=== PATIENT | male | born 1980 | race Caucasian/White ===

== ENCOUNTER 2023-06-24 17:40 | Emergency (ER) | payer OTHER, SELFPAY ==
[2023-06-24 18:14] VITALS: BP 102/70; PULSE 63; RESP 18; TEMP 36.4; O2SAT 99; BMI 21.7
--- NOTE | 2023-06-24 18:19 | ECG_ITS ---
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 Measurements Intervals [place] Rate: 62 P: 48 OH: 169 QRS: 92 QRSD: 86 T: -7 QT: 434 QTc: 442 Interpretive Statements SINUS RHYTHM BORDERLINE RIGHT AXIS DEVIATION [QRS AXIS > 90] ANTEROSEPTAL MYOCARDIAL INFARCTION , OF INDETERMINATE AGE [40+ ms Q WAVE IN V1-V4] No previous ECG available for comparison Electronically Signed On 06-24-2023 22:00:06 CDT by Julio Monaco M.D. https://[employer].[facility] Scienceshr[facility] [place].[employer]/store/NU/[id number] f
[2023-06-24 19:08] LABS: Basophils # 0.1 10^3/uL (0.0-0.1); Basophils % 0.8 %; Eosinophils # 0.4 10^3/uL (0.0-0.8); Eosinophils % 4.5 %; Hematocrit 33.1 % (37-53); Lymphocytes # 1.1 10^3/uL (0.8-4.8); Lymphocytes % 13.9 %; Mean Corpuscular HGB Conc 31.1 g/dL (30-55); Mean Corpuscular Hemoglobin 28.1 pg (27-33); Mean Corpuscular Volume 90.4 fl (82-101); Mean Platelet Volume 9.7 fL (7.4-10.4); Monocytes # 0.7 10^3/uL (0.2-0.9); Monocytes % 8.6 %; Neutrophils # 5.58 10^3/uL (1.8-7.7); Neutrophils % 72.1 %; Nucleated Red Blood Cells % 0 %; Platelet Count 239 10^3/cmm (157-399); Red Blood Count 3.66 10^6/uL (3.85-5.65); Red Cell Distribution Width 14.6 % (12.1-15.1); White Blood Count 7.75 10^3/uL (3.29-11.43)
[2023-06-24 19:29] LABS: Alanine Aminotransferase 6 U/L (0-41); Albumin Level 2.5 g/dL (3.5-5.2); Alkaline Phosphatase 55 U/L (40-130); Anion Gap 13.7 (5-19); Aspartate Amino Transferase 9 U/L (0-40); Blood Urea Nitrogen 37 mg/dL (6-20); Calcium 8.1 mg/dL (8.5-10.5); Carbon Dioxide 28 mmol/L (22-29); Chloride 101 mmol/L (98-107); Globulin 2.5 g/dL (1.3-4.6); Glomerular Filtration Rate 8.1 mL/min (90-130); Glucose 161 mg/dL (65-115); Magnesium 1.9 mg/dL (1.7-2.3); Osmolality Calculated 300 mOsm/kg (285-295); Potassium 3.7 mmol/L (3.5-5.1); Sodium 139 mmol/L (136-145); Total Bilirubin 0.2 mg/dL (0.15-1.2)
[2023-06-24 19:32] LABS: Creatinine Clr Calc Pharmacy 13.7617
--- NOTE | 2023-06-24 19:53 | ED_ITS ---
HPI - General Adult 2 General: Chief complaint: General Medical Stated complaint: abnormal Lab Time Seen by Provider: 06/24/23 18:25 History of Present Illness: 42-year-old male presents emergency depa rtment after having his labs drawn at his nephrology office. Patient states that they contacted him and told him his potassium was 8.1 to come to the emergency department immediately for evaluation. Patient does have a history of CVA and coronary artery bypass graft as well as coronary artery disease and is on peritoneal dialysis. Associated symptoms: Deny chest pain, dyspnea, malaise or palpitations Review of Systems 2 General: Reports: 10 or more systems reviewed and unremarkable except in HPI and below Const: Reports: fatigue; Denies: fever(s) or malaise Card: Denies: chest pain or palpitations Resp: Denies: dyspnea or productive cough Musc: Denies: back pain Physical Exam 2 Narrative: EXAM NARRATIVE: Constitutional: the patient appears well nourished and of normal development. Vital signs as documented. No acute distress at present. Alert and oriented-to person, place, time and situation. Head, eyes, ears, nose, mouth, throat: Normocephalic, atraumatic. Pupils-equal, round, reactive to light. No scleral icterus. Normal-appearing external ears. Normal appearing nasal turbinates, no drainage. No obvious oral lesions, posterior oropharynx without erythema or exudates. Neck: Supple, trachea is midline, no lymphadenopathy, no jugular venous distension, thyromegaly, or carotid bruits. Carotid upstrokes are brisk bilaterally. Lungs: clear to auscultation to all lung amado. Symmetrical rise and fall of chest, no obvious signs of increased work of breathing at present. Cardiac: Regular rate and rhythm, positive S1, S2. No murmurs, rubs or gallops that I can appreciate Abdomen: Soft, non-tender to palpation, normal active bowel sounds to all quadrants. No palpable masses, no organomegaly and abdominal bruits. Extremities: 2+ pulses in the upper extremities that are equal bilaterally, 2+ pulses in the lower extremities that are equal bilaterally. Non-edematous. Moves all extremities well, sensation to all extremities are noted. Skin: Warm, dry, intact. Course 2 Vital Signs: Vital signs: Vital Signs Temperature 97.5 F L 06/24/23 18:14 Pulse Rate 63 06/24/23 18:14 Respiratory Rate 18 06/24/23 18:14 Blood Pressure 102/70 06/24/23 18:14 Pulse Oximetry 99 06/24/23 18:14 Oxygen Delivery Me thod Room Air 06/24/23 18:14 MDM - General Adult Medical Decision Making I will repeat a CBC and CMP as well as magnesium level and obtain EKG. Reevaluation of the patient's potassium level demonstrated that it was 3.7 I suspect the false elevation of 8.1 was due to hemolysis of the blood draw. Differential Diagnosis Hemolysis of blood sample, electrolyte abnormality Medical Records I reviewed the patient's medical records. Lab Data I reviewed the patient's lab results. 06/24/23 19:02 06/24/23 19:02 Laboratory Results WBC 7.75 10^3/uL (3.29-11.43) 06/24/23 19: RBC 3.66 10^6/uL (3.85-5.65) L 06/24/23 19:02 Hgb 10.30 g/dL (11.27-16.99) L 06/24/23 19:02 Hct 33.1 % (37-53) L 06/24/23 19: MCV 90.4 fl (82-101) 06/24/23 19: MCH 28.1 pg (27-33) 06/24/23 19: MCHC 31.1 g/dL (30-55) 06/24/23 19:02 RDW 14.6 % (12.1-15.1) 06/24/23 19:02 Plt Count 239 10^3/cmm (157-399) 06/24/23 19:02 MPV 9.7 fL (7.4-10.4) 06/24/23 19:02 Neut % (Auto) 72.1 % 06/24/23 19: Lymph % (Auto) 13.9 % 06/24/23 19:02 Coffee % (Auto) 8.6 % 06/24/23 19:02 Eos % (Auto) 4.5 % 06/24/23 19:02 Baso % (Auto) 0.8 % 06/24/23 19: Neut # (Auto) 5.58 10^3/uL (1.8-7.7) 06/24/23 19:02 Lymph # (Auto) 1.1 10^3/uL (0.8-4.8) 06/24/23 19:02 Coffee # (Auto) 0.7 10^3/uL (0.2-0.9) 06/24/23 19:02 Eos # (Auto) 0.4 10^3/uL (0.0-0.8) 06/24/23 19:02 Baso # (Auto) 0.1 10^3/uL (0.0-0.1) 06/24/23 19:02 Nucleated RBC % (auto) 0 % 06/24/23 19:02 Nucleated RBCs # 0.0 /100WBC 06/24/23 19:02 Sodium 139 mmol/L (136-145) 06/24/23 19:02 Potassium 3.7 mmol/L (3.5-5.1) 06/24/23 19:02 Chloride 101 mmol/L (98-107) 06/24/23 19:02 Carbon Dioxide 28 mmol/L (22-29) 06/24/23 19:02 Anion Gap 13.7 (5-19) 06/24/23 19:02 BUN 37 mg/dL (6-20) H 06/24/23 19:02 Creatinine 7.4 mg/dL (0.7-1.2) H* 06/24/23 19:02 GFR Calculation 8.1 mL/min (90-130) L 06/24/23 19:02 Glucose 161 mg/dL (65-115) H 06/24/23 19:02 Calculated Osmolality 300 mOsm/kg (285-295) H 06/24/23 19:02 Calcium 8.1 mg/dL (8.5-10.5) L 06/24/23 19:02 Magnesium 1.9 mg/dL (1.7-2.3) 06/24/23 19:02 Total Bilirubin 0.2 mg/dL (0.15-1.2) 06/24/23 19:02 AST 9 U/L (0-40) 06/24/23 19:02 ALT 6 U/L (0-41) 06/24/23 19:02 Alkaline Phosphatase 55 U/L (40-130) 06/24/23 19:02 Total Protein 5.0 g/dL (6.6-8.7) L 06/24/23 19:02 Albumin 2.5 g/dL (3.5-5.2) L 06/24/23 19:02 Globulin 2.5 g/dL (1.3-4.6) 06/24/23 19:02 No radiology studies performed this visit EKG Data EKG 1: Interpretation: Twelve-lead EKG obtained at 1819 reviewed at 1820 demonstrates sinus rhythm ventricular rate 62 bpm, SD interval 169 QRS duration 86 QT 434 QTc [address] elevation or depression to demonstrate acute ischemia or infarction. Discharge Plan Discharge Patient Disposition: Home Clinical Impression: Abnormal laboratory test result Condition: Stable Discharge Orders: Discharge ED (Routine); Ordered 06/24/23 Ordered By: Hiram Abdul Discharge Diet: Usual diet Discharge Activity: Resume usual activity Patient Instructions: Opioid Safety, Pain Management Activity Restrictions/Additional Instructions: Activity Restrictions/Additional Instructions: Thank you for choosing [facility] for your healthcare needs today. Please realize that you were seen in the Emergency Department and that we are providing you with an emergency medical screening exam and this may not be a complete and all inclusive of all the testing and or medical work-up that you may need to determine your ailment or severity of your illness. It is very important that you follow-up as instructed with your Primary care provider or Specialist for additional evaluation and to discuss your medical treatment plan. You may return to the Emergency Department should you have concerns or if your condition changes or worsens in any way. Coding Level of Care Code ED Analytical Clerk for Monik Riley
[2023-06-24 20:14] VITALS: BP 134/88; PULSE 88; RESP 18; O2SAT 100
== END 2023-06-24 20:16 | disposition home or self-care (01) ==
PROVIDERS: Emergency Medicine; Emergency Provider Internal Medicine
DX: R79.9 Abnormal finding of blood chemistry, unspecified (principal)
CPT/HCPCS: 36415; 80053; 83735; 85025; 93005; 99284

== ENCOUNTER 2023-08-08 00:46 | Emergency (ER) | payer OTHER, SELFPAY ==
[2023-08-08 00:47] VITALS: BP 182/96; PULSE 86; RESP 18; TEMP 37.3; O2SAT 97; BMI 23.0
[2023-08-08 01:04] VITALS: BP 182/96; PULSE 89; RESP 16; O2SAT 92
--- NOTE | 2023-08-08 01:22 | W.ED.GENADLT ---
HPI - General Adult General: Chief complaint: General Medical Stated complaint: infection around dialysis port Time Seen by Provider: 08/08/23 00:57 History of Present Illness: 42-year-old peritoneal dialysis patient. He states that he had a lesion on his anterior abdominal wall for the past 2 to 3 days. No fever. It busted open this evening, and had some drainage. He was concerned that it may track into his perineum given his catheter site. He does not feel ill otherwise. He is not having significant abdominal tenderness. Associated symptoms: Reports rash; Deny chest pain, dyspnea or vomiting Review of Systems Const: Denies: fever(s) or chills Card: Denies: chest pain Resp: Denies: dyspnea GI: Denies: abdominal pain or vomiting Skin/Breast: Reports: rash Physical Exam Const: COMMON NORMALS: no acute distress GENERAL APPEARANCE: not ill appearing HENMT: COMMON NORMALS: normocephalic and atraumatic HEAD & SCALP: normocephalic and atraumatic Eye: COMMON NORMALS: Equal, round and reactive pupils present and EOMs intact bilaterally PUPIL: Yes Equal, round and reactive pupils present Neck/C-Spine: GENERAL: Yes trachea midline Chest: CHEST: Yes Symmetrical chest wall rise Resp: COMMON NORMALS: normal respiratory effort and No use of accessory muscles Cardio: COMMON NORMALS: regular rate and regular rhythm RATE: regular rate RHYTHM: regular rhythm GI: COMMON NORMALS: Soft to palpation PALPATION: Yes Soft to palpation, No Tenderness to palpation present (GI) and No Guarding due to palpation present (GI) OTHER: Peritoneal catheter site clean. No tenderness. Neuro: REGINA COMA SCALE: document GCS findings Regina coma scale eye opening: Spontaneous Regina coma scale verbal response: Orientated Burns coma scale motor response: Obey commands Burns coma scale total score: 15 Skin: NARRATIVE SKIN EXAM: Anterior abdominal wall small cellulitic region with erupted small abscess in the area. Course Vital Signs: Vital signs: Vital Signs Temperature 99.1 F 08/08/23 00:47 Pulse Rate 95 08/08/23 02:42 Respiratory Rate 16 08/08/23 02:42 Blood Pressure 168/92 08/08/23 02:42 Pulse Oximetry 98 08/08/23 02:42 Oxygen Delivery Me thod Room Air 08/08/23 00:47 [facility] - General Adult Medical Decision Making The patient has a completely benign belly exam in terms of peritoneal tenderness. He has minimal cellulitis to the anterior abdominal wall with some drainage from the small abscess site. His white blood cell count is 13.9. He is afebrile. His potassium is mildly high at 5.7. He was informed of this. Antibiotics for the treatment of the abdominal wall cellulitis. Return for any new or worsening symptoms. Lab Data 08/08/23 01:44 08/08/23 01:44 Laboratory Results WBC 13.91 10^3/uL (3.29-11.43) H 08/08/23 01:44 RBC 3.21 10^6/uL (3.85-5.65) L 08/08/23 01:44 Hgb 9.20 g/dL (11.27-16.99) L 08/08/23 01:44 Hct 29.5 % (37-53) L 08/08/23 01:44 MCV 91.9 fl (82-101) 08/08/23 01:44 MCH 28.7 pg (27-33) 08/08/23 01:44 MCHC 31.2 g/dL (30-55) 08/08/23 01:44 RDW 15.4 % (12.1-15.1) H 08/08/23 01:44 Plt Count 345 10^3/cmm (157-399) 08/08/23 01:44 MPV 10.0 fL (7.4-10.4) 08/08/23 01:44 Neut % (Auto) 83.0 % 08/08/23 01:44 Lymph % (Auto) 6.8 % 08/08/23 01:44 [place] % (Auto) 6.8 % 08/08/23 01:44 Eos % (Auto) 2.4 % 08/08/23 01:44 Baso % (Auto) 0.7 % 08/08/23 01:44 Neut # (Auto) 11.54 10^3/uL (1.8-7.7) H 08/08/23 01:44 Lymph # (Auto) 0.9 10^3/uL (0.8-4.8) 08/08/23 01:44 [place] # (Auto) 1.0 10^3/uL (0.2-0.9) H 08/08/23 01:44 Eos # (Auto) 0.3 10^3/uL (0.0-0.8) 08/08/23 01:44 Baso # (Auto) 0.1 10^3/uL (0.0-0.1) 08/08/23 01:44 Nucleated RBC % (auto) 0 % 08/08/23 01:44 Nucleated RBCs # 0.0 /100WBC 08/08/23 01:44 Sodium 132 mmol/L (136-145) L 08/08/23 01:44 Potassium 5.7 mmol/L (3.5-5.1) H 08/08/23 01:44 Chloride 91 mmol/L (98-107) L 08/08/23 01:44 Carbon Dioxide 25 mmol/L (22-29) 08/08/23 01:44 Anion Gap 21.7 (5-19) H 08/08/23 01:44 BUN 66 mg/dL (6-20) H 08/08/23 01:44 Creatinine 9.4 mg/dL (0.7-1.2) H* 08/08/23 01:44 GFR Calculation 6.1 mL/min (90-130) L 08/08/23 01:44 Glucose 158 mg/dL (65-115) H 08/08/23 01:44 Calculated Osmolality 296 mOsm/kg (285-295) H 08/08/23 01:44 Calcium 9.0 mg/dL (8.5-10.5) 08/08/23 01:44 C-Reactive Protein 99.5 mg/L (0.0-4.9) H 08/08/23 01:44 No radiology studies performed this visit Discharge Plan Discharge Patient Disposition: Home Clinical Impression: Cellulitis of abdominal wall, Acute hyperkalemia Condition: Stable Prescriptions: New doxycycline hyclate 100 mg tablet 100 mg PO BID 10 Days Qty: 20 0RF Discharge Orders: Discharge ED (Routine); Ordered 08/08/23 Ordered By: Gary Paulino Patient Instructions: Cellulitis (ED), Hyperkalemia (ED), Opioid Safety, Pain Management Activity Restrictions/Additional Instructions: Medication as directed. Monitor very closely for temperature, check at least twice daily for the next few days. Return for worsening abdominal pain, spreading redness despite 2-3 doses of antibiotics, fever greater than 100, vomiting, other concerning symptoms. Please ensure that you complete your peritoneal dialysis, as your potassium is mildly elevated. Coding Level of Care Code ED Supervisor [employer] for Monik Riley
[2023-08-08] MEDS: doxycycline 100 mg Tablet PO (01:31)
[2023-08-08 01:51] VITALS: BP 155/92; PULSE 93; RESP 20; O2SAT 97
[2023-08-08 01:51] LABS: Basophils # 0.1 10^3/uL (0.0-0.1); Basophils % 0.7 %; Eosinophils # 0.3 10^3/uL (0.0-0.8); Eosinophils % 2.4 %; Hematocrit 29.5 % (37-53); Lymphocytes # 0.9 10^3/uL (0.8-4.8); Lymphocytes % 6.8 %; Mean Corpuscular HGB Conc 31.2 g/dL (30-55); Mean Corpuscular Hemoglobin 28.7 pg (27-33); Mean Corpuscular Volume 91.9 fl (82-101); Monocytes % 6.8 %; Neutrophils # 11.54 10^3/uL (1.8-7.7); Nucleated Red Blood Cells % 0 %; Platelet Count 345 10^3/cmm (157-399); Red Blood Count 3.21 10^6/uL (3.85-5.65); Red Cell Distribution Width 15.4 % (12.1-15.1); White Blood Count 13.91 10^3/uL (3.29-11.43)
[2023-08-08 02:01] VITALS: BP 169/96; PULSE 99; RESP 16; O2SAT 95
[2023-08-08 02:03] LABS: Blood Urea Nitrogen 66 mg/dL (6-20); C Reactive Protein 99.5 mg/L (0.0-4.9); Carbon Dioxide 25 mmol/L (22-29); Chloride 91 mmol/L (98-107); Creatinine Clr Calc Pharmacy 11.0937; Glomerular Filtration Rate 6.1 mL/min (90-130); Glucose 158 mg/dL (65-115); Osmolality Calculated 296 mOsm/kg (285-295); Sodium 132 mmol/L (136-145)
[2023-08-08 02:04] LABS: Anion Gap 21.7 (5-19); Potassium 5.7 mmol/L (3.5-5.1)
[2023-08-08 02:42] VITALS: BP 168/92; PULSE 95; RESP 16; O2SAT 98
== END 2023-08-08 02:43 | disposition home or self-care (01) ==
PROVIDERS: Emergency Provider Emergency Medicine
DX: L03.311 Cellulitis of abdominal wall (principal); E87.5 Hyperkalemia
CPT/HCPCS: 36415; 80048; 85025; 86140; 99283

== ENCOUNTER 2023-09-14 16:25 | Emergency (ER) | payer MEDICARE, SELFPAY ==
[2023-09-14] VITALS (12 sets, daily range): BP systolic 147–182; BP diastolic 72–98; PULSE 67–74; RESP 16–18; TEMP 36.6–37; O2SAT 98–100; BMI 21.9
--- NOTE | 2023-09-14 16:53 | ED_ITS ---
Documented by User: Hugo Cruz DO 09/14/23 17:43 HPI - Recheck/Abnormal Lab/Rx 2 General: Chief Complaint: Recheck/Abnormal Lab/Rx Stated Complaint: Hemoglobin was 6.2, sent by dr Tatum Seen by Provider: 09/14/23 16:36 Source: patient and family Mode of arrival: ambulatory Limitations: no limitations History of Present Illness: This patient was referred by dialysis coordinator to the emergency department. Apparently on routine laboratories he was noted to have a hemoglobin of 6.2. Patient denies any knowledge of any blood loss. He denies any black tarry stools blood in his stools vomiting blood etc. He denies any fevers or chills chest pain shortness of breath. He states his appetites been diminished with no particular reason. He states he is also felt a little more fatigued than usual. He has end-stage renal disease and on nightly peritoneal dialysis. He has not had any fevers or chills and his dialysate has been clear which is confirmed by his spouse who is present. No prior history of gastrointestinal bleeding etc. He does have known coronary disease had coronary artery bypass several years ago and had a what was told to him by small heart attack in the within the last 2 years. Again he denies any ongoing constitutional symptoms other than described. He is an ex-smoker and does not consume alcohol. Context: called for abnormal lab result Review of Systems 2 Const: Reports: change in appetite and fatigue; Denies: fever(s) or chills Eyes: Denies: change in vision ENMT: Denies: throat pain, odynophagia, nasal discharge or nasal congestion Card: Denies: chest pain, palpitations, irregular heart rhythm, syncope or pre-syncope Resp: Denies: dyspnea, productive cough or non-productive cough GI: Denies: abdominal pain, nausea, vomiting, hematemesis, hematochezia or melena : Reports: oliguria; Denies: flank pain Musc: Denies: neck pain, back pain, extremity pain or extremity swelling Skin/Breast: Denies: rash Neuro: Denies: headache(s), numbness in extremities or weakness in extremities [place]/Lymph: Denies: easy bruising, easy bleeding or petechiae Physical Exam 2 Narrative: EXAM NARRATIVE: Pale appearing and thin gentleman but he is oriented and responsive and appears to be in no acute distress. Responds appropriately to examiner. Const: COMMON NORMALS: no acute distress, patient oriented x3 and alert G ENERAL APPEARANCE: cooperative, comfortable and well kempt NUTRITIONAL APPEARANCE: thin HENMT: COMMON NORMALS: Normal external nose present, Normal nasal mucous membranes and turbinates present, moist oral mucous membranes and oropharynx normal NOSE: Normal external nose present and Normal nasal mucous membranes and turbinates present TEETH & GINGIVA: Yes gingiva abnormal pallid Eye: COMMON NORMALS: Equal, round and reactive pupils present and EOMs intact bilaterally PUPIL: Yes Equal, round and reactive pupils present Neck/C-Spine: COMMON NORMALS: full ROM and no JVD Chest: COMMONS NORMALS: normal inspection of the chest and normal palpation of entire chest wall Resp: COMMON NORMALS: normal respiratory effort, No use of accessory muscles and clear to auscultation bilaterally AUSCULTATION: clear to auscultation bilaterally Cardio: COMMON NORMALS: no JVD, regular rate, No murmurs present (Cardio) and Peripheral pulses 2+ throughout JUGULAR VENOUS DISTENTION: no JVD RATE: r egular rate PERIPHERAL PULSES: Peripheral pulses 2+ throughout GI: COMMON NORMALS: Normal to inspection, nondistended, normoactive bowel sounds present, Soft to palpation and non-tender PALPATION: Yes Soft to palpation Back/Pelvis: COMMON NORMALS: no thoracic nor lumbar tenderness and thoraco- lumbar ROM normal Extremity: COMMON NORMALS: normal to inspection, full ROM, no calf tenderness and no pedal edema Neuro: COMMON NORMALS: patient oriented x3, moves all extremities, no focal motor deficits and no sensory deficits noted SENSORIUM/ORIENTATION: Yes alert Psych: COMMON NORMALS: mental status grossly normal APPEARANCE: Yes well kempt Skin: COMMON NORMALS: no rashes or lesions noted, turgor normal and no petechiae GENERAL SKIN EXAM: no rashes or lesions noted and turgor normal Course 2 Reevaluation(s): Reevaluation #1: I confirmed with the patient and spouse of his hemoglobin being less than 7 and given his coronary disease is prudent to go ahead and give him a unit of blood. Again he has no history to suggest acute blood loss so I strongly encouraged him to monitor his stools for tarry black tarry stools bright red blood etc. and that he should have a repeat blood count in approximately 7 to 10 days to ensure that he is not having any ongoing blood loss. We also given a single dose of oral potassium of 25meq. I encouraged potassium rich foods. Also encouraged a repeat potassium level in same time he gets a repeat blood count. Both patient and spouse voiced an understanding of the plan of care and the recommendations. Time: 17:40 Vital Signs: Vital signs: Vital Signs Temperature 98.1 F 09/14/23 20:49 Pulse Rate 73 09/14/23 20:49 Respiratory Rate 18 09/14/23 20:49 Blood Pressure 162/85 09/14/23 20:49 Pulse Oximetry 100 09/14/23 20:49 Oxygen Delivery Me thod Room Air 09/14/23 19:21 MDM - Recheck/Abnormal Lab/Rx Medical Decision Making Patient was referred to the emergency department by dialysis coordinator due to a low hemoglobin. No history to suggest acute blood loss. He specifically denied melanotic stools bright red blood per rectum or any other potential source of blood loss. Repeat hemoglobin here was 6.9 with hematocrit of 22.7 with platelet count of 381,000. He has known coronary disease had previous coronary bypass and is symptomatic with fatigue and decreased appetite. Plan will be to transfuse 1 unit of packed red cells and then plan for discharge with close follow-up. Medical Records I reviewed the patient's medical records. Prior CBC Lab Data I reviewed the patient's lab results. 09/14/23 16:46 09/14/23 16:46 Laboratory Results WBC 11.14 10^3/uL (3.29-11.43) 09/14/23 16:46 RBC 2.49 10^6/uL (3.85-5.65) L 09/14/23 16:46 Hgb 6.90 g/dL (11.27-16.99) L 09/14/23 16:46 Hct 22.7 % (37-53) L 09/14/23 16:46 MCV 91.2 fl (82-101) 09/14/23 16:46 MCH 27.7 pg (27-33) 09/14/23 16:46 MCHC 30.4 g/dL (30-55) 09/14/23 16:46 RDW 13.9 % (12.1-15.1) 09/14/23 16:46 Plt Count 381 10^3/cmm (157-399) 09/14/23 16:46 MPV 10.0 fL (7.4-10.4) 09/14/23 16:46 Neut % (Auto) 85.7 % 09/14/23 16:46 Lymph % (Auto) 7.7 % 09/14/23 16:46 [place] % (Auto) 4.8 % 09/14/23 16:46 Eos % (Auto) 0.9 % 09/14/23 16:46 Baso % (Auto) 0.4 % 09/14/23 16:46 Neut # (Auto) 9.53 10^3/uL (1.8-7.7) H 09/14/23 16:46 Lymph # (Auto) 0.9 10^3/uL (0.8-4.8) 09/14/23 16:46 [place] # (Auto) 0.5 10^3/uL (0.2-0.9) 09/14/23 16:46 Eos # (Auto) 0.1 10^3/uL (0.0-0.8) 09/14/23 16:46 Baso # (Auto) 0.1 10^3/uL (0.0-0.1) 09/14/23 16:46 Nucleated RBC % (auto) 0 % 09/14/23 16:46 Nucleated RBCs # 0.0 /100WBC 09/14/23 16:46 Sodium 132 mmol/L (136-145) L 09/14/23 16:46 Potassium 2.8 mmol/L (3.5-5.1) L* 09/14/23 16:46 Chloride 90 mmol/L (98-107) L 09/14/23 16:46 Carbon Dioxide 26 mmol/L (22-29) 09/14/23 16:46 Anion Gap 18.8 (5-19) 09/14/23 16:46 BUN 56 mg/dL (6-20) H 09/14/23 16:46 Creatinine 8.6 mg/dL (0.7-1.2) H* 09/14/23 16:46 GFR Calculation 6.8 mL/min (90-130) L 09/14/23 16:46 Glucose 227 mg/dL (65-115) H 09/14/23 16:46 Calculated Osmolality 297 mOsm/kg (285-295) H 09/14/23 16:46 Calcium 8.5 mg/dL (8.5-10.5) 09/14/23 16:46 Total Bilirubin 0.2 mg/dL (0.15-1.2) 09/14/23 16:46 AST 7 U/L (0-40) 09/14/23 16:46 ALT < 5 U/L (0-41) 09/14/23 16:46 Alkaline Phosphatase 63 U/L (40-130) 09/14/23 16:46 Total Protein 6.9 g/dL (6.6-8.7) 09/14/23 16:46 Albumin 2.5 g/dL (3.5-5.2) L 09/14/23 16:46 Globulin 4.4 g/dL (1.3-4.6) 09/14/23 16:46 Blood Type AB Positive 09/14/23 17:49 Rho(D) Type Rh positive 09/14/23 17:49 Antibody Screen Negative 09/14/23 17:49 Crossmatch See Detail 09/14/23 17:49 Discharge Plan Discharge Patient Disposition: Home Clinical Impression: Anemia Qualifiers: Anemia type: due to chronic kidney disease Chronic kidney disease Qualifiers: Chronic kidney disease stage: on chronic dialysis Qualified Code(s): N18.6 - End stage renal disease Condition: Stable Discharge Orders: Discharge ED (Routine); Ordered 09/14/23 Ordered By: Marixa Duran Discharge Diet: Usual diet Discharge Activity: Increase activity as tolerated Patient Instructions: Opioid Safety, Pain Management Activity Restrictions/Additional Instructions: As we discussed you had an anemia that we transfused you a unit of red blood cells because of your history of coronary artery disease. Did not have any history to suggest this ongoing blood loss however we strongly recommend that you monitor your stools for any blood or black tarry stools. We also recommend that you get a repeat blood count in 1 week to ensure that your blood count is remaining stable and increasing. We also recommend at that time you should have your potassium rechecked to make sure that it is back to the normal range as well. We encourage potassium rich foods such as citrus leafy green vegetables etc. If it anytime you discover that you have bright red blood in your stools black tarry stools become short of breath chest pain or any other concerning symptoms return to this or the nearest emergency department immediately. Coding Level of Care Code ED Ophthalmology Surgical Technician for Chg Fwd Documented by User: Marixa Duran MD 09/14/23 21:06 HPI - Recheck/Abnormal Lab/Rx 2 General: Chief Complaint: Recheck/Abnormal Lab/Rx Stated Complaint: Hemoglobin was 6.2, sent by Time Seen by Provider: 09/14/23 16:36 Course 2 Vital Signs: Vital signs: Vital Signs Temperature 98.1 F 09/14/23 20:49 Pulse Rate 73 09/14/23 20:49 Respiratory Rate 18 09/14/23 20:49 Blood Pressure 162/85 09/14/23 20:49 Pulse Oximetry 100 09/14/23 20:49 Oxygen Delivery Me thod Room Air 09/14/23 19:21 MDM - Recheck/Abnormal Lab/Rx Lab Data 09/14/23 16:46 09/14/23 16:46 Laboratory Results WBC 11.14 10^3/uL (3.29-11.43) 09/14/23 16:46 RBC 2.49 10^6/uL (3.85-5.65) L 09/14/23 16:46 Hgb 6.90 g/dL (11.27-16.99) L 09/14/23 16:46 Hct 22.7 % (37-53) L 09/14/23 16:46 MCV 91.2 fl (82-101) 09/14/23 16:46 MCH 27.7 pg (27-33) 09/14/23 16:46 MCHC 30.4 g/dL (30-55) 09/14/23 16:46 RDW 13.9 % (12.1-15.1) 09/14/23 16:46 Plt Count 381 10^3/cmm (157-399) 09/14/23 16:46 MPV 10.0 fL (7.4-10.4) 09/14/23 16:46 Neut % (Auto) 85.7 % 09/14/23 16:46 Lymph % (Auto) 7.7 % 09/14/23 16:46 [place] % (Auto) 4.8 % 09/14/23 16:46 Eos % (Auto) 0.9 % 09/14/23 16:46 Baso % (Auto) 0.4 % 09/14/23 16:46 Neut # (Auto) 9.53 10^3/uL (1.8-7.7) H 09/14/23 16:46 Lymph # (Auto) 0.9 10^3/uL (0.8-4.8) 09/14/23 16:46 [place] # (Auto) 0.5 10^3/uL (0.2-0.9) 09/14/23 16:46 Eos # (Auto) 0.1 10^3/uL (0.0-0.8) 09/14/23 16:46 Baso # (Auto) 0.1 10^3/uL (0.0-0.1) 09/14/23 16:46 Nucleated RBC % (auto) 0 % 09/14/23 16:46 Nucleated RBCs # 0.0 /100WBC 09/14/23 16:46 Sodium 132 mmol/L (136-145) L 09/14/23 16:46 Potassium 2.8 mmol/L (3.5-5.1) L* 09/14/23 16:46 Chloride 90 mmol/L (98-107) L 09/14/23 16:46 Carbon Dioxide 26 mmol/L (22-29) 09/14/23 16:46 Anion Gap 18.8 (5-19) 09/14/23 16:46 BUN 56 mg/dL (6-20) H 09/14/23 16:46 Creatinine 8.6 mg/dL (0.7-1.2) H* 09/14/23 16:46 GFR Calculation 6.8 mL/min (90-130) L 09/14/23 16:46 Glucose 227 mg/dL (65-115) H 09/14/23 16:46 Calculated Osmolality 297 mOsm/kg (285-295) H 09/14/23 16:46 Calcium 8.5 mg/dL (8.5-10.5) 09/14/23 16:46 Total Bilirubin 0.2 mg/dL (0.15-1.2) 09/14/23 16:46 AST 7 U/L (0-40) 09/14/23 16:46 ALT < 5 U/L (0-41) 09/14/23 16:46 Alkaline Phosphatase 63 U/L (40-130) 09/14/23 16:46 Total Protein 6.9 g/dL (6.6-8.7) 09/14/23 16:46 Albumin 2.5 g/dL (3.5-5.2) L 09/14/23 16:46 Globulin 4.4 g/dL (1.3-4.6) 09/14/23 16:46 Blood Type AB Positive 09/14/23 17:49 Rho(D) Type Rh positive 09/14/23 17:49 Antibody Screen Negative 09/14/23 17:49 Crossmatch See Detail 09/14/23 17:49 No radiology studies performed this visit Discharge Plan Discharge Patient Disposition: Home Clinical Impression: Anemia Qualifiers: Anemia type: due to chronic kidney disease Chronic kidney disease Qualifiers: Chronic kidney disease stage: on chronic dialysis Qualified Code(s): N18.6 - End stage renal disease Condition: Stable Discharge Orders: Discharge ED (Routine); Ordered 09/14/23 Ordered By: Marixa Duran Discharge Diet: Usual diet Discharge Activity: Increase activity as tolerated Patient Instructions: Opioid Safety, Pain Management Activity Restrictions/Additional Instructions: As we discussed you had an anemia that we transfused you a unit of red blood cells because of your history of coronary artery disease. Did not have any history to suggest this ongoing blood loss however we strongly recommend that you monitor your stools for any blood or black tarry stools. We also recommend that you get a repeat blood count in 1 week to ensure that your blood count is remaining stable and increasing. We also recommend at that time you should have your potassium rechecked to make sure that it is back to the normal range as well. We encourage potassium rich foods such as citrus leafy green vegetables etc. If it anytime you discover that you have bright red blood in your stools black tarry stools become short of breath chest pain or any other concerning symptoms return to this or the nearest emergency department immediately. Coding Level of Care Code ED Ophthalmology Surgical Technician for Monik Riley
[2023-09-14 16:55] LABS: Basophils # 0.1 10^3/uL (0.0-0.1); Basophils % 0.4 %; Eosinophils # 0.1 10^3/uL (0.0-0.8); Eosinophils % 0.9 %; Hematocrit 22.7 % (37-53); Lymphocytes # 0.9 10^3/uL (0.8-4.8); Lymphocytes % 7.7 %; Mean Corpuscular HGB Conc 30.4 g/dL (30-55); Mean Corpuscular Hemoglobin 27.7 pg (27-33); Mean Corpuscular Volume 91.2 fl (82-101); Monocytes # 0.5 10^3/uL (0.2-0.9); Monocytes % 4.8 %; Neutrophils # 9.53 10^3/uL (1.8-7.7); Neutrophils % 85.7 %; Nucleated Red Blood Cells % 0 %; Platelet Count 381 10^3/cmm (157-399); Red Blood Count 2.49 10^6/uL (3.85-5.65); Red Cell Distribution Width 13.9 % (12.1-15.1); White Blood Count 11.14 10^3/uL (3.29-11.43)
[2023-09-14 17:09] LABS: Alanine Aminotransferase < 5 U/L (0-41); Albumin Level 2.5 g/dL (3.5-5.2); Alkaline Phosphatase 63 U/L (40-130); Anion Gap 18.8 (5-19); Aspartate Amino Transferase 7 U/L (0-40); Blood Urea Nitrogen 56 mg/dL (6-20); Calcium 8.5 mg/dL (8.5-10.5); Carbon Dioxide 26 mmol/L (22-29); Chloride 90 mmol/L (98-107); Creatinine Clr Calc Pharmacy 11.8983; Globulin 4.4 g/dL (1.3-4.6); Glomerular Filtration Rate 6.8 mL/min (90-130); Glucose 227 mg/dL (65-115); Osmolality Calculated 297 mOsm/kg (285-295); Sodium 132 mmol/L (136-145); Total Bilirubin 0.2 mg/dL (0.15-1.2); Total Protein 6.9 g/dL (6.6-8.7)
[2023-09-14 17:19] LABS: Potassium 2.8 mmol/L (3.5-5.1)
[2023-09-14] MEDS: potassium bicarb 25 mEq Tablet PO (18:11)
--- NOTE | 2023-09-14 19:20 | PC.NURSE ---
Patient signed blood consent form, had no questions or concerns after education. Witnessed by charge nurse Irena NAIK.
--- NOTE | 2023-09-14 19:36 | PC.NURSE ---
Patient denies adverse effects from blood transfusion at this time; denies shortness of breath, chest pain, general illness.
[2023-09-14] MEDS: sodium chloride 0.9% 100 mL Bag 50 ML IV (19:51)
--- NOTE | 2023-09-14 21:24 | PC.NURSE ---
1 unit of blood finished transfusion, patient had no questions, concerns or complaints.
== END 2023-09-14 22:26 | disposition home or self-care (01) ==
PROVIDERS: Emergency Medicine; Emergency Provider Emergency Medicine
DX: N18.6 End stage renal disease (principal); D63.1 Anemia in chronic kidney disease; Z99.2 Dependence on renal dialysis; I25.10 Atherosclerotic heart disease of native coronary artery without angina pectoris; Z95.1 Presence of aortocoronary bypass graft; I25.2 Old myocardial infarction
CPT/HCPCS: 36415; 36430; 80053; 85025; 86850; 86900; 86920; 99284; P9016

== ENCOUNTER 2023-09-15 01:04 | Emergency (ER) | payer MEDICARE, SELFPAY ==
[2023-09-15 01:06] VITALS: BP 201/99; PULSE 78; RESP 16; TEMP 37.2; O2SAT 98; BMI 21.9
--- NOTE | 2023-09-15 01:13 | USR_ITS ---
PROCEDURE INFORMATION: Exam: US Duplex Left Lower Extremity Arteries Or Arterial Bypass Grafts Exam date and time: 09/15/2023 1:48 AM Age: 42 years old Clinical indication: Other: Marked swelling of the left lateral calf 4 hours after blood transfusion for anemia. Patient HX: Iddm x 10 years. ; Additional info: Swelling left caballero TECHNIQUE: Imaging protocol: Left Real-time duplex scan of the arteries or arterial bypass grafts of the left lower extremity with 2-D deal scale, color Doppler flow and spectral waveform analysis. Images documented and saved. COMPARISON: US CV venous duplex [facility] [id number] 09/15/2023 1:27 AM FINDINGS: Left common femoral artery: No occlusion or significant stenosis. Normal waveform. Left superficial femoral artery: No occlusion or significant stenosis. Normal waveform. Left popliteal artery: No occlusion or significant stenosis. Normal waveform. Left calf/foot arteries: No occlusion or significant stenosis in the visualized arteries. Normal waveforms. Dorsalis pedis artery is patent. Soft tissues: Scattered edema of the left calf. US/CV arterial duplex [facility] [id number] IMPRESSION: 1. No significant stenosis or occlusion. 2. Scattered edema of the left calf.
--- NOTE | 2023-09-15 01:13 | USR_ITS ---
PROCEDURE INFORMATION: Exam: US Duplex Left Lower Extremity Veins, Limited Exam date and time: 09/15/2023 1:27 AM Age: 42 years old Clinical indication: Other: Patient was seen this er at 9pm 09/14/23 found anemic and given a blood transfusion and discharged to home. Patient went home and within a few hours, a spontaneous swelling and burning sensation began to form on his lateral left calf. He returned to this er. ; Additional info: Swelling left caballero. TECHNIQUE: Imaging protocol: Real-time duplex ultrasound of the left extremity with 2-D deal scale, color Doppler flow and spectral waveform analysis including responses to compression and other maneuvers (when performed) with image documentation. Limited exam focused on the left lower extremity veins. COMPARISON: No relevant prior studies available. FINDINGS: Left deep veins: Unremarkable. The common femoral, femoral, proximal profunda femoral and popliteal veins are patent without thrombus. Normal Doppler waveforms. Normal compressibility and/or augmentation response. Superficial veins: Greater saphenous vein at the saphenofemoral junction is patent without thrombus. Soft tissues: Within the area of swelling of the lateral aspect of the left calf there is a heterogeneous collection suspicious for hematoma. Hematoma measures a proximally 8.5 x 2.5 x 5.4 cm. US/[place] [id number] IMPRESSION: 1. No DVT. 2. Left calf hematoma. Recommend clinical follow-up to ensure resolution.
--- NOTE | 2023-09-15 01:15 | W.ED.EXTPRO ---
HPI - Extremity Problem General: Chief complaint: Extremity Problem,Nontraumatic Stated complaint: LEG SWELLING Time Seen by Provider: 09/15/23 01:13 History of Present Illness: 42-year-old man with a history of end-stage renal disease on dialysis and anemia who had received transfusion just a couple hours ago here in the emergency room he says when he got home he developed a painful swelling on his left caballero. He says it has grown very rapidly and is very painful. It is a little bit warm but not erythematous. He does not remember any injuries. Review of Systems Narrative: Constitutional symptoms: Negative except as documented in HPI. Skin symptoms: Negative except as documented in HPI. Eye symptoms: Negative except as documented in HPI. ENMT symptoms: Negative except as documented in HPI. Respiratory symptoms: Negative except as documented in HPI. Cardiovascular symptoms: Negative except as documented in HPI. Gastrointestinal symptoms: Negative except as documented in HPI. Genitourinary symptoms: Negative except as documented in HPI. Musculoskeletal symptoms: Negative except as documented in HPI. Neurologic symptoms: Negative except as documented in HPI. Psychiatric symptoms: Negative except as documented in HPI. Endocrine symptoms: Negative except as documented in HPI. Physical Exam Narrative: EXAM NARRATIVE: General: Alert, no acute distress. Skin: Warm, dry. Head: Normocephalic, atraumatic. Neck: Supple, trachea midline. Eye: Extraocular movements are intact. Ears, nose, mouth and throat: mucosa moist. Cardiovascular: Regular, Normal peripheral perfusion. Respiratory: Lungs are clear to auscultation, respirations are non-labored, breath sounds are equal, Symmetrical chest wall expansion. Gastrointestinal: Soft, Nontender, Non distended, Normal bowel sounds. Musculoskeletal: Normal ROM, no deformity. There is a large swelling on the left lateral caballero. This is warm but not erythematous. Is tender to palpation. Neurological: Alert and oriented, No focal neurological deficit observed. Psychiatric: Cooperative, appropriate mood & affect. Course Vital Signs: Vital signs: Vital Signs Temperature 98.9 F 09/15/23 01:06 Pulse Rate 71 09/15/23 04:07 Respiratory Rate 16 09/15/23 01:06 Blood Pressure 164/89 09/15/23 04:07 Pulse Oximetry 98 09/15/23 04:07 Oxygen Delivery Me thod Room Air 09/15/23 02:20 MDM - Extremity (Nontraumatic) Medical Decision Making Ultrasound was ordered to evaluate for DVT or hematoma or to arterial bleed. Ultrasound shows a large hematoma. Some edema in the calf but no DVT. This was read by the radiologist. Assessment and plan: Leg hematoma - Discharged home - Discussed plan with patient. Answered any questions. - Evaluation and treatment of this problem were appropriate in the emergency setting. Lab Data Radiology Impressions Duplex Scan Lower Extremity Artery 09/15/23 01:13 IMPRESSION: 1. No significant stenosis or occlusion. 2. Scattered edema of the left calf. Venous Duplex 09/15/23 01:13 IMPRESSION: 1. No DVT. 2. Left calf hematoma. Recommend clinical follow-up to ensure resolution. All radiology interpretation(s) finalized by discharge Discharge Plan Discharge Patient Disposition: Home Clinical Impression: Hematoma of leg Qualifiers: Encounter type: initial encounter Laterality: left Qualified Code(s): S80.12XA - Contusion of left lower leg, initial encounter Condition: Stable Discharge Orders: Discharge ED (Routine); Ordered 09/15/23 Ordered By: Marixa Duran Discharge Diet: Usual diet Discharge Activity: Increase activity as tolerated Patient Instructions: P.R.I.C.E. Treatment (ED) Activity Restrictions/Additional Instructions: Thank you for choosing [facility] for your healthcare needs today. Please realize this is an emergency room and that we are providing you with a medical screening exam and this may not be complete and all inclusive of all the testing and or work up that you may need to determine your ailment or severity of your illness. You have been screened and evaluated and felt safe for discharge. Health conditions do change or evolve sometimes and as such it is important that you follow up with your Primary Doctor to be re checked, 3-5 days is a general good time frame for follow up. You are always welcome to return to the ED for re assessment if your symptoms are worsening or you have new concerns Coding Level of Care Code ED Endodontist for Monik Riley
[2023-09-15 02:20] VITALS: BP 177/94; PULSE 75; O2SAT 96
[2023-09-15] MEDS: HYDROcodone-acetaminophen 10-325 mg Tablet 1 TAB PO (03:12)
[2023-09-15 04:07] VITALS: BP 164/89; PULSE 71; O2SAT 98
[2023-09-15 04:41] VITALS: BP 164/90; PULSE 75; RESP 16; O2SAT 99
--- NOTE | 2023-09-15 05:00 | PC.NURSE ---
Patient requested nurse at bedside, stating that the mask to his BiPap was leaking. Nurse adjusted mask but not to patient's liking or comfort. Patient then asked for bipap to be removed, and nurse educated patient that if bipap were to be removed, his O2 would drop. Patient then yelled I would rather fucking than wear this mask.
== END 2023-09-15 06:24 | disposition home or self-care (01) ==
PROVIDERS: Emergency Provider Emergency Medicine
DX: S80.12XA Contusion of left lower leg, initial encounter (principal); N18.6 End stage renal disease; Z99.2 Dependence on renal dialysis; X58.XXXA Exposure to other specified factors, initial encounter
CPT/HCPCS: 93926; 93971; 99284

== ENCOUNTER 2023-10-14 10:17 | Observation (INO) | payer MEDICARE, SELFPAY ==
[2023-10-14] VITALS (11 sets, daily range): BP systolic 123–193; BP diastolic 96–120; PULSE 83–120; RESP 14–18; TEMP 36.6–37; O2SAT 91–99; BMI 19.6
--- NOTE | 2023-10-14 10:16 | ECG_ITS ---
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 Measurements Intervals [place] Rate: 116 P: 78 [place]: 144 QRS: 64 QRSD: 90 T: 41 QT: 352 QTc: 490 Interpretive Statements SINUS TACHYCARDIA ANTEROSEPTAL MYOCARDIAL INFARCTION , OF INDETERMINATE AGE [40+ ms Q WAVE IN V1-V4] Compared to ECG 06/24/2023 18:19:21 Sinus rhythm no longer present Myocardial infarct finding still present Electronically Signed On 10-14-2023 18:42:16 CDT by Julio Monaco M.D. [email or web address] TECHNOLOGIESgreene county hospitalRevlselect medical specialty hospital - [email or web address]/[id number] aviva
--- NOTE | 2023-10-14 10:27 | XR_ITS ---
WS: [id number] XR chest 1V portable [id number] REASON FOR EXAM: chest pain FINDINGS: No previous examination for comparison. Previous aorto coronary artery bypass surgery. Mild tortuosity of the thoracic aorta. Normal heart size. Minimal calcified granulomatous disease bilaterally. No acute pulmonary parenchymal or pleural disease. No lung nodule or lung mass. No mediastinal or hilar adenopathy. Old healed fracture of the surgical neck of the left humerus. Moderate degenerative spondylosis in the mid and lower thoracic spine. XR/XR chest 1V portable [id number] IMPRESSION: No acute chest abnormality.
[2023-10-14 10:45] LABS: Basophils # 0.1 10^3/uL (0.0-0.1); Basophils % 0.4 %; Eosinophils # 0.1 10^3/uL (0.0-0.8); Eosinophils % 0.4 %; Lymphocytes # 1.2 10^3/uL (0.8-4.8); Lymphocytes % 8.2 %; Mean Corpuscular HGB Conc 30.7 g/dL (30-55); Mean Corpuscular Hemoglobin 28.6 pg (27-33); Mean Corpuscular Volume 93.2 fl (82-101); Mean Platelet Volume 9.8 fL (7.4-10.4); Monocytes # 1.2 10^3/uL (0.2-0.9); Monocytes % 8.1 %; Neutrophils # 11.73 10^3/uL (1.8-7.7); Neutrophils % 82.5 %; Nucleated Red Blood Cells % 0 %; Platelet Count 346 10^3/cmm (157-399); Red Blood Count 3.22 10^6/uL (3.85-5.65); Red Cell Distribution Width 17.2 % (12.1-15.1); White Blood Count 14.21 10^3/uL (3.29-11.43)
[2023-10-14 11:11] LABS: Alanine Aminotransferase 13 U/L (0-41); Albumin Level 2.8 g/dL (3.5-5.2); Alkaline Phosphatase 62 U/L (40-130); Anion Gap 20.5 (5-19); Aspartate Amino Transferase 23 U/L (0-40); Blood Urea Nitrogen 75 mg/dL (6-20); Calcium 8.9 mg/dL (8.5-10.5); Carbon Dioxide 31 mmol/L (22-29); Chloride 90 mmol/L (98-107); Creatinine Clr Calc Pharmacy 12.9544; Globulin 3.8 g/dL (1.3-4.6); Glomerular Filtration Rate 7.9 mL/min (90-130); Glucose 119 mg/dL (65-115); Magnesium 1.9 mg/dL (1.7-2.3); Osmolality Calculated 309 mOsm/kg (285-295); Potassium 3.5 mmol/L (3.5-5.1); Sodium 138 mmol/L (136-145); Total Bilirubin 0.3 mg/dL (0.15-1.2); Total Protein 6.6 g/dL (6.6-8.7)
--- NOTE | 2023-10-14 11:17 | PC.PHAR ---
PT COULD NOT REMEMBER WHAT STRENGTH OF CLONIDINE OR LISINOPRIL. MARLENI HAS NO RECORD OF EITHER. SONDRA HAS THEM ON FILE AND HAS NEVER FILLED LISINOPRIL. PHARMACIST-EDSON- VERIFIED ENTIRE MED LIST WITH STRENGTH, DOSAGE AND DAYS SUPPLY.
[2023-10-14 11:28] LABS: Troponin(5th) Baseline 309 ng/L (0-15)
--- NOTE | 2023-10-14 11:39 | ED_ITS ---
HPI - Chest Pain 2 General: Chief Complaint: Chest Pain Stated Complaint: cp, n/v Time Seen by Provider: 10/14/23 10:21 History of Present Illness: This patient is a 43 year old presenting with chest pain that started at about 7 this morning. He reports that the pain went on until he was given nitro - and now it is almost gone. He describes a squeezing type of pain and also felt like his heart was pounding out of his chest. He has had a heart attack before and this felt similar but with no radiation - which he did have with the heart attack. He also has had some nausea. No abdominal pain. he does peritoneal dialysis but didn't do a dwell last night. He also hasn't taken any of his medications since yesterday afternoon. He denies fever, chills. He makes a small amount of urine and denies urinary symptoms. He denies skin sores. He does have a large swelling on his left lower leg which he has been told is a hematoma. It has been present for about a month and is improving. He was seen here in early September and got a blood transfusion. PFSH ED 2 PFSH: Medical History (Updated 10/14/23 @ 14:56 by Chris Arnold MD) Restless leg syndrome Peritonitis CAD (coronary artery disease) Depression End-stage renal disease on peritoneal dialysis Anemia Surgical History (Updated 10/14/23 @ 14:42 by Chris Arnold MD) Hx of CABG Social History (Updated 10/14/23 @ 14:43 by Chris Arnold MD) Alcohol intake: never Substance/Drug Use: current Other substance/drug use details: Medical marijuana Physical Exam 2 Const: COMMON NORMALS: no acute distress, patient oriented x3, no limitations and alert GENERAL APPEARANCE: cooperative and comfortable HENMT: HEAD & SCALP: normal to inspection FACE & SINUS: normal facial exam Eye: GENERAL EYE: appearance normal, both eyes and all related structures Neck/C-Spine: COMMON NORMALS: supple, no meningeal signs and no JVD Chest: COMMONS NORMALS: normal inspection of the chest Resp: COMMON NORMALS: normal respiratory effort and No use of accessory muscles AUSCULTATION: diminished lung sounds (bases) bilateral Cardio: COMMON NORMALS: no JVD, regular rate, regular rhythm and No murmurs present (Cardio) RATE: regular rate and tachycardic RHYTHM: regular rhythm GI: COMMON NORMALS: Normal to inspection, nondistended, normoactive bowel sounds present, Soft to palpation and non-tender INSPECTION: Yes normal to inspection AUSCULTATION: Yes normoactive bowel sounds PALPATION: Yes Soft to palpation OTHER: peritoneal dialysis catheter Back/Pelvis: COMMON NORMALS: thoracic and lumbar spine normal to inspection Extremity: COMMON NORMALS: normal to inspection LEFT LOWER EXTREMITY: Yes lower leg (hematoma, mild erythema) Neuro: COMMON NORMALS: patient oriented x3, moves all extremities, no focal motor deficits and no sensory deficits noted SENSORIUM/ORIENTATION: Yes alert MENINGEAL SIGNS: Yes no meningeal signs Psych: COMMON NORMALS: mental status grossly normal, cooperative and normal affect Skin: COMMON NORMALS: no rashes or lesions noted and turgor normal N ARRATIVE SKIN EXAM: pale GENERAL SKIN EXAM: no rashes or lesions noted and turgor normal Course 2 Vital Signs: Vital signs: Vital Signs Temperature 98.6 F 10/14/23 16:00 Pulse Rate 88 10/14/23 16:00 Respiratory Rate 16 10/14/23 16:00 Blood Pressure 184/96 10/14/23 16:00 Pulse Oximetry 95 10/14/23 16:00 Oxygen Delivery Me thod Room Air 10/14/23 16:00 MDM - Chest Pain Medical Decision Making Patient with history of difficult to control hypertension - on 4 medications for this as well as diuretics. Hasn't taken any in 18 hours or so. He also did not do his dialysis last night. He has severe chest pain today, and has a cardiac history. His pain improved with nitro. The actual clinical significance of his elevated troponin is unclear given his renal status. Repeat troponin is pending, and he will likely need to be admitted for cardiac work up. He has few prior records here. Home doses of carvedilol and clonidine given - other home meds held for now. BP improved but is still high. Still no chest pain. now at bedside, nothing to add to the history the patient had provided. Troponin decreased some, but was still high. Discussed with Dr. Arnold and he will admit - requested that I also consult cardiology and I am waiting to speak with them as they are in the director of laboratory operations. Lab Data 10/14/23 10:01 10/14/23 10:01 Radiology Impressions Chest X-Ray 10/14/23 10:27 IMPRESSION: No acute chest abnormality. Laboratory Results WBC 14.21 10^3/uL (3.29-11.43) H 10/14/23 10:01 RBC 3.22 10^6/uL (3.85-5.65) L 10/14/23 10:01 Hgb 9.20 g/dL (11.27-16.99) L 10/14/23 10:01 Hct 30.0 % (37-53) L 10/14/23 10:01 MCV 93.2 fl (82-101) 10/14/23 10:01 MCH 28.6 pg (27-33) 10/14/23 10:01 MCHC 30.7 g/dL (30-55) 10/14/23 10:01 RDW 17.2 % (12.1-15.1) H 10/14/23 10:01 Plt Count 346 10^3/cmm (157-399) 10/14/23 10:01 MPV 9.8 fL (7.4-10.4) 10/14/23 10:01 Neut % (Auto) 82.5 % 10/14/23 10:01 Lymph % (Auto) 8.2 % 10/14/23 10:01 [place] % (Auto) 8.1 % 10/14/23 10:01 Eos % (Auto) 0.4 % 10/14/23 10:01 Baso % (Auto) 0.4 % 10/14/23 10:01 Neut # (Auto) 11.73 10^3/uL (1.8-7.7) H 10/14/23 10:01 Lymph # (Auto) 1.2 10^3/uL (0.8-4.8) 10/14/23 10:01 [place] # (Auto) 1.2 10^3/uL (0.2-0.9) H 10/14/23 10:01 Eos # (Auto) 0.1 10^3/uL (0.0-0.8) 10/14/23 10:01 Baso # (Auto) 0.1 10^3/uL (0.0-0.1) 10/14/23 10:01 Nucleated RBC % (auto) 0 % 10/14/23 10:01 Nucleated RBCs # 0.0 /100WBC 10/14/23 10:01 Sodium 138 mmol/L (136-145) 10/14/23 10:01 Potassium 3.5 mmol/L (3.5-5.1) 10/14/23 10:01 Chloride 90 mmol/L (98-107) L 10/14/23 10:01 Carbon Dioxide 31 mmol/L (22-29) H 10/14/23 10:01 Anion Gap 20.5 (5-19) H 10/14/23 10:01 BUN 75 mg/dL (6-20) H 10/14/23 10:01 Creatinine 7.5 mg/dL (0.7-1.2) H* 10/14/23 10:01 GFR Calculation 7.9 mL/min (90-130) L 10/14/23 10:01 Glucose 119 mg/dL (65-115) H 10/14/23 10:01 Calculated Osmolality 309 mOsm/kg (285-295) H 10/14/23 10:01 Calcium 8.9 mg/dL (8.5-10.5) 10/14/23 10:01 Magnesium 1.9 mg/dL (1.7-2.3) 10/14/23 10:01 Total Bilirubin 0.3 mg/dL (0.15-1.2) 10/14/23 10:01 AST 23 U/L (0-40) 10/14/23 10:01 ALT 13 U/L (0-41) 10/14/23 10:01 Alkaline Phosphatase 62 U/L (40-130) 10/14/23 10:01 Troponin T Baseline 309 ng/L (0-15) H* 10/14/23 10:01 Troponin T 120 Minute 286.3 ng/L (0-15) H 10/14/23 11:59 Delta Troponin T -22.7 ABS# (0-10) L 10/14/23 11:59 Total Protein 6.6 g/dL (6.6-8.7) 10/14/23 10:01 Albumin 2.8 g/dL (3.5-5.2) L 10/14/23 10:01 Globulin 3.8 g/dL (1.3-4.6) 10/14/23 10:01 Blood Type AB Positive 10/14/23 10:51 Rho(D) Type Rh positive 10/14/23 10:51 Antibody Screen Negative 10/14/23 10:51 XR interpretation done by ED provider, pending radiology final review Discharge Plan Discharge Patient Disposition: Admitted As Inpatient Admit Provider: Chris Arnold Clinical Impression: Chest pain, End-stage renal disease on peritoneal dialysis, Hypertensive urgency, Chronic hypertension, Medical non-compliance, Elevated troponin level Condition: Stable Coding Level of Care Code ED Principal Embedded Software Engineer for Monik Riley
[2023-10-14] MEDS: cloNIDine 0.1 mg Tablet 0.3 MG PO ×2 (11:50→20:30)
[2023-10-14] MEDS: carvedilol 25 mg Tablet PO ×2 (11:50→17:11)
--- NOTE | 2023-10-14 12:28 | ECG_ITS ---
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 Measurements Intervals [place] Rate: 86 P: 50 NM: 150 QRS: 44 QRSD: 93 T: 45 QT: 380 QTc: 456 Interpretive Statements SINUS RHYTHM POSSIBLE LEFT ATRIAL ENLARGEMENT [-0.1mV P-WAVE IN V1/V2] ANTEROSEPTAL MYOCARDIAL INFARCTION , PROBABLY OLD [40+ ms Q WAVE IN V1-V4] Compared to ECG 10/14/2023 10:16:22 Sinus tachycardia no longer present Myocardial infarct finding still present Electronically Signed On 10-14-2023 18:49:17 CDT by Julio Monaco M.D. [id number]
[2023-10-14 12:37] LABS: Troponin 5 2HR 286.3 ng/L (0-15); Troponin 5 2HR Delta -22.7 ABS# (0-10)
--- NOTE | 2023-10-14 14:30 | P.HP_ITS ---
Providers/Chief Complaint 2 Admitting Physician: Chris Arnold Chief Complaint: cp, n/v History of Present Illness 43-year-old gentleman with history of ESRD on PD daily, was not feeling well yesterday, missed his dialysis, total night could not sleep, which side sometimes happens, and this morning was having several episodes of vomiting, as well as developed sharp left-sided chest pain while at rest, without exacerbating or alleviating factors, not related to breathing, not changed by exertion or rest. Hospitalist was called to the scene ER he was found to have elevated troponin to 309, down to 286 at 2 hours. He is otherwise noted afebrile, but does have leukocytosis 14.1. The pain has abated at the moment. He does not have additional vomiting. His family reports that he had had an episode of peritonitis in the past, previously had some issues with PD catheter but that this has been addressed and that he has not had any further issues. No erythema or drainage around the catheter. Night before last when he did. On the also did not have any cloudy fluid or any other concerns. He is generally nonambulatory with muscle atrophy, previously ambulatory by using a walker, propping himself up on his arms, but has lost that ability after fracture of the left shoulder. After recent blood transfusion he also spontaneously developed a hematoma of the anterior lateral left mid lower leg, without any changes, it was assessed by an ultrasound. It has not been bothering him. No history of to be obtained from the family, as he would engage only briefly, otherwise laying with his head down, frequently falling asleep. Stating that he had not slept at all overnight. Review of Systems 2 Const: Reports: daytime sleepiness; Denies: fever(s), chills, body aches or malaise ENMT: Denies: throat pain Card: Reports: chest pain; Denies: edema, pre-syncope or dyspnea on exertion Resp: Denies: dyspnea, productive cough, change in phlegm color or hemoptysis GI: Reports: vomiting; Denies: abdominal pain, diarrhea, constipation, hematochezia or melena : Denies: flank pain, difficulty urinating, urinary frequency or hematuria Musc: Denies: back pain, joint swelling or joint redness Skin/Breast: Denies: rash or new lesions Neuro: Denies: headache(s) or dizziness Endo: Denies: polyuria or polydipsia Medications/Allergies Home Medications Medication Instructions Recorded Confirmed Last Taken Type buspirone 5 mg tablet 5 mg PO TID 10/14/23 10/14/23 10/13/23 History calcitriol 0.25 mcg capsule 0.25 mcg PO DAILY 10/14/23 10/14/23 10/13/23 History carvedilol 25 mg tablet 25 mg PO BID 10/14/23 10/14/23 10/13/23 History clonidine HCl 0.3 mg tablet 0.3 mg PO TID 10/14/23 10/14/23 10/13/23 History doxycycline monohydrate 100 mg 100 mg PO BID 10/14/23 10/14/23 10/13/23 History capsule furosemide 80 mg tablet 80 mg PO BID 10/14/23 10/14/23 10/14/23 History gabapentin 100 mg capsule 100 mg PO TID 10/14/23 10/14/23 10/13/23 History hydralazine 100 mg tablet 100 mg PO TID 10/14/23 10/14/23 10/13/23 History insulin aspart U-100 100 unit/mL 15 unit SUBCUT TID 10/14/23 10/14/23 10/13/23 History (3 mL) subcutaneous pen (Novolog FlexPen U-100 Insulin aspart) insulin glargine 100 unit/mL (3 10 unit SUBCUT QPM 10/14/23 10/14/23 Unknown History mL) subcutaneous pen (Lantus Solostar U-100 Insulin) lisinopril 40 mg tablet 40 mg PO DAILY 10/14/23 10/14/23 Unknown History megestrol 40 mg tablet 40 mg PO BID 10/14/23 10/14/23 10/13/23 History mirtazapine 15 mg tablet (Remeron) 7.5 mg PO QPM 10/14/23 10/14/23 10/13/23 History nitroglycerin 0.4 mg sublingual 0.4 mg sublingual Q5M PRN Chest 10/14/23 10/14/23 Unknown History tablet (Nitrostat) Pain ondansetron HCl 4 mg tablet 4 mg PO Q6H PRN Nausea And Vomiting 10/14/23 10/14/23 Unknown History pantoprazole 40 mg tablet,delayed 40 mg PO DAILY 10/14/23 10/14/23 10/13/23 History release ropinirole 0.5 mg tablet 0.5 mg PO BEDTIME 10/14/23 10/14/23 10/13/23 History sevelamer carbonate 800 mg tablet See Rx Instructions .Route .COMPLEX 10/14/23 10/14/23 10/13/23 History sodium bicarbonate 325 mg tablet 325 mg PO DAILY 10/14/23 10/14/23 10/13/23 History venlafaxine 75 mg capsule,extended 150 mg PO TID 10/14/23 10/14/23 10/13/23 History release 24 hr vit B,C-folic ac 800 mcg-zinc 12.5 1 tab PO DAILY 10/14/23 10/14/23 10/13/23 History mg-selen-D3 2,000 unit-vit E tablet (RenaPlex-D) Allergies Allergy/AdvReac Type Severity Reaction Status Date / Time No Known Allergies Allergy Verified 09/15/23 01:10 PFSH Acute 2 PFSH: Medical History (Updated 10/14/23 @ 14:56 by Chris Arnold MD) Restless leg syndrome Peritonitis CAD (coronary artery disease) Depression End-stage renal disease on peritoneal dialysis Anemia Surgical History (Updated 10/14/23 @ 14:42 by Chris Arnold MD) Hx of CABG Social History (Updated 10/14/23 @ 14:43 by Chris Arnold MD) Alcohol intake: never Substance/Drug Use: current Other substance/drug use details: Medical marijuana Vitals/I&O/Wt Last Vital Signs Temp 97.9 F 10/14/23 10:20 Pulse 84 10/14/23 14:00 Resp 17 10/14/23 14:00 BP 157/106 10/14/23 14:00 Pulse Ox 99 10/14/23 14:00 O2 Del Method Room Air 10/14/23 14:00 Weight last 48 hrs Weight 65.771 kg Physical Exam 2 Narrative: Accompanied by family Const: COMMON NORMALS: patient oriented x3 GENERAL APPEARANCE: cooperative and frail appearing HENMT: COMMON NORMALS: oropharynx normal Neck/C-Spine: COMMON NORMALS: no JVD Resp: COMMON NORMALS: normal respiratory effort and clear to auscultation bilaterally AUSCULTATION: clear to auscultation bilaterally Cardio: COMMON NORMALS: no JVD, regular rhythm, S1 normal heart sound present, S2 normal heart sound present and No murmurs present (Cardio) RHYTHM: regular rhythm HEART SOUNDS: S1 normal heart sound present and S2 normal heart sound present GI: COMMON NORMALS: Normal to inspection, nondistended, normoactive bowel sounds present, Soft to palpation and non-tender PALPATION: Yes Soft to palpation Extremity: COMMON NORMALS: no joint enlargement and no pedal edema Neuro: COMMON NORMALS: patient oriented x3 and moves all extremities S ENSORIUM/ORIENTATION: Yes alert Skin: COMMON NORMALS: no rashes or lesions noted OTHER: Tattoos. Left anterior lateral mid lower leg elongated raised area of about a 4 x 10 cm of the prior hematoma, without erythema, without bruising. No open wound, no drainage. Data 10/14/23 10:01 10/14/23 10:01 A&P Assessment and plan (1) Chest pain: Left-sided atypical chest pain, not provoked by activity, unchanged by rest, deep breathing, movement. Does have troponin elevation up to 300, down to 286 at 2 hours. Significant risk factors of coronary disease. Mostly background information obtained from his family due to him being tired after not sleeping overnight. Had a CABG in 2018. Reportedly 2 years ago had a stress test with consideration for renal transplantation. Reviewed vitals, CBC, CMP, troponin series, EKG, ER note, discussed with ER provider. EKG on my interpretation Q waves in V1 and V2, some flattening of T waves in 3, pending official read. Obtaining TTE. Cardiology consultation is obtained as well. Monitor on telemetry with risk of arrhythmia. Complete troponin series. Will give him aspirin, monitor for risk of bleeding with left calf hematoma. Hold off anticoagulation for now pending cardiology assessment. Currently he is free of pain. Nitroglycerin as needed. Continue beta-courtney. No clear benefit of statin with ESRD on dialysis. Hold megestrol. Qualifiers: Chest pain type: unspecified Qualified Code(s): R07.9 - Chest pain, unspecified (2) Elevated troponin level: As above. Assess for possible NSTEMI. (3) Vomiting: Several episodes of vomiting this morning. Unclear if may be related to cardiac event as above, otherwise he does have history of peritonitis, although he did not do dialysis last night as he is not feeling well, did do it with diet before. He does not have abdominal pain. Dialysate was clear. He additionally does have leukocytosis 14.2. Hematoma of the leg. Will assess blood culture. (4) End-stage renal disease on peritoneal dialysis: He usually does 4 exchanges overnight. Missed his PD last night. Requesting nephrology consultation. (5) Chronic hypertension: Blood pressure elevated in ER with currently uncontrolled hypertension 157/106. Will resume his home medications including carvedilol, clonidine, hydralazine Hold megestrol. (6) Hematoma of leg: Hematoma of the left lower leg developed seemingly spontaneously after recent transfusion on anterolateral mid left lower leg, oblong, about 4 x 10 cm without erythema, bruising or drainage around it. Will reassess with ultrasound. Qualifiers: Encounter type: initial encounter Laterality: left Qualified Code(s): S80.12XA - Contusion of left lower leg, initial encounter (7) Depression: Family state it is imperative for him not to miss antidepressant doses due to easily decompensating depression. Continue venlafaxine, mirtazapine. Buspirone. Plan He has severe restless leg syndrome: Continue ropinirole Goals of care discussion: Full code in case of cardiopulmonary arrest Attestations 2 Medical Necessity Statement*: Placed in observation for additional assessment and management of chest pain, troponin elevation, assess for possible NSTEMI, and a gentleman with underlying CAD, history of CABG, as well as multiple episodes of vomiting in a gentleman with prior history of peritonitis on peritoneal dialysis with ESRD, with leukocytosis, malaise. Diagnoses Chest pain R07.9 Chest pain type: unspecified Elevated troponin level R79.89 Vomiting R11.10 End-stage renal disease on peritoneal dialysis N18.6; Z99.2 Chronic hypertension I10 Hematoma of leg S80.12XA Encounter type: initial encounter Laterality: left Depression F32.A
[2023-10-14] MEDS: gabapentin 100 mg Capsule PO ×2 (15:55→21:54)
[2023-10-14] MEDS: aspirin 325 mg Tablet PO (15:55)
[2023-10-14] MEDS: venlafaxine ER (24HR) 75 mg Capsule 150 MG PO ×2 (15:55→21:54)
[2023-10-14 16:26] LABS: Cyto Order Verification No Order
--- NOTE | 2023-10-14 16:28 | ECG_ITS ---
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 Measurements Intervals [place] Rate: 82 P: 54 WV: 154 QRS: 30 QRSD: 90 T: 46 QT: 382 QTc: 448 Interpretive Statements SINUS RHYTHM POSSIBLE LEFT ATRIAL ENLARGEMENT [-0.1mV P-WAVE IN V1/V2] ANTEROSEPTAL MYOCARDIAL INFARCTION , PROBABLY OLD [40+ ms Q WAVE IN V1-V4] Compared to ECG 10/14/2023 12:38:09 No significant changes Electronically Signed On 10-14-2023 18:47:34 CDT by Julio Monaco M.D. [id number]
--- NOTE | 2023-10-14 16:29 | PM.CONSULT ---
Providers/Reason For Consult Consulting Physician/Specialty*: Julio Monaco MD/ Cardiology Reason for Consult*: Chest pain/ troponin elevation Requesting Physician: Dr Arnold Attending Physician: Chris Arnold History of Present Illness History of Present Illness Jose Guadalupe Claudio is a 43 year old male with past medical history of coronary artery disease with CABG performed several years ago who presented to hospital after missing peritoneal dialysis session and having chest discomfort this morning. Patient had prior stroke and is not very mobile. Pain was left-sided and was nonexertional. Initial troponin was 309 that trended down subsequently. EKG shows prior anteroseptal infarct with no significant ST-T wave changes. Patient is chest pain-free now after receiving 2 nitros His WBC count is elevated. Review of Systems Const: Reports: daytime sleepiness; Denies: fever(s), chills, body aches or malaise ENMT: Denies: throat pain Card: Reports: chest pain; Denies: edema, pre-syncope or dyspnea on exertion Resp: Denies: dyspnea, productive cough, change in phlegm color or hemoptysis GI: Reports: vomiting; Denies: abdominal pain, diarrhea, constipation, hematochezia or melena : Denies: flank pain, difficulty urinating, urinary frequency or hematuria Musc: Denies: back pain, joint swelling or joint redness Skin/Breast: Denies: rash or new lesions Neuro: Denies: headache(s) or dizziness Endo: Denies: polyuria or polydipsia Medications/Allergies Home Medications Medication Instructions Recorded Confirmed Last Taken Type buspirone 5 mg tablet 5 mg PO TID 10/14/23 10/14/23 10/13/23 History calcitriol 0.25 mcg capsule 0.25 mcg PO DAILY 10/14/23 10/14/23 10/13/23 History carvedilol 25 mg tablet 25 mg PO BID 10/14/23 10/14/23 10/13/23 History clonidine HCl 0.3 mg tablet 0.3 mg PO TID 10/14/23 10/14/23 10/13/23 History doxycycline monohydrate 100 mg 100 mg PO BID 10/14/23 10/14/23 10/13/23 History capsule furosemide 80 mg tablet 80 mg PO BID 10/14/23 10/14/23 10/14/23 History gabapentin 100 mg capsule 100 mg PO TID 10/14/23 10/14/23 10/13/23 History hydralazine 100 mg tablet 100 mg PO TID 10/14/23 10/14/23 10/13/23 History insulin aspart U-100 100 unit/mL 15 unit SUBCUT TID 10/14/23 10/14/23 10/13/23 History (3 mL) subcutaneous pen (Novolog FlexPen U-100 Insulin aspart) insulin glargine 100 unit/mL (3 10 unit SUBCUT QPM 10/14/23 10/14/23 Unknown History mL) subcutaneous pen (Lantus Solostar U-100 Insulin) lisinopril 40 mg tablet 40 mg PO DAILY 10/14/23 10/14/23 Unknown History megestrol 40 mg tablet 40 mg PO BID 10/14/23 10/14/23 10/13/23 History mirtazapine 15 mg tablet (Remeron) 7.5 mg PO QPM 10/14/23 10/14/23 10/13/23 History nitroglycerin 0.4 mg sublingual 0.4 mg sublingual Q5M PRN Chest 10/14/23 10/14/23 Unknown History tablet (Nitrostat) Pain ondansetron HCl 4 mg tablet 4 mg PO Q6H PRN Nausea And Vomiting 10/14/23 10/14/23 Unknown History pantoprazole 40 mg tablet,delayed 40 mg PO DAILY 10/14/23 10/14/23 10/13/23 History release ropinirole 0.5 mg tablet 0.5 mg PO BEDTIME 10/14/23 10/14/23 10/13/23 History sevelamer carbonate 800 mg tablet See Rx Instructions .Route .COMPLEX 10/14/23 10/14/23 10/13/23 History sodium bicarbonate 325 mg tablet 325 mg PO DAILY 10/14/23 10/14/23 10/13/23 History venlafaxine 75 mg capsule,extended 150 mg PO TID 10/14/23 10/14/23 10/13/23 History release 24 hr vit B,C-folic ac 800 mcg-zinc 12.5 1 tab PO DAILY 10/14/23 10/14/23 10/13/23 History mg-selen-D3 2,000 unit-vit E tablet (RenaPlex-D) Allergies Allergy/AdvReac Type Severity Reaction Status Date / Time No Known Allergies Allergy Verified 09/15/23 01:10 Current Medications Generic Name Dose Route Start Last Admin Trade Name Ever PRN Reason Stop Dose Admin Aspirin 325 mg 10/14/23 15:08 10/14/23 15:55 Aspirin 325 Mg Tablet PO 325 mg DAILY JAQUELINE Administration Gabapentin 100 mg 10/14/23 15:08 10/14/23 15:55 Gabapentin 100 Mg Capsule PO 100 mg TID JAQUELINE Administration Venlafaxine HCl 150 mg 10/14/23 15:00 10/14/23 15:55 Venlafaxine Er (24hr) 75 Mg Capsule PO 150 mg TID JAQUELINE Administration PFSH Acute PFSH: Medical History Restless leg syndrome Peritonitis CAD (coronary artery disease) Depression End-stage renal disease on peritoneal dialysis Anemia Surgical History Hx of CABG Social History Alcohol intake: never Substance/Drug Use: current Other substance/drug use details: Medical marijuana Vitals/I&O/Wt Last Vital Signs Temp 97.9 F 10/14/23 14:54 Pulse 85 10/14/23 14:54 Resp 18 10/14/23 14:54 BP 175/113 10/14/23 14:54 Pulse Ox 94 10/14/23 14:54 O2 Del Method Room Air 10/14/23 15:09 10/14/23 10/14/23 10/14/23 06:59 14:59 22:59 Output Total 65 / 65 Balance -65 / -65 Weight last 48 hrs Weight 145 lb Weight 145 lb Physical Exam Narrative: GENERAL: Patient is alert, awake and oriented x3. [] NECK: No jugular vein distension. [] HEENT: No cyanosis. No icterus. No pallor. [] HEART: Regular S1 and S2. No murmur, rub or gallop. [] LUNGS: Clear to auscultate bilaterally. [] CENTRAL NERVOUS SYSTEM: Grossly nonfocal. [] EXTREMITIES: Left lower extremity has a hematoma. Data 10/15/23 05:44 10/15/23 05:44 Micro: Microbiology 10/14/23 14:28 Blood Culture - Preliminary Blood SPECIMEN COLLECTED 10/14/23 14:25 Blood Culture - Preliminary Blood SPECIMEN COLLECTED A&P Assessment and plan (1) Chest pain: Qualifiers: Chest pain type: unspecified Qualified Code(s): R07.9 - Chest pain, unspecified (2) Chronic hypertension: (3) Elevated troponin level: (4) End-stage renal disease on peritoneal dialysis: (5) Hematoma of leg: Qualifiers: Encounter type: initial encounter Laterality: left Qualified Code(s): S80.12XA - Contusion of left lower leg, initial encounter Plan Patient's chest pain symptoms have both typical and atypical features. Troponin were elevated however he has end-stage renal disease and troponins have not trended up. Pain was relieved with 2 sublingual nitros. Given his history of prior CAD and CABG, will recommend stress test. Patient wants to do at as outpatient. Observe overnight and if no chest pain and echo shows normal LV systolic function, can proceed with outpatient follow up and stress test Has left leg hematoma and anemia. Monitor H and H Thank you for involving us with care of this patient. We will continue to follow. Please call with questions. Consult Attestations Medical Necessity Statement: Care expected to cross 2 midnights. Coding Level of Care Code Acute Code for [facility] Fwd Diagnoses Chest pain R07.9 Chest pain type: unspecified Chronic hypertension I10 Elevated troponin level R79.89 End-stage renal disease on peritoneal dialysis N18.6; Z99.2 Hematoma of leg S80.12XA Encounter type: initial encounter Laterality: left
[2023-10-14 16:42] LABS: Mononuclear #, Pertinoneal Fl 0.097 10^3/uL; Polynuclear # Cells, Perit 0.005 10^3/uL; RBC Pertioneal Fluid 0 10^3/uL; WBC Peritoneal Fluid 102 /uL
[2023-10-14 16:42] LABS: Troponin 5 6HR 277.1 ng/L (0-15); Troponin 5 6HR Delta -31.9 ng/L (0-12)
[2023-10-14 16:55] LABS: Glucose Point of Care 150 mg/dL (70-110)
[2023-10-14 16:57] LABS: Appearance, Peritoneal Fluid Clear (Clear); Color, Peritoneal Fluid Colorless (Pale Yellow)
[2023-10-14] MEDS: sevelamer 800 mg Tablet 1600 MG PO (17:11)
[2023-10-14] MEDS: doxycycline 100 mg Tablet PO (17:11)
[2023-10-14] MEDS: mirtazapine 15 mg Tablet 7.5 MG PO (17:12)
[2023-10-14] MEDS: insulin glargine 100 units/1 mL 5 UNIT SUBCUT (17:12)
--- NOTE | 2023-10-14 19:49 | P.CONIM_ITS ---
Providers/Reason For Consult 2 Consulting Physician/Specialty*: [facility]/Nephrology Reason for Consult*: ESRD Attending Physician: Chris Arnold History of Present Illness History of Present Illness Jose Guadalupe Claudio is a 43 year old male 43-year-old male with past medical history of hypertension, diabetes, end-stage renal disease on peritoneal dialysis, coronary artery disease presented to the emergency department due to vomiting chest pain. Patient was also noted to have elevated troponin. Patient unable to provide much history to me at this time it is unclear what peritoneal prescription he has. Lab data significant for elevated WBC count, anemia with a hemoglobin of 9.2. Review of Systems 2 Narrative: other ROS Negative Medications/Allergies Home Medications Medication Instructions Recorded Confirmed Last Taken Type buspirone 5 mg tablet 5 mg PO TID 10/14/23 10/14/23 10/13/23 History calcitriol 0.25 mcg capsule 0.25 mcg PO DAILY 10/14/23 10/14/23 10/13/23 History carvedilol 25 mg tablet 25 mg PO BID 10/14/23 10/14/23 10/13/23 History clonidine HCl 0.3 mg tablet 0.3 mg PO TID 10/14/23 10/14/23 10/13/23 History doxycycline monohydrate 100 mg 100 mg PO BID 10/14/23 10/14/23 10/13/23 History capsule furosemide 80 mg tablet 80 mg PO BID 10/14/23 10/14/23 10/14/23 History gabapentin 100 mg capsule 100 mg PO TID 10/14/23 10/14/23 10/13/23 History hydralazine 100 mg tablet 100 mg PO TID 10/14/23 10/14/23 10/13/23 History insulin aspart U-100 100 unit/mL 15 unit SUBCUT TID 10/14/23 10/14/23 10/13/23 History (3 mL) subcutaneous pen (Novolog FlexPen U-100 Insulin aspart) insulin glargine 100 unit/mL (3 10 unit SUBCUT QPM 10/14/23 10/14/23 Unknown History mL) subcutaneous pen (Lantus Solostar U-100 Insulin) lisinopril 40 mg tablet 40 mg PO DAILY 10/14/23 10/14/23 Unknown History megestrol 40 mg tablet 40 mg PO BID 10/14/23 10/14/23 10/13/23 History mirtazapine 15 mg tablet (Remeron) 7.5 mg PO QPM 10/14/23 10/14/23 10/13/23 History nitroglycerin 0.4 mg sublingual 0.4 mg sublingual Q5M PRN Chest 10/14/23 10/14/23 Unknown History tablet (Nitrostat) Pain ondansetron HCl 4 mg tablet 4 mg PO Q6H PRN Nausea And Vomiting 10/14/23 10/14/23 Unknown History pantoprazole 40 mg tablet,delayed 40 mg PO DAILY 10/14/23 10/14/23 10/13/23 History release ropinirole 0.5 mg tablet 0.5 mg PO BEDTIME 10/14/23 10/14/23 10/13/23 History sevelamer carbonate 800 mg tablet See Rx Instructions .Route .COMPLEX 10/14/23 10/14/23 10/13/23 History sodium bicarbonate 325 mg tablet 325 mg PO DAILY 10/14/23 10/14/23 10/13/23 History venlafaxine 75 mg capsule,extended 150 mg PO TID 10/14/23 10/14/23 10/13/23 History release 24 hr vit B,C-folic ac 800 mcg-zinc 12.5 1 tab PO DAILY 10/14/23 10/14/23 10/13/23 History mg-selen-D3 2,000 unit-vit E tablet (RenaPlex-D) Allergies Allergy/AdvReac Type Severity Reaction Status Date / Time No Known Allergies Allergy Verified 09/15/23 01:10 Current Medications Generic Name Dose Route Start Last Admin Trade Name Ever PRN Reason Stop Dose Admin Aspirin 325 mg 10/14/23 15:08 10/14/23 15:55 Aspirin 325 Mg Tablet PO 325 mg DAILY JAQUELINE Administration Carvedilol 25 mg 10/14/23 18:00 10/14/23 17:11 Carvedilol 25 Mg Tablet PO 25 mg BID JAQUELINE Administration Doxycycline Monohydrate 100 mg 10/14/23 18:00 10/14/23 17:11 Doxycycline 100 Mg Tablet PO 100 mg BID JAQUELINE Administration Gabapentin 100 mg 10/14/23 15:08 10/14/23 15:55 Gabapentin 100 Mg Capsule PO 100 mg TID JAQUELINE Administration Insulin Glargine 5 unit 10/14/23 18:00 10/14/23 17:12 Insulin Glargine 100 Units/1 Ml SUBCUT 5 unit QPM JAQUELINE Administration Mirtazapine 7.5 mg 10/14/23 18:00 10/14/23 17:12 Mirtazapine 15 Mg Tablet PO 7.5 mg QPM JAQUELINE Administration Sevelamer Carbonate 1,600 mg 10/14/23 18:00 10/14/23 17:11 Sevelamer 800 Mg Tablet PO 1,600 mg BIDWM JAQUELINE Administration Venlafaxine HCl 150 mg 10/14/23 15:00 10/14/23 15:55 Venlafaxine Er (24hr) 75 Mg Capsule PO 150 mg TID JAQUELINE Administration PFSH Acute 2 PFSH: Medical History (Updated 10/14/23 @ 14:56 by Chris Arnold MD) Restless leg syndrome Peritonitis CAD (coronary artery disease) Depression End-stage renal disease on peritoneal dialysis Anemia Surgical History (Updated 10/14/23 @ 14:42 by Chris Arnold MD) Hx of CABG Social History (Updated 10/14/23 @ 14:43 by Chris Arnold MD) Alcohol intake: never Substance/Drug Use: current Other substance/drug use details: Medical marijuana Vitals/I&O/Wt Last Vital Signs Temp 98.6 F 10/14/23 16:00 Pulse 88 10/14/23 16:00 Resp 16 10/14/23 16:00 BP 184/96 10/14/23 16:00 Pulse Ox 95 10/14/23 16:00 O2 Del Method Room Air 10/14/23 16:00 10/14/23 10/14/23 10/14/23 06:59 14:59 22:59 Intake Total 240 / 240 Output Total 65 / 65 Balance 175 / 175 Weight last 48 hrs Weight 65.771 kg Weight 65.771 kg Physical Exam 2 Narrative: sleeping no distress S1S2 RRR per report Lungs clear per report no edema Data 10/14/23 10:01 10/14/23 10:01 Micro: Microbiology 10/14/23 14:28 Blood Culture - Preliminary Blood SPECIMEN COLLECTED 10/14/23 14:25 Blood Culture - Preliminary Blood SPECIMEN COLLECTED A&P Assessment and plan (1) End-stage renal disease on peritoneal dialysis: Plan 1. End-stage renal disease: On peritoneal dialysis, will will order 1 manual exchange today with 2.5% dextrose solution x 8 hours. 2. Chest pain, with elevated troponin, cardiology consulted 3. Hypertension: Blood pressure elevated, resume home meds 4. Anemia, hemoglobin 9.2, will order GIANCARLO 5. History of diabetes Patient evaluated using audiovisual cart. Time spent 40 minutes Consult Attestations 2 Medical Necessity Statement: per demetrio Coding Level of Care Code Acute Code for [facility] Fwd Diagnoses End-stage renal disease on peritoneal dialysis N18.6; Z99.2
[2023-10-14] MEDS: BuSPIRONE 10 mg Tablet 5 MG PO (20:29)
[2023-10-14] MEDS: hyDRALAzine 50 mg Tablet 100 MG PO (20:30)
[2023-10-14] MEDS: ropinirole 0.25 mg Tablet 0.5 MG PO (20:30)
[2023-10-14 21:05] LABS: Glucose Point of Care 138 mg/dL (70-110)
[2023-10-15] VITALS (7 sets, daily range): BP systolic 169–213; BP diastolic 91–98; PULSE 82–89; RESP 17–18; TEMP 36.8–37.2; O2SAT 91–97
[2023-10-15] MEDS: acetaminophen 325 mg Tablet 650 MG PO (04:23)
[2023-10-15 05:58] LABS: Basophils # 0.1 10^3/uL (0.0-0.1); Basophils % 0.9 %; Eosinophils # 0.2 10^3/uL (0.0-0.8); Eosinophils % 1.9 %; Hematocrit 24.8 % (37-53); Lymphocytes # 1.5 10^3/uL (0.8-4.8); Lymphocytes % 14.2 %; Mean Corpuscular HGB Conc 30.2 g/dL (30-55); Mean Corpuscular Hemoglobin 28.1 pg (27-33); Mean Corpuscular Volume 92.9 fl (82-101); Mean Platelet Volume 9.7 fL (7.4-10.4); Monocytes # 0.8 10^3/uL (0.2-0.9); Monocytes % 7.7 %; Neutrophils # 7.92 10^3/uL (1.8-7.7); Neutrophils % 74.9 %; Nucleated Red Blood Cells % 0 %; Platelet Count 264 10^3/cmm (157-399); Red Blood Count 2.67 10^6/uL (3.85-5.65); White Blood Count 10.56 10^3/uL (3.29-11.43)
--- NOTE | 2023-10-15 06:00 | USCV_ITS ---
Jose Guadalupe Claudio Age: 43 Gender: M : 1980 Exam Date: 10/15/2023 08:47 Ordering Phys: Chris Arnold MD Technologist: ELISABETH [place] [facility] [place] CP BP: 184 / 96 HR: 90 Rhythm: Sinus Technical Quality: Adequate MEASUREMENTS (Male / Female) Normal Values 2D ECHO LV Diastolic Diameter PLAX 4.9 cm 4.2 - 5.9 / 3.9 - 5.3 cm IVS Diastolic Thickness 1.1 cm 0.6 - 1.0 / 0.6 - 0.9 cm IVS Systolic Thickness 1.3 cm LVPW Diastolic Thickness 1.8 cm 0.6 - 1.0 / 0.6 - 0.9 cm LVPW Systolic Thickness 1.9 cm LVOT Diameter 2.0 cm LV Ejection Fraction 2D Teich 60.1 % LV Ejection Fraction MOD 2C 59.5 % LV Ejection Fraction 2C AL 58.4 % LA Diameter 4.3 cm RA Systolic Volume 4C AL 39.1 ml RA Systolic Volume 4C MOD 39.3 ml LA Sys Volume AL 74.3 cm cubed LA Sys Volume Index AL 40.9 cm cubed/m squared Aorta at Sinotubular Diameter 2.4 cm IVC Diameter 1.8 cm M-MODE LA Ao Ratio MM 1.4 AV Cusp Separation MM 1.8 cm DOPPLER AV Peak Velocity 160.0 cm/s LVOT Peak Velocity 118.0 cm/s AV Area Cont Eq vti 2.3 cm squared AV Area Cont Eq pk 2.3 cm squared MV Peak Velocity 159.0 cm/s MV Area PHT 6.8 cm squared Mitral E to A Ratio 1.1 TR Peak Velocity 398.0 cm/s TR Peak Gradient 63.4 mmHg TR Mean Velocity 353.0 cm/s TR Mean Gradient 50.6 mmHg TR Velocity Time Integral 96.4 cm PV Peak Velocity 117.3 cm/s RV Ejection Time 0.3 s FINDINGS Left Ventricle Left ventricle is normal size. LV systolic function is normal with EF 55 to 60%. No regional wall motion abnormalities are seen. Right Ventricle Normal in size and function Right Atrium Normal in size Left Atrium Dilated Mitral Valve Structurally normal mitral valve. Mild mitral regurgitation. Aortic Valve Aortic valve is thickened. No significant stenosis or regurgitation. Tricuspid Valve Insufficient TR jet to calculate RVSP Pulmonic Valve Moderate pulmonic regurgitation. Pericardium Normal Aorta Normal in size IVC Appears to be normal CONCLUSIONS LV systolic function is normal with EF of 55-60% Left atrial dilation Mild mitral regurgitation Moderate pulmonic regurgitation. No comparison studies are available. Julio Monaco MD (Electronically Signed) Final Date: 15 October 2023 11:15 S
[2023-10-15 06:24] LABS: Alanine Aminotransferase 9 U/L (0-41); Albumin Level 2.4 g/dL (3.5-5.2); Alkaline Phosphatase 50 U/L (40-130); Anion Gap 18.2 (5-19); Aspartate Amino Transferase 15 U/L (0-40); Calcium 8.3 mg/dL (8.5-10.5); Carbon Dioxide 30 mmol/L (22-29); Chloride 95 mmol/L (98-107); Creatinine Clr Calc Pharmacy 12.0108; Globulin 3.1 g/dL (1.3-4.6); Glomerular Filtration Rate 7.2 mL/min (90-130); Glucose 66 mg/dL (65-115); Osmolality Calculated 311 mOsm/kg (285-295); Potassium 4.2 mmol/L (3.5-5.1); Sodium 139 mmol/L (136-145); Total Bilirubin 0.2 mg/dL (0.15-1.2); Total Protein 5.5 g/dL (6.6-8.7)
[2023-10-15 06:32] LABS: Blood Urea Nitrogen 82 mg/dL (6-20)
[2023-10-15] MEDS: calcitriol 0.25 mcg Capsule PO (08:11)
[2023-10-15] MEDS: nystatin 100,000 unit/mL UDC 5 mL 200000 UNIT PO ×2 (08:11→14:19)
[2023-10-15] MEDS: pantoprazole DR 40 mg Tablet PO (08:12)
[2023-10-15] MEDS: sevelamer 800 mg Tablet 1600 MG PO (08:12)
[2023-10-15] MEDS: cloNIDine 0.1 mg Tablet 0.3 MG PO ×2 (08:12→14:15)
[2023-10-15] MEDS: hyDRALAzine 50 mg Tablet 100 MG PO ×2 (08:12→14:17)
[2023-10-15] MEDS: sodium bicarbonate 650 mg Tablet 325 MG PO (08:13)
[2023-10-15] MEDS: aspirin 325 mg Tablet PO (08:13)
[2023-10-15] MEDS: BuSPIRONE 10 mg Tablet 5 MG PO ×2 (08:13→14:17)
[2023-10-15] MEDS: venlafaxine ER (24HR) 75 mg Capsule 150 MG PO ×2 (08:13→14:18)
[2023-10-15] MEDS: doxycycline 100 mg Tablet PO (08:13)
[2023-10-15] MEDS: carvedilol 25 mg Tablet PO (08:13)
[2023-10-15] MEDS: gabapentin 100 mg Capsule PO ×2 (08:13→14:16)
--- NOTE | 2023-10-15 10:04 | P.PN_ITS ---
Subjective 2 Subjective: didnt get PD LAST NIGHT pd FLUID NOT AVAILABLE Medications: Reviewed: Yes Vitals/I&O/Wt Last Vital Signs Temp 98.4 F 10/15/23 07:53 Pulse 89 10/15/23 07:53 Resp 18 10/15/23 07:53 BP 213/98 10/15/23 08:12 Pulse Ox 92 10/15/23 07:53 O2 Del Method Room Air 10/15/23 07:53 10/14/23 10/15/23 10/15/23 22:59 06:59 14:59 Intake Total 240 / 240 Output Total 65 / 65 Balance 175 / 175 Weight last 48 hrs Weight 68.266 kg Weight 65.771 kg Weight 65.771 kg Physical Exam 2 Narrative: sleeping no distress S1S2 RRR per report Lungs clear per report no edema Data 10/15/23 05:44 10/15/23 05:44 Micro: Microbiology 10/14/23 14:28 Blood Culture - Preliminary Blood SPECIMEN COLLECTED 10/14/23 14:25 Blood Culture - Preliminary Blood SPECIMEN COLLECTED A&P Assessment and plan (1) End-stage renal disease on peritoneal dialysis: Plan 1. End-stage renal disease: On peritoneal dialysis, didnt get PD last night - as PD fluid not available place on 2.5 % soln - q 6 hour exchanges 2. Chest pain, with elevated troponin, cardiology consulted 3. Hypertension: Blood pressure elevated, resume home meds 4. Anemia, hemoglobin 7.5, will order GIANCARLO 5. History of diabetes Patient evaluated using audiovisual cart. Time spent 40 minutes Attestations 2 Medical Necessity Statement*: per demetrio Coding Level of Care Code Acute Code for Chg Fwd Diagnoses End-stage renal disease on peritoneal dialysis N18.6; Z99.2
--- NOTE | 2023-10-15 10:06 | P.PN_ITS ---
Subjective 2 Subjective: Patient is doing well. no chest pain Vitals/I&O/Wt Last Vital Signs Temp 98.4 F 10/15/23 07:53 Pulse 89 10/15/23 07:53 Resp 18 10/15/23 07:53 BP 213/98 10/15/23 08:12 Pulse Ox 92 10/15/23 07:53 O2 Del Method Room Air 10/15/23 07:53 10/14/23 10/15/23 10/15/23 22:59 06:59 14:59 Intake Total 240 / 240 Output Total 65 / 65 Balance 175 / 175 Weight last 48 hrs Weight 150 lb 8 oz Weight 145 lb Weight 145 lb Physical Exam 2 Narrative: GENERAL: Patient is alert, awake and oriented x3. [] NECK: No jugular vein distension. [] HEENT: No cyanosis. No icterus. No pallor. [] HEART: Regular S1 and S2. No murmur, rub or gallop. [] LUNGS: Clear to auscultate bilaterally. [] CENTRAL NERVOUS SYSTEM: Grossly nonfocal. [] EXTREMITIES: Left lower extremity has a hematoma. Data 10/15/23 05:44 10/15/23 05:44 Micro: Microbiology 10/14/23 14:28 Blood Culture - Preliminary Blood SPECIMEN COLLECTED 10/14/23 14:25 Blood Culture - Preliminary Blood SPECIMEN COLLECTED A&P Assessment and plan (1) Chest pain: Qualifiers: Chest pain type: unspecified Qualified Code(s): R07.9 - Chest pain, unspecified (2) Elevated troponin level: (3) Chronic hypertension: (4) End-stage renal disease on peritoneal dialysis: (5) Hematoma of leg: Qualifiers: Encounter type: initial encounter Laterality: left Qualified Code(s): S80.12XA - Contusion of left lower leg, initial encounter Plan Patient has stated chest pain-free. Echo shows normal LV systolic function. Can obtain outpatient stress test. Has left leg hematoma and anemia. Thank you for involving us with care of this patient. Please call with questions. Attestations 2 Medical Necessity Statement*: Care expected to cross 2 midnights. Coding Level of Care Code Acute Code for [facility] Fwd Diagnoses Chest pain R07.9 Chest pain type: unspecified Elevated troponin level R79.89 Chronic hypertension I10 End-stage renal disease on peritoneal dialysis N18.6; Z99.2 Hematoma of leg S80.12XA Encounter type: initial encounter Laterality: left
--- NOTE | 2023-10-15 10:19 | P.PN_ITS ---
Subjective 2 Subjective: didnt get PD last night Medications: Reviewed: Yes Vitals/I&O/Wt Last Vital Signs Temp 98.4 F 10/15/23 07:53 Pulse 89 10/15/23 07:53 Resp 18 10/15/23 07:53 BP 213/98 10/15/23 08:12 Pulse Ox 92 10/15/23 07:53 O2 Del Method Room Air 10/15/23 07:53 10/14/23 10/15/23 10/15/23 22:59 06:59 14:59 Intake Total 240 / 240 480 / 480 Output Total 65 / 65 Balance 175 / 175 479 / 479 Weight last 48 hrs Weight 68.266 kg Weight 65.771 kg Weight 65.771 kg Physical Exam 2 Narrative: sleeping no distress S1S2 RRR per report Lungs clear per report no edema Data 10/15/23 05:44 10/15/23 05:44 Micro: Microbiology 10/14/23 14:28 Blood Culture - Preliminary Blood SPECIMEN COLLECTED 10/14/23 14:25 Blood Culture - Preliminary Blood SPECIMEN COLLECTED A&P Assessment and plan (1) End-stage renal disease on peritoneal dialysis: Plan 1. End-stage renal disease: On peritoneal dialysis, didnt get PD last night - as PD fluid not available place on 2.5 % soln - q 6 hour exchanges 2. Chest pain, with elevated troponin, cardiology consulted 3. Hypertension: Blood pressure elevated, resume home meds 4. Anemia, hemoglobin 7.5, will order GIANCARLO 5. History of diabetes Patient evaluated using audiovisual cart. Time spent 40 minutes Attestations 2 Medical Necessity Statement*: per demetrio Coding Level of Care Code Acute Code for Chg Fwd Diagnoses End-stage renal disease on peritoneal dialysis N18.6; Z99.2
[2023-10-15] MEDS: Dianeal low Ca w/2.5% dex 2,000 mL Bag 2000 ML INTRAPERIT (10:40)
--- NOTE | 2023-10-15 11:55 | P.DS_ITS ---
Discharge Providers Date of Admission: 10/14/23 13:54 Date of Discharge: October 15, 2023 Attending Provider at Admission: Chris Arnold Attending Provider at Discharge: Chris Arnold Diagnoses at Discharge Discharge Diagnosis (1) End-stage renal disease on peritoneal dialysis: Status: Acute Reason for Visit Reason for Visit: cp, n/v Brief History: 43-year-old gentleman with history of ES RD on PD daily, was not feeling well yesterday, missed his dialysis, total night could not sleep, which side sometimes happens, and this morning was having several episodes of vomiting, as well as developed sharp left-sided chest pain while at rest, without exacerbating or alleviating factors, not related to breathing, not changed by exertion or rest. Hospitalist was called to the scene ER he was found to have elevated troponin to 309, down to 286 at 2 hours. He is otherwise noted afebrile, but does have leukocytosis 14.1. The pain has abated at the moment. He does not have additional vomiting. His family reports that he had had an episode of peritonitis in the past, previously had some issues with PD catheter but that this has been addressed and that he has not had any further issues. No erythema or drainage around the catheter. Night before last when he did. On the also did not have any cloudy fluid or any other concerns. He is generally nonambulatory with muscle atrophy, previously ambulatory by using a walker, propping himself up on his arms, but has lost that ability after fracture of the left shoulder. After recent blood transfusion he also spontaneously developed a hematoma of the anterior lateral left mid lower leg, without any changes, it was assessed by an ultrasound. It has not been bothering him. No history of to be obtained from the family, as he would engage only briefly, otherwise laying with his head down, frequently falling asleep. Stating that he had not slept at all overnight. Hospital Course Hospital Course Today he is feeling much better. No chest pain or pressure. No nausea or vo miting. He ate breakfast without any issues. She is currently undergoing peritoneal dialysis session. He was assessed by cardiology, echocardiogram was obtained which showed normal ejection fraction, left atrial dilation, mild MVR. Moderate PVR. On discussion with cardiology today decided based on his symptoms, findings, and that he may follow-up on Tuesday for stress test discharging home in the meantime. She is not currently on aspirin, he states that he may have ran out of it. Discussed with him regarding anemia, some risk of bleeding, but also need for aspirin with history of CAD, CABG, current findings. As per discussion decision is to cautiously restart 81 mg aspirin. He knows to seek medical attention in case of noting any bleeding. He has not had any hematemesis, hematochezia or melena, no hematuria or other bleeding. Current position his left lateral mid lower leg hematoma was assessed with ultrasound which shows it to be unchanged in size showing complex collection c ompatible with hematoma. By imaging infection could not be excluded, but he has not had any redness, warmth, any worsening swelling or pain/tenderness, without signs of infection. Yesterday with some leukocytosis today this is resolved, he is afebrile. He knows to seek medical attention immediately in case of any of the above changes or any other worsening or concerning symptoms. Please follow-up blood counts and hematoma at next visit. 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 He is going to resume peritoneal dialysis. Peritoneal dialysate sample was sent for analysis and culture, analysis not suggestive of peritonitis, he has not had abdominal pain like he did last time. Please follow-up culture. He is otherwise feeling much better and feels ready to return home after his peritoneal dialysis session. Physical Exam Narrative: Visited by his daughter. Sitting up in bed. Getting ready to have lunch. In good spirits. Const: COMMON NORMALS: patient oriented x3 and alert GENERAL APPEARANCE: cooperative ORIENTATION/CONSCIOUSNESS: Yes awake HENMT: COMMON NORMALS: oropharynx normal Neck/C-Spine: COMMON NORMALS: no JVD Resp: COMMON NORMALS: normal respiratory effort and clear to auscultation bilaterally AUSCULTATION: clear to auscultation bilaterally Cardio: COMMON NORMALS: no JVD, regular rhythm, S1 normal heart sound present, S2 normal heart sound present and No murmurs present (Cardio) RHYTHM: regular rhythm HEART SOUNDS: S1 normal heart sound present and S2 normal heart sound present GI: COMMON NORMALS: Normal to inspection, nondistended, normoactive bowel sounds present, Soft to palpation and non-tender PALPATION: Yes Soft to palpation Extremity: COMMON NORMALS: no joint enlargement and no pedal edema Neuro: COMMON NORMALS: patient oriented x3 and moves all extremities SENSORIUM/ORIENTATION: Yes alert Skin: COMMON NORMALS: no rashes or lesions noted GENERAL SKIN EXAM: no rashes or lesions noted OTHER: Tattoos. Left anterior lateral mid lower leg elongated raised area of about a 4 x 10 cm of the prior hematoma, without erythema, without bruising. No open wound, no drainage. Discharge Data Studies Completed and Pending Completed Studies During Hospitalization Category Date Time Status XR chest 1V portable [id number] Urgent Exams 10/14/23 10:27 Completed CV. echo complete* [id number] Routine Ultrasound 10/15/23 06:00 Completed US soft tissue/extremity [id number] Routine Ultrasound 10/15/23 14:48 Completed Pending at discharge Category Date Time Status Blood Culture Stat Lab 10/14/23 14:28 Results Body Fluid Culture & GS Routine Lab 10/14/23 16:10 Received Complete Blood Count w/Auto AM LABS Lab 10/16/23 04:00 Ordered Complete Blood Count w/Auto AM LABS Lab 10/17/23 04:00 Ordered Comprehensive Metabolic Panel AM LABS Lab 10/16/23 04:00 Ordered Comprehensive Metabolic Panel AM LABS Lab 10/17/23 04:00 Ordered Radiology Impressions Chest X-Ray 10/14/23 10:27 IMPRESSION: No acute chest abnormality. Soft Tissue Ultrasound 10/15/23 14:48 IMPRESSION: Grossly similar size of left calf complex collection compatible with hematoma. Abscess or superimposed infection cannot be excluded by imaging alone. Laboratory Results WBC 10.56 10^3/uL (3.29-11.43) 10/15/23 05:44 RBC 2.67 10^6/uL (3.85-5.65) L 10/15/23 05:44 Hgb 7.50 g/dL (11.27-16.99) L 10/15/23 05:44 Hct 24.8 % (37-53) L 10/15/23 05:44 MCV 92.9 fl (82-101) 10/15/23 05:44 MCH 28.1 pg (27-33) 10/15/23 05:44 MCHC 30.2 g/dL (30-55) 10/15/23 05:44 RDW 17.0 % (12.1-15.1) H 10/15/23 05:44 Plt Count 264 10^3/cmm (157-399) 10/15/23 05:44 MPV 9.7 fL (7.4-10.4) 10/15/23 05:44 Neut % (Auto) 74.9 % 10/15/23 05:44 Lymph % (Auto) 14.2 % 10/15/23 05:44 Cassia % (Auto) 7.7 % 10/15/23 05:44 Eos % (Auto) 1.9 % 10/15/23 05:44 Baso % (Auto) 0.9 % 10/15/23 05:44 Neut # (Auto) 7.92 10^3/uL (1.8-7.7) H 10/15/23 05:44 Lymph # (Auto) 1.5 10^3/uL (0.8-4.8) 10/15/23 05:44 Cassia # (Auto) 0.8 10^3/uL (0.2-0.9) 10/15/23 05:44 Eos # (Auto) 0.2 10^3/uL (0.0-0.8) 10/15/23 05:44 Baso # (Auto) 0.1 10^3/uL (0.0-0.1) 10/15/23 05:44 Nucleated RBC % (auto) 0 % 10/15/23 05:44 Nucleated RBCs # 0.0 /100WBC 10/15/23 05:44 Sodium 139 mmol/L (136-145) 10/15/23 05:44 Potassium 4.2 mmol/L (3.5-5.1) 10/15/23 05:44 Chloride 95 mmol/L (98-107) L 10/15/23 05:44 Carbon Dioxide 30 mmol/L (22-29) H 10/15/23 05:44 Anion Gap 18.2 (5-19) 10/15/23 05:44 BUN 82 mg/dL (6-20) H* 10/15/23 05:44 Creatinine 8.2 mg/dL (0.7-1.2) H* 10/15/23 05:44 GFR Calculation 7.2 mL/min (90-130) L 10/15/23 05:44 Glucose 66 mg/dL (65-115) 10/15/23 05:44 POC Glucose 138 mg/dL (70-110) H 10/14/23 21:02 Calculated Osmolality 311 mOsm/kg (285-295) H 10/15/23 05:44 Calcium 8.3 mg/dL (8.5-10.5) L 10/15/23 05:44 Magnesium 1.9 mg/dL (1.7-2.3) 10/14/23 10:01 Total Bilirubin 0.2 mg/dL (0.15-1.2) 10/15/23 05:44 AST 15 U/L (0-40) 10/15/23 05:44 ALT 9 U/L (0-41) 10/15/23 05:44 Alkaline Phosphatase 50 U/L (40-130) 10/15/23 05:44 Troponin T Baseline 309 ng/L (0-15) H* 10/14/23 10:01 Troponin T 120 Minute 286.3 ng/L (0-15) H 10/14/23 11:59 Delta Troponin T -22.7 ABS# (0-10) L 10/14/23 11:59 Troponin T Hi Sens 6Hr 277.1 ng/L (0-15) H 10/14/23 16:12 Troponin T Hi Sens 6Hr Delta -31.9 ng/L (0-12) L 10/14/23 16:12 Total Protein 5.5 g/dL (6.6-8.7) L 10/15/23 05:44 Albumin 2.4 g/dL (3.5-5.2) L 10/15/23 05:44 Globulin 3.1 g/dL (1.3-4.6) 10/15/23 05:44 Peritoneal Color Colorless (Pale Yellow) 10/14/23 16:10 Peritoneal Appearance Clear (Clear) 10/14/23 16:10 Peritoneal WBC 102 /uL 10/14/23 16:10 Peritoneal RBC 0 10^3/uL 10/14/23 16:10 Periton Mononu # Auto 0.097 10^3/uL 10/14/23 16:10 Mononuclear WBCs % 95.100 % 10/14/23 16:10 Polynuclear WBCs % 4.900 % 10/14/23 16:10 Perit Polynuc WBCs # 0.005 10^3/uL 10/14/23 16:10 Blood Type AB Positive 10/14/23 10:51 Rho(D) Type Rh positive 10/14/23 10:51 Antibody Screen Negative 10/14/23 10:51 Vitals Last Vital Signs Temp 98.3 F 10/15/23 11:34 Pulse 82 10/15/23 11:34 Resp 17 10/15/23 11:34 BP 195/91 10/15/23 11:34 Pulse Ox 91 10/15/23 11:34 O2 Del Method Room Air 10/15/23 11:34 Discharge Plan Discharge Patient Disposition: Home Condition: Stable Prescriptions: New aspirin 81 mg capsule 81 mg PO DAILY Qty: 90 0RF Continued buspirone 5 mg tablet 5 mg PO TID carvedilol 25 mg Tablet 25 mg PO BID Rx Instructions: must administer with a meal/food venlafaxine 75 mg capsule,extended release 24hr 150 mg PO TID ondansetron HCl 4 mg tablet 4 mg PO Q6H PRN (Reason: Nausea And Vomiting) clonidine HCl 0.3 mg Tablet 0.3 mg PO TID furosemide 80 mg Tablet 80 mg PO BID doxycycline monohydrate 100 mg capsule 100 mg PO BID hydralazine 100 mg tablet 100 mg PO TID pantoprazole 40 mg tablet,delayed release (DR/EC) 40 mg PO DAILY ropinirole 0.5 mg tablet 0.5 mg PO BEDTIME megestrol 40 mg Tablet 40 mg PO BID Nitrostat 0.4 mg Tablet, Sublingual 0.4 mg SUBLINGUAL Q5M PRN (Reason: Chest Pain) Rx Instructions: do not exceed 3 doses per episode Remeron 15 mg Tablet 7.5 mg PO QPM gabapentin 100 mg capsule 100 mg PO TID lisinopril 40 mg Tablet 40 mg PO DAILY calcitriol 0.25 mcg Capsule 0.25 mcg PO DAILY Novolog FlexPen U-100 Insulin 100 unit/mL (3 mL) Insulin Pen 15 unit SUBCUT TID Lantus Solostar U-100 Insulin 100 unit/mL (3 mL) Insulin Pen 10 unit SUBCUT QPM sevelamer carbonate 800 mg tablet See Rx Instructions .ROUTE .COMPLEX Rx Instructions: TAKE 2 TABLETS BY MOUTH TWICE DAILY WITH MEAL AND 1 TABLET TWICE DAILY WITH SNACKS FOR TOTAL OF 6 TABLETS DAILY. RenaPlex-D 800 mcg-12.5 mg -2,000 unit Tablet 1 tab PO DAILY sodium bicarbonate 325 mg Tablet 325 mg PO DAILY Discharge Orders: Discharge Order (Routine); Ordered 10/15/23 Ordered By: Chris Arnold Other Ambulatory Orders: Sestamibi Stress Test Request (Routine) Timeframe: 1 Day Facility: [facility] - Location: [facility] Laboratory Ordered By: Chris Arnold Referrals: Sudha Veloz FNP [Nurse Practitioner] - 1 week Agnes Alvarado MD [Referring] - 4-7 days Discharge Diet: As Directed Patient Instructions: Opioid Safety Activity Restrictions/Additional Instructions: Please follow-up with your primary doctor for reassessment after episode of chest pain with troponin elevation, stress testing, follow-up also with cardiology clinic. Resume aspirin at 81 mg. Please have your primary doctor follow-up your anemia. Continue iron supplementation. Follow-up with nephrology. Continue peritoneal dialysis. Please have your primary doctor follow-up blood cultures and peritoneal fluid cultures. Please also follow-up with your primary doctor regarding unchanged hematoma collection on the side of the left leg. As discussed please seek medical attention immediately in case of development of any redness, warmth, worsening swelling, tenderness/pain which may be signs of development of an abscess. Discharge Attestations Time Spent in Discharge Care*: greater than 30 min Quality Metrics Clinical Quality Measures [ No reported AMI, CVA or VTE this stay] Coding Level of Care Code 47932 Total time (in minutes) for Discharge: 50 Diagnoses End-stage renal disease on peritoneal dialysis N18.6; Z99.2
--- NOTE | 2023-10-15 14:48 | USR_ITS ---
PROCEDURE INFORMATION: Exam: US Left Limited Joint or Other Non-Vascular Extremity Structure Exam date and time: 10/15/2023 9:09 AM Age: 43 years old Clinical indication: Swelling; Lower leg; Left; Additional info: Lle hematoma, appears possibly unimproved, assess for any abscess or other TECHNIQUE: Imaging protocol: US left limited joint or other nonvascular extremity structure. Real-time ultrasound with image documentation. COMPARISON: [place] [id number] 09/15/2023 1:27 AM FINDINGS: Soft tissues: Redemonstrated large heterogeneous hypoechoic collection at the lateral left calf area of concern. Grossly similar size, measuring approximately 9 x 2.1 x 5 cm. Increased through transmission. No internal flow on color Doppler. Surrounding echogenic inflamed fat. US/US soft tissue/extremity [id number] IMPRESSION: Grossly similar size of left calf complex collection compatible with hematoma. Abscess or superimposed infection cannot be excluded by imaging alone.
== END 2023-10-15 14:54 | disposition home or self-care (01) ==
LOC: ER 13:52 → MEDSURG 13:59
PROVIDERS: Physician Assistant; Admitting Provider Internal Medicine; Emergency Provider Emergency Medicine; Visit Provider Internal Medicine
DX: E11.22 Type 2 diabetes mellitus with diabetic chronic kidney disease (principal); I12.9 Hypertensive chronic kidney disease with stage 1 through stage 4 chronic kidney disease, or unspecified chronic kidney disease; N18.6 End stage renal disease; Z99.2 Dependence on renal dialysis; D63.1 Anemia in chronic kidney disease; R11.10 Vomiting, unspecified; R07.9 Chest pain, unspecified; R79.89 Other specified abnormal findings of blood chemistry; S80.12XA Contusion of left lower leg, initial encounter; X58.XXXA Exposure to other specified factors, initial encounter; I25.10 Atherosclerotic heart disease of native coronary artery without angina pectoris; Z79.4 Long term (current) use of insulin; F32.A Depression, unspecified; Z95.1 Presence of aortocoronary bypass graft; M62.50 Muscle wasting and atrophy, not elsewhere classified, unspecified site
CPT/HCPCS: 36415; 36416; 71045; 76882; 80053; 80503; 82962; 83735; 84484; 85025; 86850; 86900; 87040; 87070; 87075; 87205; 89050; 93005; 93306; 96372; 99285; G0378; J1815

== ENCOUNTER 2023-10-24 07:28 | Outpatient (CLI) | payer MEDICARE, SELFPAY ==
--- NOTE | 2023-10-24 | ECG_ITS ---
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 Interpretive Statements NAME OF STUDY: LEXISCAN SESTAMIBI STRESS TEST INDICATION: CHEST PAIN; CAD; TROPONIN ELEVATION PROCEDURE: At the baseline, the EKG revealed normal sinus rhythm with a poor R wave progression. Features of old anteroseptal MT. Nonspecific T wave changes. Nonspecific IVCD. The baseline heart was 80 bpm with a blood pressue of 179/114 mm of Hg Lexiscan was infused over a period of 20 seconds. A total of 0.4 milligrams of Lexiscan was infused. The stress phase was continued for a total of 5 minutes. Heart rate at the end of the stress phase was 90 bpm with a blood pressure 138/89 mm of Hg. The EKG at the peak infusion revealed no significant changes. Sestamibi was injected 20 seconds after the Lexiscan infusion. Heart rate at the end of the recovery phase was 88 bpm with a blood pressure of 148/94 mm of Hg. CONCLUSION: 1. No significant EKG changes with the LexiScan infusion 2. No LexiScan induced chest pain or cardiac arrhythmia 3. Normal blood pressure and heart rate response 4. Sestamibi/sestamibi perfusion scan pending; see separate report. Electronically Signed On 10-27-2023 22:57:43 CDT by Ursula Lyn M.D. [email or web address]
--- NOTE | 2023-10-24 08:00 | NMCV_ITS ---
NM cynthia perf SPECT r/s* [id number] Jose Guadalupe Claudio Age: 43 Gender: M : 1980 Exam Date: 10/24/2023 08:00 Ordering Phys: Chris Arnold MD Technologist: CHARIS Mohr Exam Location: [facility] Indications: CP, elevated troponins STRESS TEST [facility] IMAGE PROTOCOL Rest/Stress 1 Lexiscan Day Radiopharmaceutical Dose (mCi) Administration Site Administered by Rest: Tc-99m 10.8 IV CHARIS Mohr Sestamibi Stress:Tc-99m 32.4 IV CHARIS Mohr Sestamibi Rest: 24-Oct-2023 60 Discovery 630 Stress: 24-Oct-2023 30 Discovery 630 0.4mg Lexiscan. Supine position only as patient was unable to lay prone. SPECT RESULTS Technical Quality: Good Raw Data Analysis: Normal Image Corrections: No attenuation or motion correction applied Summed Stress Score: 3 Summed Rest Score: 1 Summed Difference Score: 2 PERFUSION FINDINGS Small areas of slightly decreased tracer uptake were noted in the basal inferolateral, mid inferior and mid anteroseptal regions. Some reversibility was noted in the basal inferolateral and mid inferior regions. However with the prone imaging, no significant reversibility was noted. FUNCTIONAL RESULTS (calculated via Gated SPECT) Stress Image LV EF (%): 40 Stress EDV (mL):186 TID: 1.14 Stress ESV (mL):112 FUNCTIONAL FINDINGS: Segmental wall motion analysis reveals diffuse hypokinesia of the left ventricle IMPRESSIONS 1. Myocardial perfusion imaging revealing patchy areas of decreased tracer uptake in the anteroseptal, mid inferior and inferolateral regions with some ischemia in the mid inferior and inferobasal regions, with the supine imaging. This may suggest ischemia in the distribution of the right coronary artery . However because of the inconsistency, the positive predictive value is very limited 2. Diminished LV ejection fraction of 40%. 3. Similar segmental wall motion analysis revealing diffuse hypokinesia of the left ventricle 4. Moderately dilated LV cavity with an end-systolic volume of 112 mL No similar previous studies are available for comparison Dr Ursula Lyn MD [facility] (Electronically Signed) Final Date: 24 October 2023 12:15 S
[2023-10-24 08:09] VITALS: BMI 22.4
[2023-10-24] MEDS: regadenoson 0.4 Mg/5 ml Syringe IVP (09:41)
[2023-10-24 09:57] VITALS: BP 138/65; PULSE 82
== END 2023-10-24 07:29 | disposition home or self-care (01) ==
PROVIDERS: PCP Family Medicine; Visit Provider Internal Medicine
DX: R07.9 Chest pain, unspecified (principal); R79.89 Other specified abnormal findings of blood chemistry; R94.39 Abnormal result of other cardiovascular function study; I51.7 Cardiomegaly; I51.89 Other ill-defined heart diseases
CPT/HCPCS: 36415; 78452; 93017; 96374; A9500; J2785

== ENCOUNTER 2023-10-29 17:07 | Emergency (ER) | payer MEDICARE, SELFPAY ==
[2023-10-29 17:18] VITALS: BP 143/83; PULSE 96; RESP 17; TEMP 36.6; O2SAT 98; BMI 21.9
--- NOTE | 2023-10-29 17:24 | XRR_ITS ---
PROCEDURE INFORMATION: Exam: XR Right Ankle Exam date and time: 10/29/2023 5:34 PM Age: 43 years old Clinical indication: Injury or trauma; Patient HX: RT ankle pain post fall TECHNIQUE: Imaging protocol: Radiologic exam of the right ankle. Views: 3 or more views. COMPARISON: No relevant prior studies available. FINDINGS: Bones/joints: Moderate osseous demineralization. Fractures of the medial, lateral, and posterior malleoli . Soft tissues: Mild diffuse soft tissue swelling. Vasculature: Peripheral atherosclerotic calcifications are present. XR/XR ankle RT min 3V* [id number] IMPRESSION: Trimalleolar fracture.
--- NOTE | 2023-10-29 17:29 | ED_ITS ---
HPI - Extremity Problem General: Chief complaint: Extremity Injury, Lower Stated complaint: right ankle pain Time Seen by Provider: 10/29/23 17:08 History of Present Illness: 43-year-old male patient comes in with p ain and tenderness to the joint line of the right ankle. Patient reports twisted his ankle 2 nights ago when his spouse and him excellently fell to the floor during a transfer from wheelchair to toilet. Patient appears nontoxic. Minimal swelling is noted to the lower extremity. Pulses and cap refill are intact. Patient has a history of coronary artery disease, renal failure, CVA, and type 2 diabetes. Patient appears chronically ill. Patient appears in mild to moderate pain. Review of Systems General: Reports: 10 or more systems reviewed and unremarkable except in HPI a nd below Musc: Reports: joint pain and joint swelling [facility] ED PFSH: Medical History Restless leg syndrome Peritonitis CAD (coronary artery disease) Depression End-stage renal disease on peritoneal dialysis Anemia Surgical History Hx of CABG Social History Alcohol intake: never Substance/Drug Use: current Other substance/drug use details: Medical marijuana Physical Exam Const: COMMON NORMALS: alert HENMT: COMMON NORMALS: normocephalic HEAD & SCALP: normocephalic Neck/C-Spine: COMMON NORMALS: full ROM Chest: COMMONS NORMALS: normal inspection of the chest Resp: COMMON NORMALS: normal respiratory effort and clear to auscultation bilaterally AUSCULTATION: clear to auscultation bilaterally Cardio: COMMON NORMALS: regular rate RATE: regular rate GI: COMMON NORMALS: non-tender Back/Pelvis: COMMON NORMALS: thoracic and lumbar spine normal to inspection Extremity: RIGHT LOWER EXTREMITY: Yes foot & digits (Minimal swelling, joint line tenderness) Neuro: SENSORIUM/ORIENTATION: Yes alert Skin: COMMON NORMALS: turgor normal GENERAL SKIN EXAM: turgor normal Course Vital Signs: Vital signs: Vital Signs Temperature 97.9 F 10/29/23 17:18 Pulse Rate 96 10/29/23 17:18 Respiratory Rate 17 10/29/23 17:18 Blood Pressure 143/83 10/29/23 17:18 Pulse Oximetry 98 10/29/23 17:18 Oxygen Delivery Me thod Room Air 10/29/23 17:18 MDM - Extremity (Nontraumatic) Medical Decision Making 43-year-old male patient comes in today with joint line tenderness of the right ankle. On exam patient appears nontoxic. Patient appears no acute distress. Cap refill is intact. Differential diagnosis includes but not limited to fracture, sprain, dislocation, contusion. Wet read notices a fracture of the mallear tibia of the right lower extremity, and the distal fibula. Patient was paced in the ankle splint consisting of a posterior short leg and stirrup. Patient will be given medications for pain. Patient is nonambulatory. Recommended follow-up with entry specialist for consideration of further treatment. Patient and spouse reported understanding and agreed to plan. XR interpretation done by ED provider, pending radiology final review Discharge Plan Discharge Patient Disposition: Home Clinical Impression: Bimalleolar avulsion fracture of right ankle Condition: Stable Prescriptions: New hydrocodone-acetaminophen 5-325 mg tablet 1 tab PO Q6H PRN (Reason: pain) Qty: 14 0RF No Action buspirone 5 mg tablet 5 mg PO TID carvedilol 25 mg Tablet 25 mg PO BID Rx Instructions: must administer with a meal/food venlafaxine 75 mg capsule,extended release 24hr 150 mg PO TID ondansetron HCl 4 mg tablet 4 mg PO Q6H PRN (Reason: Nausea And Vomiting) clonidine HCl 0.3 mg Tablet 0.3 mg PO TID furosemide 80 mg Tablet 80 mg PO BID doxycycline monohydrate 100 mg capsule 100 mg PO BID hydralazine 100 mg tablet 100 mg PO TID pantoprazole 40 mg tablet,delayed release (DR/EC) 40 mg PO DAILY ropinirole 0.5 mg tablet 0.5 mg PO BEDTIME megestrol 40 mg Tablet 40 mg PO BID Nitrostat 0.4 mg Tablet, Sublingual 0.4 mg SUBLINGUAL Q5M PRN (Reason: Chest Pain) Rx Instructions: do not exceed 3 doses per episode Remeron 15 mg Tablet 7.5 mg PO QPM gabapentin 100 mg capsule 100 mg PO TID lisinopril 40 mg Tablet 40 mg PO DAILY calcitriol 0.25 mcg Capsule 0.25 mcg PO DAILY Novolog FlexPen U-100 Insulin 100 unit/mL (3 mL) Insulin Pen 15 unit SUBCUT TID Lantus Solostar U-100 Insulin 100 unit/mL (3 mL) Insulin Pen 10 unit SUBCUT QPM sevelamer carbonate 800 mg tablet See Rx Instructions .ROUTE .COMPLEX Rx Instructions: TAKE 2 TABLETS BY MOUTH TWICE DAILY WITH MEAL AND 1 TABLET TWICE DAILY WITH SNACKS FOR TOTAL OF 6 TABLETS DAILY. RenaPlex-D 800 mcg-12.5 mg -2,000 unit Tablet 1 tab PO DAILY sodium bicarbonate 325 mg Tablet 325 mg PO DAILY aspirin 81 mg capsule 81 mg PO DAILY Qty: 90 0RF Discharge Orders: Discharge ED (Routine); Ordered 10/29/23 Ordered By: Wilmer Brady Referrals: Yaniv Moe MD [Primary Care Provider] - Discharge Diet: Usual diet Discharge Activity: Limit activity as instructed Patient Instructions: Ankle Fracture (ED) Activity Restrictions/Additional Instructions: Home and rest. Avoid weightbearing as much as possible. Elevate extremity is much as possible. Use routine medication for pain as directed. Use hydrocodone for breakthrough pain. Follow-up with entry specialist for further evaluation and treatment. Keep splint clean and dry. Return to ER for new concerns. Thank you for choosing [facility] for your healthcare needs today. Please realize that you were seen in the emergency department and that we are providing you with an emergency medical screening exam and this may not be a complete and all exclusive of all testing and/or medical workup we may need to determine your element or severity of your illness. It is very important that you follow-up as instructed with your primary care provider or specialist for the additional evaluation and to discuss your medical treatment plan. You may return to the emergency department should you have concerns or if your condition changes or worsens in any way. Coding Level of Care Code ED Sock Knitter for Monik iRley
[2023-10-29] MEDS: HYDROcodone-acetaminophen 5-325 mg Tablet 1 TAB PO (18:29)
--- NOTE | 2023-11-02 07:48 | DCPLANNER ---
podiatry messaged for er f/u
== END 2023-10-29 18:36 | disposition home or self-care (01) ==
PROVIDERS: Emergency Provider Nurse Practitioner Family; PCP Family Medicine
DX: S82.841A Displaced bimalleolar fracture of right lower leg, initial encounter for closed fracture (principal); Z79.82 Long term (current) use of aspirin; Z79.4 Long term (current) use of insulin; I25.10 Atherosclerotic heart disease of native coronary artery without angina pectoris; N18.6 End stage renal disease; Z99.2 Dependence on renal dialysis; Z95.1 Presence of aortocoronary bypass graft; X50.1XXA Overexertion from prolonged static or awkward postures, initial encounter
CPT/HCPCS: 73610; 99283

== ENCOUNTER → 2023-11-03 12:53 | Outpatient (BNVA) | payer MEDICARE, SELFPAY | PROVIDERS: PCP Family Medicine; Visit Provider Podiatrist Foot & Ankle Surgery | DX: S82.851A Displaced trimalleolar fracture of right lower leg, initial encounter for closed fracture (principal); M21.41 Flat foot [pes planus] (acquired), right foot; M21.42 Flat foot [pes planus] (acquired), left foot; N18.6 End stage renal disease; Z99.2 Dependence on renal dialysis; E11.42 Type 2 diabetes mellitus with diabetic polyneuropathy; W05.0XXA Fall from non-moving wheelchair, initial encounter; E11.29 Type 2 diabetes mellitus with other diabetic kidney complication; Z79.4 Long term (current) use of insulin | CPT/HCPCS: 99204 ==

== ENCOUNTER 2023-11-11 05:49 | Day surgery (SDC) | payer MEDICARE, SELFPAY ==
[2023-11-11] VITALS (11 sets, daily range): BP systolic 160–198; BP diastolic 99–119; PULSE 79–86; RESP 16–18; TEMP 36.1–36.4; O2SAT 94–99; BMI 22.8
--- NOTE | 2023-11-11 | XR_ITS ---
WS: [id number] XR ankle RT min 3V* [id number] REASON FOR EXAM: ROHINI PICS FINDINGS: Intramedullary deandra arthrodesis of the tibiotalar and talocalcaneal joints with a long longitudinal tr anscalcaneal screws. Surgical appliances are intact and in proper position and alignment. Arthrodesis alignment is anatomic. XR/XR ankle RT min 3V* [id number] IMPRESSION: Right ankle arthrodesis as above.
[2023-11-11] MEDS: sodium chloride 0.9% 1,000 ML 30 ML IV (06:15)
[2023-11-11 06:25] LABS: Glucose Point of Care 90 mg/dL (70-110)
[2023-11-11 06:27] LABS: Basophils # 0.1 10^3/uL (0.0-0.1); Basophils % 0.8 %; Eosinophils # 0.1 10^3/uL (0.0-0.8); Eosinophils % 0.8 %; Hematocrit 30.8 % (37-53); Lymphocytes # 2.3 10^3/uL (0.8-4.8); Lymphocytes % 13.5 %; Mean Corpuscular HGB Conc 30.5 g/dL (30-55); Mean Corpuscular Hemoglobin 28.5 pg (27-33); Mean Corpuscular Volume 93.3 fl (82-101); Mean Platelet Volume 9.9 fL (7.4-10.4); Monocytes # 1.4 10^3/uL (0.2-0.9); Monocytes % 8.4 %; Neutrophils # 12.97 10^3/uL (1.8-7.7); Nucleated Red Blood Cells % 0.2 %; Platelet Count 511 10^3/cmm (157-399); Red Cell Distribution Width 17.5 % (12.1-15.1); White Blood Count 17.06 10^3/uL (3.29-11.43)
--- NOTE | 2023-11-11 06:33 | ANES.PREANE2 ---
Pre-Anesthetic Assessment Height/Weight: Height 1.83 m Weight 76.204 kg O2 Del Method Room Air 11/11/23 06:05 Preop Diagnosis: Left trimalleolar fracture, left pes planus. Operation Date: 11/11/23 07:00 Proposed Procedures p Subtalar Joint Fusion(Right) - Bunny Brantley DPM s Ankle Fusion(Right) - Bunny Brantley DPM Familial anesthetic complications: None Was Beta Ivette taken within 24 hours: N/A Was Clonidine taken within 24 hours: N/A Last intake: Intake Last Liquid Date 11/10/23 Last Liquid Time 22:00 Last Solid Date 11/10/23 Last Solid Time 22:00 Social No alcohol and No tobacco marijuana Exam alert, oriented x 3, clear to auscultation bilaterally and regular rate & rhythm Airway Mallampati: Class II Dentition: full CV/HEM Hypertension Myocardial Infusions IMPRESSIONS 1. Myocardial perfusion imaging revealing patchy areas of decreased tracer uptake in the anteroseptal, mid inferior and inferolateral regions with some ischemia in the mid inferior and inferobasal regions, with the supine imaging. This may suggest ischemia in the distribution of the right coronary artery . However because of the inconsistency, the positive predictive value is very limited 2. Diminished LV ejection fraction of 40%. 3. Similar segmental wall motion analysis revealing diffuse hypokinesia of the left ventricle 4. Moderately dilated LV cavity with an end-systolic volume of 112 mL No similar previous studies are available for comparison Exercise Stress test CONCLUSION: 1. No significant EKG changes with the LexiScan infusion 2. No LexiScan induced chest pain or cardiac arrhythmia 3. Normal blood pressure and heart rate response 4. Sestamibi/sestamibi perfusion scan pending; see separate report. Echo CONCLUSIONS LV systolic function is normal with EF of 55-60% Left atrial dilation Mild mitral regurgitation Moderate pulmonic regurgitation. No comparison studies are available. Chronic Renal Failure GI Gastroesophageal Reflux Disease active reflux - bicitra, pepcid, reglan Metabolic Diabetes Mellitus Anesthetic Plan ASA status: 4 Anesthesia: General and Regional (specify below) Risk of > 500 ml blood loss (7ml/kg in children): No Medications/Allergies Home Medications Medication Instructions Recorded Confirmed Last Taken Type buspirone 5 mg tablet 5 mg PO TID 10/14/23 11/10/23 11/10/23 History calcitriol 0.25 mcg capsule 0.25 mcg PO DAILY 10/14/23 11/10/23 11/10/23 History carvedilol 25 mg tablet 25 mg PO DAILY 10/14/23 11/10/23 11/10/23 History clonidine HCl 0.3 mg tablet 0.3 mg PO TID 10/14/23 11/10/23 11/11/23 History furosemide 80 mg tablet 80 mg PO BID 10/14/23 11/10/23 11/10/23 History gabapentin 100 mg capsule 100 mg PO TID 10/14/23 11/10/23 11/10/23 History hydralazine 100 mg tablet 100 mg PO TID 10/14/23 11/10/23 11/11/23 History insulin aspart U-100 100 unit/mL 15 unit SUBCUT TID 10/14/23 11/10/23 11/10/23 History (3 mL) subcutaneous pen (Novolog FlexPen U-100 Insulin aspart) insulin glargine 100 unit/mL (3 10 unit SUBCUT QPM 10/14/23 11/10/23 11/10/23 History mL) subcutaneous pen (Lantus Solostar U-100 Insulin) lisinopril 40 mg tablet 40 mg PO DAILY 10/14/23 11/10/23 11/10/23 History megestrol 40 mg tablet 40 mg PO BID 10/14/23 11/10/23 11/11/23 History mirtazapine 15 mg tablet (Remeron) 7.5 mg PO QPM 10/14/23 11/10/23 11/10/23 History nitroglycerin 0.4 mg sublingual 0.4 mg sublingual Q5M PRN Chest 10/14/23 11/10/23 10/14/23 History tablet (Nitrostat) Pain ondansetron HCl 4 mg tablet 4 mg PO Q6H PRN Nausea And Vomiting 10/14/23 11/11/23 Unknown History pantoprazole 40 mg tablet,delayed 40 mg PO DAILY 10/14/23 11/10/23 11/11/23 History release ropinirole 0.5 mg tablet 0.5 mg PO BEDTIME 10/14/23 11/10/23 11/10/23 History sevelamer carbonate 800 mg tablet See Rx Instructions .Route .COMPLEX 10/14/23 11/10/23 11/10/23 History sodium bicarbonate 325 mg tablet 325 mg PO DAILY 10/14/23 11/10/23 11/11/23 History venlafaxine 75 mg capsule,extended 150 mg PO TID 10/14/23 11/10/23 11/11/23 History release 24 hr vit B,C-folic ac 800 mcg-zinc 12.5 1 tab PO DAILY 10/14/23 11/10/23 11/10/23 History mg-selen-D3 2,000 unit-vit E tablet (RenaPlex-D) aspirin 81 mg capsule 81 mg PO DAILY #90 caps 10/15/23 11/10/23 11/10/23 Rx oxycodone-acetaminophen 10 mg-325 1 tab PO Q6H PRN pain 7 days #28 11/11/23 Unknown Rx mg tablet (Percocet) tabs Allergies Allergy/AdvReac Type Severity Reaction Status Date / Time No Known Allergies Allergy Verified 11/11/23 06:09 PFS Anesthesia Medical History Restless leg syndrome Peritonitis CAD (coronary artery disease) Depression End-stage renal disease on peritoneal dialysis Anemia Surgical History Hx of CABG Social History Smoking and tobacco/nicotine status: unknown if used tobacco/nicotine Alcohol intake: never Substance/Drug Use: current Other substance/drug use details: Medical marijuana Data Anesthesia 11/11/23 06:15 11/11/23 06:46 Short CBC 11/11/23 Range/Units 06:15 WBC 17.06 H (3.29-11.43) 10^3/uL Hgb 9.40 L (11.27-16.99) g/dL Hct 30.8 L (37-53) % MCV 93.3 (82-101) fl Plt Count 511 H (157-399) 10^3/cmm Neut % (Auto) 76.0 % Neut # (Auto) 12.97 H (1.8-7.7) 10^3/uL Cardiac Studies: Echocardiogram 10/15/23 Sestamibi Stress Test (Cardiology) 10/24/23
[2023-11-11] MEDS: famotidine 20 mg/2 mL INJ IVP (07:06)
[2023-11-11] MEDS: metoclopramide 5 mg/mL SDV 2 mL 10 MG IVP (07:06)
[2023-11-11] MEDS: citric acid-sodium citrate 30 mL UDC PO (07:06)
[2023-11-11 07:15] LABS: Anion Gap 22.5 (5-19); Blood Urea Nitrogen 60 mg/dL (6-20); Calcium 8.9 mg/dL (8.5-10.5); Carbon Dioxide 26 mmol/L (22-29); Chloride 89 mmol/L (98-107); Creatinine Clr Calc Pharmacy 11.1654; Glomerular Filtration Rate 6.3 mL/min (90-130); Glucose 97 mg/dL (65-115); Osmolality Calculated 295 mOsm/kg (285-295); Potassium 3.5 mmol/L (3.5-5.1); Sodium 134 mmol/L (136-145)
--- NOTE | 2023-11-11 07:21 | SUR.PREOP ---
critical lab called to Dr. Gómez creatinine 9.2 at 0718 11/11/23
--- NOTE | 2023-11-11 07:40 | ANES.PROC ---
Anesthesia Procedures Procedure/Date: 11/11/23 Nerve Block ^: Nerve Block 1: Main Anesthesia: general anesthesia Time Out Performed: Yes Consent: requested by attending/covering physician, from patient, from other, risks and benefits reviewed and patient agrees to proceed Nerve block location: popliteal (R) Anesthesia monitors applied: pulse oximetry, EKG, BP cuff and oxygen Nerve block position: supine Anesthetic Used: ropivicaine 0.5% (30 ml) and with decadron (4 mg) Ultrasound used to: recognize landmarks Nerve Stimulator Used?: No Interscalene/Femoral BLK: 4 stimuplex 21 g needle used for position and inplane approach, visualize local anesthetic spread and no vascular puncture identified Injection: neg aspiration of heme Patient Tolerated Procedure: well Complications: none
--- NOTE | 2023-11-11 08:06 | W.PM.OPSUD ---
Surgery/Procedure H&P Update DATE OF PROCEDURE: November 11, 2023 DATE H&P PERFORMED: 11/03/23 H&P UPDATE INFORMATION: I have reviewed H&P completed within last 30 days, I have examined patient prior to procedure, No changes to prior documentation and H&P is in [facility] EMR on date indicated CHANGES TO PREVIOUS DOCUMENTATION: None PREOP DIAGNOSIS: Left trimalleolar fracture, left pes planus. PLANNED PROCEDURE: Operation Date: 11/11/23 07:00 Proposed Procedures p Subtalar Joint Fusion(Right) - Bunny Brantley DPM s Ankle Fusion(Right) - Bunny Brantley DPM
[2023-11-11] MEDS: ceFAZolin 2,000 mg SDV 2000 MG IVP (08:12)
--- NOTE | 2023-11-11 10:02 | W.PM.BPON ---
Date of Procedure: 06/24/23 Surgeon: Bunny Brantley DPM Speech Language Pathologist Prn(s): Yunier Procedure(s) performed: Right tibial talocalcaneal arthrodesis Findings of the procedure(s): None Estimated blood loss: 100 mL Specimen(s) removed: None Post-operative diagnosis: Right trimalleolar fracture, right pes planus 76 minutes tourniquet time, General, popliteal block, supine
--- NOTE | 2023-11-11 10:03 | P.OP_ITS ---
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 CPT code 36314 2) right subtalar joint fusion. CPT code 02138 Implants: [place] phantom tibial talocalcaneal nail. 7.2 mm calcaneal screw x 2 5.0 mm tibial screw x 2 4?0 nylon. Specimens removed/disposition: No specimens Pathology: No pathology Surgeon: Bunny Brantley DPM Creel Cleaner: Raysa Stewart Estimated blood loss: 100 76 IV fluids: See intraoperative documentation Urine output: See intraoperative documentation Brief History: 43 year old male pateint establishing care for a right Trimalleolar Fracture. Patient fell while transferring from wheelchair to toilet. DOI: 10/27/23 Patient is wheelchair-bound, lives a sedentary life, he only stands for transfer given his high comorbidities with end-stage renal disease with peritoneal dialysis, diabetes and sedentary lifestyle recommending intramedullary nailing will be corrective of pes planus with subtalar joint fusion and tibiotalar joint fusion for treatment of trimalleolar fracture. I reviewed at length with the patient, the risks, potential complications, benefits, alternatives, expectations, and typical outcomes associated with the surgery. The risks and potential complications were explained in detail, including but not limited to infection, wound dehiscence or soft tissue complications, bleeding and hematoma, chronic edema, neuritis or nerve damage producing numbness or chronic pain, CRPS, failure to relieve pain or worsening pain, thick / painful / unsightly s car, limited motion / stiffness, malposition, delayed union, malunion, or nonunion, fracture, reaction to implants, anesthetic complications, venous thromboembolism, and deformity recurrence. I discussed the notion of no regrets with the patient as it pertains to complications and outcomes. The patient seemed to understand the nature of the proposed care and required convalescence. They asked appropriate questions, answered to their satisfaction. They are aware no guarantees can be made as to a satisfactory outcome and they understand there may be other possible unforeseen complications or outcomes not listed here that will be treated accordingly if they arise. There were no written or implied guarantees given to the patient. They gave informed consent to proceed. Preoperative risk assessment was performed by cardiology. Procedure: Under mild sedation patient was brought to the operating room and placed onto the operating table in supine position. A timeout was performed. Anesthesia was then administered by the anesthesia service. Local anesthesia injected by myself consisting of 30 cc of one-to-one mixture 1% lidocaine and 0.5 sent Marcaine plain in a right 5 point ankle block fashion. Well-padded pneumatic tourniquet applied to the right high calf. Right lower extremity was scrubbed, prepped and draped utilizing normal aseptic technique. Right foot was elevated and tourniquet inflated to 250 mmHg. Attention was directed to the right lower extremity where a trimalleolar fracture was appreciated as well as pes planus foot type. Utilizing C arm fluoroscopy in the AP, oblique and lateral views a guidewire was inserted from inferior to superior starting at the inferior anterior calcaneal body advancing through subtalar joint and tibiotalar joint with the ankle joint held in neutral position and subtalar joint held in slight valgus, second toe was lined up with the patella. After having placed the guidewire and incision was performed longitudinally at the right plantar foot. A entry reamer was then advanced through subtalar joint and tibiotalar joint followed by reaming utilizing standard technique and 5 mm increments sizing up a hindfoot nail. Hindfoot nail was placed and subtalar joint and tibiotalar joint were fused utilizing standard technique. Nail was fixated with 2 calcaneal screws from posterior to anterior not violating the calcaneocuboid joint and 2 tibial screws from medial to lateral with excellent bony apposition and compression. Excellent alignment of tibiotalar joint and subtalar joint for fusion was appreciated. Incisions were irrigated with saline solution and closed with 4-0 nylon. Final fluoroscopy was performed with AP, oblique and lateral views confirmed excellent alignment and placement of hardware. Incisions were dressed with Adaptic, sterile 4 x 4's, Kerlix followed by application of a well-padded short leg cast to the right lower extremity. Tourniquet was then deflated and a prompt hyperemic response is noted to the distal digits of the right foot. Patient tolerated the procedure and anesthesia well and was transferred to the PACU with vital signs stable and vascular status intact. Following a period of postoperative monitoring be discharged home. Is to begin taking an 81 mg aspirin once daily starting the morning after surgery to help potentially reduce the risks of deep vein thrombosis. He and his are both educated on signs of DVT consisting of but not limited to calf pain, swelling, redness and warmth within the calf, shortness of breath or chest pain should he experience these symptoms he is to present to the emergency department immediately. Patient was given at home care instructions and scheduled follow-up is to be nonweightbearing to the right lower extremity is complicating this with a wheelchair.
--- NOTE | 2023-11-11 12:00 | ANE.PACU2 ---
Inpatient post-anesthesia follow up: Airway intact: Yes Vital signs: Temperature 97.0 F Pulse Rate 85 Respiratory Rate 18 Blood Pressure 164/102 Pulse Oximetry 96 Oxygen Delivery Me thod Room Air Oxygen Flow Rate Fraction of Inspir ed Oxygen Hydration adequate: Yes Nausea and vomiting: No Pain level: 1 Mental status: Baseline
== END 2023-11-11 12:00 | disposition home or self-care (01) ==
PROVIDERS: Anesthesiology; PCP Family Medicine; Visit Provider Podiatrist Foot & Ankle Surgery
PROC: (CPT 28725; principal; 2023-11-11 07:00)
PROC: (CPT 27870; 2023-11-11 07:00)
DX: S82.821A Torus fracture of lower end of right fibula, initial encounter for closed fracture (principal); X58.XXXA Exposure to other specified factors, initial encounter; Q66.51 Congenital pes planus, right foot; K21.9 Gastro-esophageal reflux disease without esophagitis; Z79.4 Long term (current) use of insulin; Z79.82 Long term (current) use of aspirin; I25.10 Atherosclerotic heart disease of native coronary artery without angina pectoris; E11.22 Type 2 diabetes mellitus with diabetic chronic kidney disease; I12.9 Hypertensive chronic kidney disease with stage 1 through stage 4 chronic kidney disease, or unspecified chronic kidney disease; N18.6 End stage renal disease; Z99.2 Dependence on renal dialysis; Z95.1 Presence of aortocoronary bypass graft; E11.42 Type 2 diabetes mellitus with diabetic polyneuropathy
CPT/HCPCS: 27870; 28725; 36416; 73610; 76000; 80048; 82962; 85025; C1713; J0330; J0690; J1100; J2250; J2405; J2704; J2765; J2795; J3010; J3490; J7030

== ENCOUNTER → 2023-11-24 15:15 | Outpatient (BNVA) | payer MEDICARE, SELFPAY | PROVIDERS: PCP Family Medicine; Visit Provider Podiatrist Foot & Ankle Surgery | DX: Z98.890 Other specified postprocedural states (principal); E11.42 Type 2 diabetes mellitus with diabetic polyneuropathy; N18.6 End stage renal disease; Z99.2 Dependence on renal dialysis; Z79.4 Long term (current) use of insulin | CPT/HCPCS: 73630; 99024 ==

== ENCOUNTER → 2023-12-02 09:59 | Outpatient (BNVA) | payer MEDICARE, SELFPAY | PROVIDERS: PCP Family Medicine; Visit Provider Podiatrist Foot & Ankle Surgery | DX: Z98.890 Other specified postprocedural states (principal); Z47.89 Encounter for other orthopedic aftercare | CPT/HCPCS: 73610 ==

== ENCOUNTER 2023-12-02 10:45 | Outpatient (CLI) | payer MEDICARE, SELFPAY | END 2023-12-02 10:46 | disposition home or self-care (01) | LOC: SPT 10:46 | PROVIDERS: PCP Family Medicine; Visit Provider Podiatrist Foot & Ankle Surgery | DX: Z47.89 Encounter for other orthopedic aftercare (principal) | CPT/HCPCS: L4361 ==

== ENCOUNTER 2023-12-02 19:24 | Emergency (ER) | payer MEDICARE, SELFPAY ==
[2023-12-02 19:27] VITALS: BP 170/115; PULSE 84; RESP 17; TEMP 36.6; O2SAT 92; BMI 22.6
--- NOTE | 2023-12-02 19:36 | XRR_ITS ---
PROCEDURE INFORMATION: Exam: XR Chest Exam date and time: 12/02/2023 7:54 PM Age: 43 years old Clinical indication: Dyspnea and shortness of breath; Prior surgery; Surgery date: 6+ months; Surgery type: Cabg; Patient HX: C/O SOB and dyspnea. TECHNIQUE: Imaging protocol: Radiologic exam of the chest. Views: 1 view. COMPARISON: CR XR chest 1V portable [id number] 10/14/2023 10:35 AM FINDINGS: Lungs: Mild bibasilar atelectasis. No focal consolidations. Central vascular prominence. Pleural spaces: No pleural effusion. No pneumothorax. Heart/Mediastinum: No cardiomegaly. Bones/joints: Median sternotomy wires. XR/XR chest 1V portable [id number] IMPRESSION: Mild bibasilar atelectasis. No focal consolidations.
[2023-12-02 19:39] VITALS: BP 169/121; PULSE 86; RESP 21; O2SAT 93
[2023-12-02 19:51] LABS: Basophils # 0.1 10^3/uL (0.0-0.1); Basophils % 0.7 %; Eosinophils # 0.2 10^3/uL (0.0-0.8); Eosinophils % 1.3 %; Hematocrit 28.5 % (37-53); Lymphocytes # 1.1 10^3/uL (0.8-4.8); Mean Corpuscular HGB Conc 29.8 g/dL (30-55); Mean Corpuscular Hemoglobin 27.3 pg (27-33); Mean Corpuscular Volume 91.6 fl (82-101); Mean Platelet Volume 10.2 fL (7.4-10.4); Monocytes # 0.8 10^3/uL (0.2-0.9); Monocytes % 5.9 %; Neutrophils # 11.75 10^3/uL (1.8-7.7); Neutrophils % 83.5 %; Nucleated Red Blood Cells % 0 %; Platelet Count 456 10^3/cmm (157-399); Red Blood Count 3.11 10^6/uL (3.85-5.65); Red Cell Distribution Width 16.1 % (12.1-15.1); White Blood Count 14.07 10^3/uL (3.29-11.43)
[2023-12-02] MEDS: hyDRALAzine 20 mg/mL INJ 1 mL IVP (19:59)
[2023-12-02 20:14] LABS: Alanine Aminotransferase < 5 U/L (0-41); Albumin Level 2.7 g/dL (3.5-5.2); Alkaline Phosphatase 90 U/L (40-130); Anion Gap 22.6 (5-19); Aspartate Amino Transferase 10 U/L (0-40); Blood Urea Nitrogen 60 mg/dL (6-20); Calcium 8.9 mg/dL (8.5-10.5); Carbon Dioxide 25 mmol/L (22-29); Chloride 95 mmol/L (98-107); Creatinine Clr Calc Pharmacy 13.1385; Globulin 4.3 g/dL (1.3-4.6); Glomerular Filtration Rate 7.6 mL/min (90-130); Glucose 225 mg/dL (65-115); Magnesium 1.8 mg/dL (1.7-2.3); Osmolality Calculated 312 mOsm/kg (285-295); Phosphorus 6.3 mg/dL (2.5-4.5); Potassium 3.6 mmol/L (3.5-5.1); Sodium 139 mmol/L (136-145); Total Bilirubin 0.2 mg/dL (0.15-1.2)
--- NOTE | 2023-12-02 20:19 | ED_ITS ---
HPI - SOB/Dyspnea 2 General: Chief Complaint: Shortness of Breath/Dyspnea Stated Complaint: SOB Time Seen by Provider: 12/02/23 19:26 History of Present Illness: HPI Narrative: Patient presents to the ER with complaints of shortness of breath. He said it feels just hard to catch his breath. Patient does not use oxygen at home. Patient denies any cough cold fever chills overt sickness. Upon arrival patient was satting 92+ percent on room air. Patient is a dialysis patient with his home dialysis every night. Related Data Home Medications Medication Instructions Recorded Confirmed buspirone 5 mg tablet 5 mg PO TID 10/14/23 11/24/23 calcitriol 0.25 mcg capsule 0.25 mcg PO DAILY 10/14/23 11/24/23 carvedilol 25 mg tablet 25 mg PO DAILY 10/14/23 11/24/23 clonidine HCl 0.3 mg tablet 0.3 mg PO TID 10/14/23 11/24/23 furosemide 80 mg tablet 80 mg PO BID 10/14/23 11/24/23 gabapentin 100 mg capsule 100 mg PO TID 10/14/23 11/24/23 hydralazine 100 mg tablet 100 mg PO TID 10/14/23 11/24/23 insulin aspart U-100 100 unit/mL 15 unit SUBCUT TID 10/14/23 11/24/23 (3 mL) subcutaneous pen (Novolog FlexPen U-100 Insulin aspart) insulin glargine 100 unit/mL (3 10 unit SUBCUT QPM 10/14/23 11/24/23 mL) subcutaneous pen (Lantus Solostar U-100 Insulin) lisinopril 40 mg tablet 40 mg PO DAILY 10/14/23 11/24/23 megestrol 40 mg tablet 40 mg PO BID 10/14/23 11/24/23 mirtazapine 15 mg tablet (Remeron) 7.5 mg PO QPM 10/14/23 11/24/23 nitroglycerin 0.4 mg sublingual 0.4 mg sublingual Q5M PRN Chest 10/14/23 11/24/23 tablet (Nitrostat) Pain ondansetron HCl 4 mg tablet 4 mg PO Q6H PRN Nausea And Vomiting 10/14/23 11/24/23 pantoprazole 40 mg tablet,delayed 40 mg PO DAILY 10/14/23 11/24/23 release ropinirole 0.5 mg tablet 0.5 mg PO BEDTIME 10/14/23 11/24/23 sevelamer carbonate 800 mg tablet See Rx Instructions .Route .COMPLEX 10/14/23 11/24/23 sodium bicarbonate 325 mg tablet 325 mg PO DAILY 10/14/23 11/24/23 venlafaxine 75 mg capsule,extended 150 mg PO TID 10/14/23 11/24/23 release 24 hr vit B,C-folic ac 800 mcg-zinc 12.5 1 tab PO DAILY 10/14/23 11/24/23 mg-selen-D3 2,000 unit-vit E tablet (RenaPlex-D) Previous Rx's Medication Instructions Recorded aspirin 81 mg capsule 81 mg PO DAILY #90 caps 10/15/23 Cam boot to right #1 ea 12/02/23 Allergies Allergy/AdvReac Type Severity Reaction Status Date / Time No Known Allergies Allergy Verified 11/24/23 15:22 Review of Systems 2 General: Reports: 10 or more systems reviewed and unremarkable except in HPI and below PFSH ED 2 PFSH: Medical History Restless leg syndrome Peritonitis CAD (coronary artery disease) Depression End-stage renal disease on peritoneal dialysis Anemia Surgical History Hx of CABG Social History Smoking and tobacco/nicotine status: unknown if used tobacco/nicotine Alcohol intake: never Substance/Drug Use: current Other substance/drug use details: Medical marijuana Physical Exam 2 Const: COMMON NORMALS: no acute distress, average body habitus, patient oriented x3, no limitations, healthy appearing, alert and well nourished HENMT: COMMON NORMALS: normocephalic, atraumatic, hearing grossly normal bilaterally, external ears normal, Normal external nose present and moist oral mucous membranes HEAD & SCALP: normocephalic and atraumatic NOSE: Normal external nose present EXTERNAL EAR: Yes external ears normal Neck/C-Spine: COMMON NORMALS: no JVD Chest: COMMONS NORMALS: normal inspection of the chest and normal palpation of entire chest wall Resp: COMMON NORMALS: normal respiratory effort, No retractions, No use of accessory muscles and clear to auscultation bilaterally AUSCULTATION: clear to auscultation bilaterally Cardio: COMMON NORMALS: no JVD, regular rate, regular rhythm, S1 normal heart sound present, S2 normal heart sound present, No gallops present (Cardio), No clicks present (Cardio), No murmurs present (Cardio) and No rub (Cardio) R ATE: regular rate RHYTHM: regular rhythm HEART SOUNDS: S1 normal heart sound present and S2 normal heart sound present GI: COMMON NORMALS: Normal to inspection, nondistended, normoactive bowel sounds present, Soft to palpation, non-tender, No hepatosplenomegaly present and no masses PALPATION: Yes Soft to palpation and Yes No hepatosplenomegaly present Neuro: COMMON NORMALS: patient oriented x3 SENSORIUM/ORIENTATION: Yes alert Course 2 Vital Signs: Vital signs: Vital Signs Temperature 98 F 12/02/23 19:27 Pulse Rate 91 12/02/23 21:05 Respiratory Rate 21 H 12/02/23 21:05 Blood Pressure 162/136 12/02/23 21:05 Pulse Oximetry 96 12/02/23 21:05 MDM - SOB/Dyspnea Medical Decision Making Lab work and x-ray was obtained. These was discussed with the patient. They were stable for the patient. Patient did not require any oxygen during his stay here. Patient be discharged home. Medical Records I reviewed the patient's medical records. Lab Data I reviewed the patient's lab results. 12/02/23 19:30 12/02/23 19:30 Labs/Radiology: Radiology Impressions Chest X-Ray 12/02/23 19:36 IMPRESSION: Mild bibasilar atelectasis. No focal consolidations. Laboratory Results WBC 14.07 10^3/uL (3.29-11.43) H 12/02/23 19:30 RBC 3.11 10^6/uL (3.85-5.65) L 12/02/23 19:30 Hgb 8.50 g/dL (11.27-16.99) L 12/02/23 19:30 Hct 28.5 % (37-53) L 12/02/23 19:30 MCV 91.6 fl (82-101) 12/02/23 19:30 MCH 27.3 pg (27-33) 12/02/23 19:30 MCHC 29.8 g/dL (30-55) L 12/02/23 19:30 RDW 16.1 % (12.1-15.1) H 12/02/23 19:30 Plt Count 456 10^3/cmm (157-399) H 12/02/23 19:30 MPV 10.2 fL (7.4-10.4) 12/02/23 19:30 Neut % (Auto) 83.5 % 12/02/23 19:30 Lymph % (Auto) 8.0 % 12/02/23 19:30 [place] % (Auto) 5.9 % 12/02/23 19:30 Eos % (Auto) 1.3 % 12/02/23 19:30 Baso % (Auto) 0.7 % 12/02/23 19:30 Neut # (Auto) 11.75 10^3/uL (1.8-7.7) H 12/02/23 19:30 Lymph # (Auto) 1.1 10^3/uL (0.8-4.8) 12/02/23 19:30 [place] # (Auto) 0.8 10^3/uL (0.2-0.9) 12/02/23 19:30 Eos # (Auto) 0.2 10^3/uL (0.0-0.8) 12/02/23 19:30 Baso # (Auto) 0.1 10^3/uL (0.0-0.1) 12/02/23 19: Nucleated RBC % (auto) 0 % 12/02/23 19: Nucleated RBCs # 0.0 /100WBC 12/02/23 19:30 Sodium 139 mmol/L (136-145) 12/02/23 19:30 Potassium 3.6 mmol/L (3.5-5.1) 12/02/23 19:30 Chloride 95 mmol/L (98-107) L 12/02/23 19:30 Carbon Dioxide 25 mmol/L (22-29) 12/02/23 19:30 Anion Gap 22.6 (5-19) H 12/02/23 19:30 BUN 60 mg/dL (6-20) H 12/02/23 19:30 Creatinine 7.8 mg/dL (0.7-1.2) H* 12/02/23 19:30 GFR Calculation 7.6 mL/min (90-130) L 12/02/23 19:30 Glucose 225 mg/dL (65-115) H 12/02/23 19:30 Calculated Osmolality 312 mOsm/kg (285-295) H 12/02/23 19:30 Calcium 8.9 mg/dL (8.5-10.5) 12/02/23 19:30 Phosphorus 6.3 mg/dL (2.5-4.5) H 12/02/23 19:30 Magnesium 1.8 mg/dL (1.7-2.3) 12/02/23 19:30 Total Bilirubin 0.2 mg/dL (0.15-1.2) 12/02/23 19:30 AST 10 U/L (0-40) 12/02/23 19:30 ALT < 5 U/L (0-41) 12/02/23 19:30 Alkaline Phosphatase 90 U/L (40-130) 12/02/23 19:30 Total Protein 7.0 g/dL (6.6-8.7) 12/02/23 19:30 Albumin 2.7 g/dL (3.5-5.2) L 12/02/23 19:30 Globulin 4.3 g/dL (1.3-4.6) 12/02/23 19:30 All radiology interpretation(s) finalized by discharge Discharge Plan Discharge Patient Disposition: Home Clinical Impression: Breath shortness Condition: Stable Prescriptions: No Action (DME) Cam boot to right See Rx Instructions .Route .MEDSUPPLY Qty: 1 0RF Rx Instructions: As directed buspirone 5 mg tablet 5 mg PO TID carvedilol 25 mg Tablet 25 mg PO DAILY Rx Instructions: must administer with a meal/food venlafaxine 75 mg capsule,extended release 24hr 150 mg PO TID ondansetron HCl 4 mg tablet 4 mg PO Q6H PRN (Reason: Nausea And Vomiting) clonidine HCl 0.3 mg Tablet 0.3 mg PO TID furosemide 80 mg Tablet 80 mg PO BID hydralazine 100 mg tablet 100 mg PO TID pantoprazole 40 mg tablet,delayed release (DR/EC) 40 mg PO DAILY ropinirole 0.5 mg tablet 0.5 mg PO BEDTIME megestrol 40 mg Tablet 40 mg PO BID nitroglycerin [Nitrostat] 0.4 mg Tablet, Sublingual 0.4 mg SUBLINGUAL Q5M PRN (Reason: Chest Pain) Rx Instructions: do not exceed 3 doses per episode mirtazapine [Remeron] 15 mg Tablet 7.5 mg PO QPM gabapentin 100 mg capsule 100 mg PO TID lisinopril 40 mg Tablet 40 mg PO DAILY calcitriol 0.25 mcg Capsule 0.25 mcg PO DAILY insulin aspart U-100 [Novolog FlexPen U-100 Insulin] 100 unit/mL (3 mL) Insulin Pen 15 unit SUBCUT TID insulin glargine [Lantus Solostar U-100 Insulin] 100 unit/mL (3 mL) Insulin Pen 10 unit SUBCUT QPM sevelamer carbonate 800 mg tablet See Rx Instructions .ROUTE .COMPLEX Rx Instructions: TAKE 2 TABLETS BY MOUTH TWICE DAILY WITH MEAL AND 1 TABLET TWICE DAILY WITH SNACKS FOR TOTAL OF 6 TABLETS DAILY. RenaPlex-D 800 mcg-12.5 mg -2,000 unit Tablet 1 tab PO DAILY sodium bicarbonate 325 mg Tablet 325 mg PO DAILY aspirin 81 mg capsule 81 mg PO DAILY Qty: 90 0RF Discharge Orders: Discharge ED (Routine); Ordered 12/02/23 Ordered By: [place] Referrals: Yaniv Moe MD [Primary Care Provider] - 1 week Patient Instructions: Shortness of Breath (ED) Activity Restrictions/Additional Instructions: Thank you for choosing [facility] for your healthcare needs today. Please realize that you were seen in the emergency department and that we are providing you with an emergency medical screening exam and this may not be a complete and all exclusive of all testing and/or medical workup we may need to determine your element or severity of your illness. It is very important that you follow-up as instructed with your primary care provider or specialist for the additional evaluation and to discuss your medical treatment plan. You may return to the emergency department should you have concerns or if your condition changes or worsens in any way. Coding Level of Care Code ED Foot Orthopedist for Monik Riley
[2023-12-02 21:05] VITALS: BP 162/136; PULSE 91; RESP 21; O2SAT 96
[2023-12-02 21:51] VITALS: BP 181/126; PULSE 91; RESP 19; O2SAT 96
== END 2023-12-02 19:40 | disposition home or self-care (01) ==
PROVIDERS: Emergency Provider Emergency Medicine; PCP Family Medicine
DX: R06.02 Shortness of breath (principal); Z79.82 Long term (current) use of aspirin; Z79.4 Long term (current) use of insulin; I25.10 Atherosclerotic heart disease of native coronary artery without angina pectoris; N18.6 End stage renal disease; Z99.2 Dependence on renal dialysis; Z95.1 Presence of aortocoronary bypass graft
CPT/HCPCS: 71045; 80053; 83735; 84100; 85025; 96374; 99284; J0360

== ENCOUNTER → 2023-12-22 14:00 | Outpatient (BNVA) | payer MEDICARE, SELFPAY | PROVIDERS: PCP Family Medicine; Visit Provider Podiatrist Foot & Ankle Surgery | DX: Z98.890 Other specified postprocedural states (principal); E11.42 Type 2 diabetes mellitus with diabetic polyneuropathy; N18.6 End stage renal disease; Z99.2 Dependence on renal dialysis; Z79.4 Long term (current) use of insulin | CPT/HCPCS: 73610; 99024 ==

== ENCOUNTER 2024-01-16 15:56 | Emergency (ER) | payer MEDICARE, SELFPAY ==
[2024-01-16 16:25] VITALS: PULSE 105; RESP 18; TEMP 36.8; O2SAT 99; BMI 19.3
[2024-01-16 18:59] VITALS: BP 131/89; PULSE 90; RESP 16; O2SAT 97
[2024-01-16 19:23] LABS: Basophils % 0.3 %; Eosinophils % 0.2 %; Hematocrit 30.9 % (37-53); Lymphocytes # 0.5 10^3/uL (0.8-4.8); Lymphocytes % 3.6 %; Mean Corpuscular HGB Conc 30.4 g/dL (30-55); Mean Corpuscular Hemoglobin 26.6 pg (27-33); Mean Corpuscular Volume 87.5 fl (82-101); Mean Platelet Volume 9.9 fL (7.4-10.4); Monocytes # 0.7 10^3/uL (0.2-0.9); Monocytes % 4.9 %; Neutrophils # 12.77 10^3/uL (1.8-7.7); Neutrophils % 90.6 %; Nucleated Red Blood Cells % 0 %; Platelet Count 341 10^3/cmm (157-399); Red Blood Count 3.53 10^6/uL (3.85-5.65); Red Cell Distribution Width 15.2 % (12.1-15.1); White Blood Count 14.09 10^3/uL (3.29-11.43)
[2024-01-16 19:42] LABS: Alanine Aminotransferase < 5 U/L (0-41); Alkaline Phosphatase 73 U/L (40-130); Aspartate Amino Transferase 7 U/L (0-40); Lactic Sepsis W/Reflex 0.9 mmol/L (0.5-2.2)
--- NOTE | 2024-01-16 19:44 | CTR_ITS ---
PROCEDURE INFORMATION: Exam: CT Abdomen And Pelvis Without Contrast Exam date and time: 01/16/2024 7:53 PM Age: 43 years old Clinical indication: Abdominal pain TECHNIQUE: Imaging protocol: Computed tomography of the abdomen and pelvis without contrast. Radiation optimization: All CT scans at this facility use at least one of these dose optimization techniques: automated exposure control; mA and/or kV adjustment per patient size (includes targeted exams where dose is matched to clinical indication); or iterative reconstruction. COMPARISON: CR (CHEST, ) 12/02/2023 7:54 PM RADIATION DOSE METRICS: Total DLP (mGy-cm): 618 FINDINGS: Tubes, catheters and devices: There is a percutaneous peritoneal dialysis catheter coiled in the pelvis. Vkkwjevw-[id number] amount of free simple fluid in the abdomen and pelvis. Coronary arteries: Coronary arterial atherosclerotic calcifications are present. Liver: Cirrhotic liver. Gallbladder and biliary ducts: Normal. No calcified stones. No ductal dilation. Pancreas: Normal. No ductal dilation. Spleen: Normal. No splenomegaly. Adrenal glands: Normal. No mass. Kidneys and ureters: Normal. No hydronephrosis. Stomach and bowel: Unremarkable. No obstruction. No mucosal thickening. Appendix: No evidence of appendicitis. Intraperitoneal space: See Tubes, catheters and devices finding. 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 Severe atherosclerotic disease of the abdominal aorta and iliac arteries. Lymph nodes: Unremarkable. No enlarged lymph nodes. Urinary bladder: Unremarkable as visualized. Reproductive: Unremarkable as visualized. Bones/joints: Severe compression deformity of the left side of the L1 vertebral body, age indeterminate. Soft tissues: Unremarkable. CT/CT abdomen pelvis con [id number] IMPRESSION: 1. There is a percutaneous peritoneal dialysis catheter coiled in the pelvis. Uejcyzxo-vo-jcqxz amount of free simple fluid in the abdomen and pelvis. 2. No bowel obstruction. 3. The appendix images normally. 4. 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 Severe atherosclerotic disease of the abdominal aorta and iliac arteries.
--- NOTE | 2024-01-16 19:45 | ED_ITS ---
HPI - Abdominal Pain 2 General: Chief Complaint: Abdominal Pain Stated Complaint: abd pain Time Seen by Provider: 01/16/24 18:49 History of Present Illness: 43-year-old male with history of end-sta ge renal disease on peritoneal dialysis who presents the emergency room with right lower quadrant abdominal pain. He says he has been being treated for peritonitis with antibiotics. He says this is different that when he has peritonitis it usually hurts diffusely and today it is hurting just in his right lower quadrant. No nausea or vomiting. Normal bowel movements. No dysuria. No altered mental status. No fevers. Related Data Home Medications Medication Instructions Recorded Confirmed buspirone 5 mg tablet 5 mg PO TID 10/14/23 12/22/23 calcitriol 0.25 mcg capsule 0.25 mcg PO DAILY 10/14/23 12/22/23 carvedilol 25 mg tablet 25 mg PO DAILY 10/14/23 12/22/23 clonidine HCl 0.3 mg tablet 0.3 mg PO TID 10/14/23 12/22/23 furosemide 80 mg tablet 80 mg PO BID 10/14/23 12/22/23 gabapentin 100 mg capsule 100 mg PO TID 10/14/23 12/22/23 hydralazine 100 mg tablet 100 mg PO TID 10/14/23 12/22/23 insulin aspart U-100 100 unit/mL 15 unit SUBCUT TID 10/14/23 12/22/23 (3 mL) subcutaneous pen (Novolog FlexPen U-100 Insulin aspart) insulin glargine 100 unit/mL (3 10 unit SUBCUT QPM 10/14/23 12/22/23 mL) subcutaneous pen (Lantus Solostar U-100 Insulin) lisinopril 40 mg tablet 40 mg PO DAILY 10/14/23 12/22/23 megestrol 40 mg tablet 40 mg PO BID 10/14/23 12/22/23 mirtazapine 15 mg tablet (Remeron) 7.5 mg PO QPM 10/14/23 12/22/23 nitroglycerin 0.4 mg sublingual 0.4 mg sublingual Q5M PRN Chest 10/14/23 12/22/23 tablet (Nitrostat) Pain ondansetron HCl 4 mg tablet 4 mg PO Q6H PRN Nausea And Vomiting 10/14/23 12/22/23 pantoprazole 40 mg tablet,delayed 40 mg PO DAILY 10/14/23 12/22/23 release ropinirole 0.5 mg tablet 0.5 mg PO BEDTIME 10/14/23 12/22/23 sevelamer carbonate 800 mg tablet See Rx Instructions .Route .COMPLEX 10/14/23 12/22/23 sodium bicarbonate 325 mg tablet 325 mg PO DAILY 10/14/23 12/22/23 venlafaxine 75 mg capsule,extended 150 mg PO TID 10/14/23 12/22/23 release 24 hr vit B,C-folic ac 800 mcg-zinc 12.5 1 tab PO DAILY 10/14/23 12/22/23 mg-selen-D3 2,000 unit-vit E tablet (RenaPlex-D) Previous Rx's Medication Instructions Recorded aspirin 81 mg capsule 81 mg PO DAILY #90 caps 10/15/23 Cam boot to right #1 ea 12/02/23 Allergies Allergy/AdvReac Type Severity Reaction Status Date / Time No Known Allergies Allergy Verified 01/16/24 16:29 Review of Systems 2 Narrative: Constitutional symptoms: Negative except as documented in HPI. Skin symptoms: Negative except as documented in HPI. Eye symptoms: Negative except as documented in HPI. ENMT symptoms: Negative except as documented in HPI. Respiratory symptoms: Negative except as documented in HPI. Cardiovascular symptoms: Negative except as documented in HPI. Gastrointestinal symptoms: Negative except as documented in HPI. Genitourinary symptoms: Negative except as documented in HPI. Musculoskeletal symptoms: Negative except as documented in HPI. Neurologic symptoms: Negative except as documented in HPI. Psychiatric symptoms: Negative except as documented in HPI. Endocrine symptoms: Negative except as documented in HPI. PFSH ED 2 PFSH: Medical History Restless leg syndrome Peritonitis CAD (coronary artery disease) Depression End-stage renal disease on peritoneal dialysis Anemia Surgical History Hx of CABG Social History Smoking and tobacco/nicotine status: unknown if used tobacco/nicotine Alcohol intake: never Substance/Drug Use: current Other substance/drug use details: Medical marijuana Physical Exam 2 Narrative: EXAM NARRATIVE: General: Alert, no acute distress. Skin: Warm, dry. Head: Normocephalic, atraumatic. Neck: Supple, trachea midline. Eye: Extraocular movements are intact. Ears, nose, mouth and throat: mucosa moist. Cardiovascular: Regular, Normal peripheral perfusion. Respiratory: Lungs are clear to auscultation, respirations are non-labored, breath sounds are equal, Symmetrical chest wall expansion. Gastrointestinal: Soft, some tenderness in the right lower quadrant, Non distended Musculoskeletal: Normal ROM, no deformity. Neurological: Alert and oriented, No focal neurological deficit observed. Psychiatric: Cooperative, appropriate mood & affect. Course 2 Vital Signs: Vital signs: Vital Signs Temperature 98.3 F 01/16/24 16:25 Pulse Rate 73 01/16/24 21:11 Respiratory Rate 16 01/16/24 21:11 Blood Pressure 153/110 01/16/24 21:11 Pulse Oximetry 98 01/16/24 21:11 Oxygen Delivery Me thod Room Air 01/16/24 21:11 MDM - Abdominal Pain Medical Decision Making Medical decision making: Differential diagnosis for this patient with right lower quadrant abdominal pain including but not limited to and based on the above HPI, review of systems and physical exam: Ureterolithiasis. Urinary tract infection. Appendicitis. colitis. small bowel obstruction. Crohn's flare. Pancreatitis. Cholelithiasis or cholecystitis. Hepatitis. Diverticulitis. Constipation. ovarian cyst. ovarian torsion Workup: Orders were placed to evaluate differential diagnosis based on the above differential, HPI and exam: Lab Review: Laboratory results were reviewed and interpreted by myself the emergency room physician. Mild leukocytosis with a white count of 14. Stable hemoglobin at 9.4. BUN and creatinine are 43 and 6.4 which would be expected in this peritoneal dialysis patient. Sugar is a bit high at 247. Sodium little low at 129 which when corrected would be more at his baseline. Potassium is mildly low at 2.9. With him being a dialysis patient I am not going to replace the potassium at this time. CT of the abdomen pelvis: Peritoneal dialysis catheter is present. No bowel obstruction. Normal appendix. He does have some SMA atherosclerotic disease. Symptoms today are not consistent with bowel ischemia. This was reviewed and interpreted by myself the emergency room physician. I also reviewed the radiology report. I reviewed the patient's medical record Reexamination: Patient remained stable. No increased work of breathing. No altered mental status. No focal motor deficits. Assessment and plan: Abdominal pain End-stage renal disease on peritoneal dialysis Peritonitis ?Patient is being treated for peritonitis and seems to be improving as far as that standpoint goes. Unclear cause of his right lower quadrant pain. This is being treated with some morphine and Zofran here in the emergency room. - Discharged home - Discussed findings and plan with patient. Answered any questions. - All laboratory values were reviewed and interpreted personally by myself, the ER physician - All imaging was reviewed and interpreted personally by myself, the ER physician. - Evaluation and treatment of this problem were appropriate in the emergency setting Lab Data 01/16/24 19:15 01/16/24 19:15 Labs/Radiology: Radiology Impressions Abdomen/Pelvis CT 01/16/24 19:44 IMPRESSION: 1. There is a percutaneous peritoneal dialysis catheter coiled in the pelvis. [id number] amount of free simple fluid in the abdomen and pelvis. 2. No bowel obstruction. 3. The appendix images normally. 4. 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 Severe atherosclerotic disease of the abdominal aorta and iliac arteries. Laboratory Results WBC 14.09 10^3/uL (3.29-11.43) H 01/16/24 19:15 RBC 3.53 10^6/uL (3.85-5.65) L 01/16/24 19:15 Hgb 9.40 g/dL (11.27-16.99) L 01/16/24 19:15 Hct 30.9 % (37-53) L 01/16/24 19:15 MCV 87.5 fl (82-101) 01/16/24 19:15 MCH 26.6 pg (27-33) L 01/16/24 19:15 MCHC 30.4 g/dL (30-55) 01/16/24 19:15 RDW 15.2 % (12.1-15.1) H 01/16/24 19:15 Plt Count 341 10^3/cmm (157-399) 01/16/24 19:15 MPV 9.9 fL (7.4-10.4) 01/16/24 19:15 Neut % (Auto) 90.6 % 01/16/24 19:15 Lymph % (Auto) 3.6 % 01/16/24 19:15 [place] % (Auto) 4.9 % 01/16/24 19:15 Eos % (Auto) 0.2 % 01/16/24 19:15 Baso % (Auto) 0.3 % 01/16/24 19:15 Neut # (Auto) 12.77 10^3/uL (1.8-7.7) H 01/16/24 19:15 Lymph # (Auto) 0.5 10^3/uL (0.8-4.8) L 01/16/24 19:15 [place] # (Auto) 0.7 10^3/uL (0.2-0.9) 01/16/24 19:15 Eos # (Auto) 0.0 10^3/uL (0.0-0.8) 01/16/24 19:15 Baso # (Auto) 0.0 10^3/uL (0.0-0.1) 01/16/24 19:15 Nucleated RBC % (auto) 0 % 01/16/24 19:15 Nucleated RBCs # 0.0 /100WBC 01/16/24 19:15 Sodium 129 mmol/L (136-145) L 01/16/24 19:15 Potassium 2.9 mmol/L (3.5-5.1) L 01/16/24 19:15 Chloride 91 mmol/L (98-107) L 01/16/24 19:15 Carbon Dioxide 27 mmol/L (22-29) 01/16/24 19:15 Anion Gap 13.9 (5-19) 01/16/24 19:15 BUN 43 mg/dL (6-20) H 01/16/24 19:15 Creatinine 6.4 mg/dL (0.7-1.2) H* 01/16/24 19:15 GFR Calculation 9.5 mL/min (90-130) L 01/16/24 19:15 Glucose 247 mg/dL (65-115) H 01/16/24 19:15 Calculated Osmolality 287 mOsm/kg (285-295) 01/16/24 19:15 Lactic Acid 0.9 mmol/L (0.5-2.2) 01/16/24 19:15 Calcium 8.4 mg/dL (8.5-10.5) L 01/16/24 19:15 Total Bilirubin 0.2 mg/dL (0.15-1.2) 01/16/24 19:15 AST 7 U/L (0-40) 01/16/24 19:15 ALT < 5 U/L (0-41) 01/16/24 19:15 Alkaline Phosphatase 73 U/L (40-130) 01/16/24 19:15 C-Reactive Protein 203.4 mg/L (0.0-4.9) H 01/16/24 19:15 Total Protein 6.6 g/dL (6.6-8.7) 01/16/24 19:15 Albumin 2.2 g/dL (3.5-5.2) L 01/16/24 19:15 Globulin 4.4 g/dL (1.3-4.6) 01/16/24 19:15 All radiology interpretation(s) finalized by discharge Discharge Plan Discharge Patient Disposition: Home Clinical Impression: Abdominal pain, End-stage renal disease on peritoneal dialysis Condition: Stable Prescriptions: No Action (DME) Cam boot to right See Rx Instructions .Route .MEDSUPPLY Qty: 1 0RF Rx Instructions: As directed buspirone 5 mg tablet 5 mg PO TID carvedilol 25 mg Tablet 25 mg PO DAILY Rx Instructions: must administer with a meal/food venlafaxine 75 mg capsule,extended release 24hr 150 mg PO TID ondansetron HCl 4 mg tablet 4 mg PO Q6H PRN (Reason: Nausea And Vomiting) clonidine HCl 0.3 mg Tablet 0.3 mg PO TID furosemide 80 mg Tablet 80 mg PO BID hydralazine 100 mg tablet 100 mg PO TID pantoprazole 40 mg tablet,delayed release (DR/EC) 40 mg PO DAILY ropinirole 0.5 mg tablet 0.5 mg PO BEDTIME megestrol 40 mg Tablet 40 mg PO BID nitroglycerin [Nitrostat] 0.4 mg Tablet, Sublingual 0.4 mg SUBLINGUAL Q5M PRN (Reason: Chest Pain) Rx Instructions: do not exceed 3 doses per episode mirtazapine [Remeron] 15 mg Tablet 7.5 mg PO QPM gabapentin 100 mg capsule 100 mg PO TID lisinopril 40 mg Tablet 40 mg PO DAILY calcitriol 0.25 mcg Capsule 0.25 mcg PO DAILY insulin aspart U-100 [Novolog FlexPen U-100 Insulin] 100 unit/mL (3 mL) Insulin Pen 15 unit SUBCUT TID insulin glargine [Lantus Solostar U-100 Insulin] 100 unit/mL (3 mL) Insulin Pen 10 unit SUBCUT QPM sevelamer carbonate 800 mg tablet See Rx Instructions .ROUTE .COMPLEX Rx Instructions: TAKE 2 TABLETS BY MOUTH TWICE DAILY WITH MEAL AND 1 TABLET TWICE DAILY WITH SNACKS FOR TOTAL OF 6 TABLETS DAILY. RenaPlex-D 800 mcg-12.5 mg -2,000 unit Tablet 1 tab PO DAILY sodium bicarbonate 325 mg Tablet 325 mg PO DAILY aspirin 81 mg capsule 81 mg PO DAILY Qty: 90 0RF Discharge Orders: Discharge ED (Routine); Ordered 01/16/24 Ordered By: Marixa Duran Referrals: Yaniv Moe MD [Primary Care Provider] - Discharge Diet: Usual diet Discharge Activity: Increase activity as tolerated Patient Instructions: Abdominal Pain (ED) Activity Restrictions/Additional Instructions: Thank you for choosing [facility] for your healthcare needs today. Please realize this is an emergency room and that we are providing you with a medical screening exam and this may not be complete and all inclusive of all the testing and or work up that you may need to determine your ailment or severity of your illness. You have been screened and evaluated and felt safe for discharge. Health conditions do change or evolve sometimes and as such it is important that you follow up with your Primary Doctor to be re checked, 3-5 days is a general good time frame for follow up. You are always welcome to return to the ED for re assessment if your symptoms are worsening or you have new concerns Coding Level of Care Code ED Technology Officer for Monik Riley
[2024-01-16 19:55] LABS: Blood Urea Nitrogen 43 mg/dL (6-20); Calcium 8.4 mg/dL (8.5-10.5); Carbon Dioxide 27 mmol/L (22-29); Creatinine Clr Calc Pharmacy 15.1053; Glomerular Filtration Rate 9.5 mL/min (90-130); Total Bilirubin 0.2 mg/dL (0.15-1.2); Total Protein 6.6 g/dL (6.6-8.7)
[2024-01-16 19:57] LABS: Albumin Level 2.2 g/dL (3.5-5.2); Anion Gap 13.9 (5-19); C Reactive Protein 203.4 mg/L (0.0-4.9); Chloride 91 mmol/L (98-107); Globulin 4.4 g/dL (1.3-4.6); Glucose 247 mg/dL (65-115); Osmolality Calculated 287 mOsm/kg (285-295); Sodium 129 mmol/L (136-145)
[2024-01-16 19:58] LABS: Potassium 2.9 mmol/L (3.5-5.1)
[2024-01-16 21:11] VITALS: BP 153/110; PULSE 73; RESP 16; O2SAT 98
[2024-01-16 21:40] VITALS: BP 141/93; PULSE 72; RESP 16; O2SAT 98
[2024-01-16] MEDS: HYDROcodone-acetaminophen 5-325 mg Tablet 1 TAB PO (21:44)
[2024-01-16 22:06] VITALS: BP 147/102; PULSE 71; RESP 16; O2SAT 100
== END 2024-01-16 22:04 | disposition home or self-care (01) ==
PROVIDERS: Emergency Provider Emergency Medicine; PCP Family Medicine
DX: R10.31 Right lower quadrant pain (principal); N18.6 End stage renal disease; Z99.2 Dependence on renal dialysis; I25.10 Atherosclerotic heart disease of native coronary artery without angina pectoris; Z95.1 Presence of aortocoronary bypass graft; Z79.82 Long term (current) use of aspirin; Z79.4 Long term (current) use of insulin
CPT/HCPCS: 36415; 74176; 80053; 83605; 85025; 86140; 99284

== ENCOUNTER 2024-01-20 10:49 | Emergency (ER) | payer MEDICARE, SELFPAY ==
[2024-01-20 11:18] VITALS: BP 168/94; PULSE 84; RESP 20; TEMP 35.8; O2SAT 100; BMI 19.2
--- NOTE | 2024-01-20 11:58 | ED_ITS ---
HPI - General Adult 2 General: Chief complaint: General Medical Stated complaint: infection, hurting (Juan [facility] Time Seen by Provider: 01/20/24 11:55 History of Present Illness: This is a 43-year-old male in very poor state of health who presents by private vehicle with his . explains that they were called by the chief sustainability officer's nurse today and told that he has a fungal infection in his peritoneal dialysis catheter and needed to go straight to [place]. (Patient gets most of his care through [facility].) reports she brought him here and asked for us to call an ambulance right when they checked in. Unfortunately, I had to explain that we had to have a workup and diagnosis in order to secure transfer. Additionally, I explained that we need to determine what level of care he needs whether that be going straight to the emergency department or being admitted to the ICU, or somewhere in between. I also explained that [facility] may not have beds. Concerning his history of present illness. He has had abdominal pain for over a week. He was seen in the emergency department and was ultimately started on vancomycin and his PD fluid. His last PD dialysis was overnight on 01/17 going into 01/18. Patient has severe chronic atrophy and chronic illness with inability to walk. He also suffers from chronic anemia and appears extremely pale today. says he has been drinking but has not wanted to eat. He has barely left bed in the last 3 days. Patient and I discussed his CODE STATUS; he elects for full code. reports he has been on fluconazole orally over the last few days. However based on her understanding, this is not sufficient for his fungal infection. They recommended that he have his PD catheter removed and be treated for the fungal infection. This would require him to have a temporary hemodialysis catheter. He does not have a current hemodialysis catheter. Last urination was yesterday. Last bowel movement was 4 days ago. Associated symptoms: Deny chest pain, dyspnea, headache(s), nausea, rash or syncope Related Data Home Medications Medication Instructions Recorded Confirmed buspirone 5 mg tablet 5 mg PO TID 10/14/23 01/20/24 calcitriol 0.25 mcg capsule 0.25 mcg PO DAILY 10/14/23 01/20/24 carvedilol 25 mg tablet 25 mg PO DAILY 10/14/23 01/20/24 clonidine HCl 0.3 mg tablet 0.3 mg PO TID 10/14/23 01/20/24 furosemide 80 mg tablet 80 mg PO BID 10/14/23 01/20/24 gabapentin 100 mg capsule 100 mg PO TID 10/14/23 01/20/24 hydralazine 100 mg tablet 100 mg PO TID 10/14/23 01/20/24 lisinopril 40 mg tablet 40 mg PO DAILY 10/14/23 01/20/24 megestrol 40 mg tablet 40 mg PO BID 10/14/23 01/20/24 mirtazapine 15 mg tablet (Remeron) 7.5 mg PO QPM 10/14/23 01/20/24 nitroglycerin 0.4 mg sublingual 0.4 mg sublingual Q5M PRN Chest 10/14/23 01/20/24 tablet (Nitrostat) Pain ondansetron HCl 4 mg tablet 4 mg PO Q6H PRN Nausea And Vomiting 10/14/23 01/20/24 pantoprazole 40 mg tablet,delayed 40 mg PO DAILY 10/14/23 01/20/24 release ropinirole 0.5 mg tablet 0.5 mg PO BEDTIME 10/14/23 01/20/24 sevelamer carbonate 800 mg tablet See Rx Instructions .Route .COMPLEX 10/14/23 01/20/24 venlafaxine 75 mg capsule,extended 150 mg PO TID 10/14/23 01/20/24 release 24 hr vit B,C-folic ac 800 mcg-zinc 12.5 1 tab PO DAILY 10/14/23 01/20/24 mg-selen-D3 2,000 unit-vit E tablet (RenaPlex-D) Previous Rx's Medication Instructions Recorded aspirin 81 mg capsule 81 mg PO DAILY #90 caps 10/15/23 Cam boot to right #1 ea 12/02/23 Allergies Allergy/AdvReac Type Severity Reaction Status Date / Time No Known Allergies Allergy Verified 01/20/24 11:33 Review of Systems 2 General: Reports: 10 or more systems reviewed and unremarkable except in HPI and below Narrative: Decreased activity, abdominal pain, poor appetite, increase in chronic generalized weakness, intermittent trouble concentrating Const: Denies: fever(s) or chills Card: Denies: chest pain or syncope Resp: Denies: dyspnea, productive cough or non-productive cough GI: Denies: nausea or diarrhea : Denies: flank pain or dysuria Skin/Breast: Denies: rash Neuro: Denies: headache(s) PFSH ED 2 PFSH: Medical History Restless leg syndrome Peritonitis CAD (coronary artery disease) Depression End-stage renal disease on peritoneal dialysis Anemia Surgical History Hx of CABG Social History Smoking and tobacco/nicotine status: unknown if used tobacco/nicotine Alcohol intake: never Substance/Drug Use: current Other substance/drug use details: Medical marijuana Physical Exam 2 Narrative: EXAM NARRATIVE: Patient appears much older than stated age. He appears very malnourished. He has generalized significant atrophy. He is extremely pale. He has poor capillary refill. He has weak peripheral pulses. He has 3 healing wounds on his right lower extremity 1 near the ankle, heel, and foot. These do not appear infected. There is a scab on his left caballero that does not appear infected. He has a soft nondistended abdomen with a PD catheter in place. The external skin around the PD catheter appears normal. He has mild generalized abdominal tenderness without any overt peritonitis. His heart rate is normal. He has tacky mucous membranes. His sclera and conjunctiva are pale. He has diffuse severe muscle wasting Const: COMMON NORMALS: no limitations and alert EXAM LIMITATIONS: no altered mental status HENMT: COMMON NORMALS: normocephalic, atraumatic and external ears normal H EAD & SCALP: normocephalic and atraumatic EXTERNAL EAR: Yes external ears normal MOUTH: no muffled voice Eye: COMMON NORMALS: EOMs intact bilaterally, conjunctivae normal and no scleral icterus CONJUNCTIVA: Yes conjunctivae normal Neck/C-Spine: GENERAL: Yes normal visual inspection and Yes trachea midline Resp: COMMON NORMALS: normal respiratory effort, No use of accessory muscles and clear to auscultation bilaterally AUSCULTATION: clear to auscultation bilaterally GI: COMMON NORMALS: Soft to palpation PALPATION: Yes Soft to palpation and No Guarding due to palpation present (GI) Neuro: COMMON NORMALS: moves all extremities and no focal motor deficits S ENSORIUM/ORIENTATION: Yes alert SPEECH: speech normal Psych: COMMON NORMALS: mental status grossly normal, Normal thought process present, cooperative, normal affect and speech normal SPEECH: Yes normal speech THOUGHT PROCESS: Normal thought process present Skin: COMMON NORMALS: no jaundice Course 2 ED course: Discussed with Dr Rivera at 1228pm at [facility]. He has accepted the patient as long as he's stable for transport--I'm awaiting basic labs/EKG before I clear him for transport. 1251pm I have received a fax concerning the patient's microbiology. PD fluid that was collected on 10 resulted with rare white blood cells and no organisms on Gram stain. Gram stain from blood cultures obtained the same day shows yeast detected in the aerobic bottle only. This paperwork reports they have not yet received the yeast identification. Reevaluation(s): Reevaluation #1: I reviewed the patient's labs. He has uremia, hypoalbuminemia, increased anion gap metabolic acidosis with glucose less than 200, elevated white blood cell count, stable anemia, hypokalemia, hyponatremia, among other findings. We are going to give him a dose of micafungin 100 mg per ID recommendations. Patient can be transferred by ambulance to [facility]. Reevaluation #2: There were only 2 ALS trucks in the [facility]. We have 2 other patients being transferred from the emergency department ahead of this patient. It would likely be 8+ hours before patient could be transported. Patient does have [employer] insurance. I discussed with patient's and she is agreeable to air transport. Reevaluation #3: I've reviewed labs, ekg, vitals, and reassessed pt x3. Pt transferring to [facility] Consultations: Consultation #1: Quickly discussed this case via phone with Dr. Silva, infectious disease. She is recommended a single dose of micafungin at 100 mg IV. I appreciate the expertise and consultation. This has been ordered. No dose adjustment for dialysis on first dose at this time. Vital Signs: Vital signs: Vital Signs Temperature 96.5 F L 01/20/24 11:18 Pulse Rate 80 01/20/24 14:31 Respiratory Rate 20 H 01/20/24 11:18 Blood Pressure 133/93 01/20/24 14:31 Pulse Oximetry 99 10/11/24 14:31 Oxygen Delivery Me thod Room Air 01/20/24 11:18 MDM - General Adult Medical Decision Making This is a chronically ill 43-year-old male with reported fungal infection of his PD catheter and therefore probably also fungal peritonitis. Unfortunately, patient and had unreasonable expectations upon arrival of us calling an ambulance immediately. After explaining the process, they are willing for me to do a workup. They do want to go to [facility] assuming that they have beds available. I have begun a workup to look for significant acid-base disturbances, electrolyte abnormalities, dehydration. I will also obtain lactic acid and provide some initial IV fluids as the patient looks significantly dehydrated. He also looks extremely pale so I am going to add a type and screen. He reports he is not losing any blood but does not ever really recover from his anemia. The patient is full code. I have also requested information from the local nephrology center, [facility]. Since the patient has recently had PD fluid analysis earlier in the month and has reportedly had a culture that is already resulted, we will not repeat this at this time unless that information turns out to be inaccurate. Lab Data 01/20/24 12:24 01/20/24 12:24 Laboratory Results WBC 17.90 10^3/uL (3.29-11.43) H 01/20/24 12:24 RBC 3.91 10^6/uL (3.85-5.65) 01/20/24 12:24 Hgb 10.30 g/dL (11.27-16.99) L 01/20/24 12:24 Hct 35.8 % (37-53) L 01/20/24 12:24 MCV 91.6 fl (82-101) 01/20/24 12:24 MCH 26.3 pg (27-33) L 01/20/24 12:24 MCHC 28.8 g/dL (30-55) L 01/20/24 12:24 RDW 16.0 % (12.1-15.1) H 01/20/24 12:24 Plt Count 541 10^3/cmm (157-399) H 01/20/24 12:24 MPV 10.4 fL (7.4-10.4) 01/20/24 12:24 Neut % (Auto) 90.7 % 01/20/24 12:24 Lymph % (Auto) 4.1 % 01/20/24 12:24 [place] % (Auto) 3.5 % 01/20/24 12:24 Eos % (Auto) 0.8 % 01/20/24 12:24 Baso % (Auto) 0.2 % 01/20/24 12:24 Neut # (Auto) 16.23 10^3/uL (1.8-7.7) H 01/20/24 12:24 Lymph # (Auto) 0.7 10^3/uL (0.8-4.8) L 01/20/24 12:24 [place] # (Auto) 0.6 10^3/uL (0.2-0.9) 01/20/24 12:24 Eos # (Auto) 0.2 10^3/uL (0.0-0.8) 01/20/24 12:24 Baso # (Auto) 0.0 10^3/uL (0.0-0.1) 01/20/24 12:24 Nucleated RBC % (auto) 0.4 % 01/20/24 12:24 Nucleated RBCs # 0.1 /100WBC 01/20/24 12:24 PT 17.60 SECONDS (12.1-14.9) H 01/20/24 12:39 INR 1.40 (0.8-1.2) H 01/20/24 12:39 APTT 37.3 SECONDS (23.9-36.7) H 01/20/24 12:39 Sodium 131 mmol/L (136-145) L 01/20/24 12:24 Potassium 3.2 mmol/L (3.5-5.1) L 01/20/24 12:24 Chloride 89 mmol/L (98-107) L 01/20/24 12:24 Carbon Dioxide 25 mmol/L (22-29) 01/20/24 12:24 Anion Gap 20.2 (5-19) H 01/20/24 12:24 BUN 47 mg/dL (6-20) H 01/20/24 12:24 Creatinine 7.4 mg/dL (0.7-1.2) H* 01/20/24 12:24 GFR Calculation 8.1 mL/min (90-130) L 01/20/24 12:24 Glucose 197 mg/dL (65-115) H 01/20/24 12:24 Calculated Osmolality 290 mOsm/kg (285-295) 01/20/24 12:24 Lactic Acid 2.4 mmol/L (0.5-2.2) H 01/20/24 12:24 Calcium 8.5 mg/dL (8.5-10.5) 01/20/24 12:24 Phosphorus 5.8 mg/dL (2.5-4.5) H 01/20/24 12:24 Magnesium 1.8 mg/dL (1.7-2.3) 01/20/24 12:24 Total Bilirubin 0.3 mg/dL (0.15-1.2) 01/20/24 12:24 AST 5 U/L (0-40) 01/20/24 12:24 ALT < 5 U/L (0-41) 01/20/24 12:24 Alkaline Phosphatase 86 U/L (40-130) 01/20/24 12:24 C-Reactive Protein 337.1 mg/L (0.0-4.9) H 01/20/24 12:24 Total Protein 6.6 g/dL (6.6-8.7) 01/20/24 12:24 Albumin 1.9 g/dL (3.5-5.2) L 01/20/24 12:24 Globulin 4.7 g/dL (1.3-4.6) H 01/20/24 12:24 Blood Type AB Positive 01/20/24 12:31 Rho(D) Type Rh positive 01/20/24 12:31 Antibody Screen Negative 01/20/24 12:31 No radiology studies performed this visit EKG Data EKG 1: Interpretation: EP interpretation. EKG obtained at 1314. Sinus rhythm with sinus arrhythmia, atrial enlargement suggested, QRS 104 ms with incomplete left bundle branch block morphology, LVH pattern, abnormal T waves, no concerning ST segment elevation. Discharge Plan Discharge Patient Disposition: Xfer Short-Term Hosp Clinical Impression: Fungus infection in blood, Leukocytosis, Chronic uremia, ESRD (end stage renal disease) on dialysis, Hypokalemia, Hyperphosphatemia, Metabolic acidosis, increased anion gap Condition: Stable Referrals: Yaniv Moe MD [Primary Care Provider] - Coding Level of Care Code ED Secretary Office Clerk for Chg Fwd
[2024-01-20 12:32] VITALS: PULSE 78; O2SAT 96
[2024-01-20 12:32] LABS: Basophils % 0.2 %; Eosinophils # 0.2 10^3/uL (0.0-0.8); Eosinophils % 0.8 %; Hematocrit 35.8 % (37-53); Lymphocytes # 0.7 10^3/uL (0.8-4.8); Lymphocytes % 4.1 %; Mean Corpuscular HGB Conc 28.8 g/dL (30-55); Mean Corpuscular Hemoglobin 26.3 pg (27-33); Mean Corpuscular Volume 91.6 fl (82-101); Mean Platelet Volume 10.4 fL (7.4-10.4); Monocytes # 0.6 10^3/uL (0.2-0.9); Monocytes % 3.5 %; Neutrophils # 16.23 10^3/uL (1.8-7.7); Neutrophils % 90.7 %; Nucleated Red Blood Cells # 0.1 /100WBC; Nucleated Red Blood Cells % 0.4 %; Platelet Count 541 10^3/cmm (157-399); Red Blood Count 3.91 10^6/uL (3.85-5.65)
[2024-01-20] MEDS: lactated ringers 500 ML 999 ML IV (12:46)
[2024-01-20 12:52] LABS: Alanine Aminotransferase < 5 U/L (0-41); Albumin Level 1.9 g/dL (3.5-5.2); Alkaline Phosphatase 86 U/L (40-130); Anion Gap 20.2 (5-19); Aspartate Amino Transferase 5 U/L (0-40); Blood Urea Nitrogen 47 mg/dL (6-20); C Reactive Protein 337.1 mg/L (0.0-4.9); Calcium 8.5 mg/dL (8.5-10.5); Carbon Dioxide 25 mmol/L (22-29); Chloride 89 mmol/L (98-107); Creatinine Clr Calc Pharmacy 11.6054; Globulin 4.7 g/dL (1.3-4.6); Glomerular Filtration Rate 8.1 mL/min (90-130); Glucose 197 mg/dL (65-115); Magnesium 1.8 mg/dL (1.7-2.3); Osmolality Calculated 290 mOsm/kg (285-295); Phosphorus 5.8 mg/dL (2.5-4.5); Potassium 3.2 mmol/L (3.5-5.1); Sodium 131 mmol/L (136-145); Total Bilirubin 0.3 mg/dL (0.15-1.2); Total Protein 6.6 g/dL (6.6-8.7)
[2024-01-20 12:53] LABS: Lactic Sepsis W/Reflex 2.4 mmol/L (0.5-2.2)
[2024-01-20 13:00] VITALS: PULSE 76; O2SAT 99
[2024-01-20 13:09] LABS: Partial Thromboplastin Time 37.3 SECONDS (23.9-36.7)
--- NOTE | 2024-01-20 13:14 | ECG_ITS ---
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 Measurements Intervals Beals Rate: 77 P: 65 ND: 136 QRS: 60 QRSD: 104 T: 194 QT: 486 QTc: 552 Interpretive Statements SINUS RHYTHM WITH SINUS ARRHYTHMIA LEFT VENTRICULAR HYPERTROPHY AND ST-T CHANGE [VOLTAGE CRITERIA PLUS ST/T ABNORMALITY] POSSIBLE SEPTAL MYOCARDIAL INFARCTION , OF INDETERMINATE AGE [30 ms Q WAVE IN V1/V2] Compared to ECG 10/14/2023 16:48:43 Left ventricular hypertrophy now present ST (T wave) deviation now present Myocardial infarct finding still present Electronically Signed On 01-20-2024 22:30:43 CDT by Ursula Lyn M.D. [email or web address]
[2024-01-20] MEDS: micafungin 100 MG in sodium chloride 0.9% (plus) 100 ML IV (13:44)
[2024-01-20 14:16] LABS: Reflex Lactate Order REFLEX LACTIC ORDERD
[2024-01-20 14:31] VITALS: BP 133/93; PULSE 80; O2SAT 99
== END 2024-01-20 14:48 | disposition short-term general hospital (02) ==
PROVIDERS: Emergency Provider Emergency Medicine; PCP Family Medicine
DX: B48.8 Other specified mycoses (principal); D72.829 Elevated white blood cell count, unspecified; N18.6 End stage renal disease; Z99.2 Dependence on renal dialysis; E87.6 Hypokalemia; E83.39 Other disorders of phosphorus metabolism; E87.20 Acidosis, unspecified; I49.8 Other specified cardiac arrhythmias; I44.7 Left bundle-branch block, unspecified; I25.10 Atherosclerotic heart disease of native coronary artery without angina pectoris; Z95.1 Presence of aortocoronary bypass graft
CPT/HCPCS: 36415; 80053; 83605; 83735; 84100; 85025; 85610; 85730; 86140; 86850; 86900; 87040; 93005; 96374; 99285; J2248; J7120

== ENCOUNTER → 2024-02-06 14:45 | Outpatient (BNVA) | payer MEDICARE, SELFPAY | PROVIDERS: PCP Family Medicine; Visit Provider Podiatrist Foot & Ankle Surgery | DX: E11.42 Type 2 diabetes mellitus with diabetic polyneuropathy (principal); E11.22 Type 2 diabetes mellitus with diabetic chronic kidney disease; I12.0 Hypertensive chronic kidney disease with stage 5 chronic kidney disease or end stage renal disease; N18.6 End stage renal disease; Z99.2 Dependence on renal dialysis; E11.621 Type 2 diabetes mellitus with foot ulcer; L97.522 Non-pressure chronic ulcer of 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; Z98.890 Other specified postprocedural states | CPT/HCPCS: 99213 ==

== ENCOUNTER 2024-02-11 20:26 | Emergency (ER) | payer MEDICARE, SELFPAY ==
[2024-02-11 20:49] VITALS: BP 142/87; PULSE 73; RESP 16; TEMP 36.6; O2SAT 100; BMI 17.6
--- NOTE | 2024-02-11 21:04 | XRR_ITS ---
PROCEDURE INFORMATION: Exam: XR Chest Exam date and time: 02/11/2024 9:36 PM Age: 43 years old Clinical indication: Other: General weakness with anemia; Prior surgery; Surgery date: 6+ months; Surgery type: Cabg. Dialysis cath; Additional info: Weakness, recent hosp TECHNIQUE: Imaging protocol: Radiologic exam of the chest. Views: 1 view. COMPARISON: CR (CHEST, ) 12/02/2023 7:54 PM FINDINGS: Tubes, catheters and devices: Interval placement of large caliber double lumen right central line with tip over the proximal right atrium. Lungs: Unremarkable. No consolidation. Pleural spaces: Unremarkable. No pleural effusion. No pneumothorax. Heart/Mediastinum: Stable CABG procedure. Bones/joints: Unremarkable. XR/XR chest 1V [id number] IMPRESSION: 1. Stable CABG procedure. 2. Interval placement of large caliber double lumen right central line with tip over the proximal right atrium.
--- NOTE | 2024-02-11 21:05 | W.ED.RECABL ---
Documented by User: PHYLLIS Buckley 02/12/24 00:32 HPI - Recheck/Abnormal Lab/Rx General: Chief Complaint: Recheck/Abnormal Lab/Rx Stated Complaint: hemoglobin 6.6 dialysis sent Time Seen by Provider: 02/11/24 20:54 History of Present Illness: Jose Guadalupe Tello is a 43-year-old male that presents to the emergency department with weakness and reported low hemoglobin. Patient is a hemodialysis patient and undergoes treatment Tuesday and Tuesday. Today his hemoglobin returned at 6.6. Patient is chronically ill-appearing. He is very pale, jaundiced almost Related Data Home Medications Medication Instructions Recorded Confirmed buspirone 5 mg tablet 5 mg PO TID 10/14/23 02/06/24 calcitriol 0.25 mcg capsule 0.25 mcg PO DAILY 10/14/23 02/06/24 carvedilol 25 mg tablet 25 mg PO DAILY 10/14/23 02/06/24 clonidine HCl 0.3 mg tablet 0.3 mg PO TID 10/14/23 02/06/24 furosemide 80 mg tablet 80 mg PO BID 10/14/23 02/06/24 gabapentin 100 mg capsule 100 mg PO TID 10/14/23 02/06/24 hydralazine 100 mg tablet 100 mg PO TID 10/14/23 02/06/24 lisinopril 40 mg tablet 40 mg PO DAILY 10/14/23 02/06/24 megestrol 40 mg tablet 40 mg PO BID 10/14/23 02/06/24 mirtazapine 15 mg tablet (Remeron) 7.5 mg PO QPM 10/14/23 02/06/24 nitroglycerin 0.4 mg sublingual 0.4 mg sublingual Q5M PRN Chest 10/14/23 02/06/24 tablet (Nitrostat) Pain ondansetron HCl 4 mg tablet 4 mg PO Q6H PRN Nausea And Vomiting 10/14/23 02/06/24 pantoprazole 40 mg tablet,delayed 40 mg PO DAILY 10/14/23 02/06/24 release ropinirole 0.5 mg tablet 0.5 mg PO BEDTIME 10/14/23 02/06/24 sevelamer carbonate 800 mg tablet See Rx Instructions .Route .COMPLEX 10/14/23 02/06/24 venlafaxine 75 mg capsule,extended 150 mg PO TID 10/14/23 02/06/24 release 24 hr vit B,C-folic ac 800 mcg-zinc 12.5 1 tab PO DAILY 10/14/23 02/06/24 mg-selen-D3 2,000 unit-vit E tablet (RenaPlex-D) Previous Rx's Medication Instructions Recorded aspirin 81 mg capsule 81 mg PO DAILY #90 caps 10/15/23 Cam boot to right #1 ea 12/02/23 Allergies Allergy/AdvReac Type Severity Reaction Status Date / Time No Known Allergies Allergy Verified 02/06/24 15:04 Review of Systems General: Reports: 10 or more systems reviewed and unremarkable except in HPI and below Narrative: Decreased activity, abdominal pain, poor appetite, increase in chronic generalized weakness, intermittent trouble concentrating Const: Denies: fever(s) or chills Card: Denies: chest pain or syncope Resp: Denies: dyspnea, productive cough or non-productive cough GI: Denies: nausea or diarrhea : Denies: flank pain or dysuria Skin/Breast: Denies: rash Neuro: Denies: headache(s) PFSH ED PFSH: Medical History Restless leg syndrome Peritonitis CAD (coronary artery disease) Depression End-stage renal disease on peritoneal dialysis Anemia Surgical History Hx of CABG Social History Smoking and tobacco/nicotine status: former use of tobacco/nicotine Alcohol intake: never Substance/Drug Use: current Other substance/drug use details: Medical marijuana Physical Exam Narrative: EXAM NARRATIVE: Patient is a chronically ill appearing male but does not appear to be of stated age. He is malnourished and has atrophy to all muscle groups. Pale, less jaundiced. He has numerous wounds in several stages of healing. He reports he had a hospitalization for a peritoneal fungal infection. Port noted to right subclavian area Const: COMMON NORMALS: no limitations and alert EXAM LIMITATIONS: no altered mental status HENMT: COMMON NORMALS: normocephalic, atraumatic and external ears normal HEAD & SCALP: normocephalic and atraumatic EXTERNAL EAR: Yes external ears normal MOUTH: no muffled voice Eye: COMMON NORMALS: EOMs intact bilaterally, conjunctivae normal and no scleral icterus CONJUNCTIVA: Yes conjunctivae normal Neck/C-Spine: GENERAL: Yes normal visual inspection and Yes trachea midline Resp: COMMON NORMALS: normal respiratory effort, No use of accessory muscles and clear to auscultation bilaterally AUSCULTATION: clear to auscultation bilaterally GI: COMMON NORMALS: Soft to palpation PALPATION: Yes Soft to palpation and No Guarding due to palpation present (GI) Neuro: COMMON NORMALS: moves all extremities and no focal motor deficits SENSORIUM/ORIENTATION: Yes alert SPEECH: speech normal Psych: COMMON NORMALS: mental status grossly normal, Normal thought process present, cooperative, normal affect and speech normal SPEECH: Yes normal speech THOUGHT PROCESS: Normal thought process present Skin: COMMON NORMALS: no jaundice Course Vital Signs: Vital signs: Vital Signs Temperature 98.4 F 02/12/24 01:16 CD T Pulse Rate 64 02/12/24 01:01 CS T Respiratory Rate 16 02/12/24 01:16 CD T Blood Pressure 157/104 02/12/24 01:01 CS T Pulse Oximetry 97 02/12/24 01:01 CS T Oxygen Delivery Me thod Room Air 02/11/24 20:49 MDM - Recheck/Abnormal Lab/Rx Medical Decision Making Patient is a 43-year-old chronically ill male that presents to the emergency department for the low hemoglobin. Patient states that he is a hemodialysis patient underwent dialysis today. During his visit there a recheck of the hemoglobin showed hemoglobin of 6.5. Patient was referred to the emergency department for transfusion. Patient denies any complaints other than just generalized fatigue, malaise, weakness. He is very pale. This is a chronic issue to some degree. His medical history goes back to 2019 when he was in had COVID, COVID-pneumonia, and a MRSA infection. He developed renal failure at that time. Patient's history goes back further due to uncontrolled diabetes and hypertension. In 2018 he had his first acute DE in which she underwent a quadruple bypass. Patient has a very complex medical history. He denies rectal bleeding, bleeding of any source. He denies abdominal pain. He has had a recent admission. He was discharged 2 weeks ago. He was admitted at that time for a fungal infection and peritonitis. Prior to that he was receiving peritoneal dialysis. That port was removed and now he has a central line port. His hemoglobin here in the emergency department is 7.5. I transfused 1 packed red blood cell. Is creatinine is improved over his baseline. Currently 1.5. This is likely due to his dialysis completed today. He does have elevated liver enzymes which is new. He needs to follow-up with his primary care doctor for further evaluation. Chest x-ray reveals no acute cardiopulmonary abnormalities. While here he was noted to be hypertensive but patient denies taking any of his nighttime blood pressure meds. Home doses of hydralazine and clonidine given. Hydralazine 100 mg p.o., clonidine 0.3 mg p.o. Reviewed the case with Dr. Paulino and discussed further with patient. After he was transfused he would like to discharge home. We do not see a reason why he cannot do this. Transition of care to Dr. Paulino at 12:45 AM. Anticipate discharge once transfusion is complete Lab Data 02/11/24 21:02/11/24 21: Radiology Impressions Chest X-Ray 02/11/24 21: IMPRESSION: 1. Stable CABG procedure. 2. Interval placement of large caliber double lumen right central line with tip over the proximal right atrium. Laboratory Results WBC 5.51 10^3/uL (3.29-11.43) 02/11/24 21: RBC 2.75 10^6/uL (3.85-5.65) L 02/11/24 21: Hgb 7.50 g/dL (11.27-16.99) L 02/11/24 21: Hct 26.4 % (37-53) L 02/11/24 21: MCV 96.0 fl (82-101) 02/11/24 21: MCH 27.3 pg (27-33) 02/11/24 21: MCHC 28.4 g/dL (30-55) L 02/11/24 21: RDW 19.0 % (12.1-15.1) H 02/11/24 21:04 Plt Count 236 10^3/cmm (157-399) 02/11/24 21: MPV 11.2 fL (7.4-10.4) H 02/11/24 21: Neut % (Auto) 71.0 % 02/11/24 21:04 Lymph % (Auto) 16.7 % 02/11/24 21:04 [place] % (Auto) 7.8 % 02/11/24 21:04 Eos % (Auto) 3.6 % 02/11/24 21:04 Baso % (Auto) 0.5 % 02/11/24 21:04 Neut # (Auto) 3.91 10^3/uL (1.8-7.7) 02/11/24 21:04 Lymph # (Auto) 0.9 10^3/uL (0.8-4.8) 02/11/24 21:04 [place] # (Auto) 0.4 10^3/uL (0.2-0.9) 02/11/24 21:04 Eos # (Auto) 0.2 10^3/uL (0.0-0.8) 02/11/24 21:04 Baso # (Auto) 0.0 10^3/uL (0.0-0.1) 02/11/24 21:04 Nucleated RBC % (auto) 1.5 % 02/11/24 21:04 Nucleated RBCs # 0.1 /100WBC 02/11/24 21:04 Sodium 138 mmol/L (136-145) 02/11/24 21:04 Potassium 4.0 mmol/L (3.5-5.1) 02/11/24 21:04 Chloride 99 mmol/L (98-107) 02/11/24 21:04 Carbon Dioxide 28 mmol/L (22-29) 02/11/24 21:04 Anion Gap 15.0 (5-19) 02/11/24 21:04 BUN 6 mg/dL (6-20) 02/11/24 21:04 Creatinine 1.5 mg/dL (0.7-1.2) H 02/11/24 21:04 GFR Calculation 50.8 mL/min (90-130) L 02/11/24 21:04 Glucose 294 mg/dL (65-115) H 02/11/24 21:04 Calculated Osmolality 294 mOsm/kg (285-295) 02/11/24 21:04 Calcium 8.3 mg/dL (8.5-10.5) L 02/11/24 21:04 Total Bilirubin 0.5 mg/dL (0.15-1.2) 02/11/24 21:04 AST 41 U/L (0-40) H 02/11/24 21:04 ALT 180 U/L (0-41) H 02/11/24 21:04 Alkaline Phosphatase 105 U/L (40-130) 02/11/24 21:04 Total Protein 6.9 g/dL (6.6-8.7) 02/11/24 21:04 Albumin 2.8 g/dL (3.5-5.2) L 02/11/24 21:04 Globulin 4.1 g/dL (1.3-4.6) 02/11/24 21:04 Blood Type AB Positive 02/11/24 21:07 Rho(D) Type Rh positive 02/11/24 21:07 Antibody Screen Negative 02/11/24 21:07 Crossmatch See Detail 02/11/24 21:07 All radiology interpretation(s) finalized by discharge Discharge Plan Discharge Patient Disposition: Home Clinical Impression: Chronic hypertension, Hemoglobin low, Anemia in chronic illness, Chronic kidney disease, Dialysis complication, Transaminitis Condition: Stable Prescriptions: No Action (DME) Cam boot to right See Rx Instructions .Route .MEDSUPPLY Qty: 1 0RF Rx Instructions: As directed buspirone 5 mg tablet 5 mg PO TID carvedilol 25 mg Tablet 25 mg PO DAILY Rx Instructions: must administer with a meal/food venlafaxine 75 mg capsule,extended release 24hr 150 mg PO TID ondansetron HCl 4 mg tablet 4 mg PO Q6H PRN (Reason: Nausea And Vomiting) clonidine HCl 0.3 mg Tablet 0.3 mg PO TID furosemide 80 mg Tablet 80 mg PO BID hydralazine 100 mg tablet 100 mg PO TID pantoprazole 40 mg tablet,delayed release (DR/EC) 40 mg PO DAILY ropinirole 0.5 mg tablet 0.5 mg PO BEDTIME megestrol 40 mg Tablet 40 mg PO BID nitroglycerin [Nitrostat] 0.4 mg Tablet, Sublingual 0.4 mg SUBLINGUAL Q5M PRN (Reason: Chest Pain) Rx Instructions: do not exceed 3 doses per episode mirtazapine [Remeron] 15 mg Tablet 7.5 mg PO QPM gabapentin 100 mg capsule 100 mg PO TID lisinopril 40 mg Tablet 40 mg PO DAILY calcitriol 0.25 mcg Capsule 0.25 mcg PO DAILY sevelamer carbonate 800 mg tablet See Rx Instructions .ROUTE .COMPLEX Rx Instructions: TAKE 2 TABLETS BY MOUTH TWICE DAILY WITH MEAL AND 1 TABLET TWICE DAILY WITH SNACKS FOR TOTAL OF 6 TABLETS DAILY. RenaPlex-D 800 mcg-12.5 mg -2,000 unit Tablet 1 tab PO DAILY aspirin 81 mg capsule 81 mg PO DAILY Qty: 90 0RF Discharge Orders: Discharge ED (Routine); Ordered 02/12/24 Ordered By: Gary Paulino Referrals: Yaniv Moe MD [Primary Care Provider] - Discharge Diet: Advance as tolerated Discharge Activity: Resume usual activity Patient Instructions: Anemia, Opioid Safety, Pain Management Activity Restrictions/Additional Instructions: Please follow-up with the dialysis clinic and primary care as planned. Keep all your doctors appointments. He will likely need a recheck of your liver enzymes. You do not typically have elevated liver enzymes. Please return to the emergency department for new, concerning, worsening symptoms Get emergency medical help right away if you have: sudden, severe abdominal pain bloody bowel movements or black, tarry stools vomiting with blood or coffee-ground material breathing problems chest, neck, jaw, or arm pain Coding Level of Care Code ED Hotel Or Motel Room Service Supervisor for Chg Fwd Documented by User: Gary Paulino DO 02/12/24 03:09 HPI - Recheck/Abnormal Lab/Rx General: Chief Complaint: Recheck/Abnormal Lab/Rx Stated Complaint: hemoglobin 6.6 dialysis sent Time Seen by Provider: 02/11/24 20:54 Related Data Home Medications Medication Instructions Recorded Confirmed buspirone 5 mg tablet 5 mg PO TID 10/14/23 02/06/24 calcitriol 0.25 mcg capsule 0.25 mcg PO DAILY 10/14/23 02/06/24 carvedilol 25 mg tablet 25 mg PO DAILY 10/14/23 02/06/24 clonidine HCl 0.3 mg tablet 0.3 mg PO TID 10/14/23 02/06/24 furosemide 80 mg tablet 80 mg PO BID 10/14/23 02/06/24 gabapentin 100 mg capsule 100 mg PO TID 10/14/23 02/06/24 hydralazine 100 mg tablet 100 mg PO TID 10/14/23 02/06/24 lisinopril 40 mg tablet 40 mg PO DAILY 10/14/23 02/06/24 megestrol 40 mg tablet 40 mg PO BID 10/14/23 02/06/24 mirtazapine 15 mg tablet (Remeron) 7.5 mg PO QPM 10/14/23 02/06/24 nitroglycerin 0.4 mg sublingual 0.4 mg sublingual Q5M PRN Chest 10/14/23 02/06/24 tablet (Nitrostat) Pain ondansetron HCl 4 mg tablet 4 mg PO Q6H PRN Nausea And Vomiting 10/14/23 02/06/24 pantoprazole 40 mg tablet,delayed 40 mg PO DAILY 10/14/23 02/06/24 release ropinirole 0.5 mg tablet 0.5 mg PO BEDTIME 10/14/23 02/06/24 sevelamer carbonate 800 mg tablet See Rx Instructions .Route .COMPLEX 10/14/23 02/06/24 venlafaxine 75 mg capsule,extended 150 mg PO TID 10/14/23 02/06/24 release 24 hr vit B,C-folic ac 800 mcg-zinc 12.5 1 tab PO DAILY 10/14/23 02/06/24 mg-selen-D3 2,000 unit-vit E tablet (RenaPlex-D) Previous Rx's Medication Instructions Recorded aspirin 81 mg capsule 81 mg PO DAILY #90 caps 10/15/23 Cam boot to right #1 ea 12/02/23 Allergies Allergy/AdvReac Type Severity Reaction Status Date / Time No Known Allergies Allergy Verified 02/06/24 15:04 PFSH ED PFSH: Medical History Restless leg syndrome Peritonitis CAD (coronary artery disease) Depression End-stage renal disease on peritoneal dialysis Anemia Surgical History Hx of CABG Social History Smoking and tobacco/nicotine status: former use of tobacco/nicotine Alcohol intake: never Substance/Drug Use: current Other substance/drug use details: Medical marijuana Course Vital Signs: Vital signs: Vital Signs Temperature 98.4 F 02/12/24 01:16 CD T Pulse Rate 64 02/12/24 01:01 CS T Respiratory Rate 16 02/12/24 01:16 CD T Blood Pressure 157/104 02/12/24 01:01 CS T Pulse Oximetry 97 02/12/24 01:01 CS T Oxygen Delivery Me thod Room Air 02/11/24 20:49 MDM - Recheck/Abnormal Lab/Rx Medical Decision Making Patient is a 43-year-old chronically ill male that presents to the emergency department for the low hemoglobin. Patient states that he is a hemodialysis patient underwent dialysis today. During his visit there a recheck of the hemoglobin showed hemoglobin of 6.5. Patient was referred to the emergency department for transfusion. Patient denies any complaints other than just generalized fatigue, malaise, weakness. He is very pale. This is a chronic issue to some degree. His medical history goes back to 2019 when he was in had COVID, COVID-pneumonia, and a MRSA infection. He developed renal failure at that time. Patient's history goes back further due to uncontrolled diabetes and hypertension. In 2018 he had his first acute DE in which she underwent a quadruple bypass. Patient has a very complex medical history. He denies rectal bleeding, bleeding of any source. He denies abdominal pain. He has had a recent admission. He was discharged 2 weeks ago. He was admitted at that time for a fungal infection and peritonitis. Prior to that he was receiving peritoneal dialysis. That port was removed and now he has a central line port. His hemoglobin here in the emergency department is 7.5. I transfused 1 packed red blood cell. Is creatinine is improved over his baseline. Currently 1.5. This is likely due to his dialysis completed today. He does have elevated liver enzymes which is new. He needs to follow-up with his primary care doctor for further evaluation. Chest x-ray reveals no acute cardiopulmonary abnormalities. While here he was noted to be hypertensive but patient denies taking any of his nighttime blood pressure meds. Home doses of hydralazine and clonidine given. Hydralazine 100 mg p.o., clonidine 0.3 mg p.o. Reviewed the case with Dr. Paulino and discussed further with patient. After he was transfused he would like to discharge home. We do not see a reason why he cannot do this. Transition of care to Dr. Paulino at 12:45 AM. Anticipate discharge once transfusion is complete This patient was originally seen by Mrs. RamosJIMENEZ lizama.? I agree with her history, evaluation, and treatment. Lab Data 02/11/24 21:04 02/11/24 21: Radiology Impressions Chest X-Ray 02/11/24: IMPRESSION: 1. Stable CABG procedure. 2. Interval placement of large caliber double lumen right central line with tip over the proximal right atrium. Laboratory Results WBC 5.51 10^3/uL (3.29-11.43) 02/11/24 21: RBC 2.75 10^6/uL (3.85-5.65) L 02/11/24 21: Hgb 7.50 g/dL (11.27-16.99) L 02/11/24 21: Hct 26.4 % (37-53) L 02/11/24 21: MCV 96.0 fl (82-101) 02/11/24 21: MCH 27.3 pg (27-33) 02/11/24 21: MCHC 28.4 g/dL (30-55) L 02/11/24 21: RDW 19.0 % (12.1-15.1) H 02/11/24 21: Plt Count 236 10^3/cmm (157-399) 02/11/24 21: MPV 11.2 fL (7.4-10.4) H 02/11/24 21: Neut % (Auto) 71.0 % 02/11/24 21: Lymph % (Auto) 16.7 % 02/11/24 21: [place] % (Auto) 7.8 % 02/11/24 21: Eos % (Auto) 3.6 % 02/11/24 21: Baso % (Auto) 0.5 % 02/11/24 21: Neut # (Auto) 3.91 10^3/uL (1.8-7.7) 02/11/24 21:04 Lymph # (Auto) 0.9 10^3/uL (0.8-4.8) 02/11/24 21:04 [place] # (Auto) 0.4 10^3/uL (0.2-0.9) 02/11/24 21:04 Eos # (Auto) 0.2 10^3/uL (0.0-0.8) 02/11/24 21:04 Baso # (Auto) 0.0 10^3/uL (0.0-0.1) 02/11/24 21:04 Nucleated RBC % (auto) 1.5 % 02/11/24 21:04 Nucleated RBCs # 0.1 /100WBC 02/11/24 21:04 Sodium 138 mmol/L (136-145) 02/11/24 21:04 Potassium 4.0 mmol/L (3.5-5.1) 02/11/24 21:04 Chloride 99 mmol/L (98-107) 02/11/24 21:04 Carbon Dioxide 28 mmol/L (22-29) 02/11/24 21:04 Anion Gap 15.0 (5-19) 02/11/24 21:04 BUN 6 mg/dL (6-20) 02/11/24 21:04 Creatinine 1.5 mg/dL (0.7-1.2) H 02/11/24 21:04 GFR Calculation 50.8 mL/min (90-130) L 02/11/24 21:04 Glucose 294 mg/dL (65-115) H 02/11/24 21:04 Calculated Osmolality 294 mOsm/kg (285-295) 02/11/24 21:04 Calcium 8.3 mg/dL (8.5-10.5) L 02/11/24 21:04 Total Bilirubin 0.5 mg/dL (0.15-1.2) 02/11/24 21:04 AST 41 U/L (0-40) H 02/11/24 21:04 ALT 180 U/L (0-41) H 02/11/24 21:04 Alkaline Phosphatase 105 U/L (40-130) 02/11/24 21:04 Total Protein 6.9 g/dL (6.6-8.7) 02/11/24 21:04 Albumin 2.8 g/dL (3.5-5.2) L 02/11/24 21:04 Globulin 4.1 g/dL (1.3-4.6) 02/11/24 21:04 Blood Type AB Positive 02/11/24 21:07 Rho(D) Type Rh positive 02/11/24 21:07 Antibody Screen Negative 02/11/24 21:07 Crossmatch See Detail 02/11/24 21:07 Discharge Plan Discharge Patient Disposition: Home Clinical Impression: Chronic hypertension, Hemoglobin low, Anemia in chronic illness, Chronic kidney disease, Dialysis complication, Transaminitis Condition: Stable Prescriptions: No Action (DME) Cam boot to right See Rx Instructions .Route .MEDSUPPLY Qty: 1 0RF Rx Instructions: As directed buspirone 5 mg tablet 5 mg PO TID carvedilol 25 mg Tablet 25 mg PO DAILY Rx Instructions: must administer with a meal/food venlafaxine 75 mg capsule,extended release 24hr 150 mg PO TID ondansetron HCl 4 mg tablet 4 mg PO Q6H PRN (Reason: Nausea And Vomiting) clonidine HCl 0.3 mg Tablet 0.3 mg PO TID furosemide 80 mg Tablet 80 mg PO BID hydralazine 100 mg tablet 100 mg PO TID pantoprazole 40 mg tablet,delayed release (DR/EC) 40 mg PO DAILY ropinirole 0.5 mg tablet 0.5 mg PO BEDTIME megestrol 40 mg Tablet 40 mg PO BID nitroglycerin [Nitrostat] 0.4 mg Tablet, Sublingual 0.4 mg SUBLINGUAL Q5M PRN (Reason: Chest Pain) Rx Instructions: do not exceed 3 doses per episode mirtazapine [Remeron] 15 mg Tablet 7.5 mg PO QPM gabapentin 100 mg capsule 100 mg PO TID lisinopril 40 mg Tablet 40 mg PO DAILY calcitriol 0.25 mcg Capsule 0.25 mcg PO DAILY sevelamer carbonate 800 mg tablet See Rx Instructions .ROUTE .COMPLEX Rx Instructions: TAKE 2 TABLETS BY MOUTH TWICE DAILY WITH MEAL AND 1 TABLET TWICE DAILY WITH SNACKS FOR TOTAL OF 6 TABLETS DAILY. RenaPlex-D 800 mcg-12.5 mg -2,000 unit Tablet 1 tab PO DAILY aspirin 81 mg capsule 81 mg PO DAILY Qty: 90 0RF Discharge Orders: Discharge ED (Routine); Ordered 02/12/24 Ordered By: Gary Paulino Referrals: Yaniv Moe MD [Primary Care Provider] - Discharge Diet: Advance as tolerated Discharge Activity: Resume usual activity Patient Instructions: Anemia, Opioid Safety, Pain Management Activity Restrictions/Additional Instructions: Please follow-up with the dialysis clinic and primary care as planned. Keep all your doctors appointments. He will likely need a recheck of your liver enzymes. You do not typically have elevated liver enzymes. Please return to the emergency department for new, concerning, worsening symptoms Get emergency medical help right away if you have: sudden, severe abdominal pain bloody bowel movements or black, tarry stools vomiting with blood or coffee-ground material breathing problems chest, neck, jaw, or arm pain Coding Level of Care Code ED Hotel Or Motel Room Service Supervisor for Monik Riley
[2024-02-11 21:25] LABS: Basophils % 0.5 %; Eosinophils # 0.2 10^3/uL (0.0-0.8); Eosinophils % 3.6 %; Hematocrit 26.4 % (37-53); Lymphocytes # 0.9 10^3/uL (0.8-4.8); Lymphocytes % 16.7 %; Mean Corpuscular HGB Conc 28.4 g/dL (30-55); Mean Corpuscular Hemoglobin 27.3 pg (27-33); Mean Platelet Volume 11.2 fL (7.4-10.4); Monocytes # 0.4 10^3/uL (0.2-0.9); Monocytes % 7.8 %; Neutrophils # 3.91 10^3/uL (1.8-7.7); Nucleated Red Blood Cells # 0.1 /100WBC; Nucleated Red Blood Cells % 1.5 %; Platelet Count 236 10^3/cmm (157-399); Red Blood Count 2.75 10^6/uL (3.85-5.65); White Blood Count 5.51 10^3/uL (3.29-11.43)
[2024-02-11 21:28] VITALS: BP 161/102; PULSE 70; O2SAT 97
[2024-02-11 21:43] LABS: Alanine Aminotransferase 180 U/L (0-41); Albumin Level 2.8 g/dL (3.5-5.2); Alkaline Phosphatase 105 U/L (40-130); Aspartate Amino Transferase 41 U/L (0-40); Blood Urea Nitrogen 6 mg/dL (6-20); Calcium 8.3 mg/dL (8.5-10.5); Carbon Dioxide 28 mmol/L (22-29); Chloride 99 mmol/L (98-107); Creatinine Clr Calc Pharmacy 52.4151; Globulin 4.1 g/dL (1.3-4.6); Glomerular Filtration Rate 50.8 mL/min (90-130); Glucose 294 mg/dL (65-115); Osmolality Calculated 294 mOsm/kg (285-295); Sodium 138 mmol/L (136-145); Total Bilirubin 0.5 mg/dL (0.15-1.2); Total Protein 6.9 g/dL (6.6-8.7)
[2024-02-11 22:45] VITALS: BP 181/106; PULSE 71; RESP 16; TEMP 36.7; O2SAT 97
[2024-02-11 23:01] VITALS: BP 178/111; PULSE 72; RESP 18; TEMP 36.8; O2SAT 99
[2024-02-11 23:16] VITALS: BP 178/112; PULSE 72; RESP 16; TEMP 36.8; O2SAT 100
[2024-02-11] MEDS: hyDRALAzine 25 mg Tablet 100 MG PO (23:27)
[2024-02-12] VITALS (7 sets, daily range): BP systolic 157–192; BP diastolic 104–122; PULSE 64–77; RESP 16; TEMP 36.8–36.9; O2SAT 97–100
[2024-02-12] MEDS: cloNIDine 0.1 mg Tablet 0.3 MG PO (00:02)
[2024-02-12] MEDS: labetalol 5 mg/mL SDV 20mL 20 MG IVP (01:40)
[2024-02-12] MEDS: sodium chloride 0.9% 100 mL Bag 50 ML IV (01:40)
== END 2024-02-12 01:02 | disposition home or self-care (01) ==
PROVIDERS: Emergency Provider Nurse Practitioner; PCP Family Medicine
DX: I12.0 Hypertensive chronic kidney disease with stage 5 chronic kidney disease or end stage renal disease (principal); N18.6 End stage renal disease; Z99.2 Dependence on renal dialysis; R74.01 Elevation of levels of liver transaminase levels; D64.9 Anemia, unspecified; T80.90XA Unspecified complication following infusion and therapeutic injection, initial encounter; X58.XXXA Exposure to other specified factors, initial encounter; Z79.82 Long term (current) use of aspirin; Z87.891 Personal history of nicotine dependence; I25.10 Atherosclerotic heart disease of native coronary artery without angina pectoris
CPT/HCPCS: 36415; 36430; 71045; 80053; 85025; 86850; 86900; 86920; 96374; 99284; J3490; P9016

== ENCOUNTER → 2024-02-29 16:05 | Outpatient (BNVA) | payer MEDICARE, SELFPAY | PROVIDERS: PCP Family Medicine; Visit Provider Podiatrist Foot & Ankle Surgery | DX: L97.522 Non-pressure chronic ulcer of 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 (principal) | CPT/HCPCS: 87070; 87075; 87205 ==

== ENCOUNTER → 2024-03-19 15:15 | Outpatient (BNVA) | payer MEDICARE, SELFPAY | PROVIDERS: PCP Family Medicine; Visit Provider Podiatrist Foot & Ankle Surgery | DX: L97.522 Non-pressure chronic ulcer of 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 (principal) | CPT/HCPCS: 87070; 87075; 87205 ==

== ENCOUNTER → 2024-03-23 08:20 | Outpatient (BNVA) | payer MEDICARE, SELFPAY | PROVIDERS: PCP Family Medicine; Visit Provider Thoracic Surgery (Cardiothoracic Vascular Surgery) | DX: E11.52 Type 2 diabetes mellitus with diabetic peripheral angiopathy with gangrene (principal); E11.621 Type 2 diabetes mellitus with foot ulcer; L97.521 Non-pressure chronic ulcer of other part of left foot limited to breakdown of skin | CPT/HCPCS: 97597; 99213; A6219; A6248 ==

== ENCOUNTER 2024-06-09 12:47 | Observation (INO) | payer MEDICARE, SELFPAY ==
[2024-06-09] VITALS (40 sets, daily range): BP systolic 126–205; BP diastolic 84–123; PULSE 75–92; RESP 0–30; TEMP 36.2–37.3; O2SAT 82–100; BMI 20.7
--- NOTE | 2024-06-09 12:51 | ECG_ITS ---
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 Measurements Intervals [place] Rate: 91 P: 63 DE: 195 QRS: 55 QRSD: 109 T: -34 QT: 403 QTc: 497 Interpretive Statements SINUS RHYTHM POSSIBLE LEFT ATRIAL ENLARGEMENT SEPTAL MYOCARDIAL INFARCTION , OF INDETERMINATE AGE Compared to ECG 01/20/2024 13:14:38 Sinus arrhythmia no longer present Left ventricular hypertrophy no longer present ST (T wave) deviation no longer present Myocardial infarct finding still present Electronically Signed On 06-10-2024 12:36:26 TOE LASTER by Magda Woodard M.D. [email or web address] [id number]
--- NOTE | 2024-06-09 12:54 | XRR_ITS ---
PROCEDURE INFORMATION: Exam: XR Chest Exam date and time: 06/09/2024 1:14 PM Age: 43 years old Clinical indication: Cough and dyspnea; Prior surgery; Surgery date: 6+ months; Surgery type: Cabg, dialysis cath; Respiratory distress; SOB; Hypoxia TECHNIQUE: Imaging protocol: Radiologic exam of the chest. Views: 1 view. COMPARISON: CR XR chest 1V [id number] 02/11/2024 9:36 PM FINDINGS: Tubes, catheters and devices: Right-sided dialysis catheter tip at the level of distal SVC, unchanged. Lungs: Focal dense infiltrate in the left lower lobe. Mild pulmonary edema/congestion. Pleural spaces: No pleural effusion. No pneumothorax. Heart/Mediastinum: Cardiomegaly. Bones/joints: Median sternotomy. XR/XR chest 1V portable [id number] IMPRESSION: 1. Focal dense infiltrates in left lower lobe suspicious for acute pneumonia. Recommend short-term follow-up. 2. Cardiomegaly with minimal pulmonary edema.
[2024-06-09 12:56] LABS: ABG PCO2 34.8 mmHg (35-45); ABG PH Result 7.46 (7.35-7.45); Alveolar-Arterial Oxygen Gradi 6.4 mmHg (5-10); Arterial Blood Gas Hematocrit 34.1 % (42-52); Base Excess ABG 0.8 mmol/L (-2.0-2.0); Blood Gas Allen Test Pos; Blood Gas Operator Identificat WALCI; Blood Gas Sample Site Radial, left; Blood Gas Sample Type Arterial; Carboxyhemoglobin 1.6 %THgb (0.4-20.1); HCO3 ABG 24.5 mmol/L (22-26); HGB O2 Sat 87.5 % (95-100); Ionized Calcium Level - ABG 1.3 mmol/L (1.1-1.4); Methemoglobin 1.1 % (0.4-1.5); Oxygen Device BIPAP; PO2 ABG 57.3 mmHg (80.0-100.0); Potassium Level - ABG 5.2 mmol/L (3.5-5.0); Total Hemoglobin 11.1 g/dL (14-18)
[2024-06-09 13:01] LABS: Basophils # 0.1 10^3/uL (0.0-0.1); Basophils % 0.7 %; Eosinophils # 0.2 10^3/uL (0.0-0.8); Eosinophils % 1.3 %; Hematocrit 34.5 % (37-53); Lymphocytes # 0.8 10^3/uL (0.8-4.8); Lymphocytes % 5.9 %; Mean Corpuscular HGB Conc 30.4 g/dL (30-55); Mean Corpuscular Hemoglobin 28.9 pg (27-33); Monocytes # 0.9 10^3/uL (0.2-0.9); Monocytes % 7.1 %; Neutrophils # 11.03 10^3/uL (1.8-7.7); Neutrophils % 84.6 %; Nucleated Red Blood Cells % 0 %; Platelet Count 289 10^3/cmm (157-399); Red Blood Count 3.63 10^6/uL (3.85-5.65); Red Cell Distribution Width 17.9 % (12.1-15.1); White Blood Count 13.04 10^3/uL (3.29-11.43)
--- NOTE | 2024-06-09 13:06 | W.ED.SOB ---
HPI - SOB/Dyspnea General: Chief Complaint: Shortness of Breath/Dyspnea Stated Complaint: resp distress Time Seen by Provider: 06/09/24 12:53 History of Present Illness: HPI Narrative: 43-year-old male presents emergency room via EMS he is on EMS CPAP on arrival still satting only around 80%. Patient has end-stage renal disease he receives dialysis on Tuesday and of this week at discharge dialysis today became very short of breath was noted to be hypoxic and EMS was called. He said a little bit of a productive cough as well. He is given 40 mg Lasix and 1/2 inch of Nitropaste right yeah and route patient does state he does make small amounts of urine. He is not having any chest or abdominal pain at this time Associated symptoms: Reports chest congestion; Deny abdominal pain, chest pain or fever(s) Related Data Home Medications ?Medication ?Instructions ?Recorded ?Confirmed amlodipine 5 mg tablet 5 mg PO QPM 06/09/24 06/09/24 bumetanide 2 mg tablet See Rx Instructions .Route .COMPLEX 06/09/24 06/09/24 buspirone 5 mg tablet 5 mg PO TID 06/09/24 06/09/24 calcitriol 0.25 mcg capsule 0.75 mcg PO DAILY 06/09/24 06/09/24 carvedilol 25 mg tablet 50 mg PO TID 06/09/24 06/09/24 clonidine HCl 0.3 mg tablet 0.3 mg PO TID 06/09/24 06/09/24 furosemide 80 mg tablet 80 mg PO BID 06/09/24 06/09/24 gabapentin 100 mg capsule See Rx Instructions .Route .COMPLEX 06/09/24 06/09/24 hydralazine 100 mg tablet 100 mg PO TID 06/09/24 06/09/24 insulin lispro 100 unit/mL See Rx Instructions .Route .COMPLEX 06/09/24 06/09/24 subcutaneous pen lisinopril 20 mg tablet 20 mg PO DAILY 06/09/24 06/09/24 loperamide 2 mg capsule See Rx Instructions .Route .COMPLEX 06/09/24 06/09/24 megestrol 40 mg tablet 40 mg PO BID 06/09/24 06/09/24 mirtazapine 15 mg tablet 7.5 mg PO DAILY 06/09/24 06/09/24 nifedipine 30 mg tablet,extended 30 mg PO DAILY 06/09/24 06/09/24 release pantoprazole 40 mg tablet,delayed 40 mg PO DAILY 06/09/24 06/09/24 release ropinirole 0.5 mg tablet 0.5 mg PO QPM 06/09/24 06/09/24 sevelamer carbonate 800 mg tablet See Rx Instructions .Route .COMPLEX 06/09/24 06/09/24 sodium bicarbonate 325 mg tablet 325 mg PO DAILY 06/09/24 06/09/24 venlafaxine 150 mg 150 mg PO DAILY 06/09/24 06/09/24 capsule,extended release 24 hr vit B,C-folic ac 800 mcg-zinc 12.5 See Rx Instructions .Route .COMPLEX 06/09/24 06/09/24 mg-selen-D3 2,000 unit-vit E tablet (RenaPlex-D) Allergies Allergy/AdvReac Type Severity Reaction Status Date / Time No Known Allergies Allergy Verified 03/19/24 15:01 Review of Systems Const: Denies: fever(s) or chills Card: Denies: chest pain Resp: Reports: dyspnea, wheezing and chest congestion GI: Denies: abdominal pain : Denies: dysuria, urinary frequency or urinary urgency Musc: Denies: neck pain or back pain Skin/Breast: Denies: rash PFSH ED PFSH: Medical History Ingrowing toenail of left foot Hematoma of leg Non-pressure chronic ulcer of 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 Bilateral pes planus Medical non-compliance Hypertensive urgency Closed right trimalleolar fracture Restless leg syndrome Peritonitis CAD (coronary artery disease) Depression End-stage renal disease on peritoneal dialysis Anemia Surgical History Hx of CABG Social History Smoking and tobacco/nicotine status: former use of tobacco/nicotine Alcohol intake: never Substance/Drug Use: current Other substance/drug use details: Medical marijuana Physical Exam Const: COMMON NORMALS: no acute distress GENERAL APPEARANCE: cooperative and comfortable ORIENTATION/CONSCIOUSNESS: Yes awake, Yes oriented to person, Yes oriented to place and Yes oriented to time HENMT: COMMON NORMALS: normocephalic, atraumatic and hearing grossly normal bilaterally HEAD & SCALP: normocephalic and atraumatic Resp: EFFORT & INSPECTION: Yes tachypneic AUSCULTATION: crackles and wheezes Cardio: COMMON NORMALS: regular rate, regular rhythm and No murmurs present (Cardio) RATE: regular rate RHYTHM: regular rhythm GI: COMMON NORMALS: Soft to palpation and No hepatosplenomegaly present AUSCULTATION: Yes normoactive bowel sounds PALPATION: Yes Soft to palpation, No Tenderness to palpation present (GI), No Guarding due to palpation present (GI) and Yes No hepatosplenomegaly present Extremity: COMMON NORMALS: normal to inspection, capillary refill normal, no clubbing, cyanosis or edema, no calf tenderness and no pedal edema Neuro: SENSORIUM/ORIENTATION: Yes oriented to person, Yes oriented to place and Yes oriented to time Skin: COMMON NORMALS: no rashes or lesions noted GENERAL SKIN EXAM: no rashes or lesions noted Course Vital Signs: Vital signs: Vital Signs Temperature 97.2 F L 06/09/24 12:53 Pulse Rate 81 06/09/24 13:57 Respiratory Rate 27 H 06/09/24 13:55 Blood Pressure 205/123 06/09/24 12:48 Pulse Oximetry 97 06/09/24 13:57 Oxygen Delivery Me thod BiPAP 06/09/24 13:55 Fraction of Inspir ed Oxygen 60 06/09/24 13:57 MDM - SOB/Dyspnea Medical Decision Making End-stage renal disease with congestive heart failure and left lower lobe pneumonia cultures done started on Zosyn. Hyperkalemia treated in the emergency room consult nephrology admit to ICU for the hospitalist. Lab Data 06/09/24 12:54 06/09/24 12:54 Labs/Radiology: Radiology Impressions Chest X-Ray 06/09/24 12:54 IMPRESSION: 1. Focal dense infiltrates in left lower lobe suspicious for acute pneumonia. Recommend short-term follow-up. 2. Cardiomegaly with minimal pulmonary edema. Laboratory Results WBC 13.04 10^3/uL (3.29-11.43) H 06/09/24 12:54 RBC 3.63 10^6/uL (3.85-5.65) L 06/09/24 12:54 Hgb 10.50 g/dL (11.27-16.99) L 06/09/24 12:54 Hct 34.5 % (37-53) L 06/09/24 12:54 MCV 95.0 fl (82-101) 06/09/24 12:54 MCH 28.9 pg (27-33) 06/09/24 12:54 MCHC 30.4 g/dL (30-55) 06/09/24 12:54 RDW 17.9 % (12.1-15.1) H 06/09/24 12:54 Plt Count 289 10^3/cmm (157-399) 06/09/24 12:54 MPV 10.0 fL (7.4-10.4) 06/09/24 12:54 Neut % (Auto) 84.6 % 06/09/24 12:54 Lymph % (Auto) 5.9 % 06/09/24 12:54 Foard % (Auto) 7.1 % 06/09/24 12:54 Eos % (Auto) 1.3 % 06/09/24 12:54 Baso % (Auto) 0.7 % 06/09/24 12:54 Neut # (Auto) 11.03 10^3/uL (1.8-7.7) H 06/09/24 12:54 Lymph # (Auto) 0.8 10^3/uL (0.8-4.8) 06/09/24 12:54 Foard # (Auto) 0.9 10^3/uL (0.2-0.9) 06/09/24 12:54 Eos # (Auto) 0.2 10^3/uL (0.0-0.8) 06/09/24 12:54 Baso # (Auto) 0.1 10^3/uL (0.0-0.1) 06/09/24 12:54 Nucleated RBC % (auto) 0 % 06/09/24 12:54 Nucleated RBCs # 0.0 /100WBC 06/09/24 12:54 D-Dimer 1.34 ug/mLFEU (0-0.59) H 06/09/24 12:54 Specimen Type Arterial 06/09/24 12:46 Sample Site Radial, left 06/09/24 12:46 ABG pH 7.46 (7.35-7.45) H 06/09/24 12:46 ABG pCO2 34.8 mmHg (35-45) L 06/09/24 12:46 ABG pO2 57.3 mmHg (80.0-100.0) L 06/09/24 12:46 ABG HCO3 24.5 mmol/L (22-26) 06/09/24 12:46 ABG O2 Saturation 90.0 06/09/24 12:46 ABG Base Excess 0.8 mmol/L (-2.0-2.0) 06/09/24 12:46 Otoniel Test Pos 06/09/24 12:46 A-a O2 Gradient 6.4 mmHg (5-10) 06/09/24 12:46 Hematocrit 34.1 % (42-52) L 06/09/24 12:46 Hgb O2 Saturation 87.5 % (95-100) L 06/09/24 12:46 Carboxyhemoglobin 1.6 %THgb (0.4-20.1) 06/09/24 12:46 Methemoglobin 1.1 % (0.4-1.5) 06/09/24 12:46 Total Hemoglobin 11.1 g/dL (14-18) L 06/09/24 12:46 Sodium 138.0 mmol/L (131-143) 06/09/24 12:46 Potassium 5.2 mmol/L (3.5-5.0) H 06/09/24 12:46 Glucose 213.0 mg/dL (70-115) H 06/09/24 12:46 Ionized Calcium 1.3 mmol/L (1.1-1.4) 06/09/24 12:46 O2 Delivery Device Bipap 06/09/24 12:46 O2 Liters/Min 15.0 % 06/09/24 12:46 PEEP 10.0 cmH20 06/09/24 12:46 Battalion Chief ID [place] 06/09/24 12:46 Sodium 133 mmol/L (136-145) L 06/09/24 12:54 Potassium 5.5 mmol/L (3.5-5.1) H 06/09/24 12:54 Chloride 94 mmol/L (98-107) L 06/09/24 12:54 Carbon Dioxide 23 mmol/L (22-29) 06/09/24 12:54 Anion Gap 21.5 (5-19) H 06/09/24 12:54 BUN 31 mg/dL (6-20) H 06/09/24 12:54 Creatinine 4.8 mg/dL (0.7-1.2) H 06/09/24 12:54 GFR Calculation 13.3 mL/min (90-130) L 06/09/24 12:54 Glucose 205 mg/dL (65-115) H 06/09/24 12:54 Calculated Osmolality 288 mOsm/kg (285-295) 06/09/24 12:54 Lactic Acid 1.5 mmol/L (0.5-2.2) 06/09/24 12:54 Calcium 11.1 mg/dL (8.5-10.5) H 06/09/24 12:54 Magnesium 2.8 mg/dL (1.7-2.3) H 06/09/24 12:54 Total Bilirubin 0.8 mg/dL (0.15-1.2) 06/09/24 12:54 AST 15 U/L (0-40) 06/09/24 12:54 ALT 9 U/L (0-41) 06/09/24 12:54 Alkaline Phosphatase 77 U/L (40-130) 06/09/24 12:54 Troponin T Baseline 308 ng/L (0-15) H* 06/09/24 12:54 Total Protein 8.2 g/dL (6.6-8.7) 06/09/24 12:54 Albumin 4.4 g/dL (3.5-5.2) 06/09/24 12:54 Globulin 3.8 g/dL (1.3-4.6) 06/09/24 12:54 Influenza A (PCR) Negative (Negative) 06/09/24 13:09 Influenza Type B (PCR) Negative (Negative) 06/09/24 13:09 RSV (PCR) Negative (Negative) 06/09/24 13:09 SARS-CoV-2 (PCR) Negative (Negative) 06/09/24 13:09 All radiology interpretation(s) finalized by discharge Discharge Plan Discharge Patient Disposition: Admitted As Inpatient Admit Provider: René Xiao Clinical Impression: Community acquired pneumonia, ESRD (end stage renal disease), Sepsis, Elevated troponin level, Diabetic peripheral neuropathy associated with type 2 diabetes mellitus Condition: Stable Coding Level of Care Code ED [employer] Specialist for Monik Riley
[2024-06-09] MEDS: ipratropium-albuterol 3 mL Neb INHALATION (13:07)
[2024-06-09] MEDS: dexamethasone 10 mg/mL INJ IM (13:09)
[2024-06-09 13:20] LABS: Lactic Sepsis W/Reflex 1.5 mmol/L (0.5-2.2)
[2024-06-09 13:23] LABS: Alanine Aminotransferase 9 U/L (0-41); Albumin Level 4.4 g/dL (3.5-5.2); Alkaline Phosphatase 77 U/L (40-130); Anion Gap 21.5 (5-19); Aspartate Amino Transferase 15 U/L (0-40); Blood Urea Nitrogen 31 mg/dL (6-20); Calcium 11.1 mg/dL (8.5-10.5); Carbon Dioxide 23 mmol/L (22-29); Chloride 94 mmol/L (98-107); Globulin 3.8 g/dL (1.3-4.6); Glomerular Filtration Rate 13.3 mL/min (90-130); Glucose 205 mg/dL (65-115); Magnesium 2.8 mg/dL (1.7-2.3); Osmolality Calculated 288 mOsm/kg (285-295); Potassium 5.5 mmol/L (3.5-5.1); Sodium 133 mmol/L (136-145); Total Bilirubin 0.8 mg/dL (0.15-1.2); Total Protein 8.2 g/dL (6.6-8.7)
[2024-06-09 13:24] LABS: Creatinine Clr Calc Pharmacy 20.2412; Troponin(5th) Baseline 308 ng/L (0-15)
[2024-06-09 13:49] LABS: Influenza A NEGATIVE (Negative); Influenza B NEGATIVE (Negative); Respiratory Syncytial Virus Ce NEGATIVE (Negative); SARS-CoV-2 PCR NEGATIVE (Negative)
[2024-06-09] MEDS: albuterol 2.5 mg/3 mL Neb 10 MG INHALATION (13:58)
[2024-06-09] MEDS: calcium chloride 10% Syr 10 mL 1 GM IVP (14:11)
[2024-06-09] MEDS: insulin regular-human 100 units/1 mL 10 UNIT IVP (14:22)
--- NOTE | 2024-06-09 14:24 | PM.HP ---
Providers/Chief Complaint Primary Care Provider: Yaniv Moe MD Chief Complaint: resp distress History of Present Illness Jose Guadalupe Claudio is a 43 year old male with a past medical history significant for end-stage renal disease on hemodialysis, hypertension, coronary artery disease status post CABG, restless leg syndrome, and multiple other comorbidities who presents from dialysis center with respiratory distress. Patient reports he was in his usual state of health until awakening this morning. When he woke up, he felt more short of breath than normal. Endorses associated generalized malaise and fatigue. Exertion worsens symptoms. Rest improves. They initially attributed the symptoms to likely fluid overload was hoping dialysis today would resolve the symptoms. Per collateral information from ED provider, patient went to dialysis did not tolerate session well due to increased work of breathing and respiratory distress. EMS was called and patient was placed on BiPAP and route. In the emergency department, he was found to have leukocytosis to 13.04. Blood gas consistent with hypoxia with pO2 of 57.3 mmHg while on BiPAP. Further labs revealed hyponatremia, hyperkalemia, hypercalcemia, and elevated baseline troponin of 308 ng/L. Rapid influenza, RSV and COVID were negative. Chest x-ray obtained with radiology read pending. Personal review shows a left lower lobe consolidation consistent with pneumonia. Spouse is bedside very supportive. She aids in providing collateral information. Follows with Dr. Alvarado for nephrology. His access is via right HD line. He was previously on PD which was stopped following peritonitis. She does note that he has worsening right lower extremity edema as compared to the left. Patient denies significant pain in this leg. He does have a history of prior blood clots. He also has a history of surgery to this leg as well. Discussed obtaining D-dimer to help risk stratify for VTE. Review of Systems Narrative: A complete review of systems was obtained and is negative except as stated in HPI. Medications/Allergies Home Medications ?Medication ?Instructions ?Recorded ?Confirmed ?Last Taken ?Type amlodipine 5 mg tablet 5 mg PO QPM 06/09/24 06/09/24 Unknown History bumetanide 2 mg tablet See Rx Instructions .Route .COMPLEX 06/09/24 06/09/24 Unknown History buspirone 5 mg tablet 5 mg PO TID 06/09/24 06/09/24 Unknown History calcitriol 0.25 mcg capsule 0.75 mcg PO DAILY 06/09/24 06/09/24 Unknown History carvedilol 25 mg tablet 50 mg PO TID 06/09/24 06/09/24 Unknown History clonidine HCl 0.3 mg tablet 0.3 mg PO TID 06/09/24 06/09/24 Unknown History furosemide 80 mg tablet 80 mg PO BID 06/09/24 06/09/24 Unknown History gabapentin 100 mg capsule See Rx Instructions .Route .COMPLEX 06/09/24 06/09/24 Unknown History hydralazine 100 mg tablet 100 mg PO TID 06/09/24 06/09/24 Unknown History insulin lispro 100 unit/mL See Rx Instructions .Route .COMPLEX 06/09/24 06/09/24 Unknown History subcutaneous pen lisinopril 20 mg tablet 20 mg PO DAILY 06/09/24 06/09/24 Unknown History loperamide 2 mg capsule See Rx Instructions .Route .COMPLEX 06/09/24 06/09/24 Unknown History megestrol 40 mg tablet 40 mg PO BID 06/09/24 06/09/24 Unknown History mirtazapine 15 mg tablet 7.5 mg PO DAILY 06/09/24 06/09/24 Unknown History nifedipine 30 mg tablet,extended 30 mg PO DAILY 06/09/24 06/09/24 Unknown History release pantoprazole 40 mg tablet,delayed 40 mg PO DAILY 06/09/24 06/09/24 Unknown History release ropinirole 0.5 mg tablet 0.5 mg PO QPM 06/09/24 06/09/24 Unknown History sevelamer carbonate 800 mg tablet See Rx Instructions .Route .COMPLEX 06/09/24 06/09/24 Unknown History sodium bicarbonate 325 mg tablet 325 mg PO DAILY 06/09/24 06/09/24 Unknown History venlafaxine 150 mg 150 mg PO DAILY 06/09/24 06/09/24 Unknown History capsule,extended release 24 hr vit B,C-folic ac 800 mcg-zinc 12.5 See Rx Instructions .Route .COMPLEX 06/09/24 06/09/24 Unknown History mg-selen-D3 2,000 unit-vit E tablet (RenaPlex-D) Allergies Allergy/AdvReac Type Severity Reaction Status Date / Time No Known Allergies Allergy Verified 03/19/24 15:01 PFSH Acute PFSH: Medical History Ingrowing toenail of left foot Hematoma of leg Non-pressure chronic ulcer of 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 Bilateral pes planus Medical non-compliance Hypertensive urgency Closed right trimalleolar fracture Restless leg syndrome Peritonitis CAD (coronary artery disease) Depression End-stage renal disease on peritoneal dialysis Anemia Surgical History Hx of CABG Social History Smoking and tobacco/nicotine status: former use of tobacco/nicotine Alcohol intake: never Substance/Drug Use: current Other substance/drug use details: Medical marijuana Vitals/I&O/Wt Last Vital Signs Temp 97.2 F L 06/09/24 12:53 Pulse 81 06/09/24 13:57 Resp 27 H 06/09/24 13:55 BP 205/123 06/09/24 12:48 Pulse Ox 97 06/09/24 13:57 O2 Del Method BiPAP 06/09/24 13:55 FiO2 60 06/09/24 13:57 Weight last 48 hrs Weight 65.771 kg Physical Exam Narrative: General: Patient is awake. On BiPAP. Head: Normocephalic. Atraumatic. EOM intact. Neck: No JVD. Cardiovascular: RRR. No gallops. No murmurs. Hypertensive. Lungs: Tachypnea. Conversational dyspnea on BiPAP. Faint left basilar rhonchi. No wheezing. Skin: No jaundice. No rashes. Abdomen: Normal bowel sounds, abdomen soft and nontender. Extremities: No cyanosis or clubbing. Musculoskeletal: No erythematous joints. Right lower extremity edema present. Neurological: Moves all 4 extremities. No myoclonus. Data 06/09/24 12:54 06/09/24 12:54 Micro: Microbiology 06/09/24 13:12 Blood Culture - Preliminary Blood SPECIMEN COLLECTED 06/09/24 13:10 Blood Culture - Preliminary Blood SPECIMEN COLLECTED A&P Assessment and plan (1) Sepsis: Severe sepsis with acute hypoxic respiratory failure requiring BiPAP Infection source: Left basilar community-acquired pneumonia SIRS: Tachypnea, leukocytosis Endorgan damage: Respiratory failure requiring BiPAP Status post Zosyn in the emergency department No IV fluid bolus/resuscitation due to end-stage renal disease Panculture Start ceftriaxone and azithromycin Procalcitonin Plan for sputum culture if cough becomes productive Supportive care (2) Community acquired pneumonia: Left basilar commune acquired pneumonia Check procalcitonin Antibiotics as above (3) ESRD (end stage renal disease): Did not finish session today, now on HD due to history of peritonitis Nephrology consult for dialysis management (4) Elevated troponin level: Baseline troponin elevated but similar to prior baseline Trend out troponin levels Telemetry monitoring (5) Hyperkalemia: Mild hyperkalemia likely secondary to ESRD Being treated medically by ED provider Monitored with telemetry Nephrology consult for dialysis Will repeat labs in a.m. (6) Chronic hypertension: Plan to continue home regiment after list is updated IV hydralazine as needed (7) Leg swelling: Asymmetric leg swelling with right worse than left May be sequela from vein damage from surgery Start with D-dimer which has a moderate to high chance of being elevated given acute illness If D-dimer is elevated will check for blood clot w/ venous Doppler ultrasound Plan DVT prophylaxis: Heparin PDMP PDMP Reviewed: Not Reviewed Attestations Medical Necessity Statement*: Patient presents with shortness of breath from dialysis center, found to have left basilar community acquired pneumonia with sepsis with acute hypoxic respiratory failure requiring BiPAP with expected hospitalization not to cross 2 midnights for IV antibiotics pneumonia, dialysis for electrolyte/volume control and supportive care. Coding Level of Care Code Acute Code for [facility] Diagnoses Sepsis A41.9 Community acquired pneumonia J18.9 ESRD (end stage renal disease) N18.6 Elevated troponin level R79.89 Hyperkalemia E87.5 Chronic hypertension I10 Leg swelling M79.89
--- NOTE | 2024-06-09 14:55 | ECG_ITS ---
[facility] Date: 2024-06-09 Pat Name: Jose Guadalupe Claudio Department: Room: [facility] Gender: Male Dra[employer] Castings: : 1980 Requested By: Abhinav Lentz Order Number: [id number] Cristobal MD: Magda Woodard M.D. Measurements Intervals Bath Rate: 81 P: 62 KS: 170 QRS: 36 QRSD: 98 T: 172 QT: 406 QTc: 471 Interpretive Statements SINUS RHYTHM SEPTAL MYOCARDIAL INFARCTION , PROBABLY OLD MODERATE T-WAVE ABNORMALITY, CONSIDER LATERAL ISCHEMIA Compared to ECG 06/09/2024 12:51:40 T-wave abnormality now present Possible ischemia now present Myocardial infarct finding still present Electronically Signed On 06-10-2024 12:45:29 [employer]AFF [employer]ESTER by Magda Woodard M.D. [email or web address]
[2024-06-09 14:56] LABS: D Dimer 1.34 ug/mLFEU (0-0.59)
[2024-06-09 14:57] LABS: Glucose Point of Care 138 mg/dL (70-110)
[2024-06-09 15:08] LABS: Procalcitonin 0.55 ng/mL (0-0.5)
[2024-06-09 15:16] LABS: Troponin 5 2HR 290.7 ng/L (0-15); Troponin 5 2HR Delta -17.3 ABS# (0-10)
[2024-06-09] MEDS: piperacillin-tazobactam 3.375 GM in sodium chloride 0.9% (plus) 50 ML IV (15:26)
--- NOTE | 2024-06-09 15:32 | PM.CONSULT ---
Providers/Reason For Consult Consulting Physician/Specialty*: Nephrology Reason for Consult*: esrd Requesting Physician: DR Xiao Attending Physician: René Xiao MD Primary Care Provider: Yaniv Moe MD History of Present Illness History of Present Illness Jos eGuadalupe Claudio is a 43 year old male with a history of esrd, htn, dm2, who presented to the er on 06/09/2024 complaining of a 2-3 history of malaise. He notes that he awoke today and felt acutely short of breath. He went for his outpatient hd treatment today, but he developed worsening shortness of breath after approximately 30 minutes and he was referred to the er for further work-up. On presentation, his cxr revealed pulmonary edema and pneumonia. he was found to have respiratory distress and was placed on bipap. Further work-up revealed a SBP > 200. Nephrology was consulted for further management of his esrd Review of Systems General: Reports: 10 or more systems reviewed and unremarkable except in HPI and below Const: Reports: malaise Medications/Allergies Home Medications ?Medication ?Instructions ?Recorded ?Confirmed ?Last Taken ?Type amlodipine 5 mg tablet 5 mg PO QPM 06/09/24 06/09/24 Unknown History bumetanide 2 mg tablet See Rx Instructions .Route .COMPLEX 06/09/24 06/09/24 Unknown History buspirone 5 mg tablet 5 mg PO TID 06/09/24 06/09/24 Unknown History calcitriol 0.25 mcg capsule 0.75 mcg PO DAILY 06/09/24 06/09/24 Unknown History carvedilol 25 mg tablet 50 mg PO TID 06/09/24 06/09/24 Unknown History clonidine HCl 0.3 mg tablet 0.3 mg PO TID 06/09/24 06/09/24 Unknown History furosemide 80 mg tablet 80 mg PO BID 06/09/24 06/09/24 Unknown History gabapentin 100 mg capsule See Rx Instructions .Route .COMPLEX 06/09/24 06/09/24 Unknown History hydralazine 100 mg tablet 100 mg PO TID 06/09/24 06/09/24 Unknown History insulin lispro 100 unit/mL See Rx Instructions .Route .COMPLEX 06/09/24 06/09/24 Unknown History subcutaneous pen lisinopril 20 mg tablet 20 mg PO DAILY 06/09/24 06/09/24 Unknown History loperamide 2 mg capsule See Rx Instructions .Route .COMPLEX 06/09/24 06/09/24 Unknown History megestrol 40 mg tablet 40 mg PO BID 06/09/24 06/09/24 Unknown History mirtazapine 15 mg tablet 7.5 mg PO DAILY 06/09/24 06/09/24 Unknown History nifedipine 30 mg tablet,extended 30 mg PO DAILY 06/09/24 06/09/24 Unknown History release pantoprazole 40 mg tablet,delayed 40 mg PO DAILY 06/09/24 06/09/24 Unknown History release ropinirole 0.5 mg tablet 0.5 mg PO QPM 06/09/24 06/09/24 Unknown History sevelamer carbonate 800 mg tablet See Rx Instructions .Route .COMPLEX 06/09/24 06/09/24 Unknown History sodium bicarbonate 325 mg tablet 325 mg PO DAILY 06/09/24 06/09/24 Unknown History venlafaxine 150 mg 150 mg PO DAILY 06/09/24 06/09/24 Unknown History capsule,extended release 24 hr vit B,C-folic ac 800 mcg-zinc 12.5 See Rx Instructions .Route .COMPLEX 06/09/24 06/09/24 Unknown History mg-selen-D3 2,000 unit-vit E tablet (RenaPlex-D) Allergies Allergy/AdvReac Type Severity Reaction Status Date / Time No Known Allergies Allergy Verified 03/19/24 15:01 PFSH Acute PFSH: Medical History Ingrowing toenail of left foot Hematoma of leg Non-pressure chronic ulcer of 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 Bilateral pes planus Medical non-compliance Hypertensive urgency Closed right trimalleolar fracture Restless leg syndrome Peritonitis CAD (coronary artery disease) Depression End-stage renal disease on peritoneal dialysis Anemia Surgical History Hx of CABG Social History Smoking and tobacco/nicotine status: former use of tobacco/nicotine Alcohol intake: never Substance/Drug Use: current Other substance/drug use details: Medical marijuana Vitals/I&O/Wt Last Vital Signs Temp 97.2 F L 06/09/24 12:53 Pulse 81 06/09/24 14:59 Resp 27 H 06/09/24 13:55 BP 170/101 06/09/24 14:59 Pulse Ox 99 06/09/24 14:59 O2 Del Method Room Air 06/09/24 14:59 FiO2 60 06/09/24 13:57 Weight last 48 hrs Weight 65.771 kg Physical Exam Const: COMMON NORMALS: average body habitus GENERAL APPEARANCE: in distress ORIENTATION/CONSCIOUSNESS: Yes awake, Yes oriented to person and Yes oriented to place HENMT: COMMON NORMALS: normocephalic HEAD & SCALP: normocephalic Eye: COMMON NORMALS: EOMs intact bilaterally and no scleral icterus Neck/C-Spine: COMMON NORMALS: no JVD Resp: EFFORT & INSPECTION: Yes decreased respiratory effort AUSCULTATION: diminished lung sounds Cardio: COMMON NORMALS: no JVD, regular rate, regular rhythm, S1 normal heart sound present, S2 normal heart sound present and No gallops present (Cardio) JUGULAR VENOUS DISTENTION: no JVD RATE: regular rate RHYTHM: regular rhythm HEART SOUNDS: S1 normal heart sound present and S2 normal heart sound present GI: COMMON NORMALS: Soft to palpation and non-tender PALPATION: Yes Soft to palpation Extremity: NARRATIVE EXTREMITY EXAM: trace RLE edema Neuro: SENSORIUM/ORIENTATION: Yes oriented to person and Yes oriented to place Skin: COMMON NORMALS: no rashes or lesions noted GENERAL SKIN EXAM: no rashes or lesions noted Data 06/09/24 12:54 06/09/24 12:54 Micro: Microbiology 06/09/24 13:12 Blood Culture - Preliminary Blood SPECIMEN COLLECTED 06/09/24 13:10 Blood Culture - Preliminary Blood SPECIMEN COLLECTED A&P Assessment and plan (1) ESRD (end stage renal disease): ESRD- HE is on hd on tts schedule and has evidence of pulmonary edema. I will plan on hd today with uf as tolerated. acute hypoxic respiratory failure- due to pneumonia and pulmonary edema. On abx. I will plan on hd today with uf as tolerated. hypertensive urgency- i expect his bp contol to improve with uf with hd. resume anti-hypertensive medications hyperkalemia- i will use a low k dialysate pneumonia- on abx per the primary service hypercalcemia- i will cont to monitor. secondary hyperparathyroidism of renal origin - resume sevelamer with meals PDMP PDMP Reviewed: Not Reviewed Consult Attestations Time Spent in Patient Care: 50 minutes Coding Level of Care Code Acute Code for [facility] Diagnoses ESRD (end stage renal disease) N18.6
[2024-06-09 15:33] LABS: Hepatitis B Surface AB 156.7 (11.5-1000); Hepatitis B Surface Antigen Non-Reactive (Nonreactive)
[2024-06-09] MEDS: heparin, porcine 1,000 unit/mL INJ 10 mL 1000 UNIT IV (16:03)
[2024-06-09] MEDS: heparin 5,000 unit/mL INJ 1 mL 5000 UNIT SUBCUT (16:06)
[2024-06-09] MEDS: cefTRIAXone 1,000 mg SDV 1000 MG IVP (16:07)
[2024-06-09 17:54] LABS: Hepatitis C Virus Antibody Non-Reactive (Nonreactive)
[2024-06-09 18:10] LABS: Glucose Point of Care 102 mg/dL (70-110)
--- NOTE | 2024-06-09 18:55 | ECG_ITS ---
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 Measurements Intervals Effie Rate: 80 P: 76 ME: 169 QRS: 54 QRSD: 95 T: 146 QT: 438 QTc: 506 Interpretive Statements SINUS RHYTHM POSSIBLE LEFT ATRIAL ENLARGEMENT [-0.1mV P-WAVE IN V1/V2] ST DEVIATION AND MODERATE T-WAVE ABNORMALITY, CONSIDER LATERAL ISCHEMIA [-0.1+ mV T-WAVE IN I/aVL/V5/V6] Compared to ECG 06/09/2024 14:51:06 Myocardial infarct finding no longer present T-wave abnormality still present Possible ischemia still present Electronically Signed On 06-10-2024 12:45:06 SHERIFFS OFFICER by Magda Woodard M.D. [email or web address]
[2024-06-09] MEDS: ropinirole 0.25 mg Tablet 0.5 MG PO (19:08)
[2024-06-09] MEDS: gabapentin 100 mg Capsule 200 MG PO (19:09)
[2024-06-09] MEDS: FUROsemide 40 mg Tablet 80 MG PO (19:09)
[2024-06-09 19:13] LABS: Troponin 5 6HR 330.7 ng/L (0-15)
[2024-06-09 19:14] LABS: Troponin 5 6HR Delta 22.7 ng/L (0-12)
[2024-06-09 19:49] LABS: Glucose Point of Care 126 mg/dL (70-110)
[2024-06-09] MEDS: albuterol 2.5 mg/3 mL Neb INHALATION (20:22)
[2024-06-09] MEDS: cloNIDine 0.1 mg Tablet 0.3 MG PO (20:44)
[2024-06-09] MEDS: BuSPIRONE 10 mg Tablet 5 MG PO (20:45)
[2024-06-09] MEDS: loperamide 2 mg Capsule PO (20:45)
[2024-06-09] MEDS: sevelamer 800 mg Tablet PO (20:45)
[2024-06-09] MEDS: hyDRALAzine 50 mg Tablet 100 MG PO (20:45)
[2024-06-09] MEDS: carvedilol 25 mg Tablet 50 MG PO (20:45)
[2024-06-10] VITALS (60 sets, daily range): BP systolic 153–179; BP diastolic 85–101; PULSE 67–77; RESP 0–28; TEMP 36.7; O2SAT 85–100
[2024-06-10] MEDS: albuterol 2.5 mg/3 mL Neb INHALATION (02:20)
[2024-06-10] MEDS: heparin 5,000 unit/mL INJ 1 mL 5000 UNIT SUBCUT (03:19)
[2024-06-10 04:45] LABS: Basophils % 0.2 %; Eosinophils % 0.5 %; Hematocrit 28.6 % (37-53); Lymphocytes # 0.6 10^3/uL (0.8-4.8); Lymphocytes % 6.8 %; Mean Corpuscular HGB Conc 31.1 g/dL (30-55); Mean Corpuscular Hemoglobin 29.9 pg (27-33); Mean Platelet Volume 10.9 fL (7.4-10.4); Monocytes # 0.5 10^3/uL (0.2-0.9); Monocytes % 6.3 %; Neutrophils # 7.01 10^3/uL (1.8-7.7); Neutrophils % 85.7 %; Nucleated Red Blood Cells % 0 %; Platelet Count 182 10^3/cmm (157-399); Red Blood Count 2.98 10^6/uL (3.85-5.65); White Blood Count 8.19 10^3/uL (3.29-11.43)
[2024-06-10 05:01] LABS: Anion Gap 22.3 (5-19); Blood Urea Nitrogen 18 mg/dL (6-20); Calcium 9.7 mg/dL (8.5-10.5); Carbon Dioxide 22 mmol/L (22-29); Chloride 98 mmol/L (98-107); Creatinine Clr Calc Pharmacy 34.5524; Glomerular Filtration Rate 24.7 mL/min (90-130); Glucose 213 mg/dL (65-115); Magnesium 2.3 mg/dL (1.7-2.3); Osmolality Calculated 294 mOsm/kg (285-295); Phosphorus 3.5 mg/dL (2.5-4.5); Potassium 4.3 mmol/L (3.5-5.1); Sodium 138 mmol/L (136-145)
[2024-06-10] MEDS: cloNIDine 0.1 mg Tablet 0.3 MG PO (06:29)
[2024-06-10] MEDS: hyDRALAzine 50 mg Tablet 100 MG PO (06:29)
[2024-06-10] MEDS: lisinopril 20 mg Tablet PO (06:30)
[2024-06-10] MEDS: carvedilol 25 mg Tablet 50 MG PO (06:30)
[2024-06-10] MEDS: NIFEdipine ER (24 hr) 30 mg Tablet PO (06:30)
[2024-06-10 07:38] LABS: Glucose Point of Care 196 mg/dL (70-110)
--- NOTE | 2024-06-10 07:58 | P.DS_ITS ---
Discharge Providers Date of Admission: 06/09/24 14:21 Date of Discharge: June 10, 2024 Attending Provider at Admission: René Xiao MD Attending Provider at Discharge: René Xiao MD Consults: Nephrology Primary Care Provider: Yaniv Moe MD Diagnoses at Discharge Discharge Diagnosis (1) ESRD (end stage renal disease): Status: Acute Reason for Visit Reason for Visit: resp distress Hospital Course Hospital Course Jose Guadalupe Claudio is a 43 year old male with a past medical history significant for end-stage renal disease on hemodialysis, hypertension, coronary artery disease status post CABG, restless leg syndrome, and multiple other comorbidities who presents from dialysis center with respiratory distress, found to have left basilar community-acquired pneumonia resulting in severe sepsis producing acute hypoxic respiratory failure requiring BiPAP with superimposed acute pulmonary edema secondary to fluid overload from end-stage renal disease. He was treated with ceftriaxone and azithromycin for pneumonia. He was found to have hyperkalemia secondary to ESRD. He underwent dialysis. His recovery is quicker than expected. Hypoxia resolved. He was transition to cefdinir and azithromycin at discharge. Patient was found to have elevated troponin with flat curve. There was concern for possible VTE for which ultrasound right lower extremity was negative for deep vein thrombosis. Patient discharged home in stable condition. He will follow-up with his primary provider within 1 week. He is to return to his normally scheduled dialysis ses sions. Physical Exam Narrative: General: Patient is awake. Alert. Very pleasant. Conversational. Head: Normocephalic. Atraumatic. EOM intact. Neck: No JVD. Cardiovascular: RRR. No gallops. No murmurs. Hypertensive. Lungs: Markedly improved air movement. No crackles. Very faint left basilar rhonchi. No wheezing. Skin: No jaundice. No rashes. Abdomen: Normal bowel sounds, abdomen soft and nontender. Extremities: No cyanosis or clubbing. Musculoskeletal: No erythematous joints. Neurological: Moves all 4 extremities. No myoclonus. Discharge Data Studies Completed and Pending Completed Studies During Hospitalization Category Date Time Status XR chest 1V portable [id number] Stat Exams 06/09/24 12:54 Completed Pending at discharge Category Date Time Status Blood Culture Stat Lab 06/09/24 13:12 Results Sputum Culture and Gram Stain Stat Lab 06/09/24 13:48 Uncollected Urinalysis Stat Lab 06/09/24 12:55 [place] [id number] Routine Ultrasound 06/10/24 15:30 Ordered Radiology Impressions Chest X-Ray 06/09/24 12:54 IMPRESSION: 1. Focal dense infiltrates in left lower lobe suspicious for acute pneumonia. Recommend short-term follow-up. 2. Cardiomegaly with minimal pulmonary edema. Laboratory Results WBC 8.19 10^3/uL (3.29-11.43) 06/10/24 04:19 RBC 2.98 10^6/uL (3.85-5.65) L 06/10/24 04:19 Hgb 8.90 g/dL (11.27-16.99) L 06/10/24 04:19 Hct 28.6 % (37-53) L 06/10/24 04:19 MCV 96.0 fl (82-101) 06/10/24 04:19 MCH 29.9 pg (27-33) 06/10/24 04:19 MCHC 31.1 g/dL (30-55) 06/10/24 04:19 RDW 18.0 % (12.1-15.1) H 06/10/24 04:19 Plt Count 182 10^3/cmm (157-399) D 06/10/24 04:19 MPV 10.9 fL (7.4-10.4) H 06/10/24 04:19 Neut % (Auto) 85.7 % 06/10/24 04:19 Lymph % (Auto) 6.8 % 06/10/24 04:19 Crenshaw % (Auto) 6.3 % 06/10/24 04:19 Eos % (Auto) 0.5 % 06/10/24 04:19 Baso % (Auto) 0.2 % 06/10/24 04:19 Neut # (Auto) 7.01 10^3/uL (1.8-7.7) 06/10/24 04:19 Lymph # (Auto) 0.6 10^3/uL (0.8-4.8) L 06/10/24 04:19 Crenshaw # (Auto) 0.5 10^3/uL (0.2-0.9) 06/10/24 04:19 Eos # (Auto) 0.0 10^3/uL (0.0-0.8) 06/10/24 04:19 Baso # (Auto) 0.0 10^3/uL (0.0-0.1) 06/10/24 04:19 Nucleated RBC % (auto) 0 % 06/10/24 04:19 Nucleated RBCs # 0.0 /100WBC 06/10/24 04:19 D-Dimer 1.34 ug/mLFEU (0-0.59) H 06/09/24 12:54 Specimen Type Arterial 06/09/24 12:46 Sample Site Radial, left 06/09/24 12:46 ABG pH 7.46 (7.35-7.45) H 06/09/24 12:46 ABG pCO2 34.8 mmHg (35-45) L 06/09/24 12:46 ABG pO2 57.3 mmHg (80.0-100.0) L 06/09/24 12:46 ABG HCO3 24.5 mmol/L (22-26) 06/09/24 12:46 ABG O2 Saturation 90.0 06/09/24 12:46 ABG Base Excess 0.8 mmol/L (-2.0-2.0) 06/09/24 12:46 Otoniel Test Pos 06/09/24 12:46 A-a O2 Gradient 6.4 mmHg (5-10) 06/09/24 12:46 Hematocrit 34.1 % (42-52) L 06/09/24 12:46 Hgb O2 Saturation 87.5 % (95-100) L 06/09/24 12:46 Carboxyhemoglobin 1.6 %THgb (0.4-20.1) 06/09/24 12:46 Methemoglobin 1.1 % (0.4-1.5) 06/09/24 12:46 Total Hemoglobin 11.1 g/dL (14-18) L 06/09/24 12:46 Sodium 138.0 mmol/L (131-143) 06/09/24 12:46 Potassium 5.2 mmol/L (3.5-5.0) H 06/09/24 12:46 Glucose 213.0 mg/dL (70-115) H 06/09/24 12:46 Ionized Calcium 1.3 mmol/L (1.1-1.4) 06/09/24 12:46 O2 Delivery Device Bipap 06/09/24 12:46 O2 Liters/Min 15.0 % 06/09/24 12:46 PEEP 10.0 cmH20 06/09/24 12:46 Unarmed Security Officer ID Stan 06/09/24 12:46 Sodium 138 mmol/L (136-145) 06/10/24 04:19 Potassium 4.3 mmol/L (3.5-5.1) 06/10/24 04:19 Chloride 98 mmol/L (98-107) 06/10/24 04:19 Carbon Dioxide 22 mmol/L (22-29) 06/10/24 04:19 Anion Gap 22.3 (5-19) H 06/10/24 04:19 BUN 18 mg/dL (6-20) 06/10/24 04:19 Creatinine 2.8 mg/dL (0.7-1.2) H 06/10/24 04:19 GFR Calculation 24.7 mL/min (90-130) L 06/10/24 04:19 Glucose 213 mg/dL (65-115) H 06/10/24 04:19 POC Glucose 196 mg/dL (70-110) H 06/10/24 07:20 Calculated Osmolality 294 mOsm/kg (285-295) 06/10/24 04:19 Lactic Acid 1.5 mmol/L (0.5-2.2) 06/09/24 12:54 Calcium 9.7 mg/dL (8.5-10.5) 06/10/24 04:19 Phosphorus 3.5 mg/dL (2.5-4.5) 06/10/24 04:19 Magnesium 2.3 mg/dL (1.7-2.3) 06/10/24 04:19 Total Bilirubin 0.8 mg/dL (0.15-1.2) 06/09/24 12:54 AST 15 U/L (0-40) 06/09/24 12:54 ALT 9 U/L (0-41) 06/09/24 12:54 Alkaline Phosphatase 77 U/L (40-130) 06/09/24 12:54 Troponin T Baseline 308 ng/L (0-15) H* 06/09/24 12:54 Troponin T 120 Minute 290.7 ng/L (0-15) H 06/09/24 14:47 Delta Troponin T -17.3 ABS# (0-10) L 06/09/24 14:47 Troponin T Hi Sens 6Hr 330.7 ng/L (0-15) H 06/09/24 18:43 Troponin T Hi Sens 6Hr Delta 22.7 ng/L (0-12) H* 06/09/24 18:43 Total Protein 8.2 g/dL (6.6-8.7) 06/09/24 12:54 Albumin 4.4 g/dL (3.5-5.2) 06/09/24 12:54 Globulin 3.8 g/dL (1.3-4.6) 06/09/24 12:54 Procalcitonin 0.55 ng/mL (0-0.5) H 06/09/24 12:54 Hep Bs Antigen Non-reactive (Nonreactive) 06/09/24 12:54 Hep Bs Antibody 156.7 (11.5-1000) 06/09/24 12:54 Hepatitis C Antibody Non-reactive (Nonreactive) 06/09/24 12:54 Influenza A (PCR) Negative (Negative) 06/09/24 13:09 Influenza Type B (PCR) Negative (Negative) 06/09/24 13:09 RSV (PCR) Negative (Negative) 06/09/24 13:09 SARS-CoV-2 (PCR) Negative (Negative) 06/09/24 13:09 Vitals Last Vital Signs Temp 98.1 F 06/10/24 07:45 Pulse 68 06/10/24 07:45 Resp 24 H 06/10/24 07:45 BP 174/98 06/10/24 07:45 Pulse Ox 95 06/10/24 07:45 O2 Del Method Room Air 06/10/24 07:45 O2 Flow Rate 5 06/10/24 02:10 FiO2 40 06/09/24 20:25 Discharge Plan Discharge Patient Disposition: Home Condition: Stable Prescriptions: New cefdinir 300 mg capsule 300 mg PO .Three times weekly 9 Days Qty: 3 0RF Rx Instructions: Take after dialysis azithromycin 250 mg tablet 250 mg PO DAILY 5 Days Qty: 5 0RF Continued buspirone 5 mg tablet 5 mg PO TID carvedilol 25 mg tablet 50 mg PO TID bumetanide 2 mg tablet See Rx Instructions .ROUTE .COMPLEX Rx Instructions: TAKE 1 TABLET BY MOUTH ONCE DAILY ON NON-DIALYSIS DAY loperamide 2 mg capsule See Rx Instructions .ROUTE .COMPLEX Rx Instructions: TAKE 1 CAPSULE BY MOUTH IN THE MORNING AND 3 IN THE EVENING sodium bicarbonate 325 mg tablet 325 mg PO DAILY lisinopril 20 mg tablet 20 mg PO DAILY clonidine HCl 0.3 mg tablet 0.3 mg PO TID venlafaxine 150 mg capsule,extended release 24hr 150 mg PO DAILY nifedipine 30 mg tablet extended release 30 mg PO DAILY amlodipine 5 mg tablet 5 mg PO QPM furosemide 80 mg tablet 80 mg PO BID hydralazine 100 mg tablet 100 mg PO TID pantoprazole 40 mg tablet,delayed release (DR/EC) 40 mg PO DAILY ropinirole 0.5 mg tablet 0.5 mg PO QPM megestrol 40 mg tablet 40 mg PO BID mirtazapine 15 mg tablet 7.5 mg PO DAILY gabapentin 100 mg capsule See Rx Instructions .ROUTE .COMPLEX Rx Instructions: TAKE 2 CAPSULES BY MOUTH IN THE EVENING AND 1 AT BEDTIME calcitriol 0.25 mcg capsule 0.75 mcg PO DAILY insulin lispro 100 unit/mL insulin pen See Rx Instructions .ROUTE .COMPLEX Rx Instructions: subcutaneously sevelamer carbonate 800 mg tablet See Rx Instructions .ROUTE .COMPLEX Rx Instructions: TAKE 2 TABLETS BY MOUTH WITH THE LARGEST MEAL OF THE DAY AND 1 TABLET WITH OTHER MEALS (4 TABLETS TOTAL PER DAY) RenaPlex-D 800 mcg-12.5 mg -2,000 unit tablet See Rx Instructions .ROUTE .COMPLEX Rx Instructions: TAKE 1 TABLET BY MOUTH EVERY DAY (ON DIALYSIS DAYS, TAKE AFTER DIALYSIS T REATMENT) Discharge Orders: Discharge Order (Routine); Ordered 06/10/24 Ordered By: René Xiao Referrals: Yaniv Moe MD [Primary Care Provider] - Discharge Diet: Advance as tolerated and Usual diet Discharge Activity: Resume usual activity and Increase activity as tolerated Patient Instructions: Azithromycin (By mouth), Cefdinir (By mouth), Viral Pneumonia (DC), Hyperkalemia (DC), End Stage Kidney Disease (DC), Opioid Safety Plan of Treatment: 1. Take medications as prescribed. 2. Follow-up with primary provider within 1 week. Discharge Attestations Time Spent in Discharge Care*: greater than 30 min Quality Metrics Clinical Quality Measures [ No reported AMI, CVA or VTE this stay] Coding Level of Care Code Acute Code for Chg Fwd Diagnoses ESRD (end stage renal disease) N18.6
[2024-06-10] MEDS: FUROsemide 40 mg Tablet 80 MG PO (08:26)
[2024-06-10] MEDS: mirtazapine 15 mg Tablet 7.5 MG PO (08:26)
[2024-06-10] MEDS: loperamide 2 mg Capsule PO (08:26)
[2024-06-10] MEDS: sevelamer 800 mg Tablet PO (08:27)
[2024-06-10] MEDS: pantoprazole DR 40 mg Tablet PO (08:27)
[2024-06-10] MEDS: venlafaxine ER (24HR) 150 mg Capsule PO (08:27)
[2024-06-10] MEDS: sodium bicarbonate 650 mg Tablet 325 MG PO (08:27)
[2024-06-10] MEDS: BuSPIRONE 10 mg Tablet 5 MG PO (08:27)
[2024-06-10] MEDS: gabapentin 100 mg Capsule PO (08:27)
[2024-06-10] MEDS: calcitriol 0.25 mcg Capsule 0.75 MCG PO (08:27)
[2024-06-10] MEDS: insulin lispro 100 unit/1 mL SUBCUT (08:28)
--- NOTE | 2024-06-10 10:28 | PC.NURSE ---
Patient discharged. Bilateral IVs removed. New appointment and new medication education provided. Medications sent to [facility] pharmacy. Discharged with spouse. Patient signature form signed.
--- NOTE | 2024-06-10 15:30 | USR_ITS ---
PROCEDURE INFORMATION: Exam: US Duplex Right Lower Extremity Veins, Limited Exam date and time: 06/10/2024 8:35 AM Age: 43 years old Clinical indication: Screening exam; Eval for dvt; Additional info: Eval for dvt, in dialysis TECHNIQUE: Imaging protocol: Real-time duplex ultrasound of the right extremity with 2-D deal scale, color Doppler flow and spectral waveform analysis including responses to compression and other maneuvers (when performed) with image documentation. Limited exam was focused on the right lower extremity veins. COMPARISON: CT abdomen pelvis wo con [id number] 01/16/2024 7:53 PM FINDINGS: Right deep veins: Unremarkable. The common femoral, femoral, proximal profunda femoral and popliteal veins are patent without thrombus. The peroneal vein and posterior tibial vein are patent. Normal Doppler waveforms. Normal compressibility and/or augmentation response. Superficial veins: Greater saphenous vein at the saphenofemoral junction is patent without thrombus. Soft tissues: There is a popliteal fossa King's cyst measuring 2.2 x 0.8 x 4.4 cm. US/[place] [id number] IMPRESSION: 1. No evidence of deep vein thrombosis. 2. Popliteal fossa King's cyst
== END 2024-06-10 10:29 | disposition home or self-care (01) ==
LOC: ER 13:32 → ICU 14:48
PROVIDERS: Internal Medicine Nephrology; Admitting Provider Internal Medicine; Emergency Provider Family Medicine; PCP Family Medicine; Visit Provider Internal Medicine
DX: A41.9 Sepsis, unspecified organism (principal); R65.20 Severe sepsis without septic shock; J18.9 Pneumonia, unspecified organism; E11.22 Type 2 diabetes mellitus with diabetic chronic kidney disease; I16.0 Hypertensive urgency; N25.81 Secondary hyperparathyroidism of renal origin; J96.01 Acute respiratory failure with hypoxia; E87.5 Hyperkalemia; N18.6 End stage renal disease; Z99.2 Dependence on renal dialysis; I12.0 Hypertensive chronic kidney disease with stage 5 chronic kidney disease or end stage renal disease; I25.10 Atherosclerotic heart disease of native coronary artery without angina pectoris; Z95.1 Presence of aortocoronary bypass graft; G25.81 Restless legs syndrome; E87.1 Hypo-osmolality and hyponatremia; E83.52 Hypercalcemia; Z11.52 Encounter for screening for COVID-19; Z79.899 Other long term (current) drug therapy; Z87.891 Personal history of nicotine dependence; M79.89 Other specified soft tissue disorders; Z79.4 Long term (current) use of insulin
CPT/HCPCS: 36415; 36416; 36600; 71045; 80048; 80051; 80053; 82330; 82805; 82962; 83605; 83735; 84100; 84145; 84484; 85025; 85378; 86706; 86803; 87040; 87340; 87637; 90935; 93005; 93971; 94640; 94660; 94664; 96365; 96372; 96374; 96375; 96376; 99291; G0378; J0696; J1100; J1644; J1815; J2543; J3490; J7613; Q3014

== ENCOUNTER 2024-08-16 12:42 | Inpatient (IN) | payer MEDICARE, SELFPAY ==
[2024-08-16] VITALS (60 sets, daily range): BP systolic 169–215; BP diastolic 99–130; PULSE 61–82; RESP 10–33; TEMP 36.7–37; O2SAT 77–100; BMI 20.3; BMI 20.9
--- NOTE | 2024-08-16 12:46 | ECG_ITS ---
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 Measurements Intervals Clancy Rate: 78 P: 68 IA: 172 QRS: 33 QRSD: 104 T: 26 QT: 465 QTc: 532 Interpretive Statements SINUS RHYTHM POSSIBLE LEFT ATRIAL ENLARGEMENT [-0.1mV P-WAVE IN V1/V2] SEPTAL MYOCARDIAL INFARCTION , OF INDETERMINATE AGE [40+ ms Q WAVE IN V1/V2] Compared to ECG 06/09/2024 17:42:16 Myocardial infarct finding now present T-wave abnormality no longer present Possible ischemia no longer present Electronically Signed On 08-17-2024 13:41:56 CDT by Julio Monaco M.D. [email or web address]
--- NOTE | 2024-08-16 13:01 | XR_ITS ---
WS: [id number] XR chest 1V portable [id number] REASON FOR EXAM: weakness, sob FINDINGS: Right IJ dialysis catheter in proper position. Sternal sutures/previous coronary artery bypass surgery. Moderate tortuosity of the thoracic aorta. Cardiomegaly. Central pulmonary venous congestion. Compared to the previous examination of 06/09/2024. There has been significant resolution of the performed airspace consolidation in the left lower lung. There is an increased to the reticular interstitial lung opacities in the lower lungs with peribronchial cuffing. No significant bony thorax abnormality. XR/XR chest 1V portable [id number] IMPRESSION: Resolving airspace consolidation in the left lung with minimal residual. Findings indicative of early pulmonary edema either secondary to congestive hea rt failure or fluid and balance due to the renal failure.
[2024-08-16 13:11] LABS: Basophils # 0.1 10^3/uL (0.0-0.1); Basophils % 0.6 %; Eosinophils % 0.1 %; Hematocrit 32.9 % (37-53); Lymphocytes # 0.8 10^3/uL (0.8-4.8); Lymphocytes % 6.1 %; Mean Corpuscular HGB Conc 31.3 g/dL (30-55); Mean Corpuscular Volume 92.7 fl (82-101); Mean Platelet Volume 11.6 fL (7.4-10.4); Monocytes # 0.8 10^3/uL (0.2-0.9); Monocytes % 5.8 %; Neutrophils # 11.87 10^3/uL (1.8-7.7); Neutrophils % 86.7 %; Nucleated Red Blood Cells % 0.1 %; Platelet Count 218 10^3/cmm (157-399); Red Blood Count 3.55 10^6/uL (3.85-5.65); Red Cell Distribution Width 15.5 % (12.1-15.1); White Blood Count 13.69 10^3/uL (3.29-11.43)
[2024-08-16 13:15] LABS: ABG PCO2 31.3 mmHg (35-45); ABG PH Result 7.49 (7.35-7.45); Arterial Blood Gas Hematocrit 30.3 % (42-52); Base Excess ABG 0.8 mmol/L (-2.0-2.0); Blood Gas Allen Test Pos; Blood Gas Operator Identificat WALCI; Blood Gas Sample Site Radial, left; Blood Gas Sample Type Arterial; HCO3 ABG 23.7 mmol/L (22-26); Oxygen Device NC; PO2 ABG 41.4 mmHg (80.0-100.0)
[2024-08-16 13:21] LABS: Lactic Sepsis W/Reflex 2.6 mmol/L (0.5-2.2)
--- NOTE | 2024-08-16 13:24 | W.ED.WEAKNES ---
HPI - Weakness General: Chief complaint: Weakness Stated complaint: hpyertension - weakness Time Seen by Provider: 08/16/24 12:45 History of Present Illness: 43-year-old male with history of end-stage renal disease on hemodialysis (TTS schedule) presents with several days of weakness, shortness of breath, and poor appetite. Patient reports symptoms began a few days ago. He denies fever, significant cough, though notes occasional productive cough with minimal phlegm. Patient had his last dialysis session on Tuesday and reports completing the full course, though was experiencing some weakness at that time. He maintains minimal urine output (couple times daily). Of note, patient was recently diagnosed with coronavirus approximately 2 weeks ago (June 21, 2024) and was treated for pneumonia with antibiotics (specific antibiotic unclear). Patient has significant past medical history including COVID-19 in 2019 complicated by cardiac arrest, coma, stroke, and need for tracheostomy. During that hospitalization, he developed MRSA infections which, along with subsequent treatments, contributed to his kidney failure. [facility] ED PFSH: Medical History Ingrowing toenail of left foot Hematoma of leg Non-pressure chronic ulcer of 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 Bilateral pes planus Medical non-compliance Hypertensive urgency Closed right trimalleolar fracture Restless leg syndrome Peritonitis CAD (coronary artery disease) Depression End-stage renal disease on peritoneal dialysis Anemia Surgical History Hx of CABG Social History Smoking and tobacco/nicotine status: former use of tobacco/nicotine Alcohol intake: never Substance/Drug Use: current Other substance/drug use details: Medical marijuana Physical Exam Const: COMMON NORMALS: no acute distress OTHER: Chronically ill-appearing 43-year-old male in no acute distress HENMT: COMMON NORMALS: normocephalic, atraumatic and hearing grossly normal bilaterally HEAD & SCALP: normocephalic and atraumatic Eye: COMMON NORMALS: Equal, round and reactive pupils present and EOMs intact bilaterally PUPIL: Yes Equal, round and reactive pupils present Resp: OTHER: Mild increased work of breathing with tachypnea noted Cardio: COMMON NORMALS: regular rate and Peripheral pulses 2+ throughout RATE: regular rate PERIPHERAL PULSES: Peripheral pulses 2+ throughout GI: COMMON NORMALS: Normal to inspection, nondistended, normoactive bowel sounds present Extremity: COMMON NORMALS: normal to inspection Course Vital Signs: Vital signs: Vital Signs Temperature 98.0 F 08/16/24 12:43 Pulse Rate 69 08/16/24 15:00 Respiratory Rate 16 08/16/24 12:43 Blood Pressure 173/130 08/16/24 15:00 Pulse Oximetry 100 08/16/24 15:00 Oxygen Delivery Me thod BiPAP 08/16/24 15:00 Fraction of Inspir ed Oxygen 65 08/16/24 13:26 MDM - Weakness Medical Decision Making Review of Systems: Constitutional: Positive for weakness, fatigue, poor appetite Respiratory: Positive for shortness of breath, minimal productive cough Cardiovascular: Reports elevated blood pressure today Gastrointestinal: Denies nausea/vomiting, normal bowel movements Genitourinary: Minimal urine output (couple times daily) Neurological: Baseline right-sided weakness from previous stroke All other systems negative or not reviewed Medications: Recent antibiotic therapy for pneumonia Past Medical History: End-stage renal disease on hemodialysis since 2019 COVID-19 in 2019 with complications including: - Cardiac arrest - Coma - Stroke with right-sided weakness - Required tracheostomy History of MRSA infections Recent coronavirus/pneumonia (June 2024) Hypertension Past Surgical History: Tracheostomy (2019, now removed) Dialysis access placement Social History: Medical cannabis user (reports abstaining for past week due to current symptoms) Dialysis schedule: Tuesday//Tuesday Vital Signs: Patient noted to be on 4L oxygen via nasal cannula Physical Exam: General: Chronically ill appearing gentleman in no acute distress HEENT: Noted previous tracheostomy site Respiratory: Clear breath sounds bilaterally with mild tachypnea Extremities: Right-sided weakness noted (baseline) Neuro: Right leg weakness and right pinky weakness (baseline) Lab Results: Pending Imaging and Other Relevant Results: Chest X-ray ordered Medical Decision Making: Summary Statement: 43-year-old male with ESRD on hemodialysis presents with weakness, shortness of breath, and poor appetite, recently treated for coronavirus/pneumonia, now requiring oxygen supplementation. Problem List: 1. Acute hypoxia 2. Weakness 3. Poor appetite 4. ESRD on hemodialysis 5. Recent pneumonia Differential Diagnosis: Volume overload, pneumonia (new vs. residual), uremia, medication side effects, cardiac etiology, post-viral syndrome ED Course: Patient placed on oxygen supplementation. Labs and chest X-ray ordered to evaluate current condition. Will assess volume status and need for urgent dialysis. Assessment and Plan: 1. Acute hypoxia and weakness: - Obtain chest X-ray to evaluate for pulmonary edema vs. residual pneumonia - Check basic labs including CBC, CMP, troponin - Continue oxygen supplementation and monitor oxygen requirements 2. ESRD: - Review most recent dialysis adequacy - Assess volume status and need for urgent dialysis - Check electrolytes and renal function 3. Recent pneumonia/coronavirus: - Review recent treatment course and antibiotic completion - Assess for post-infectious complications Patient is a chronically ill 43-year-old male with end-stage renal disease who had only received about 10 minutes of dialysis today before being sent to the ER for hypoxia and weakness. He was satting 77% on 4 L of nasal cannula here. EKG was sinus rhythm without ischemic ST elevation or depressions. Patient was placed on BiPAP due to concern for possible fluid overload although he did not sound overtly congested on exam. Chest x-ray shows left lower lobe infiltrate that appears improved compared to previous. Troponin is 300. CTA of the chest was performed which shows small right upper lobe PE without any evidence of heart strain. He does have bilateral lower lobe infiltrates noted on CT chest as well as some pulmonary congestion. Patient was only given 250 mL of normal saline due to him having end-stage renal disease and on hemodialysis and appearing fluid overloaded. He was started on broad-spectrum antibiotics with vancomycin and cefepime. I did speak with nephrology who stated that he would be able to receive dialysis either later today or first thing tomorrow and they would consult and see him this afternoon. Patient has been accepted for admission to the ICU by the hospitalist Dr. Singh. Patient will be started on a heparin drip. Lab Data I reviewed the patient's lab results. 08/16/24 12:25 08/16/24 12:25 Radiology Impressions Chest X-Ray 08/16/24 13:01 IMPRESSION: Resolving airspace consolidation in the left lung with minimal residual. Findings indicative of early pulmonary edema either secondary to congestive heart failure or fluid and balance due to the renal failure. Laboratory Results WBC 13.69 10^3/uL (3.29-11.43) H 08/16/24 12:25 RBC 3.55 10^6/uL (3.85-5.65) L 08/16/24 12:25 Hgb 10.30 g/dL (11.27-16.99) L 08/16/24 12:25 Hct 32.9 % (37-53) L 08/16/24 12:25 MCV 92.7 fl (82-101) 08/16/24 12:25 MCH 29.0 pg (27-33) 08/16/24 12:25 MCHC 31.3 g/dL (30-55) 08/16/24 12:25 RDW 15.5 % (12.1-15.1) H 08/16/24 12:25 Plt Count 218 10^3/cmm (157-399) 08/16/24 12:25 MPV 11.6 fL (7.4-10.4) H 08/16/24 12:25 Neut % (Auto) 86.7 % 08/16/24 12:25 Lymph % (Auto) 6.1 % 08/16/24 12:25 [place] % (Auto) 5.8 % 08/16/24 12:25 Eos % (Auto) 0.1 % 08/16/24 12:25 Baso % (Auto) 0.6 % 08/16/24 12:25 Neut # (Auto) 11.87 10^3/uL (1.8-7.7) H 08/16/24 12:25 Lymph # (Auto) 0.8 10^3/uL (0.8-4.8) 08/16/24 12:25 [place] # (Auto) 0.8 10^3/uL (0.2-0.9) 08/16/24 12:25 Eos # (Auto) 0.0 10^3/uL (0.0-0.8) 08/16/24 12:25 Baso # (Auto) 0.1 10^3/uL (0.0-0.1) 08/16/24 12:25 Nucleated RBC % (auto) 0.1 % 08/16/24 12:25 Nucleated RBCs # 0.0 /100WBC 08/16/24 12:25 Specimen Type Arterial 08/16/24 13:03 Sample Site Radial, left 08/16/24 13:03 ABG pH 7.49 (7.35-7.45) H 08/16/24 13:03 ABG pCO2 31.3 mmHg (35-45) L 08/16/24 13:03 ABG pO2 41.4 mmHg (80.0-100.0) L 08/16/24 13:03 ABG HCO3 23.7 mmol/L (22-26) 08/16/24 13:03 ABG Base Excess 0.8 mmol/L (-2.0-2.0) 08/16/24 13:03 Otoniel Test Pos 08/16/24 13:03 Hematocrit 30.3 % (42-52) L 08/16/24 13:03 O2 Delivery Device Nc 08/16/24 13:03 O2 Liters/Min 4.0 % 08/16/24 13:03 Test Desk Operator ID Walci 08/16/24 13:03 Sodium 139 mmol/L (136-145) 08/16/24 12:25 Potassium 3.9 mmol/L (3.5-5.1) 08/16/24 12:25 Chloride 91 mmol/L (98-107) L 08/16/24 12:25 Carbon Dioxide 22 mmol/L (22-29) 08/16/24 12:25 Anion Gap 29.9 (5-19) H 08/16/24 12:25 BUN 17 mg/dL (6-20) 08/16/24 12:25 Creatinine 3.8 mg/dL (0.7-1.2) H 08/16/24 12:25 GFR Calculation 17.4 mL/min (90-130) L 08/16/24 12:25 Glucose 192 mg/dL (65-115) H 08/16/24 12:25 Calculated Osmolality 295 mOsm/kg (285-295) 08/16/24 12:25 Lactic Acid 2.6 mmol/L (0.5-2.2) H 08/16/24 12:25 Calcium 9.9 mg/dL (8.5-10.5) 08/16/24 12:25 Magnesium 2.2 mg/dL (1.7-2.3) 08/16/24 12:25 Total Bilirubin 1.2 mg/dL (0.15-1.2) 08/16/24 12:25 AST 19 U/L (0-40) 08/16/24 12:25 ALT 9 U/L (0-41) 08/16/24 12:25 Alkaline Phosphatase 72 U/L (40-130) 08/16/24 12:25 Troponin T Baseline 385 ng/L (0-15) H* 08/16/24 12:25 Troponin T 120 Minute 379.0 ng/L (0-15) H 08/16/24 14:21 Delta Troponin T -6.0 ABS# (0-10) L 08/16/24 14:21 NT-Pro-B Natriuret Pep > 20356 pg/mL (0-125) H 08/16/24 12:25 Total Protein 8.2 g/dL (6.6-8.7) 08/16/24 12:25 Albumin 4.3 g/dL (3.5-5.2) 08/16/24 12: Globulin 3.9 g/dL (1.3-4.6) 08/16/24 12:25 All radiology interpretation(s) finalized by discharge Discharge Plan Discharge Patient Disposition: Admitted As Inpatient Clinical Impression: Pneumonia, Pulmonary embolism, Pulmonary edema, End stage kidney disease, Elevated troponin, Acute hypoxemic respiratory failure Condition: Fair Coding Level of Care Code ED Senior Office Support Assistant Sosa for Chg Fwd Related Data Home Medications ?Medication ?Instructions ?Recorded ?Confirmed amlodipine 5 mg tablet 5 mg PO QPM 06/09/24 08/16/24 bumetanide 2 mg tablet 2 mg PO DAILY PRN dialysis days 06/09/24 08/16/24 only buspirone 5 mg tablet 5 mg PO TID 06/09/24 08/16/24 calcitriol 0.25 mcg capsule 0.75 mcg PO DAILY 06/09/24 08/16/24 carvedilol 25 mg tablet 50 mg PO TID 06/09/24 08/16/24 clonidine HCl 0.3 mg tablet 0.3 mg PO TID 06/09/24 08/16/24 furosemide 80 mg tablet 80 mg PO BID 06/09/24 08/16/24 gabapentin 100 mg capsule See Rx Instructions .Route .COMPLEX 06/09/24 08/16/24 hydralazine 100 mg tablet 100 mg PO TID 06/09/24 08/16/24 insulin lispro 100 unit/mL 15 unit SUBCUT TID 06/09/24 08/16/24 subcutaneous pen lisinopril 20 mg tablet 20 mg PO DAILY 06/09/24 08/16/24 loperamide 2 mg capsule See Rx Instructions .Route .COMPLEX 06/09/24 08/16/24 megestrol 40 mg tablet 40 mg PO BID 06/09/24 08/16/24 mirtazapine 15 mg tablet 7.5 mg PO DAILY 06/09/24 08/16/24 nifedipine 30 mg tablet,extended 30 mg PO DAILY 06/09/24 08/16/24 release pantoprazole 40 mg tablet,delayed 40 mg PO DAILY 06/09/24 08/16/24 release ropinirole 0.5 mg tablet 0.5 mg PO QPM 06/09/24 08/16/24 sevelamer carbonate 800 mg tablet See Rx Instructions .Route .COMPLEX 06/09/24 08/16/24 sodium bicarbonate 325 mg tablet 325 mg PO DAILY 06/09/24 08/16/24 venlafaxine 150 mg 150 mg PO DAILY 06/09/24 08/16/24 capsule,extended release 24 hr vit B,C-folic ac 800 mcg-zinc 12.5 See Rx Instructions .Route .COMPLEX 06/09/24 08/16/24 mg-selen-D3 2,000 unit-vit E tablet (RenaPlex-D) Allergies Allergy/AdvReac Type Severity Reaction Status Date / Time No Known Allergies Allergy Verified 03/19/24 15:01
[2024-08-16] MEDS: hyDRALAzine 20 mg/mL INJ 1 mL 10 MG IVP (13:30)
[2024-08-16 13:33] LABS: Alanine Aminotransferase 9 U/L (0-41); Albumin Level 4.3 g/dL (3.5-5.2); Alkaline Phosphatase 72 U/L (40-130); Aspartate Amino Transferase 19 U/L (0-40); Blood Urea Nitrogen 17 mg/dL (6-20); Calcium 9.9 mg/dL (8.5-10.5); Carbon Dioxide 22 mmol/L (22-29); Chloride 91 mmol/L (98-107); Creatinine Clr Calc Pharmacy 25.8862; Globulin 3.9 g/dL (1.3-4.6); Glomerular Filtration Rate 17.4 mL/min (90-130); Glucose 192 mg/dL (65-115); Magnesium 2.2 mg/dL (1.7-2.3); Osmolality Calculated 295 mOsm/kg (285-295); Sodium 139 mmol/L (136-145); Total Bilirubin 1.2 mg/dL (0.15-1.2); Total Protein 8.2 g/dL (6.6-8.7)
[2024-08-16 13:36] LABS: Troponin(5th) Baseline 385 ng/L (0-15)
[2024-08-16 13:38] LABS: Anion Gap 29.9 (5-19); Potassium 3.9 mmol/L (3.5-5.1)
[2024-08-16 13:39] LABS: NT Pro B Type Natriuretic Pept > 35000 pg/mL (0-125)
--- NOTE | 2024-08-16 13:44 | CT_ITS ---
WS: [id number] CTA OF THE CHEST WITH PULMONARY EMBOLISM PROTOCOL TECHNIQUE: High-resolution contrast enhanced CTA of the chest with coronal and sagittal reformatted images with pulmonary embolism protocol. MIP images are also reviewed. CLINICAL INFORMATION: sob, weakness COMPARISON: None. DLP: 345.[address] scans at [facility] use at least one of these dose optimization techniques: automated exposure control; mA and/or kV adjustment per patient size (includes targeted exams where dose is matched to clinical indication); or iterative reconstruction. FINDINGS: Proximal main pulmonary arteries are normal. Filling defects in the RIGHT upper lobe segmental and subsegmental pulmonary arteries compatible with pulmonary embolus. Additional filling defects in the LEFT upper lobe. Filling defects in the lingula. No evidence of RIGHT heart strain. Aortic calcification. CABG. Coronary calcification. Prominent anterior mediastinal and peribronchial lymph nodes likely reactive. No axillary lymphadenopathy. A few patchy opacities in the RIGHT upper lobe. Small RIGHT and tiny LEFT pleural effusions with bibasilar at electasis. Compressive atelectasis in the lung bases. Reflux into the hepatic veins compatible with RIGHT heart strain. Adrenal glands are normal. Splenic artery calcification. Small esophageal hiatal hernia. Chronic compression of the L1 vertebral body. CT/CT angio chest PE protcl [id number] IMPRESSION: 1. Acute segmental and subsegmental pulmonary emboli described above worse in the RIGHT upper lobe. 2. No evidence of RIGHT heart strain. 3. Small RIGHT and tiny LEFT pleural effusions with subsegmental atelectasis a nd a few patchy opacities in the lung bases likely infectious or inflammatory. 4. Additional infectious or inflammatory patchy opacities in the RIGHT upper l obe. Some of these could represent developing pulmonary infarcts. Notified Jairo Lakhani MD at 08/16/2024 3:21 PM.
--- NOTE | 2024-08-16 13:51 | PC.NURSE ---
no cardiac leads available, charge nurse Briana notified, had called house sup.
--- NOTE | 2024-08-16 14:13 | PHA.VACGOAL ---
Vancomycin Goal - Goal Vancomycin Goal:: 15-20 mg/L Vancomycin Indication:: Other - Therapy Current therapy:: Other Antibiotic (CEFEPIME) Day of therpy:: Day []of [] . Actual body weight (kg): 150 lb - Data Labs: WBC 13.69 10^3/uL (3.29-11.43) H 08/16/24 12:25 RBC 3.55 10^6/uL (3.85-5.65) L 08/16/24 12:25 Hgb 10.30 g/dL (11.27-16.99) L 08/16/24 12:25 Hct 32.9 % (37-53) L 08/16/24 12:25 MCV 92.7 fl (82-101) 08/16/24 12: MCH 29.0 pg (27-33) 08/16/24 12: MCHC 31.3 g/dL (30-55) 08/16/24 12:25 RDW 15.5 % (12.1-15.1) H 08/16/24 12:25 Sodium 139 mmol/L (136-145) 08/16/24 12:25 Potassium 3.9 mmol/L (3.5-5.1) 08/16/24 12:25 Chloride 91 mmol/L (98-107) L 08/16/24 12:25 Carbon Dioxide 22 mmol/L (22-29) 08/16/24 12:25 Anion Gap 29.9 (5-19) H 08/16/24 12:25 BUN 17 mg/dL (6-20) 08/16/24 12:25 Creatinine 3.8 mg/dL (0.7-1.2) H 08/16/24 12:25 GFR Calculation 17.4 mL/min (90-130) L 08/16/24 12:25 Last dialysis session:: N/A Treatment plan:: new consult Regimen:: INITIAL LOADING DOSE OF 2000 MG PER DOSING PROTOCOL. DUE TO RENAL FUNCTION, PLAN TO PULSE DOSE INTERMITTENTLY BASED ON VANC LEVELS. LEVEL PLANNED FOR 24 HOURS POST LOADING DOSE. Follow up:: TROUGH 08/17 @1430
[2024-08-16] MEDS: iohexol 350 mg/mL 500 mL Btl (per mL) IV (14:14)
[2024-08-16] MEDS: cefepime 1,000 mg SDV 1000 MG IVP (14:27)
[2024-08-16] MEDS: vancomycin 2,000 MG/400 ML PIGGYBACK 200 MG IV (14:28)
[2024-08-16] MEDS: sodium chloride 0.9% 250 ML IV (14:36)
--- NOTE | 2024-08-16 14:37 | PM.CONSULT ---
Providers/Reason For Consult Consulting Physician/Specialty*: kommana/Nephrology Reason for Consult*: ESRD Primary Care Provider: Yaniv Moe MD History of Present Illness History of Present Illness Jose Guadalupe Claudio is a 43 year old male Patient is a 43-year-old male with past medical history of end-stage renal disease on TTS schedule, history of COVID-pneumonia, history of CVA and hypertension, presented to the emergency department for shortness of breath. Patient was at a dialysis center and he was sent due to progressive shortness of breath. Lab data reviewed. CT angiogram was consistent with PE as well as pneumonia. Patient currently receiving IV heparin drip as well as IV antibiotics and is admitted for further management. Lab data reviewed. Medications/Allergies Home Medications ?Medication ?Instructions ?Recorded ?Confirmed ?Last Taken ?Type amlodipine 5 mg tablet 5 mg PO QPM 06/09/24 08/16/24 08/16/24 History bumetanide 2 mg tablet 2 mg PO DAILY PRN dialysis days 06/09/24 08/16/24 08/16/24 History only buspirone 5 mg tablet 5 mg PO TID 06/09/24 08/16/24 08/16/24 History calcitriol 0.25 mcg capsule 0.75 mcg PO DAILY 06/09/24 08/16/24 08/16/24 History carvedilol 25 mg tablet 50 mg PO TID 06/09/24 08/16/24 08/16/24 History clonidine HCl 0.3 mg tablet 0.3 mg PO TID 06/09/24 08/16/24 08/16/24 History furosemide 80 mg tablet 80 mg PO BID 06/09/24 08/16/24 08/16/24 History gabapentin 100 mg capsule See Rx Instructions .Route .COMPLEX 06/09/24 08/16/24 08/16/24 History hydralazine 100 mg tablet 100 mg PO TID 06/09/24 08/16/24 08/16/24 History insulin lispro 100 unit/mL 15 unit SUBCUT TID 06/09/24 08/16/24 Unknown History subcutaneous pen lisinopril 20 mg tablet 20 mg PO DAILY 06/09/24 08/16/24 08/16/24 History loperamide 2 mg capsule See Rx Instructions .Route .COMPLEX 06/09/24 08/16/24 Unknown History megestrol 40 mg tablet 40 mg PO BID 06/09/24 08/16/24 08/16/24 History mirtazapine 15 mg tablet 7.5 mg PO DAILY 06/09/24 08/16/24 08/15/24 History nifedipine 30 mg tablet,extended 30 mg PO DAILY 06/09/24 08/16/24 08/16/24 History release pantoprazole 40 mg tablet,delayed 40 mg PO DAILY 06/09/24 08/16/24 08/16/24 History release ropinirole 0.5 mg tablet 0.5 mg PO QPM 06/09/24 08/16/24 08/15/24 History sevelamer carbonate 800 mg tablet See Rx Instructions .Route .COMPLEX 06/09/24 08/16/24 08/16/24 History sodium bicarbonate 325 mg tablet 325 mg PO DAILY 06/09/24 08/16/24 08/16/24 History venlafaxine 150 mg 150 mg PO DAILY 06/09/24 08/16/24 08/16/24 History capsule,extended release 24 hr vit B,C-folic ac 800 mcg-zinc 12.5 See Rx Instructions .Route .COMPLEX 06/09/24 08/16/24 Unknown History mg-selen-D3 2,000 unit-vit E tablet (RenaPlex-D) Allergies Allergy/AdvReac Type Severity Reaction Status Date / Time No Known Allergies Allergy Verified 03/19/24 15:01 Current Medications Generic Name Dose Route Start Last Admin Trade Name Freq PRN Reason Stop Dose Admin Sodium Chloride 250 mls @ 250 mls/hr 08/16/24 13:45 08/16/24 14:36 Sodium Chloride 0.9% IV 08/16/24 14:44 250 mls/hr ONCE ONE Administration Vancomycin HCl 2,000 mg in 400 mls @ 200 mls/hr 08/16/24 14:30 08/16/24 14:28 Vancocin IV 08/16/24 16:29 200 mls/hr ONCE ONE Administration PFSH Acute PFSH: Medical History Ingrowing toenail of left foot Hematoma of leg Non-pressure chronic ulcer of 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 Bilateral pes planus Medical non-compliance Hypertensive urgency Closed right trimalleolar fracture Restless leg syndrome Peritonitis CAD (coronary artery disease) Depression End-stage renal disease on peritoneal dialysis Anemia Surgical History Hx of CABG Social History Smoking and tobacco/nicotine status: former use of tobacco/nicotine Alcohol intake: never Substance/Drug Use: current Other substance/drug use details: Medical marijuana Vitals/I&O/Wt Last Vital Signs Temp 98.0 F 08/16/24 12:43 Pulse 70 08/16/24 14:00 Resp 16 08/16/24 12:43 BP 194/102 08/16/24 13:58 Pulse Ox 100 08/16/24 14:00 O2 Del Method BiPAP 08/16/24 14:00 FiO2 65 08/16/24 13:26 Weight last 48 hrs Weight 68.039 kg Data 08/17/24 05:28 08/17/24 05:28 Micro: Microbiology 08/16/24 13:32 Blood Culture - Preliminary Blood SPECIMEN COLLECTED 08/16/24 13:30 Blood Culture - Preliminary Blood SPECIMEN COLLECTED A&P Assessment and plan (1) End stage kidney disease: Plan 1. End-stage renal disease: On TTS schedule, patient presented with hypoxia, ultrafiltration as tolerated 2. Hypertension: Blood pressure elevated, resume home meds and reevaluate after HD 3. Acute on chronic respiratory failure: Multifactorial in the setting of pneumonia and pulmonary embolism as well as pulmonary edema 4. Anemia: Hemoglobin 8.2, GIANCARLO with HD Patient evaluated using audiovisual cart. Time spent 40 minutes PDMP PDMP Reviewed: Not Reviewed Consult Attestations Medical Necessity Statement: per medicine Coding Level of Care Code Acute Code for Chg Fwd Diagnoses End stage kidney disease N18.6
[2024-08-16 14:55] LABS: Reflex Lactate Order REFLEX LACTIC ORDERD
--- NOTE | 2024-08-16 15:02 | ECG_ITS ---
[facility] ScreenTag Test Date: 2024-08-16 Pat Name: Jose Guadalupe Claudio Department: Room: Gender: Male Maxillofacial Surgeon: : 1980 Requested By: Jairo Lakhani Order Number: [id number] Reading MD: GEOVANNA RUIZ Measurements Intervals [place] Rate: 63 P: 77 KS: 158 QRS: 38 QRSD: 103 T: 31 QT: 427 QTc: 439 Interpretive Statements SINUS RHYTHM SEPTAL MYOCARDIAL INFARCTION , OF INDETERMINATE AGE [40+ ms Q WAVE IN V1/V2] Compared to ECG 08/16/2024 12:46:39 No significant changes Electronically Signed On 08-18-2024 16:29:22 CDT by GEOVANNA RUIZ [email or web address]
--- NOTE | 2024-08-16 15:37 | PM.HP ---
Providers/Chief Complaint Primary Care Provider: Yaniv Moe MD Chief Complaint: hpyertension - weakness History of Present Illness Jose Guadalupe Claudio is a 43 year old male ear-old male with history of end-stage renal disease on hemodialysis (TTS schedule) presents with several days of weakness, shortness of breath, and poor appetite. Patient reports symptoms began a few days ago. He denies fever, significant cough, though notes occasional productive cough with minimal phlegm. Patient had his last dialysis session on Tuesday and reports completing the full course, though was experiencing some weakness at that time. He maintains minimal urine output (couple times daily). Of note, patient was recently diagnosed with coronavirus approximately 2 weeks ago (June 21, 2024) and was treated for pneumonia with antibiotics (specific antibiotic unclear). Patient has significant past medical history including COVID-19 in 2019 complicated by cardiac arrest, coma, stroke, and need for tracheostomy. During that hospitalization, he developed MRSA infections which, along with subsequent treatments, contributed to his kidney failure. Medications/Allergies Home Medications ?Medication ?Instructions ?Recorded ?Confirmed ?Last Taken ?Type amlodipine 5 mg tablet 5 mg PO QPM 06/09/24 08/16/24 08/16/24 History bumetanide 2 mg tablet 2 mg PO DAILY PRN dialysis days 06/09/24 08/16/24 08/16/24 History only buspirone 5 mg tablet 5 mg PO TID 06/09/24 08/16/24 08/16/24 History calcitriol 0.25 mcg capsule 0.75 mcg PO DAILY 06/09/24 08/16/24 08/16/24 History carvedilol 25 mg tablet 50 mg PO TID 06/09/24 08/16/24 08/16/24 History clonidine HCl 0.3 mg tablet 0.3 mg PO TID 06/09/24 08/16/24 08/16/24 History furosemide 80 mg tablet 80 mg PO BID 06/09/24 08/16/24 08/16/24 History gabapentin 100 mg capsule See Rx Instructions .Route .COMPLEX 06/09/24 08/16/24 08/16/24 History hydralazine 100 mg tablet 100 mg PO TID 06/09/24 08/16/24 08/16/24 History insulin lispro 100 unit/mL 15 unit SUBCUT TID 06/09/24 08/16/24 Unknown History subcutaneous pen lisinopril 20 mg tablet 20 mg PO DAILY 06/09/24 08/16/24 08/16/24 History loperamide 2 mg capsule See Rx Instructions .Route .COMPLEX 06/09/24 08/16/24 Unknown History megestrol 40 mg tablet 40 mg PO BID 06/09/24 08/16/24 08/16/24 History mirtazapine 15 mg tablet 7.5 mg PO DAILY 06/09/24 08/16/24 08/15/24 History nifedipine 30 mg tablet,extended 30 mg PO DAILY 06/09/24 08/16/24 08/16/24 History release pantoprazole 40 mg tablet,delayed 40 mg PO DAILY 06/09/24 08/16/24 08/16/24 History release ropinirole 0.5 mg tablet 0.5 mg PO QPM 06/09/24 08/16/24 08/15/24 History sevelamer carbonate 800 mg tablet See Rx Instructions .Route .COMPLEX 06/09/24 08/16/24 08/16/24 History sodium bicarbonate 325 mg tablet 325 mg PO DAILY 06/09/24 08/16/24 08/16/24 History venlafaxine 150 mg 150 mg PO DAILY 06/09/24 08/16/24 08/16/24 History capsule,extended release 24 hr vit B,C-folic ac 800 mcg-zinc 12.5 See Rx Instructions .Route .COMPLEX 06/09/24 08/16/24 Unknown History mg-selen-D3 2,000 unit-vit E tablet (RenaPlex-D) Allergies Allergy/AdvReac Type Severity Reaction Status Date / Time No Known Allergies Allergy Verified 03/19/24 15:01 PFSH Acute PFSH: Medical History Ingrowing toenail of left foot Hematoma of leg Non-pressure chronic ulcer of 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 Bilateral pes planus Medical non-compliance Hypertensive urgency Closed right trimalleolar fracture Restless leg syndrome Peritonitis CAD (coronary artery disease) Depression End-stage renal disease on peritoneal dialysis Anemia Surgical History Hx of CABG Social History Smoking and tobacco/nicotine status: former use of tobacco/nicotine Alcohol intake: never Substance/Drug Use: current Other substance/drug use details: Medical marijuana Vitals/I&O/Wt Last Vital Signs Temp 98.0 F 08/16/24 12:43 Pulse 63 08/16/24 15:30 Resp 19 H 08/16/24 15:30 BP 169/106 08/16/24 15:30 Pulse Ox 100 08/16/24 15:30 O2 Del Method BiPAP 08/16/24 15:30 FiO2 65 08/16/24 13:26 Weight last 48 hrs Weight 68.039 kg Data 08/16/24 12:25 08/16/24 12:25 Micro: Microbiology 08/16/24 13:32 Blood Culture - Preliminary Blood SPECIMEN COLLECTED 08/16/24 13:30 Blood Culture - Preliminary Blood SPECIMEN COLLECTED A&P PDMP PDMP Reviewed: Not Reviewed Coding Level of Care Code Acute Code for Monik Riley
[2024-08-16 16:12] LABS: Influenza A NEGATIVE (Negative); Influenza B NEGATIVE (Negative); Respiratory Syncytial Virus Ce NEGATIVE (Negative); SARS-CoV-2 PCR NEGATIVE (Negative)
[2024-08-16 16:15] LABS: Lactic Acid level (Lactate) 1.5 mmol/L (0.5-2.2)
[2024-08-16 16:22] LABS: Hepatitis B Surface AB 141.2 (11.5-1000); Hepatitis B Surface Antigen Non-Reactive (Nonreactive)
--- NOTE | 2024-08-16 16:34 | PC.NURSE ---
pt report called to [facility] in ICU, states Beth will come get pt and take them to ICU.
--- NOTE | 2024-08-16 16:39 | PM.HP ---
Providers/Chief Complaint Primary Care Provider: Yaniv Moe MD Chief Complaint: hpyertension - weakness History of Present Illness Jose Guadalupe Claudio is a 43 year old male with history of end-stage renal disease on hemodialysis (TTS schedule), COVID-19 in 2019 complicated by cardiac arrest, coma, stroke, and need for tracheostomy who presents from his dialysis center for further evaluation of worsening shortness of breath, generalized weakness, reduced appetite and generally feeling unwell. He was having his dialysis today when he had worsening shortness of breath and was transferred to the emergency room. He did not complete his session of dialysis . Of note, patient was recently diagnosed with coronavirus approximately 2 weeks ago (June 21, 2024) and was treated for pneumonia with antibiotics . He denies fever, chills, syncopal cough, abdominal pain, nausea, vomiting, worsening lower extremity edema or any other symptoms. In the ER, CT of the chest was significant for acute segmental and subsegmental pulmonary emboli was in the right upper lobe, patchy opacities in the right upper lobe and some opacities in the lung bases. He was started on heparin infusion and also received antibiotics. He was also noted to be hypoxic and was started on BiPAP. Review of Systems Card: Reports: swelling of feet/ankles; Denies: chest pain or palpitations Resp: Reports: dyspnea; Denies: productive cough GI: Denies: abdominal pain, nausea or vomiting Musc: Reports: extremity swelling Medications/Allergies Home Medications ?Medication ?Instructions ?Recorded ?Confirmed ?Last Taken ?Type amlodipine 5 mg tablet 5 mg PO QPM 06/09/24 08/16/24 08/16/24 History bumetanide 2 mg tablet 2 mg PO DAILY PRN dialysis days 06/09/24 08/16/24 08/16/24 History only buspirone 5 mg tablet 5 mg PO TID 06/09/24 08/16/24 08/16/24 History calcitriol 0.25 mcg capsule 0.75 mcg PO DAILY 06/09/24 08/16/24 08/16/24 History carvedilol 25 mg tablet 50 mg PO TID 06/09/24 08/16/24 08/16/24 History clonidine HCl 0.3 mg tablet 0.3 mg PO TID 06/09/24 08/16/24 08/16/24 History furosemide 80 mg tablet 80 mg PO BID 06/09/24 08/16/24 08/16/24 History gabapentin 100 mg capsule See Rx Instructions .Route .COMPLEX 06/09/24 08/16/24 08/16/24 History hydralazine 100 mg tablet 100 mg PO TID 06/09/24 08/16/24 08/16/24 History insulin lispro 100 unit/mL 15 unit SUBCUT TID 06/09/24 08/16/24 Unknown History subcutaneous pen lisinopril 20 mg tablet 20 mg PO DAILY 06/09/24 08/16/24 08/16/24 History loperamide 2 mg capsule See Rx Instructions .Route .COMPLEX 06/09/24 08/16/24 Unknown History megestrol 40 mg tablet 40 mg PO BID 06/09/24 08/16/24 08/16/24 History mirtazapine 15 mg tablet 7.5 mg PO DAILY 06/09/24 08/16/24 08/15/24 History nifedipine 30 mg tablet,extended 30 mg PO DAILY 06/09/24 08/16/24 08/16/24 History release pantoprazole 40 mg tablet,delayed 40 mg PO DAILY 06/09/24 08/16/24 08/16/24 History release ropinirole 0.5 mg tablet 0.5 mg PO QPM 06/09/24 08/16/24 08/15/24 History sevelamer carbonate 800 mg tablet See Rx Instructions .Route .COMPLEX 06/09/24 08/16/24 08/16/24 History sodium bicarbonate 325 mg tablet 325 mg PO DAILY 06/09/24 08/16/24 08/16/24 History venlafaxine 150 mg 150 mg PO DAILY 06/09/24 08/16/24 08/16/24 History capsule,extended release 24 hr vit B,C-folic ac 800 mcg-zinc 12.5 See Rx Instructions .Route .COMPLEX 06/09/24 08/16/24 Unknown History mg-selen-D3 2,000 unit-vit E tablet (RenaPlex-D) Allergies Allergy/AdvReac Type Severity Reaction Status Date / Time No Known Allergies Allergy Verified 03/19/24 15:01 PFSH Acute PFSH: Medical History Ingrowing toenail of left foot Hematoma of leg Non-pressure chronic ulcer of 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 Bilateral pes planus Medical non-compliance Hypertensive urgency Closed right trimalleolar fracture Restless leg syndrome Peritonitis CAD (coronary artery disease) Depression End-stage renal disease on peritoneal dialysis Anemia Surgical History Hx of CABG Social History Smoking and tobacco/nicotine status: former use of tobacco/nicotine Alcohol intake: never Substance/Drug Use: current Other substance/drug use details: Medical marijuana Vitals/I&O/Wt Last Vital Signs Temp 98.0 F 08/16/24 12:43 Pulse 63 08/16/24 15:43 Resp 19 H 08/16/24 15:30 BP 169/106 08/16/24 15:30 Pulse Ox 100 08/16/24 15:43 O2 Del Method BiPAP 08/16/24 15:30 FiO2 65 08/16/24 15:43 08/16/24 08/16/24 08/16/24 06:59 14:59 22:59 Intake Total 250 / 250 Balance 250 / 250 Weight last 48 hrs Weight 68.039 kg Physical Exam Narrative: General - Awake, lethargy, wearing BiPAP, acutely ill-appearing HEENT-normocephalic, atraumatic, PERRL Lungs-diminished breath sounds bilaterally, mild bibasilar crackles, no wheezes Cardiovascular-S1, S2, regular rate and rhythm Abdomen-soft, nontender, normal bowel sounds Extremities-no pedal edema Neuro-no gross focal deficits Data 08/16/24 12:25 08/16/24 12:25 Micro: Microbiology 08/16/24 13:32 Blood Culture - Preliminary Blood SPECIMEN COLLECTED 08/16/24 13:30 Blood Culture - Preliminary Blood SPECIMEN COLLECTED A&P Assessment and plan (1) Acute hypoxemic respiratory failure: (2) Elevated troponin: (3) End stage kidney disease: (4) Pulmonary edema: (5) Pulmonary embolism: (6) Community acquired pneumonia: (7) Depression: Plan # Acute hypoxic respiratory failure - In the setting of pneumonia pulmonary edema, PE - Patient requiring BiPAP, 50% FiO2 - Wean oxygen as tolerated # Community-acquired pneumonia - Continue vancomycin and cefepime started in the ER - Check MRSA screen , de-escalate antibiotics as appropriate - Check urine Legionella antigen # Acute pulmonary embolism - CT scan showed Acute segmental and subsegmental pulmonary emboli described above worse in the RIGHT upper lobe. - No evidence of right heart strain, patient does have elevated troponin - Heparin infusion started - Will check TTE # Elevated troponin - Thought to be due to type II demand ischemia - Check serial troponin - TTE ordered - Consult cardiology as appropriate # Pulmonary edema - Continue Lasix - Dialysis for volume management # ESRD - Nephrology consulted for dialysis needs # Type 2 diabetes - Glucose checks, sliding scale insulin # History of hypertension - Resume antihypertensives # History of depression - Resume antidepressants PDMP PDMP Reviewed: Not Reviewed Attestations Medical Necessity Statement*: Patient admitted inpatient status with respiratory failure, pneumonia. His care will cross greater than 2 midnights. Coding Level of Care Code Acute Code for [facility] Diagnoses Acute hypoxemic respiratory failure J96.01 Elevated troponin R79.89 End stage kidney disease N18.6 Pulmonary edema J81.1 Pulmonary embolism I26.99 Community acquired pneumonia J18.9 Depression F32.A
--- NOTE | 2024-08-16 17:00 | USCV_ITS ---
Jose Guadalupe Claudio Age: 43 Gender: M : 1980 Exam Date: 08/16/2024 19:14 Ordering Phys: Sepideh Magaña MD Technologist: JALEESA Exam Location: [facility] [place] Indication: end-stage renal disease on dialysis, pulmonary emboli, patient on BIPAP in ICU-10 BP: 187 / 125 HR: 61 Rhythm: Sinus Technical Quality: Adequate MEASUREMENTS (Male / Female) Normal Values 2D ECHO LV Diastolic Diameter PLAX 4.3 cm 4.2 - 5.9 / 3.9 - 5.3 cm IVS Diastolic Thickness 1.4 cm 0.6 - 1.0 / 0.6 - 0.9 cm IVS Systolic Thickness 1.2 cm LVPW Diastolic Thickness 1.1 cm 0.6 - 1.0 / 0.6 - 0.9 cm LVPW Systolic Thickness 1.1 cm LVOT Diameter 1.9 cm LV Ejection Fraction 2D Teich 31.8 % LV Ejection Fraction MOD 4C 30.4 % LV Ejection Fraction MOD 2C 40.5 % LV Ejection Fraction 2C AL 38.2 % LA Diameter 4.1 cm Aorta at Sinotubular Diameter 2.8 cm IVC Diameter 2.0 cm M-MODE LA Ao Ratio MM 1.2 AV Cusp Separation MM 1.3 cm DOPPLER AV Peak Velocity 159.0 cm/s LVOT Peak Velocity 98.0 cm/s AV Area Cont Eq vti 1.9 cm squared AV Area Cont Eq pk 1.8 cm squared MV Peak Velocity 124.0 cm/s MV Area PHT 4.5 cm squared Mitral E to A Ratio 2.3 TV Peak Velocity 305.0 cm/s TR Peak Velocity 310.0 cm/s TR Peak Gradient 38.4 mmHg TV Peak E Velocity 35.0 cm/s PV Peak Velocity 113.0 cm/s FINDINGS Left Ventricle Normal left ventricular cavity size. Severely decreased left ventricular systolic function. Left ventricular ejection fraction is estimated at 31 %. Global left ventricular hypokinesis. Grade I/IV diastolic dysfunction (abnormal relaxation filling pattern), normal to mildly elevated filling pressures. Right Ventricle The right ventricle is normal in size and function. Right Atrium The right atrium is normal in size. Left Atrium Mildly increased left atrial size. Mitral Valve Thickened mitral valve. No mitral valve stenosis. Moderate mitral valve regurgitation. Aortic Valve Structurally normal aortic valve without significant sclerosis or stenosis. There is no aortic regurgitation. Tricuspid Valve Moderate tricuspid valve regurgitation. Pulmonic Valve Mild pulmonary valve regurgitation. Pericardium Normal pericardium without effusion. Aorta Normal ascending aorta dimension. IVC The inferior vena cava appears normal. CONCLUSIONS Normal left ventricular cavity size. Severely decreased left ventricular systolic function. Left ventricular ejection fraction is estimated at 31 %. Global left ventricular hypokinesis. Grade I/IV diastolic dysfunction (abnormal relaxation filling pattern), normal to mildly elevated filling pressures. Mildly increased left atrial size. Thickened mitral valve. No mitral valve stenosis. Moderate mitral valve regurgitation. Moderate tricuspid valve regurgitation. Mild pulmonary valve regurgitation. There is no pericardial effusion. Right atrial pressure is around 15-20 mm of mercury. Tia Green MD (Electronically Signed) Final Date: 17 Aug 2024 13:24 S
[2024-08-16] MEDS: heparin, porcine 1,000 unit/mL INJ 10 mL 10000 UNIT HE (17:15)
[2024-08-16] MEDS: heparin drip 25,000 UNIT/500 ML PREMIX 19.05 UNIT IV (17:21)
[2024-08-16] MEDS: heparin 5,000 unit/mL INJ 1 mL IVP (17:24)
[2024-08-16] MEDS: loperamide 2 mg Capsule 6 MG PO (17:34)
[2024-08-16] MEDS: ropinirole 0.25 mg Tablet 0.5 MG PO (17:35)
[2024-08-16] MEDS: amlodipine 5 mg Tablet PO (18:50)
--- NOTE | 2024-08-16 19:00 | PC.NURSE ---
SHift SUmmary: Uneventful shift .Received in ICU near end of shift. Started on heparin drip and dialysis shortly after arrival.
--- NOTE | 2024-08-16 19:02 | ECG_ITS ---
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[employer]: : 1980 Requested By: Jairo Lakhani Order Number: [id number] Cristobal MD: GEOVANNA RUIZ Measurements Intervals [place] Rate: 71 P: 66 NE: 151 QRS: 31 QRSD: 106 T: 29 QT: 453 QTc: 493 Interpretive Statements SINUS RHYTHM WITH SINUS ARRHYTHMIA POSSIBLE LEFT ATRIAL ENLARGEMENT [-0.1mV P-WAVE IN V1/V2] LEFT VENTRICULAR HYPERTROPHY AND ST-T CHANGE [VOLTAGE CRITERIA PLUS ST/T ABNORMALITY] POSSIBLE SEPTAL MYOCARDIAL INFARCTION , OF INDETERMINATE AGE [30 ms Q WAVE IN V1/V2] Compared to ECG 08/16/2024 15:21:16 Left ventricular hypertrophy now present ST (T wave) deviation now present Myocardial infarct finding still present Electronically Signed On 08-18-2024 16:22:42 CDT by GEOVANNA RUIZ [email or web address]
[2024-08-16 19:04] LABS: Troponin 5 6HR Delta -24.9 ng/L (0-12)
[2024-08-16 19:07] LABS: Troponin 5 6HR 360.1 ng/L (0-15)
[2024-08-16] MEDS: BuSPIRONE 10 mg Tablet 5 MG PO (20:28)
[2024-08-16] MEDS: FUROsemide 40 mg Tablet 80 MG PO (20:28)
[2024-08-16] MEDS: cloNIDine 0.1 mg Tablet 0.3 MG PO (20:28)
[2024-08-16] MEDS: carvedilol 25 mg Tablet 50 MG PO (20:29)
[2024-08-16] MEDS: hyDRALAzine 50 mg Tablet 100 MG PO (20:29)
[2024-08-16] MEDS: gabapentin 100 mg Capsule 200 MG PO (20:29)
[2024-08-16] MEDS: heparin, porcine 1,000 unit/mL INJ 10 mL 10000 UNIT INTRACATH (20:41)
[2024-08-16 23:21] LABS: Partial Thromboplastin Time 121.4 SECONDS (23.9-36.7)
[2024-08-17] VITALS (82 sets, daily range): BP systolic 116–198; BP diastolic 70–121; PULSE 59–71; RESP 10–27; TEMP 36.4–37.1; O2SAT 92–100
[2024-08-17 00:02] LABS: MRSA PCR OZH (swab) MRSA Detected (Negative)
[2024-08-17] MEDS: cefepime 1,000 mg SDV 1000 MG IVP ×2 (02:00→14:54)
[2024-08-17] MEDS: hyDRALAzine 20 mg/mL INJ 1 mL 10 MG IVP ×2 (02:50→11:37)
[2024-08-17] MEDS: gabapentin 100 mg Capsule PO (05:23)
[2024-08-17] MEDS: loperamide 2 mg Capsule PO (05:23)
[2024-08-17 05:41] LABS: Basophils # 0.1 10^3/uL (0.0-0.1); Basophils % 1.1 %; Eosinophils # 0.2 10^3/uL (0.0-0.8); Eosinophils % 2.5 %; Hematocrit 27.1 % (37-53); Lymphocytes # 1.3 10^3/uL (0.8-4.8); Lymphocytes % 16.7 %; Mean Corpuscular HGB Conc 30.3 g/dL (30-55); Mean Corpuscular Hemoglobin 28.8 pg (27-33); Mean Corpuscular Volume 95.1 fl (82-101); Mean Platelet Volume 10.9 fL (7.4-10.4); Monocytes # 0.8 10^3/uL (0.2-0.9); Monocytes % 9.6 %; Neutrophils # 5.49 10^3/uL (1.8-7.7); Neutrophils % 69.7 %; Nucleated Red Blood Cells % 0.3 %; Platelet Count 159 10^3/cmm (157-399); Red Blood Count 2.85 10^6/uL (3.85-5.65); Red Cell Distribution Width 15.3 % (12.1-15.1); White Blood Count 7.89 10^3/uL (3.29-11.43)
[2024-08-17 05:47] LABS: Partial Thromboplastin Time 46.4 SECONDS (23.9-36.7)
[2024-08-17 05:50] LABS: Albumin Level 3.3 g/dL (3.5-5.2); Anion Gap 15.8 (5-19); Blood Urea Nitrogen 11 mg/dL (6-20); Carbon Dioxide 26 mmol/L (22-29); Chloride 101 mmol/L (98-107); Creatinine Clr Calc Pharmacy 31.5286; Glucose 116 mg/dL (65-115); Phosphorus 2.4 mg/dL (2.5-4.5); Potassium 3.8 mmol/L (3.5-5.1); Sodium 139 mmol/L (136-145)
[2024-08-17] MEDS: heparin 5,000 unit/mL INJ 1 mL IVP ×2 (06:16→13:23)
--- NOTE | 2024-08-17 07:13 | PM.PN ---
Subjective Subjective: no nw c/o Medications: Reviewed: Yes Vitals/I&O/Wt Last Vital Signs Temp 98.3 F 08/18/24 05:18 Pulse 56 L 08/18/24 06:00 Resp 10 L 08/18/24 06:00 BP 125/68 08/18/24 06:00 Pulse Ox 95 08/18/24 06:00 O2 Del Method Nasal Cannula 08/17/24 17:00 O2 Flow Rate 2 08/17/24 17:00 FiO2 2 08/17/24 08:30 08/17/24 08/18/24 08/18/24 22:59 06:59 14:59 Intake Total 142.816 / 555.349 538.25 / 1093.599 Balance 142.816 / 555.349 538.25 / 1093.599 Weight last 48 hrs Weight 67.857 kg Weight 66.86 kg Weight 66.86 kg Weight 66.5 kg Weight 69.853 kg Weight 68.039 kg Physical Exam Const: COMMON NORMALS: average body habitus GENERAL APPEARANCE: in distress ORIENTATION/CONSCIOUSNESS: Yes awake, Yes oriented to person and Yes oriented to place HENMT: COMMON NORMALS: normocephalic HEAD & SCALP: normocephalic Eye: COMMON NORMALS: EOMs intact bilaterally and no scleral icterus Neck/C-Spine: COMMON NORMALS: no JVD Resp: EFFORT & INSPECTION: Yes decreased respiratory effort AUSCULTATION: diminished lung sounds Cardio: COMMON NORMALS: no JVD, regular rate, regular rhythm, S1 normal heart sound present, S2 normal heart sound present and No gallops present (Cardio) JUGULAR VENOUS DISTENTION: no JVD RATE: regular rate RHYTHM: regular rhythm HEART SOUNDS: S1 normal heart sound present and S2 normal heart sound present GI: COMMON NORMALS: Soft to palpation and non-tender PALPATION: Yes Soft to palpation Extremity: NARRATIVE EXTREMITY EXAM: trace RLE edema Neuro: SENSORIUM/ORIENTATION: Yes oriented to person and Yes oriented to place Skin: COMMON NORMALS: no rashes or lesions noted GENERAL SKIN EXAM: no rashes or lesions noted Data 08/18/24 05:31 08/18/24 05:31 Micro: Microbiology 08/16/24 13:30 Blood Culture - Preliminary Blood NEGATIVE TO DATE 08/16/24 13:32 Blood Culture - Preliminary Blood Staphylococcus epidermidis A&P Assessment and plan (1) End stage kidney disease: Plan 1. End-stage renal disease: On TTS schedule, patient presented with hypoxia,HD today , ultrafiltration as tolerated 2. Hypertension: Blood pressure elevated, resume home meds and reevaluate after HD 3. Acute on chronic respiratory failure: Multifactorial in the setting of pneumonia and pulmonary embolism as well as pulmonary edema 4. Anemia: Hemoglobin 7.9 , GIANCARLO with HD Patient evaluated using audiovisual cart. Time spent 40 minutes PDMP PDMP Reviewed: Not Reviewed Attestations Medical Necessity Statement*: per medicine Coding Level of Care Code Acute Code for [facility] Diagnoses End stage kidney disease N18.6
[2024-08-17] MEDS: cloNIDine 0.1 mg Tablet 0.3 MG PO ×3 (07:16→20:18)
[2024-08-17] MEDS: lisinopril 20 mg Tablet PO (07:16)
[2024-08-17 07:17] LABS: Glucose Point of Care 107 mg/dL (70-110)
[2024-08-17 07:32] LABS: Glucose Point of Care 108 mg/dL (70-110)
[2024-08-17] MEDS: sodium bicarbonate 650 mg Tablet 325 MG PO (08:14)
[2024-08-17] MEDS: NIFEdipine ER (24 hr) 30 mg Tablet PO (08:15)
[2024-08-17] MEDS: BuSPIRONE 10 mg Tablet 5 MG PO ×3 (08:15→20:18)
[2024-08-17] MEDS: sevelamer 800 mg Tablet PO ×3 (08:15→17:42)
[2024-08-17] MEDS: venlafaxine ER (24HR) 150 mg Capsule PO (08:15)
[2024-08-17] MEDS: pantoprazole DR 40 mg Tablet PO (08:15)
[2024-08-17] MEDS: mirtazapine 15 mg Tablet 7.5 MG PO (08:16)
[2024-08-17] MEDS: carvedilol 25 mg Tablet 50 MG PO ×3 (08:16→20:19)
[2024-08-17] MEDS: hyDRALAzine 50 mg Tablet 100 MG PO ×3 (08:16→20:18)
[2024-08-17] MEDS: calcitriol 0.25 mcg Capsule 0.75 MCG PO (08:17)
[2024-08-17] MEDS: FUROsemide 40 mg Tablet 80 MG PO ×2 (09:50→17:41)
--- NOTE | 2024-08-17 09:53 | PC.SOCIAL ---
IMM Updated Updated pt on IMM. No questions voiced. Provided pt a copy. Initialed, dated, & timed a copy & placed in chart.
[2024-08-17] MEDS: insulin lispro 100 unit/1 mL SUBCUT ×3 (12:26→20:18)
[2024-08-17 12:27] LABS: Glucose Point of Care 166 mg/dL (70-110)
--- NOTE | 2024-08-17 12:38 | P.PN_ITS ---
Subjective 2 Subjective: No acute events overnight. Patient seen at his bedside and feels better today. Shortness of breath is improved. He has no new complaints. He denies chest pain. Vitals/I&O/Wt Last Vital Signs Temp 97.7 F 08/17/24 08:30 Pulse 63 08/17/24 12:00 Resp 22 H 08/17/24 12:00 BP 188/100 08/17/24 12:00 Pulse Ox 97 08/17/24 12:00 O2 Del Method Nasal Cannula 08/17/24 08:30 FiO2 2 08/17/24 08:30 08/16/24 08/17/24 08/17/24 22:59 06:59 14:59 Intake Total 1150 / 1150 617.753 / 1767.753 Output Total 3500 / 3500 0 / 3500 Balance -2350 / -2350 617.753 / -1732.247 Weight last 48 hrs Weight 66.86 kg Weight 66.86 kg Weight 66.5 kg Weight 69.853 kg Weight 68.039 kg Physical Exam 2 Narrative: General - Awake, alert, acutely ill-appearing, wearing nasal canula HEENT-normocephalic, atraumatic, PERRL Lungs-diminished breath sounds bilaterally, no crackles, no wheezes Cardiovascular-S1, S2, regular rate and rhythm Abdomen-soft, nontender, normal bowel sounds Extremities-no pedal edema Neuro-no gross focal deficits Data 08/17/24 05:28 08/17/24 05:28 Micro: Microbiology 08/16/24 13:32 Blood Culture - Preliminary Blood Staphylococcus epidermidis 08/16/24 13:30 Blood Culture - Preliminary Blood SPECIMEN COLLECTED A&P Assessment and plan (1) Acute hypoxemic respiratory failure: (2) Elevated troponin: (3) End stage kidney disease: (4) Pulmonary edema: (5) Pulmonary embolism: (6) Community acquired pneumonia: (7) Depression: Plan # Acute hypoxic respiratory failure -In the setting of pneumonia, pulmonary edema, PE -Patient currently off Bipap -He is now on 2L supplemental oxygen - Wean oxygen as tolerated #Community-acquired pneumonia - Continue vancomycin and cefepime -MRSA is positive -Urine Legionella antigen- pending #Acute pulmonary embolism - CT scan showed acute segmental and subsegmental pulmonary emboli described above worse in the right upper lobe. - No evidence of right heart strain, patient does have elevated troponin - Heparin infusion started - TTE pending # Elevated troponin - Thought to be due to type II demand ischemia - Check serial troponin - TTE ordered - Consult cardiology # Pulmonary edema - Continue Lasix - Dialysis for volume management # ESRD - Nephrology consulted for dialysis needs # Type 2 diabetes - Glucose checks, sliding scale insulin # History of hypertension -Patient's BP elevated - Continue antihypertensives # History of depression - Continue antidepressants PDMP PDMP Reviewed: Not Reviewed Attestations 2 Medical Necessity Statement*: Patient requires inpatient care for pneumonia, PE, ESRD. Coding Level of Care Code Acute Code for [facility]wd Diagnoses Acute hypoxemic respiratory failure J96.01 Elevated troponin R79.89 End stage kidney disease N18.6 Pulmonary edema J81.1 Pulmonary embolism I26.99 Community acquired pneumonia J18.9 Depression F32.A
[2024-08-17 13:07] LABS: Partial Thromboplastin Time 37.6 SECONDS (23.9-36.7)
[2024-08-17] MEDS: labetalol 5 mg/mL SDV 20mL 10 MG IVP (13:08)
--- NOTE | 2024-08-17 13:28 | PM.CONSULT ---
Providers/Reason For Consult Consulting Physician/Specialty*: Gino Lyn MD/cardiology Reason for Consult*: Patient with elevated troponin T, respiratory failure/ pneumonia/pulmonary embolism Requesting Physician: Dr. Magaña Attending Physician: Sepideh Magaña MD Primary Care Provider: Yaniv Moe MD History of Present Illness History of Present Illness Jose Guadalupe Claudio is a 43 year old male, he is admitted to the hospital with complaints of progressive shortness of breath. He was found to have pneumonia, pulmonary embolism and elevated troponin T. Cardiology consult is requested for further cardiac evaluation and recommendations. This patient has a very complicated history. He had four-vessel bypass surgery in 2018 at the [facility] in [place]. He presented with a heart attack at that time. In 2019, he was admitted to [facility] in the with respiratory distress and altered mental status. He was diagnosed with COVID-19 pneumonia? At that time. He was intubated for a long time. He underwent tracheostomy during that hospital stay. He also developed stroke during the hospital stay. Patient attributes this to withholding his blood pressure medication during the hospital admission?. He almost recovered completely from this with some very of the residual right upper extremity weakness. He also developed kidney failure during that hospital admission. He was initially on peritoneal dialysis and currently on hemodialysis through a subclavian catheter on the right side. He had MRSA infection also during the hospital stay. Apparently the patient remarkably improved since then. He has been doing okay with no significant issues. He is being followed up by a master automotive glass technician in [place] for his cardiac condition-Dr. Nash?. He had a Myocardial perfusion imaging couple of years ago and was told to be okay. He has a history of multiple episodes of pneumonia. Has a history of hypertension, dyslipidemia, type 2 diabetes and reactive airway disease. No history for liver disease or bleeding disorders. He used to smoke heavily and has cut back since 2019. He smokes marijuana and is a licensed marijuana user. He has a strong family history of premature atherosclerotic heart disease. His father had myocardial infarction at age of 41 and of the same. Mother had myocardial infarction at the age of 49 and had a coronary artery bypass surgery. No other relevant family history. He is and has 4 children. He has 3 siblings and apparently have no major medical problems . Currently has no chest pain or chest tightness. He was found to have both segmental and subsegmental pulmonary emboli. Some features of pulmonary infarct in the right upper lobe. Patchy densities in the lower lobe area, suggestive of inflammatory process. No evidence of any right ventricular strain Review of Systems Narrative: CONSTITUTIONAL: No fever or chills. EYES: No blurring of vision or other visual disturbances lately. ENT: No hoarseness of voice, auditory disturbances or sore throat. CARDIOVASCULAR: As mentioned above. RESPIRATORY: As mentioned above GASTROINTESTINAL: No hematemesis or melena. GENITOURINARY: Chronic kidney disease, on hemodialysis INTEGUMENTARY: No skin rashes or history of skin cancer. NEURO: History of CVA with residual right upper extremity weakness PSYCHIATRIC: No history of psychosis or major depression. HEMATOLOGIC: No bleeding disorders or significant anemia. ENDOCRINE: Type 2 diabetes MUSCULOSKELETAL: No recent joint pain or swelling. ALLERGY/IMMUNOLOGY: As mentioned above. Medications/Allergies Home Medications ?Medication ?Instructions ?Recorded ?Confirmed ?Last Taken ?Type amlodipine 5 mg tablet 5 mg PO QPM 06/09/24 08/16/24 08/16/24 History bumetanide 2 mg tablet 2 mg PO DAILY PRN dialysis days 06/09/24 08/16/24 08/16/24 History only buspirone 5 mg tablet 5 mg PO TID 06/09/24 08/16/24 08/16/24 History calcitriol 0.25 mcg capsule 0.75 mcg PO DAILY 06/09/24 08/16/24 08/16/24 History carvedilol 25 mg tablet 50 mg PO TID 06/09/24 08/16/24 08/16/24 History clonidine HCl 0.3 mg tablet 0.3 mg PO TID 06/09/24 08/16/24 08/16/24 History furosemide 80 mg tablet 80 mg PO BID 06/09/24 08/16/24 08/16/24 History gabapentin 100 mg capsule See Rx Instructions .Route .COMPLEX 06/09/24 08/16/24 08/16/24 History hydralazine 100 mg tablet 100 mg PO TID 06/09/24 08/16/24 08/16/24 History insulin lispro 100 unit/mL 15 unit SUBCUT TID 06/09/24 08/16/24 Unknown History subcutaneous pen lisinopril 20 mg tablet 20 mg PO DAILY 06/09/24 08/16/24 08/16/24 History loperamide 2 mg capsule See Rx Instructions .Route .COMPLEX 06/09/24 08/16/24 Unknown History megestrol 40 mg tablet 40 mg PO BID 06/09/24 08/16/24 08/16/24 History mirtazapine 15 mg tablet 7.5 mg PO DAILY 06/09/24 08/16/24 08/15/24 History nifedipine 30 mg tablet,extended 30 mg PO DAILY 06/09/24 08/16/24 08/16/24 History release pantoprazole 40 mg tablet,delayed 40 mg PO DAILY 06/09/24 08/16/24 08/16/24 History release ropinirole 0.5 mg tablet 0.5 mg PO QPM 06/09/24 08/16/24 08/15/24 History sevelamer carbonate 800 mg tablet See Rx Instructions .Route .COMPLEX 06/09/24 08/16/24 08/16/24 History sodium bicarbonate 325 mg tablet 325 mg PO DAILY 06/09/24 08/16/24 08/16/24 History venlafaxine 150 mg 150 mg PO DAILY 06/09/24 08/16/24 08/16/24 History capsule,extended release 24 hr vit B,C-folic ac 800 mcg-zinc 12.5 See Rx Instructions .Route .COMPLEX 06/09/24 08/16/24 Unknown History mg-selen-D3 2,000 unit-vit E tablet (RenaPlex-D) Allergies Allergy/AdvReac Type Severity Reaction Status Date / Time No Known Allergies Allergy Verified 03/19/24 15:01 Current Medications Generic Name Dose Route Start Last Admin Trade Name Ever PRN Reason Stop Dose Admin Amlodipine Besylate 5 mg 08/16/24 18:00 08/16/24 18:50 Amlodipine 5 Mg Tablet PO 5 mg QPM JAQUELINE Administration Buspirone HCl 5 mg 08/16/24 21:00 08/17/24 08:15 Buspirone 10 Mg Tablet PO 5 mg TID JAQUELINE Administration Calcitriol 0.75 mcg 08/17/24 09:00 08/17/24 08:17 Calcitriol 0.25 Mcg Capsule PO 0.75 mcg DAILY JAQUELINE Administration Carvedilol 50 mg 08/16/24 21:00 08/17/24 08:16 Carvedilol 25 Mg Tablet PO 50 mg TID JAQUELINE Administration Cefepime HCl 1,000 mg 08/16/24 02:30 08/17/24 02:00 Cefepime 1,000 Mg Sdv IVP 1,000 mg Q12H JAQUELINE Administration Protocol Clonidine HCl 0.3 mg 08/16/24 21:00 08/17/24 07:16 Clonidine 0.1 Mg Tablet PO 0.3 mg TID JAQUELINE Administration Furosemide 80 mg 08/16/24 18:00 08/17/24 09:50 Furosemide 40 Mg Tablet PO 80 mg BID JAQUELINE Administration Gabapentin 100 mg 08/17/24 06:00 08/17/24 05:23 Gabapentin 100 Mg Capsule PO 100 mg QAM JAQUELINE Administration Gabapentin 200 mg 08/16/24 21:00 08/16/24 20:29 Gabapentin 100 Mg Capsule PO 200 mg BEDTIME JAQUELINE Administration Heparin Sodium (Porcine) 0 unit 08/16/24 15:37 08/17/24 06:16 Heparin 5,000 Unit/Ml Inj 1 Ml IVP 1,400 unit PRN PRN Administration Heparin Weight Based Protocol -Subsequent Bolus Protocol Hydralazine HCl 100 mg 08/16/24 21:00 08/17/24 08:16 Hydralazine 50 Mg Tablet PO 100 mg TID JAQUELINE Administration Heparin Sodium/Sodium Chloride 25,000 unit in 500 mls @ 0 mls/hr 08/16/24 15:45 08/17/24 06:14 Heparin Drip IV 11.76 unit/kg/hr CONT JAQUELINE 16 mls/hr Protocol Titration Per Protocol Insulin Human Lispro 0 unit 08/16/24 21:00 08/17/24 12:26 Insulin Lispro 100 Unit/1 Ml SUBCUT 4 unit WM&BEDTIME JAQUELINE Administration Protocol Lisinopril 20 mg 08/17/24 09:00 08/17/24 07:16 Lisinopril 20 Mg Tablet PO 20 mg DAILY JAQUELINE Administration Loperamide HCl 2 mg 08/17/24 06:00 08/17/24 05:23 Loperamide 2 Mg Capsule PO 2 mg QAM JAQUELINE Administration Loperamide HCl 6 mg 08/16/24 18:00 08/16/24 17:34 Loperamide 2 Mg Capsule PO 6 mg QPM JAQUELINE Administration Mirtazapine 7.5 mg 08/17/24 09:00 08/17/24 08:16 Mirtazapine 15 Mg Tablet PO 7.5 mg DAILY JAQUELINE Administration Nifedipine 30 mg 08/17/24 09:00 08/17/24 08:15 Nifedipine Er (24 Hr) 30 Mg Tablet PO 30 mg DAILY JAQUELINE Administration Pantoprazole Sodium 40 mg 08/17/24 09:00 08/17/24 08:[address] 40 Mg Tablet PO 40 mg DAILY JAQUELINE Administration Ropinirole HCl 0.5 mg 08/16/24 18:00 08/16/24 17:35 Ropinirole 0.25 Mg Tablet PO 0.5 mg QPM JAQUELINE Administration Sevelamer Carbonate 800 - 1,600 mg 08/16/24 18:00 08/17/24 12:23 Sevelamer 800 Mg Tablet PO 800 mg TIDWM JAQUELINE Administration Sodium Bicarbonate 325 mg 08/17/24 09:00 08/17/24 08:14 Sodium Bicarbonate 650 Mg Tablet PO 325 mg DAILY JAQUELINE Administration Venlafaxine HCl 150 mg 08/17/24 09:00 08/17/24 08:15 Venlafaxine Er (24hr) 150 Mg Capsule PO 150 mg DAILY JAQUELINE Administration PFSH Acute PFSH: Medical History (Updated 08/17/24 @ 19:29 by Ursula Lyn MD) Chronic hypertension ESRD (end stage renal disease) Diabetic peripheral neuropathy associated with type 2 diabetes mellitus Ingrowing toenail of left foot Hematoma of leg Non-pressure chronic ulcer of 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 Bilateral pes planus Medical non-compliance Hypertensive urgency Closed right trimalleolar fracture Restless leg syndrome Peritonitis CAD (coronary artery disease) Depression End-stage renal disease on peritoneal dialysis Anemia Surgical History Hx of CABG Social History Smoking and tobacco/nicotine status: former use of tobacco/nicotine Alcohol intake: never Substance/Drug Use: current Other substance/drug use details: Medical marijuana Vitals/I&O/Wt Last Vital Signs Temp 97.7 F 08/17/24 08:30 Pulse 63 08/17/24 12:00 Resp 22 H 08/17/24 12:00 BP 188/100 08/17/24 12:00 Pulse Ox 97 08/17/24 12:00 O2 Del Method Nasal Cannula 08/17/24 08:30 FiO2 2 08/17/24 08:30 08/16/24 08/17/24 08/17/24 22:59 06:59 14:59 Intake Total 1150 / 1150 617.753 / 1767.753 Output Total 3500 / 3500 0 / 3500 Balance -2350 / -2350 617.753 / -1732.247 Weight last 48 hrs Weight 147 lb 6.4 oz Weight 147 lb 6.4 oz Weight 146 lb 9.718 oz Weight 154 lb Weight 150 lb Physical Exam Narrative: GENERAL: The patient is alert and oriented times three. Not in any acute distress. HEENT: No significant pallor, icterus or lymphadenopathy.Oral cavity: There are no mucous membrane lesions. NECK: Trachea appears to be central. No masses noted. No JVD or thyromegaly appreciated. Tracheostomy scar appears to be well-healed RESPIRATORY: Chest is symmetrical. No intercostals muscle retraction or any accessory muscle activation. There is no chest wall tenderness. Breath sounds are heard bilaterally. Few scattered coarse crackles in the lung bases BREASTS: Deferred. HEART: The heart sounds are normal. No S3 or S4. Short systolic murmur in the lower sternal border. No diastolic murmurs. No pericardial rub ABDOMEN: No vessel pulsations or distention. No tenderness. No organomegaly appreciated. Bowel sounds are normally heard. : Deferred. RECTAL: Deferred. LYMPHATIC: No lymphadenopathy noted in the neck. EXTREMITIES: Trace edema with no cyanosis no clubbing. MUSCULOSKELETAL: No acute joint deformities or swelling SKIN: There are no significant rashes or ecchymosis NEUROPSYCHIATRIC: The patient is alert and oriented x3. Appears to be in a good mood. No tremors or rigidity noted. Minimal right upper extremity weakness Data 08/18/24 05:31 08/18/24 05:31 Other Labs: Laboratory Last Values WBC 7.89 10^3/uL (3.29-11.43) 08/17/24 05:28 RBC 2.85 10^6/uL (3.85-5.65) L 08/17/24 05:28 Hgb 8.20 g/dL (11.27-16.99) L 08/17/24 05:28 Hct 27.1 % (37-53) L 05/09/25 05:28 MCV 95.1 fl (82-101) 08/17/24 05:28 MCH 28.8 pg (27-33) 08/17/24 05: MCHC 30.3 g/dL (30-55) 08/17/24 05:28 RDW 15.3 % (12.1-15.1) H 08/17/24 05:28 Plt Count 159 10^3/cmm (157-399) 08/17/24 05:28 MPV 10.9 fL (7.4-10.4) H 08/17/24 05:28 Neut % (Auto) 69.7 % 08/17/24 05:28 Lymph % (Auto) 16.7 % 08/17/24 05:28 [place] % (Auto) 9.6 % 08/17/24 05:28 Eos % (Auto) 2.5 % 08/17/24 05:28 Baso % (Auto) 1.1 % 08/17/24 05:28 Neut # (Auto) 5.49 10^3/uL (1.8-7.7) 08/17/24 05:28 Lymph # (Auto) 1.3 10^3/uL (0.8-4.8) 08/17/24 05:28 [place] # (Auto) 0.8 10^3/uL (0.2-0.9) 08/17/24 05:28 Eos # (Auto) 0.2 10^3/uL (0.0-0.8) 08/17/24 05:28 Baso # (Auto) 0.1 10^3/uL (0.0-0.1) 08/17/24 05:28 Nucleated RBC % (auto) 0.3 % 08/17/24 05:28 Nucleated RBCs # 0.0 /100WBC 08/17/24 05: APTT 37.6 SECONDS (23.9-36.7) H 08/17/24 12:40 Specimen Type Arterial 08/16/24 13:03 Sample Site Radial, left 08/16/24 13:03 ABG pH 7.49 (7.35-7.45) H 08/16/24 13:03 ABG pCO2 31.3 mmHg (35-45) L 08/16/24 13:03 ABG pO2 41.4 mmHg (80.0-100.0) L 08/16/24 13:03 ABG HCO3 23.7 mmol/L (22-26) 08/16/24 13:03 ABG Base Excess 0.8 mmol/L (-2.0-2.0) 08/16/24 13:03 Otoniel Test Pos 08/16/24 13:03 Hematocrit 30.3 % (42-52) L 08/16/24 13:03 O2 Delivery Device Nc 08/16/24 13:03 O2 Liters/Min 4.0 % 08/16/24 13:03 Senior Coldfusion Developer ID Walci 08/16/24 13:03 Sodium 139 mmol/L (136-145) 08/17/24 05:28 Potassium 3.8 mmol/L (3.5-5.1) 08/17/24 05:28 Chloride 101 mmol/L (98-107) 08/17/24 05:28 Carbon Dioxide 26 mmol/L (22-29) 08/17/24 05:28 Anion Gap 15.8 (5-19) 08/17/24 05:28 BUN 11 mg/dL (6-20) 08/17/24 05:28 Creatinine 3.1 mg/dL (0.7-1.2) H 08/17/24 05:28 GFR Calculation 22.0 mL/min (90-130) L 08/17/24 05:28 Glucose 116 mg/dL (65-115) H 08/17/24 05:28 POC Glucose 166 mg/dL (70-110) H 08/17/24 12:23 Calculated Osmolality 295 mOsm/kg (285-295) 08/16/24 12:25 Lactic Acid 2.6 mmol/L (0.5-2.2) H 08/16/24 12:25 Lactic Acid (Sepsis) 1.5 mmol/L (0.5-2.2) 08/16/24 15:43 Calcium 9.0 mg/dL (8.5-10.5) 08/17/24 05:28 Phosphorus 2.4 mg/dL (2.5-4.5) L 08/17/24 05:28 Magnesium 2.2 mg/dL (1.7-2.3) 08/16/24 12:25 Total Bilirubin 1.2 mg/dL (0.15-1.2) 08/16/24 12:25 AST 19 U/L (0-40) 08/16/24 12:25 ALT 9 U/L (0-41) 08/16/24 12:25 Alkaline Phosphatase 72 U/L (40-130) 08/16/24 12:25 Troponin T Baseline 385 ng/L (0-15) H* 08/16/24 12:25 Troponin T 120 Minute 379.0 ng/L (0-15) H 08/16/24 14:21 Delta Troponin T -6.0 ABS# (0-10) L 08/16/24 14:21 Troponin T Hi Sens 6Hr 360.1 ng/L (0-15) H 08/16/24 18:26 Troponin T Hi Sens 6Hr Delta -24.9 ng/L (0-12) L 08/16/24 18:26 NT-Pro-B Natriuret Pep > 99209 pg/mL (0-125) H 08/16/24 12:25 Total Protein 8.2 g/dL (6.6-8.7) 08/16/24 12:25 Albumin 3.3 g/dL (3.5-5.2) L 08/17/24 05:28 Globulin 3.9 g/dL (1.3-4.6) 08/16/24 12:25 Nasal MRSA (PCR) Mrsa detected (Negative) A 08/16/24 22:53 Hep Bs Antigen Non-reactive (Nonreactive) 08/16/24 12:25 Hep Bs Antibody 141.2 (11.5-1000) 08/16/24 12:25 Influenza A (PCR) Negative (Negative) 08/16/24 15:08 Influenza Type B (PCR) Negative (Negative) 08/16/24 15:08 RSV (PCR) Negative (Negative) 08/16/24 15:08 SARS-CoV-2 (PCR) Negative (Negative) 08/16/24 15:08 Micro: Microbiology 08/16/24 13:32 Blood Culture - Preliminary Blood Staphylococcus epidermidis 08/16/24 13:30 Blood Culture - Preliminary Blood SPECIMEN COLLECTED EKG 1: My Interpretation: Patient with a normal sinus rhythm, possible left atrial enlargement, poor R wave progression, diffuse nonspecific T wave changes and some features of LVH Other data: Echocardiogram from 08/16/2024 Normal left ventricular cavity size. Severely decreased left ventricular systolic function. Left ventricular ejection fraction is estimated at 31 %. Global left ventricular hypokinesis. Grade I/IV diastolic dysfunction (abnormal relaxation filling pattern), normal to mildly elevated filling pressures. Mildly increased left atrial size. Thickened mitral valve. No mitral valve stenosis. Moderate mitral valve regurgitation. Moderate tricuspid valve regurgitation. Mild pulmonary valve regurgitation. There is no pericardial effusion. Right atrial pressure is around 15-20 mm of mercury. A&P Assessment and plan (1) Elevated troponin: Patient seems to have elevated troponin T without any significant delta. This could be multifactorial. The end-stage renal disease, pulmonary emboli, congestive heart failure, etc. are contributing factors (2) Atherosclerosis of coronary artery of [place] heart without angina pectoris: This patient apparently had a four-vessel coronary bypass surgery in 2018. Possibility of progression of disease in the [place] vessels/grafts are considerations. This may need to be further evaluated. (3) Ischemic congestive cardiomyopathy: Patient was found to have LV ejection fraction of 31% based on the current echocardiogram. The previous LV ejection fraction is not available. Need to get the medical records from [facility]. (4) Pulmonary embolism: Patient has no previous history for pulmonary embolism. Source of embolization is not known at this point. (5) End stage kidney disease: Patient is on hemodialysis. This may be continued (6) Chronic hypertension: The blood pressure has been fluctuating. Currently the blood pressure is in the normal range Plan Other problems are History of CVA Type 2 diabetes Dyslipidemia Smoking abuse Possible pneumonia I will try to get the medical records from the [facility]. Patient may be carefully treated with IV diuretics/ dialysis. The patient may be started on GDMT Myocardial perfusion imaging to evaluate for any underlying coronary ischemia causing LV systolic dysfunction Also need to consider external defibrillator Based on the clinical progress and the results of the above, further recommendations will be made. Thank you for the opportunity to evaluate this patient and make these recommendations PDMP PDMP Reviewed: Not Reviewed Coding Level of Care Code 54340 Diagnoses Elevated troponin R79.89 Atherosclerosis of [place] coronary artery of [place] heart without angina pectoris I25.10 Coronary Disease-Associated Artery/Lesion type: [place] artery Ischemic congestive cardiomyopathy I25.5; I42.0 Multiple subsegmental pulmonary emboli without acute cor pulmonale I26.94 Pulmonary embolism type: multiple subsegmental (without acute cor pulmonale) End stage kidney disease N18.6 Chronic hypertension I10
[2024-08-17 15:22] LABS: Vancomycin Trough 22.1 ug/mL (10-15)
[2024-08-17] MEDS: ropinirole 0.25 mg Tablet 0.5 MG PO (17:40)
[2024-08-17] MEDS: amlodipine 5 mg Tablet PO (17:41)
[2024-08-17] MEDS: loperamide 2 mg Capsule 6 MG PO (17:41)
[2024-08-17 17:49] LABS: Glucose Point of Care 273 mg/dL (70-110)
--- NOTE | 2024-08-17 18:02 | PC.NURSE ---
SHift SUmmary: Uneventful shift. Up to a chair for most of the day. Blood pressures have been high, but by end of shift under control. Home dialysis schedule: Tuesday, , tuesday.
[2024-08-17] MEDS: heparin drip 25,000 UNIT/500 ML PREMIX 19 UNIT IV (18:33)
--- NOTE | 2024-08-17 19:19 | PC.NURSE ---
Record request sent to [facility] for last echocardiogram, stress test, and cabg form 2018.
[2024-08-17 19:52] LABS: Glucose Point of Care 252 mg/dL (70-110)
[2024-08-17 20:01] LABS: Partial Thromboplastin Time > 250.0 SECONDS (23.9-36.7)
[2024-08-17] MEDS: gabapentin 100 mg Capsule 200 MG PO (20:19)
[2024-08-18] VITALS (30 sets, daily range): BP systolic 110–166; BP diastolic 57–92; PULSE 55–69; RESP 9–32; TEMP 36.6–37.1; O2SAT 94–100
[2024-08-18] MEDS: cefepime 1,000 mg SDV 1000 MG IVP ×2 (01:58→14:54)
[2024-08-18] MEDS: gabapentin 100 mg Capsule PO (05:16)
[2024-08-18] MEDS: loperamide 2 mg Capsule PO (05:17)
[2024-08-18 05:41] LABS: Basophils # 0.1 10^3/uL (0.0-0.1); Basophils % 1.2 %; Eosinophils # 0.2 10^3/uL (0.0-0.8); Eosinophils % 3.6 %; Hematocrit 26.2 % (37-53); Lymphocytes % 15.7 %; Mean Corpuscular HGB Conc 30.2 g/dL (30-55); Mean Corpuscular Hemoglobin 29.4 pg (27-33); Mean Corpuscular Volume 97.4 fl (82-101); Mean Platelet Volume 11.1 fL (7.4-10.4); Monocytes # 0.7 10^3/uL (0.2-0.9); Monocytes % 10.3 %; Neutrophils # 4.41 10^3/uL (1.8-7.7); Neutrophils % 68.7 %; Nucleated Red Blood Cells # 0.1 /100WBC; Nucleated Red Blood Cells % 0.8 %; Platelet Count 155 10^3/cmm (157-399); Red Blood Count 2.69 10^6/uL (3.85-5.65); Red Cell Distribution Width 15.2 % (12.1-15.1); White Blood Count 6.42 10^3/uL (3.29-11.43)
[2024-08-18 05:52] LABS: Partial Thromboplastin Time 45.1 SECONDS (23.9-36.7)
[2024-08-18 06:00] LABS: Blood Urea Nitrogen 27 mg/dL (6-20); Calcium 9.2 mg/dL (8.5-10.5); Carbon Dioxide 24 mmol/L (22-29); Chloride 99 mmol/L (98-107); Creatinine Clr Calc Pharmacy 22.8536; Glomerular Filtration Rate 15.1 mL/min (90-130); Glucose 164 mg/dL (65-115); Phosphorus 2.5 mg/dL (2.5-4.5); Sodium 137 mmol/L (136-145)
[2024-08-18] MEDS: heparin 5,000 unit/mL INJ 1 mL IVP ×2 (06:04→19:19)
--- NOTE | 2024-08-18 07:16 | P.PN_ITS ---
Subjective 2 Subjective: no new c/o Medications: Reviewed: Yes Vitals/I&O/Wt Last Vital Signs Temp 98.3 F 08/18/24 05:18 Pulse 56 L 08/18/24 06:00 Resp 10 L 08/18/24 06:00 BP 125/68 08/18/24 06:00 Pulse Ox 95 08/18/24 06:00 O2 Del Method Nasal Cannula 08/17/24 17:00 O2 Flow Rate 2 08/17/24 17:00 FiO2 2 08/17/24 08:30 08/17/24 08/18/24 08/18/24 22:59 06:59 14:59 Intake Total 142.816 / 555.349 538.25 / 1093.599 Balance 142.816 / 555.349 538.25 / 1093.599 Weight last 48 hrs Weight 67.857 kg Weight 66.86 kg Weight 66.86 kg Weight 66.5 kg Weight 69.853 kg Weight 68.039 kg Physical Exam 2 Const: COMMON NORMALS: average body habitus GENERAL APPEARANCE: in distress ORIENTATION/CONSCIOUSNESS: Yes awake, Yes oriented to person and Yes oriented to place HENMT: COMMON NORMALS: normocephalic HEAD & SCALP: normocephalic Eye: COMMON NORMALS: EOMs intact bilaterally and no scleral icterus Neck/C-Spine: COMMON NORMALS: no JVD Resp: EFFORT & INSPECTION: Yes decreased respiratory effort AUSCULTATION: d iminished lung sounds Cardio: COMMON NORMALS: no JVD, regular rate, regular rhythm, S1 normal heart sound present, S2 normal heart sound present and No gallops present (Cardio) JUGULAR VENOUS DISTENTION: no JVD RATE: regular rate RHYTHM: regular rhythm HEART SOUNDS: S1 normal heart sound present and S2 normal heart sound present GI: COMMON NORMALS: Soft to palpation and non-tender PALPATION: Yes Soft to palpation Extremity: NARRATIVE EXTREMITY EXAM: trace RLE edema Neuro: SENSORIUM/ORIENTATION: Yes oriented to person and Yes oriented to place Skin: COMMON NORMALS: no rashes or lesions noted GENERAL SKIN EXAM: no rashes or lesions noted Data 08/18/24 05:31 08/18/24 05:31 Micro: Microbiology 08/16/24 13:30 Blood Culture - Preliminary Blood NEGATIVE TO DATE 08/16/24 13:32 Blood Culture - Preliminary Blood Staphylococcus epidermidis A&P Assessment and plan (1) End stage kidney disease: Plan 1. End-stage renal disease: On TTS schedule, patient presented with hypoxia,HD today , ultrafiltration as tolerated 2. Hypertension: Blood pressure elevated, resume home meds and reevaluate after HD 3. Acute on chronic respiratory failure: Multifactorial in the setting of pneumonia and pulmonary embolism as well as pulmonary edema 4. Anemia: Hemoglobin 7.9 , GIANCARLO with HD Patient evaluated using audiovisual cart. Time spent 40 minutes PDMP PDMP Reviewed: Not Reviewed Attestations 2 Medical Necessity Statement*: per demetrio Coding Level of Care Code Acute Code for Chg Fwd Diagnoses End stage kidney disease N18.6
[2024-08-18] MEDS: hyDRALAzine 50 mg Tablet 100 MG PO ×3 (08:27→21:10)
[2024-08-18] MEDS: venlafaxine ER (24HR) 150 mg Capsule PO (08:27)
[2024-08-18] MEDS: FUROsemide 40 mg Tablet 80 MG PO ×2 (08:27→18:00)
[2024-08-18] MEDS: lisinopril 20 mg Tablet PO (08:28)
[2024-08-18] MEDS: calcitriol 0.25 mcg Capsule 0.75 MCG PO (08:28)
[2024-08-18] MEDS: pantoprazole DR 40 mg Tablet PO (08:28)
[2024-08-18] MEDS: cloNIDine 0.1 mg Tablet 0.3 MG PO ×3 (08:28→21:10)
[2024-08-18] MEDS: NIFEdipine ER (24 hr) 30 mg Tablet PO (08:28)
[2024-08-18] MEDS: sodium bicarbonate 650 mg Tablet 325 MG PO (08:29)
[2024-08-18] MEDS: BuSPIRONE 10 mg Tablet 5 MG PO ×3 (08:29→21:10)
[2024-08-18] MEDS: mirtazapine 15 mg Tablet 7.5 MG PO (08:29)
[2024-08-18] MEDS: carvedilol 25 mg Tablet 50 MG PO ×3 (08:29→21:10)
[2024-08-18] MEDS: insulin lispro 100 unit/1 mL SUBCUT ×2 (08:30→18:02)
[2024-08-18] MEDS: epoetin alfa-epbx 10,000 unit/ml SDV (ESRD) 10000 UNIT SUBCUT (08:30)
[2024-08-18] MEDS: sevelamer 800 mg Tablet PO ×3 (09:49→18:01)
[2024-08-18 11:30] LABS: Glucose Point of Care 186 mg/dL (70-110)
[2024-08-18 11:30] LABS: Glucose Point of Care 79 mg/dL (70-110)
[2024-08-18] MEDS: heparin, porcine 1,000 unit/mL INJ 10 mL 1000 UNIT IV (11:35)
--- NOTE | 2024-08-18 12:21 | P.PN_ITS ---
Subjective 2 Subjective: No acute events overnight. Patient seen at his bedside and feels better today. Shortness of breath is improved. He has no new complaints. He denies chest pain. Medications: Reviewed: Yes Vitals/I&O/Wt Last Vital Signs Temp 98.3 F 08/18/24 05:18 Pulse 64 08/18/24 12:00 Resp 18 08/18/24 12:00 BP 145/86 08/18/24 12:00 Pulse Ox 99 08/18/24 12:00 O2 Del Method Nasal Cannula 08/17/24 17:00 O2 Flow Rate 2 08/17/24 17:00 FiO2 2 08/17/24 08:30 08/17/24 08/18/24 08/18/24 22:59 06:59 14:59 Intake Total 142.816 / 555.349 538.25 / 1093.599 472 / 472 Output Total 0 / 0 Balance 142.816 / 555.349 538.25 / 1093.599 472 / 472 Weight last 48 hrs Weight 67.857 kg Weight 66.86 kg Weight 66.86 kg Weight 66.5 kg Weight 69.853 kg Weight 68.039 kg Physical Exam 2 Narrative: General - Awake, alert, acutely ill-appearing, wearing nasal canula HEENT-normocephalic, atraumatic, PERRL Lungs-diminished breath sounds bilaterally, no crackles, no wheezes Cardiovascular-S1, S2, regular rate and rhythm Abdomen-soft, nontender, normal bowel sounds Extremities-no pedal edema Neuro-no gross focal deficits Data 08/18/24 05:31 08/18/24 05:31 Micro: Microbiology 08/16/24 13:30 Blood Culture - Preliminary Blood NEGATIVE TO DATE 08/16/24 13:32 Blood Culture - Preliminary Blood Staphylococcus epidermidis A&P Assessment and plan (1) Acute hypoxemic respiratory failure: (2) Elevated troponin: (3) End stage kidney disease: (4) Pulmonary edema: (5) Pulmonary embolism: (6) Community acquired pneumonia: (7) Depression: Plan # Acute hypoxic respiratory failure -In the setting of pneumonia, pulmonary edema, PE -Patient currently off Bipap -He is now on 2L supplemental oxygen - Wean oxygen as tolerated #Community-acquired pneumonia - Continue vancomycin and cefepime -MRSA is positive -Urine Legionella antigen- pending #Acute pulmonary embolism - CT scan showed acute segmental and subsegmental pulmonary emboli described above worse in the right upper lobe. - No evidence of right heart strain, patient does have elevated troponin - Heparin infusion started, can switch to Eliquis if no cardiac intervention planned # Elevated troponin - Thought to be due to type II demand ischemia -TTE showed a reduced EF- 31%, unclear if this is new -Cardiology following, follow recommendations # Pulmonary edema # Heart failure with reduced EF # Ischemic cardiomyopathy-patient is status post CABG - Continue Lasix - Dialysis for volume management # ESRD - Nephrology consulted for dialysis needs # Type 2 diabetes - Glucose checks, sliding scale insulin # History of hypertension -Patient's BP elevated - Continue antihypertensives # History of depression - Continue antidepressants PDMP PDMP Reviewed: Not Reviewed Attestations 2 Medical Necessity Statement*: Patient requires inpatient care for pneumonia, PE, HF, ESRD. Coding Level of Care Code Acute Code for [facility] Diagnoses Acute hypoxemic respiratory failure J96.01 Elevated troponin R79.89 End stage kidney disease N18.6 Pulmonary edema J81.1 Multiple subsegmental pulmonary emboli without acute cor pulmonale I26.94 Pulmonary embolism type: multiple subsegmental (without acute cor pulmonale) Community acquired pneumonia J18.9 Depression F32.A
[2024-08-18 12:42] LABS: Partial Thromboplastin Time 124.8 SECONDS (23.9-36.7)
[2024-08-18] MEDS: heparin, porcine 1,000 unit/mL INJ 10 mL 10000 UNIT INTRACATH (14:13)
[2024-08-18] MEDS: water for injection-sterile 20 ML 1000 ML (15:41)
[2024-08-18 17:20] LABS: Glucose Point of Care 275 mg/dL (70-110)
[2024-08-18 17:53] LABS: Partial Thromboplastin Time 41.3 SECONDS (23.9-36.7)
[2024-08-18] MEDS: ropinirole 0.25 mg Tablet 0.5 MG PO (18:00)
[2024-08-18] MEDS: loperamide 2 mg Capsule 6 MG PO (18:01)
[2024-08-18] MEDS: amlodipine 5 mg Tablet PO (18:01)
--- NOTE | 2024-08-18 19:41 | P.PN_ITS ---
Subjective 2 Subjective: Patient is getting hemodialysis today. There is any chest pain or shortness of breath. Vitals seems to be stable. He is afebrile. He is on oral anticoagulation. Medications: Medication Review Details: Current Medications Amlodipine Besylate (Amlodipine 5 Mg Tablet) 5 mg PO QPM [facility] Last Admin: 08/18/24 18:01 Dose: 5 mg Buspirone HCl (Buspirone 10 Mg Tablet) 5 mg PO TID [facility] Last Admin: 08/18/24 14:54 Dose: 5 mg Calcitriol (Calcitriol 0.25 Mcg Capsule) 0.75 mcg PO DAILY [facility] Last Admin: 08/18/24 08:28 Dose: 0.75 mcg Carvedilol (Carvedilol 25 Mg Tablet) 50 mg PO TID [facility] Last Admin: 08/18/24 14:55 Dose: 50 mg Cefepime HCl (Cefepime 1,000 Mg Sdv) 1,000 mg IVP Q12H [facility]; Protocol Last Admin: 08/18/24 14:54 Dose: 1,000 mg Clonidine HCl (Clonidine 0.1 Mg Tablet) 0.3 mg PO TID [facility] Last Admin: 08/18/24 14:55 Dose: 0.3 mg Furosemide (Furosemide 40 Mg Tablet) 80 mg PO BID [facility] Last Admin: 08/18/24 18:00 Dose: 80 mg Gabapentin (Gabapentin 100 Mg Capsule) 100 mg PO QAM [facility] Last Admin: 08/18/24 05:16 Dose: 100 mg Gabapentin (Gabapentin 100 Mg Capsule) 200 mg PO BEDTIME [facility] Last Admin: 08/17/24 20:19 Dose: 200 mg Glucagon (Glucagon 1 Mg/Ml Kit 1 Ml) 1 mg IM ONCE PRN; Protocol PRN Reason: Adult Acute Hypoglycemia Nursing Prot. Heparin Sodium (Porcine) (Heparin 5,000 Unit/Ml Inj 1 Ml) 0 unit IVP PRN PRN; Protocol PRN Reason: Heparin Weight Based Protocol -Subsequent Bolus Last Admin: 08/18/24 19:19 Dose: 2,700 unit Hydralazine HCl (Hydralazine 50 Mg Tablet) 100 mg PO TID [facility] Last Admin: 08/18/24 14:54 Dose: 100 mg Sodium Chloride (Sodium Chloride 0.9%) 1,000 mls @ 0 mls/hr IV .Q0M PRN PRN Reason: hypotension or symptomatic Heparin Sodium/Sodium Chloride (Heparin Drip) 25,000 unit in 500 mls @ 0 mls/hr IV CONT [facility]; Protocol Last Titration: 08/18/24 19:18 Dose: 11.02 unit/kg/hr, 15 mls/hr Dextrose (D5w) 500 mls @ 0 mls/hr IV ONCE PRN; Protocol PRN Reason: Adult Acute Hypoglycemia Prot Dextrose (D10w) 125 mls @ 750 mls/hr IV PRN PRN; Protocol PRN Reason: Adult Acute Hypoglycemia Nursing Protocol Dextrose (D10w) 250 mls @ 1,000 mls/hr IV PRN PRN; Protocol PRN Reason: Adult Acute Hypoglycemia Nursing Protocol Sodium Chloride (Sodium Chloride 0.9%) 1,000 mls @ 0 mls/hr IV .Q0M PRN PRN Reason: hypotension or symptomatic Albumin Human (Albumin) 12.5 gm in 50 mls @ 60 mls/hr IV PRN PRN PRN Reason: Hypotension and/or symptomatic Vancomycin HCl 500 mg/ Sodium (Chloride) 100 mls @ 200 mls/hr IV ONCE ONE Stop: 08/18/24 21:29 Insulin Human Lispro (Insulin Lispro 100 Unit/1 Ml) 0 unit SUBCUT WM&BEDTIME [facility]; Protocol Last Admin: 08/18/24 18:02 Dose: 10 unit Loperamide HCl (Loperamide 2 Mg Capsule) 2 mg PO QAM [facility] Last Admin: 08/18/24 05:17 Dose: 2 mg Loperamide HCl (Loperamide 2 Mg Capsule) 6 mg PO QPM [facility] Last Admin: 08/18/24 18:01 Dose: 6 mg Losartan Potassium (Losartan 50 Mg Tablet) 50 mg PO DAILY [facility] Stop: 08/21/24 23:59 Mirtazapine (Mirtazapine 15 Mg Tablet) 7.5 mg PO DAILY [facility] Last Admin: 08/18/24 08:29 Dose: 7.5 mg Nifedipine (Nifedipine Er (24 Hr) 30 Mg Tablet) 30 mg PO DAILY [facility] Last Admin: 08/18/24 08:28 Dose: 30 mg Non-Formulary Medication (Megestrol) 40 mg PO BID [facility] Pantoprazole Sodium (Pantoprazole Dr 40 Mg Tablet) 40 mg PO DAILY [facility] Last Admin: 08/18/24 08:28 Dose: 40 mg Ropinirole HCl (Ropinirole 0.25 Mg Tablet) 0.5 mg PO QPM [facility] Last Admin: 08/18/24 18:00 Dose: 0.5 mg Sevelamer Carbonate (Sevelamer 800 Mg Tablet) 800 - 1,600 mg PO TIDWM [facility] Last Admin: 08/18/24 18:01 Dose: 800 mg Sodium Bicarbonate (Sodium Bicarbonate 650 Mg Tablet) 325 mg PO DAILY [facility] Last Admin: 08/18/24 08:29 Dose: 325 mg Vancomycin HCl (Vancomycin 1,000 Mg Sdv (Pharmacy Mix)) 0 mg XX PRN PRN PRN Reason: Pharmacy to Dose Venlafaxine HCl (Venlafaxine Er (24hr) 150 Mg Capsule) 150 mg PO DAILY [facility] Last Admin: 08/18/24 08:27 Dose: 150 mg Vitals/I&O/Wt Last Vital Signs Temp 98.8 F 08/18/24 19:31 Pulse 63 08/18/24 19:00 Resp 23 H 08/18/24 19:00 BP 110/79 08/18/24 19:00 Pulse Ox 99 08/18/24 19:00 O2 Del Method Nasal Cannula 08/17/24 17:00 O2 Flow Rate 2 08/17/24 17:00 FiO2 2 08/17/24 08:30 08/18/24 08/18/24 08/18/24 06:59 14:59 22:59 Intake Total 538.25 / 1093.599 587.467 / 017.942 7253.4 / 1651.867 Output Total 0 / 0 3500 / 3500 Balance 538.25 / 1093.599 587.467 / 587.467 -2435.6 / -1848.133 Weight last 48 hrs Weight 147 lb 11.355 oz Weight 149 lb 9.6 oz Weight 147 lb 6.4 oz Weight 147 lb 6.4 oz Weight 146 lb 9.718 oz Physical Exam 2 Narrative: GENERAL: The patient is alert and oriented times three. Not in any acute distress. HEENT: No significant pallor, icterus or lymphadenopathy.Oral cavity: There are no mucous membrane lesions. NECK: Trachea appears to be central. No masses noted. No JVD or thyromegaly appreciated. Tracheostomy scar appears to be well-healed RESPIRATORY: Chest is symmetrical. No intercostals muscle retraction or any accessory muscle activation. There is no chest wall tenderness. Breath sounds are heard bilaterally. Few scattered coarse crackles in the lung bases BREASTS: Deferred. HEART: The heart sounds are normal. No S3 or S4. Short systolic murmur in the lower sternal border. No diastolic murmurs. No pericardial rub ABDOMEN: No vessel pulsations or distention. No tenderness. No organomegaly appreciated. Bowel sounds are normally heard. : Deferred. RECTAL: Deferred. LYMPHATIC: No lymphadenopathy noted in the neck. EXTREMITIES: Trace edema with no cyanosis no clubbing. MUSCULOSKELETAL: No acute joint deformities or swelling SKIN: There are no significant rashes or ecchymosis NEUROPSYCHIATRIC: The patient is alert and oriented x3. Appears to be in a good mood. No tremors or rigidity noted. Minimal right upper extremity weakness Data 08/18/24 05:31 08/18/24 05:31 Other Labs: Laboratory Last Values WBC 6.42 10^3/uL (3.29-11.43) 08/18/24 05: RBC 2.69 10^6/uL (3.85-5.65) L 08/18/24 05:31 Hgb 7.90 g/dL (11.27-16.99) L 08/18/24 05:31 Hct 26.2 % (37-53) L 08/18/24 05:31 MCV 97.4 fl (82-101) 08/18/24 05:31 MCH 29.4 pg (27-33) 08/18/24 05:31 MCHC 30.2 g/dL (30-55) 08/18/24 05:31 RDW 15.2 % (12.1-15.1) H 08/18/24 05:31 Plt Count 155 10^3/cmm (157-399) L 08/18/24 05:31 MPV 11.1 fL (7.4-10.4) H 08/18/24 05:31 Neut % (Auto) 68.7 % 08/18/24 05:31 Lymph % (Auto) 15.7 % 08/18/24 05:31 Bradford % (Auto) 10.3 % 08/18/24 05:31 Eos % (Auto) 3.6 % 08/18/24 05:31 Baso % (Auto) 1.2 % 08/18/24 05:31 Neut # (Auto) 4.41 10^3/uL (1.8-7.7) 08/18/24 05:31 Lymph # (Auto) 1.0 10^3/uL (0.8-4.8) 08/18/24 05:31 Bradford # (Auto) 0.7 10^3/uL (0.2-0.9) 08/18/24 05:31 Eos # (Auto) 0.2 10^3/uL (0.0-0.8) 08/18/24 05:31 Baso # (Auto) 0.1 10^3/uL (0.0-0.1) 08/18/24 05:31 Nucleated RBC % (auto) 0.8 % 08/18/24 05: Nucleated RBCs # 0.1 /100WBC 08/18/24 05:31 APTT 41.3 SECONDS (23.9-36.7) H D 08/18/24 17:27 Specimen Type Arterial 08/16/24 13:03 Sample Site Radial, left 08/16/24 13:03 ABG pH 7.49 (7.35-7.45) H 08/16/24 13:03 ABG pCO2 31.3 mmHg (35-45) L 08/16/24 13:03 ABG pO2 41.4 mmHg (80.0-100.0) L 08/16/24 13:03 ABG HCO3 23.7 mmol/L (22-26) 08/16/24 13:03 ABG Base Excess 0.8 mmol/L (-2.0-2.0) 08/16/24 13:03 Otoniel Test Pos 08/16/24 13:03 Hematocrit 30.3 % (42-52) L 08/16/24 13:03 O2 Delivery Device Nc 08/16/24 13:03 O2 Liters/Min 4.0 % 08/16/24 13:03 Technology Lab Teacher ID [employer] 08/16/24 13:03 Sodium 137 mmol/L (136-145) 08/18/24 05:31 Potassium 4.0 mmol/L (3.5-5.1) 08/18/24 05:31 Chloride 99 mmol/L (98-107) 08/18/24 05:31 Carbon Dioxide 24 mmol/L (22-29) 08/18/24 05:31 Anion Gap 18.0 (5-19) 08/18/24 05:31 BUN 27 mg/dL (6-20) H 08/18/24 05:31 Creatinine 4.3 mg/dL (0.7-1.2) H 08/18/24 05:31 GFR Calculation 15.1 mL/min (90-130) L 08/18/24 05:31 Glucose 164 mg/dL (65-115) H 08/18/24 05:31 POC Glucose 275 mg/dL (70-110) H 08/18/24 16:22 Calculated Osmolality 295 mOsm/kg (285-295) 08/16/24 12:25 Lactic Acid 2.6 mmol/L (0.5-2.2) H 08/16/24 12:25 Lactic Acid (Sepsis) 1.5 mmol/L (0.5-2.2) 08/16/24 15:43 Calcium 9.2 mg/dL (8.5-10.5) 08/18/24 05:31 Phosphorus 2.5 mg/dL (2.5-4.5) 08/18/24 05:31 Magnesium 2.2 mg/dL (1.7-2.3) 08/16/24 12:25 Total Bilirubin 1.2 mg/dL (0.15-1.2) 08/16/24 12:25 AST 19 U/L (0-40) 08/16/24 12:25 ALT 9 U/L (0-41) 08/16/24 12:25 Alkaline Phosphatase 72 U/L (40-130) 08/16/24 12:25 Troponin T Baseline 385 ng/L (0-15) H* 08/16/24 12:25 Troponin T 120 Minute 379.0 ng/L (0-15) H 08/16/24 14:21 Delta Troponin T -6.0 ABS# (0-10) L 08/16/24 14:21 Troponin T Hi Sens 6Hr 360.1 ng/L (0-15) H 08/16/24 18:26 Troponin T Hi Sens 6Hr Delta -24.9 ng/L (0-12) L 08/16/24 18:26 NT-Pro-B Natriuret Pep > 68524 pg/mL (0-125) H 08/16/24 12:25 Total Protein 8.2 g/dL (6.6-8.7) 08/16/24 12:25 Albumin 3.0 g/dL (3.5-5.2) L 08/18/24 05:31 Globulin 3.9 g/dL (1.3-4.6) 08/16/24 12:25 Nasal MRSA (PCR) Mrsa detected (Negative) A 08/16/24 22:53 Vancomycin Trough 22.1 ug/mL (10-15) H 08/17/24 14:41 Random Vancomycin 19.0 ug/mL (20.0-40.0) L 08/18/24 05:31 Hep Bs Antigen Non-reactive (Nonreactive) 08/16/24 12: Hep Bs Antibody 141.2 (11.5-1000) 08/16/24 12:25 Influenza A (PCR) Negative (Negative) 08/16/24 15:08 Influenza Type B (PCR) Negative (Negative) 08/16/24 15:08 RSV (PCR) Negative (Negative) 08/16/24 15:08 SARS-CoV-2 (PCR) Negative (Negative) 08/16/24 15:08 A&P Assessment and plan (1) Elevated troponin: Patient seems to have elevated troponin T without any significant delta. This could be multifactorial. The end-stage renal disease, pulmonary emboli, congestive heart failure, etc. are contributing factors In view of the severe LV systolic dysfunction, possibility of underlying coronary ischemia causing this cannot be excluded. May consider doing a Myocardial perfusion imaging to better evaluate the coronary status. (2) Atherosclerosis of coronary artery of [place] heart without angina pectoris: This patient apparently had a four-vessel coronary bypass surgery in 2018. Possibility of progression of disease in the [place] vessels/grafts are considerations. This may need to be further evaluated. Will go ahead and schedule for a Lexiscan/sestamibi/sestamibi stress test on Tuesday (3) Ischemic congestive cardiomyopathy: Patient was found to have LV ejection fraction of 31% based on the current echocardiogram. The previous LV ejection fraction is not available. Need to get the medical records from [facility]. Still waiting for the records. Patient may be treated carefully treated with diuretics for the decompensated heart failure (4) Pulmonary embolism: Patient has no previous history for pulmonary embolism. Source of embolization is not known at this point. (5) End stage kidney disease: Patient is on hemodialysis. This may be continued (6) Chronic hypertension: The blood pressure has been fluctuating. Currently the blood pressure is in the normal range Plan Other problems are History of CVA Type 2 diabetes Dyslipidemia Smoking abuse Possible pneumonia I will try to get the medical records from the [facility]. Patient may be carefully treated with IV diuretics/ dialysis. The patient may be started on GDMT. Will discontinue the lisinopril. Start him on losartan 50 mg p.o. daily. May start on Entresto 3 days from now. Myocardial perfusion imaging to evaluate for any underlying coronary ischemia causing LV systolic dysfunction Also need to consider external defibrillator We may go ahead and schedule this on Tuesday. PDMP PDMP Reviewed: Not Reviewed Attestations 2 Medical Necessity Statement*: Patient requires continued hospital stay for close monitoring and further management Coding Level of Care Code 24805 Diagnoses Elevated troponin R79.89 Atherosclerosis of [place] coronary artery of [place] heart without angina pectoris I25.10 Coronary Disease-Associated Artery/Lesion type: [place] artery Ischemic congestive cardiomyopathy I25.5; I42.0 Multiple subsegmental pulmonary emboli without acute cor pulmonale I26.94 Pulmonary embolism type: multiple subsegmental (without acute cor pulmonale) End stage kidney disease N18.6 Chronic hypertension I10
[2024-08-18 20:00] LABS: Glucose Point of Care 108 mg/dL (70-110)
[2024-08-18] MEDS: gabapentin 100 mg Capsule 200 MG PO (21:10)
[2024-08-18] MEDS: vancomycin 500 MG in sodium chloride 0.9% (plus) 100 ML 200 MG IV (21:11)
[2024-08-19] VITALS (34 sets, daily range): BP systolic 111–163; BP diastolic 54–92; PULSE 58–72; RESP 7–29; TEMP 36.6–36.8; O2SAT 92–100
[2024-08-19 01:24] LABS: Partial Thromboplastin Time 44.3 SECONDS (23.9-36.7)
[2024-08-19] MEDS: heparin 5,000 unit/mL INJ 1 mL IVP (01:33)
[2024-08-19] MEDS: cefepime 1,000 mg SDV 1000 MG IVP ×2 (01:35→15:42)
[2024-08-19] MEDS: gabapentin 100 mg Capsule PO (05:15)
[2024-08-19] MEDS: loperamide 2 mg Capsule PO (05:15)
[2024-08-19 05:17] LABS: Basophils # 0.1 10^3/uL (0.0-0.1); Eosinophils # 0.3 10^3/uL (0.0-0.8); Eosinophils % 3.6 %; Lymphocytes # 1.2 10^3/uL (0.8-4.8); Lymphocytes % 14.3 %; Mean Corpuscular HGB Conc 30.4 g/dL (30-55); Mean Corpuscular Hemoglobin 29.4 pg (27-33); Mean Corpuscular Volume 96.8 fl (82-101); Mean Platelet Volume 10.8 fL (7.4-10.4); Monocytes # 0.7 10^3/uL (0.2-0.9); Neutrophils % 71.4 %; Nucleated Red Blood Cells # 0.1 /100WBC; Nucleated Red Blood Cells % 0.7 %; Platelet Count 172 10^3/cmm (157-399); Red Blood Count 2.79 10^6/uL (3.85-5.65); Red Cell Distribution Width 15.3 % (12.1-15.1); White Blood Count 8.26 10^3/uL (3.29-11.43)
[2024-08-19 05:40] LABS: Albumin Level 3.4 g/dL (3.5-5.2); Anion Gap 14.8 (5-19); Blood Urea Nitrogen 22 mg/dL (6-20); Calcium 9.5 mg/dL (8.5-10.5); Carbon Dioxide 27 mmol/L (22-29); Chloride 99 mmol/L (98-107); Glomerular Filtration Rate 17.4 mL/min (90-130); Glucose 126 mg/dL (65-115); Phosphorus 2.2 mg/dL (2.5-4.5); Potassium 4.8 mmol/L (3.5-5.1); Sodium 136 mmol/L (136-145); Vancomycin Random 20.8 ug/mL (20.0-40.0)
[2024-08-19] MEDS: heparin drip 25,000 UNIT/500 ML PREMIX 18 UNIT IV (07:02)
[2024-08-19 07:21] LABS: Glucose Point of Care 132 mg/dL (70-110)
[2024-08-19 07:50] LABS: Partial Thromboplastin Time 44.9 SECONDS (23.9-36.7)
--- NOTE | 2024-08-19 08:11 | PM.PN ---
Subjective Subjective: The patient was seen and examined. The patient is still weak in bed possible commands. Using nasal cannula oxygen. States he is feeling better with dialysis. Has no nausea or vomiting or diarrhea. Rest review of systems is unchanged. Medications: Reviewed: Yes Medication Review Details: Current Medications Amlodipine Besylate (Amlodipine 5 Mg Tablet) 5 mg PO QPM [facility] Last Admin: 08/18/24 18:01 Dose: 5 mg Buspirone HCl (Buspirone 10 Mg Tablet) 5 mg PO TID [facility] Last Admin: 08/18/24 21:10 Dose: 5 mg Calcitriol (Calcitriol 0.25 Mcg Capsule) 0.75 mcg PO DAILY [facility] Last Admin: 08/18/24 08:28 Dose: 0.75 mcg Carvedilol (Carvedilol 25 Mg Tablet) 50 mg PO TID [facility] Last Admin: 08/18/24 21:10 Dose: 50 mg Cefepime HCl (Cefepime 1,000 Mg Sdv) 1,000 mg IVP Q12H [facility]; Protocol Last Admin: 08/19/24 01:35 Dose: 1,000 mg Clonidine HCl (Clonidine 0.1 Mg Tablet) 0.3 mg PO TID [facility] Last Admin: 08/18/24 21:10 Dose: 0.3 mg Furosemide (Furosemide 40 Mg Tablet) 80 mg PO BID [facility] Last Admin: 08/18/24 18:00 Dose: 80 mg Gabapentin (Gabapentin 100 Mg Capsule) 100 mg PO QAM [facility] Last Admin: 08/19/24 05:15 Dose: 100 mg Gabapentin (Gabapentin 100 Mg Capsule) 200 mg PO BEDTIME [facility] Last Admin: 08/18/24 21:10 Dose: 200 mg Glucagon (Glucagon 1 Mg/Ml Kit 1 Ml) 1 mg IM ONCE PRN; Protocol PRN Reason: Adult Acute Hypoglycemia Nursing Prot. Heparin Sodium (Porcine) (Heparin 5,000 Unit/Ml Inj 1 Ml) 0 unit IVP PRN PRN; Protocol PRN Reason: Heparin Weight Based Protocol -Subsequent Bolus Last Admin: 08/19/24 01:33 Dose: 2,700 unit Hydralazine HCl (Hydralazine 50 Mg Tablet) 100 mg PO TID [facility] Last Admin: 08/18/24 21:10 Dose: 100 mg Sodium Chloride (Sodium Chloride 0.9%) 1,000 mls @ 0 mls/hr IV .Q0M PRN PRN Reason: hypotension or symptomatic Heparin Sodium/Sodium Chloride (Heparin Drip) 25,000 unit in 500 mls @ 0 mls/hr IV CONT [facility]; Protocol Last Admin: 08/19/24 07:02 Dose: 13.23 unit/kg/hr, 18 mls/hr Dextrose (D5w) 500 mls @ 0 mls/hr IV ONCE PRN; Protocol PRN Reason: Adult Acute Hypoglycemia Prot Dextrose (D10w) 125 mls @ 750 mls/hr IV PRN PRN; Protocol PRN Reason: Adult Acute Hypoglycemia Nursing Protocol Dextrose (D10w) 250 mls @ 1,000 mls/hr IV PRN PRN; Protocol PRN Reason: Adult Acute Hypoglycemia Nursing Protocol Sodium Chloride (Sodium Chloride 0.9%) 1,000 mls @ 0 mls/hr IV .Q0M PRN PRN Reason: hypotension or symptomatic Albumin Human (Albumin) 12.5 gm in 50 mls @ 60 mls/hr IV PRN PRN PRN Reason: Hypotension and/or symptomatic Insulin Human Lispro (Insulin Lispro 100 Unit/1 Ml) 0 unit SUBCUT WM&BEDTIME [facility]; Protocol Last Admin: 08/19/24 07:21 Dose: Not Given Loperamide HCl (Loperamide 2 Mg Capsule) 2 mg PO QAM [facility] Last Admin: 08/19/24 05:15 Dose: 2 mg Loperamide HCl (Loperamide 2 Mg Capsule) 6 mg PO QPM [facility] Last Admin: 08/18/24 18:01 Dose: 6 mg Losartan Potassium (Losartan 50 Mg Tablet) 50 mg PO DAILY [facility] Stop: 08/21/24 23:59 Mirtazapine (Mirtazapine 15 Mg Tablet) 7.5 mg PO DAILY [facility] Last Admin: 08/18/24 08:29 Dose: 7.5 mg Nifedipine (Nifedipine Er (24 Hr) 30 Mg Tablet) 30 mg PO DAILY [facility] Last Admin: 08/18/24 08:28 Dose: 30 mg Non-Formulary Medication (Megestrol) 40 mg PO BID [facility] Pantoprazole Sodium (Pantoprazole Dr 40 Mg Tablet) 40 mg PO DAILY [facility] Last Admin: 08/18/24 08:28 Dose: 40 mg Ropinirole HCl (Ropinirole 0.25 Mg Tablet) 0.5 mg PO QPM [facility] Last Admin: 08/18/24 18:00 Dose: 0.5 mg Sevelamer Carbonate (Sevelamer 800 Mg Tablet) 800 - 1,600 mg PO TIDWM [facility] Last Admin: 08/18/24 18:01 Dose: 800 mg Sodium Bicarbonate (Sodium Bicarbonate 650 Mg Tablet) 325 mg PO DAILY [facility] Last Admin: 08/18/24 08:29 Dose: 325 mg Vancomycin HCl (Vancomycin 1,000 Mg Sdv (Pharmacy Mix)) 0 mg XX PRN PRN PRN Reason: Pharmacy to Dose Venlafaxine HCl (Venlafaxine Er (24hr) 150 Mg Capsule) 150 mg PO DAILY [facility] Last Admin: 08/18/24 08:27 Dose: 150 mg Vitals/I&O/Wt Last Vital Signs Temp 98.3 F 08/19/24 04:00 Pulse 64 08/19/24 06:00 Resp 14 08/19/24 06:00 BP 145/88 08/19/24 06:00 Pulse Ox 95 08/19/24 00:00 O2 Del Method Nasal Cannula 08/17/24 17:00 O2 Flow Rate 2 08/17/24 17:00 FiO2 2 08/17/24 08:30 08/18/24 08/19/24 08/19/24 22:59 06:59 14:59 Intake Total 1164.4 / 1751.867 493.75 / 2245.617 77.7 / 77.7 Output Total 3500 / 3500 Balance -2335.6 / -1748.133 493.75 / -1254.383 77.7 / 77.7 Weight last 48 hrs Weight 66 kg Weight 67 kg Weight 67.857 kg Physical Exam Narrative: vital signs noted General - Awake, alert, acutely ill-appearing, wearing nasal canula HEENT-normocephalic, atraumatic, PERRL Lungs-diminished breath sounds bilaterally, no crackles, no wheezes Cardiovascular-S1, S2, regular rate and rhythm Abdomen-soft, nontender, normal bowel sounds Extremities-no pedal edema Neuro-appears weak and lethargic in bed. Awake alert oriented x 2. Dialysis access right IJ permacath. Data 08/19/24 04:57 08/19/24 04:57 A&P Assessment and plan (1) End stage kidney disease: Plan 1. End-stage renal disease: On TTS schedule, patient is status post hemodialysis access today. Can assess the need for extra ultrafiltration 2. Hypertension: Blood pressure is well-controlled. 3. Acute on chronic respiratory failure: Multifactorial in the setting of pneumonia and pulmonary embolism as well as pulmonary edema 4. Anemia: Hemoglobin 8.2 , GIANCARLO with HD. However will limit the dose of Epogen given pulmonary embolism and hypercoagulable risk with erythropoietin stimulating agents. Patient evaluated using audiovisual cart. PDMP PDMP Reviewed: Not Reviewed Attestations Medical Necessity Statement*: ESRD volume overload, pneumonia, pulmonary embolism, short of breath. Time Spent in Patient Care: 16 - 35 minutes (>than 50% of time spent in counselling and/or direct pt care on unit). Coding Level of Care Code Acute Code for Chg Fwd Diagnoses End stage kidney disease N18.6
[2024-08-19] MEDS: venlafaxine ER (24HR) 150 mg Capsule PO (08:37)
[2024-08-19] MEDS: cloNIDine 0.1 mg Tablet 0.3 MG PO ×2 (08:37→15:41)
[2024-08-19] MEDS: pantoprazole DR 40 mg Tablet PO (08:38)
[2024-08-19] MEDS: carvedilol 25 mg Tablet 50 MG PO ×3 (08:38→20:10)
[2024-08-19] MEDS: FUROsemide 40 mg Tablet 80 MG PO ×2 (08:38→17:39)
[2024-08-19] MEDS: NIFEdipine ER (24 hr) 30 mg Tablet PO (08:38)
[2024-08-19] MEDS: calcitriol 0.25 mcg Capsule 0.75 MCG PO (08:38)
[2024-08-19] MEDS: losartan 50 mg Tablet PO (08:38)
[2024-08-19] MEDS: hyDRALAzine 50 mg Tablet 100 MG PO ×2 (08:38→15:37)
[2024-08-19] MEDS: mirtazapine 15 mg Tablet 7.5 MG PO (08:38)
[2024-08-19] MEDS: BuSPIRONE 10 mg Tablet 5 MG PO ×3 (08:39→20:10)
[2024-08-19 08:52] LABS: Calcium 9.2 mg/dL (8.5-10.5)
[2024-08-19 09:00] LABS: Parathyroid Hormone 65.4 pg/mL (15-65)
--- NOTE | 2024-08-19 11:09 | P.PN_ITS ---
Subjective 2 Subjective: Chart reviewed. Patient is a 43-year-old male with a history of end-stage renal disease on hemodialysis Tuesday who presented initially for outpatient dialysis where he reported feeling short of breath and overall unwell. While he was undergoing dialysis his shortness of breath worsened and he was transferred to the emergency room on 08/16. He underwent CTA of the chest which showed Acute segmental and subsegmental pulmonary emboli described above worse in the RIGHT upper lobe. Additionally had evidence of elevated troponins thought to be type II IA and pulmonary edema for which he has subsequently received dialysis and IV Lasix. Echocardiogram showed severely decreased LVEF of 31% with global left ventricular hypokinesia, grade 1 diastolic dysfunction. Mild pulmonary valve regurgitation. Last coronary angiogram in 2018 per patient. Medications: Reviewed: Yes Medication Review Details: Current Medications Amlodipine Besylate (Amlodipine 5 Mg Tablet) 5 mg PO QPM [facility] Last Admin: 08/18/24 18:01 Dose: 5 mg Buspirone HCl (Buspirone 10 Mg Tablet) 5 mg PO TID [facility] Last Admin: 08/18/24 21:10 Dose: 5 mg Calcitriol (Calcitriol 0.25 Mcg Capsule) 0.75 mcg PO DAILY [facility] Last Admin: 08/18/24 08:28 Dose: 0.75 mcg Carvedilol (Carvedilol 25 Mg Tablet) 50 mg PO TID [facility] Last Admin: 08/18/24 21:10 Dose: 50 mg Cefepime HCl (Cefepime 1,000 Mg Sdv) 1,000 mg IVP Q12H [facility]; Protocol Last Admin: 08/19/24 01:35 Dose: 1,000 mg Clonidine HCl (Clonidine 0.1 Mg Tablet) 0.3 mg PO TID [facility] Last Admin: 08/18/24 21:10 Dose: 0.3 mg Furosemide (Furosemide 40 Mg Tablet) 80 mg PO BID [facility] Last Admin: 08/18/24 18:00 Dose: 80 mg Gabapentin (Gabapentin 100 Mg Capsule) 100 mg PO QAM [facility] Last Admin: 08/19/24 05:15 Dose: 100 mg Gabapentin (Gabapentin 100 Mg Capsule) 200 mg PO BEDTIME [facility] Last Admin: 08/18/24 21:10 Dose: 200 mg Glucagon (Glucagon 1 Mg/Ml Kit 1 Ml) 1 mg IM ONCE PRN; Protocol PRN Reason: Adult Acute Hypoglycemia Nursing Prot. Heparin Sodium (Porcine) (Heparin 5,000 Unit/Ml Inj 1 Ml) 0 unit IVP PRN PRN; Protocol PRN Reason: Heparin Weight Based Protocol -Subsequent Bolus Last Admin: 08/19/24 01:33 Dose: 2,700 unit Hydralazine HCl (Hydralazine 50 Mg Tablet) 100 mg PO TID [facility] Last Admin: 08/18/24 21:10 Dose: 100 mg Sodium Chloride (Sodium Chloride 0.9%) 1,000 mls @ 0 mls/hr IV .Q0M PRN PRN Reason: hypotension or symptomatic Heparin Sodium/Sodium Chloride (Heparin Drip) 25,000 unit in 500 mls @ 0 mls/hr IV CONT [facility]; Protocol Last Admin: 08/19/24 07:02 Dose: 13.23 unit/kg/hr, 18 mls/hr Dextrose (D5w) 500 mls @ 0 mls/hr IV ONCE PRN; Protocol PRN Reason: Adult Acute Hypoglycemia Prot Dextrose (D10w) 125 mls @ 750 mls/hr IV PRN PRN; Protocol PRN Reason: Adult Acute Hypoglycemia Nursing Protocol Dextrose (D10w) 250 mls @ 1,000 mls/hr IV PRN PRN; Protocol PRN Reason: Adult Acute Hypoglycemia Nursing Protocol Sodium Chloride (Sodium Chloride 0.9%) 1,000 mls @ 0 mls/hr IV .Q0M PRN PRN Reason: hypotension or symptomatic Albumin Human (Albumin) 12.5 gm in 50 mls @ 60 mls/hr IV PRN PRN PRN Reason: Hypotension and/or symptomatic Insulin Human Lispro (Insulin Lispro 100 Unit/1 Ml) 0 unit SUBCUT WM&BEDTIME [facility]; Protocol Last Admin: 08/19/24 07:21 Dose: Not Given Loperamide HCl (Loperamide 2 Mg Capsule) 2 mg PO QAM [facility] Last Admin: 08/19/24 05:15 Dose: 2 mg Loperamide HCl (Loperamide 2 Mg Capsule) 6 mg PO QPM [facility] Last Admin: 08/18/24 18:01 Dose: 6 mg Losartan Potassium (Losartan 50 Mg Tablet) 50 mg PO DAILY [facility] Stop: 08/21/24 23:59 Mirtazapine (Mirtazapine 15 Mg Tablet) 7.5 mg PO DAILY [facility] Last Admin: 08/18/24 08:29 Dose: 7.5 mg Nifedipine (Nifedipine Er (24 Hr) 30 Mg Tablet) 30 mg PO DAILY [facility] Last Admin: 08/18/24 08:28 Dose: 30 mg Non-Formulary Medication (Megestrol) 40 mg PO BID [facility] Pantoprazole Sodium (Pantoprazole Dr 40 Mg Tablet) 40 mg PO DAILY [facility] Last Admin: 08/18/24 08:28 Dose: 40 mg Ropinirole HCl (Ropinirole 0.25 Mg Tablet) 0.5 mg PO QPM [facility] Last Admin: 08/18/24 18:00 Dose: 0.5 mg Sevelamer Carbonate (Sevelamer 800 Mg Tablet) 800 - 1,600 mg PO TIDWM [facility] Last Admin: 08/18/24 18:01 Dose: 800 mg Sodium Bicarbonate (Sodium Bicarbonate 650 Mg Tablet) 325 mg PO DAILY [facility] Last Admin: 08/18/24 08:29 Dose: 325 mg Vancomycin HCl (Vancomycin 1,000 Mg Sdv (Pharmacy Mix)) 0 mg XX PRN PRN PRN Reason: Pharmacy to Dose Venlafaxine HCl (Venlafaxine Er (24hr) 150 Mg Capsule) 150 mg PO DAILY [facility] Last Admin: 08/18/24 08:27 Dose: 150 mg Vitals/I&O/Wt Last Vital Signs Temp 98.3 F 08/19/24 04:00 Pulse 61 08/19/24 10:00 Resp 14 08/19/24 10:00 BP 140/88 08/19/24 10:00 Pulse Ox 100 08/19/24 10:00 O2 Del Method Nasal Cannula 08/19/24 09:34 O2 Flow Rate 3 08/19/24 09:34 FiO2 2 08/17/24 08:30 08/18/24 08/19/24 08/19/24 22:59 06:59 14:59 Intake Total 1164.4 / 1751.867 493.75 / 2245.617 426.3 / 426.3 Output Total 3500 / 3500 Balance -2335.6 / -1748.133 493.75 / -1254.383 426.3 / 426.3 Weight last 48 hrs Weight 66 kg Weight 67 kg Weight 67.857 kg Physical Exam 2 Narrative: General: No acute distress, AO x3 HEENT: PERRLA, pupils bilaterally equal and reactive, pallors not present Chest: Normal vesicular breath sounds, no added sounds, equal good air entry bilaterally CVS: S1-S2 regular, no murmurs, no tachycardia, no gallops, no rubs Abdomen: Soft, nontender, no organomegaly, bowel sounds present Neuro: No focal deficits, no facial deformity, AO x3, power 5/5 in all limbs Data 08/19/24 04:57 08/19/24 04:57 A&P Assessment and plan (1) Acute hypoxemic respiratory failure: (2) Elevated troponin: (3) End stage kidney disease: (4) Pulmonary edema: (5) Pulmonary embolism: (6) Community acquired pneumonia: (7) Depression: Plan # Acute hypoxic respiratory failure -In the setting of pneumonia, pulmonary edema, PE -Patient currently off Bipap -He is now on 2L supplemental oxygen - Wean oxygen as tolerated #Community-acquired pneumonia - Continue vancomycin and cefepime -MRSA is positive -Urine Legionella antigen- pending #Acute pulmonary embolism - CT scan showed acute segmental and subsegmental pulmonary emboli described above worse in the right upper lobe. - No evidence of right heart strain, patient does have elevated troponin - Heparin infusion started, can switch to Eliquis if no cardiac intervention planned # Elevated troponin - Thought to be due to type II demand ischemia -TTE showed a reduced EF- 31%, unclear if this is new -Cardiology following, follow recommendations # Pulmonary edema # Heart failure with reduced EF # Ischemic cardiomyopathy-patient is status post CABG - Continue Lasix - Dialysis for volume management # ESRD - Nephrology consulted for dialysis needs # Type 2 diabetes - Glucose checks, sliding scale insulin # History of hypertension -Patient's BP elevated - Continue antihypertensives # History of depression - Continue antidepressants August 19, 2024 Chart reviewed. Continue heparin drip for pulmonary embolism. Aim to transition to Eliquis over the next 24 to 48 hours once angiogram has been completed. With new noted drop in EF, planned ischemic evaluation with corornary angiogram tomorrow. Medical management optimized by cardiology. Review of prior stress test from October 2023 had revealed patchy areas of decreased tracer uptake in the anteroseptal mild inferior and inferolateral regions with some ischemia in the mid inferior and inferior basal regions. Perhaps suggestive of ischemia in the distribution of the RCA. LVEF at that time was 40% estimated on the stress test. Echocardiogram at that time estimated on her 2D echo was at 55 to 60%. Additionally obtain fecal occult blood testing prior to placing patient on Eliquis given chronic anemia. Currently hemoglobin is at 8.2, per review of previous numbers this has been as low as 6.9 previously. Suspect this is related to CKD however GI bleeding would need to be excluded prior to transitioning to Eliquis. Is currently afebrile, hemodynamically stable. Blood pressure is well- maintained. Appreciate nephrology recommendations for dialysis. Transfer to [facility] PDMP PDMP Reviewed: Not Reviewed Attestations 2 Medical Necessity Statement*: planned angiogram today for ischemic evlauation for drop in EF, RWMA, planned transition to DOAC, FOBT, dialysis Coding Level of Care Code Acute Code for [facility] Fwd Diagnoses Acute hypoxemic respiratory failure J96.01 Elevated troponin R79.89 End stage kidney disease N18.6 Pulmonary edema J81.1 Multiple subsegmental pulmonary emboli without acute cor pulmonale I26.94 Pulmonary embolism type: multiple subsegmental (without acute cor pulmonale) Community acquired pneumonia J18.9 Depression F32.A
[2024-08-19 11:48] LABS: Glucose Point of Care 257 mg/dL (70-110)
[2024-08-19] MEDS: insulin lispro 100 unit/1 mL SUBCUT ×2 (12:09→17:41)
[2024-08-19] MEDS: sevelamer 800 mg Tablet PO ×2 (12:09→17:41)
[2024-08-19 16:01] LABS: Partial Thromboplastin Time 53.5 SECONDS (23.9-36.7)
[2024-08-19] MEDS: water for injection-sterile 10 ML 1000 ML (16:04)
[2024-08-19 17:26] LABS: Glucose Point of Care 238 mg/dL (70-110)
[2024-08-19] MEDS: ropinirole 0.25 mg Tablet 0.5 MG PO (17:39)
[2024-08-19] MEDS: amlodipine 5 mg Tablet PO (17:39)
--- NOTE | 2024-08-19 18:07 | P.PN_ITS ---
Subjective 2 Subjective: Patient is feeling okay with no chest pain or chest tightness. No severe shortness of breath. Had the hemodialysis yesterday and seems to be doing okay. Vitals are remaining stable. Tolerating the losartan so far well Medications: Medication Review Details: Current Medications Amlodipine Besylate (Amlodipine 5 Mg Tablet) 5 mg PO QPM [facility] Last Admin: 08/19/24 17:39 Dose: 5 mg Buspirone HCl (Buspirone 10 Mg Tablet) 5 mg PO TID [facility] Last Admin: 08/19/24 15:41 Dose: 5 mg Calcitriol (Calcitriol 0.25 Mcg Capsule) 0.75 mcg PO DAILY [facility] Last Admin: 08/19/24 08:38 Dose: 0.75 mcg Carvedilol (Carvedilol 25 Mg Tablet) 50 mg PO TID [facility] Last Admin: 08/19/24 15:41 Dose: 50 mg Cefepime HCl (Cefepime 1,000 Mg Sdv) 1,000 mg IVP Q12H [facility]; Protocol Last Admin: 08/19/24 15:42 Dose: 1,000 mg Clonidine HCl (Clonidine 0.1 Mg Tablet) 0.3 mg PO TID [facility] Last Admin: 08/19/24 15:41 Dose: 0.3 mg Furosemide (Furosemide 40 Mg Tablet) 80 mg PO BID [facility] Last Admin: 08/19/24 17:39 Dose: 80 mg Gabapentin (Gabapentin 100 Mg Capsule) 100 mg PO QAM [facility] Last Admin: 08/19/24 05:15 Dose: 100 mg Gabapentin (Gabapentin 100 Mg Capsule) 200 mg PO BEDTIME [facility] Last Admin: 08/18/24 21:10 Dose: 200 mg Glucagon (Glucagon 1 Mg/Ml Kit 1 Ml) 1 mg IM ONCE PRN; Protocol PRN Reason: Adult Acute Hypoglycemia Nursing Prot. Heparin Sodium (Porcine) (Heparin 5,000 Unit/Ml Inj 1 Ml) 0 unit IVP PRN PRN; Protocol PRN Reason: Heparin Weight Based Protocol -Subsequent Bolus Last Admin: 08/19/24 01:33 Dose: 2,700 unit Hydralazine HCl (Hydralazine 50 Mg Tablet) 100 mg PO TID [facility] Last Admin: 08/19/24 15:37 Dose: 100 mg Sodium Chloride (Sodium Chloride 0.9%) 1,000 mls @ 0 mls/hr IV .Q0M PRN PRN Reason: hypotension or symptomatic Heparin Sodium/Sodium Chloride (Heparin Drip) 25,000 unit in 500 mls @ 0 mls/hr IV CONT [facility]; Protocol Last Titration: 08/19/24 16:03 Dose: 16.17 unit/kg/hr, 22 mls/hr Dextrose (D5w) 500 mls @ 0 mls/hr IV ONCE PRN; Protocol PRN Reason: Adult Acute Hypoglycemia Prot Dextrose (D10w) 125 mls @ 750 mls/hr IV PRN PRN; Protocol PRN Reason: Adult Acute Hypoglycemia Nursing Protocol Dextrose (D10w) 250 mls @ 1,000 mls/hr IV PRN PRN; Protocol PRN Reason: Adult Acute Hypoglycemia Nursing Protocol Sodium Chloride (Sodium Chloride 0.9%) 1,000 mls @ 0 mls/hr IV .Q0M PRN PRN Reason: hypotension or symptomatic Albumin Human (Albumin) 12.5 gm in 50 mls @ 60 mls/hr IV PRN PRN PRN Reason: Hypotension and/or symptomatic Insulin Human Lispro (Insulin Lispro 100 Unit/1 Ml) 0 unit SUBCUT WM&BEDTIME [facility]; Protocol Last Admin: 08/19/24 17:41 Dose: 8 unit Loperamide HCl (Loperamide 2 Mg Capsule) 2 mg PO QAM [facility] Last Admin: 08/19/24 05:15 Dose: 2 mg Loperamide HCl (Loperamide 2 Mg Capsule) 6 mg PO QPM [facility] Last Admin: 08/18/24 18:01 Dose: 6 mg Losartan Potassium (Losartan 50 Mg Tablet) 50 mg PO DAILY [facility] Stop: 08/21/24 23:59 Last Admin: 08/19/24 08:38 Dose: 50 mg Mirtazapine (Mirtazapine 15 Mg Tablet) 7.5 mg PO DAILY [facility] Last Admin: 08/19/24 08:38 Dose: 7.5 mg Nifedipine (Nifedipine Er (24 Hr) 30 Mg Tablet) 30 mg PO DAILY [facility] Last Admin: 08/19/24 08:38 Dose: 30 mg Non-Formulary Medication (Megestrol) 40 mg PO BID [facility] Pantoprazole Sodium (Pantoprazole Dr 40 Mg Tablet) 40 mg PO DAILY [facility] Last Admin: 08/19/24 08:38 Dose: 40 mg Ropinirole HCl (Ropinirole 0.25 Mg Tablet) 0.5 mg PO QPM [facility] Last Admin: 08/19/24 17:39 Dose: 0.5 mg Sevelamer Carbonate (Sevelamer 800 Mg Tablet) 800 mg PO TIDWM [facility] Last Admin: 08/19/24 17:41 Dose: 800 mg Vancomycin HCl (Vancomycin 1,000 Mg Sdv (Pharmacy Mix)) 0 mg XX PRN PRN PRN Reason: Pharmacy to Dose Venlafaxine HCl (Venlafaxine Er (24hr) 150 Mg Capsule) 150 mg PO DAILY [facility] Last Admin: 08/19/24 08:37 Dose: 150 mg Vitals/I&O/Wt Last Vital Signs Temp 98.3 F 08/19/24 04:00 Pulse 64 08/19/24 16:00 Resp 12 08/19/24 16:00 BP 137/83 08/19/24 16:00 Pulse Ox 98 08/19/24 16:00 O2 Del Method Nasal Cannula 08/19/24 09:34 O2 Flow Rate 3 08/19/24 09:34 FiO2 2 08/17/24 08:30 08/19/24 08/19/24 08/19/24 06:59 14:59 22:59 Intake Total 493.75 / 2245.617 676.3 / 676.3 142.65 / 818.95 Balance 493.75 / -1254.383 676.3 / 676.3 142.65 / 818.95 Weight last 48 hrs Weight 145 lb 8.081 oz Weight 147 lb 11.355 oz Weight 149 lb 9.6 oz Physical Exam 2 Narrative: GENERAL: The patient is alert and oriented times three. Not in any acute distress. HEENT: No significant pallor, icterus or lymphadenopathy.Oral cavity: There are no mucous membrane lesions. NECK: Trachea appears to be central. No masses noted. No JVD or thyromegaly appreciated. Tracheostomy scar appears to be well-healed RESPIRATORY: Chest is symmetrical. No intercostals muscle retraction or any accessory muscle activation. There is no chest wall tenderness. Breath sounds are heard bilaterally. Few scattered coarse crackles in the lung bases BREASTS: Deferred. HEART: The heart sounds are normal. No S3 or S4. Short systolic murmur in the lower sternal border. No diastolic murmurs. No pericardial rub ABDOMEN: No vessel pulsations or distention. No tenderness. No organomegaly appreciated. Bowel sounds are normally heard. : Deferred. RECTAL: Deferred. LYMPHATIC: No lymphadenopathy noted in the neck. EXTREMITIES: Trace edema with no cyanosis no clubbing. MUSCULOSKELETAL: No acute joint deformities or swelling SKIN: There are no significant rashes or ecchymosis NEUROPSYCHIATRIC: The patient is alert and oriented x3. Appears to be in a good mood. No tremors or rigidity noted. Minimal right upper extremity weakness Data 08/19/24 04:57 08/19/24 04:57 Other Labs: Laboratory Last Values WBC 8.26 10^3/uL (3.29-11.43) 08/19/24 04:57 RBC 2.79 10^6/uL (3.85-5.65) L 08/19/24 04:57 Hgb 8.20 g/dL (11.27-16.99) L 08/19/24 04:57 Hct 27.0 % (37-53) L 08/19/24 04:57 MCV 96.8 fl (82-101) 08/19/24 04:57 MCH 29.4 pg (27-33) 08/19/24 04:57 MCHC 30.4 g/dL (30-55) 08/19/24 04:57 RDW 15.3 % (12.1-15.1) H 08/19/24 04:57 Plt Count 172 10^3/cmm (157-399) 08/19/24 04:57 MPV 10.8 fL (7.4-10.4) H 08/19/24 04:57 Neut % (Auto) 71.4 % 08/19/24 04:57 Lymph % (Auto) 14.3 % 08/19/24 04:57 Porter % (Auto) 9.0 % 08/19/24 04:57 Eos % (Auto) 3.6 % 08/19/24 04:57 Baso % (Auto) 1.0 % 08/19/24 04:57 Neut # (Auto) 5.90 10^3/uL (1.8-7.7) 08/19/24 04:57 Lymph # (Auto) 1.2 10^3/uL (0.8-4.8) 08/19/24 04:57 Porter # (Auto) 0.7 10^3/uL (0.2-0.9) 08/19/24 04:57 Eos # (Auto) 0.3 10^3/uL (0.0-0.8) 08/19/24 04:57 Baso # (Auto) 0.1 10^3/uL (0.0-0.1) 08/19/24 04:57 Nucleated RBC % (auto) 0.7 % 08/19/24 04:57 Nucleated RBCs # 0.1 /100WBC 08/19/24 04:57 APTT 53.5 SECONDS (23.9-36.7) H 08/19/24 15:41 Specimen Type Arterial 08/16/24 13:03 Sample Site Radial, left 08/16/24 13:03 ABG pH 7.49 (7.35-7.45) H 08/16/24 13:03 ABG pCO2 31.3 mmHg (35-45) L 08/16/24 13:03 ABG pO2 41.4 mmHg (80.0-100.0) L 08/16/24 13:03 ABG HCO3 23.7 mmol/L (22-26) 08/16/24 13:03 ABG Base Excess 0.8 mmol/L (-2.0-2.0) 08/16/24 13:03 Otoniel Test Pos 08/16/24 13:03 Hematocrit 30.3 % (42-52) L 08/16/24 13:03 O2 Delivery Device Nc 08/16/24 13:03 O2 Liters/Min 4.0 % 08/16/24 13:03 Household Personal Assistant ID Stan 08/16/24 13:03 Sodium 136 mmol/L (136-145) 08/19/24 04:57 Potassium 4.8 mmol/L (3.5-5.1) 08/19/24 04:57 Chloride 99 mmol/L (98-107) 08/19/24 04:57 Carbon Dioxide 27 mmol/L (22-29) 08/19/24 04:57 Anion Gap 14.8 (5-19) 08/19/24 04:57 BUN 22 mg/dL (6-20) H 08/19/24 04:57 Creatinine 3.8 mg/dL (0.7-1.2) H 08/19/24 04:57 GFR Calculation 17.4 mL/min (90-130) L 08/19/24 04:57 Glucose 126 mg/dL (65-115) H 08/19/24 04:57 POC Glucose 238 mg/dL (70-110) H 08/19/24 17:21 Calculated Osmolality 295 mOsm/kg (285-295) 08/16/24 12:25 Lactic Acid 2.6 mmol/L (0.5-2.2) H 08/16/24 12:25 Lactic Acid (Sepsis) 1.5 mmol/L (0.5-2.2) 08/16/24 15:43 Calcium 9.5 mg/dL (8.5-10.5) 08/19/24 04:57 Phosphorus 2.2 mg/dL (2.5-4.5) L 08/19/24 04:57 Magnesium 2.2 mg/dL (1.7-2.3) 08/16/24 12:25 Total Bilirubin 1.2 mg/dL (0.15-1.2) 08/16/24 12:25 AST 19 U/L (0-40) 08/16/24 12:25 ALT 9 U/L (0-41) 08/16/24 12:25 Alkaline Phosphatase 72 U/L (40-130) 08/16/24 12:25 Troponin T Baseline 385 ng/L (0-15) H* 08/16/24 12:25 Troponin T 120 Minute 379.0 ng/L (0-15) H 08/16/24 14:21 Delta Troponin T -6.0 ABS# (0-10) L 08/16/24 14:21 Troponin T Hi Sens 6Hr 360.1 ng/L (0-15) H 08/16/24 18:26 Troponin T Hi Sens 6Hr Delta -24.9 ng/L (0-12) L 08/16/24 18:26 NT-Pro-B Natriuret Pep > 83872 pg/mL (0-125) H 08/16/24 12:25 Total Protein 8.2 g/dL (6.6-8.7) 08/16/24 12:25 Albumin 3.4 g/dL (3.5-5.2) L 08/19/24 04:57 Globulin 3.9 g/dL (1.3-4.6) 08/16/24 12:25 PTH Intact 65.4 pg/mL (15-65) H 08/19/24 04:57 Calcium (PTH Intact) 9.2 mg/dL (8.5-10.5) 08/19/24 04:57 Nasal MRSA (PCR) Mrsa detected (Negative) A 08/16/24 22:53 Vancomycin Trough 22.1 ug/mL (10-15) H 08/17/24 14:41 Random Vancomycin 20.8 ug/mL (20.0-40.0) 08/19/24 04:57 Hep Bs Antigen Non-reactive (Nonreactive) 08/16/24 12:25 Hep Bs Antibody 141.2 (11.5-1000) 08/16/24 12:25 Influenza A (PCR) Negative (Negative) 08/16/24 15:08 Influenza Type B (PCR) Negative (Negative) 08/16/24 15:08 RSV (PCR) Negative (Negative) 08/16/24 15:08 SARS-CoV-2 (PCR) Negative (Negative) 08/16/24 15:08 Micro: Microbiology 08/16/24 13:32 Blood Culture - Preliminary Blood Staphylococcus epidermidis Staphylococcus hominis A&P Assessment and plan (1) Elevated troponin: Patient seems to have elevated troponin T without any significant delta. This could be multifactorial. The end-stage renal disease, pulmonary emboli, congestive heart failure, etc. are contributing factors In view of the severe LV systolic dysfunction, possibility of underlying coronary ischemia causing this cannot be excluded. Patient apparently had a Myocardial perfusion imaging in November of last year. He was found to have areas of fixed defect to the small areas of reversible defect, suggesting myocardial scarring with possible preinfarction ischemia (2) Atherosclerosis of coronary artery of [place] heart without angina pectoris: This patient apparently had a four-vessel coronary bypass surgery in 2018. Possibility of progression of disease in the [place] vessels/grafts are considerations. This may need to be further evaluated. In view of the significant drop in the LV ejection fraction compared to a year ago, it may be appropriate to do a cardiac catheterization to evaluate the coronary status as well as the graft status and then decide on further management. (3) Ischemic congestive cardiomyopathy: Patient was found to have LV ejection fraction of 31% based on the current echocardiogram. The previous LV ejection fraction was 55 to 60% a year ago. (4) Pulmonary embolism: Patient has no previous history for pulmonary embolism. Source of embolization is not known at this point. (5) End stage kidney disease: Patient is on hemodialysis. This may be continued (6) Chronic hypertension: The blood pressure has been fluctuating. Currently the blood pressure is in the normal range Plan Other problems are History of CVA Type 2 diabetes Dyslipidemia Smoking abuse Possible pneumonia Still awaiting the medical records from [place] We may go ahead and do scheduled for a cardiac evaluation tomorrow to further evaluate the coronary status as well as the graft status. Based on the angiogram findings, further recommendations will be made May continue on the current medications for the time being. PDMP PDMP Reviewed: Not Reviewed Attestations 2 Medical Necessity Statement*: Patient requires continued hospital stay for close monitoring and further management Coding Level of Care Code 93632 Diagnoses Elevated troponin R79.89 Atherosclerosis of [place] coronary artery of [place] heart without angina pectoris I25.10 Coronary Disease-Associated Artery/Lesion type: [place] artery Ischemic congestive cardiomyopathy I25.5; I42.0 Multiple subsegmental pulmonary emboli without acute cor pulmonale I26.94 Pulmonary embolism type: multiple subsegmental (without acute cor pulmonale) End stage kidney disease N18.6 Chronic hypertension I10
[2024-08-19] MEDS: gabapentin 100 mg Capsule 200 MG PO (20:10)
[2024-08-19] MEDS: loperamide 2 mg Capsule 6 MG PO (20:10)
--- NOTE | 2024-08-19 20:21 | PC.NURSE ---
Starr Received order from Dr Xiao to hold patient's evening dose of 0.3 mg of clonidine and 100 mg of hydralazine due to patient's blood pressure of 119/82.
[2024-08-19 20:40] LABS: Glucose Point of Care 107 mg/dL (70-110)
[2024-08-19 22:43] LABS: Partial Thromboplastin Time 57.6 SECONDS (23.9-36.7)
[2024-08-20] VITALS (36 sets, daily range): BP systolic 116–163; BP diastolic 74–94; PULSE 59–88; RESP 9–28; TEMP 36.4–37.1; O2SAT 91–100
[2024-08-20] MEDS: cefepime 1,000 mg SDV 1000 MG IVP ×2 (03:09→14:13)
[2024-08-20] MEDS: gabapentin 100 mg Capsule PO (05:32)
[2024-08-20] MEDS: loperamide 2 mg Capsule PO (05:32)
[2024-08-20] MEDS: heparin drip 25,000 UNIT/500 ML PREMIX 22 UNIT IV (05:35)
[2024-08-20 06:02] LABS: Platelet Count 166 10^3/cmm (157-399)
[2024-08-20 06:17] LABS: Partial Thromboplastin Time 53.4 SECONDS (23.9-36.7)
[2024-08-20 06:23] LABS: Alanine Aminotransferase < 5 U/L (0-41); Albumin Level 3.1 g/dL (3.5-5.2); Alkaline Phosphatase 51 U/L (40-130); Anion Gap 18.7 (5-19); Aspartate Amino Transferase 12 U/L (0-40); Blood Urea Nitrogen 38 mg/dL (6-20); Calcium 10.2 mg/dL (8.5-10.5); Carbon Dioxide 22 mmol/L (22-29); Chloride 99 mmol/L (98-107); Creatinine Clr Calc Pharmacy 19.0667; Globulin 3.3 g/dL (1.3-4.6); Glomerular Filtration Rate 12.1 mL/min (90-130); Glucose 156 mg/dL (65-115); Magnesium 2.2 mg/dL (1.7-2.3); Osmolality Calculated 290 mOsm/kg (285-295); Phosphorus 2.6 mg/dL (2.5-4.5); Potassium 5.7 mmol/L (3.5-5.1); Sodium 134 mmol/L (136-145); Total Bilirubin 0.4 mg/dL (0.15-1.2); Total Protein 6.4 g/dL (6.6-8.7)
--- NOTE | 2024-08-20 07:35 | P.PN_ITS ---
Subjective 2 Subjective: The patient is using nasal cannula oxygen but states he is not short breath no nausea vomiting fevers chills itching cramps or diarrhea. Medications: Reviewed: Yes Medication Review Details: Current Medications Amlodipine Besylate (Amlodipine 5 Mg Tablet) 5 mg PO QPM [facility] Last Admin: 08/19/24 17:39 Dose: 5 mg Buspirone HCl (Buspirone 10 Mg Tablet) 5 mg PO TID [facility] Last Admin: 08/19/24 20:10 Dose: 5 mg Calcitriol (Calcitriol 0.25 Mcg Capsule) 0.75 mcg PO DAILY [facility] Last Admin: 08/19/24 08:38 Dose: 0.75 mcg Carvedilol (Carvedilol 25 Mg Tablet) 50 mg PO TID [facility] Last Admin: 08/19/24 20:10 Dose: 50 mg Cefepime HCl (Cefepime 1,000 Mg Sdv) 1,000 mg IVP Q12H [facility]; Protocol Last Admin: 08/20/24 03:09 Dose: 1,000 mg Clonidine HCl (Clonidine 0.1 Mg Tablet) 0.3 mg PO TID [facility] Last Admin: 08/20/24 00:06 Dose: Not Given Furosemide (Furosemide 40 Mg Tablet) 80 mg PO BID [facility] Last Admin: 08/19/24 17:39 Dose: 80 mg Gabapentin (Gabapentin 100 Mg Capsule) 100 mg PO QAM [facility] Last Admin: 08/20/24 05:32 Dose: 100 mg Gabapentin (Gabapentin 100 Mg Capsule) 200 mg PO BEDTIME [facility] Last Admin: 08/19/24 20:10 Dose: 200 mg Glucagon (Glucagon 1 Mg/Ml Kit 1 Ml) 1 mg IM ONCE PRN; Protocol PRN Reason: Adult Acute Hypoglycemia Nursing Prot. Heparin Sodium (Porcine) (Heparin 5,000 Unit/Ml Inj 1 Ml) 0 unit IVP PRN PRN; Protocol PRN Reason: Heparin Weight Based Protocol -Subsequent Bolus Last Admin: 08/19/24 01:33 Dose: 2,700 unit Hydralazine HCl (Hydralazine 50 Mg Tablet) 100 mg PO TID [facility] Last Admin: 08/20/24 00:06 Dose: Not Given Sodium Chloride (Sodium Chloride 0.9%) 1,000 mls @ 0 mls/hr IV .Q0M PRN PRN Reason: hypotension or symptomatic Heparin Sodium/Sodium Chloride (Heparin Drip) 25,000 unit in 500 mls @ 0 mls/hr IV CONT [facility]; Protocol Last Titration: 08/20/24 06:17 Dose: 16.9 unit/kg/hr, 23 mls/hr Dextrose (D5w) 500 mls @ 0 mls/hr IV ONCE PRN; Protocol PRN Reason: Adult Acute Hypoglycemia Prot Dextrose (D10w) 125 mls @ 750 mls/hr IV PRN PRN; Protocol PRN Reason: Adult Acute Hypoglycemia Nursing Protocol Dextrose (D10w) 250 mls @ 1,000 mls/hr IV PRN PRN; Protocol PRN Reason: Adult Acute Hypoglycemia Nursing Protocol Sodium Chloride (Sodium Chloride 0.9%) 1,000 mls @ 0 mls/hr IV .Q0M PRN PRN Reason: hypotension or symptomatic Albumin Human (Albumin) 12.5 gm in 50 mls @ 60 mls/hr IV PRN PRN PRN Reason: Hypotension and/or symptomatic Insulin Human Lispro (Insulin Lispro 100 Unit/1 Ml) 0 unit SUBCUT WM&BEDTIME [facility]; Protocol Last Admin: 08/19/24 20:24 Dose: Not Given Loperamide HCl (Loperamide 2 Mg Capsule) 2 mg PO QAM [facility] Last Admin: 08/20/24 05:32 Dose: 2 mg Loperamide HCl (Loperamide 2 Mg Capsule) 6 mg PO QPM [facility] Last Admin: 08/19/24 20:10 Dose: 6 mg Losartan Potassium (Losartan 50 Mg Tablet) 50 mg PO DAILY [facility] Stop: 08/21/24 23:59 Last Admin: 08/19/24 08:38 Dose: 50 mg Mirtazapine (Mirtazapine 15 Mg Tablet) 7.5 mg PO DAILY [facility] Last Admin: 08/19/24 08:38 Dose: 7.5 mg Nifedipine (Nifedipine Er (24 Hr) 30 Mg Tablet) 30 mg PO DAILY [facility] Last Admin: 08/19/24 08:38 Dose: 30 mg Non-Formulary Medication (Megestrol) 40 mg PO BID [facility] Pantoprazole Sodium (Pantoprazole Dr 40 Mg Tablet) 40 mg PO DAILY [facility] Last Admin: 08/19/24 08:38 Dose: 40 mg Ropinirole HCl (Ropinirole 0.25 Mg Tablet) 0.5 mg PO QPM [facility] Last Admin: 08/19/24 17:39 Dose: 0.5 mg Sevelamer Carbonate (Sevelamer 800 Mg Tablet) 800 mg PO TIDWM [facility] Last Admin: 08/19/24 17:41 Dose: 800 mg Vancomycin HCl (Vancomycin 1,000 Mg Sdv (Pharmacy Mix)) 0 mg XX PRN PRN PRN Reason: Pharmacy to Dose Venlafaxine HCl (Venlafaxine Er (24hr) 150 Mg Capsule) 150 mg PO DAILY [facility] Last Admin: 08/19/24 08:37 Dose: 150 mg Vitals/I&O/Wt Last Vital Signs Temp 97.7 F 08/20/24 05:39 Pulse 61 08/20/24 05:21 Resp 21 H 08/20/24 05:00 BP 134/79 08/20/24 05:00 Pulse Ox 92 08/20/24 05:00 O2 Del Method Nasal Cannula 08/19/24 09:34 O2 Flow Rate 3 08/19/24 09:34 FiO2 2 08/17/24 08:30 08/19/24 08/20/24 08/20/24 22:59 06:59 14:59 Intake Total 1070.05 / 1746.35 165.733 / 1912.083 Balance 1070.05 / 1746.35 165.733 / 1912.083 Weight last 48 hrs Weight 69.5 kg Weight 66 kg Weight 67 kg Physical Exam 2 Narrative: vital signs noted General - Awake, alert, acutely ill-appearing, wearing nasal canula HEENT-normocephalic, atraumatic, PERRL Lungs-diminished breath sounds bilaterally, no crackles, no wheezes Cardiovascular-S1, S2, regular rate and rhythm Abdomen-soft, nontender, normal bowel sounds Extremities-no pedal edema Neuro-awake alert oriented x 3 moving all extremities following commands. Dialysis access right IJ permacath. Data 08/20/24 05:40 08/20/24 05:40 Micro: Microbiology 08/16/24 13:32 Blood Culture - Preliminary Blood Staphylococcus epidermidis Staphylococcus hominis A&P Assessment and plan (1) End stage kidney disease: Plan 1. End-stage renal disease: On TTS schedule, patient is status post hemodialysis August 18. Due to his low EF hyperkalemia and shortness of breath we will plan for extra dialysis today and monitor. 2. Hypertension: Blood pressure is well-controlled. 3. Acute on chronic respiratory failure: Multifactorial in the setting of pneumonia and pulmonary embolism as well as pulmonary edema 4. Anemia: Hemoglobin 8.2 , GIANCARLO with HD. However will limit the dose of Epogen given pulmonary embolism and hypercoagulable risk with erythropoietin stimulating agents. 5. Appreciate cardiology as EF is decreased consideration of cardiac catheterization. Patient evaluated using audiovisual cart. The patient consents to dialysis. PDMP PDMP Reviewed: Not Reviewed Attestations 2 Medical Necessity Statement*: ESRD question of known coronary artery disease, heart failure reduced EF, hyperkalemia, shortness of breath Time Spent in Patient Care: Greater than 35 minutes (>than 50% of time spent in counselling and/or direct pt care on unit) . Coding Level of Care Code Acute Code for Chg Fwd Diagnoses End stage kidney disease N18.6
[2024-08-20 08:04] LABS: Glucose Point of Care 120 mg/dL (70-110)
--- NOTE | 2024-08-20 08:13 | PM.PN ---
Subjective Subjective: The patient is feeling okay with no chest pain or shortness of breath. Vitals are stable. No arrhythmias on the monitor. We have not yet received the medical records from [facility]. Medications: Medication Review Details: Current Medications Amlodipine Besylate (Amlodipine 5 Mg Tablet) 5 mg PO QPM [facility] Last Admin: 08/19/24 17:39 Dose: 5 mg Buspirone HCl (Buspirone 10 Mg Tablet) 5 mg PO TID [facility] Last Admin: 08/19/24 20:10 Dose: 5 mg Calcitriol (Calcitriol 0.25 Mcg Capsule) 0.75 mcg PO DAILY [facility] Last Admin: 08/19/24 08:38 Dose: 0.75 mcg Carvedilol (Carvedilol 25 Mg Tablet) 50 mg PO TID [facility] Last Admin: 08/19/24 20:10 Dose: 50 mg Cefepime HCl (Cefepime 1,000 Mg Sdv) 1,000 mg IVP Q12H [facility]; Protocol Last Admin: 08/20/24 03:09 Dose: 1,000 mg Clonidine HCl (Clonidine 0.1 Mg Tablet) 0.2 mg PO TID [facility] Furosemide (Furosemide 40 Mg Tablet) 80 mg PO BID [facility] Last Admin: 08/19/24 17:39 Dose: 80 mg Gabapentin (Gabapentin 100 Mg Capsule) 100 mg PO QAM [facility] Last Admin: 08/20/24 05:32 Dose: 100 mg Gabapentin (Gabapentin 100 Mg Capsule) 200 mg PO BEDTIME [facility] Last Admin: 08/19/24 20:10 Dose: 200 mg Glucagon (Glucagon 1 Mg/Ml Kit 1 Ml) 1 mg IM ONCE PRN; Protocol PRN Reason: Adult Acute Hypoglycemia Nursing Prot. Heparin Sodium (Porcine) (Heparin 5,000 Unit/Ml Inj 1 Ml) 0 unit IVP PRN PRN; Protocol PRN Reason: Heparin Weight Based Protocol -Subsequent Bolus Last Admin: 08/19/24 01:33 Dose: 2,700 unit Hydralazine HCl (Hydralazine 50 Mg Tablet) 100 mg PO TID [facility] Last Admin: 08/20/24 00:06 Dose: Not Given Sodium Chloride (Sodium Chloride 0.9%) 1,000 mls @ 0 mls/hr IV .Q0M PRN PRN Reason: hypotension or symptomatic Heparin Sodium/Sodium Chloride (Heparin Drip) 25,000 unit in 500 mls @ 0 mls/hr IV CONT [facility]; Protocol Last Titration: 08/20/24 06:17 Dose: 16.9 unit/kg/hr, 23 mls/hr Dextrose (D5w) 500 mls @ 0 mls/hr IV ONCE PRN; Protocol PRN Reason: Adult Acute Hypoglycemia Prot Dextrose (D10w) 125 mls @ 750 mls/hr IV PRN PRN; Protocol PRN Reason: Adult Acute Hypoglycemia Nursing Protocol Dextrose (D10w) 250 mls @ 1,000 mls/hr IV PRN PRN; Protocol PRN Reason: Adult Acute Hypoglycemia Nursing Protocol Sodium Chloride (Sodium Chloride 0.9%) 1,000 mls @ 0 mls/hr IV .Q0M PRN PRN Reason: hypotension or symptomatic Albumin Human (Albumin) 12.5 gm in 50 mls @ 60 mls/hr IV PRN PRN PRN Reason: Hypotension and/or symptomatic Insulin Human Lispro (Insulin Lispro 100 Unit/1 Ml) 0 unit SUBCUT WM&BEDTIME [facility]; Protocol Last Admin: 08/20/24 08:08 Dose: Not Given Loperamide HCl (Loperamide 2 Mg Capsule) 2 mg PO QAM [facility] Last Admin: 08/20/24 05:32 Dose: 2 mg Loperamide HCl (Loperamide 2 Mg Capsule) 6 mg PO QPM [facility] Last Admin: 08/19/24 20:10 Dose: 6 mg Losartan Potassium (Losartan 50 Mg Tablet) 50 mg PO DAILY [facility] Stop: 08/21/24 23:59 Last Admin: 08/19/24 08:38 Dose: 50 mg Mirtazapine (Mirtazapine 15 Mg Tablet) 7.5 mg PO DAILY [facility] Last Admin: 08/19/24 08:38 Dose: 7.5 mg Nifedipine (Nifedipine Er (24 Hr) 30 Mg Tablet) 30 mg PO DAILY [facility] Last Admin: 08/19/24 08:38 Dose: 30 mg Non-Formulary Medication (Megestrol) 40 mg PO BID [facility] Pantoprazole Sodium (Pantoprazole Dr 40 Mg Tablet) 40 mg PO DAILY [facility] Last Admin: 08/19/24 08:38 Dose: 40 mg Ropinirole HCl (Ropinirole 0.25 Mg Tablet) 0.5 mg PO QPM [facility] Last Admin: 08/19/24 17:39 Dose: 0.5 mg Sevelamer Carbonate (Sevelamer 800 Mg Tablet) 800 mg PO TIDWM [facility] Last Admin: 08/19/24 17:41 Dose: 800 mg Vancomycin HCl (Vancomycin 1,000 Mg Sdv (Pharmacy Mix)) 0 mg XX PRN PRN PRN Reason: Pharmacy to Dose Venlafaxine HCl (Venlafaxine Er (24hr) 150 Mg Capsule) 150 mg PO DAILY [facility] Last Admin: 08/19/24 08:37 Dose: 150 mg Vitals/I&O/Wt Last Vital Signs Temp 97.7 F 08/20/24 05:39 Pulse 61 08/20/24 05:21 Resp 21 H 08/20/24 05:00 BP 134/79 08/20/24 05:00 Pulse Ox 92 08/20/24 05:00 O2 Del Method Nasal Cannula 08/19/24 09:34 O2 Flow Rate 3 08/19/24 09:34 FiO2 2 08/17/24 08:30 08/19/24 08/20/24 08/20/24 22:59 06:59 14:59 Intake Total 1070.05 / 1746.35 165.733 / 1912.083 Balance 1070.05 / 1746.35 165.733 / 1912.083 Weight last 48 hrs Weight 153 lb 3.54 oz Weight 145 lb 8.081 oz Weight 147 lb 11.355 oz Physical Exam Narrative: GENERAL: The patient is alert and oriented times three. Not in any acute distress. HEENT: No significant pallor, icterus or lymphadenopathy.Oral cavity: There are no mucous membrane lesions. NECK: Trachea appears to be central. No masses noted. No JVD or thyromegaly appreciated. Tracheostomy scar appears to be well-healed RESPIRATORY: Chest is symmetrical. No intercostals muscle retraction or any accessory muscle activation. There is no chest wall tenderness. Breath sounds are heard bilaterally. Few scattered coarse crackles in the lung bases BREASTS: Deferred. HEART: The heart sounds are normal. No S3 or S4. Short systolic murmur in the lower sternal border. No diastolic murmurs. No pericardial rub ABDOMEN: No vessel pulsations or distention. No tenderness. No organomegaly appreciated. Bowel sounds are normally heard. : Deferred. RECTAL: Deferred. LYMPHATIC: No lymphadenopathy noted in the neck. EXTREMITIES: Trace edema with no cyanosis no clubbing. MUSCULOSKELETAL: No acute joint deformities or swelling SKIN: There are no significant rashes or ecchymosis NEUROPSYCHIATRIC: The patient is alert and oriented x3. Appears to be in a good mood. No tremors or rigidity noted. Minimal right upper extremity weakness Data 08/20/24 05:40 08/20/24 05:40 Other Labs: Laboratory Last Values WBC 8.26 10^3/uL (3.29-11.43) 08/19/24 04:57 RBC 2.79 10^6/uL (3.85-5.65) L 08/19/24 04:57 Hgb 8.20 g/dL (11.27-16.99) L 08/19/24 04:57 Hct 27.0 % (37-53) L 08/19/24 04:57 MCV 96.8 fl (82-101) 08/19/24 04:57 MCH 29.4 pg (27-33) 08/19/24 04:57 MCHC 30.4 g/dL (30-55) 08/19/24 04:57 RDW 15.3 % (12.1-15.1) H 08/19/24 04:57 Plt Count 166 10^3/cmm (157-399) 08/20/24 05:40 MPV 10.8 fL (7.4-10.4) H 08/19/24 04:57 Neut % (Auto) 71.4 % 08/19/24 04:57 Lymph % (Auto) 14.3 % 08/19/24 04:57 [place] % (Auto) 9.0 % 08/19/24 04:57 Eos % (Auto) 3.6 % 08/19/24 04:57 Baso % (Auto) 1.0 % 08/19/24 04:57 Neut # (Auto) 5.90 10^3/uL (1.8-7.7) 08/19/24 04:57 Lymph # (Auto) 1.2 10^3/uL (0.8-4.8) 08/19/24 04:57 [place] # (Auto) 0.7 10^3/uL (0.2-0.9) 08/19/24 04:57 Eos # (Auto) 0.3 10^3/uL (0.0-0.8) 08/19/24 04:57 Baso # (Auto) 0.1 10^3/uL (0.0-0.1) 08/19/24 04:57 Nucleated RBC % (auto) 0.7 % 08/19/24 04:57 Nucleated RBCs # 0.1 /100WBC 08/19/24 04:57 APTT 53.4 SECONDS (23.9-36.7) H 08/20/24 05:40 Specimen Type Arterial 08/16/24 13:03 Sample Site Radial, left 08/16/24 13:03 ABG pH 7.49 (7.35-7.45) H 08/16/24 13:03 ABG pCO2 31.3 mmHg (35-45) L 08/16/24 13:03 ABG pO2 41.4 mmHg (80.0-100.0) L 08/16/24 13:03 ABG HCO3 23.7 mmol/L (22-26) 08/16/24 13:03 ABG Base Excess 0.8 mmol/L (-2.0-2.0) 08/16/24 13:03 Otoniel Test Pos 08/16/24 13:03 Hematocrit 30.3 % (42-52) L 08/16/24 13:03 O2 Delivery Device Nc 08/16/24 13:03 O2 Liters/Min 4.0 % 08/16/24 13:03 [employer] Practitioner ID [place] 08/16/24 13:03 Sodium 134 mmol/L (136-145) L 08/20/24 05:40 Potassium 5.7 mmol/L (3.5-5.1) H 08/20/24 05:40 Chloride 99 mmol/L (98-107) 08/20/24 05:40 Carbon Dioxide 22 mmol/L (22-29) 08/20/24 05:40 Anion Gap 18.7 (5-19) 08/20/24 05:40 BUN 38 mg/dL (6-20) H 08/20/24 05:40 Creatinine 5.2 mg/dL (0.7-1.2) H 08/20/24 05:40 GFR Calculation 12.1 mL/min (90-130) L 08/20/24 05:40 Glucose 156 mg/dL (65-115) H 08/20/24 05:40 POC Glucose 120 mg/dL (70-110) H 08/20/24 08:01 Calculated Osmolality 290 mOsm/kg (285-295) 08/20/24 05:40 Lactic Acid 2.6 mmol/L (0.5-2.2) H 08/16/24 12:25 Lactic Acid (Sepsis) 1.5 mmol/L (0.5-2.2) 08/16/24 15:43 Calcium 10.2 mg/dL (8.5-10.5) 08/20/24 05:40 Phosphorus 2.6 mg/dL (2.5-4.5) 08/20/24 05:40 Magnesium 2.2 mg/dL (1.7-2.3) 08/20/24 05:40 Total Bilirubin 0.4 mg/dL (0.15-1.2) 08/20/24 05:40 AST 12 U/L (0-40) 08/20/24 05:40 ALT < 5 U/L (0-41) 08/20/24 05:40 Alkaline Phosphatase 51 U/L (40-130) 08/20/24 05:40 Troponin T Baseline 385 ng/L (0-15) H* 08/16/24 12:25 Troponin T 120 Minute 379.0 ng/L (0-15) H 08/16/24 14:21 Delta Troponin T -6.0 ABS# (0-10) L 08/16/24 14:21 Troponin T Hi Sens 6Hr 360.1 ng/L (0-15) H 08/16/24 18:26 Troponin T Hi Sens 6Hr Delta -24.9 ng/L (0-12) L 08/16/24 18:26 NT-Pro-B Natriuret Pep > 94885 pg/mL (0-125) H 08/16/24 12:25 Total Protein 6.4 g/dL (6.6-8.7) L 08/20/24 05:40 Albumin 3.1 g/dL (3.5-5.2) L 08/20/24 05:40 Globulin 3.3 g/dL (1.3-4.6) 08/20/24 05:40 PTH Intact 65.4 pg/mL (15-65) H 08/19/24 04:57 Calcium (PTH Intact) 9.2 mg/dL (8.5-10.5) 08/19/24 04:57 Nasal MRSA (PCR) Mrsa detected (Negative) A 08/16/24 22:53 Vancomycin Trough 22.1 ug/mL (10-15) H 08/17/24 14:41 Random Vancomycin 20.8 ug/mL (20.0-40.0) 08/19/24 04:57 Hep Bs Antigen Non-reactive (Nonreactive) 08/16/24 12:25 Hep Bs Antibody 141.2 (11.5-1000) 08/16/24 12:25 Influenza A (PCR) Negative (Negative) 08/16/24 15:08 Influenza Type B (PCR) Negative (Negative) 08/16/24 15:08 RSV (PCR) Negative (Negative) 08/16/24 15:08 SARS-CoV-2 (PCR) Negative (Negative) 08/16/24 15:08 Micro: Microbiology 08/16/24 13:32 Blood Culture - Preliminary Blood Staphylococcus epidermidis Staphylococcus hominis A&P Assessment and plan (1) Elevated troponin: Patient seems to have elevated troponin T without any significant delta. This could be multifactorial. The end-stage renal disease, pulmonary emboli, congestive heart failure, etc. are contributing factors In view of the severe LV systolic dysfunction, possibility of underlying coronary ischemia causing this cannot be excluded. Patient apparently had a Myocardial perfusion imaging in November of last year. He was found to have areas of fixed defect with small areas of reversible defect, suggesting myocardial scarring with possible preinfarction ischemia (2) Atherosclerosis of coronary artery of kaibab heart without angina pectoris: This patient apparently had a four-vessel coronary bypass surgery in 2018. Possibility of progression of disease in the kaibab vessels/grafts are considerations. This may need to be further evaluated. In view of the significant drop in the LV ejection fraction compared to a year ago, it may be appropriate to do a cardiac catheterization to evaluate the coronary status as well as the graft status and then decide on further management. (3) Ischemic congestive cardiomyopathy: Patient was found to have LV ejection fraction of 31% based on the current echocardiogram. The previous LV ejection fraction was 55 to 60% a year ago. He is tolerating the losartan well. May be started on Entresto tomorrow Also discussed the patient about prophylactic external defibrillator-patient is agreeable The LifeVest is ordered (4) Pulmonary embolism: Patient has no previous history for pulmonary embolism. Source of embolization is not known at this point. (5) End stage kidney disease: Patient is on hemodialysis. This may be continued (6) Chronic hypertension: The blood pressure has been fluctuating. Currently the blood pressure is in the normal range Plan Other problems are History of CVA, no residual defects Type 2 diabetes, fairly under control Dyslipidemia Smoking abuse Possible pneumonia, clinically improving, afebrile Still awaiting the medical records from [facility], will try it again today. Based on the angiogram findings, further management decisions will be made. May continue on the current medications for the time being. Since I am not going to be here for the rest of the week, one of my colleagues will be performing the procedure. This was discussed with the patient which she understood well. PDMP PDMP Reviewed: Not Reviewed Attestations Medical Necessity Statement*: Patient requires continued hospital stay for close monitoring and further management Coding Level of Care Code 33435 Diagnoses Elevated troponin R79.89 Atherosclerosis of kaibab coronary artery of kaibab heart without angina pectoris I25.10 Coronary Disease-Associated Artery/Lesion type: kaibab artery Ischemic congestive cardiomyopathy I25.5; I42.0 Multiple subsegmental pulmonary emboli without acute cor pulmonale I26.94 Pulmonary embolism type: multiple subsegmental (without acute cor pulmonale) End stage kidney disease N18.6 Chronic hypertension I10
[2024-08-20] MEDS: cloNIDine 0.1 mg Tablet 0.2 MG PO ×3 (08:52→20:33)
[2024-08-20] MEDS: NIFEdipine ER (24 hr) 30 mg Tablet PO (08:53)
[2024-08-20] MEDS: BuSPIRONE 10 mg Tablet 5 MG PO ×3 (08:53→20:32)
[2024-08-20] MEDS: pantoprazole DR 40 mg Tablet PO (08:53)
[2024-08-20] MEDS: carvedilol 25 mg Tablet 50 MG PO ×2 (08:53→20:33)
[2024-08-20] MEDS: mirtazapine 15 mg Tablet 7.5 MG PO (08:54)
[2024-08-20] MEDS: sevelamer 800 mg Tablet PO ×2 (08:54→19:15)
[2024-08-20] MEDS: FUROsemide 40 mg Tablet 80 MG PO ×2 (08:54→19:15)
[2024-08-20] MEDS: venlafaxine ER (24HR) 150 mg Capsule PO (08:55)
[2024-08-20] MEDS: calcitriol 0.25 mcg Capsule 0.75 MCG PO (08:55)
[2024-08-20] MEDS: losartan 50 mg Tablet PO (09:47)
[2024-08-20] MEDS: hyDRALAzine 50 mg Tablet 100 MG PO ×3 (09:47→20:32)
[2024-08-20] MEDS: aspirin 325 mg Tablet PO (12:37)
[2024-08-20] MEDS: sodium chloride 0.9% 1,000 ML 30 ML IV (12:46)
[2024-08-20 12:50] LABS: Glucose Point of Care 185 mg/dL (70-110)
[2024-08-20] MEDS: insulin lispro 100 unit/1 mL SUBCUT ×2 (13:10→20:53)
--- NOTE | 2024-08-20 13:19 | USR_ITS ---
PROCEDURE INFORMATION: Exam: US Duplex Lower Extremity Veins, Bilateral Exam date and time: 08/20/2024 5:14 PM Age: 43 years old Clinical indication: Condition or disease; Other: Pe-r/o dvt; Additional info: Admitted for pe. Dvt rule out. TECHNIQUE: Imaging protocol: Real-time duplex ultrasound of the bilateral extremities with 2-D deal scale, color Doppler flow and spectral waveform analysis including responses to compression and other maneuvers (when performed) with image documentation. Complete exam focused on the lower extremity veins. COMPARISON: US CV venous duplex [facility] [id number] 09/15/2023 1:27 AM FINDINGS: Right deep veins: Unremarkable. The common femoral, femoral, proximal profunda femoral and popliteal veins are patent without thrombus. Normal Doppler waveforms. Normal compressibility and/or augmentation response. Left deep veins: Unremarkable. The common femoral, femoral, proximal profunda femoral and popliteal veins are patent without thrombus. Normal Doppler waveforms. Normal compressibility and/or augmentation response. Superficial veins: Greater saphenous veins at the saphenofemoral junctions are patent bilaterally without thrombus. Soft tissues: Unremarkable. US/CV venous duplex [facility] [id number] IMPRESSION: No evidence of deep vein thrombosis.
[2024-08-20] MEDS: lactulose oral liq 20 gm/30 mL UDC 10 GM PO (14:10)
--- NOTE | 2024-08-20 14:55 | PC.SOCIAL ---
IMM Updated Updated pt on IMM. No questions voiced. Provided pt a copy. Initialed, dated, & timed copy in chart.
[2024-08-20 16:52] LABS: Glucose Point of Care 118 mg/dL (70-110)
--- NOTE | 2024-08-20 18:27 | PM.PN ---
Subjective Subjective: No new complaints today. Continues to be on a heparin drip. Medications: Reviewed: Yes Medication Review Details: Current Medications Amlodipine Besylate (Amlodipine 5 Mg Tablet) 5 mg PO QPM [facility] Last Admin: 08/19/24 17:39 Dose: 5 mg Buspirone HCl (Buspirone 10 Mg Tablet) 5 mg PO TID [facility] Last Admin: 08/19/24 20:10 Dose: 5 mg Calcitriol (Calcitriol 0.25 Mcg Capsule) 0.75 mcg PO DAILY [facility] Last Admin: 08/19/24 08:38 Dose: 0.75 mcg Carvedilol (Carvedilol 25 Mg Tablet) 50 mg PO TID [facility] Last Admin: 08/19/24 20:10 Dose: 50 mg Cefepime HCl (Cefepime 1,000 Mg Sdv) 1,000 mg IVP Q12H [facility]; Protocol Last Admin: 08/20/24 03:09 Dose: 1,000 mg Clonidine HCl (Clonidine 0.1 Mg Tablet) 0.2 mg PO TID [facility] Furosemide (Furosemide 40 Mg Tablet) 80 mg PO BID [facility] Last Admin: 08/19/24 17:39 Dose: 80 mg Gabapentin (Gabapentin 100 Mg Capsule) 100 mg PO QAM [facility] Last Admin: 08/20/24 05:32 Dose: 100 mg Gabapentin (Gabapentin 100 Mg Capsule) 200 mg PO BEDTIME [facility] Last Admin: 08/19/24 20:10 Dose: 200 mg Glucagon (Glucagon 1 Mg/Ml Kit 1 Ml) 1 mg IM ONCE PRN; Protocol PRN Reason: Adult Acute Hypoglycemia Nursing Prot. Heparin Sodium (Porcine) (Heparin 5,000 Unit/Ml Inj 1 Ml) 0 unit IVP PRN PRN; Protocol PRN Reason: Heparin Weight Based Protocol -Subsequent Bolus Last Admin: 08/19/24 01:33 Dose: 2,700 unit Hydralazine HCl (Hydralazine 50 Mg Tablet) 100 mg PO TID [facility] Last Admin: 08/20/24 00:06 Dose: Not Given Sodium Chloride (Sodium Chloride 0.9%) 1,000 mls @ 0 mls/hr IV .Q0M PRN PRN Reason: hypotension or symptomatic Heparin Sodium/Sodium Chloride (Heparin Drip) 25,000 unit in 500 mls @ 0 mls/hr IV CONT [facility]; Protocol Last Titration: 08/20/24 06:17 Dose: 16.9 unit/kg/hr, 23 mls/hr Dextrose (D5w) 500 mls @ 0 mls/hr IV ONCE PRN; Protocol PRN Reason: Adult Acute Hypoglycemia Prot Dextrose (D10w) 125 mls @ 750 mls/hr IV PRN PRN; Protocol PRN Reason: Adult Acute Hypoglycemia Nursing Protocol Dextrose (D10w) 250 mls @ 1,000 mls/hr IV PRN PRN; Protocol PRN Reason: Adult Acute Hypoglycemia Nursing Protocol Sodium Chloride (Sodium Chloride 0.9%) 1,000 mls @ 0 mls/hr IV .Q0M PRN PRN Reason: hypotension or symptomatic Albumin Human (Albumin) 12.5 gm in 50 mls @ 60 mls/hr IV PRN PRN PRN Reason: Hypotension and/or symptomatic Insulin Human Lispro (Insulin Lispro 100 Unit/1 Ml) 0 unit SUBCUT WM&BEDTIME [facility]; Protocol Last Admin: 08/20/24 08:08 Dose: Not Given Loperamide HCl (Loperamide 2 Mg Capsule) 2 mg PO QAM [facility] Last Admin: 08/20/24 05:32 Dose: 2 mg Loperamide HCl (Loperamide 2 Mg Capsule) 6 mg PO QPM [facility] Last Admin: 08/19/24 20:10 Dose: 6 mg Losartan Potassium (Losartan 50 Mg Tablet) 50 mg PO DAILY [facility] Stop: 08/21/24 23:59 Last Admin: 08/19/24 08:38 Dose: 50 mg Mirtazapine (Mirtazapine 15 Mg Tablet) 7.5 mg PO DAILY [facility] Last Admin: 08/19/24 08:38 Dose: 7.5 mg Nifedipine (Nifedipine Er (24 Hr) 30 Mg Tablet) 30 mg PO DAILY [facility] Last Admin: 08/19/24 08:38 Dose: 30 mg Non-Formulary Medication (Megestrol) 40 mg PO BID [facility] Pantoprazole Sodium (Pantoprazole Dr 40 Mg Tablet) 40 mg PO DAILY [facility] Last Admin: 08/19/24 08:38 Dose: 40 mg Ropinirole HCl (Ropinirole 0.25 Mg Tablet) 0.5 mg PO QPM [facility] Last Admin: 08/19/24 17:39 Dose: 0.5 mg Sevelamer Carbonate (Sevelamer 800 Mg Tablet) 800 mg PO TIDWM [facility] Last Admin: 08/19/24 17:41 Dose: 800 mg Vancomycin HCl (Vancomycin 1,000 Mg Sdv (Pharmacy Mix)) 0 mg XX PRN PRN PRN Reason: Pharmacy to Dose Venlafaxine HCl (Venlafaxine Er (24hr) 150 Mg Capsule) 150 mg PO DAILY [facility] Last Admin: 08/19/24 08:37 Dose: 150 mg Vitals/I&O/Wt Last Vital Signs Temp 97.5 F L 08/20/24 13:00 Pulse 68 08/20/24 17:00 Resp 22 H 08/20/24 17:00 BP 134/82 08/20/24 17:00 Pulse Ox 96 08/20/24 17:00 O2 Del Method Room Air 08/20/24 17:00 O2 Flow Rate 1 08/20/24 10:00 FiO2 2 08/17/24 08:30 08/20/24 08/20/24 08/20/24 06:59 14:59 22:59 Intake Total 165.733 / 1912.083 656.4 / 656.4 Output Total 275 / 275 Balance 165.733 / 1912.083 381.4 / 381.4 Weight last 48 hrs Weight 69.5 kg Weight 66 kg Physical Exam Narrative: General: No acute distress, AO x3 HEENT: PERRLA, pupils bilaterally equal and reactive, pallors not present Chest: Normal vesicular breath sounds, no added sounds, equal good air entry bilaterally CVS: S1-S2 regular, no murmurs, no tachycardia, no gallops, no rubs Abdomen: Soft, nontender, no organomegaly, bowel sounds present Neuro: No focal deficits, overall deconditioned , h/o prior strole affecting right side of hi sbody. Data 08/20/24 05:40 08/20/24 05:40 Micro: Microbiology 08/16/24 13:32 Blood Culture - Preliminary Blood Staphylococcus epidermidis Staphylococcus hominis A&P Assessment and plan (1) Acute hypoxemic respiratory failure: (2) Elevated troponin: (3) End stage kidney disease: (4) Pulmonary edema: (5) Pulmonary embolism: (6) Community acquired pneumonia: (7) Depression: Plan # Acute hypoxic respiratory failure -In the setting of pneumonia, pulmonary edema, PE -Patient currently off Bipap -He is now on 2L supplemental oxygen - Wean oxygen as tolerated #Community-acquired pneumonia - Continue vancomycin and cefepime -MRSA is positive -Urine Legionella antigen- pending #Acute pulmonary embolism - CT scan showed acute segmental and subsegmental pulmonary emboli described above worse in the right upper lobe. - No evidence of right heart strain, patient does have elevated troponin - Heparin infusion started, can switch to Eliquis if no cardiac intervention planned # Elevated troponin - Thought to be due to type II demand ischemia -TTE showed a reduced EF- 31%, unclear if this is new -Cardiology following, follow recommendations # Pulmonary edema # Heart failure with reduced EF # Ischemic cardiomyopathy-patient is status post CABG - Continue Lasix - Dialysis for volume management # ESRD - Nephrology consulted for dialysis needs # Type 2 diabetes - Glucose checks, sliding scale insulin # History of hypertension -Patient's BP elevated - Continue antihypertensives # History of depression - Continue antidepressants August 19, 2024 Chart reviewed. Continue heparin drip for pulmonary embolism. Aim to transition to Eliquis over the next 24 to 48 hours once angiogram has been completed. With new noted drop in EF, planned ischemic evaluation with corornary angiogram tomorrow. Medical management optimized by cardiology. Review of prior stress test from October 2023 had revealed patchy areas of decreased tracer uptake in the anteroseptal mild inferior and inferolateral regions with some ischemia in the mid inferior and inferior basal regions. Perhaps suggestive of ischemia in the distribution of the RCA. LVEF at that time was 40% estimated on the stress test. Echocardiogram at that time estimated on her 2D echo was at 55 to 60%. Additionally obtain fecal occult blood testing prior to placing patient on Eliquis given chronic anemia. Currently hemoglobin is at 8.2, per review of previous numbers this has been as low as 6.9 previously. Suspect this is related to CKD however GI bleeding would need to be excluded prior to transitioning to Eliquis. Is currently afebrile, hemodynamically stable. Blood pressure is well-maintained. Appreciate nephrology recommendations for dialysis. Transfer to [facility] 08/20/2024 Continue heparin anticoagulation for pulmonary embolism. Obtain lower extremity duplex. 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 Also states that at baseline he is not very mobile. He has been deconditioned as a result of shoulder fractures in the past. Currently he utilizes a wheelchair to get short distances within the home. May potentially have a DVT leading to the PE. May have underlying hypercoagulable state given history of CABG at a young age, and now also with a PE. Will refer to hematology as outpatient. Patient is planned for left heart cath in a.m per cardiology. N.p.o. postmidnight for the same. Aim to transition to [facility] after the left heart cath and results of FOBT. Additionally results of his endoscopic evaluation from [facility] has been requested. Patient has been receiving loperamide since admission which we will discontinue. Will start lactulose. States that his last bowel movement was on (today is Tuesday). Hyperkalemia noted today, completing dialysis today. Discontinue cefepime as he has completed a 5-day course for pneumonia. Discontinue vancomycin after a 7-day course (day 5 today). favor Blood cx + for staph epi and staph hominis to be contaminants from 08/16 (one of 4 bottles) PDMP PDMP Reviewed: Not Reviewed Attestations Medical Necessity Statement*: LHC, assessment for GI bleed, transition a/c to [facility] Coding Level of Care Code Acute Code for Chg Fwd Diagnoses Acute hypoxemic respiratory failure J96.01 Elevated troponin R79.89 End stage kidney disease N18.6 Pulmonary edema J81.1 Multiple subsegmental pulmonary emboli without acute cor pulmonale I26.94 Pulmonary embolism type: multiple subsegmental (without acute cor pulmonale) Community acquired pneumonia J18.9 Depression F32.A
[2024-08-20 18:38] LABS: Partial Thromboplastin Time 57.1 SECONDS (23.9-36.7)
--- NOTE | 2024-08-20 18:42 | PC.NURSE ---
Shift SUmmary: Uneventful shift. Received dialysis today, 2L removed. NPO at midnight, Angiogram at 6am.
[2024-08-20] MEDS: ropinirole 0.25 mg Tablet 0.5 MG PO (19:15)
[2024-08-20] MEDS: amlodipine 5 mg Tablet PO (19:15)
[2024-08-20] MEDS: gabapentin 100 mg Capsule 200 MG PO (20:34)
[2024-08-20] MEDS: vancomycin 500 MG in sodium chloride 0.9% (plus) 100 ML 200 MG IV (20:35)
[2024-08-20 20:52] LABS: Glucose Point of Care 242 mg/dL (70-110)
[2024-08-21] VITALS (50 sets, daily range): BP systolic 132–187; BP diastolic 75–106; PULSE 68–83; RESP 10–29; TEMP 36.6–37.3; O2SAT 90–100
[2024-08-21 04:39] LABS: Basophils # 0.1 10^3/uL (0.0-0.1); Basophils % 0.8 %; Eosinophils # 0.3 10^3/uL (0.0-0.8); Eosinophils % 2.4 %; Hematocrit 31.5 % (37-53); Lymphocytes # 0.9 10^3/uL (0.8-4.8); Lymphocytes % 6.1 %; Mean Corpuscular HGB Conc 30.8 g/dL (30-55); Mean Corpuscular Hemoglobin 29.8 pg (27-33); Mean Corpuscular Volume 96.6 fl (82-101); Mean Platelet Volume 10.5 fL (7.4-10.4); Monocytes # 0.8 10^3/uL (0.2-0.9); Monocytes % 5.8 %; Neutrophils # 11.67 10^3/uL (1.8-7.7); Neutrophils % 83.7 %; Nucleated Red Blood Cells # 0.1 /100WBC; Nucleated Red Blood Cells % 0.4 %; Platelet Count 207 10^3/cmm (157-399); Red Blood Count 3.26 10^6/uL (3.85-5.65); Red Cell Distribution Width 17.6 % (12.1-15.1); White Blood Count 13.95 10^3/uL (3.29-11.43)
[2024-08-21 04:47] LABS: Partial Thromboplastin Time 56.1 SECONDS (23.9-36.7)
[2024-08-21 04:57] LABS: Alanine Aminotransferase < 5 U/L (0-41); Albumin Level 3.5 g/dL (3.5-5.2); Alkaline Phosphatase 50 U/L (40-130); Anion Gap 19.2 (5-19); Aspartate Amino Transferase 13 U/L (0-40); Blood Urea Nitrogen 25 mg/dL (6-20); Calcium 10.1 mg/dL (8.5-10.5); Carbon Dioxide 24 mmol/L (22-29); Chloride 99 mmol/L (98-107); Globulin 3.5 g/dL (1.3-4.6); Glomerular Filtration Rate 16.9 mL/min (90-130); Glucose 121 mg/dL (65-115); Osmolality Calculated 290 mOsm/kg (285-295); Phosphorus 2.3 mg/dL (2.5-4.5); Potassium 5.2 mmol/L (3.5-5.1); Sodium 137 mmol/L (136-145); Total Bilirubin 0.5 mg/dL (0.15-1.2)
--- NOTE | 2024-08-21 05:03 | PC.NURSE ---
Dr. Green requested heparin drip to be turned off at 5 am.
[2024-08-21] MEDS: diphenhydrAMINE 50 mg Capsule PO (05:05)
--- NOTE | 2024-08-21 06:14 | W.PM.OPSUD ---
Surgery/Procedure H&P Update DATE OF PROCEDURE: August 21, 2024 DATE H&P PERFORMED: 08/16/24 H&P UPDATE INFORMATION: I have reviewed H&P completed within last 30 days, I have examined patient prior to procedure and No changes to prior documentation PREOP DIAGNOSIS: Worsening of heart failure, LV dysfunction PRIMARY INDICATION FOR PROCEDURE: History of coronary artery bypass Drop in ejection fraction severely depressed 30% which is new Elevated cardiac markers PLANNED PROCEDURE: Operation Date: 08/21/24 06:00 Proposed Procedures p Cardiac Catheterization(Left) - Tia Green MD PATIENT REASSESSED PRIOR TO SEDATION, WITH NO CHANGE NOTED: Yes PHYSICAL EXAM: alert, oriented x 3, clear to auscultation bilaterally, regular rate & rhythm and operative site marked AIRWAY EVAL/ANESTHESIA PLAN: ASA II, Risks, benefits & alternatives of sedation and/or procedure discussed and Patient agrees to continue as planned ADDITIONAL INFORMATION: All risk-benefit and alternative for the procedure has been explained, patient understand 2% risk of stroke major bleed. Patient understand 5 to 6% risk of minor bleeding oozing infection hematoma contrast induced nephropathy urgent emergent vascular and bypass surgery. Patient receptive at and would like to proceed with that.
[2024-08-21 07:23] LABS: Glucose Point of Care 135 mg/dL (70-110)
--- NOTE | 2024-08-21 08:00 | P.PCN_ITS ---
Procedure Note: Date of procedure: 08/21/24 Pre-procedure diagnosis: chf, LV dysfunction new onset Post-procedure diagnosis: same Procedure: Left heart catheterization was performed. Patient was noted to have normal left main LAD is chronically occluded in the midsegment Diagonal branch is moderate size and caliber long vessel it has high-grade proximal 90% calcified stenosis. Venous graft to obtuse marginal which is a skip graft to diagonal proximal limb is occluded, it would be the culprit vessel given the nature of LV dysfunction RCA has luminal irregularity with mild to moderate mid RCA lesion 50% distal RCA subtotally occluded small caliber distal vessel not amenable to stenting it was not culprit vessel. SVG to obtuse marginal 1 is chronically occluded SVG to diagonal and skip to obtuse marginal proximal limb is chronically occluded the limb in between diagonal and obtuse marginal is patent Recommendation: PCI to the proximal diagonal branch: Balloon angioplasty using noncompliant Kelley score was used to predilate the lesion. Lesion was then treated with [place] 3.0 x 15 mm drug-eluting stent postdilated with a three 5 x 8 noncompliant balloon. Good angiographic result with JAZMYNE-3 flow was noted at the end the case without any complication. Plan: Right common femoral was sealed with Angio-Seal Bedrest for 4 hours Dual antiplatelet therapy aspirin 81 mg and Plavix 75 mg from tomorrow today patient is loaded with 600 mg of Plavix and 325 mg of aspirin Continue rest of medications. Patient has dialysis today he can proceed with dialysis around noon. Coding Level of Care Code Acute Code for Edouardg Fwd
[2024-08-21] MEDS: mirtazapine 15 mg Tablet 7.5 MG PO (08:51)
[2024-08-21] MEDS: cloNIDine 0.1 mg Tablet 0.2 MG PO ×3 (08:52→20:36)
[2024-08-21] MEDS: NIFEdipine ER (24 hr) 30 mg Tablet PO (08:52)
[2024-08-21] MEDS: calcitriol 0.25 mcg Capsule 0.75 MCG PO (08:53)
[2024-08-21] MEDS: clopidogrel 75 mg Tablet PO (08:53)
[2024-08-21] MEDS: sevelamer 800 mg Tablet PO ×3 (08:53→17:58)
[2024-08-21] MEDS: pantoprazole DR 40 mg Tablet PO (08:54)
[2024-08-21] MEDS: FUROsemide 40 mg Tablet 80 MG PO ×2 (08:54→17:58)
[2024-08-21] MEDS: venlafaxine ER (24HR) 150 mg Capsule PO (08:54)
[2024-08-21] MEDS: carvedilol 25 mg Tablet 50 MG PO ×3 (08:54→20:35)
[2024-08-21] MEDS: BuSPIRONE 10 mg Tablet 5 MG PO ×3 (08:54→20:35)
[2024-08-21 09:07] LABS: Glucose Point of Care 121 mg/dL (70-110)
--- NOTE | 2024-08-21 09:59 | P.PN_ITS ---
Subjective 2 Subjective: lethargic s/p cardiac cath and stent this morning Medications: Reviewed: Yes Medication Review Details: Current Medications Acetaminophen (Acetaminophen 325 Mg Tablet) 650 mg PO Q6H PRN PRN Reason: MILD PAIN Hydrocodone Bitart/Acetaminophen (Hydrocodone-Acetaminophen 5-325 Mg Tablet) 1 tab PO Q4H PRN PRN Reason: PAIN Al Hydrox/Mg Hydrox/Simethicone (Mpfi-Vhy-Kvguqmwft-Alexander 30 Ml Udc) 30 ml PO Q15M PRN PRN Reason: INDIGESTION Alprazolam (Alprazolam 0.5 Mg Tablet) 0.25 mg PO TID PRN PRN Reason: ANXIETY Amlodipine Besylate (Amlodipine 5 Mg Tablet) 5 mg PO QPM [facility] Last Admin: 08/20/24 19:15 Dose: 5 mg Atropine Sulfate (Atropine 1 Mg/Ml Sdv 1 Ml) 0.5 mg IVP PRN PRN PRN Reason: Symptomatic bradycardia Buspirone HCl (Buspirone 10 Mg Tablet) 5 mg PO TID [facility] Last Admin: 08/21/24 08:54 Dose: 5 mg Calcitriol (Calcitriol 0.25 Mcg Capsule) 0.75 mcg PO DAILY [facility] Last Admin: 08/21/24 08:53 Dose: 0.75 mcg Carvedilol (Carvedilol 25 Mg Tablet) 50 mg PO TID [facility] Last Admin: 08/21/24 08:54 Dose: 50 mg Clonidine HCl (Clonidine 0.1 Mg Tablet) 0.2 mg PO TID [facility] Last Admin: 08/21/24 08:52 Dose: 0.2 mg Clopidogrel Bisulfate (Clopidogrel 75 Mg Tablet) 75 mg PO DAILY [facility] Last Admin: 08/21/24 08:53 Dose: 75 mg Fentanyl (Fentanyl 50 Mcg/Ml Inj 2ml) 50 mcg IVP PRN PRN PRN Reason: PAIN Furosemide (Furosemide 40 Mg Tablet) 80 mg PO BID [facility] Last Admin: 08/21/24 08:54 Dose: 80 mg Gabapentin (Gabapentin 100 Mg Capsule) 100 mg PO QAM [facility] Last Admin: 08/21/24 05:04 Dose: Not Given Gabapentin (Gabapentin 100 Mg Capsule) 200 mg PO BEDTIME [facility] Last Admin: 08/20/24 20:34 Dose: 200 mg Glucagon (Glucagon 1 Mg/Ml Kit 1 Ml) 1 mg IM ONCE PRN; Protocol PRN Reason: Adult Acute Hypoglycemia Nursing Prot. Heparin Sodium (Porcine) (Heparin 5,000 Unit/Ml Inj 1 Ml) 0 unit IVP PRN PRN; Protocol PRN Reason: Heparin Weight Based Protocol -Subsequent Bolus Last Admin: 08/19/24 01:33 Dose: 2,700 unit Hydralazine HCl (Hydralazine 50 Mg Tablet) 100 mg PO TID [facility] Last Admin: 08/20/24 20:32 Dose: 100 mg Sodium Chloride (Sodium Chloride 0.9%) 1,000 mls @ 0 mls/hr IV .Q0M PRN PRN Reason: hypotension or symptomatic Heparin Sodium/Sodium Chloride (Heparin Drip) 25,000 unit in 500 mls @ 0 mls/hr IV CONT [facility]; Protocol Last Titration: 08/21/24 05:02 Dose: Infused Dextrose (D5w) 500 mls @ 0 mls/hr IV ONCE PRN; Protocol PRN Reason: Adult Acute Hypoglycemia Prot Dextrose (D10w) 125 mls @ 750 mls/hr IV PRN PRN; Protocol PRN Reason: Adult Acute Hypoglycemia Nursing Protocol Dextrose (D10w) 250 mls @ 1,000 mls/hr IV PRN PRN; Protocol PRN Reason: Adult Acute Hypoglycemia Nursing Protocol Sodium Chloride (Sodium Chloride 0.9%) 1,000 mls @ 0 mls/hr IV .Q0M PRN PRN Reason: hypotension or symptomatic Albumin Human (Albumin) 12.5 gm in 50 mls @ 60 mls/hr IV PRN PRN PRN Reason: Hypotension and/or symptomatic Insulin Human Lispro (Insulin Lispro 100 Unit/1 Ml) 0 unit SUBCUT WM&BEDTIME [facility]; Protocol Last Admin: 08/21/24 09:46 Dose: Not Given Losartan Potassium (Losartan 50 Mg Tablet) 50 mg PO DAILY [facility] Stop: 08/21/24 23:59 Last Admin: 08/20/24 09:47 Dose: 50 mg Magnesium Hydroxide (Magnesium Hydroxide 30 Ml Udc) 30 ml PO DAILY PRN PRN Reason: CONSTIPATION Mirtazapine (Mirtazapine 15 Mg Tablet) 7.5 mg PO DAILY [facility] Last Admin: 08/21/24 08:51 Dose: 7.5 mg Naloxone HCl (Naloxone 0.4 Mg/Ml Sdv) 0.1 mg IVP Q2M PRN PRN Reason: RESPIRATORY RATE < 8/MIN Nifedipine (Nifedipine Er (24 Hr) 30 Mg Tablet) 30 mg PO DAILY [facility] Last Admin: 08/21/24 08:52 Dose: 30 mg Nitroglycerin (Nitroglycerin 0.4 Mg Sublingual Tablet) 0.4 mg SUBLINGUAL Q5M PRN PRN Reason: CHEST PAIN Non-Formulary Medication (Megestrol) 40 mg PO BID [facility] Pantoprazole Sodium (Pantoprazole Dr 40 Mg Tablet) 40 mg PO DAILY [facility] Last Admin: 08/21/24 08:54 Dose: 40 mg Ropinirole HCl (Ropinirole 0.25 Mg Tablet) 0.5 mg PO QPM [facility] Last Admin: 08/20/24 19:15 Dose: 0.5 mg Sevelamer Carbonate (Sevelamer 800 Mg Tablet) 800 mg PO TIDWM [facility] Last Admin: 08/21/24 08:53 Dose: 800 mg Temazepam (Temazepam 15 Mg Capsule) 15 mg PO BEDTIME PRN PRN Reason: INSOMNIA Vancomycin HCl (Vancomycin 1,000 Mg Sdv (Pharmacy Mix)) 0 mg XX PRN PRN PRN Reason: Pharmacy to Dose Venlafaxine HCl (Venlafaxine Er (24hr) 150 Mg Capsule) 150 mg PO DAILY [facility] Last Admin: 08/21/24 08:54 Dose: 150 mg Vitals/I&O/Wt Last Vital Signs Temp 98.3 F 08/21/24 03:16 Pulse 70 08/21/24 09:23 Resp 15 08/21/24 05:00 BP 163/94 08/21/24 08:52 Pulse Ox 97 08/21/24 09:23 O2 Del Method Nasal Cannula 08/21/24 09:23 O2 Flow Rate 1 08/21/24 09:23 FiO2 2 08/17/24 08:30 08/20/24 08/21/24 08/21/24 22:59 06:59 14:59 Intake Total 843.367 / 1499.767 184.833 / 1684.600 Output Total 2500 / 2775 Balance -1656.633 / -1275.233 184.833 / -1090.400 Weight last 48 hrs Weight 66.361 kg Weight 69.5 kg Weight 69.5 kg Physical Exam 2 Narrative: vital signs noted General - lethargic in bed, + nc02 HEENT-normocephalic, atraumatic, PERRL Lungs-dull bases bilaterally, no crackles, no wheezes Cardiovascular-S1, S2, regular rate and rhythm Abdomen-soft, nontender, normal bowel sounds Extremities-no pedal edema Neuro-lethargic but moving Dialysis access right IJ permacath. Data 08/21/24 04:18 08/21/24 04:18 Micro: Microbiology 08/21/24 04:15 Occult Blood (FIT) - Final Stool Routine Collection A&P Assessment and plan (1) End stage kidney disease: Plan 1. End-stage renal disease: On TTS schedule, He is off schedule here. as lethargic now. and s/p cardiac cath and stent this morning. we will wait for dialysis till tomorrow 2. Hypertension: lower EDW as tolerated on HDBlood pressure is well-controlled. 3. Acute on chronic respiratory failure: Multifactorial in the setting of pneumonia and pulmonary embolism as well as pulmonary edema 4. Anemia: Hemoglobin antwan from 8.2 to 9.7 , GIANCARLO with HD. However will limit the dose of Epogen given pulmonary embolism and hypercoagulable risk with erythropoietin stimulating agents. 5. Appreciate cardiology as EF is decreased -s/p PCI to the proximal diagonal branch: Balloon angioplasty using noncompliant Kelley score was used to predilate the lesion. Lesion was then treated with [place] 3.0 x 15 mm drug-eluting stent postdilated with a three 5 x 8 noncompliant balloon. Good angiographic result with JAZMYNE-3 flow was noted at the end the case without any complication. use DAPT 6. stop aluminum based meds w/ ESRD- can cause adynamic bone disease Patient evaluated using audiovisual cart. The patient consents to dialysis. PDMP PDMP Reviewed: Not Reviewed Attestations 2 Medical Necessity Statement*: s/p cardiac stent, ESRD, HFrEF, HTN Time Spent in Patient Care: 16 - 35 minutes (>than 50% of time sp ent in counselling and/or direct pt care on unit) . Coding Level of Care Code Acute Code for Chg Fwd Diagnoses End stage kidney disease N18.6
[2024-08-21] MEDS: hyDRALAzine 50 mg Tablet 100 MG PO ×3 (10:06→20:37)
[2024-08-21] MEDS: losartan 50 mg Tablet PO (10:06)
--- NOTE | 2024-08-21 11:39 | PC.NURSE ---
REceived patient from laboratory specialist staff at 0809. Patient is lethargic, but rousable and can have a conversation. HR: 81, BP: 198/102, SPO2: 93% on 2L NC, Temp:98.5. RR: 20. Sheath site is unremarkable. Dressing in place, CLean and dry. Angioseal placed in drop crew laborer.
[2024-08-21 12:38] LABS: Glucose Point of Care 212 mg/dL (70-110)
[2024-08-21] MEDS: insulin lispro 100 unit/1 mL SUBCUT ×2 (13:10→17:59)
--- NOTE | 2024-08-21 15:01 | PM.PN ---
Subjective Subjective: Patient is status post PCI this morning. Tolerated the procedure well. Medications: Reviewed: Yes Medication Review Details: Current Medications Acetaminophen (Acetaminophen 325 Mg Tablet) 650 mg PO Q6H PRN PRN Reason: MILD PAIN Hydrocodone Bitart/Acetaminophen (Hydrocodone-Acetaminophen 5-325 Mg Tablet) 1 tab PO Q4H PRN PRN Reason: PAIN Al Hydrox/Mg Hydrox/Simethicone (Ejex-Qxj-Xtuabtqxr-Alexander 30 Ml Udc) 30 ml PO Q15M PRN PRN Reason: INDIGESTION Alprazolam (Alprazolam 0.5 Mg Tablet) 0.25 mg PO TID PRN PRN Reason: ANXIETY Amlodipine Besylate (Amlodipine 5 Mg Tablet) 5 mg PO QPM [facility] Last Admin: 08/20/24 19:15 Dose: 5 mg Atropine Sulfate (Atropine 1 Mg/Ml Sdv 1 Ml) 0.5 mg IVP PRN PRN PRN Reason: Symptomatic bradycardia Buspirone HCl (Buspirone 10 Mg Tablet) 5 mg PO TID [facility] Last Admin: 08/21/24 08:54 Dose: 5 mg Calcitriol (Calcitriol 0.25 Mcg Capsule) 0.75 mcg PO DAILY [facility] Last Admin: 08/21/24 08:53 Dose: 0.75 mcg Carvedilol (Carvedilol 25 Mg Tablet) 50 mg PO TID [facility] Last Admin: 08/21/24 08:54 Dose: 50 mg Clonidine HCl (Clonidine 0.1 Mg Tablet) 0.2 mg PO TID [facility] Last Admin: 08/21/24 08:52 Dose: 0.2 mg Clopidogrel Bisulfate (Clopidogrel 75 Mg Tablet) 75 mg PO DAILY [facility] Last Admin: 08/21/24 08:53 Dose: 75 mg Fentanyl (Fentanyl 50 Mcg/Ml Inj 2ml) 50 mcg IVP PRN PRN PRN Reason: PAIN Furosemide (Furosemide 40 Mg Tablet) 80 mg PO BID [facility] Last Admin: 08/21/24 08:54 Dose: 80 mg Gabapentin (Gabapentin 100 Mg Capsule) 100 mg PO QAM [facility] Last Admin: 08/21/24 05:04 Dose: Not Given Gabapentin (Gabapentin 100 Mg Capsule) 200 mg PO BEDTIME [facility] Last Admin: 08/20/24 20:34 Dose: 200 mg Glucagon (Glucagon 1 Mg/Ml Kit 1 Ml) 1 mg IM ONCE PRN; Protocol PRN Reason: Adult Acute Hypoglycemia Nursing Prot. Heparin Sodium (Porcine) (Heparin 5,000 Unit/Ml Inj 1 Ml) 0 unit IVP PRN PRN; Protocol PRN Reason: Heparin Weight Based Protocol -Subsequent Bolus Last Admin: 08/19/24 01:33 Dose: 2,700 unit Hydralazine HCl (Hydralazine 50 Mg Tablet) 100 mg PO TID [facility] Last Admin: 08/20/24 20:32 Dose: 100 mg Sodium Chloride (Sodium Chloride 0.9%) 1,000 mls @ 0 mls/hr IV .Q0M PRN PRN Reason: hypotension or symptomatic Heparin Sodium/Sodium Chloride (Heparin Drip) 25,000 unit in 500 mls @ 0 mls/hr IV CONT [facility]; Protocol Last Titration: 08/21/24 05:02 Dose: Infused Dextrose (D5w) 500 mls @ 0 mls/hr IV ONCE PRN; Protocol PRN Reason: Adult Acute Hypoglycemia Prot Dextrose (D10w) 125 mls @ 750 mls/hr IV PRN PRN; Protocol PRN Reason: Adult Acute Hypoglycemia Nursing Protocol Dextrose (D10w) 250 mls @ 1,000 mls/hr IV PRN PRN; Protocol PRN Reason: Adult Acute Hypoglycemia Nursing Protocol Sodium Chloride (Sodium Chloride 0.9%) 1,000 mls @ 0 mls/hr IV .Q0M PRN PRN Reason: hypotension or symptomatic Albumin Human (Albumin) 12.5 gm in 50 mls @ 60 mls/hr IV PRN PRN PRN Reason: Hypotension and/or symptomatic Insulin Human Lispro (Insulin Lispro 100 Unit/1 Ml) 0 unit SUBCUT WM&BEDTIME [facility]; Protocol Last Admin: 08/21/24 09:46 Dose: Not Given Losartan Potassium (Losartan 50 Mg Tablet) 50 mg PO DAILY [facility] Stop: 08/21/24 23:59 Last Admin: 08/20/24 09:47 Dose: 50 mg Magnesium Hydroxide (Magnesium Hydroxide 30 Ml Udc) 30 ml PO DAILY PRN PRN Reason: CONSTIPATION Mirtazapine (Mirtazapine 15 Mg Tablet) 7.5 mg PO DAILY [facility] Last Admin: 08/21/24 08:51 Dose: 7.5 mg Naloxone HCl (Naloxone 0.4 Mg/Ml Sdv) 0.1 mg IVP Q2M PRN PRN Reason: RESPIRATORY RATE < 8/MIN Nifedipine (Nifedipine Er (24 Hr) 30 Mg Tablet) 30 mg PO DAILY [facility] Last Admin: 08/21/24 08:52 Dose: 30 mg Nitroglycerin (Nitroglycerin 0.4 Mg Sublingual Tablet) 0.4 mg SUBLINGUAL Q5M PRN PRN Reason: CHEST PAIN Non-Formulary Medication (Megestrol) 40 mg PO BID [facility] Pantoprazole Sodium (Pantoprazole Dr 40 Mg Tablet) 40 mg PO DAILY [facility] Last Admin: 08/21/24 08:54 Dose: 40 mg Ropinirole HCl (Ropinirole 0.25 Mg Tablet) 0.5 mg PO QPM [facility] Last Admin: 08/20/24 19:15 Dose: 0.5 mg Sevelamer Carbonate (Sevelamer 800 Mg Tablet) 800 mg PO TIDWM [facility] Last Admin: 08/21/24 08:53 Dose: 800 mg Temazepam (Temazepam 15 Mg Capsule) 15 mg PO BEDTIME PRN PRN Reason: INSOMNIA Vancomycin HCl (Vancomycin 1,000 Mg Sdv (Pharmacy Mix)) 0 mg XX PRN PRN PRN Reason: Pharmacy to Dose Venlafaxine HCl (Venlafaxine Er (24hr) 150 Mg Capsule) 150 mg PO DAILY [facility] Last Admin: 08/21/24 08:54 Dose: 150 mg Vitals/I&O/Wt Last Vital Signs Temp 98.5 F 08/21/24 11:00 Pulse 70 08/21/24 11:15 Resp 13 08/21/24 11:15 BP 144/89 08/21/24 11:15 Pulse Ox 99 08/21/24 11:15 O2 Del Method Room Air 08/21/24 11:15 O2 Flow Rate 2 08/21/24 11:00 FiO2 2 08/17/24 08:30 08/21/24 08/21/24 08/21/24 06:59 14:59 22:59 Intake Total 184.833 / 1684.600 Balance 184.833 / -1090.400 Weight last 48 hrs Weight 66.361 kg Weight 69.5 kg Weight 69.5 kg Physical Exam Narrative: General: No acute distress, AO x3 HEENT: PERRLA, pupils bilaterally equal and reactive, pallors not present Chest: Normal vesicular breath sounds, no added sounds, equal good air entry bilaterally CVS: S1-S2 regular, no murmurs, no tachycardia, no gallops, no rubs Abdomen: Soft, nontender, no organomegaly, bowel sounds present Neuro: No focal deficits, overall deconditioned , h/o prior strole affecting right side of hi sbody. Data 08/21/24 04:18 08/21/24 04:18 Micro: Microbiology 08/16/24 13:30 Blood Culture - Final Blood NO GROWTH AFTER 5 DAYS 08/16/24 13:32 Blood Culture - Final Blood Staphylococcus epidermidis Staphylococcus hominis 08/21/24 04:15 Occult Blood (FIT) - Final Stool Routine Collection A&P Assessment and plan (1) Acute hypoxemic respiratory failure: (2) Elevated troponin: (3) End stage kidney disease: (4) Pulmonary edema: (5) Pulmonary embolism: (6) Community acquired pneumonia: (7) Depression: Plan # Acute hypoxic respiratory failure -In the setting of pneumonia, pulmonary edema, PE -Patient currently off Bipap -He is now on 2L supplemental oxygen - Wean oxygen as tolerated #Community-acquired pneumonia - Continue vancomycin and cefepime -MRSA is positive -Urine Legionella antigen- pending #Acute pulmonary embolism - CT scan showed acute segmental and subsegmental pulmonary emboli described above worse in the right upper lobe. - No evidence of right heart strain, patient does have elevated troponin - Heparin infusion started, can switch to Eliquis if no cardiac intervention planned # Elevated troponin - Thought to be due to type II demand ischemia -TTE showed a reduced EF- 31%, unclear if this is new -Cardiology following, follow recommendations # Pulmonary edema # Heart failure with reduced EF # Ischemic cardiomyopathy-patient is status post CABG - Continue Lasix - Dialysis for volume management # ESRD - Nephrology consulted for dialysis needs # Type 2 diabetes - Glucose checks, sliding scale insulin # History of hypertension -Patient's BP elevated - Continue antihypertensives # History of depression - Continue antidepressants August 19, 2024 Chart reviewed. Continue heparin drip for pulmonary embolism. Aim to transition to Eliquis over the next 24 to 48 hours once angiogram has been completed. With new noted drop in EF, planned ischemic evaluation with corornary angiogram tomorrow. Medical management optimized by cardiology. Review of prior stress test from October 2023 had revealed patchy areas of decreased tracer uptake in the anteroseptal mild inferior and inferolateral regions with some ischemia in the mid inferior and inferior basal regions. Perhaps suggestive of ischemia in the distribution of the RCA. LVEF at that time was 40% estimated on the stress test. Echocardiogram at that time estimated on her 2D echo was at 55 to 60%. Additionally obtain fecal occult blood testing prior to placing patient on Eliquis given chronic anemia. Currently hemoglobin is at 8.2, per review of previous numbers this has been as low as 6.9 previously. Suspect this is related to CKD however GI bleeding would need to be excluded prior to transitioning to Eliquis. Is currently afebrile, hemodynamically stable. Blood pressure is well-maintained. Appreciate nephrology recommendations for dialysis. Transfer to [facility] 08/20/2024 Continue heparin anticoagulation for pulmonary embolism. Obtain lower extremity duplex. 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 Also states that at baseline he is not very mobile. He has been deconditioned as a result of shoulder fractures in the past. Currently he utilizes a wheelchair to get short distances within the home. May potentially have a DVT leading to the PE. May have underlying hypercoagulable state given history of CABG at a young age, and now also with a PE. Will refer to hematology as outpatient. Patient is planned for left heart cath in a.m per cardiology. N.p.o. postmidnight for the same. Aim to transition to Eliquis after the left heart cath and results of FOBT. Additionally results of his endoscopic evaluation from [facility] has been requested. Patient has been receiving loperamide since admission which we will discontinue. Will start lactulose. States that his last bowel movement was on (today is Tuesday). Hyperkalemia noted today, completing dialysis today. Discontinue cefepime as he has completed a 5-day course for pneumonia. Discontinue vancomycin after a 7-day course (day 5 today). favor Blood cx + for staph epi and staph hominis to be contaminants from 08/16 (one of 4 bottles) 08/21/2024 Patient is status post coronary angiogram and received a stent into the LCx this morning. He started on aspirin and Plavix dual antiplatelet therapy postprocedure. Additionally will discontinue heparin GTT today and transition to Eliquis 10 mg p.o. twice daily for 7 days, thereafter to be changed to 5 mg p.o. twice daily for pulmonary embolism. Patient had a bowel movement last night and tested negative on fecal occult blood testing. Endoscopy results from the last year remain pending. Discussed with cardiology that for 1 week we will continue DAPT plus Eliquis. After 1 week we will change treatment to Plavix and Eliquis for the long-term. Will refer to hematology as outpatient to assess for any underlying hypercoagulable state. Continue vancomycin day 6 today. Discontinue tomorrow after last dose. Ordered for LifeVest discharge. PDMP PDMP Reviewed: Not Reviewed Attestations Medical Necessity Statement*: Status post PCI today. Transition heparin to oral anticoagulation today. Occult blood testing negative. Anticipate discharge in the upcoming 24 hours if continues to do well. Coding Level of Care Code Acute Code for [facility] Diagnoses Acute hypoxemic respiratory failure J96.01 Elevated troponin R79.89 End stage kidney disease N18.6 Pulmonary edema J81.1 Multiple subsegmental pulmonary emboli without acute cor pulmonale I26.94 Pulmonary embolism type: multiple subsegmental (without acute cor pulmonale) Community acquired pneumonia J18.9 Depression F32.A
[2024-08-21 17:18] LABS: Glucose Point of Care 423 mg/dL (70-110)
[2024-08-21] MEDS: ropinirole 0.25 mg Tablet 0.5 MG PO (17:58)
[2024-08-21] MEDS: amlodipine 10 mg Tablet PO (17:58)
--- NOTE | 2024-08-21 18:26 | PC.NURSE ---
SHift SUmmary: Uneventful shift. No complications from morning PCI. 1 stent placed. Dialysis tommorow.
[2024-08-21] MEDS: apixaban 5 mg Tablet 10 MG PO (20:35)
[2024-08-21] MEDS: gabapentin 100 mg Capsule 200 MG PO (20:36)
[2024-08-21 20:44] LABS: Glucose Point of Care 104 mg/dL (70-110)
[2024-08-22] VITALS (17 sets, daily range): BP systolic 136–167; BP diastolic 71–96; PULSE 67–79; RESP 13–30; TEMP 36.6–36.8; O2SAT 90–100
[2024-08-22 03:33] LABS: Basophils # 0.1 10^3/uL (0.0-0.1); Basophils % 1.1 %; Eosinophils # 0.3 10^3/uL (0.0-0.8); Hematocrit 26.7 % (37-53); Lymphocytes # 0.9 10^3/uL (0.8-4.8); Lymphocytes % 10.9 %; Mean Corpuscular HGB Conc 31.1 g/dL (30-55); Mean Corpuscular Hemoglobin 30.4 pg (27-33); Mean Corpuscular Volume 97.8 fl (82-101); Mean Platelet Volume 9.8 fL (7.4-10.4); Monocytes # 0.7 10^3/uL (0.2-0.9); Monocytes % 8.3 %; Neutrophils # 6.48 10^3/uL (1.8-7.7); Neutrophils % 75.9 %; Nucleated Red Blood Cells # 0.1 /100WBC; Nucleated Red Blood Cells % 0.6 %; Platelet Count 164 10^3/cmm (157-399); Red Blood Count 2.73 10^6/uL (3.85-5.65); Red Cell Distribution Width 18.7 % (12.1-15.1); White Blood Count 8.54 10^3/uL (3.29-11.43)
[2024-08-22 04:03] LABS: Parathyroid Hormone 53.8 pg/mL (15-65)
[2024-08-22 04:05] LABS: Alanine Aminotransferase 6 U/L (0-41); Albumin Level 3.3 g/dL (3.5-5.2); Alkaline Phosphatase 52 U/L (40-130); Anion Gap 20.6 (5-19); Aspartate Amino Transferase 10 U/L (0-40); Blood Urea Nitrogen 35 mg/dL (6-20); Calcium 10.2 mg/dL (8.5-10.5); Carbon Dioxide 22 mmol/L (22-29); Chloride 97 mmol/L (98-107); Creatinine Clr Calc Pharmacy 19.8924; Globulin 2.8 g/dL (1.3-4.6); Glucose 137 mg/dL (65-115); Magnesium 2.2 mg/dL (1.7-2.3); Osmolality Calculated 288 mOsm/kg (285-295); Phosphorus 3.2 mg/dL (2.5-4.5); Potassium 5.6 mmol/L (3.5-5.1); Sodium 134 mmol/L (136-145); Total Bilirubin 0.3 mg/dL (0.15-1.2); Total Protein 6.1 g/dL (6.6-8.7); Uric Acid 4.9 mg/dL (3.4-7.0)
[2024-08-22] MEDS: gabapentin 100 mg Capsule PO (05:10)
[2024-08-22 07:16] LABS: Glucose Point of Care 275 mg/dL (70-110)
[2024-08-22] MEDS: BuSPIRONE 10 mg Tablet 5 MG PO (08:18)
[2024-08-22] MEDS: cloNIDine 0.1 mg Tablet 0.2 MG PO (08:18)
[2024-08-22] MEDS: carvedilol 25 mg Tablet 50 MG PO (08:18)
[2024-08-22] MEDS: FUROsemide 40 mg Tablet 80 MG PO (08:18)
[2024-08-22] MEDS: apixaban 5 mg Tablet 10 MG PO (08:18)
[2024-08-22] MEDS: pantoprazole DR 40 mg Tablet PO (08:19)
[2024-08-22] MEDS: hyDRALAzine 50 mg Tablet 100 MG PO (08:19)
[2024-08-22] MEDS: venlafaxine ER (24HR) 150 mg Capsule PO (08:19)
[2024-08-22] MEDS: NIFEdipine ER (24 hr) 30 mg Tablet PO (08:19)
[2024-08-22] MEDS: clopidogrel 75 mg Tablet PO (08:19)
[2024-08-22] MEDS: aspirin 81 mg EC Tablet PO (08:19)
[2024-08-22] MEDS: mirtazapine 15 mg Tablet 7.5 MG PO (08:19)
[2024-08-22] MEDS: calcitriol 0.25 mcg Capsule 0.75 MCG PO (08:19)
[2024-08-22] MEDS: sevelamer 800 mg Tablet PO (08:19)
[2024-08-22] MEDS: insulin regular-human 100 units/1 mL 10 UNIT IVP (08:43)
[2024-08-22] MEDS: albuterol 2.5 mg/3 mL Neb INHALATION (09:00)
--- NOTE | 2024-08-22 09:34 | PM.PN ---
Subjective Subjective: seen and examined. feels well. no n/v/f/cp/c/tanner/d Medications: Reviewed: Yes Medication Review Details: Current Medications Acetaminophen (Acetaminophen 325 Mg Tablet) 650 mg PO Q6H PRN PRN Reason: MILD PAIN Hydrocodone Bitart/Acetaminophen (Hydrocodone-Acetaminophen 5-325 Mg Tablet) 1 tab PO Q4H PRN PRN Reason: PAIN Alprazolam (Alprazolam 0.5 Mg Tablet) 0.25 mg PO TID PRN PRN Reason: ANXIETY Amlodipine Besylate (Amlodipine 10 Mg Tablet) 10 mg PO QPM [facility] Last Admin: 08/21/24 17:58 Dose: 10 mg Apixaban (Apixaban 5 Mg Tablet) 10 mg PO BID@0900,2100 [facility] Stop: 08/28/24 09:01 Last Admin: 08/22/24 08:18 Dose: 10 mg Aspirin (Aspirin 81 Mg Ec Tablet) 81 mg PO DAILY [facility] Last Admin: 08/22/24 08:19 Dose: 81 mg Atropine Sulfate (Atropine 1 Mg/Ml Sdv 1 Ml) 0.5 mg IVP PRN PRN PRN Reason: Symptomatic bradycardia Buspirone HCl (Buspirone 10 Mg Tablet) 5 mg PO TID [facility] Last Admin: 08/22/24 08:18 Dose: 5 mg Calcitriol (Calcitriol 0.25 Mcg Capsule) 0.75 mcg PO DAILY [facility] Last Admin: 08/22/24 08:19 Dose: 0.75 mcg Carvedilol (Carvedilol 25 Mg Tablet) 50 mg PO TID [facility] Last Admin: 08/22/24 08:18 Dose: 50 mg Clonidine HCl (Clonidine 0.1 Mg Tablet) 0.2 mg PO TID [facility] Last Admin: 08/22/24 08:18 Dose: 0.2 mg Clopidogrel Bisulfate (Clopidogrel 75 Mg Tablet) 75 mg PO DAILY [facility] Last Admin: 08/22/24 08:19 Dose: 75 mg Fentanyl (Fentanyl 50 Mcg/Ml Inj 2ml) 50 mcg IVP PRN PRN PRN Reason: PAIN Furosemide (Furosemide 40 Mg Tablet) 80 mg PO BID [facility] Last Admin: 08/22/24 08:18 Dose: 80 mg Gabapentin (Gabapentin 100 Mg Capsule) 100 mg PO QAM [facility] Last Admin: 08/22/24 05:10 Dose: 100 mg Gabapentin (Gabapentin 100 Mg Capsule) 200 mg PO BEDTIME [facility] Last Admin: 08/21/24 20:36 Dose: 200 mg Glucagon (Glucagon 1 Mg/Ml Kit 1 Ml) 1 mg IM ONCE PRN; Protocol PRN Reason: Adult Acute Hypoglycemia Nursing Prot. Hydralazine HCl (Hydralazine 50 Mg Tablet) 100 mg PO TID [facility] Last Admin: 08/22/24 08:19 Dose: 100 mg Sodium Chloride (Sodium Chloride 0.9%) 1,000 mls @ 0 mls/hr IV .Q0M PRN PRN Reason: hypotension or symptomatic Dextrose (D5w) 500 mls @ 0 mls/hr IV ONCE PRN; Protocol PRN Reason: Adult Acute Hypoglycemia Prot Dextrose (D10w) 125 mls @ 750 mls/hr IV PRN PRN; Protocol PRN Reason: Adult Acute Hypoglycemia Nursing Protocol Dextrose (D10w) 250 mls @ 1,000 mls/hr IV PRN PRN; Protocol PRN Reason: Adult Acute Hypoglycemia Nursing Protocol Sodium Chloride (Sodium Chloride 0.9%) 1,000 mls @ 0 mls/hr IV .Q0M PRN PRN Reason: hypotension or symptomatic Albumin Human (Albumin) 12.5 gm in 50 mls @ 60 mls/hr IV PRN PRN PRN Reason: Hypotension and/or symptomatic Insulin Human Lispro (Insulin Lispro 100 Unit/1 Ml) 0 unit SUBCUT WM&BEDTIME [facility]; Protocol Last Admin: 08/22/24 08:26 Dose: Not Given Magnesium Hydroxide (Magnesium Hydroxide 30 Ml Udc) 30 ml PO DAILY PRN PRN Reason: CONSTIPATION Mirtazapine (Mirtazapine 15 Mg Tablet) 7.5 mg PO DAILY [facility] Last Admin: 08/22/24 08:19 Dose: 7.5 mg Naloxone HCl (Naloxone 0.4 Mg/Ml Sdv) 0.1 mg IVP Q2M PRN PRN Reason: RESPIRATORY RATE < 8/MIN Nifedipine (Nifedipine Er (24 Hr) 30 Mg Tablet) 30 mg PO DAILY [facility] Last Admin: 08/22/24 08:19 Dose: 30 mg Nitroglycerin (Nitroglycerin 0.4 Mg Sublingual Tablet) 0.4 mg SUBLINGUAL Q5M PRN PRN Reason: CHEST PAIN Non-Formulary Medication (Megestrol) 40 mg PO BID [facility] Pantoprazole Sodium (Pantoprazole Dr 40 Mg Tablet) 40 mg PO DAILY [facility] Last Admin: 08/22/24 08:19 Dose: 40 mg Ropinirole HCl (Ropinirole 0.25 Mg Tablet) 0.5 mg PO QPM [facility] Last Admin: 08/21/24 17:58 Dose: 0.5 mg Sevelamer Carbonate (Sevelamer 800 Mg Tablet) 800 mg PO TIDWM [facility] Last Admin: 08/22/24 08:19 Dose: 800 mg Temazepam (Temazepam 15 Mg Capsule) 15 mg PO BEDTIME PRN PRN Reason: INSOMNIA Vancomycin HCl (Vancomycin 1,000 Mg Sdv (Pharmacy Mix)) 0 mg XX PRN PRN PRN Reason: Pharmacy to Dose Stop: 08/23/24 14:14 Venlafaxine HCl (Venlafaxine Er (24hr) 150 Mg Capsule) 150 mg PO DAILY [facility] Last Admin: 08/22/24 08:19 Dose: 150 mg Vitals/I&O/Wt Last Vital Signs Temp 97.9 F 08/22/24 02:00 Pulse 76 08/22/24 09:06 Resp 14 08/22/24 09:06 BP 164/92 08/22/24 09:06 Pulse Ox 100 08/22/24 09:06 O2 Del Method Room Air 08/22/24 09:00 O2 Flow Rate 2 08/22/24 06:00 FiO2 2 08/17/24 08:30 08/21/24 08/22/24 08/22/24 22:59 06:59 14:59 Intake Total 120 / 120 100 / 220 Output Total 125 / 125 Balance -5 / -5 100 / 95 Weight last 48 hrs Weight 66.769 kg Weight 66.361 kg Weight 69.5 kg Physical Exam Narrative: vital signs noted General - lethargic in bed, + nc02 HEENT-normocephalic, atraumatic, PERRL Lungs-dull bases bilaterally, no crackles, no wheezes Cardiovascular-S1, S2, regular rate and rhythm Abdomen-soft, nontender, normal bowel sounds Extremities-no pedal edema Neuro-A,A,O X 3 Dialysis access right IJ permacath. Data 08/22/24 03:19 08/22/24 03:19 Micro: Microbiology 08/16/24 13:30 Blood Culture - Final Blood NO GROWTH AFTER 5 DAYS 08/16/24 13:32 Blood Culture - Final Blood Staphylococcus epidermidis Staphylococcus hominis 08/21/24 04:15 Occult Blood (FIT) - Final Stool Routine Collection A&P Assessment and plan (1) End stage kidney disease: Plan 1. End-stage renal disease: On TTS schedule, He is off schedule here. will dialyze today -3.5 hrs 2k bath, remove fluid as tolerated 2. POD #1 s/p cardiac cath and stent 3. Hypertension: lower EDW as tolerated on HDBlood pressure is well-controlled. 4. Acute on chronic respiratory failure: Multifactorial in the setting of pneumonia and pulmonary embolism as well as pulmonary edema 5. Anemia: Hemoglobin 8.3 , GIANCARLO with HD. However will limit the dose of Epogen given pulmonary embolism and hypercoagulable risk with erythropoietin stimulating agents. 6. Appreciate cardiology as EF is decreased -s/p PCI to the proximal diagonal branch: Balloon angioplasty using noncompliant Kelley score was used to predilate the lesion. Lesion was then treated with Tommie 3.0 x 15 mm drug-eluting stent postdilated with a three 5 x 8 noncompliant balloon. Good angiographic result with JAZMYNE-3 flow was noted at the end the case without any complication. use DAPT 7. pth 53 and calcium of 10- stop calcitriol- mthey will monitor pth at outpt HD center and can give him hecterol or calcitriol when needed. for ESRD we wnat pth > 200 Patient evaluated using audiovisual cart. The patient consents to dialysis. PDMP PDMP Reviewed: Not Reviewed Attestations Medical Necessity Statement*: per cardiology Time Spent in Patient Care: Greater than 35 minutes (>than 50% of time spent in counselling and/or direct pt care on unit). Coding Level of Care Code Acute Code for [facility] Diagnoses End stage kidney disease N18.6
[2024-08-22 11:15] LABS: Glucose Point of Care 108 mg/dL (70-110)
--- NOTE | 2024-08-22 11:27 | P.PN_ITS ---
<Statement entered by Julio Monaco M.D - 08/24/24 09:19> Patient was cared for in conjunction with an advanced practice practitioner.? I reviewed the chart and all pertinent data including imaging, telemetry, and laboratory results.? I discussed the patient in detail with the advanced practice practitioner.? Please see? their note for complete progress note, testing results and agreed upon plan of care for the patient. Subjective 2 Subjective: He has done well overnight. Underwent stent of the SVG to diagonal yesterday. LifeVest ordered, can possibly be placed today. Vitals/I&O/Wt Last Vital Signs Temp 97.9 F 08/22/24 02:00 Pulse 73 08/22/24 10:49 Resp 19 H 08/22/24 10:49 BP 162/85 08/22/24 10:49 Pulse Ox 96 08/22/24 10:49 O2 Del Method Room Air 08/22/24 09:00 O2 Flow Rate 2 08/22/24 06:00 FiO2 2 08/17/24 08:30 08/21/24 08/22/24 08/22/24 22:59 06:59 14:59 Intake Total 120 / 220 100 / 220 Output Total 125 / 125 Balance -5 / 95 100 / 95 Weight last 48 hrs Weight 147 lb 3.2 oz Weight 146 lb 4.8 oz Weight 153 lb 3.54 oz Physical Exam 2 Const: COMMON NORMALS: no acute distress and patient oriented x3 GENERAL APPEARANCE: cooperative ORIENTATION/CONSCIOUSNESS: Yes awake, Yes oriented to person, Yes oriented to place and Yes oriented to time Chest: COMMONS NORMALS: normal inspection of the chest and normal palpation of entire chest wall CHEST: Yes Symmetrical chest wall rise Resp: COMMON NORMALS: normal respiratory effort, No retractions, No use of accessory muscles and clear to auscultation bilaterally AUSCULTATION: clear to auscultation bilaterally Cardio: COMMON NORMALS: regular rate, regular rhythm, S1 normal heart sound present, S2 normal heart sound present, No gallops present (Cardio), No clicks present (Cardio), No murmurs present (Cardio) and No rub (Cardio) RATE: r egular rate RHYTHM: regular rhythm HEART SOUNDS: S1 normal heart sound present and S2 normal heart sound present PERIPHERAL PULSES: radial pulses present positive right 2+ and femoral pulses present positive right 2+ Neuro: COMMON NORMALS: patient oriented x3 and moves all extremities S ENSORIUM/ORIENTATION: Yes oriented to person, Yes oriented to place and Yes oriented to time Skin: WOUNDS: Yes surgical site (no hematoma palpable) Details: no odor Data 08/22/24 03:19 08/22/24 03:19 Micro: Microbiology 08/16/24 13:30 Blood Culture - Final Blood NO GROWTH AFTER 5 DAYS 08/16/24 13:32 Blood Culture - Final Blood Staphylococcus epidermidis Staphylococcus hominis A&P Assessment and plan (1) Ischemic congestive cardiomyopathy: (2) Atherosclerosis of coronary artery of [place] heart without angina pectoris: (3) Pulmonary embolism: (4) Chronic hypertension: (5) End stage kidney disease: Plan Hemoglobin 8.3 today, patient has ESRD on dialysis. Addressed by the hospitalist today, FOBT negative. He appears euvolemic. Continue Eliquis, Plavix, aspirin x 1 week then reduce to Eliquis and Plavix only. Discharge is planned soon. Follow-up in the cardiology clinic in 2 weeks. PDMP PDMP Reviewed: Not Reviewed Attestations 2 Medical Necessity Statement*: Possible discharge Coding Level of Care Code Acute Code for [facility] Fwd Diagnoses Ischemic congestive cardiomyopathy I25.5; I42.0 Atherosclerosis of [place] coronary artery of [place] heart without angina pectoris I25.10 Coronary Disease-Associated Artery/Lesion type: [place] artery Multiple subsegmental pulmonary emboli without acute cor pulmonale I26.94 Pulmonary embolism type: multiple subsegmental (without acute cor pulmonale) Chronic hypertension I10 End stage kidney disease N18.6
--- NOTE | 2024-08-22 11:52 | PC.SOCIAL ---
IMM Updated Updated pt on IMM. No questions voiced. Provided pt a copy. Initialed, dated, & timed copy in chart.
--- NOTE | 2024-08-22 12:01 | PM.DCS ---
Discharge Providers Date of Admission: 08/16/24 16:31 Date of Discharge: August 22, 2024 Attending Provider at Admission: Sepideh Magaña MD Attending Provider at Discharge: Loreta Silva MD Primary Care Provider: Yaniv Moe MD Diagnoses at Discharge Discharge Diagnosis (1) Ischemic congestive cardiomyopathy: Status: Acute (2) Atherosclerosis of coronary artery of [place] heart without angina pectoris: Status: Acute Qualifiers: Coronary Disease-Associated Artery/Lesion type: [place] artery Qualified Code(s): I25.10 - Atherosclerotic heart disease of [place] coronary artery without angina pectoris (3) Pulmonary embolism: Status: Acute Qualifiers: Pulmonary embolism type: multiple subsegmental (without acute cor pulmonale) Qualified Code(s): I26.94 - Multiple subsegmental thrombotic pulmonary emboli without acute cor pulmonale (4) Chronic hypertension: Status: Acute (5) End stage kidney disease: Status: Acute Reason for Visit Reason for Visit: hpyertension - weakness Hospital Course Hospital Course Jose Guadalupe Claudio is a 43 year old male with history of end-stage renal disease on hemodialysis (TTS schedule), COVID-19 in 2020 complicated by cardiac arrest, coma, stroke, and need for tracheostomy who presented from his dialysis center on 08/16/24 for further evaluation of worsening shortness of breath, generalized weakness. In the ER, CT of the chest was significant for acute segmental and subsegmental pulmonary emboli was in the right upper lobe, patchy opacities in the right upper lobe and some opacities in the lung bases. He was started on heparin infusion and also received antibiotics. He was also noted to be hypoxic and was started on BiPAP on admission. He received anticoagulation with heparin drip which has been transitioned to Eliquis at the time of discharge. He has completed 2 days of loading dose Eliquis here in the hospital, transition to completing 5 days of Eliquis at 10 mg twice daily and then reduce the dose to 5 mg twice daily. Cardiology service was consulted due to elevated troponins and a drop in ejection fraction to 31% along with global left ventricular hypokinesia. He underwent coronary angiogram on August 21, 2024 and received a stent into the LCx. No complications, he tolerated the procedure well. Patient has a known history of premature coronary artery disease and had a CABG several years ago previously. For his CAD, now with stents he was started on dual antiplatelet therapy with aspirin and Plavix. Current plan per cardiology is to continue aspirin, Plavix and Eliquis for total 1 week, thereafter discontinue the aspirin and continue only Plavix and Eliquis combination going forward. Patient was noted to have chronic anemia in the setting of chronic kidney disease. Fecal occult blood testing on this current admission was negative. Patient states he has previously had endoscopic evaluation at [facility], results have been requested though not yet received however patient states this was normal to the best of his knowledge. Patient's respiratory status has gradually improved during the course of this admission. He is on room air today. At a baseline he uses a wheelchair, is only able to assist with transfers from bed to chair. He is being discharged today in an improved condition. LifeVest is being arranged by cardiology at discharge. He will receive a session of hemodialysis prior to discharge today given hyperkalemia and PCI yesterday. He will resume his outpatient dialysis on schedule Tuesday. Patient has been referred to see hematology additionally as an outpatient. Concerned that with premature CAD and now with a PE, he may have underlying hypercoagulable state as potentially contributing which may warrant use of Eliquis retirement. Lower extremity Doppler was negative for DVT. Calcitriol was stopped per renal recommendation as patient's PTH was 53 while recommended goal for ESRD patients's PTH greater than 200. Physical Exam Narrative: General: No acute distress, AO x3 HEENT: PERRLA, pupils bilaterally equal and reactive, pallors not present Chest: Normal vesicular breath sounds, no added sounds, equal good air entry bilaterally CVS: S1-S2 regular, no murmurs, no tachycardia, no gallops, no rubs Abdomen: Soft, nontender, no organomegaly, bowel sounds present Neuro: global deconditioning at baseline. Discharge Data Studies Completed and Pending Completed Studies During Hospitalization Category Date Time Status CT angio chest PE protcl [id number] Stat Cat Scan 08/16/24 13:44 Completed XR chest 1V portable [id number] Stat Exams 08/16/24 13:01 [place] [id number] Routine Ultrasound 08/20/24 13:19 Completed CV. echo complete* [id number] Routine Ultrasound 08/16/24 17:00 Completed Pending at discharge Category Date Time Status TECHNICAL ENGINEER request for service Routine Exams 08/21/24 06:00 Taken Cardiac Stress Test MIBI [Sestamibi Stress Test Request Exams 08/19/24 11:18 Stop Req ] Routine Complete Blood Count w/Auto AM LABS Lab 08/23/24 04:00 Ordered Comprehensive Metabolic Panel AM LABS Lab 08/23/24 04:00 Ordered Legionella Antigen STAT Routine Lab 08/16/24 18:06 Uncollected Magnesium AM LABS Lab 08/23/24 04:00 Ordered Phosphorus AM LABS Lab 08/23/24 04:00 Ordered Urinalysis Stat Lab 08/16/24 13:01 Uncollected Radiology Impressions Chest X-Ray 08/16/24 13:01 IMPRESSION: Resolving airspace consolidation in the left lung with minimal residual. Findings indicative of early pulmonary edema either secondary to congestive heart failure or fluid and balance due to the renal failure. Chest CTA 08/16/24 13:44 IMPRESSION: 1. Acute segmental and subsegmental pulmonary emboli described above worse in the RIGHT upper lobe. 2. No evidence of RIGHT heart strain. 3. Small RIGHT and tiny LEFT pleural effusions with subsegmental atelectasis and a few patchy opacities in the lung bases likely infectious or inflammatory. 4. Additional infectious or inflammatory patchy opacities in the RIGHT upper lobe. Some of these could represent developing pulmonary infarcts. Notified Jairo Lakhani MD at 08/16/2024 3:21 PM. Venous Duplex 08/20/24 13:19 IMPRESSION: No evidence of deep vein thrombosis. Laboratory Results WBC 8.54 10^3/uL (3.29-11.43) 08/22/24 03:19 RBC 2.73 10^6/uL (3.85-5.65) L 08/22/24 03:19 Hgb 8.30 g/dL (11.27-16.99) L 08/22/24 03:19 Hct 26.7 % (37-53) L 08/22/24 03:19 MCV 97.8 fl (82-101) 08/22/24 03:19 MCH 30.4 pg (27-33) 08/22/24 03:19 MCHC 31.1 g/dL (30-55) 08/22/24 03:19 RDW 18.7 % (12.1-15.1) H 08/22/24 03:19 Plt Count 164 10^3/cmm (157-399) 08/22/24 03:19 MPV 9.8 fL (7.4-10.4) 08/22/24 03:19 Neut % (Auto) 75.9 % 08/22/24 03:19 Lymph % (Auto) 10.9 % 08/22/24 03:19 [place] % (Auto) 8.3 % 08/22/24 03:19 Eos % (Auto) 3.0 % 08/22/24 03:19 Baso % (Auto) 1.1 % 08/22/24 03:19 Neut # (Auto) 6.48 10^3/uL (1.8-7.7) 08/22/24 03:19 Lymph # (Auto) 0.9 10^3/uL (0.8-4.8) 08/22/24 03:19 [place] # (Auto) 0.7 10^3/uL (0.2-0.9) 08/22/24 03:19 Eos # (Auto) 0.3 10^3/uL (0.0-0.8) 08/22/24 03:19 Baso # (Auto) 0.1 10^3/uL (0.0-0.1) 08/22/24 03:19 Nucleated RBC % (auto) 0.6 % 08/22/24 03:19 Nucleated RBCs # 0.1 /100WBC 08/22/24 03:19 APTT 56.1 SECONDS (23.9-36.7) H 08/21/24 04:18 Specimen Type Arterial 08/16/24 13:03 Sample Site Radial, left 08/16/24 13:03 ABG pH 7.49 (7.35-7.45) H 08/16/24 13:03 ABG pCO2 31.3 mmHg (35-45) L 08/16/24 13:03 ABG pO2 41.4 mmHg (80.0-100.0) L 08/16/24 13:03 ABG HCO3 23.7 mmol/L (22-26) 08/16/24 13:03 ABG Base Excess 0.8 mmol/L (-2.0-2.0) 08/16/24 13:03 [place] Test Pos 08/16/24 13:03 Hematocrit 30.3 % (42-52) L 08/16/24 13:03 O2 Delivery Device Nc 08/16/24 13:03 O2 Liters/Min 4.0 % 08/16/24 13:03 Automated Cutting Machine Operator ID Stan 08/16/24 13:03 Sodium 134 mmol/L (136-145) L 08/22/24 03:19 Potassium 5.6 mmol/L (3.5-5.1) H 08/22/24 03:19 Chloride 97 mmol/L (98-107) L 08/22/24 03:19 Carbon Dioxide 22 mmol/L (22-29) 08/22/24 03:19 Anion Gap 20.6 (5-19) H 08/22/24 03:19 BUN 35 mg/dL (6-20) H 08/22/24 03:19 Creatinine 4.9 mg/dL (0.7-1.2) H 08/22/24 03:19 GFR Calculation 13.0 mL/min (90-130) L 08/22/24 03:19 Glucose 137 mg/dL (65-115) H 08/22/24 03:19 POC Glucose 108 mg/dL (70-110) 08/22/24 11:12 Calculated Osmolality 288 mOsm/kg (285-295) 08/22/24 03:19 Lactic Acid 2.6 mmol/L (0.5-2.2) H 08/16/24 12:25 Lactic Acid (Sepsis) 1.5 mmol/L (0.5-2.2) 08/16/24 15:43 Uric Acid 4.9 mg/dL (3.4-7.0) 08/22/24 03:19 Calcium 10.2 mg/dL (8.5-10.5) 08/22/24 03:19 Phosphorus 3.2 mg/dL (2.5-4.5) 08/22/24 03:19 Magnesium 2.2 mg/dL (1.7-2.3) 08/22/24 03:19 Total Bilirubin 0.3 mg/dL (0.15-1.2) 08/22/24 03:19 AST 10 U/L (0-40) 08/22/24 03:19 ALT 6 U/L (0-41) 08/22/24 03:19 Alkaline Phosphatase 52 U/L (40-130) 08/22/24 03:19 Troponin T Baseline 385 ng/L (0-15) H* 08/16/24 12:25 Troponin T 120 Minute 379.0 ng/L (0-15) H 08/16/24 14:21 Delta Troponin T -6.0 ABS# (0-10) L 08/16/24 14:21 Troponin T Hi Sens 6Hr 360.1 ng/L (0-15) H 08/16/24 18:26 Troponin T Hi Sens 6Hr Delta -24.9 ng/L (0-12) L 08/16/24 18:26 NT-Pro-B Natriuret Pep > 38889 pg/mL (0-125) H 08/16/24 12:25 Total Protein 6.1 g/dL (6.6-8.7) L 08/22/24 03:19 Albumin 3.3 g/dL (3.5-5.2) L 08/22/24 03:19 Globulin 2.8 g/dL (1.3-4.6) 08/22/24 03:19 PTH Intact 53.8 pg/mL (15-65) 08/22/24 03:19 Calcium (PTH Intact) 10.0 mg/dL (8.5-10.5) 08/22/24 03:19 Nasal MRSA (PCR) Mrsa detected (Negative) A 08/16/24 22:53 Vancomycin Trough 22.1 ug/mL (10-15) H 08/17/24 14:41 Random Vancomycin 20.8 ug/mL (20.0-40.0) 08/19/24 04:57 Hep Bs Antigen Non-reactive (Nonreactive) 08/16/24 12:25 Hep Bs Antibody 141.2 (11.5-1000) 08/16/24 12:25 Influenza A (PCR) Negative (Negative) 08/16/24 15:08 Influenza Type B (PCR) Negative (Negative) 08/16/24 15:08 RSV (PCR) Negative (Negative) 08/16/24 15:08 SARS-CoV-2 (PCR) Negative (Negative) 08/16/24 15:08 Vitals Last Vital Signs Temp 97.9 F 08/22/24 02:00 Pulse 73 08/22/24 11:49 Resp 20 H 08/22/24 11:49 BP 149/89 08/22/24 11:49 Pulse Ox 91 08/22/24 11:49 O2 Del Method Room Air 08/22/24 09:00 O2 Flow Rate 2 08/22/24 06:00 FiO2 2 08/17/24 08:30 Discharge Plan Discharge Patient Disposition: Home Condition: Stable Prescriptions: New Eliquis 5 mg Tablet See Rx Instructions .ROUTE .COMPLEX Qty: 90 0RF Rx Instructions: take 10mg BID for 5 days, then reduce leigh to 5mg twice a day clopidogrel 75 mg Tablet 75 mg PO DAILY 30 Days Qty: 30 2RF aspirin 81 mg Tablet,Delayed Release (Dr/Ec) 81 mg PO DAILY 5 Days Qty: 5 0RF Continued buspirone 5 mg tablet 5 mg PO TID carvedilol 25 mg tablet 50 mg PO TID bumetanide 2 mg tablet 2 mg PO DAILY PRN (Reason: dialysis days only) Rx Instructions: TAKE 1 TABLET BY MOUTH ONCE DAILY ON NON-DIALYSIS DAY loperamide 2 mg capsule See Rx Instructions .ROUTE .COMPLEX Rx Instructions: TAKE 1 CAPSULE BY MOUTH IN THE MORNING AND 3 IN THE EVENING sodium bicarbonate 325 mg tablet 325 mg PO DAILY lisinopril 20 mg tablet 20 mg PO DAILY clonidine HCl 0.3 mg tablet 0.3 mg PO TID venlafaxine 150 mg capsule,extended release 24hr 150 mg PO DAILY nifedipine 30 mg tablet extended release 30 mg PO DAILY amlodipine 5 mg tablet 5 mg PO QPM furosemide 80 mg tablet 80 mg PO BID hydralazine 100 mg tablet 100 mg PO TID pantoprazole 40 mg tablet,delayed release (DR/EC) 40 mg PO DAILY ropinirole 0.5 mg tablet 0.5 mg PO QPM megestrol 40 mg tablet 40 mg PO BID mirtazapine 15 mg tablet 7.5 mg PO DAILY gabapentin 100 mg capsule See Rx Instructions .ROUTE .COMPLEX Rx Instructions: TAKE 2 CAPSULES BY MOUTH IN THE EVENING AND 1 AT BEDTIME insulin lispro 100 unit/mL insulin pen 15 unit SUBCUT TID Rx Instructions: subcutaneously sevelamer carbonate 800 mg tablet See Rx Instructions .ROUTE .COMPLEX Rx Instructions: TAKE 2 TABLETS BY MOUTH WITH THE LARGEST MEAL OF THE DAY AND 1 TABLET WITH OTHER MEALS (4 TABLETS TOTAL PER DAY) RenaPlex-D 800 mcg-12.5 mg -2,000 unit tablet See Rx Instructions .ROUTE .COMPLEX Rx Instructions: TAKE 1 TABLET BY MOUTH EVERY DAY (ON DIALYSIS DAYS, TAKE AFTER DIALYSIS TREATMENT) Held calcitriol 0.25 mcg capsule 0.75 mcg PO DAILY Hold Instructions: Resume on 09/05/24. hold until follow up with nephrology Discharge Orders: Discharge Order (Routine); Ordered 08/22/24 Ordered By: Loreta Silva Other Ambulatory Orders: Physical Therapy Eval and Treat Outpatient (Order) Timeframe: 3 Days Facility: [facility] - Location: Physical Therapy Ordered By: Loreta Silva Referrals: Yvonne Naranjo NP [Nurse Practitioner, Cardiology] - 08/28/24 8:30 am Yaniv Moe MD [Primary Care Provider, Family Practice] - 08/27/24 10:00 am Referral Note: hospital discharge follow up, patient had cath with stent to LCx and has PE Orquidea Rodriguez MD [Hospitalist, Oncology] - 09/18/24 11:30 am Referral Note: PE and premature CAD ? hypercoagulable state lab draw at 11:30 ,appointment at 12:30 Ursula Lyn MD [Physician, Cardiology] - 1 month Referral Note: after visit with cardiology nurse ,wilman Almeida schedule follow up with Agnes Holguin MD [Referring] - 2 weeks Referral Note: PTH 53, stopped calcitriol, please follow outpatient Discharge Diet: As Directed Discharge Activity: Resume usual activity Patient Instructions: Aspirin (By mouth) ([place] Extra Strength, [place] Aspirin [facility],..., Clopidogrel (By mouth) (Plavix), Apixaban (By mouth) (Eliquis), Heart Failure (DC), Coronary Angioplasty (DC), Pulmonary Embolism (DC), Sepsis (DC), End Stage Kidney Disease (DC), Chronic Respiratory Failure (DC), Coronary Intravascular Stent Placement (DC), CHF Stoplight, Chest Pain Stoplight, Opioid Safety, Post Angiogram Home Care Instructions Activity Restrictions/Additional Instructions: Please take Eliquis 10 mg (2 tablets) twice daily for 5 days, thereafter reduce the dose to 5 mg (1 tablet) twice daily going forward. Please take aspirin 81 mg daily for the next 5 days and then discontinue. Please take Plavix 75 mg p.o. daily every day, this medication is not to be discontinued. After 5 days, you will remain on a combination of Eliquis and Plavix for your heart and lung blood clot. Discharge Attestations Time Spent in Discharge Care*: greater than 30 min Quality Metrics Clinical Quality Measures [ No reported AMI, CVA or VTE this stay] Coding Level of Care Code Acute Code for Chg Fwd Diagnoses Ischemic congestive cardiomyopathy I25.5; I42.0 Atherosclerosis of [place] coronary artery of [place] heart without angina pectoris I25.10 Coronary Disease-Associated Artery/Lesion type: [place] artery Multiple subsegmental pulmonary emboli without acute cor pulmonale I26.94 Pulmonary embolism type: multiple subsegmental (without acute cor pulmonale) Chronic hypertension I10 End stage kidney disease N18.6
== END 2024-08-22 14:30 | disposition home or self-care (01) | DRG 321 ==
LOC: ER 15:27 → ICU 16:32
PROVIDERS: Hospitalist; Internal Medicine; Internal Medicine Cardiovascular Disease; Internal Medicine Nephrology; Admitting Provider Student in an Organized Health Care Education/Training Program; Emergency Provider Student in an Organized Health Care Education/Training Program; PCP Family Medicine; Visit Provider Student in an Organized Health Care Education/Training Program
PROC: 027034Z Dilation of Coronary Artery, One Artery with Drug-eluting Intraluminal Device, Percutaneous Approach (ICD-10-PCS; principal; 2024-08-21 06:00)
PROC: 027034Z Dilation of Coronary Artery, One Artery with Drug-eluting Intraluminal Device, Percutaneous Approach (ICD-10-PCS; 2024-08-21 06:00)
DX: I25.10 Atherosclerotic heart disease of native coronary artery without angina pectoris (principal); I26.94 Multiple subsegmental thrombotic pulmonary emboli without acute cor pulmonale; J96.21 Acute and chronic respiratory failure with hypoxia; J18.9 Pneumonia, unspecified organism; N18.6 End stage renal disease; I50.32 Chronic diastolic (congestive) heart failure; I13.0 Hypertensive heart and chronic kidney disease with heart failure and stage 1 through stage 4 chronic kidney disease, or unspecified chronic kidney disease; Z99.2 Dependence on renal dialysis; D63.1 Anemia in chronic kidney disease; Z79.899 Other long term (current) drug therapy; Z79.4 Long term (current) use of insulin; Z87.891 Personal history of nicotine dependence; E11.22 Type 2 diabetes mellitus with diabetic chronic kidney disease; I25.5 Ischemic cardiomyopathy; Z95.1 Presence of aortocoronary bypass graft; F32.A Depression, unspecified; Z86.73 Personal history of transient ischemic attack (TIA), and cerebral infarction without residual deficits
CPT/HCPCS: 36415; 36416; 36600; 71045; 71275; 80053; 80069; 80202; 82274; 82310; 82803; 82962; 83605; 83735; 83880; 83970; 84100; 84484; 84550; 85025; 85049; 85347; 85730; 86706; 87040; 87077; 87150; 87186; 87205; 87340; 87637; 90935; 93005; 93306; 93455; 93458; 93970; 94640; 94660; 94760; 96365; 96366; 96367; 96372; 96374; 96375; 96376; 99152; 99153; 99291; C1725; C1760; C1769; C1874; C1887; C1894; C9600; G0269; J0360; J0692; J1644; J1815; J2250; J3010; J3370; J3372; J3490; J7030; J7050; J7613; J9999; Q0163; Q3014; Q5105; Q9967

== ENCOUNTER 2024-09-19 14:13 | Oncology outpatient (recurring) (ONCR) | payer MEDICARE, SELFPAY ==
[2024-09-19 15:27] LABS: Basophils # 0.1 10^3/uL (0.0-0.1); Basophils % 1.2 %; Eosinophils # 0.3 10^3/uL (0.0-0.8); Eosinophils % 4.5 %; Hematocrit 41.1 % (37-53); Lymphocytes % 15.2 %; Mean Corpuscular HGB Conc 31.1 g/dL (30-55); Mean Corpuscular Hemoglobin 29.2 pg (27-33); Mean Corpuscular Volume 93.6 fl (82-101); Mean Platelet Volume 9.6 fL (7.4-10.4); Monocytes # 0.6 10^3/uL (0.2-0.9); Monocytes % 8.3 %; Neutrophils # 4.69 10^3/uL (1.8-7.7); Neutrophils % 70.5 %; Nucleated Red Blood Cells % 0 %; Platelet Count 160 10^3/cmm (157-399); Red Blood Count 4.39 10^6/uL (3.85-5.65); White Blood Count 6.65 10^3/uL (3.29-11.43)
[2024-09-19 15:29] LABS: Reticulocyte % 3.4 % (0.5-2.0)
[2024-09-19 15:48] LABS: Alanine Aminotransferase 7 U/L (0-41); Alkaline Phosphatase 62 U/L (40-130); Anion Gap 19.2 (5-19); Aspartate Amino Transferase 13 U/L (0-40); Blood Urea Nitrogen 25 mg/dL (6-20); Calcium 9.8 mg/dL (8.5-10.5); Carbon Dioxide 26 mmol/L (22-29); Chloride 98 mmol/L (98-107); Globulin 3.7 g/dL (1.3-4.6); Glomerular Filtration Rate 16.4 mL/min (90-130); Glucose 138 mg/dL (65-115); Iron 42 ug/dL (59-158); Lactate Dehydrogenase 177 U/L (135-225); Osmolality Calculated 295 mOsm/kg (285-295); Percent Saturation 28.1 % (20-50); Potassium 4.2 mmol/L (3.5-5.1); Sodium 139 mmol/L (136-145); Total Bilirubin 0.8 mg/dL (0.15-1.2); Total Iron Binding Capacity 149 mcg/dl; Total Protein 7.7 g/dL (6.6-8.7); Unsaturated Iron Binding 107 ug/dL (112-347)
[2024-09-19 16:03] LABS: Ferritin 1274 ng/mL (30-400); Vitamin B12 534 pg/mL (232-1245)
[2024-09-19 16:35] LABS: Folate Level 18.9 ng/mL (4.5-32.2)
[2024-09-20 16:49] LABS: Anti-Nuclear Antibody Screen NEGATIVE (NEGATIVE)
[2024-09-21 02:20] LABS: CARDIOLIPIN AB (IGA) 3.3 APL-U/mL; CARDIOLIPIN AB (IGG) <2.0 GPL-U/mL; CARDIOLIPIN AB (IGM) <2.0 MPL-U/mL
[2024-09-21 16:35] LABS: Erythropoietin 98.7 mIU/mL (2.6-18.5)
[2024-09-21 17:16] LABS: Lupus DRVVT Confirm NEGATIVE (NEGATIVE); Lupus Hexagonal Phas Confirm WEAKLY POSITIVE (NEGATIVE); Lupus Thrombin Clotting Time 19 sec (13-19)
[2024-09-21 17:30] LABS: PTT-LA-Screen 59 sec (< OR = 40)
[2024-09-22 21:04] LABS: Antithrombin III Activity 89 % normal (80-135)
[2024-09-22 23:14] LABS: PROTEIN C, ACTIVITY 136 % normal (70-180)
[2024-09-23 06:39] LABS: Beta 2 Glycoprotein IGA <2.0 U/mL (<20.0); Beta 2 Glycoprotein IGG <2.0 U/mL (<20.0); Beta 2 Glycoprotein IGM <2.0 U/mL (<20.0)
[2024-09-26 20:10] LABS: PROTHROMBIN (FACTOR II) 20210G NEGATIVE
== END 2024-10-08 23:59 | disposition home or self-care (01) ==
LOC: ONCMED 14:14
PROVIDERS: PCP Family Medicine; Visit Provider Internal Medicine
DX: I26.94 Multiple subsegmental thrombotic pulmonary emboli without acute cor pulmonale (principal); N18.6 End stage renal disease; D64.9 Anemia, unspecified; E11.9 Type 2 diabetes mellitus without complications; I25.10 Atherosclerotic heart disease of native coronary artery without angina pectoris; Z79.899 Other long term (current) drug therapy; Z99.2 Dependence on renal dialysis; Z79.01 Long term (current) use of anticoagulants
CPT/HCPCS: 36415; 80053; 82607; 82668; 82728; 82746; 83010; 83540; 83550; 83615; 85025; 85045; 85210; 85300; 85303; 85378; 85613; 85730; 86038; 86146; 86147; 99204

== ENCOUNTER 2024-10-09 05:00 | Outpatient (RCR) | payer MEDICARE, SELFPAY | END 2024-11-08 23:59 | disposition home or self-care (01) | LOC: SPT 05:00 | PROVIDERS: PCP Family Medicine; Visit Provider Student in an Organized Health Care Education/Training Program | DX: I24.1 Dressler's syndrome (principal); I48.20 Chronic atrial fibrillation, unspecified; Z79.01 Long term (current) use of anticoagulants; I12.0 Hypertensive chronic kidney disease with stage 5 chronic kidney disease or end stage renal disease; N18.6 End stage renal disease; Z99.2 Dependence on renal dialysis; Z09 Encounter for follow-up examination after completed treatment for conditions other than malignant neoplasm; F12.90 Cannabis use, unspecified, uncomplicated; Z95.1 Presence of aortocoronary bypass graft; Z86.718 Personal history of other venous thrombosis and embolism | CPT/HCPCS: 99214 ==

== ENCOUNTER 2024-10-13 12:03 | Inpatient (IN) | payer MEDICARE, SELFPAY ==
--- OUTSIDE RECORDS SUMMARY | 2022-06-22 04:00 | XMS_ITS | Continuity of Care Document ---
Author Organization [facility] Address [address] [id number] [address] Phone Care Team Providers Care Software Applications Designer Name Role Phone Ne Burton Unavailable Unavaila [...] Workaround OFFICE/OUTPATIENT VISIT EST DIS SITE TELE [facility] Resin-Based Composite Two Surfaces, Anterior Resin-Based Composite [...] Diagnoses Date Provider Providers Copied on Encounter [facility], [id number]- [facility], [place], [place], [address], [place] tel:[phone] [facility] No Information 3 Aniceto Olivia. [address], [place], [address], [place]. tel:[phone] [facility], [id number] 5687[place], [address], [place] tel:[phone] Family Medicine F1 No Information 2 Aniceto Olivia. [address], [place], [address], [place]. tel:[phone] [facility], [address]xbk[address] 8278386VUCle[place], [address], [place] tel:[phone] [facility] No Information 2 Holtmtrinidader Ne. [address], [place], [address], [place]. tel:[phone] Referring Provider: Ne Moreland, [address] [place], [address]. tel:[phone] [facility], [id number] 6872540NO- [place], [address], [place] tel:[phone] [facility] No Information 2 Aniceto Hiie. [address], [place], [address], [place]. tel:[phone] [facility], [id number] 0461907TS- [place], [address], [place] tel:[phone] [facility] Other specified counseling 2 Roger Dominguez. [address], [place], [address], [place]. tel:[phone] Referring Provider: Angelica Adamsonney, [address] [place], [address]. tel:[phone] [facility], [address]om[address] 8724935[place], [address], [place] tel:[phone] [facility] No Information 2 Elton Wellington. [address] [place], [address], [place]. tel:[phone] Referring Provider: Eliz Lentz, [address] [place], [address]. tel:[phone] [facility], [id number] 9258940ZHClear [place], [address], [place] tel:[phone] [facility] No Information 2 Aniceto Olivia. [address], [place], [address], [place]. tel:[phone] Referring Provider: Ne Moreland, [address] [place], [address]. tel:[phone] [facility], [address] 7934758EGClear [place], [address], [place] tel:[phone] [facility] No Information 2 Aniceto Olivia. [address], [place], [address], [place]. tel:[phone] Referring Provider: Ne Moreland, [address] [place], [address]. tel:[phone] [facility], [id number] 3298485SN- [place], [place], [address], [place] tel:[phone] [facility] No Information 2 Robert Raman. [address] [place], [address], [place]. tel:[phone] Referring Provider: Danisha Lentz, [address] [place], [address]. tel:[phone] [facility], [address] Offpr[address]U5 8321494NR- [place], [address], [place] tel:[phone] [facility] No Information 2 Moralesnnenstie kenny Raman. [address] [place], [address], [place]. tel:[phone] Referring Provider: Danisha Lentz, [address] [place], [address]. 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 [address] [place], [place], [address], [place]. tel:[phone] Referring Provider: Ne Moreland, [address] [place], [address]. tel:[phone] [facility], [id number] [facility], [place], [place], [address], [place] tel:[phone] [facility] No Information 1 Robert Raman. [address] [place], [address], [place]. tel:[phone] Referring Provider: Danisha Lentz, [address] [place], [address]. tel:[phone] OFFICE/OUTPA TIENT VISIT [facility], [id number] 6638656EMClear [place], [address], [place] tel:[phone] [facility] Follow Up of HTN (chief complaint)hy pertension (chief complaint) Essential (primary) hypertension Hyperlipidem iaType 2 diabetes mellitus with diabetic neuropathy, unsp 1 Aniceto Olivia. [address] [place], [place], [address], [place]. tel:[phone] Referring Provider: Ne Moreland, [address] [place], [address]. tel:[phone] [facility], [address] Biwvr[address]1 3315757TADun[place], [place], [address], [place] tel:[phone] [facility] Encounter for dental exam and cleaning w/o abnormal findings 1 Robert Raman. [address] [place], [address], [place]. tel:[phone] Referring Provider: Danisha Lentz, [address] [place], [address]. tel:[phone] OFFICE/OUTPA TIENT VISIT, [facility], [address] [id number] 6855327CIClear [place], [address], [place] tel:[phone] [facility] hypertension (chief complaint)tr acheotomy (chief complaint) History of tracheostomy Essential (primary) hypertension Decreased stamina 1 Aniceto Olivia. [address], [place], [address], [place]. tel:[phone] Referring Provider: Ne Moreland, [address] [place] [address], [address]. tel:[phone] [facility], [address] Pofwr[address]P0 7641288GZDuncan, [place], [address], [place] tel:[phone] [facility] No Information 1 Aniceto Olivia. [address] [place] [address], [id number], [place]. tel:[phone] OFFICE/OUTPA TIENT VISIT, [facility], [address] Kuxbr178H1 5108398BMClear [place], [place], [address], [place] tel:[phone] [facility] Establish care (chief complaint) Type 2 diabetes mellitus with diabetic neuropathy, unspEssentia l (primary) hypertension Hyperlipidem iaCKD (chronic kidney disease) requiring chronic dialysisDepe ndence on renal dialysisEnco unter to establish careAnxiety disorder, unspecifiedH istory of non-ST elevation myocardial infarction (NSTEMI)H/O coronary artery bypass surgeryBilat eral lower extremity edemaAtheros clerosis of match-e-be-nash-she-wish band coronary artery of match-e-be-nash-she-wish band heart with unstable angina pectorisChro nayan combined systolic (congestive) and diastolic (congestive) heart failureCereb rovascular accident (CVA) of basal gangliaChron ic kidney disease, stage 5, kidney failure 1 Aniceto Olivia. [address] [place] [address], [id number], [place]. tel:[phone] Referring Provider: Ne Moreland, [address] [place] [address], [address]. tel:[phone] [facility], [address]pouu[address]T2 1887499KC- [place], [place], [address], [place] tel:[phone] [facility] Encounter for dental exam and cleaning w/o abnormal findings 0 Facundo Luna. [address] [place], [address], [place]. tel:[phone] Referring Provider: Cheryl Loredo, [address] [place], [address]. tel:[phone] [facility], [address] [id number] 7515871SY- [place], [place], [address], [place] tel:[phone] [facility] Encounter for dental exam and cleaning w/o abnormal findings 0 Robert Raman. [address] [place], [address], [place]. tel:[phone] Referring Provider: Danisha Lentz, [address] [place], [address]. tel:[phone] OFFICE/OUTPA TIENT VISIT EST [facility], [address] [id number] [id number]- [place], [place], [address], [place] tel:[phone] Family Medicine F1 Follow Up of diabetes (chief complaint)Fo llow Up of hypertension (chief complaint) Type 2 diabetes with hyperglycemi aHypertensiv e urgencyAnxie ty disorder, unspecifiedH yperlipidemi aType 2 diabetes mellitus with diabetic neuropathy, unsp 8 No Information [facility], [address] [id number] 9604928TR- [place], [place], [address], [place] tel:[phone] Family Medicine F1 Type 2 diabetes mellitus with diabetic neuropathy, unsp 8 No Information [facility], [address] [id number]- [place], [place], [address], [place] tel:[phone] Family Medicine F1 Type 2 diabetes mellitus with diabetic neuropathy, unsp No Information OFFICE/OUTPA TIENT VISIT, [facility], [address] [id number]- [facility], [place], [place], [address], [place] tel:[phone] Family Medicine F1 Est Pt (chief complaint)di abetes (chief complaint)hy pertension (chief complaint) Type 2 diabetes mellitus with diabetic neuropathy, unspEssentia l (primary) hypertension Anxiety disorder, unspecified No Information [facility], [address] [id number] 7446558LC- [place], [place], [address], tel:[phone] Family Medicine F1 No Information René Davis. [address], [place], [address], [place]. tel:[phone] Referring Provider: Ryan Merritt, [address] [place], [address]. tel:[phone] Family History Family Member Type Diagnosis Age [...] Provider Payers Payer name Insurance type Covered constitution party ID Nolberto augustine(s) Liane Medicare PPS MB [id number] M [place] Medicaid [id number] Social History Type Description Quantity Date Captured Comments Sex Male Smoking Status No Information Sexual Orientation Heterosexual Gender Identity Male Chief Complaint And Reason For Visit No Information Reason For Referral Reason For Referral No Information Plan Of Treatment Date Type Action Status Goal Tobacco cessation counseling completed Referral Ordered: Referrals: Outpatient OT for driving assessment. Location: [facility] Evaluate and treat. Diagnostic testing ordered Referral Ordered: Referrals: Otolaryngology. Location: [place]. Evaluate and treat ordered History Of Present [...] intubation needed for a few weeks at [facility] due to pneumonia. This was removed while at [facility] in [place]. 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 Pt see cardiology at [facility] at [place].Pt seeing Dr. Rojas at [facility] and has dialysis at home with equipment and testing at [facility]. Pt is on the transplant list at [facility] in .Pt has been recommended to see [...] heart failure See #2 above. Related to Chron ic kidney disease, stage 5, kidney failure Pt would like referr al for driving evaluation sent to [place]. Pt will be notified of results. POC will be discussed further at that time.Referral for neurology will be sent to [place] for F/U of stroke.Call sooner with questions or concerns. Related to Cerebrovascular accident (CVA) of basal ganglia See #2 above. Related to Histo ry of non-ST elevation myocardial infarction (NSTEMI) TELEHEALTH This visi t was conducted with the use of interactive audio and video telecommunications system which permits real-time, two -way communication between the patient and the provider. The patient has given consent for this visit. Patient is located at- home Provider is located at [facility]10 minutesPt to start buspirone 5mg BID.Continue other [...] diabetes mellitus with diabetic neuropathy, unsp See #1 above. Related to Hyper lipidemia HTN well controlled on current medications. Continue [...] or concerns. Related to Essential (primary) hypertension Hypertension education Related t o Essential (primary) hypertension Weight control education Related to Essential (primary) hypertension See #2 above. 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 Related to History of tracheostomy Pt had F/U with card iology last [...] or concerns. Related to Essential (primary) hypertension Hypertension education Related t o Essential (primary) hypertension Weight control education Related to Essential (primary) hypertension Continue atorvastati n as prescribed.DEBORAH signed for previous PCP. Will review labs.. F/U in 6 months.Call sooner with questions or concerns. Related to Hyperlipidemia DEBORAH signed for previ ous providers and [...] 07/2019 Related to Encounter to establish care HTN well controlled on current medications. Continue as prescribed.Pt to continue F/U with cardiology at [place].. Lifestyle modification education completed: encouraged to decrease [...] to continue F/U w kemal Rojas at [facility].Call sooner with questions or concerns. Related [...]
[2024-10-13] VITALS (49 sets, daily range): BP systolic 116–184; BP diastolic 78–119; PULSE 64–83; RESP 12–37; TEMP 36.4–37; O2SAT 86–100; BMI 22.4
--- NOTE | 2024-10-13 12:09 | CTR_ITS ---
PROCEDURE INFORMATION: Exam: CTA Chest With Contrast Exam date and time: 10/13/2024 12:31 PM Age: 44 years old Clinical indication: Dyspnea and shortness of breath; Prior surgery; Surgery date: 6+ months; Surgery type: Cabg, dialysis cath; Additional info: Dyspnea, esrd no need to wait for renal function TECHNIQUE: Imaging protocol: Computed tomographic angiography of the chest with contrast. Exam focused on the arteries. 3D rendering (Not supervised by radiologist): MIP and/or 3D reconstructed images were created by the technologist. Radiation optimization: All CT scans at this facility use at least one of these dose optimization techniques: automated exposure control; mA and/or kV adjustment per patient size (includes targeted exams where dose is matched to clinical indication); or iterative reconstruction. Contrast material: OMNIPAQUE 350; Contrast volume: 60 ml; Contrast route: INTRAVENOUS (IV); COMPARISON: CT angio chest PE protcl [id number] 08/16/2024 2:06 PM RADIATION DOSE METRICS: Total DLP (mGy-cm): 483.04 FINDINGS: Tubes, catheters and devices: Multiple cutaneous devices, causing artifact at the lung bases. There are sternal wires consistent with previous sternotomy incision. Pulmonary arteries: No pulmonary emboli in the major pulmonary arteries. Aorta: Mild atheromatous disease. No aortic aneurysm. No aortic dissection. Lungs: Multifocal patchy consolidations in both lungs, more pronounced on the right side. Pleural spaces: Bilateral small pleural effusions. Heart: Unremarkable. No cardiomegaly. No pericardial effusion. Coronary arteries: There is severe atherosclerotic calcification of the coronary arteries. Lymph nodes: Reactive mediastinal lymph nodes measuring up to 1.4 x 3.1 cm in the subcarinal space. Bones/joints: The thoracic spine demonstrates mild degenerative changes at multiple levels. Severe compression deformity of the L1 vertebral body. Soft tissues: There is nonspecific gynecomastia. CT/CT angio chest PE protcl [id number] IMPRESSION: 1. No pulmonary embolism. 2. Multifocal consolidation, suggestive of pneumonia.
--- NOTE | 2024-10-13 12:09 | XRR_ITS ---
PROCEDURE INFORMATION: Exam: XR Chest Exam date and time: 10/13/2024 12:36 PM Age: 44 years old Clinical indication: Dyspnea TECHNIQUE: Imaging protocol: Radiologic exam of the chest. Views: 1 view. COMPARISON: CT angio chest PE protcl [id number] 10/13/2024 12:31 PM FINDINGS: Tubes, catheters and devices: There are sternal wires consistent with previous sternotomy incision. Multiple devices are seen overlying the chest. Lungs: Multifocal patchy consolidations, more pronounced on the right side. Pleural spaces: No pleural effusion. No pneumothorax. Heart/Mediastinum: Unremarkable. No cardiomegaly. Bones/joints: Mild degenerative disease of bilateral acromioclavicular joints. There are mild degenerative changes of the glenohumeral joint. Deformity of the left proximal humerus. XR/XR chest 1V [id number] IMPRESSION: Multifocal patchy consolidations, suggestive of pneumonia.
--- OUTSIDE RECORDS SUMMARY | 2024-10-13 12:09 | XMS_ITS | Data Portability ---
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 Plan of Treatment Reminders Order Date Submit Date Provider Last Modified By Organization Details Last Modified Time Details Appointments OFFICE VISIT 15 2024 01:45P M Alex Moe MD Not available Not available Not available OFFICE VISIT 15 2024 02:30P M Alex Moe MD Not available Not available Not available Lab None recorded. Referral occupatio nal therapist referral [address] [facility], [address] [facility], [place], [address], 10/20/2023 11:50:13 physical therapist referral [address] [facility], [address] [facility], [place], [address], 10/20/2023 11:50:13 Procedures None recorded. Surgeries None recorded. Imaging None recorded. Medication Orders loperamid e 2 mg tablet 2023 024 [facility], [address], [place], [address], 02/01/2024 08:41:54 hydrocodo ne 5 mg-acetam inophen 325 mg tablet 2023 ESDARS [facility], [address], [place], [address], 02/01/2024 10:08:57 venlafaxi ne ER 150 mg capsule,e xtended release 24 hr 2023 024 dcrase [facility], [address], [place], [address], 09/12/2023 16:08:44 Patient TargetsNo targets recorded. Patient InstructionsNo instructions recorded. Reason for Referral Physical Therapist Referral for Impaired mobility Referring Physician: Alex Moe [facility] Medicine, Encounter Date: 09/12/2023 Occupational Therapist Refer ral for History of cerebrovascular accident Referring Physician: Alex Moe [facility], Encounter Date: 09/12/2023 Problems Name Problem SNOMED Code Status Onset Date Resolution Date Notes Provider Name and Address Organization Details Recorded Time Essential hypertensio n 73509638 Active 2023 ANGELITO webster [facility] 14:59:35 Heart disease 79740094 Active 2023 ANGELITO webster [facility] 14:59:48 Myocardial infarction 00629536 Active 2023 ANGELITO webster [facility] 4 15:00:05 Cerebrovasc ular accident 993827960 Active 2023 ANGELITO webster [facility] 15:00:20 Chronic kidney disease 429654390 Active 2023 ANGELITO webster [facility] 4 15:00:41 Depressive disorder 35432111 Active 2023 ANGELITO webster [facility] 4 17:11:56 Hematoma of lower leg 458905673 Active 2023 Alex Moe MD [address] [place] [address], [phone], [facility] 4 14:37:43 Chronic diarrhea 928177702 Active 2023 ANGELITO webster [facility] 4 17:11:52 Hypertensiv e heart and renal disease with (congestive ) heart failure 503727988 Active 2023 ANGELITO webster [facility] 4 17:12:02 Coronary atheroscler osis 379106677 Active 2023 Alex Moe MD [address] [place] [address], [phone], [facility] 5 09:34:12 Type 1 diabetes mellitus 08265142 Active 2023 ANGELITO webster [facility] 4 17:12:34 Sepsis 29751407 Active 2023 Alex Moe MD [address] [place] [address], [phone], [facility] 4 17:33:45 Physical decondition ing 4354937443410 2 Active 2023 Alex Moe MD [address] [place] [address], [phone], [facility] 4 11:08:36 Open wound of foot 138623310 Active 2023 Alex Moe MD [address] [place] [address], [phone], [facility] 4 11:09:09 Pneumonia 739272346 Active 2024 Alex Moe MD [address] [place], [phone], [facility], Carmen 5 09:33:25 Pulmonary thromboembo lism 532415517 Active 2024 Alex Moe MD [address] [place], [phone], [facility], LCarla 5 09:33:34 Problem Notes None recorded. Procedures Surgical History Date Name Laterality Status Provider Name and Address Organization Details Recorded Time 5 Stent completed [facility], Carmen 08/27/2024 11:25:03 [facility] 15:54:03 coronary artery bypass grafts x 4 completed [facility] 09/12/2023 15:54:55 Imaging Results None recorded. Procedure Notes None recorded. Medical Equipment None Reported. Allergies No known drug allergies Medications Name Sig Start Date Stop Date Status Note LastModified by Organization Details LastModified Time fluconazole 100 mg tablet TAKE 1 TABLET BY MOUTH ONCE DAILY active Not Available Not Available No t Available buspirone 5 mg tablet TAKE 1 TABLET BY MOUTH THREE TIMES DAILY active Not Available Not Available No t Available megestrol 400 mg/10 mL (40 mg/mL) oral suspension TAKE 1ML BY MOUTH TWICE A DAY 08/27 completed Not Available Not Available Not Available carvedilol 25 mg tablet TAKE 2 TABLETS BY MOUTH THREE TIMES DAILY active Not Available Not Available No t Available clonidine HCl 0.1 mg tablet Take 1 tablet twice a day by oral route as directed. 01/31 completed take 0.5mg BID and 1mg at night . Not Available Not Available Not Available venlafaxine ER 75 mg capsule,ext ended release 24 hr TAKE 1 CAPSULE BY MOUTH THREE TIMES DAILY 01/31 completed Not Available Not Available Not Available doxycycline hyclate 100 mg capsule TAKE 1 CAPSULE BY MOUTH TWICE DAILY FOR 7 DAYS 08/27 completed Not Available Not Available Not Available venlafaxine 75 mg tablet TAKE 1 TABLET BY MOUTH THREE TIMES DAILY 08/27 completed Not Available Not Available Not Available bumetanide 2 mg tablet TAKE 1 TABLET BY MOUTH ONCE DAILY ON NON-DIAL active Not Available Not Available No t Available loperamide 2 mg capsule TAKE 1 CAPSULE BY MOUTH IN THE MORNING AND 3 IN THE EVENING active Not Available Not Available No t Available azithromyci n 250 mg tablet TAKE 1 TABLET BY MOUTH ONCE DAILY FOR 5 DAYS 08/27 completed Not Available Not Available Not Available hydrocodone 5 mg-acetamin ophen 325 mg tablet TAKE 1 TABLET BY MOUTH EVERY 8 HOURS NEEDED FOR PAIN FOR 7 DAYS 01/31 completed Not Available Not Available Not Available sodium bicarbonate 325 mg tablet TAKE 1 TABLET BY MOUTH EVERY DAY active Not Available Not Available No t Available lisinopril 20 mg tablet TAKE 1 TABLET BY MOUTH ONCE DAILY active Not Available Not Available No t Available ondansetron HCl 4 mg tablet 08/27 completed Not Available Not Available Not Available clonidine HCl 0.3 mg tablet TAKE ONE TABLET BY MOUTH THREE TIMES A DAY active Not Available Not Available No t Available loperamide 2 mg tablet Take 2 tablets at the onset of diarrhea, may repeat with loose stools. No more than 8 pills in a day. 01/31 completed Not Available Not Available Not Available venlafaxine ER 150 mg capsule,ext ended release 24 hr TAKE 1 CAPSULE BY MOUTH ONCE DAILY active Not Available Not Available No t Available nifedipine ER 30 mg tablet,exte nded release TAKE 1 TABLET BY MOUTH ONCE DAILY active Not Available Not Available No t Available clopidogrel 75 mg tablet TAKE 1 TABLET BY MOUTH ONCE DAILY FOR 30 DAYS active Not Available Not Available No t Available amlodipine 5 mg tablet TAKE 1 TABLET BY MOUTH ONCE DAILY IN THE EVENING active Not Available Not Available No t Available minoxidil 2.5 mg tablet Take 1 tablet twice a day by oral route. active Not Available Not Available No t Available aspirin 81 mg tablet,laura yed release Take 1 tablet every day by oral route. active Not Available Not Available No t Available oxycodone-a cetaminophe n 10 mg-325 mg tablet TAKE ONE TABLET BY MOUTH EVERY 6 HOURS NEEDED FOR PAIN for SEVEN DAYS 08/27 completed Not Available Not Available Not Available furosemide 80 mg tablet TAKE 1 TABLET BY MOUTH TWICE A DAY active Not Available Not Available No t Available doxycycline monohydrate 100 mg capsule 01/31 completed Not Available Not Available Not Available cephalexin 500 mg capsule TAKE 1 CAPSULE BY MOUTH TWICE DAILY FOR 5 DAYS 01/31 completed Not Available Not Available Not Available hydralazine 100 mg tablet TAKE 1 TABLET BY MOUTH THREE TIMES DAILY active Not Available Not Available No t Available pantoprazol e 40 mg tablet,laura yed release TAKE 1 TABLET BY MOUTH EVERY DAY active Not Available Not Available No t Available ropinirole 0.5 mg tablet TAKE 1 TABLET BY MOUTH EVERY NIGHT active Not Available Not Available No t Available warfarin 5 mg tablet Take 1 tablet every day by oral route. 2024 active Not Available Not Available Not Avai lable megestrol 40 mg tablet TAKE ONE TABLET BY MOUTH TWICE A DAY active Not Available Not Available No t Available gentamicin 0.1 % topical cream APPLY DAILY AFTER CLEANING SITE 01/31 completed Not Available Not Available Not Available mirtazapine 15 mg tablet TAKE 1/2 TABLET BY MOUTH ONCE A DAY IN THE EVENING active Not Available Not Available No t Available gabapentin 100 mg capsule TAKE 2 CAPSULES BY MOUTH IN THE EVENING AND 1 AT BEDTIME active Not Available Not Available No t Available Requip 0.25 mg tablet Take 1 tablet every day by oral route. active Not Available Not Available No t Available cefdinir 300 mg capsule TAKE 1 CAPSULE BY MOUTH THREE TIMES WEEKLY, TAKE AFTER DIALYSIS 08/27 completed Not Available Not Available Not Available doxycycline hyclate 100 mg tablet TAKE 1 TABLET BY MOUTH TWICE DAILY FOR 10 DAYS 09/11 completed Not Available Not Available Not Available calcitriol 0.25 mcg capsule TAKE 3 CAPSULES BY MOUTH ONCE A DAY active Not Available Not Available No t Available Novolog FlexPen U-100 Insulin aspart 100 unit/mL (3 mL) subcutaneou s INJECT 15 UNITS SUBCUTANE OUSLY (UNDER THE SKIN) THREE TIMES DAILY WITH MEALS 01/31 completed Not Available Not Available Not Available sevelamer carbonate 800 mg tablet TAKE 2 TABLETS BY MOUTH WITH THE LARGEST MEAL OF THE DAY AND 1 TABLET WITH OTHER MEALS (4 TABLETS TOTAL PER DAY) active Not Available Not Available No t Available Humalog KwikPen (U-100) Insulin 100 unit/mL subcutaneou s INJECT 15 UNITS SUBCUTANE OUSLY (UNDER THE SKIN) THREE TIMES DAILY WITH MEALS active Not Available Not Available No t Available sevelamer carbonate take with meals 01/31 completed Not Available Not Available Not Available Xarelto 15 mg tablet Take 1 tablet every day by oral route. 2024 active Not Available Not Available Not Avai labmaria fernanda Eliqujennifer DVT-PE Treatment 30-Day Starter 5 mg (74 tablets) in dose pack TAKE DIRECTED 10/04 completed Not Available Not Available Not Available RenaPlex-D 800 mcg-12.5 mg-2,000 unit tablet TAKE 1 TABLET BY MOUTH EVERY DAY (ON DIALYSIS DAYS, TAKE AFTER DIALYSIS TREATMENT ) active Not Available Not Available No t Available insulin glargine (U-100) 100 unit/mL (3 mL) subcutaneou s pen, sensor Inject 10 units every day by subcutane ous route at bedtime. active Not Available Not Available No t Available Vitals Date Recorded Body height Provider Name an d Address Organization Details Last Updated DateTime 08/27/2024 182.88 cm [facility] 08/27/2024 11:18:05 Date Recorded Oxygen saturation Oxygen saturation in Arterial blood by Pulse oximetry Heart rate Body temperature Systolic And Diastolic Provider Name and Address Organization Details Last Updated DateTime 5 94 % 94 % 71 /min 97.6 [degF] 174/100 mm[Hg] [facility] 5 11:29:12 Date Recorded Body weight Body temperature Oxygen saturation Oxygen saturation in Arterial blood by Pulse oximetry Heart rate Systolic And Diastolic Provider Name and Address Organization Details Last Updated DateTime 4 76118.3 7 g 97.3 [degF] 98 % 98 % 71 /min 134/82 mm[Hg] [facility] 4 15:47:32 Date Recorded Body temperature Body weight Body mass index (BMI) Body height Oxygen saturation Oxygen saturation in Arterial blood by Pulse oximetry Heart rate Systolic And Diastolic Provider Name and Address Organization Details Last Updated DateTime 4 97.4 [degF] 37832.1 5 g 22.2 kg/m2 182.88 cm 97 % 97 % 71 /min 144/82 mm[Hg] SUKHDEV DENSON [facility] 4 14:10:55 Date Recorded Body height Body temperature Oxygen saturation Oxygen saturation in Arterial blood by Pulse oximetry Heart rate Systolic And Diastolic Provider Name and Address Organization Details Last Updated DateTime 4 182.88 cm 97.8 [degF] 98 % 98 % 76 /min 148/84 mm[Hg] SUKHDEV DENSON [facility] 4 14:27:10 Date Recorded Body height Respiratory rate Body mass index (BMI) Body weight Body temperature Oxygen saturation Oxygen saturation in Arterial blood by Pulse oximetry Heart rate Systolic And Diastolic Provider Name and Address Organization Details Last Updated DateTime 4 182.88 cm 20 /min 17.4 kg/m2 10715.8 2 g 97.4 [degF] 99 % 99 % 74 /min 140/80 mm[Hg] ANGELITO MARKS [facility] 4 13:01:26 Social History Question Answer Notes LastModified by [employer] Details LastModified Time Tobacco Smoking Status Former [facility] 09/12/2023 15:52:47 What Is Your Relationship Status? Information not available 09/12/2023 Sex: Unknown Functional Status Question Answer Note LastModified by [employer] Details LastModified Time Do you use any illicit or recreational drugs? Yes medical marijuana Information not available 09/12/2023 What is your level of alcohol consumption? Occasional Information not available 09/12/2023 Are you able to care for yourself? Yes Information not available 09/12/2023 Mental Status None recorded. Family History Relationship Description Onset Age of this Age Resolved Age Notes LastModified by Organization Details LastModified Time Mother Diabetes mellitus am[place]ale Not available 2024 11:24:10 Mother Heart disease [place] Not available 2024 11:24:22 Mother Essential hypertension [place] Not available 11:24:37 Father Heart disease [place] Not available 2024 11:24:22 Father Essential hypertension [place] Not available 11:24:37 Medical History No medical history recorded. Immunizations Vaccine Type Date Status Note Provider Nam e and Address Organization Details Recorded Time Td (adult), 2 Lf tetanus toxoid, preservative free, adsorbed 6 completed [facility] Available [facility] 08[facility]24 11:14:46 pneumococcal polysaccharide PPV23 6 completed Not Available [facility] 08/27/2024 11:14:46 COVID-19, mRNA, LNP-S, PF, 100 mcg/0.5mL dose or 50 mcg/0.25mL dose 1 completed Not Available [facility] 08/27/2024 11:14:46 COVID-19, mRNA, LNP-S, PF, 100 mcg/0.5mL dose or 50 mcg/0.25mL dose 1 completed Not Available [facility] 08/27/2024 11:14:46 Past Encounters Encounter ID Performer Location Encounter Start Date Encounter Closed Date Diagnosis/Indication Diagnosis SNOMED-CT Code Diagnosis ICD10 Code Diagnosis Note [id number] Alex Moe MD [facility] ([facility]) [address] [place] [phone] 09/12/2023 15:35:17 09/12/2023 16:20:57 Depressive disorder 23467802 F32.A Will increase his venlafaxin e to 250 mg and see if this improves his mood further. Impaired mobility 375591 05 Z74.09 The patient would benefit from physical therapy and giving his underlying residual neurologic al deficits, he would also benefit from occupation al therapy. History of cerebrovascular accident 415972942 Z86.73 End stage renal failure on dialysis 457946649 Z99.2 The patient is having significan t weakness and sees his nephrologi st tomorrow. Recommend lab work, but however he will get that tomorrow through his nephrologi st [id number] Alex Moe MD [facility] ([facility]) [address] [place] [phone] 09/26/2023 13:58:05 09/26/2023 14:41:51 Hematoma of lower leg 809119868 S80.12XD Patient was reassured. Based on informatio n obtained, likely hematoma. Discussed interventi ons including warm compresses and will provide some pain medication to help with pain management . Discussed possible aspiration if needed. [id number] Alex Moe MD [facility] ([facility]) [address] [place] [phone] 12/07/2023 14:19:24 12/07/2023 15:09:18 Chronic diarrhea 536979048 K52.9 The patient does have chronic diarrhea and this is likely related to medication s. Discussed treatment for chronic diarrhea and recommend increasing fiber as he is doing a lot of protein and protein shakes. Discussed loperamide and its use and encouraged patient to use it every day if needed. Provide a prescripti on to help with cost. Continue with dialysis and other care with nephrology . Chronic ki dney disease 221352186 N18.9 Essential hypertension 74416931 I10 Depressive disorder 3548 9007 F32.A Will increase his venlafaxin e to 250 mg and see if this improves his mood further. Hypertensi ve heart and renal disease with (congestive) heart failure 059277347 I13.2 Coronary atherosclerosis 072207579 I25.119 Type 1 jackelyn betes mellitus 84037418 E10.22 [id number] Alex Moe MD [facility] ([facility]) [address] [place] [phone] 02/01/2024 12:53:48 02/01/2024 13:23:34 Sepsis 78355493 A41.9 Patient appears to have recovered from his severe infection. No further concerns at today's visit. Chronic ki dney disease 125201805 N18.5 Continue with hemodialys is. Physical deconditioning 4028456378 9102 R68.89 The patient would benefit from physical therapy for strengthen ing. Open wound of foot 77306 3008 S91.302A Patient has a wound developing on his foot and home health would be beneficial for wound care. [id number] Alex Moe MD [facility] ([facility]) [address] [place] [address], [place] [address] 08/27/2024 11:09:41 08/27/2024 11:48:06 Pneumonia 152931453 J18.9 Patient is recovering from pneumonia and has done well with antibiotic s. Pulmonary thromboembolism 192762678 I26.99 Patient is tolerating Eliquis well. Maintain follow-up with specialist . Coronary atherosclerosis 860539335 I25.10 Not currently having any chest pain after stent placement. Chronic ki dney disease 730691719 N18.5 Continue with hemodialys is. Health Concerns Section Related Observation LastModified by Organization Detai ls LastModified Time None Recorded Concern Status LastModified by Organization Details LastModified Time None Recorded Advance Directives Directive None Recorded Payers Insurance Date Sequence Insurance Name Policy Number Policy Hidalgo Covered Member ID Hidalgo Member ID Guarantor Name 08/27/2024 1 [place]/A DVANTAGE - PPO) [id number] Jose Guadalupe Claudio [id number] Jose Guadalupe Claudio Notes Date Note Type Note Provider Name and Address Organization Details Recorded Time 09/12/2023 text/html This is a 42-yea r-old gentleman that comes in today to establish care. Patient has history of end-stage renal disease and has been getting dialysis for the last 3 and half years. Patient also has had MIs and CVAs in the past. The patient has been having increasing weakness and is currently needing assistance with mobilization and is currently in a wheelchair. The patient would like to work with physical therapy. The patient also has some residual left-sided weakness and has difficulty with ADLs. Patient also has been struggling with his depression and it does not feel the venlafaxine is effective as he would like to be. Patient states he has noticed some improvement with medication but feels that it could be improved further. Alex Moe MD [address] [place], [phone], [facility], [facility] 09/13/2023 10:41:28 09/26/2023 text/html Is a 42-year-old gentleman that comes in today for ER follow-up. The patient had a spontaneously show up on his left lower leg after getting a blood transfusion. Patient was seen in the emergency room and was told it was a bruise . Patient had an ultrasound performed in the ER. She states that it is very painful but has not been getting bigger. Alex Moe MD [address] [place] [address], [phone], [facility] 09/27/2023 16:00:04 12/07/2023 text/html DiarrheaReported bypatient.Quality:soft ;loose Severity:moderate Duration:chronic (>1 month) Onset/Timing:frequent; worse in the morning; 0-6 times per day Associated Symptoms:no abdominal pain; no nausea; no vomiting; no heartburn; no blood in stool; no black or tarry stools; no dark yellow urine This is a 43-year-old gentleman seen today to discuss chronic issues with diarrhea. Patient states that he has diarrhea every day up to 6 times daily. Patient states sometimes he has trouble making it to the bathroom. The patient states that he takes loperamide and it does help but he is concerned about taking it every day. Denies any specific aggravating factors. Patient continues to do well with dialysis. Patient has injured his ankle and has difficulty with mobility but his has been very helpful for him. Alex Moe MD [address] [place] [address], [phone], [facility] 12/08/2023 13:09:42 02/01/2024 text/html This is a 43-yea r-old gentleman that comes in today for hospital follow-up. The patient had woken up with altered mental status and hallucinations. Patient was evaluated in the ER and was found to have an infection around his peritoneal dialysis catheter. Patient had his dialysis catheter removed and was treated for infection and is now doing significantly better. She has not had any further issues. States they took out the peritoneal catheter they placed a Patton catheter and he is currently getting hemodialysis. Patient denies any acute needs today. Alex Moe MD [address] [place] [address], [phone], [facility] 02/20/2024 11:09:35 08/27/2024 text/html Pt is here for I CU f/u. Pt was in for pneumonia and found a blood clot in his lung. Pt also had a stent placed on 08-21-24. Pt states that he isn't having as much labored breathing and he continues to improve. He goes in for dialysis tomorrow. No acute needs today. Patient is tolerating Eliquis without difficulties. Patient has follow-up with specialist scheduled. Alex Moe MD [address] [place] [address], [phone], [facility], Carmen 08/30/2024 09:35:23
--- OUTSIDE RECORDS SUMMARY | 2024-10-13 12:09 | XMS_ITS | Clinical Summary ---
Author Organization [facility] Address [address] [place] [address] Phone Care Team Providers Care Drain Tiler Name Role Phone Yaniv Moe MD Primary Care Provider [phone] Allergies No known active allergies Medications insulin glargine (LANTUS) 100 unit/mL injection Inject 10 Units by subcutaneous injection daily at bedtime. 15 mL 11 11/16/19 20 Active hydrALAZINE (APRESOLINE) 100 mg Tablet tablet Take 1 Tablet (100 mg) by mouth every 8 hours. 90 Tablet 0 01/14/20 20 Active cloNIDine HCL (CATAPRES) 0.3 mg tablet Take 1 Tablet (0.3 mg) by mouth every 8 hours. 90 Tablet 0 01/16/20 20 Active ergocalciferol (Vitamin D2) 50,000 unit capsule TAKE 1 CAPSULE BY MOUTH ONCE A WEEK 01/24/20 20 Active nitroglycerin (NITROSTAT) 0.4 mg Tablet, Sublingual Place 1 Tablet (0.4 mg) under tongue every 5 minutes as needed for Chest Pain. 25 Tablet 0 08/16/19 20 Active alcohol Pads, Medicated Use to clean area before injection twice a day 7 days a week 200 Each 3 08/16/19 20 Active Insulin Syringe-Needle U-100 1 mL 31 gauge x 5/16 Syringe Use to inject insulin twice a day 7 days a week. 200 Each 1 08/16/19 20 Active pantoprazole (Protonix) 40 mg Tablet, Delayed Release (E.C.) Take 1 Tablet (40 mg) by mouth daily. 30 Tablet 10/09/19 23 Active carvediloL (COREG) 25 mg tablet Take 25 mg by mouth daily. Active megestroL (MEGACE) 40 mg tablet Take 40 mg by mouth daily. Active minoxidiL (LONITEN) 2.5 mg tablet Take 2.5 mg by mouth 2 times daily. Active ondansetron (ZOFRAN) 4 mg Tablet Take 4 mg by mouth every 6 hours as needed for Nausea/Emesis. Active sevelamer carbonate (RENVELA) 800 mg Tablet Take 800 mg by mouth 3 times daily with meals. 2 tabs with high phosphorous meals Active HumaLOG KwikPen Insulin 100 unit/mL pen syringe Inject 15 Units by subcutaneous injection 3 times daily with meals. 11/24/19 24 Active gabapentin (NEURONTIN) 100 mg capsule Take 100 mg by mouth see administration instructions. 1 capsule in the AM. 3 capsules at bedtime. Active venlafaxine (EFFEXOR XR) 150 mg Extended Release 24 hour capsule Take 1 Capsule (150 mg) by mouth daily with breakfast. 30 Capsule 1 01/29/20 24 Active acetaminophen (TYLENOL) 500 mg Capsule Take by mouth. 02/23/20 24 Active bumetanide (BUMEX) 2 mg tablet Take 2 mg by mouth 2 times daily. Non dialysis days 04/24/19 25 Active busPIRone (BUSPAR) 5 mg tablet Take 1 Tablet by mouth 3 times daily. 02/04/20 24 Active lisinopriL (PRINIVIL) 20 mg tablet Take 1 Tablet by mouth daily. 02/29/20 24 Active loperamide (IMODIUM) 2 mg capsule 1 tablet in the am and 3 tablets in the PM Active methoxy peg-epoetin beta (MIRCERA INJECTION) 100 mcg. 05/08/19 25 026 Active mirtazapine (REMERON) 15 mg tablet Take 7.5 mg by mouth daily at bedtime. 07/11/19 24 Active NIFEdipine (ADALAT CC) 30 mg Extended Release tablet Take 30 mg by mouth daily. 02/23/20 24 Active rOPINIRole (REQUIP) 0.5 mg tablet Take 1 Tablet by mouth daily at bedtime. 02/04/20 24 Active calcitRIOL (ROCALTROL) 0.25 mcg capsule Take 3 Capsules by mouth daily. 04/24/19 25 Active RenaPlex-D 800 mcg-12.5 mg -2,000 unit Tablet Take 1 Tablet by mouth daily. ON DIALYSIS DAYS, TAKE AFTER DIALYSIS TREATMENT 04/17/19 Active sodium bicarbonate 325 mg tablet Take 325 mg by mouth daily. Active amLODIPine (NORVASC) 5 mg tablet Take 1 Tablet (5 mg) by mouth daily at bedtime. 30 Tablet 1 07/11/19 25 Active Active Problems Problem Noted Date Diagnosed Date ESRD on hemodialysis 07/09/2024 Pneumonia due to human coronavirus 07/09/2024 Nonadherence to medical treatment 07/09/2024 Coronavirus infection 07/09/2024 Delirium due to another medical condition 2023 Bacterial infection associat ed with peritoneal dialysis catheter 01/25/2024 Peritonitis due to fungus 01/25/2024 Delirium due to medical cond ition with behavioral disturbance 01/25/2024 Spontaneous bacterial peritonitis 01/24/2024 Moderate protein malnutrition 01/21/2024 Peritonitis 01/20/2024 ESRD on peritoneal dialysis 05/10/2022 History of stroke without residual deficits 08/09 Type 2 diabetes mellitus wit h hyperglycemia, without long-term current use of insulin 08/22/2019 Bilateral Basal Ganglia Stroke 08/02/2019 Acute bronchitis due to other specified organism s 02/20/2019 Old MS (myocardial infarction) 07/21/2018 Chronic combined systolic and diastolic heart fa ilure 04/26/2018 Bilateral leg edema 01/16/2018 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 01/03/2018 Status post coronary artery bypass grafting 12/11 Hypertensive emergency 12/26/2017 Pure hypercholesterolemia 12/26/2017 NSTEMI (non-ST elevated myocardial infarction) 0 12/26/2017 Hypertension 12/05/2014 Anxiety and depression 12/05/2014 Resolved Problems Problem Noted Date Diagnosed Date Resolved Date Acute hypoxic respiratory failure 07/09/2024 07/10/2024 Flash pulmonary edema 07/09/20242024 Acute respiratory failure with hypoxia 07/09/2024 07/10/2024 Hyperkalemia 10/27/2022 10/28/2022 Hyperphosphatemia 10/27/2022 10/28/2022 Pneumonia of right middle lo be due to infectious organism 10/25/2022 10/28/2022 Symptomatic anemia 10/08/2022 FTT (failure to thrive) in adult 09/21/2022 10/25/2022 Hypokalemia 09/21/2022 10/25/2022 Upper GI bleed 05/10/2022 10/25/2022 Cellulitis of right lower extremity 05/10/2022 10/25/2022 Nausea and vomiting 05/10/2022 10/26/19 Hematochezia 05/10/2022 10/25/2022 Acute blood loss anemia 05/10/202210/09 Leukocytosis (leucocytosis) 06/20/2020 10/25/2022 Elevated troponin 01/09/2020 10/25/2022 MERY (acute kidney injury) 01/02/2020 Anasarca 12/31/2019 10/25/2022 CKD (chronic kidney disease) stage 5, GFR less than 15 ml/min 12/19/2019 10/25/2022 Hypoalbuminemia 11/20/2019 10/25/2022 Borderline abnormal TFTs 09/19/2019 Hospital discharge follow-up 08/22/2019 10/25/2022 Sepsis due to methicillin re sistant Staphylococcus aureus (MRSA) 08/02/2019 10/25/2022 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 02/06/2018 10/25/2022 DM (diabetes mellitus) 12/26/201708/21 Tobacco abuse 03/26/2016 01/18/2018 Secondary hypertension 03/26/201610/25 Diabetes 12/05/2014 07/14/2016 Smoker 12/05/2014 12/02/2015 Diabetes mellitus type 2, un controlled, without complications 12/05/2014 01/05/2019 Acute on chronic respiratory failure with hypoxia and hypercapnia 06/22/2020 Hypervolemia 10/25/2022 Encounters Date Type Department Care Team Description 10/02/2024 External Device Data [facility] ABSTRACTION Provider, Abstract 09/11/2024 External Device Data [facility] Provider, Abstract 08/21/2024 Telephone [facility] [address] [place] [address] Provider, Abstract Needing General Surgery 08/16/2024 Telephone [facility] [place] [address] [place] [address] Esteban Bucio Appointment Notification 08/15/2024 Telephone [facility] [place] [address] [place] [address] Odette Batista MD Appointment Notification 08/14/2024 External Device Data [facility]STRACTION Provider, Abstract 08/13/2024 Telephone [facility] [place] [address] [place] [address] Odette Batista MD Surgery Talk from Last 3 Months Immunizations Immunization Administration Dates Next Due (ADACEL/BOOSTRIX)(10 YR UP) TDAP VACCINE, 0.5ML, IM 12/01/2021 (PNEUMOVAX 23)(50 YRS UP) PN EUMOCOCCAL POLYSACCHARIDE (PPV23) 0.5 ML, IM 07/12/2023 (PREVNAR 13)(6 WKS UP) PNEUM OCOCCAL CONJUGATE (PCV13) 0.5 ML, IM 02/01/2020 (SPIKEVAX) (12 YRS UP PRIMAR Y SERIES) COVID-19 VACCINE - MRNA-1273(PF) 100 MCG/0.5 ML IM SUSP 07/30/2020,06/30/2020 (TDVAX)(7 YRS UP) TETANUS AN D DIPHTHERIA TOXOIDS, ADSORBED (2 LF OF TETANUS TOXOID AND 2 LF OF DIPHTHERIA TOXOID), 0.5ML (PF), IM 05/12/2015 Hepatitis B Vaccine 06/05/2020,02/25/2020,2019 INFLUENZA VACCINE QUADRIVALE NT 6 MOS UP PF IM 12/31/2021,01/16/2021 INFLUENZA VACCINE QUADRIVALE NT RECOMB 18 YR UP PF IM 01/21/2023 Influenza Seasonal Unspecifi ed Formulation IM 08/10/2019 Influenza Vaccine Split 3+ Yrs PF IM 01/18/2020 Influenza Vaccine Tri Rcmb 18+ PF IM 02/04/2024 Pneumococcal Polysaccharide Vacc 23-taylor IM SCHIP 11/10/2015 Family History Medical History Relation Name Comments Healthy Brother 1 Other Brother 2 kidney disease Healthy Brother 3 Heart Disease Father Diabetes Mother Heart Disease Mother Hypertension Mother Stroke Mother Healthy Sister Relation Name Status Comments Brother 1 Alive Brother 2 Alive Brother 3 Alive Father Mother Sister Alive Social History Tobacco Use Types Packs/Day Years Used Date Smoking Tobacco: Former Cigarettes Q uit: 12/19/2017 Smokeless Tobacco: Never Tobacco Cessation:Counseling Given: Not Answered Alcohol Use Standard Drinks/Week Comments Yes 6 (1 standard drink = 0.6 oz pur e alcohol) Feeling Safe Answer Date Recorded Are you in a relationship wi th someone who hurts you emotionally and/or physically? No 07/09/2024 Food Insecurity Answer Date Recorded Patient needs follow up regardin 08/01/2024 Transportation Needs Answer Date Record ed Patient needs follow up regardin 08/01/2024 Housing Stability Answer Date Recorded Social/Environmental Concerns No concerns Utility Needs Answer Date Recorded Patient needs follow up regardin 08/01/2024 Sex and Gender Information Value Date Recorded Sex Assigned at Not on file Legal Sex Male 3:36 AM CITY CONTROLLER Gender Identity Not on file Sexual Orientation Not on file Last Filed Vital Signs Vital Sign Reading Time Taken Comments Blood Pressure 145/91 07/10/2024 11:10 AM CDT Pulse 75 07/10/2024 11:10 AM CDT Temperature 36.5 C (97.7 F) 07/10/2024 11:10 AM CDT Respiratory Rate 17 07/10/2024 11:10 AM CDT Oxygen Saturation 100% 07/10/2024 11:10 AM CDT Inhaled Oxygen Concentration - - Weight 70 kg (154 lb 5.2 oz) 07/10/2024 3:06 AM CDT Height 182.9 cm (6') 07/09/2024 9:30 AM CDT Body Mass Index 20.93 07/09/2024 9:30 AM CDT Plan of Treatment Scheduled Procedures Name Priority Associated Diagnoses Date/Ti me ARTERIOVENOUS FISTULA CREATION End stage renal disease (CMS/HCC) 08/27/2024 12:51 PM CDT ARTERIOVENOUS GRAFT INSERTION End stage renal disease ([facility]/HCC) 08/27/2024 12:51 PM CDT Health Maintenance Due Date Last Done Comments DIABETES ANNUAL RETINAL EXAM 10/13/1997 HEPATITIS B VACCINES (1 of 3 - Risk Dialysis 4-dose series) 1999 06/05/2020, 02/25/2020, 01/21/2020 DIABETES ANNUAL FOOT EXAM 12/01/2016 12/02/2015 DIABETES MICROALBUMIN ANNUAL SCREEN 10/22/2020 10/23/2019, 07/01/2018, 04/08/2016, Additional history exists LDL CHOLESTEROL ANNUAL 10/22/2020 0, 07/01/2018, 12/27/2017, Additional history exists COVID-19 Vaccine () 12/11/2023 07/30/2020, 06/30/2020 FIT-DNA Q 3 years 10/13/2024 FIT/FOBT Q 1 year 10/13/2024 Flex Sig/CT Colonography Q 5 years 10/13/2024 INFLUENZA VACCINE (#1) 2024 4, 01/21/2023, 12/31/2021, Additional history exists DIABETES HBA1C Q 6 MONTHS 12/15/20242024, 06/20/2020, 06/20/2020, Additional history exists DTAP/TDAP/TD VACCINES (2 - Td or Tdap) 12/02/2031 12/01/2021, 05/12/2015 COLORECTAL SCREENING 05/11/2032 05/11/2022, 05/11/19 Colorectal Cancer Screening 05/11/2032 HPV VACCINES Aged Out No longer eligi ble based on patient's age to complete this topic Medical Devices Implanted Type Area Delinquency Counselor Device Identifier Shelf Expiration Date Model / Serial / Lot Cath Dialysis Glidepath 14.5fr 23cm Std [id number]/22/[id number] 0 Implanted:Qty: 1 on 01/01/2020 by Sudha Montes MD Catheter Right: Chest CR [employer]ARD[employer] [id number] 04/10/2021 [id number] / / [id number] Cath Pd Jez Brush 2cuff [id number] - [id number] Implanted:Qty: 1 on 01/10/2020 by Adryan Witt DO Catheter N/A: Abdomen [employer] - COVIDIEN [id number] 07/08/2024 [id number] / / [id number] Cath Dialysis Glidepath 14.5fr 24cm Std [id number] - [id number] Implanted:Qty: 1 on 01/23/2024 by Willie Umaña MD at [facility] Catheter Right: Chest BARD DAGMAR VASC [id number] 07/09/2025 [id number] / / [id number] Hemostatic Surgifoam Sz100 1973 - [id number] Implanted:Qty: 1 on 12/29/2017 by Martinez Rodrigues MD Hemostatic N/A: Chest J[employer] 09/19/20211973 / / [id number] Ring Vein Marking 10mm [id number] - [id number] Implanted:Qty: 2 on 12/29/2017 by Martinez Rodrigues MD Other N/A: Chest TELEFLEX- PILL WECK LILY L P 35-1542 / / Description:scan # [id number] Sealant Fibrin Evicel 5ml 390 - [id number] Implanted:Qty: 1 on 12/29/2017 by Martinez Rodrigues MD Other N/A: Heart J[employer]J- [employer] 08/08/2020 [id number] / / [id number] [place] Ptfe Thck 1.6mmx2.5x10.2cm [id number] - [id number] Implanted:Qty: 1 on 12/29/2017 by Martinez Rodrigues MD Tissue N/A: Heart CR [employer]ARD[employer] 10/06/2022 [id number] / / [id number] Procedures Procedure Name Priority Date/Time Associated Diagnosis Comments COLONOSCOPY REPORT 05/11/2022 9: 02 AM CITY CONTROLLER HEMOGLOBIN A1C Routine 06/20/2020 9:34 AM CITY CONTROLLER MICROALBUMIN/CREATIN INE RATIO, RANDOM UR Routine 10/23/2019 12:52 PM CDT LIPID PANEL Routine 10/23/2019 12:49 PM CDT from Last 3 Months or Most Recently Relevant to Health Maintenance Results * COLONOSCOPY REPORT (05/11/2022 9:02 AM CITY CONTROLLER) Narrative Procedure Note Gwendolyn Marks MD (John) - 05/11/2022 9:01 AM CST [facility] [place] [facility] Patient Name: Jose Guadalupe Claudio Procedure Date: 05/11/2022 Date of : 1980 Admit Type: Inpatient Age: 41 Attending MD: Gwendolyn Marks MD, Procedure: Colonoscopy Indications: Melena, Rectal bleeding, Iron deficiency anemia secondary to chronic blood loss, Iron deficiency anemia Providers: Gwendolyn Marks MD Referring MD: Medicines: See the Anesthesia note for documentation of the administered medications Complications: No immediate complications. Estimated blood loss: None. Procedure: After I obtained informed consent, the scope was passed under direct vision. Throughout the procedure, the patient's blood pressure, pulse, and oxygen saturations were monitored continuously. The Colonoscope was introduced through the anus and advanced to the cecum, identified by appendiceal orifice and ileocecal valve. The colonoscopy was performed without difficulty. The patient tolerated the procedure well. The quality of the bowel preparation was good. Scope withdrawal time was 7 minutes. Findings: Internal hemorrhoids were found during retroflexion. The hemorrhoids were Grade I (internal hemorrhoids that do not prolapse). The colon (entire examined portion) was moderately tortuous. The exam was otherwise normal throughout the examined colon. Impression: - Internal hemorrhoids. - Tortuous colon. - No specimens collected. Recommendation: - consider outpatient small bowel capsule endoscopy Gwendolyn Marks MD 05/11/2022 9:00:51 AM This report has been signed electronically. Number of Addenda: 0 Note Initiated On: 05/11/2022 8:24 AM Scope Withdrawal Time Scope In: Scope Out: 100 [facility] HUSAM Mohamud us Gwendolyn Marks MD (John) GI PROCEDURE ORDERABLES Final Result * (ABNORMAL) HEMOGLOBIN A1C (06/20/2020 9:34 AM CITY CONTROLLER) HEMOGLOBIN A1C 6.1(H) <=5.6 % 06/20/2020 10:34 AM CITY CONTROLLER [facility] - [place] EST. AVG GLUCOSE, A1C 128 mg/dL 06/20/2020 10:34 AM [facility] Blood Collection / Unknown 06/20/2020 9:34 AM CITY CONTROLLER 06/20/2020 9:37 AM [facility] [place] [facility] [place] - 06/20/2020 10:34 AM CITY CONTROLLER HGB A1C INTERPRETATION NORMAL: <5.7% PRE-DIABETES: 5.7 - 6.4% DIABETES: 6.5% OR GREATER Falsely low A1C measurements can occur when: 1. Anemia and/or hemolytic anemia is present. 2. Hemoglobin variants present. 3. Renal failure. 4. Transfusion of blood product in the last 120 days. We recommend ordering a fructosamine test([id number]) to more accurately assess glycemic status if any of the above conditions are present. Savanah Garibay MD CHEMISTRY ORDERABL ES Final Result [facility] CLIA# [id number] [address] [facility] [place] [id number] [place] [address] [facility] CLIA# [id number] [address] [place] [address] * MICROALBUMIN/CREATININE RATIO, RANDOM UR (10/23/2019 12:52 PM CDT) MICROALBUMIN, URINE >440.0 No Reference Range mg/dL 10/23/2019 6:47 PM CDT [facility] CREATININE, URINE 76.4 40.0 - 278.0 mg/dL 10/23/2019 6:47 PM CDT [facility] Comment:Reference Range vari es with fluid intake and diet. Urine URINE SPECIMEN OBTAINED BY CLEAN CATCH PROCEDURE / Unknown Collection / Unknown 10/23/2019 12:52 PM CDT 10/23/2019 3:00 PM CDT [place] [facility] - 10/23/2019 6:47 PM CDT Condition Microalbumin/Creat ratio Normal Males <17 Normal Females <25 Microalbuminuria Males 17-299 Microalbuminuria Females 25-299 Overt proteinuria >=300 Savanah Garibay MD URINE ORDERABLES F inal Result [facility] CLIA# [id number] [address] [place] [address] * (ABNORMAL) LIPID PANEL (10/23/2019 12:49 PM CDT) CHOLESTEROL 137 <200 mg/dL 10/23/2019 4:25 PM CDT [facility] TRIGLYCERIDE 35 <150 mg/dL 10/23/2019 4:25 PM CDT [facility] HDL 62(H) 40 - 59 mg/dL 10/23/2019 4:25 PM CDT [facility] LDL CALCULATED 68 <100 mg/dL 10/23/2019 4:25 PM CDT [facility] NON-HDL CHOLESTEROL 75 <130 mg/dL 10/23/2019 4:25 PM CDT [facility] Blood Venipuncture / Unknown 10/23/2019 12:49 PM CDT 10/23/2019 3:00 PM CDT Narrative [facility] - 10/23/2019 4:25 PM CDT TOTAL CHOLESTEROL mg/dL Desirable <200 Borderline high 200-239 High >=240 TRIGLYCERIDES mg/dL Normal <150 Borderline high 150-199 High 200-499 Very high >=500 HDL CHOLESTEROL mg/dL Low <40 Normal 40-59 Desirable >=60 NON HDL CHOLESTEROL mg/dL Optimal <130 Near Optimal 130-159 Borderline High 160-189 Very High >=190 CALCULATED LDL mg/dL LDL <70, OPTIMAL if have Atherosclerotic cardiovascular disease (ASCVD) or intermediate or higher (>7.5%) 10 year risk of ASCVD including most adults with diabetes. LDL <100, Optimal in adult patients with low (<7.5%) 10 year ASCVD risk LDL 100-160, Suboptimal LDL >160, High LDL >190, Very high ATPIII Guidelines Reference Ranges for Lipid Panels (NCEP/AMA) . us Savanah Garibay MD CHEMISTRY ORDERABL ES Final Result [facility]# [id number] [address] [place] [address] from Last 3 Months or Most Recently Relevant to Health Maintenance Insurance RX [facility] Medicare Part D [address] [place] [id number] [facility] MEDICARE HMO [address] [place] [id number] Advance Directives For more information, please contact: [phone] * Full Code (Latest Code Status on File) Date Activated Date Inactivated Comments 07/09/2024 1:09 AM 07/10/2024 4:29 PM * Full Code Date Activated Date Inactivated Comments 01/20/2024 8:47 PM 01/28/2024 7:55 PM * Full Code Date Activated Date Inactivated Comments 10/25/2022 9:19 PM 10/28/2022 3:12 PM * Full Code Date Activated Date Inactivated Comments 10/25/2022 8:48 PM 10/25/2022 9:16 PM * Full Code Date Activated Date Inactivated Comments 10/08/2022 12:59 AM 10/08/2022 8:54 PM Care Teams Drain Tiler Relationship Specialty Start Date End Date Yaniv Moe MD [address] [place] [phone] PCP - General Family Practice 10/27/23
--- OUTSIDE RECORDS SUMMARY | 2024-10-13 12:09 | XMS_ITS ---
Author Organization Unknown Vital Signs BpStanding BpSitting BpSupine Date Temperature HeartRate Weight Hei ght Spo2 Respiration Bmi HeadCircumference FieldCount TimeRecorded NeckCircumferen ce WaistCircumference Pulse 140/80 01/31 00:00 :00 97.4 127,16. 00 6,0 99 20 17.4 00:00 74 148/84 12/06 00:00 :00 97.8 6,0 98 00:00 76 174/100 08/27 00:00 :00 97.6 6,0 94 00:00 71
--- NOTE | 2024-10-13 12:11 | ECG_ITS ---
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: : 1980 Requested By: Nikhil Mcdaniels Order Number: [id number] Reading MD: Measurements Intervals [place]ing Rate: 80 P: 56 ID: [id number] QRS: 66 QRSD: 119 T: -16 QT: 453 QTc: 525 Interpretive Statements SINUS RHYTHM POSSIBLE LEFT ATRIAL ENLARGEMENT [-0.1mV P-WAVE IN V1/V2] SEPTAL MYOCARDIAL INFARCTION , PROBABLY RECENT [40+ ms Q WAVE IN V1/V2] ACUTE AR Compared to ECG 08/16/2024 21:39:13 Sinus arrhythmia no longer present Left ventricular hypertrophy no longer present ST (T wave) deviation no longer present Myocardial infarct finding still present [id number]
--- NOTE | 2024-10-13 12:11 | W.ED.CHESTPA ---
HPI - Chest Pain General: Chief Complaint: Shortness of Breath/Dyspnea Stated Complaint: sob Time Seen by Provider: 10/13/24 12:04 History of Present Illness: Chief complaint shortness of breath. History is obtained from the patient and from EMS. Patient states he felt fine last night. He woke up about 5:00 this morning feeling like he could not breathe. No chest pain or chest discomfort. No leg pain or swelling. No black or bloody stools. No fever or cough. No hemoptysis. No headache. No abdominal pain vomiting or diarrhea. Patient states his last dialysis was on . EMS states that his pulse ox was in the 70s when they arrived and he is not on home oxygen. He had a PE about a month ago he states and he was on a blood thinner and they just switched him to warfarin and he states he did not have any shots. He states that he also had a stent placed about a week and a half ago. He states no groin pain or swelling. No chest discomfort. Related Data Home Medications ?Medication ?Instructions ?Recorded ?Confirmed amlodipine 5 mg tablet 5 mg PO QPM 06/09/24 09/19/24 bumetanide 2 mg tablet 2 mg PO DAILY PRN dialysis days 06/09/24 09/19/24 only buspirone 5 mg tablet 5 mg PO TID 06/09/24 09/19/24 calcitriol 0.25 mcg capsule 0.75 mcg PO DAILY 06/09/24 09/19/24 Held on 08/22/24. Instructions: Resume on 09/05/24. hold until follow up with nephrology carvedilol 25 mg tablet 50 mg PO TID 06/09/24 09/19/24 clonidine HCl 0.3 mg tablet 0.3 mg PO TID 06/09/24 09/19/24 gabapentin 100 mg capsule See Rx Instructions .Route .COMPLEX 06/09/24 09/19/24 hydralazine 100 mg tablet 100 mg PO TID 06/09/24 09/19/24 insulin lispro 100 unit/mL 15 unit SUBCUT TID 06/09/24 09/19/24 subcutaneous pen lisinopril 20 mg tablet 20 mg PO DAILY 06/09/24 09/19/24 loperamide 2 mg capsule See Rx Instructions .Route .COMPLEX 06/09/24 09/19/24 megestrol 40 mg tablet 40 mg PO BID 06/09/24 09/19/24 mirtazapine 15 mg tablet 7.5 mg PO DAILY 06/09/24 09/19/24 nifedipine 30 mg tablet,extended 30 mg PO DAILY 06/09/24 09/19/24 release pantoprazole 40 mg tablet,delayed 40 mg PO DAILY 06/09/24 09/19/24 release ropinirole 0.5 mg tablet 0.5 mg PO QPM 06/09/24 09/19/24 sevelamer carbonate 800 mg tablet See Rx Instructions .Route .COMPLEX 06/09/24 09/19/24 venlafaxine 150 mg 150 mg PO DAILY 06/09/24 09/19/24 capsule,extended release 24 hr sodium bicarbonate 325 mg tablet 325 mg PO DAILY PRN 09/19/24 09/19/24 Previous Rx's ?Medication ?Instructions ?Recorded clopidogrel 75 mg tablet 75 mg PO DAILY 30 days #30 tabs 08/22/24 apixaban 5 mg tablet (Eliquis) See Rx Instructions .Route 09/19/24 .COMPLEX #90 tabs Allergies Allergy/AdvReac Type Severity Reaction Status Date / Time No Known Allergies Allergy Verified 10/13/24 12:15 [facility] ED PFSH: Medical History Chronic hypertension ESRD (end stage renal disease) Diabetic peripheral neuropathy associated with type 2 diabetes mellitus Ingrowing toenail of left foot Hematoma of leg Non-pressure chronic ulcer of 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 Bilateral pes planus Medical non-compliance Hypertensive urgency Closed right trimalleolar fracture Restless leg syndrome Peritonitis CAD (coronary artery disease) Depression End-stage renal disease on peritoneal dialysis Anemia Surgical History Hx of CABG Social History Smoking and tobacco/nicotine status: former use of tobacco/nicotine Alcohol intake: never Substance/Drug Use: current Other substance/drug use details: Medical marijuana Physical Exam Narrative: EXAM NARRATIVE: Patient is alert moderate distress on oxygen. No JVD. Neck is supple. Conjunctiva is normal. Heart is regular rhythm. Lung sounds mildly diminished bilateral more at the bases. No expiratory wheezing or prolonged expiratory phase. He is tachypneic but no accessory muscle use or retractions. Abdomen soft nontender. Extremities warm well-perfused. No calf tenderness or pitting edema. No rash on exposed areas. He moves his back freely. Speech is clear. Moist mucous membranes. Shows ability to reason. Appropriate affect. Course Vital Signs: Vital signs: Vital Signs Temperature 98.2 F 10/13/24 12:04 Pulse Rate 82 10/13/24 12:04 Respiratory Rate 26 H 10/13/24 12:04 Blood Pressure 184/119 10/13/24 12:04 Pulse Oximetry 86 L 10/13/24 12:04 Oxygen Delivery Me thod Nasal Cannula 10/13/24 12:04 Oxygen Flow Rate 7 10/13/24 12:04 MDM - Chest Pain Medical Decision Making Patient presents complaining of sudden onset shortness of breath this morning. He is dialysis patient but states he completed full dialysis on and has not missed dialysis. Certainly pulmonary edema or pleural effusion considered in the differential. Pericardial effusion also considered. Patient had recent cardiac stent placed and occluded stent or dissection or acute CHF or acute TN considered but patient denies any chest pain or chest discomfort. Patient had PE about a month ago he states that he has been on blood thinner and just converted over to warfarin therapy. Patient may be subtherapeutic and have pulmonary embolus. Pneumonia, pneumothorax, among many others considered. Patient denies being on oxygen at home. He denies any history of COPD or asthma or use of breathing treatments. EKG ordered shows a sinus rhythm with a rate of [address] depression to my interpretation. CBC CMP chest x-ray proBNP ordered and I discussed with patient we will get a CT angio of the chest to evaluate for PE or other causes. Patient states he makes very little urine. He has end-stage renal disease. No evidence of PE on CT angio of the chest per radiology but both chest x-ray and CT show findings consistent with multifocal pneumonia. Patient states he had pneumonia in August. Patient's troponin is 451. He denies any chest pain or chest discomfort. Repeat EKG shows ST depression and nonspecific ST segment changes with a sinus rhythm with a rate of 72 bpm. Will administer aspirin 324 mg p.o. Patient's white count was elevated consistent with pneumonia. INR was subtherapeutic at 1.22. Plan to admit to the hospital on IV antibiotics. I ordered Zosyn 4.5 g IV and blood cultures. Patient currently 100% on nonrebreather. I have paged hospitalist for admission. Lab Data 10/13/24 11:53 10/13/24 12:51 Radiology Impressions Chest CTA 10/13/24 12:09 IMPRESSION: 1. No pulmonary embolism. 2. Multifocal consolidation, suggestive of pneumonia. Chest X-Ray 10/13/24 12:09 IMPRESSION: Multifocal patchy consolidations, suggestive of pneumonia. Laboratory Results WBC 15.40 10^3/uL (3.29-11.43) H 10/13/24 11:53 RBC 4.64 10^6/uL (3.85-5.65) 10/13/24 11:53 Hgb 13.30 g/dL (11.27-16.99) 10/13/24 11:53 Hct 42.2 % (37-53) 10/13/24 11:53 MCV 90.9 fl (82-101) 10/13/24 11:53 MCH 28.7 pg (27-33) 10/13/24 11:53 MCHC 31.5 g/dL (30-55) 10/13/24 11:53 RDW 17.4 % (12.1-15.1) H 10/13/24 11:53 Plt Count 215 10^3/cmm (157-399) 10/13/24 11:53 MPV 10.1 fL (7.4-10.4) 10/13/24 11:53 Neut % (Auto) 87.4 % 10/13/24 11:53 Lymph % (Auto) 4.5 % 10/13/24 11:53 [place] % (Auto) 6.2 % 10/13/24 11:53 Eos % (Auto) 0.5 % 10/13/24 11:53 Baso % (Auto) 0.8 % 10/13/24 11:53 Neut # (Auto) 13.45 10^3/uL (1.8-7.7) H 10/13/24 11:53 Lymph # (Auto) 0.7 10^3/uL (0.8-4.8) L 10/13/24 11:53 [place] # (Auto) 1.0 10^3/uL (0.2-0.9) H 10/13/24 11:53 Eos # (Auto) 0.1 10^3/uL (0.0-0.8) 10/13/24 11:53 Baso # (Auto) 0.1 10^3/uL (0.0-0.1) 10/13/24 11:53 Nucleated RBC % (auto) 0 % 10/13/24 11:53 Nucleated RBCs # 0.0 /100WBC 10/13/24 11:53 PT 16.30 SECONDS (12.1-14.9) H 10/13/24 12:51 INR 1.22 (0.8-1.2) H 10/13/24 12:51 APTT 31.5 SECONDS (23.9-36.7) 10/13/24 12:51 Sodium 135 mmol/L (136-145) L 10/13/24 12:51 Potassium 5.4 mmol/L (3.5-5.1) H 10/13/24 12:51 Chloride 94 mmol/L (98-107) L 10/13/24 12:51 Carbon Dioxide 19 mmol/L (22-29) L 10/13/24 12:51 Anion Gap 27.4 (5-19) H 10/13/24 12:51 BUN 47 mg/dL (6-20) H 10/13/24 12:51 Creatinine 5.8 mg/dL (0.7-1.2) H* 10/13/24 12:51 GFR Calculation 10.6 mL/min (90-130) L 10/13/24 12:51 Glucose 210 mg/dL (65-115) H 10/13/24 12:51 Calculated Osmolality 298 mOsm/kg (285-295) H 10/13/24 12:51 Calcium 9.3 mg/dL (8.5-10.5) 10/13/24 12:51 Total Bilirubin 0.6 mg/dL (0.15-1.2) 10/13/24 12:51 AST 22 U/L (0-40) 10/13/24 12:51 ALT 8 U/L (0-41) 10/13/24 12:51 Alkaline Phosphatase 66 U/L (40-130) 10/13/24 12:51 Troponin T Baseline 451 ng/L (0-15) H* 10/13/24 12:51 Troponin T 120 Minute 605.4 ng/L (0-15) H 10/13/24 14:44 Delta Troponin T 154.4 ABS# (0-10) H* 10/13/24 14:44 NT-Pro-B Natriuret Pep > 70777 pg/mL (0-125) H 10/13/24 12:51 Total Protein 7.2 g/dL (6.6-8.7) 10/13/24 12:51 Albumin 4.0 g/dL (3.5-5.2) 10/13/24 12:51 Globulin 3.2 g/dL (1.3-4.6) 10/13/24 12:51 All radiology interpretation(s) finalized by discharge Critical Care Time Critical Care Time: Attestation: 45 minutes of critical care time reassessing patient's response to treatment, ordering and reviewing labs, discussing with specialist and hospitalist and with family. Discussing treatment plan. Risk factors include elevated troponin, acute respiratory failure, hypoxia, pneumonia, end-stage renal disease. Discharge Plan Discharge Patient Disposition: Admitted As Inpatient Clinical Impression: Community acquired pneumonia, Acute hypoxemic respiratory failure, Elevated troponin Condition: Stable Coding Level of Care Code ED Project Engineering Manager for Monik Riley
[2024-10-13 12:37] LABS: Hematocrit 42.2 % (37-53); Hemoglobin 13.30 g/dL (11.27-16.99); Mean Corpuscular HGB Conc 31.5 g/dL (30-55); Mean Corpuscular Hemoglobin 28.7 pg (27-33); Mean Corpuscular Volume 90.9 fl (82-101); Nucleated Red Blood Cells % 0 %; Platelet Count 215 10^3/cmm (157-399); Red Blood Count 4.64 10^6/uL (3.85-5.65); White Blood Count 15.40 10^3/uL (3.29-11.43)
[2024-10-13 13:12] LABS: INR 1.22 (0.8-1.2); Partial Thromboplastin Time 31.5 SECONDS (23.9-36.7); Prothrombin Time 16.30 SECONDS (12.1-14.9)
[2024-10-13 13:19] LABS: Troponin(5th) Baseline 451 ng/L (0-15)
--- NOTE | 2024-10-13 13:34 | ECG_ITS ---
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: : 1980 Requested By: Nikhil Mcdaniels Order Number: [id number] Reading MD: Measurements Intervals [place] Rate: 72 P: 48 ND: 191 QRS: 26 QRSD: 114 T: 0 QT: 468 QTc: 515 Interpretive Statements SINUS RHYTHM POSSIBLE LEFT ATRIAL ENLARGEMENT [-0.1mV P-WAVE IN V1/V2] SEPTAL MYOCARDIAL INFARCTION , PROBABLY OLD [40+ ms Q WAVE IN V1/V2] MODERATE T-WAVE ABNORMALITY, CONSIDER LATERAL ISCHEMIA [-0.1+ mV T-WAVE IN I/aVL/V5/V6] Compared to ECG 10/13/2024 12:11:42 T-wave abnormality now present Possible ischemia now present Myocardial infarct finding still present [email or web address]
[2024-10-13 13:47] LABS: Alanine Aminotransferase 8 U/L (0-41); Albumin Level 4.0 g/dL (3.5-5.2); Alkaline Phosphatase 66 U/L (40-130); Anion Gap 27.4 (5-19); Aspartate Amino Transferase 22 U/L (0-40); Blood Urea Nitrogen 47 mg/dL (6-20); Calcium 9.3 mg/dL (8.5-10.5); Carbon Dioxide 19 mmol/L (22-29); Chloride 94 mmol/L (98-107); Globulin 3.2 g/dL (1.3-4.6); Glucose 210 mg/dL (65-115); Osmolality Calculated 298 mOsm/kg (285-295); Potassium 5.4 mmol/L (3.5-5.1); Sodium 135 mmol/L (136-145); Total Protein 7.2 g/dL (6.6-8.7)
[2024-10-13 13:51] LABS: Creatinine Clr Calc Pharmacy 16.4248
[2024-10-13 14:23] LABS: NT Pro B Type Natriuretic Pept > 70000 pg/mL (0-125)
[2024-10-13 15:12] LABS: Troponin 5 2HR 605.4 ng/L (0-15); Troponin 5 2HR Delta 154.4 ABS# (0-10)
[2024-10-13] MEDS: piperacillin-tazobactam 4.5 GM in sodium chloride 0.9% (plus) 50 ML IV (15:20)
--- NOTE | 2024-10-13 15:43 | PM.HP ---
Providers/Chief Complaint Primary Care Provider: Yaniv Moe MD Chief Complaint: sob History of Present Illness Jose Guadalupe Claudio is a 44 year old male With past medical history of end-stage renal disease on hemodialysis Tuesday schedule, COVID-19 in 2020 complicated by cardiac arrest, coma, stroke, need for tracheostomy, history of CABG for triple-vessel disease with recent coronary angiogram with PCI with angioplasty and drug-eluting stent, recently unprovoked PE presented to the hospital today for complaint of shortness of breath. He went to dialysis today however was unable to get dialysis session as he was needing supplemental oxygen and feeling weak. He was sent to the hospital from there for further workup and management. Patient's is at the bedside who supplements with history. She tells me that their insurance will not cover Eliquis and therefore patient was switched over to warfarin this Tuesday. Bridging therapy was not ordered. Patient has not missed any doses of his aspirin and Plavix. He has been taking aspirin 325 daily with Plavix along with warfarin since Tuesday. Note warfarin was added Tuesday morning.. Eliquis was stopped. Last dose of Eliquis was on Tuesday. He denies chest pain at this time. Appears lethargic and weak. On 100% nonrebreather at this time. INR 1.22. BNP greater than 70,000, baseline troponin 451, 2-hour troponin pending at this time. Urine drug screen positive for marijuana. Patient denies nausea vomiting diarrhea at this time. Chest x-ray done in the ER shows possible multilobar pneumonia. CT ruled out pulmonary embolism. Medications/Allergies Home Medications ?Medication ?Instructions ?Recorded ?Confirmed ?Last Taken ?Type amlodipine 5 mg tablet 5 mg PO QPM 06/09/24 10/13/24 10/12/24 19:00 History bumetanide 2 mg tablet 2 mg PO DAILY PRN dialysis days 06/09/24 10/13/24 08/16/24 History only buspirone 5 mg tablet 5 mg PO TID 06/09/24 10/13/24 10/13/24 07:00 History carvedilol 25 mg tablet 50 mg PO TID 06/09/24 10/13/24 10/13/24 08:00 History clonidine HCl 0.3 mg tablet 0.3 mg PO TID 06/09/24 10/13/24 10/13/24 08:00 History hydralazine 100 mg tablet 100 mg PO TID 06/09/24 10/13/24 10/13/24 07:00 History insulin lispro 100 unit/mL 15 unit SUBCUT TID 06/09/24 10/13/24 10/13/24 07:00 History subcutaneous pen lisinopril 20 mg tablet 20 mg PO DAILY 06/09/24 10/13/24 10/13/24 History loperamide 2 mg capsule See Rx Instructions .Route .COMPLEX 06/09/24 10/13/24 10/13/24 08:00 History megestrol 40 mg tablet 40 mg PO BID 06/09/24 10/13/24 10/13/24 History mirtazapine 15 mg tablet 7.5 mg PO QPM 06/09/24 10/13/24 10/12/24 19:00 History nifedipine 30 mg tablet,extended 30 mg PO DAILY 06/09/24 10/13/24 10/13/24 History release pantoprazole 40 mg tablet,delayed 40 mg PO DAILY 06/09/24 10/13/24 10/13/24 History release ropinirole 0.5 mg tablet 0.5 mg PO QPM 06/09/24 10/13/24 10/12/24 19:00 History sevelamer carbonate 800 mg tablet See Rx Instructions .Route .COMPLEX 06/09/24 10/13/24 10/13/24 08:00 History venlafaxine 150 mg 150 mg PO DAILY 06/09/24 10/13/24 10/13/24 History capsule,extended release 24 hr clopidogrel 75 mg tablet 75 mg PO DAILY 30 days #30 tabs 08/22/24 10/13/24 10/13/24 Rx sodium bicarbonate 325 mg tablet 325 mg PO DAILY PRN Stomach ACID 09/19/24 10/13/24 Unknown History vit B,C-folic ac 800 mcg-zinc 12.5 See Rx Instructions .Route .COMPLEX 10/13/24 10/13/24 Unknown History mg-selen-D3 2,000 unit-vit E tablet (RenaPlex-D) warfarin 5 mg tablet 5 mg PO DAILY 10/13/24 10/13/24 10/13/24 History Allergies Allergy/AdvReac Type Severity Reaction Status Date / Time No Known Allergies Allergy Verified 10/13/24 12:15 PFSH Acute PFSH: Medical History (Updated 10/13/24 @ 14:23 by Nikhil Mcdaniels MD) Chronic hypertension ESRD (end stage renal disease) Diabetic peripheral neuropathy associated with type 2 diabetes mellitus Ingrowing toenail of left foot Hematoma of leg Non-pressure chronic ulcer of 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 Bilateral pes planus Medical non-compliance Hypertensive urgency Closed right trimalleolar fracture Restless leg syndrome Peritonitis CAD (coronary artery disease) Depression End-stage renal disease on peritoneal dialysis Anemia Surgical History (Updated 10/13/24 @ 18:23 by Apurva Viveros MD) Hx of CABG Social History Smoking and tobacco/nicotine status: former use of tobacco/nicotine Alcohol intake: never Substance/Drug Use: current Other substance/drug use details: Medical marijuana Vitals/I&O/Wt Last Vital Signs Temp 98.2 F 10/13/24 12:04 Pulse 66 10/13/24 15:37 Resp 26 H 10/13/24 12:04 BP 184/119 10/13/24 12:04 Pulse Ox 98 10/13/24 15:37 O2 Del Method Nasal Cannula 10/13/24 12:04 O2 Flow Rate 7 10/13/24 12:04 FiO2 45 10/13/24 15:37 10/13/24 10/13/24 10/13/24 06:59 14:59 22:59 Intake Total 0 / 0 Balance 0 / 0 Weight last 48 hrs Weight 71 kg Physical Exam Narrative: General: Alert oriented, able to follow commands and answer questions. at bedside. Laying in bed appearing lethargic 100% nonrebreather. HEENT: Normocephalic, atraumatic, EOMI, breathing under percent nonrebreather Cardio: Patient wearing a LifeVest, regular rate rhythm, normal S1-S2 Respiratory: Rhonchi bilaterally at bases. GI: Abdomen soft, nontender, nondistended, bowel sounds + Extremities: Right leg slightly swollen compared to left leg. Data 10/13/24 11:53 10/13/24 12:51 Micro: Microbiology 10/13/24 14:46 Blood Culture - Preliminary Blood SPECIMEN COLLECTED 10/13/24 14:44 Blood Culture - Preliminary Blood SPECIMEN COLLECTED A&P Assessment and plan (1) Chronic hypertension: (2) Ischemic congestive cardiomyopathy: (3) Elevated troponin: (4) Pulmonary embolism: (5) End stage kidney disease: (6) Pneumonia: (7) Pulmonary edema: (8) Acute hypoxemic respiratory failure: (9) Breath shortness: (10) Diabetic peripheral neuropathy associated with type 2 diabetes mellitus: (11) ESRD (end stage renal disease): Plan #Acute on chronic combined systolic diastolic heart failure exacerbation #Acute hypoxia respiratory failure #Missed dialysis #End-stage renal disease Tuesday #Bilateral multifocal pneumonia #History of CABG with triple-vessel disease status post coronary angiogram with PCI, balloon angioplasty, drug-eluting stent August 21, 2024 #On anticoagulation for recent unprovoked PE #History of stroke -Patient's initial troponin is 456 with 2-hour troponin 600 range. Delta +150. ? He did have recent coronary angiogram with intervention. Has a history of triple-vessel disease/CABG. Has had an [place] in the past. Discussed with on-call merchandise planning manager. Will place on heparin drip and anticoagulation patient for at least 48 hours. ? Plan for angiogram during this hospitalization once patient is more stable from respiratory standpoint ? Continue nonrebreather at this time. Order BiPAP. ? Patient does have evidence of pulmonary edema and multifocal pneumonia ? Consult coater operator insulation board. Patient requires dialysis ? Continue oxygen support and wean off as able ? On initial presentation was hypertensive on arrival, blood pressure is improved at this time ? Continue home lisinopril, carvedilol, buspirone, nifedipine, pantoprazole, venlafaxine ? Hold warfarin at this time ? Discussed with patient regarding coupons for Eliquis at time of discharge. ? Hold clonidine at this time ? Hold off on IV fluids ? Consult merchandise planning manager. Discussed with Dr. Green over the phone ? Patient does not have any active chest pain at this time. He is not having a STEMI. ? Discussed with patient and his that we will admit at [facility] however Manager Corporate Strategy does have technical problem at this time. Should the patient develop any chest pain or the need arises for emergent coronary angiogram at that point we will have to transfer the patient to a higher level of care facility. Patient and agreeable. ? Placed on vancomycin and Zosyn to treat for pneumonia ? Check bacterial antigen Legionella, Streptococcus ? Check procalcitonin ? Placed on sliding scale insulin moderate dose intensity ? Place patient on heparin drip ? Continue aspirin Plavix ? Will admit to ICU at this time. Full code DVT prophylaxis: Patient will be on heparin drip PDMP PDMP Reviewed: Not Reviewed Attestations Medical Necessity Statement*: Greater than 2 midnight stay for management of hypoxic respiratory failure with combined CHF exacerbation, missed dialysis, bilateral multifocal pneumonia. He will require coronary angiogram during this hospitalization which is currently being planned for Tuesday versus Tuesday. Patient also has an NSTEMI. Diagnoses Chronic hypertension I10 Ischemic congestive cardiomyopathy I25.5; I42.0 Elevated troponin R79.89 Multiple subsegmental pulmonary emboli without acute cor pulmonale I26.94 Pulmonary embolism type: multiple subsegmental (without acute cor pulmonale) End stage kidney disease N18.6 Pneumonia J18.9 Pulmonary edema J81.1 Acute hypoxemic respiratory failure J96.01 Breath shortness R06.02 Diabetic peripheral neuropathy associated with type 2 diabetes mellitus E11.42
--- NOTE | 2024-10-13 15:45 | PHA.VACGOAL ---
Vancomycin Goal - Goal Vancomycin Goal:: 15-20 mg/L Vancomycin Indication:: Pneumonia - Therapy Current therapy:: Pip/Tazo Day of therpy:: Day []of [] . Actual body weight (kg): 156 lb 8.451 oz - Data Labs: WBC 15.40 10^3/uL (3.29-11.43) H 10/13/24 11:53 RBC 4.64 10^6/uL (3.85-5.65) 10/13/24 11:53 Hgb 13.30 g/dL (11.27-16.99) 10/13/24 11:53 Hct 42.2 % (37-53) 10/13/24 11:53 MCV 90.9 fl (82-101) 10/13/24 11:53 MCH 28.7 pg (27-33) 10/13/24 11:53 MCHC 31.5 g/dL (30-55) 10/13/24 11:53 RDW 17.4 % (12.1-15.1) H 10/13/24 11:53 Sodium 135 mmol/L (136-145) L 10/13/24 12:51 Potassium 5.4 mmol/L (3.5-5.1) H 10/13/24 12:51 Chloride 94 mmol/L (98-107) L 10/13/24 12:51 Carbon Dioxide 19 mmol/L (22-29) L 10/13/24 12:51 Anion Gap 27.4 (5-19) H 10/13/24 12:51 BUN 47 mg/dL (6-20) H 10/13/24 12:51 Creatinine 5.8 mg/dL (0.7-1.2) H* 10/13/24 12:51 GFR Calculation 10.6 mL/min (90-130) L 10/13/24 12:51 Last dialysis session:: N/A Treatment plan:: new consult Regimen:: LOADING DOSE OF 2000 MG PER DOSING PROTOCOL. WILL PULSE DOSE DUE TO REDUCED RENAL FUNCTION. Follow up:: LEVEL TO BE OBTAINED 24 HOURS POST LOADING DOSE.
--- NOTE | 2024-10-13 16:30 | PM.CONSULT ---
Providers/Reason For Consult Consulting Physician/Specialty*: fran Reason for Consult*: ESRD Attending Physician: Apurva Viveros MD Primary Care Provider: Yaniv Moe MD History of Present Illness History of Present Illness Jose Guadalupe Claudio is a 44 year old male With past medical history significant for end-stage renal disease, hypertension, coronary artery disease, depression chronic anemia presented to the emergency department complaining of shortness of breath. Patient was placed on nonrebreather mask and saturations were noted to be in the his dialysis schedule is Tuesday and last dialysis was on . Lab data is significant for white count of 15,000, sodium 135 potassium 5.4 CO2 of 19. Chest x-ray showed possible multilobar pneumonia. Negative for PE on CT angiogram Review of Systems Narrative: Other review of systems negative Medications/Allergies Home Medications ?Medication ?Instructions ?Recorded ?Confirmed ?Last Taken ?Type amlodipine 5 mg tablet 5 mg PO QPM 06/09/24 10/13/24 10/12/24 19:00 History bumetanide 2 mg tablet 2 mg PO DAILY PRN dialysis days 06/09/24 10/13/24 08/16/24 History only buspirone 5 mg tablet 5 mg PO TID 06/09/24 10/13/24 10/13/24 07:00 History carvedilol 25 mg tablet 50 mg PO TID 06/09/24 10/13/24 10/13/24 08:00 History clonidine HCl 0.3 mg tablet 0.3 mg PO TID 06/09/24 10/13/24 10/13/24 08:00 History hydralazine 100 mg tablet 100 mg PO TID 06/09/24 10/13/24 10/13/24 07:00 History insulin lispro 100 unit/mL 15 unit SUBCUT TID 06/09/24 10/13/24 10/13/24 07:00 History subcutaneous pen lisinopril 20 mg tablet 20 mg PO DAILY 06/09/24 10/13/24 10/13/24 History loperamide 2 mg capsule See Rx Instructions .Route .COMPLEX 06/09/24 10/13/24 10/13/24 08:00 History megestrol 40 mg tablet 40 mg PO BID 06/09/24 10/13/24 10/13/24 History mirtazapine 15 mg tablet 7.5 mg PO QPM 06/09/24 10/13/24 10/12/24 19:00 History nifedipine 30 mg tablet,extended 30 mg PO DAILY 06/09/24 10/13/24 10/13/24 History release pantoprazole 40 mg tablet,delayed 40 mg PO DAILY 06/09/24 10/13/24 10/13/24 History release ropinirole 0.5 mg tablet 0.5 mg PO QPM 06/09/24 10/13/24 10/12/24 19:00 History sevelamer carbonate 800 mg tablet See Rx Instructions .Route .COMPLEX 06/09/24 10/13/24 10/13/24 08:00 History venlafaxine 150 mg 150 mg PO DAILY 06/09/24 10/13/24 10/13/24 History capsule,extended release 24 hr clopidogrel 75 mg tablet 75 mg PO DAILY 30 days #30 tabs 08/22/24 10/13/24 10/13/24 Rx sodium bicarbonate 325 mg tablet 325 mg PO DAILY PRN Stomach ACID 09/19/24 10/13/24 Unknown History vit B,C-folic ac 800 mcg-zinc 12.5 See Rx Instructions .Route .COMPLEX 10/13/24 10/13/24 Unknown History mg-selen-D3 2,000 unit-vit E tablet (RenaPlex-D) warfarin 5 mg tablet 5 mg PO DAILY 10/13/24 10/13/24 10/13/24 History Allergies Allergy/AdvReac Type Severity Reaction Status Date / Time No Known Allergies Allergy Verified 10/13/24 12:15 PFSH Acute PFSH: Medical History Chronic hypertension ESRD (end stage renal disease) Diabetic peripheral neuropathy associated with type 2 diabetes mellitus Ingrowing toenail of left foot Hematoma of leg Non-pressure chronic ulcer of 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 Bilateral pes planus Medical non-compliance Hypertensive urgency Closed right trimalleolar fracture Restless leg syndrome Peritonitis CAD (coronary artery disease) Depression End-stage renal disease on peritoneal dialysis Anemia Surgical History Hx of CABG Social History Smoking and tobacco/nicotine status: former use of tobacco/nicotine Alcohol intake: never Substance/Drug Use: current Other substance/drug use details: Medical marijuana Vitals/I&O/Wt Last Vital Signs Temp 98.2 F 10/13/24 12:04 Pulse 66 10/13/24 15:57 Resp 26 H 10/13/24 12:04 BP 184/119 10/13/24 12:04 Pulse Ox 94 10/13/24 15:57 O2 Del Method Nasal Cannula 10/13/24 12:04 O2 Flow Rate 7 10/13/24 12:04 FiO2 45 10/13/24 15:57 10/13/24 10/13/24 10/13/24 06:59 14:59 22:59 Intake Total 0 / 0 50 / 50 Balance 0 / 0 50 / 50 Weight last 48 hrs Weight 71 kg Physical Exam Narrative: Patient is awake alert, no acute distress PERRLA S1-S2 regular rate rhythm per report Lungs with bilateral crackles Abdomen soft nontender per report No edema in the extremities On nonrebreather mask with 100% FiO2 Data 10/13/24 11:53 10/13/24 12:51 Micro: Microbiology 10/13/24 14:46 Blood Culture - Preliminary Blood SPECIMEN COLLECTED 10/13/24 14:44 Blood Culture - Preliminary Blood SPECIMEN COLLECTED A&P Assessment and plan (1) End stage kidney disease: 1. End-stage renal disease: On TTS schedule as outpatient, patient now presents with acute on chronic respiratory failure, hypoxia and hyperkalemia. - Emergent dialysis today with 3 to 4 L ultrafiltration, assess daily for hemodialysis needs - 2 g sodium restriction and 1500 mL fluid restriction 2. Hyperkalemia: Low K diet and HD as above 3. Hypertensive urgency: Blood pressures elevated to systolic 180s and diastolic in the 1 teens on presentation, reassess after HD and resume home medications 4. Anemia: Due to CKD, will give Epogen once blood pressure is under control in the next 1 to 2 days 5. Acute on chronic respiratory failure: Possible pulmonary edema and pneumonia, antibiotics per primary team and HD as above PDMP PDMP Reviewed: Not Reviewed Consult Attestations Medical Necessity Statement: Per medicine team Coding Level of Care Code Acute Code for Chg Fwd Diagnoses End stage kidney disease N18.6
[2024-10-13 17:01] LABS: Hepatitis B Surface Antigen Non-Reactive (Nonreactive)
[2024-10-13] MEDS: heparin 5,000 unit/mL INJ 1 mL IVP (17:08)
[2024-10-13] MEDS: heparin drip 25,000 UNIT/500 ML PREMIX 20 UNIT IV (17:10)
[2024-10-13 17:50] LABS: PCP Screen Urine Negative (Negative)
[2024-10-13] MEDS: heparin, porcine 1,000 unit/mL INJ 10 mL 1000 UNIT IV (18:07)
[2024-10-13 18:24] LABS: Procalcitonin 1.15 ng/mL (0-0.5)
--- NOTE | 2024-10-13 18:34 | PC.NURSE ---
Renvela not given at this time due to patient being on dialysis and not eating within time frame. Discussed with HEENA Ruizmovie critic nurse, and patient.
--- NOTE | 2024-10-13 18:36 | PC.NURSE ---
Bacterial antigen and legionella antigen stat orders showed uncollected, called lab to confirm and lab notified me they had urine sample from patient already obtained from ER. Orders collected and results pending at this time.
[2024-10-13 19:01] LABS: Troponin 5 6HR 930.8 ng/L (0-15); Troponin 5 6HR Delta 479.8 ng/L (0-12)
[2024-10-13 23:29] LABS: Partial Thromboplastin Time 150.6 SECONDS (23.9-36.7)
[2024-10-14] VITALS (58 sets, daily range): BP systolic 135–193; BP diastolic 89–118; PULSE 70–91; RESP 13–31; TEMP 36.4–38.3; O2SAT 83–97; BMI 20.7
[2024-10-14 01:44] LABS: Partial Thromboplastin Time 34.3 SECONDS (23.9-36.7)
[2024-10-14 02:01] LABS: Alanine Aminotransferase 10 U/L (0-41); Albumin Level 3.7 g/dL (3.5-5.2); Alkaline Phosphatase 58 U/L (40-130); Anion Gap 24.1 (5-19); Aspartate Amino Transferase 54 U/L (0-40); Blood Urea Nitrogen 22 mg/dL (6-20); Calcium 9.1 mg/dL (8.5-10.5); Carbon Dioxide 21 mmol/L (22-29); Chloride 97 mmol/L (98-107); Creatinine Clr Calc Pharmacy 25.5556; Globulin 3.1 g/dL (1.3-4.6); Glucose 97 mg/dL (65-115); Osmolality Calculated 289 mOsm/kg (285-295); Potassium 4.1 mmol/L (3.5-5.1); Sodium 138 mmol/L (136-145); Total Protein 6.8 g/dL (6.6-8.7)
--- NOTE | 2024-10-14 02:12 | PC.NURSE ---
Initial ptt elevated 150.6 instructed to stop drip x 2 hours repeat ptt and call results. New results were 34.[address] Galvan to restart heparin at 12 units/kg/hour at this time. Repeat ptt in 6 hours at 8 am and follow protocol.
[2024-10-14] MEDS: piperacillin-tazobactam 3.375 GM in sodium chloride 0.9% (plus) 50 ML IV ×2 (02:59→16:03)
[2024-10-14 04:22] LABS: ABG PCO2 36.2 mmHg (35-45); ABG PH Result 7.44 (7.35-7.45); Arterial Blood Gas Hematocrit 38.0 % (42-52); Blood Gas LPM 5.0 %; Blood Gas Operator Identificat JDB; Blood Gas Sample Site Brachial, right; Blood Gas Sample Type Arterial; HCO3 ABG 24.5 mmol/L (22-26); PO2 ABG 56.9 mmHg (80.0-100.0)
[2024-10-14] MEDS: NIFEdipine ER (24 hr) 30 mg Tablet PO (07:59)
[2024-10-14] MEDS: venlafaxine ER (24HR) 150 mg Capsule PO (08:00)
[2024-10-14 10:27] LABS: Hematocrit 38.5 % (37-53); Hemoglobin 11.80 g/dL (11.27-16.99); Mean Corpuscular HGB Conc 30.6 g/dL (30-55); Mean Corpuscular Hemoglobin 28.6 pg (27-33); Mean Corpuscular Volume 93.2 fl (82-101); Nucleated Red Blood Cells % 0 %; Platelet Count 151 10^3/cmm (157-399); Red Blood Count 4.13 10^6/uL (3.85-5.65); White Blood Count 15.73 10^3/uL (3.29-11.43)
[2024-10-14 10:42] LABS: Partial Thromboplastin Time 43.6 SECONDS (23.9-36.7)
[2024-10-14] MEDS: heparin 5,000 unit/mL INJ 1 mL IVP (11:11)
--- NOTE | 2024-10-14 11:28 | PM.PN ---
Subjective Subjective: Seen this morning. Patient is on 6 L nasal cannula at this time. Blood pressure quite high 192/112. Restart home clonidine Requiring BiPAP at this time Plan for dialysis today. 3 L removed overnight. Currently on heparin drip. Vitals/I&O/Wt Last Vital Signs Temp 98.0 F 10/14/24 08:00 Pulse 78 10/14/24 10:00 Resp 18 10/14/24 10:00 BP 192/112 10/14/24 10:49 Pulse Ox 95 10/14/24 10:00 O2 Del Method BiPAP 10/14/24 10:00 O2 Flow Rate 5 10/14/24 08:00 FiO2 45 10/14/24 08:57 10/13/24 10/14/24 10/14/24 22:59 06:59 14:59 Intake Total 950 / 950 228 / 1178 317.68 / 317.68 Output Total 3600 / 3600 10 / 3610 Balance -2650 / -2650 218 / -2432 317.68 / 317.68 Weight last 48 hrs Weight 69.354 kg Weight 74.5 kg Weight 74.5 kg Weight 71 kg Physical Exam Narrative: General: ANO x 3 on BiPAP at this time. HEENT: Normocephalic, atraumatic, EOMI, Cardio: Patient wearing a LifeVest, regular rate rhythm, normal S1-S2 Respiratory: Crackles bilaterally at bases. GI: Abdomen soft, nontender, nondistended, bowel sounds + Extremities: Right leg slightly swollen compared to left leg. Trace edema present bilateral lower extremities. Urinary Catheter Management: Ballesteros: Cath Placed During This Visit: yes Reason for Continuing Indwelling Catheter: Accurate Measurement of Urinary Output in Critically Ill Patients Urinary Catheter Date of Insertion: 10/13/24 Data 10/14/24 10:06 10/14/24 01:28 Micro: Microbiology 10/13/24 17:12 Bacterial Antigens - Final Urine,Clean Catch 10/13/24 17:12 Legionella Urinary Antigen - Final Urine Catheterized 10/13/24 14:46 Blood Culture - Preliminary Blood SPECIMEN COLLECTED 10/13/24 14:44 Blood Culture - Preliminary Blood SPECIMEN COLLECTED A&P Assessment and plan (1) Chronic hypertension: (2) Ischemic congestive cardiomyopathy: (3) Elevated troponin: (4) Pulmonary embolism: (5) End stage kidney disease: (6) Pneumonia: (7) Pulmonary edema: (8) Acute hypoxemic respiratory failure: (9) Breath shortness: (10) Diabetic peripheral neuropathy associated with type 2 diabetes mellitus: (11) ESRD (end stage renal disease): Plan #Acute on chronic combined systolic diastolic heart failure exacerbation #Acute hypoxia respiratory failure #Missed dialysis #End-stage renal disease Tuesday #Bilateral multifocal pneumonia #History of CABG with triple-vessel disease status post coronary angiogram with PCI, balloon angioplasty, drug-eluting stent August 21, 2024 #On anticoagulation for recent unprovoked PE #History of stroke -Patient's initial troponin is 456 with 2-hour troponin 600 range. Delta +150. ? He did have recent coronary angiogram with intervention. Has a history of triple-vessel disease/CABG. [facility]. Discussed with on-call sales support rep. Will place on heparin drip and anticoagulation patient for at least 48 hours. ? Plan for angiogram during this hospitalization once patient is more stable from respiratory standpoint ? Continue nonrebreather at this time. Order BiPAP. ? Patient does have evidence of pulmonary edema and multifocal pneumonia ? Consult photographic reproduction technician. Patient requires dialysis ? Continue oxygen support and wean off as able ? On initial presentation was hypertensive on arrival, blood pressure is improved at this time ? Continue home lisinopril, carvedilol, buspirone, nifedipine, pantoprazole, venlafaxine ? Hold warfarin at this time ? Discussed with patient regarding coupons for Eliquis at time of discharge. ? Hold clonidine at this time ? Hold off on IV fluids ? Consult sales support rep. Discussed with Dr. Green over the phone ? Patient does not have any active chest pain at this time. He is not having a STEMI. ? Discussed with patient and his that we will admit at [facility] however Radio Broadcaster does have technical problem at this time. Should the patient develop any chest pain or the need arises for emergent coronary angiogram at that point we will have to transfer the patient to a higher level of care facility. Patient and agreeable. ? Placed on vancomycin and Zosyn to treat for pneumonia ? Check bacterial antigen Legionella, Streptococcus ? Check procalcitonin ? Placed on sliding scale insulin moderate dose intensity ? Place patient on heparin drip ? Continue aspirin Plavix ? Will admit to ICU at this time. Full code DVT prophylaxis: Patient will be on heparin drip 10/14/2024 Continue on dialysis Add clonidine home dose for high blood pressure. Plan for cath on Tuesday. Continue heparin drip at this time Await cardiology consultation Continue sliding scale insulin moderate dose intensity ? Continue aspirin Plavix. Patient had recent stent placed in August. Denies chest pain at this time. Procalcitonin 1.15. Continue to treat for pneumonia with antibiotics at this time. Continue to monitor in ICU. PDMP PDMP Reviewed: Not Reviewed Attestations Medical Necessity Statement*: Greater than 2 midnight stay for management of hypoxic respiratory failure with combined CHF exacerbation, missed dialysis, bilateral multifocal pneumonia. He will require coronary angiogram during this hospitalization which is currently being planned for Tuesday versus Tuesday. Patient also has an NSTEMI. Diagnoses Chronic hypertension I10 Ischemic congestive cardiomyopathy I25.5; I42.0 Elevated troponin R79.89 Multiple subsegmental pulmonary emboli without acute cor pulmonale I26.94 Pulmonary embolism type: multiple subsegmental (without acute cor pulmonale) End stage kidney disease N18.6 Pneumonia J18.9 Pulmonary edema J81.1 Acute hypoxemic respiratory failure J96.01 Breath shortness R06.02 Diabetic peripheral neuropathy associated with type 2 diabetes mellitus E11.42
[2024-10-14] MEDS: nitroglycerin drip 50 MG/250 ML PREMIX IV (12:59)
[2024-10-14] MEDS: heparin, porcine 1,000 unit/mL INJ 10 mL 1000 UNIT IV (13:30)
--- NOTE | 2024-10-14 14:16 | PM.CONSULT ---
Providers/Reason For Consult Consulting Physician/Specialty*: Tia Green MD/interventional cardiology Reason for Consult*: [id number] DC Congestive heart failure decompensated systolic type Chronic kidney disease on dialysis Shortness of breath due to first two Attending Physician: Apurva Viveros MD Primary Care Provider: Yaniv Moe MD History of Present Illness History of Present Illness Jose Guadalupe Claudio is a 44 year old male past medical history significant hypertension hyperlipidemia chronic kidney disease on dialysis presented with worsening of shortness of breath PND orthopnea and noted to be in decompensated heart failure he was also ruled in for non-ST elevation DC with peak troponin of 900. Patient has history of severe LV dysfunction he had history of bypass surgery recent angiogram/intervention was performed in July of this year. Twelve-lead EKG is suggestive of lateral wall ischemia. Currently denies any chest pain feeling much better with dialysis. Medications/Allergies Home Medications ?Medication ?Instructions ?Recorded ?Confirmed ?Last Taken ?Type amlodipine 5 mg tablet 5 mg PO QPM 06/09/24 10/13/24 10/12/24 19:00 History bumetanide 2 mg tablet 2 mg PO DAILY PRN dialysis days 06/09/24 10/13/24 08/16/24 History only buspirone 5 mg tablet 5 mg PO TID 06/09/24 10/13/24 10/13/24 07:00 History carvedilol 25 mg tablet 50 mg PO TID 06/09/24 10/13/24 10/13/24 08:00 History clonidine HCl 0.3 mg tablet 0.3 mg PO TID 06/09/24 10/13/24 10/13/24 08:00 History hydralazine 100 mg tablet 100 mg PO TID 06/09/24 10/13/24 10/13/24 07:00 History insulin lispro 100 unit/mL 15 unit SUBCUT TID 06/09/24 10/13/24 10/13/24 07:00 History subcutaneous pen lisinopril 20 mg tablet 20 mg PO DAILY 06/09/24 10/13/24 10/13/24 History loperamide 2 mg capsule See Rx Instructions .Route .COMPLEX 06/09/24 10/13/24 10/13/24 08:00 History megestrol 40 mg tablet 40 mg PO BID 06/09/24 10/13/24 10/13/24 History mirtazapine 15 mg tablet 7.5 mg PO QPM 06/09/24 10/13/24 10/12/24 19:00 History nifedipine 30 mg tablet,extended 30 mg PO DAILY 06/09/24 10/13/24 10/13/24 History release pantoprazole 40 mg tablet,delayed 40 mg PO DAILY 06/09/24 10/13/24 10/13/24 History release ropinirole 0.5 mg tablet 0.5 mg PO QPM 06/09/24 10/13/24 10/12/24 19:00 History sevelamer carbonate 800 mg tablet See Rx Instructions .Route .COMPLEX 06/09/24 10/13/24 10/13/24 08:00 History venlafaxine 150 mg 150 mg PO DAILY 06/09/24 10/13/24 10/13/24 History capsule,extended release 24 hr clopidogrel 75 mg tablet 75 mg PO DAILY 30 days #30 tabs 08/22/24 10/13/24 10/13/24 Rx sodium bicarbonate 325 mg tablet 325 mg PO DAILY PRN Stomach ACID 09/19/24 10/13/24 Unknown History vit B,C-folic ac 800 mcg-zinc 12.5 See Rx Instructions .Route .COMPLEX 10/13/24 10/13/24 Unknown History mg-selen-D3 2,000 unit-vit E tablet (RenaPlex-D) warfarin 5 mg tablet 5 mg PO DAILY 10/13/24 10/13/24 10/13/24 History Allergies Allergy/AdvReac Type Severity Reaction Status Date / Time No Known Allergies Allergy Verified 10/13/24 12:15 Current Medications Generic Name Dose Route Start Last Admin Trade Name Freq PRN Reason Stop Dose Admin Acetaminophen 650 mg 10/13/24 15:34 10/14/24 11:11 Acetaminophen 325 Mg Tablet PO 650 mg Q6H PRN Administration MILD PAIN Aspirin 81 mg 10/14/24 09:00 10/14/24 07:59 Aspirin 81 Mg Ec Tablet PO 81 mg DAILY JAQUELINE Administration Buspirone HCl 5 mg 10/13/24 21:00 10/14/24 07:59 Buspirone 10 Mg Tablet PO 5 mg TID JAQUELINE Administration Carvedilol 50 mg 10/13/24 21:00 10/14/24 07:59 Carvedilol 25 Mg Tablet PO 50 mg TID JAQUELINE Administration Clopidogrel Bisulfate 75 mg 10/13/24 15:40 10/14/24 07:59 Clopidogrel 75 Mg Tablet PO 75 mg DAILY JAQUELINE Administration Enoxaparin Sodium 65 mg 10/14/24 13:30 10/14/24 13:49 Enoxaparin 80 Mg/0.8 Ml Syringe SUBCUT 65 mg Q24H JAQUELINE Administration Hydralazine HCl 100 mg 10/13/24 21:00 10/14/24 07:59 Hydralazine 50 Mg Tablet PO 100 mg TID JAQUELINE Administration Piperacillin Sod/Tazobactam 50 mls @ 12.5 mls/hr 10/14/24 03:30 10/14/24 07:00 Sod 3.375 gm/ Sodium Chloride IV Infused Q12H JAQUELINE Infusion Nitroglycerin/Dextrose 50 mg in 250 mls @ 0 mls/hr 10/14/24 13:00 10/14/24 12:59 Nitroglycerin Drip IV 5 mcg/min .Q0M JAQUELINE 1.5 mls/hr Protocol Administration Per Protocol Lisinopril 20 mg 10/14/24 09:00 10/14/24 07:59 Lisinopril 20 Mg Tablet PO 20 mg DAILY JAQUELINE Administration Mirtazapine 7.5 mg 10/13/24 18:00 10/13/24 18:31 Mirtazapine 15 Mg Tablet PO 7.5 mg QPM JAQUELINE Administration Nifedipine 30 mg 10/14/24 09:00 10/14/24 07:59 Nifedipine Er (24 Hr) 30 Mg Tablet PO 30 mg DAILY JAQUELINE Administration Pantoprazole Sodium 40 mg 10/14/24 09:00 10/14/24 08:[address] 40 Mg Tablet PO 40 mg DAILY JAQUELINE Administration Ropinirole HCl 0.5 mg 10/13/24 18:00 10/13/24 18:31 Ropinirole 0.25 Mg Tablet PO 0.5 mg QPM JAQUELINE Administration Sevelamer Carbonate 800 mg 10/13/24 18:00 10/14/24 07:59 Sevelamer 800 Mg Tablet PO 800 mg BIDWM JAQUELINE Administration Sevelamer Carbonate 1,600 mg 10/14/24 13:00 10/14/24 12:05 Sevelamer 800 Mg Tablet PO 1,600 mg 1300 JAQUELINE Administration Venlafaxine HCl 150 mg 10/14/24 09:00 10/14/24 08:00 Venlafaxine Er (24hr) 150 Mg Capsule PO 150 mg DAILY JAQUELINE Administration PFSH Acute PFSH: Medical History (Updated 10/14/24 @ 14:24 by Tia Green MD) Left ventricular systolic dysfunction (LVSD), NYHA class 3 Chronic hypertension ESRD (end stage renal disease) Diabetic peripheral neuropathy associated with type 2 diabetes mellitus Ingrowing toenail of left foot Hematoma of leg Non-pressure chronic ulcer of 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 Bilateral pes planus Medical non-compliance Hypertensive urgency Closed right trimalleolar fracture Restless leg syndrome Peritonitis CAD (coronary artery disease) Depression End-stage renal disease on peritoneal dialysis Anemia Surgical History (Updated 10/13/24 @ 18:23 by Apurva Viveros MD) Hx of CABG Social History Smoking and tobacco/nicotine status: former use of tobacco/nicotine Alcohol intake: never Substance/Drug Use: current Other substance/drug use details: Medical marijuana Vitals/I&O/Wt Last Vital Signs Temp 100.2 F H 10/14/24 13:43 Pulse 80 10/14/24 14:00 Resp 27 H 10/14/24 14:00 BP 164/98 10/14/24 14:00 Pulse Ox 91 10/14/24 14:00 O2 Del Method Heated High Flow 10/14/24 14:00 O2 Flow Rate 6 10/14/24 13:18 FiO2 45 10/14/24 11:30 10/13/24 10/14/24 10/14/24 22:59 06:59 14:59 Intake Total 950 / 950 228 / 1178 366.68 / 366.68 Output Total 3600 / 3600 3609 Balance -2650 / -2650 218 / -2432 366.68 / 366.68 Weight last 48 hrs Weight 152 lb 14.4 oz Weight 164 lb 3.91 oz Weight 164 lb 3.91 oz Weight 156 lb 8.451 oz Physical Exam Const: OTHER: GENERAL: Patient is alert, awake and oriented x3. HEART: Regular S1 and S2. No murmur, rub or gallop. LUNGS: Clear to auscultate bilaterally. CENTRAL NERVOUS SYSTEM: Grossly nonfocal. EXTREMITIES: Lower extremities with out edema bilaterally. Urinary Catheter Management: Ballesteros: Cath Placed During This Visit: yes Reason for Continuing Indwelling Catheter: Accurate Measurement of Urinary Output in Critically Ill Patients Urinary Catheter Date of Insertion: 10/13/24 Data 10/14/24 10:06 10/14/24 01:28 Micro: Microbiology 10/13/24 17:12 Bacterial Antigens - Final Urine,Clean Catch 10/13/24 17:12 Legionella Urinary Antigen - Final Urine Catheterized 10/13/24 14:46 Blood Culture - Preliminary Blood SPECIMEN COLLECTED 10/13/24 14:44 Blood Culture - Preliminary Blood SPECIMEN COLLECTED A&P Assessment and plan (1) Acute hypoxemic respiratory failure: (2) Ischemic congestive cardiomyopathy: (3) End stage kidney disease: (4) NSTEMI (non-ST elevated myocardial infarction): (5) Left ventricular systolic dysfunction (LVSD), NYHA class 3: Plan Patient is feeling much better already Continue dialysis and pull out more fluid as suggested by nephrology Optimize medication to control blood pressure, will start patient on IV nitroglycerin Continue aspirin statin beta-courtney and clopidogrel Switch patient to Lovenox once a day Planning for left heart cath once euvolemic PDMP PDMP Reviewed: Not Reviewed Consult Attestations Medical Necessity Statement: Patient require continuation of hospitalization for above defined care Coding Level of Care Code Acute Code for [facility] Diagnoses Acute hypoxemic respiratory failure J96.01 Ischemic congestive cardiomyopathy I25.5; I42.0 End stage kidney disease N18.6 NSTEMI (non-ST elevated myocardial infarction) I21.4 Left ventricular systolic dysfunction (LVSD), NYHA class 3 I51.89
--- NOTE | 2024-10-14 15:04 | PC.NURSE ---
Dr. Green aware patient received dose of lovenox at 1349.
--- NOTE | 2024-10-14 15:34 | USCV_ITS ---
Jose Guadalupe Claudio Age: 44 Gender: M : 1980 Exam Date: 10/14/2024 08:21 Ordering Phys: Apurva Viveros MD Technologist: Marlon Serna [place] [facility] [place]: nstemi BP: 179 / 102 HR: Rhythm: Sinus Technical Quality: Adequate MEASUREMENTS (Male / Female) Normal Values 2D ECHO LV Diastolic Diameter PLAX 4.7 cm 4.2 - 5.9 / 3.9 - 5.3 cm IVS Diastolic Thickness 1.2 cm 0.6 - 1.0 / 0.6 - 0.9 cm IVS Systolic Thickness 1.3 cm LVPW Diastolic Thickness 1.7 cm 0.6 - 1.0 / 0.6 - 0.9 cm LVPW Systolic Thickness 1.9 cm LVOT Diameter 2.0 cm LV Ejection Fraction 2D Teich 29.6 % LV Ejection Fraction MOD 4C 30.7 % LV Ejection Fraction MOD 2C 35.1 % LV Ejection Fraction 2C AL 36.3 % LA Diameter 4.9 cm RA Systolic Volume 4C AL 51.7 ml RA Systolic Volume 4C MOD 51.8 ml LA Sys Volume AL 65.1 cm cubed LA Sys Volume Index AL 35.3 cm cubed/m squared Aorta at Sinotubular Diameter 1.7 cm IVC Diameter 1.5 cm M-MODE LA Ao Ratio MM 1.3 AV Cusp Separation MM 1.5 cm FINDINGS Left Ventricle Moderately increased left ventricular cavity size. Severely decreased left ventricular systolic function. Left ventricular ejection fraction is estimated at 35 %. Global left ventricular hypokinesis with regional wall motion abnormality suggestive of lateral wall segmental severe hypokinesis Right Ventricle Right Atrium Left Atrium Mitral Valve Aortic Valve Tricuspid Valve Pulmonic Valve Pericardium Aorta IVC CONCLUSIONS Limited echocardiogram to assess LV function Moderately increased left ventricular cavity size. Severely decreased left ventricular systolic function. Left ventricular ejection fraction is estimated at 35 %. Global left ventricular hypokinesis with regional wall motion abnormality suggestive of lateral wall segmental severe hypokinesis There is no pericardial effusion. Right atrial pressure is around 15 mm of mercury. Tia Green MD (Electronically Signed) Final Date: 14 October 2024 22:19 S
[2024-10-14 16:30] LABS: Partial Thromboplastin Time 65.6 SECONDS (23.9-36.7)
--- NOTE | 2024-10-14 17:57 | PC.NURSE ---
Dialysis today pulled 4L. Patient AOX4 throughout shift C/O headache relieved by Tylenol. Temperature elevated to 100.9, but then back down. Patient signed consent for Cath tomorrow, Dr Green. Patients is bringing appetite stimulate medication from home, Dr. Viveros aware of this.
--- NOTE | 2024-10-14 20:05 | PC.NURSE ---
Nitro gtt: upon arrival to shift, nitro gtt was paused. MAR updated to reflect dose.
[2024-10-14] MEDS: vancomycin 500 MG in sodium chloride 0.9% (plus) 100 ML 200 MG IV (20:11)
[2024-10-15] VITALS (83 sets, daily range): BP systolic 136–180; BP diastolic 85–130; PULSE 63–78; RESP 7–29; TEMP 36.6–36.8; O2SAT 90–100; BMI 20.4
[2024-10-15] MEDS: piperacillin-tazobactam 3.375 GM in sodium chloride 0.9% (plus) 50 ML IV ×2 (02:46→14:42)
[2024-10-15 03:33] LABS: ABG PCO2 31.7 mmHg (35-45); ABG PH Result 7.52 (7.35-7.45); Arterial Blood Gas Hematocrit 36.9 % (42-52); Blood Gas Allen Test Pos; Blood Gas LPM 5.0 %; Blood Gas Operator Identificat BD; Blood Gas Sample Site Brachial, left; Blood Gas Sample Type Arterial; HCO3 ABG 25.6 mmol/L (22-26); PO2 ABG 71.4 mmHg (80.0-100.0); PO2 FiO2 Ratio Arterial Blood 178
[2024-10-15 05:23] LABS: Hematocrit 37.4 % (37-53); Hemoglobin 11.70 g/dL (11.27-16.99); Mean Corpuscular HGB Conc 31.3 g/dL (30-55); Mean Corpuscular Hemoglobin 29.0 pg (27-33); Mean Corpuscular Volume 92.6 fl (82-101); Nucleated Red Blood Cells % 0 %; Platelet Count 144 10^3/cmm (157-399); Red Blood Count 4.04 10^6/uL (3.85-5.65); White Blood Count 8.30 10^3/uL (3.29-11.43)
[2024-10-15 05:40] LABS: Magnesium 2.4 mg/dL (1.7-2.3)
[2024-10-15 05:41] LABS: Alanine Aminotransferase 7 U/L (0-41); Albumin Level 3.4 g/dL (3.5-5.2); Alkaline Phosphatase 51 U/L (40-130); Anion Gap 19.9 (5-19); Aspartate Amino Transferase 19 U/L (0-40); Blood Urea Nitrogen 21 mg/dL (6-20); Calcium 9.7 mg/dL (8.5-10.5); Carbon Dioxide 23 mmol/L (22-29); Chloride 99 mmol/L (98-107); Creatinine Clr Calc Pharmacy 23.1260; Globulin 4.1 g/dL (1.3-4.6); Glucose 128 mg/dL (65-115); Osmolality Calculated 291 mOsm/kg (285-295); Potassium 3.9 mmol/L (3.5-5.1); Sodium 138 mmol/L (136-145); Total Protein 7.5 g/dL (6.6-8.7)
[2024-10-15] MEDS: NIFEdipine ER (24 hr) 30 mg Tablet PO (08:47)
[2024-10-15] MEDS: venlafaxine ER (24HR) 150 mg Capsule PO (08:47)
[2024-10-15 11:03] LABS: Hematocrit 39.6 % (37-53); Hemoglobin 12.40 g/dL (11.27-16.99); Mean Corpuscular HGB Conc 31.3 g/dL (30-55); Mean Corpuscular Hemoglobin 28.6 pg (27-33); Mean Corpuscular Volume 91.5 fl (82-101); Nucleated Red Blood Cells % 0 %; Platelet Count 138 10^3/cmm (157-399); Red Blood Count 4.33 10^6/uL (3.85-5.65); White Blood Count 6.75 10^3/uL (3.29-11.43)
--- NOTE | 2024-10-15 11:29 | W.PM.OPSUD ---
Surgery/Procedure H&P Update DATE OF PROCEDURE: October 15, 2024 DATE H&P PERFORMED: 10/14/24 H&P UPDATE INFORMATION: I have reviewed H&P completed within last 30 days, I have examined patient prior to procedure and No changes to prior documentation PREOP DIAGNOSIS: [id number] M PRIMARY INDICATION FOR PROCEDURE: Patient has been explained all risk-benefit and alternative for the procedure. Patient understand 2% risk of stroke major bleed. Patient understand 5% risk of minor bleeding bruising infection hematoma. Patient understand risk for permanent dialysis he is already on permanent dialysis. Patient understand 5. Risk of urgent emergent bypass or vascular surgery. Patient understand 5% risk of pseudo aneurysm. Patient agrees to it and would like to proceed with that PLANNED PROCEDURE: Operation Date: 10/15/24 07:00 Proposed Procedures p Cardiac Catheterization(Left) - Tia Green MD PATIENT REASSESSED PRIOR TO SEDATION, WITH NO CHANGE NOTED: Yes PHYSICAL EXAM: alert, oriented x 3, clear to auscultation bilaterally, regular rate & rhythm and operative site marked AIRWAY EVAL/ANESTHESIA PLAN: ASA II, Risks, benefits & alternatives of sedation and/or procedure discussed and Patient agrees to continue as planned
--- NOTE | 2024-10-15 12:00 | PC.SOCIAL ---
IMM Update pg 2 of IMM updated and reviewed w/ patient. Copy provided and copy dated, initialed and placed in chart.
--- NOTE | 2024-10-15 12:16 | P.PN_ITS ---
Subjective 2 Subjective: no new c/o Medications: Reviewed: Yes Vitals/I&O/Wt Last Vital Signs Temp 98.1 F 10/15/24 08:30 Pulse 65 10/15/24 11:00 Resp 21 H 10/15/24 11:00 BP 151/93 10/15/24 11:15 Pulse Ox 100 10/15/24 11:00 O2 Del Method Nasal Cannula 10/15/24 08:30 O2 Flow Rate 5 10/15/24 08:30 FiO2 45 10/14/24 11:30 10/14/24 10/15/24 10/15/24 22:59 06:59 14:59 Intake Total 899.900 / 1416.580 50 / 1466.580 0 / 0 Output Total 4375 / 4375 Balance -3475.100 / -2958.420 50 / -2908.420 0 / 0 Weight last 48 hrs Weight 64.5 kg Weight 64.5 kg Weight 65.771 kg Weight 67.5 kg Weight 69.354 kg Weight 74.5 kg Weight 74.5 kg Physical Exam 2 Narrative: Patient is awake alert, no acute distress PERRLA S1-S2 regular rate rhythm per report Lungs with bilateral crackles Abdomen soft nontender per report No edema in the extremities On nonrebreather mask with 100% FiO2 Urinary Catheter Management: Ballesteros: Cath Placed During This Visit: yes Reason for Continuing Indwelling Catheter: Accurate Measurement of Urinary Output in Critically Ill Patients Urinary Catheter Date of Insertion: 10/13/24 Data 10/15/24 10:32 10/15/24 04:50 Micro: Microbiology 10/13/24 14:46 Blood Culture - Preliminary Blood NEGATIVE TO DATE 10/13/24 14:44 Blood Culture - Preliminary Blood NEGATIVE TO DATE 10/13/24 17:12 Bacterial Antigens - Final Urine,Clean Catch A&P Assessment and plan (1) End stage kidney disease: 1. End-stage renal disease: On TTS schedule as outpatient, patient now presents with acute on chronic respiratory failure, hypoxia and hyperkalemia. - hd x 2 sessions , next HD tomorrow - 2 g sodium restriction and 1500 mL fluid restriction 2. Hyperkalemia: Low K diet and HD as above 3. Hypertensive urgency: Blood pressures elevated to systolic 180s and diastolic in the 1 teens on presentation, reassess after HD and resume home medications 4. Anemia: Due to CKD, will give Epogen once blood pressure is under control in the next 1 to 2 days 5. Acute on chronic respiratory failure: Possible pulmonary edema and pneumonia, antibiotics per primary team and HD as above 6. NSTEMI : C today PDMP PDMP Reviewed: Not Reviewed Attestations 2 Medical Necessity Statement*: per demetrio Coding Level of Care Code Acute Code for [facility] Fwd Diagnoses End stage kidney disease N18.6
--- NOTE | 2024-10-15 12:33 | PM.PROC ---
Procedure Note: Date of procedure: 10/15/24 Pre-procedure diagnosis: [id number] M Post-procedure diagnosis: same Procedure: Left heart cath was performed Left main is normal LAD is chronically occluded Left circumflex has significant occlusion in the proximal segment RCA has moderate disease in the mid 60% stenosis LEON to LAD is patent Saphenous venous graft to diagonal branch is known to be chronically occluded, it is a skip graft to obtuse marginal 2 Saphenous venous graft to circumflex is chronically occluded RCA was never grafted High-grade in-stent restenosis to ostial diagonal stent it is the blood vessel which has skip graft to obtuse marginal, previously it was stented because saphenous venous graft to diagonal was closed while skip limb was open and patent. PCI to ostial diagonal branch with drug-eluting stent for severe in-stent restenosis. Drug-eluting stent was used which was postdilated with noncompliant balloon. Excellent angiographic result with [id number] flow was noted. Continue dual antiplatelet therapy in the form of Plavix aspirin Bedrest for 4 hours Patient can proceed with dialysis as scheduled Possible discharge tomorrow Coding Level of Care Code Acute Code for [facility]
--- NOTE | 2024-10-15 17:31 | PC.NURSE ---
Addendum entered by Katherine Lee RN 10/15/24 17:32: Lovenox order DC per Dr. Koehler orders. Original Note: Cath site starting to ooze. Notified Dr. Green, reinforced dressing added sand bag for pressure. V/S stable
--- NOTE | 2024-10-15 20:57 | P.PN_ITS ---
Subjective 2 Subjective: He states he is okay currently. No chest pain or pressure. Awaiting coronary angiography. Medications: Reviewed: Yes Vitals/I&O/Wt Last Vital Signs Temp 98.1 F 10/15/24 08:30 Pulse 71 10/15/24 18:15 Resp 17 10/15/24 18:15 BP 159/104 10/15/24 17:30 Pulse Ox 97 10/15/24 18:15 O2 Del Method Nasal Cannula 10/15/24 08:30 O2 Flow Rate 5 10/15/24 08:30 FiO2 45 10/14/24 11:30 10/15/24 10/15/24 10/15/24 06:59 14:59 22:59 Intake Total 50 / 1466.580 360 / 360 290 / 650 Balance 50 / -2908.420 360 / 360 290 / 650 Weight last 48 hrs Weight 64.5 kg Weight 64.5 kg Weight 65.771 kg Weight 67.5 kg Weight 69.354 kg Weight 74.5 kg Physical Exam 2 Const: COMMON NORMALS: patient oriented x3 and alert GENERAL APPEARANCE: c ooperative ORIENTATION/CONSCIOUSNESS: Yes awake HENMT: COMMON NORMALS: oropharynx normal Neck/C-Spine: COMMON NORMALS: no JVD Resp: COMMON NORMALS: normal respiratory effort and clear to auscultation bilaterally AUSCULTATION: clear to auscultation bilaterally Cardio: COMMON NORMALS: no JVD, regular rhythm, S1 normal heart sound present, S2 normal heart sound present and No murmurs present (Cardio) RHYTHM: regular rhythm HEART SOUNDS: S1 normal heart sound present and S2 normal heart sound present GI: COMMON NORMALS: Normal to inspection, nondistended, normoactive bowel sounds present, Soft to palpation and non-tender PALPATION: Yes Soft to palpation Extremity: COMMON NORMALS: no joint enlargement and no pedal edema Neuro: COMMON NORMALS: patient oriented x3 and moves all extremities S ENSORIUM/ORIENTATION: Yes alert Skin: COMMON NORMALS: no rashes or lesions noted GENERAL SKIN EXAM: no rashes or lesions noted Urinary Catheter Management: Ballesteros: Cath Placed During This Visit: yes Reason for Continuing Indwelling Catheter: Accurate Measurement of Urinary Output in Critically Ill Patients Urinary Catheter Date of Insertion: 10/13/24 Data 10/15/24 10:32 10/15/24 04:50 A&P Assessment and plan (1) Chronic hypertension: (2) Ischemic congestive cardiomyopathy: (3) Elevated troponin: (4) Pulmonary embolism: (5) End stage kidney disease: (6) Pneumonia: (7) Pulmonary edema: (8) Acute hypoxemic respiratory failure: (9) Breath shortness: (10) Diabetic peripheral neuropathy associated with type 2 diabetes mellitus: Plan #Acute on chronic combined systolic diastolic heart failure exacerbation #Acute hypoxia respiratory failure #Missed dialysis #End-stage renal disease Tuesday #Bilateral multifocal pneumonia #History of CABG with triple-vessel disease status post coronary angiogram with PCI, balloon angioplasty, drug-eluting stent August 21, 2024 #On anticoagulation for recent unprovoked PE #History of stroke Reviewed vitals, CBC, intake and output, ABG, CMP, Vanco trough. No chest pain today. Awaiting coronary angiography for treatment of NSTEMI. Reviewed cardiology note, noted CAD including chronically occluded LAD significant occlusion of LCx and 60% RCA. 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 With noted high-grade in-stent restenosis to ostial diagonal stent. PCI was performed to ostial diagonal branch with DAY for severe in-stent restenosis. Receiving from IV hydration after angiogram, monitor for risk of fluid overload. Reassess volume status. Continue aspirin Plavix, carvedilol. Increase nifedipine to 60 mg. Monitor for risk of hypotension. Discussed with nursing, nurse case manager. Continue dialysis. Continue medication of hypertension. Continue carvedilol, hydralazine, lisinopril, nifedipine, clonidine. Stop amlodipine since he is already on nifedipine. Continue vancomycin and Zosyn to treat for pneumonia Reviewed bacterial antigen Legionella, Streptococcus PDMP PDMP Reviewed: Not Reviewed Attestations 2 Medical Necessity Statement*: Can you postcardiac catheterization care after NSTEMI and revascularization, continue treatment of pneumonia, optimization of resistant hypertension. and High MDM includes amount and/or complexity of data reviewed/ordered [ previous or external records, resulted lab(s)/test(s) and other healthcare professional discussion] and described risk of complication, morbidity or mortality of management as documented Diagnoses Chronic hypertension I10 Ischemic congestive cardiomyopathy I25.5; I42.0 Elevated troponin R79.89 Multiple subsegmental pulmonary emboli without acute cor pulmonale I26.94 Pulmonary embolism type: multiple subsegmental (without acute cor pulmonale) End stage kidney disease N18.6 Pneumonia J18.9 Pulmonary edema J81.1 Acute hypoxemic respiratory failure J96.01 Breath shortness R06.02 Diabetic peripheral neuropathy associated with type 2 diabetes mellitus E11.42
[2024-10-16] VITALS (32 sets, daily range): BP systolic 122–182; BP diastolic 78–114; PULSE 64–77; RESP 10–24; TEMP 36.3–36.8; O2SAT 95–100
[2024-10-16] MEDS: piperacillin-tazobactam 3.375 GM in sodium chloride 0.9% (plus) 50 ML IV ×2 (03:40→15:17)
[2024-10-16 03:47] LABS: Alanine Aminotransferase < 5 U/L (0-41); Albumin Level 3.3 g/dL (3.5-5.2); Alkaline Phosphatase 48 U/L (40-130); Anion Gap 22.5 (5-19); Aspartate Amino Transferase 10 U/L (0-40); Blood Urea Nitrogen 32 mg/dL (6-20); Calcium 9.3 mg/dL (8.5-10.5); Carbon Dioxide 22 mmol/L (22-29); Chloride 97 mmol/L (98-107); Creatinine Clr Calc Pharmacy 16.1111; Globulin 3.8 g/dL (1.3-4.6); Glucose 125 mg/dL (65-115); Osmolality Calculated 292 mOsm/kg (285-295); Potassium 4.5 mmol/L (3.5-5.1); Sodium 137 mmol/L (136-145); Total Protein 7.1 g/dL (6.6-8.7)
[2024-10-16 05:52] LABS: ABG PCO2 31.4 mmHg (35-45); ABG PH Result 7.48 (7.35-7.45); Arterial Blood Gas Hematocrit 37.4 % (42-52); Blood Gas LPM 6.0 %; Blood Gas Operator Identificat SAM; Blood Gas Sample Site Brachial, right; Blood Gas Sample Type Arterial; HCO3 ABG 23.1 mmol/L (22-26); PO2 ABG 75.6 mmHg (80.0-100.0)
--- NOTE | 2024-10-16 06:44 | PC.NURSE ---
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 Dressing saturated. removed. Pressure held to stop site bleeding x 30 minutes. Homeostases obtained, new dressing to site with sand bag in place.
[2024-10-16] MEDS: venlafaxine ER (24HR) 150 mg Capsule PO (08:31)
[2024-10-16] MEDS: NIFEdipine ER (24 hr) 30 mg Tablet 60 MG PO (08:31)
[2024-10-16 11:06] LABS: Hematocrit 36.4 % (37-53); Hemoglobin 11.20 g/dL (11.27-16.99); Mean Corpuscular HGB Conc 30.8 g/dL (30-55); Mean Corpuscular Hemoglobin 28.3 pg (27-33); Mean Corpuscular Volume 91.9 fl (82-101); Nucleated Red Blood Cells % 0 %; Platelet Count 136 10^3/cmm (157-399); Red Blood Count 3.96 10^6/uL (3.85-5.65); White Blood Count 8.17 10^3/uL (3.29-11.43)
--- NOTE | 2024-10-16 13:22 | P.PN_ITS ---
<Statement entered by Tia Green MD - 10/16/24 20:32> Patient was evaluated and cared for in conjunction with an advanced practice practitioner. I personally examined the patient and reviewed the chart and all pertinent data including imaging, telemetry, and laboratory results. I discussed the patient in detail with the advanced practice practitioner. Please see their note for complete H&P testing result and agreed upon plan of care for the patient. Patient denies any complaint he is status post PCI to diagonal branch for high- grade in-stent restenosis yesterday. He had last night oozing from the right groin. Lovenox was stopped GENERAL: Patient is alert, awake and oriented x3. HEART: Regular S1 and S2. No murmur, rub or gallop. LUNGS: Clear to auscultate bilaterally. CENTRAL NERVOUS SYSTEM: Grossly nonfocal. EXTREMITIES: Lower extremities with out edema bilaterally. Right common femoral artery Angio-Seal site looks good no hematoma Assessment and plan Non-ST elevation SC: Status post drug-eluting stent to ostial diagonal branch for severe in-stent restenosis Chronic kidney disease on hemodialysis Possible pneumonia , on treatment as per medicine History of pulmonary embolism on warfarin Continue aspirin and statin clopidogrel and warfarin Continue home medications Dialysis as per medicine and nephrology From a cardiovascular perspective patient can be moved out of the ICU Subjective 2 Subjective: Currently having dialysis treatment. He underwent coronary angiogram yesterday, PCI to ostial diagonal branch for in-stent restenosis. No chest pain or shortness of breath. Blood pressure elevated. Vitals/I&O/Wt Last Vital Signs Temp 98.3 F 10/16/24 08:00 Pulse 67 10/16/24 10:00 Resp 19 H 10/16/24 10:00 BP 158/92 10/16/24 10:00 Pulse Ox 99 10/16/24 12:40 O2 Del Method Nasal Cannula 10/16/24 12:40 O2 Flow Rate 5 10/16/24 12:40 FiO2 6 10/16/24 06:00 10/15/24 10/16/24 10/16/24 22:59 06:59 14:59 Intake Total 490 / 1850 1000 / 1850 170 / 170 Output Total 100 / 100 0 / 0 Balance 490 / 1750 900 / 1750 170 / 170 Weight last 48 hrs Weight 146 lb 9.718 oz Weight 142 lb 3.17 oz Weight 142 lb 3.17 oz Weight 145 lb Weight 148 lb 12.992 oz Physical Exam 2 Const: COMMON NORMALS: no acute distress and patient oriented x3 GENERAL APPEARANCE: cooperative ORIENTATION/CONSCIOUSNESS: Yes awake, Yes oriented to person, Yes oriented to place and Yes oriented to time Chest: COMMONS NORMALS: normal inspection of the chest and normal palpation of entire chest wall CHEST: Yes Symmetrical chest wall rise Resp: COMMON NORMALS: normal respiratory effort, No retractions, No use of accessory muscles and clear to auscultation bilaterally AUSCULTATION: clear to auscultation bilaterally Cardio: COMMON NORMALS: regular rate, regular rhythm, S1 normal heart sound present, S2 normal heart sound present, No gallops present (Cardio), No clicks present (Cardio), No murmurs present (Cardio) and No rub (Cardio) RATE: r egular rate RHYTHM: regular rhythm HEART SOUNDS: S1 normal heart sound present and S2 normal heart sound present PERIPHERAL PULSES: radial pulses present positive right 2+ and femoral pulses present positive right 2+ Neuro: COMMON NORMALS: patient oriented x3 and moves all extremities S ENSORIUM/ORIENTATION: Yes oriented to person, Yes oriented to place and Yes oriented to time Skin: WOUNDS: Yes surgical site (no hematoma palpable) Details: no odor Urinary Catheter Management: Ballesteros: Cath Placed During This Visit: yes Reason for Continuing Indwelling Catheter: Accurate Measurement of Urinary Output in Critically Ill Patients Urinary Catheter Date of Insertion: 10/13/24 Data 10/16/24 10:42 10/16/24 02:51 A&P Assessment and plan 1. NSTEMI (non-ST elevated myocardial infarction): 2. Hx of CAB. Chronic hypertension: 4. Left ventricular systolic dysfunction (LVSD), NYHA class 3: 5. End stage kidney disease: 6. Ischemic congestive cardiomyopathy: Plan: He is feeling better s/p stent to diagonal. He is on multiple antihypertensives-carvedilol, hydralazine, nifedipine, lisinopril, clonidine. Continue aspirin, Plavix. He had a high oxygen requirement this morning, under investigation, down to 5 L currently. May discharge when okay with hospitalist service. Follow up with cardiology clinic in 2 weeks after discharge. PDMP PDMP Reviewed: Not Reviewed Attestations 2 Medical Necessity Statement*: per hospitalist Coding Level of Care Code Acute Code for Chg Fwd Diagnoses NSTEMI (non-ST elevated myocardial infarction) I21.4 Hx of CABG Z95.1 Chronic hypertension I10 Left ventricular systolic dysfunction (LVSD), NYHA class 3 I51.89 End stage kidney disease N18.6 Ischemic congestive cardiomyopathy I25.5; I42.0
--- NOTE | 2024-10-16 16:30 | PC.NURSE ---
pts home meds given to pts to take home.
--- NOTE | 2024-10-16 16:54 | PM.PN ---
Subjective Subjective: He reports he is doing well. There was some oozing of blood from the right groin access site overnight, but is doing well now. Discussed with him to monitor for any pulsatile mass, further bleeding, and if so to seek medical attention. He is still coughing, with productive cough. He is not normally on oxygen. Vitals/I&O/Wt Last Vital Signs Temp 97.3 F L 10/16/24 16:33 Pulse 76 10/16/24 16:33 Resp 15 10/16/24 16:33 BP 172/114 10/16/24 16:33 Pulse Ox 100 10/16/24 16:00 O2 Del Method Nasal Cannula 10/16/24 12:40 O2 Flow Rate 5 10/16/24 12:40 FiO2 6 10/16/24 06:00 10/16/24 10/16/24 10/16/24 06:59 14:59 22:59 Intake Total 1000 / 1850 170 / 170 660 / 830 Output Total 100 / 100 0 / 0 3800 / 3800 Balance 900 / 1750 170 / 170 -3140 / -2970 Weight last 48 hrs Weight 64.5 kg Weight 66.5 kg Weight 64.5 kg Weight 64.5 kg Weight 65.771 kg Weight 67.5 kg Physical Exam Const: COMMON NORMALS: patient oriented x3 and alert GENERAL APPEARANCE: cooperative ORIENTATION/CONSCIOUSNESS: Yes awake HENMT: COMMON NORMALS: oropharynx normal Neck/C-Spine: COMMON NORMALS: no JVD Resp: COMMON NORMALS: normal respiratory effort and clear to auscultation bilaterally AUSCULTATION: clear to auscultation bilaterally Cardio: COMMON NORMALS: no JVD, regular rhythm, S1 normal heart sound present, S2 normal heart sound present and No murmurs present (Cardio) RHYTHM: regular rhythm HEART SOUNDS: S1 normal heart sound present and S2 normal heart sound present GI: COMMON NORMALS: Normal to inspection, nondistended, normoactive bowel sounds present, Soft to palpation and non-tender PALPATION: Yes Soft to palpation Extremity: COMMON NORMALS: no joint enlargement and no pedal edema NARRATIVE EXTREMITY EXAM: Right groin access site dressing, no pulsatile mass, no surrounding bruising, no bleeding. Neuro: COMMON NORMALS: patient oriented x3 and moves all extremities SENSORIUM/ORIENTATION: Yes alert Skin: COMMON NORMALS: no rashes or lesions noted GENERAL SKIN EXAM: no rashes or lesions noted Urinary Catheter Management: Ballesteros: Cath Placed During This Visit: yes Reason for Continuing Indwelling Catheter: Accurate Measurement of Urinary Output in Critically Ill Patients Urinary Catheter Date of Insertion: 10/13/24 Data 10/16/24 10:42 10/16/24 02:51 A&P Assessment and plan 1. Chronic hypertension: 2. Ischemic congestive cardiomyopathy: 3. Elevated troponin: 4. Multiple subsegmental pulmonary emboli without acute cor pulmonale: 5. End stage kidney disease: 6. Pneumonia: 7. Pulmonary edema: 8. Acute hypoxemic respiratory failure: 9. Breath shortness: 10. Diabetic peripheral neuropathy associated with type 2 diabetes mellitus: Plan: #Acute on chronic combined systolic diastolic heart failure exacerbation #Acute hypoxia respiratory failure #Missed dialysis #End-stage renal disease Tuesday #Bilateral multifocal pneumonia #History of CABG with triple-vessel disease status post coronary angiogram with PCI, balloon angioplasty, drug-eluting stent August 21, 2024 #On anticoagulation for recent unprovoked PE #History of stroke He still requiring 6 L of oxygen, gradually improving down to 5 L requirement by the end of the evening. Still having productive cough. Multifocal pneumonia noted on CTA. No PE. He otherwise appears volume compensated. Continue IV antibiotics at this time including MRSA coverage, reviewed prior MRSA PCR noted positive. Reviewed sputum culture, not collected so far, discussed with him. Requesting Mucinex, flutter valve. Reviewed vitals, CBC, intake and output, ABG, CMP, Vanco trough. Continue Zosyn, vancomycin for multifocal pneumonia, monitor for risk of cytopenia, C. difficile, SJS. Repeat blood counts. Transfer orders again placed this time to medical surgical floor. Status post coronary angiography with PCI and stent to ostial diagonal branch for in-stent restenosis. Doing well subsequently, did have some blood oozing from the access site in the right groin. Reviewed cardiology note, noted CAD including chronically occluded LAD significant occlusion of LCx and 60% RCA. 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 With noted high-grade in-stent restenosis to ostial diagonal stent. PCI was performed to ostial diagonal branch with DAY for severe in-stent restenosis. He is otherwise doing well okay for discharge once ready from cardiac perspective. IV fluid had been discontinued. Continue dialysis. Repeat chemistry. Continue medication of hypertension. Continue carvedilol, hydralazine, lisinopril, nifedipine, clonidine. Nifedipine dose was increased to 60 mg. Monitor for risk of hypotension. Continue cardiac diet. Discussed with nursing, outpatient case manager. PDMP PDMP Reviewed: Not Reviewed Attestations Medical Necessity Statement*: Continue admission for further management of respiratory failure, hypoxia with multifocal pneumonia. and High MDM includes amount and/or complexity of data reviewed/ordered [ resulted lab(s)/test(s), ordered lab(s)/test(s) and other healthcare professional discussion] and described risk of complication, morbidity or mortality of management as documented Diagnoses Chronic hypertension I10 Ischemic congestive cardiomyopathy I25.5; I42.0 Elevated troponin R79.89 Multiple subsegmental pulmonary emboli without acute cor pulmonale I26.94 Pulmonary embolism type: multiple subsegmental (without acute cor pulmonale) End stage kidney disease N18.6 Pneumonia J18.9 Pulmonary edema J81.1 Acute hypoxemic respiratory failure J96.01 Breath shortness R06.02 Diabetic peripheral neuropathy associated with type 2 diabetes mellitus E11.42
--- NOTE | 2024-10-16 20:35 | P.PN_ITS ---
Subjective 2 Subjective: no new c/o Medications: Reviewed: Yes Vitals/I&O/Wt Last Vital Signs Temp 97.3 F L 10/16/24 16:33 Pulse 69 10/16/24 19:38 Resp 21 H 10/16/24 19:38 BP 133/83 10/16/24 19:38 Pulse Ox 100 10/16/24 19:00 O2 Del Method Nasal Cannula 10/16/24 19:00 O2 Flow Rate 5 10/16/24 19:00 FiO2 6 10/16/24 06:00 10/16/24 10/16/24 10/16/24 06:59 14:59 22:59 Intake Total 1000 / 1850 170 / 170 1500 / 1670 Output Total 100 / 100 0 / 0 3802 / 3802 Balance 900 / 1750 170 / 170 -2302 / -2132 Weight last 48 hrs Weight 64.5 kg Weight 66.5 kg Weight 64.5 kg Weight 64.5 kg Physical Exam 2 Narrative: Patient is awake alert, no acute distress PERRLA S1-S2 regular rate rhythm per report Lungs with bilateral crackles Abdomen soft nontender per report No edema in the extremities On nonrebreather mask with 100% FiO2 Urinary Catheter Management: Ballesteros: Cath Placed During This Visit: yes Reason for Continuing Indwelling Catheter: Accurate Measurement of Urinary Output in Critically Ill Patients Urinary Catheter Date of Insertion: 10/13/24 Data 10/16/24 10:42 10/16/24 02:51 A&P Assessment and plan 1. End stage kidney disease: 1. End-stage renal disease: On TTS schedule as outpatient, patient now presents with acute on chronic respiratory failure, hypoxia and hyperkalemia. - hd x 2 sessions , next HD today - 2 g sodium restriction and 1500 mL fluid restriction 2. Hyperkalemia: Low K diet and HD as above 3. Hypertensive urgency: Blood pressures elevated to systolic 180s and diastolic in the 1 teens on presentation, reassess after HD and resume home medications 4. Anemia: Due to CKD, will give Epogen once blood pressure is under control in the next 1 to 2 days 5. Acute on chronic respiratory failure: Possible pulmonary edema and pneumonia, antibiotics per primary team and HD as above 6. NSTEMI : s/p LHC PDMP PDMP Reviewed: Not Reviewed Attestations 2 Medical Necessity Statement*: per mediicne Coding Level of Care Code Acute Code for Chg Fwd Diagnoses End stage kidney disease N18.6
[2024-10-16] MEDS: vancomycin 500 MG in sodium chloride 0.9% (plus) 100 ML 200 MG IV (20:43)
[2024-10-17] VITALS (18 sets, daily range): BP systolic 134–187; BP diastolic 86–132; PULSE 67–83; RESP 10–33; TEMP 36.6–37.6; O2SAT 93–100
--- NOTE | 2024-10-17 00:44 | PC.NURSE ---
Patient with 5 beat run off vtach, monitor alarm woke patient up. Denies pain or shortness of breath bp 151/93. o2 saturations 100 % on [address] Silva reviewed rhythm strip. orders: continue to monitor patient as directed.
[2024-10-17 03:16] LABS: Hematocrit 36.9 % (37-53); Hemoglobin 11.70 g/dL (11.27-16.99); Mean Corpuscular HGB Conc 31.7 g/dL (30-55); Mean Corpuscular Hemoglobin 28.5 pg (27-33); Mean Corpuscular Volume 89.8 fl (82-101); Nucleated Red Blood Cells % 0 %; Platelet Count 157 10^3/cmm (157-399); Red Blood Count 4.11 10^6/uL (3.85-5.65); White Blood Count 6.76 10^3/uL (3.29-11.43)
[2024-10-17] MEDS: piperacillin-tazobactam 3.375 GM in sodium chloride 0.9% (plus) 50 ML IV ×2 (03:28→14:59)
[2024-10-17 03:32] LABS: Anion Gap 20.5 (5-19); Blood Urea Nitrogen 24 mg/dL (6-20); Calcium 9.7 mg/dL (8.5-10.5); Carbon Dioxide 23 mmol/L (22-29); Chloride 98 mmol/L (98-107); Creatinine Clr Calc Pharmacy 19.9638; Glucose 98 mg/dL (65-115); Osmolality Calculated 288 mOsm/kg (285-295); Potassium 4.5 mmol/L (3.5-5.1); Sodium 137 mmol/L (136-145)
[2024-10-17] MEDS: NIFEdipine ER (24 hr) 30 mg Tablet 60 MG PO (09:15)
[2024-10-17] MEDS: venlafaxine ER (24HR) 150 mg Capsule PO (09:16)
[2024-10-17 09:49] LABS: Estmated Average Glucose 105; Hemoglobin A1C 5.3 % (4.0-6.0)
[2024-10-17 10:01] LABS: Thyroid Stimulating Hormone 10.43 uIU/mL (0.27-4.20)
--- NOTE | 2024-10-17 10:35 | PM.PN ---
Subjective Subjective: s/p HD yesterday Medications: Reviewed: Yes Vitals/I&O/Wt Last Vital Signs Temp 97.3 F L 10/16/24 16:33 Pulse 69 10/17/24 08:00 Resp 16 10/17/24 08:00 BP 187/104 10/17/24 09:13 Pulse Ox 95 10/17/24 08:00 O2 Del Method Room Air 10/17/24 08:00 O2 Flow Rate 2 10/17/24 04:00 FiO2 6 10/16/24 06:00 10/16/24 10/17/24 10/17/24 22:59 06:59 14:59 Intake Total 1750 / 1920 50 / 50 Output Total 3802 / 3802 Balance -2051 / -1881 50 / 50 Weight last 48 hrs Weight 64.5 kg Weight 66.5 kg Physical Exam Narrative: Patient is awake alert, no acute distress PERRLA S1-S2 regular rate rhythm per report Lungs with bilateral crackles Abdomen soft nontender per report No edema in the extremities On nonrebreather mask with 100% FiO2 Urinary Catheter Management: Ballesteros: Cath Placed During This Visit: yes Reason for Continuing Indwelling Catheter: Accurate Measurement of Urinary Output in Critically Ill Patients Urinary Catheter Date of Insertion: 10/13/24 Data 10/17/24 03:05 10/17/24 03:05 A&P Assessment and plan 1. End stage kidney disease: 1. End-stage renal disease: On TTS schedule as outpatient, patient now presents with acute on chronic respiratory failure, hypoxia and hyperkalemia. - hd x 2 sessions , next HD tomorrow - 2 g sodium restriction and 1500 mL fluid restriction 2. Hyperkalemia: Low K diet and HD as above 3. Hypertensive urgency: Blood pressures elevated to systolic 180s and diastolic in the 1 teens on presentation, reassess after HD and resume home medications 4. Anemia: Due to CKD, will give Epogen once blood pressure is under control in the next 1 to 2 days 5. Acute on chronic respiratory failure: Possible pulmonary edema and pneumonia, antibiotics per primary team and HD as above 6. NSTEMI : s/p [facility] PDMP PDMP Reviewed: Not Reviewed Attestations Medical Necessity Statement*: per demetrio Coding Level of Care Code Acute Code for Chg Fwd Diagnoses End stage kidney disease N18.6
--- NOTE | 2024-10-17 11:22 | P.PN_ITS ---
Subjective 2 Subjective: no new c/o Medications: Reviewed: Yes Vitals/I&O/Wt Last Vital Signs Temp 99.7 F H 10/17/24 08:00 Pulse 75 10/17/24 10:30 Resp 12 10/17/24 10:30 BP 164/94 10/17/24 10:30 Pulse Ox 97 10/17/24 10:30 O2 Del Method Room Air 10/17/24 09:00 O2 Flow Rate 2 10/17/24 04:00 FiO2 6 10/16/24 06:00 10/16/24 10/17/24 10/17/24 22:59 06:59 14:59 Intake Total 1750 / 1920 50 / 50 Output Total 3802 / 3802 Balance -2051 / -1881 50 / 50 Weight last 48 hrs Weight 64.5 kg Weight 66.5 kg Physical Exam 2 Narrative: Patient is awake alert, no acute distress PERRLA S1-S2 regular rate rhythm per report Lungs with bilateral crackles Abdomen soft nontender per report No edema in the extremities Urinary Catheter Management: Ballesteros: Cath Placed During This Visit: yes Reason for Continuing Indwelling Catheter: Accurate Measurement of Urinary Output in Critically Ill Patients Urinary Catheter Date of Insertion: 10/13/24 Data 10/17/24 03:05 10/17/24 03:05 A&P Assessment and plan 1. End stage kidney disease: 1. End-stage renal disease: On TTS schedule as outpatient, patient now presents with acute on chronic respiratory failure, hypoxia and hyperkalemia. - hd x 2 sessions, next HD today - 2 g sodium restriction and 1500 mL fluid restriction 2. Hyperkalemia: Low K diet and HD as above 3. Hypertensive urgency: Blood pressures elevated to systolic 180s and diastolic in the 1 teens on presentation, reassess after HD and resume home medications 4. Anemia: Due to CKD, will give Epogen once blood pressure is under control in the next 1 to 2 days 5. Acute on chronic respiratory failure: Possible pulmonary edema and pneumonia, antibiotics per primary team and HD as above 6. NSTEMI : s/p C PDMP PDMP Reviewed: Not Reviewed Attestations 2 Medical Necessity Statement*: per demetrio Coding Level of Care Code Acute Code for Chg Fwd Diagnoses End stage kidney disease N18.6
[2024-10-17] MEDS: NIFEdipine ER (24 hr) 30 mg Tablet PO (12:10)
--- NOTE | 2024-10-17 12:39 | P.PN_ITS ---
<Statement entered by Julio Monaco M.D - 10/21/24 13:37> Patient was cared for in conjunction with an advanced practice practitioner.? I reviewed the chart and all pertinent data including imaging, telemetry, and laboratory results.? I discussed the patient in detail with the advanced practice practitioner.? Please see their note for complete progress note, testing results and agreed upon plan of care for the patient. Subjective 2 Subjective: He is doing well after PCI of the diagonal on 10/15/2024. No chest pain or shortness of breath today. No complications with right femoral cath site. He appears euvolemic, received dialysis yesterday. Vitals/I&O/Wt Last Vital Signs Temp 99.7 F H 10/17/24 08:00 Pulse 75 10/17/24 10:30 Resp 12 10/17/24 10:30 BP 164/94 10/17/24 10:30 Pulse Ox 97 10/17/24 10:30 O2 Del Method Room Air 10/17/24 09:00 O2 Flow Rate 2 10/17/24 04:00 FiO2 6 10/16/24 06:00 10/16/24 10/17/24 10/17/24 22:59 06:59 14:59 Intake Total 1750 / 1920 50 / 50 Output Total 3802 / 3802 Balance -2051 / -1882 50 / 50 Weight last 48 hrs Weight 142 lb 3.17 oz Weight 146 lb 9.718 oz Physical Exam 2 Const: COMMON NORMALS: no acute distress and patient oriented x3 GENERAL APPEARANCE: cooperative ORIENTATION/CONSCIOUSNESS: Yes awake, Yes oriented to person, Yes oriented to place and Yes oriented to time Chest: COMMONS NORMALS: normal inspection of the chest and normal palpation of entire chest wall CHEST: Yes Symmetrical chest wall rise Resp: COMMON NORMALS: normal respiratory effort, No retractions, No use of accessory muscles and clear to auscultation bilaterally AUSCULTATION: clear to auscultation bilaterally Cardio: COMMON NORMALS: regular rate, regular rhythm, S1 normal heart sound present, S2 normal heart sound present, No gallops present (Cardio), No clicks present (Cardio), No murmurs present (Cardio) and No rub (Cardio) RATE: r egular rate RHYTHM: regular rhythm HEART SOUNDS: S1 normal heart sound present and S2 normal heart sound present PERIPHERAL PULSES: radial pulses present positive right 2+ and femoral pulses present positive right 2+ Neuro: COMMON NORMALS: patient oriented x3 and moves all extremities S ENSORIUM/ORIENTATION: Yes oriented to person, Yes oriented to place and Yes oriented to time Skin: WOUNDS: Yes surgical site (no hematoma palpable) Details: no odor Urinary Catheter Management: Ballesteros: Cath Placed During This Visit: yes Reason for Continuing Indwelling Catheter: Accurate Measurement of Urinary Output in Critically Ill Patients Urinary Catheter Date of Insertion: 10/13/24 Data 10/17/24 03:05 10/17/24 03:05 A&P Assessment and plan 1. NSTEMI (non-ST elevated myocardial infarction): 2. Hx of CAB. Chronic hypertension: 4. Left ventricular systolic dysfunction (LVSD), NYHA class 3: 5. End stage kidney disease: 6. Ischemic congestive cardiomyopathy: Plan: He is saturating 97% on room air this morning. He may discharge home when okay with hospitalist service. Continue carvedilol, hydralazine, nifedipine, lisinopril, clonidine, aspirin, Plavix. Follow-up in 2 weeks with cardiology clinic. PDMP PDMP Reviewed: Not Reviewed Attestations 2 Medical Necessity Statement*: Possible discharge today Coding Level of Care Code Acute Code for [facility] Diagnoses NSTEMI (non-ST elevated myocardial infarction) I21.4 Hx of CABG Z95.1 Chronic hypertension I10 Left ventricular systolic dysfunction (LVSD), NYHA class 3 I51.89 End stage kidney disease N18.6 Ischemic congestive cardiomyopathy I25.5; I42.0
--- NOTE | 2024-10-17 13:50 | PC.SOCIAL ---
IMM Update pg 2 of IMM Updated and reviewed w/ patient. Copy provided and copy dated, initialed and placed in chart.
--- NOTE | 2024-10-17 14:00 | P.PN_ITS ---
Subjective 2 Subjective: Hospital course, labs appreciated. Today morning examination patient seen laying comfortably in bed, on room air. Blood pressure slightly elevated better than before. Denies any nausea, matting, headache. Tmax at today morning 99.7 Fahrenheit. Medications: Reviewed: Yes Vitals/I&O/Wt Last Vital Signs Temp 99.7 F H 10/17/24 08:00 Pulse 75 10/17/24 10:30 Resp 12 10/17/24 10:30 BP 164/94 10/17/24 10:30 Pulse Ox 97 10/17/24 10:30 O2 Del Method Room Air 10/17/24 09:00 O2 Flow Rate 2 10/17/24 04:00 FiO2 6 10/16/24 06:00 10/16/24 10/17/24 10/17/24 22:59 06:59 14:59 Intake Total 1750 / 1920 740 / 740 Output Total 3802 / 3802 Balance -2052 / -1882 740 / 740 Weight last 48 hrs Weight 64.5 kg Weight 66.5 kg Physical Exam 2 Const: COMMON NORMALS: patient oriented x3 and alert GENERAL APPEARANCE: c ooperative ORIENTATION/CONSCIOUSNESS: Yes awake HENMT: COMMON NORMALS: oropharynx normal Neck/C-Spine: COMMON NORMALS: no JVD Resp: COMMON NORMALS: normal respiratory effort and clear to auscultation bilaterally AUSCULTATION: clear to auscultation bilaterally Cardio: COMMON NORMALS: no JVD, regular rhythm, S1 normal heart sound present, S2 normal heart sound present and No murmurs present (Cardio) RHYTHM: regular rhythm HEART SOUNDS: S1 normal heart sound present and S2 normal heart sound present GI: COMMON NORMALS: Normal to inspection, nondistended, normoactive bowel sounds present, Soft to palpation and non-tender PALPATION: Yes Soft to palpation Extremity: COMMON NORMALS: no joint enlargement and no pedal edema N ARRATIVE EXTREMITY EXAM: Right groin access site dressing, no pulsatile mass, no surrounding bruising, no bleeding. Neuro: COMMON NORMALS: patient oriented x3 and moves all extremities S ENSORIUM/ORIENTATION: Yes alert Skin: COMMON NORMALS: no rashes or lesions noted GENERAL SKIN EXAM: no rashes or lesions noted Urinary Catheter Management: Ballesteros: Cath Placed During This Visit: yes Reason for Continuing Indwelling Catheter: Accurate Measurement of Urinary Output in Critically Ill Patients Urinary Catheter Date of Insertion: 10/13/24 Data 10/17/24 03:05 10/17/24 03:05 A&P Assessment and plan 1. NSTEMI (non-ST elevated myocardial infarction): Post PCI on 10/15 to ostial diagonal branch with 1 DAY for severe in-stent restenosis. Denies any active chest pain. Check A1c, lipid panel. Continue with DAPT, Coreg. Add atorvastatin 40 mg daily. Appreciate echocardiogram. 2. Acute hypoxemic respiratory failure: In setting of congestive heart failure from non-ST elevation [place] in setting of systolic heart failure, multifocal community-acquired pneumonia with history of recent PE. Oxygen supplementation keeping saturation over 90%. Continue to monitor. 3. Pneumonia: Sputum culture when available. Blood cultures so far negative. Check respiratory viral panel. MRSA swab positive in the past. For now continue with IV vancomycin and Zosyn given patient being of end-stage renal disease on hemodialysis as per creatinine clearance. Check vancomycin random level. 4. Pulmonary edema: 5. Left ventricular systolic dysfunction (LVSD), NYHA class 3: Echocardiogram shows EF of 35% with severely decreased LV systolic function, moderate LV size, global LV hypokinesia with lateral wall severe hypokinesis 6. Ischemic congestive cardiomyopathy: 7. Multiple subsegmental pulmonary emboli without acute cor pulmonale: Takes Coumadin at home. Currently on DAPT. Will consult and discussed with cardiology for possibility of switching to Plavix and Eliquis and stopping aspirin. 8. End stage kidney disease: On hemodialysis Tuesday, , Tuesday. Appreciate nephrology recommendations. Continue with dialysis as per nephrology recommendations. 9. Chronic hypertension: Goal blood pressure less than 140/90 mmHg. Blood pressure is elevated. For now change home dose of Coreg 50 mg 3 times daily to 50 mg twice daily, clonidine 0.3 mg 3 times daily from 0.2 mg twice daily, continue with hydralazine 100 mg 3 times daily, nifedipine to be increased to 90 mg daily, change lisinopril to 100 mg daily losartan. If needed we will add Imdur. 10. Diabetic peripheral neuropathy associated with type 2 diabetes mellitus: Appreciate A1c. Continue monitor blood sugars daily. Plan: Renal dialysis diet Eliquis will be sufficient for DVT prophylaxis. For now start on heparin 5000 every 12 hourly. Protonix for PUD prophylaxis PDMP PDMP Reviewed: Not Reviewed Attestations 2 Medical Necessity Statement*: Requires further hospitalization for management of acute hypoxic respiratory failure in setting of community-acquired pneumonia, CHF, recent PE, in a patient with a non-ST ovation [place] post PCI, uncontrolled hypertension while antihypertensives were adjusted Diagnoses NSTEMI (non-ST elevated myocardial infarction) I21.4 Acute hypoxemic respiratory failure J96.01 Pneumonia J18.9 Pulmonary edema J81.1 Left ventricular systolic dysfunction (LVSD), NYHA class 3 I51.89 Ischemic congestive cardiomyopathy I25.5; I42.0 Multiple subsegmental pulmonary emboli without acute cor pulmonale I26.94 Pulmonary embolism type: multiple subsegmental (without acute cor pulmonale) End stage kidney disease N18.6 Chronic hypertension I10 Diabetic peripheral neuropathy associated with type 2 diabetes mellitus E11.42
[2024-10-17 14:28] LABS: Coronavirus 229E,HKU1,NL63,OC4 Not Detected (NOT DETECT); Parainfluenza Virus Type 1 Not Detected (NOT DETECT); Parainfluenza Virus Type 2 Not Detected (NOT DETECT); Parainfluenza Virus Type 3 Not Detected (NOT DETECT); Parainfluenza Virus Type 4 Not Detected (NOT DETECT); SARS-COV-2 Not Detected (NOT DETECT)
--- NOTE | 2024-10-17 17:06 | PC.NURSE ---
Addendum entered by Diana Bird LPN 10/17/24 17:30: This nurse assumed care of pt at this time. 1730 Original Note: This nurse took report from HEENA Starkey in ICU at 1705.
--- NOTE | 2024-10-17 17:09 | PC.NURSE ---
Report called to HEENA Bland. All questions answered. 1800 meds to be admin on [employer]
--- NOTE | 2024-10-17 17:33 | PC.NURSE ---
Pt transferred via W/C to room 254-1. All belongings with pt. updates given to HEENA Bland
[2024-10-18] VITALS (9 sets, daily range): BP systolic 143–177; BP diastolic 94–104; PULSE 69–88; RESP 15–18; TEMP 36.6–37.1; O2SAT 93–97
[2024-10-18] MEDS: piperacillin-tazobactam 3.375 GM in sodium chloride 0.9% (plus) 50 ML IV ×2 (02:56→15:42)
[2024-10-18 05:02] LABS: Hematocrit 39.0 % (37-53); Hemoglobin 12.10 g/dL (11.27-16.99); Mean Corpuscular HGB Conc 31.0 g/dL (30-55); Mean Corpuscular Hemoglobin 28.3 pg (27-33); Mean Corpuscular Volume 91.1 fl (82-101); Nucleated Red Blood Cells % 0 %; Platelet Count 181 10^3/cmm (157-399); Red Blood Count 4.28 10^6/uL (3.85-5.65); White Blood Count 7.91 10^3/uL (3.29-11.43)
[2024-10-18 05:25] LABS: Cholesterol 138 mg/dL (0-200); HDL Cholesterol 40 mg/dL (60-100); Magnesium 2.6 mg/dL (1.7-2.3); Triglycerides 102 mg/dL (0-150); VLDL Cholestrol Calculation 20 mg/dL (0-30)
[2024-10-18 05:26] LABS: Alanine Aminotransferase < 5 U/L (0-41); Albumin Level 3.5 g/dL (3.5-5.2); Alkaline Phosphatase 48 U/L (40-130); Anion Gap 22.5 (5-19); Aspartate Amino Transferase 7 U/L (0-40); Blood Urea Nitrogen 37 mg/dL (6-20); Calcium 9.3 mg/dL (8.5-10.5); Carbon Dioxide 21 mmol/L (22-29); Chloride 98 mmol/L (98-107); Creatinine Clr Calc Pharmacy 13.2864; Globulin 4.0 g/dL (1.3-4.6); Glucose 120 mg/dL (65-115); Osmolality Calculated 294 mOsm/kg (285-295); Potassium 4.5 mmol/L (3.5-5.1); Sodium 137 mmol/L (136-145); Total Protein 7.5 g/dL (6.6-8.7)
[2024-10-18] MEDS: venlafaxine ER (24HR) 150 mg Capsule PO (08:20)
[2024-10-18] MEDS: NIFEdipine ER (24 hr) 30 mg Tablet 90 MG PO (08:21)
--- NOTE | 2024-10-18 09:03 | P.DS_ITS ---
Discharge Providers Date of Admission: 10/13/24 15:37 Date of Discharge: October 18, 2024 Attending Provider at Admission: Apurva Viveros MD Attending Provider at Discharge: Bud Tapia MD Consults: Cardiology: Dr. Green Primary Care Provider: Yaniv Moe MD Diagnoses at Discharge Discharge Diagnosis 1. NSTEMI (non-ST elevated myocardial infarction): 2. Acute hypoxemic respiratory failure: 3. Pneumonia: 4. Pulmonary edema: 5. Left ventricular systolic dysfunction (LVSD), NYHA class 3: 6. Ischemic congestive cardiomyopathy: 7. Multiple subsegmental pulmonary emboli without acute cor pulmonale: 8. End stage kidney disease: 9. Chronic hypertension: 10. Diabetic peripheral neuropathy associated with type 2 diabetes mellitus: Reason for Visit Reason for Visit: sob Brief History: As per HPI: Jose Guadalupe Claudio is a 44 year old male With past medical history of end-stage renal disease on hemodialysis Tuesday schedule, COVID-19 in 2019 complicated by cardiac arrest, coma, stroke, need for tracheostomy, history of CABG for triple-vessel disease with recent coronary angiogram with PCI with angioplasty and drug-eluting stent, recently unprovoked PE presented to the hospital today for complaint of shortness of breath. He went to dialysis today however was unable to get dialysis session as he was needing supplemental oxygen and feeling weak. He was sent to the hospital from there for further workup and management. Patient's is at the bedside who supplements with history. She tells me that their insurance will not cover Eliquis and therefore patient was switched over to warfarin this Tuesday. Bridging therapy was not ordered. Patient has not missed any doses of his aspirin and Plavix. He has been taking aspirin 325 daily with Plavix along with warfarin since Tuesday. Note warfarin was added Tuesday morning.. Eliquis was stopped. Last dose of Eliquis was on Tuesday. He denies chest pain at this time. Appears lethargic and weak. On 100% nonrebreather at this time. INR 1.22. BNP greater than 70,000, baseline troponin 451, 2-hour troponin pending at this time. Urine drug screen positive for marijuana. Patient denies nausea vomiting diarrhea at this time. Chest x-ray done in the ER shows possible multilobar pneumonia. CT ruled out pulmonary embolism. Hospital Course Hospital Course Patient was admitted to the hospital further evaluation and management of acute on chronic congestive heart failure, hypoxic respiratory failure in setting of CHF and bilateral pneumonia along with concerns for non-ST elevation AL. He was started on broad-spectrum IV antibiotics, IV diuresis and was started on emergent dialysis. Cardiology was consulted and he underwent cardiac angiogram on 10/15. He underwent PCI to ostial diagonal branch with DAY for severe in- stent restenosis. During hospitalization he was found to have elevated blood pressures for which his antihypertensives were adjusted. He has been discharged in medically stable condition on Plavix and Eliquis for PCI and chronic A-fib along with history of DVT. He is to check his blood pressure daily at home and his blood pressure diary and follow-up with his primary care provider within next 2 weeks for further adjustment of antihypertensive along with following up with cardiology as an outpatient. He is also to take oral linezolid and Levaquin on discharge for next 5 days. Physical Exam Const: COMMON NORMALS: patient oriented x3 and alert GENERAL APPEARANCE: cooperative ORIENTATION/CONSCIOUSNESS: Yes awake HENMT: COMMON NORMALS: oropharynx normal Neck/C-Spine: COMMON NORMALS: no JVD Resp: COMMON NORMALS: normal respiratory effort and clear to auscultation bilaterally AUSCULTATION: clear to auscultation bilaterally Cardio: COMMON NORMALS: no JVD, regular rhythm, S1 normal heart sound present, S2 normal heart sound present and No murmurs present (Cardio) RHYTHM: regular rhythm HEART SOUNDS: S1 normal heart sound present and S2 normal heart sound present GI: COMMON NORMALS: Normal to inspection, nondistended, normoactive bowel sounds present, Soft to palpation and non-tender PALPATION: Yes Soft to palpation Extremity: COMMON NORMALS: no joint enlargement and no pedal edema NARRATIVE EXTREMITY EXAM: Right groin access site dressing, no pulsatile mass, no surrounding bruising, no bleeding. Neuro: COMMON NORMALS: patient oriented x3 and moves all extremities SENSORIUM/ORIENTATION: Yes alert Skin: COMMON NORMALS: no rashes or lesions noted GENERAL SKIN EXAM: no rashes or lesions noted Urinary Catheter Management: [place]: Cath Placed During This Visit: yes Reason for Continuing Indwelling Catheter: Accurate Measurement of Urinary Output in Critically Ill Patients Urinary Catheter Date of Insertion: 10/13/24 Discharge Data Studies Completed and Pending Completed Studies During Hospitalization Category Date Time Status CT angio chest PE protcl 38180 Stat Cat Scan 10/13/24 12:09 Completed XR chest 1V 50785 Stat Exams 10/13/24 12:09 Completed CV. echo limited 38739 Stat Ultrasound 10/14/24 15:34 Completed Pending at discharge Category Date Time Status SKIP MINER request for service Routine Exams 10/15/24 06:03 Taken Blood Culture Stat Lab 10/13/24 14:46 Results MAG [Magnesium] AM LABS Lab 10/19/24 04:00 Ordered MAG [Magnesium] AM LABS Lab 10/20/24 04:00 Ordered Sputum Culture and Gram Stain Stat Lab 10/13/24 15:34 Uncollected Radiology Impressions Chest CTA 10/13/24 12:09 IMPRESSION: 1. No pulmonary embolism. 2. Multifocal consolidation, suggestive of pneumonia. Chest X-Ray 10/13/24 12:09 IMPRESSION: Multifocal patchy consolidations, suggestive of pneumonia. Microbiology 10/13/24 14:46 Blood Blood Culture - Preliminary NEGATIVE TO DATE 10/13/24 14:44 Blood Blood Culture - Preliminary NEGATIVE TO DATE 10/13/24 17:12 Urine,Clean Catch Bacterial Antigens - Final 10/13/24 17:12 Urine Catheterized Legionella Urinary Antigen - Final Laboratory Results WBC 7.91 10^3/uL (3.29-11.43) 10/18/24 04:31 RBC 4.28 10^6/uL (3.85-5.65) 10/18/24 04:31 Hgb 12.10 g/dL (11.27-16.99) 10/18/24 04:31 Hct 39.0 % (37-53) 10/18/24 04:31 MCV 91.1 fl (82-101) 10/18/24 04:31 MCH 28.3 pg (27-33) 10/18/24 04:31 MCHC 31.0 g/dL (30-55) 10/18/24 04:31 RDW 16.5 % (12.1-15.1) H 10/18/24 04:31 Plt Count 181 10^3/cmm (157-399) 10/18/24 04:31 MPV 9.8 fL (7.4-10.4) 10/18/24 04:31 Neut % (Auto) 68.6 % 10/18/24 04:31 Lymph % (Auto) 12.5 % 10/18/24 04:31 [place] % (Auto) 10.4 % 10/18/24 04:31 Eos % (Auto) 6.7 % 10/18/24 04:31 Baso % (Auto) 1.5 % 10/18/24 04:31 Neut # (Auto) 5.43 10^3/uL (1.8-7.7) 10/18/24 04:31 Lymph # (Auto) 1.0 10^3/uL (0.8-4.8) 10/18/24 04:31 [place] # (Auto) 0.8 10^3/uL (0.2-0.9) 10/18/24 04:31 Eos # (Auto) 0.5 10^3/uL (0.0-0.8) 10/18/24 04:31 Baso # (Auto) 0.1 10^3/uL (0.0-0.1) 10/18/24 04:31 Nucleated RBC % (auto) 0 % 10/18/24 04:31 Nucleated RBCs # 0.0 /100WBC 10/18/24 04:31 PT 16.30 SECONDS (12.1-14.9) H 10/13/24 12:51 INR 1.22 (0.8-1.2) H 10/13/24 12:51 APTT 65.6 SECONDS (23.9-36.7) H D 10/14/24 15:58 Specimen Type Arterial 10/16/24 05:40 Sample Site Brachial, right 10/16/24 05:40 ABG pH 7.48 (7.35-7.45) H 10/16/24 05:40 ABG pCO2 31.4 mmHg (35-45) L 10/16/24 05:40 ABG pO2 75.6 mmHg (80.0-100.0) L 10/16/24 05:40 ABG PO2/FiO2 Ratio 178 10/15/24 03:20 ABG HCO3 23.1 mmol/L (22-26) 10/16/24 05:40 ABG Base Excess 0.2 mmol/L (-2.0-2.0) 10/16/24 05:40 Otoniel Test N/a 10/16/24 05:40 Hematocrit 37.4 % (42-52) L 10/16/24 05:40 O2 Delivery Device Nc 10/16/24 05:40 O2 Liters/Min 6.0 % 10/16/24 05:40 FiO2 40.0 % 10/15/24 03:20 Evaluator Transfer Students ID Baldo 10/16/24 05:40 Sodium 137 mmol/L (136-145) 10/18/24 04:31 Potassium 4.5 mmol/L (3.5-5.1) 10/18/24 04:31 Chloride 98 mmol/L (98-107) 10/18/24 04:31 Carbon Dioxide 21 mmol/L (22-29) L 10/18/24 04:31 Anion Gap 22.5 (5-19) H 10/18/24 04:31 BUN 37 mg/dL (6-20) H 10/18/24 04:31 Creatinine 6.5 mg/dL (0.7-1.2) H* 10/18/24 04:31 GFR Calculation 9.3 mL/min (90-130) L 10/18/24 04:31 Glucose 120 mg/dL (65-115) H 10/18/24 04:31 POC Glucose 172 mg/dL (70-110) H 10/15/24 20:43 Estimat Average Glucose 105 10/17/24 03:05 Hemoglobin A1c 5.3 % (4.0-6.0) 10/17/24 03:05 Calculated Osmolality 294 mOsm/kg (285-295) 10/18/24 04:31 Calcium 9.3 mg/dL (8.5-10.5) 10/18/24 04:31 Magnesium 2.6 mg/dL (1.7-2.3) H 10/18/24 04:31 Total Bilirubin 0.4 mg/dL (0.15-1.2) 10/18/24 04:31 AST 7 U/L (0-40) 10/18/24 04:31 ALT < 5 U/L (0-41) 10/18/24 04:31 Alkaline Phosphatase 48 U/L (40-130) 10/18/24 04:31 Troponin T Baseline 451 ng/L (0-15) H* 10/13/24 12:51 Troponin T 120 Minute 605.4 ng/L (0-15) H 10/13/24 14:44 Delta Troponin T 154.4 ABS# (0-10) H* 10/13/24 14:44 Troponin T Hi Sens 6Hr 930.8 ng/L (0-15) H 10/13/24 18:32 Troponin T Hi Sens 6Hr Delta 479.8 ng/L (0-12) H* 10/13/24 18:32 NT-Pro-B Natriuret Pep > 43891 pg/mL (0-125) H 10/13/24 12:51 Total Protein 7.5 g/dL (6.6-8.7) 10/18/24 04:31 Albumin 3.5 g/dL (3.5-5.2) 10/18/24 04:31 Globulin 4.0 g/dL (1.3-4.6) 10/18/24 04:31 Triglycerides 102 mg/dL (0-150) 10/18/24 04:31 Cholesterol 138 mg/dL (0-200) 10/18/24 04:31 LDL Cholesterol, Calc 78 mg/dL (50-129) 10/18/24 04:31 Total VLDL Cholesterol 20 mg/dL (0-30) 10/18/24 04:31 HDL Cholesterol 40 mg/dL (60-100) L 10/18/24 04:31 Cholesterol/HDL Ratio 3.45 mg/dL (1.0-5.00) 10/18/24 04:31 Procalcitonin 1.15 ng/mL (0-0.5) H 10/13/24 14:44 TSH 10.43 uIU/mL (0.27-4.20) H 10/17/24 03:05 Random Vancomycin 22.9 ug/mL (20.0-40.0) 10/17/24 03:05 Urine Opiates Screen Negative ng/mL (Negative) 10/13/24 17:12 Ur Barbiturates Screen Negative ng/mL (Negative) 10/13/24 17:12 Ur Phencyclidine Scrn Negative ng/mL (Negative) 10/13/24 17:12 Ur Amphetamines Screen Negative ng/mL (Negative) 10/13/24 17:12 U Benzodiazepines Scrn Negative ng/mL (Negative) 10/13/24 17:12 Urine Cocaine Screen Negative ng/mL (Negative) 10/13/24 17:12 U Marijuana (THC) Screen Positive ng/mL (Negative) H 10/13/24 17:12 Adenovirus (PCR) Not detected (NOT DETECT) 10/17/24 12:08 C. pneumoniae DNA (PCR) Not detected (NOT DETECT) 10/17/24 12:08 Coronavirus 229E (PCR) Not detected (NOT DETECT) 10/17/24 12:08 Hep Bs Antigen Non-reactive (Nonreactive) 10/13/24 12:51 Hep Bs Antibody 111.5 (11.5-1000) 10/13/24 12:51 Human Metapneumovir PCR Not detected (NOT DETECT) 10/17/24 12:08 Influenza A (H1) PCR Not detected (NOT DETECT) 10/17/24 12:08 Influ A (H1/09) PCR Not detected (NOT DETECT) 10/17/24 12:08 Influenza A (H3) PCR Not detected (NOT DETECT) 10/17/24 12:08 Influenza Type A (PCR) Not detected (NOT DETECT) 10/17/24 12:08 Influenza Type B (PCR) Not detected (NOT DETECT) 10/17/24 12:08 M. pneumoniae (PCR) Not detected (NOT DETECT) 10/17/24 12:08 Parainfluenza 1 (PCR) Not detected (NOT DETECT) 10/17/24 12:08 Parainfluenza 2 (PCR) Not detected (NOT DETECT) 10/17/24 12:08 Parainfluenza 3 (PCR) Not detected (NOT DETECT) 10/17/24 12:08 Parainfluenza 4 (PCR) Not detected (NOT DETECT) 10/17/24 12:08 RSV Type A (PCR) Not detected (NOT DETECT) 10/17/24 12:08 RSV Type B (PCR) Not detected (NOT DETECT) 10/17/24 12:08 Entero/Rhino (PCR) Not detected (NOT DETECT) 10/17/24 12:08 SARS-CoV-2 (PCR) Not detected (NOT DETECT) 10/17/24 12:08 Procedures Performed Cardiac angiogram: Date of procedure: 10/15/24 Pre-procedure diagnosis: [id number] M Post- procedure diagnosis: same Procedure: Left heart cath was performed Left main is normal LAD is chronically occluded Left circumflex has significant occlusion in the proximal segment RCA has moderate disease in the mid 60% stenosis LEON to LAD is patent Saphenous venous graft to diagonal branch is known to be chronically occluded, it is a skip graft to obtuse marginal 2 Saphenous venous graft to circumflex is chronically occluded RCA was never grafted High-grade in-stent restenosis to ostial diagonal stent it is the blood vessel which has skip graft to obtuse marginal, previously it was stented because saphenous venous graft to diagonal was closed while skip limb was open and patent. PCI to ostial diagonal branch with drug-eluting stent for severe in-stent restenosis. Drug-eluting stent was used which was postdilated with noncompliant balloon. Excellent angiographic result with JAZMYNE-3 flow was noted. Vitals Last Vital Signs Temp 98.2 F 10/18/24 07:36 Pulse 69 10/18/24 08:54 Resp 16 10/18/24 08:54 BP 167/97 10/18/24 07:36 Pulse Ox 94 10/18/24 08:54 O2 Del Method Room Air 10/18/24 08:54 O2 Flow Rate 5 10/17/24 23:03 FiO2 6 10/16/24 06:00 Discharge Plan Discharge Patient Disposition: Home Health Service Condition: Stable Prescriptions: New nifedipine 30 mg Tablet Extended Release 24hr 90 mg PO DAILY 30 Days Qty: 90 0RF Eliquis 5 mg Tablet 5 mg PO BID@0900,2100 Qty: 60 0RF losartan 50 mg Tablet 100 mg PO DAILY 30 Days Qty: 60 0RF levofloxacin 750 mg tablet 750 mg PO Q24H 5 Days Qty: 5 0RF linezolid 600 mg tablet 600 mg PO BID 5 Days Qty: 10 0RF Continued buspirone 5 mg tablet 5 mg PO TID bumetanide 2 mg tablet 2 mg PO DAILY PRN (Reason: dialysis days only) Rx Instructions: TAKE 1 TABLET BY MOUTH ONCE DAILY ON NON-DIALYSIS DAY loperamide 2 mg capsule See Rx Instructions .ROUTE .COMPLEX Rx Instructions: TAKE 1 CAPSULE BY MOUTH IN THE MORNING AND 3 IN THE EVENING clonidine HCl 0.3 mg tablet 0.3 mg PO TID venlafaxine 150 mg capsule,extended release 24hr 150 mg PO DAILY hydralazine 100 mg tablet 100 mg PO TID pantoprazole 40 mg tablet,delayed release (DR/EC) 40 mg PO DAILY ropinirole 0.5 mg tablet 0.5 mg PO QPM megestrol 40 mg tablet 40 mg PO BID mirtazapine 15 mg tablet 7.5 mg PO QPM sevelamer carbonate 800 mg tablet See Rx Instructions .ROUTE .COMPLEX Rx Instructions: TAKE 2 TABLETS BY MOUTH WITH THE LARGEST MEAL OF THE DAY AND 1 TABLET WITH OTHER MEALS (4 TABLETS TOTAL PER DAY) sodium bicarbonate 325 mg tablet 325 mg PO DAILY PRN (Reason: Stomach ACID) clopidogrel 75 mg Tablet 75 mg PO DAILY 30 Days Qty: 30 2RF RenaPlex-D 800 mcg-12.5 mg -2,000 unit tablet See Rx Instructions .ROUTE .COMPLEX Rx Instructions: TAKE 1 TABLET BY MOUTH EVERY DAY (ON DIALYSIS DAYS, TAKE AFTER DIALYSIS TREATMENT) Changed carvedilol 25 mg tablet 50 mg PO BID 30 Days Qty: 120 0RF Discontinued lisinopril 20 mg tablet 20 mg PO DAILY nifedipine 30 mg tablet extended release 30 mg PO DAILY amlodipine 5 mg tablet 5 mg PO QPM insulin lispro 100 unit/mL insulin pen 15 unit SUBCUT TID Rx Instructions: subcutaneously warfarin 5 mg tablet 5 mg PO DAILY Other Ambulatory Orders: Physical Therapy Eval and Treat Outpatient (Order) Timeframe: 3 Days Facility: [facility] - Location: Physical Therapy Ordered By: Bud Tapia Referrals: [facility] Outpatient Therapy [Outside] Yvonne Naranjo NP [Nurse Practitioner, Cardiology] - 10/29/24 2:30 pm Referral Note: Yaniv Moe MD [Primary Care Provider, Family Practice] - 11/01/24 10:00 am Discharge Diet: Usual diet, Cardiac and Diabetic Discharge Activity: Resume usual activity and Wheelchair as instructed Patient Instructions: Opioid Safety, Patient Portal & Galindo Instructions Activity Restrictions/Additional Instructions: Goal blood pressures less than 140/90 mmHg. Please check your blood pressure daily at home and maintain a blood pressure diary. Follow-up with a primary care provider within next 2 weeks for further adjustment of antihypertensive. Multiple antihypertensive doses has been changed. Lisinopril has been discontinued. Instead take losartan 100 mg oral daily. Dose of nifedipine has been increased to 90 mg daily. Continue taking your dose of clonidine as before. Coreg has been changed to 50 mg twice daily. Continue taking Plavix as before. Do not take baby aspirin. Take Eliquis which is also a blood thinner given your history of A-fib and blood clot in your legs. Do not take warfarin. Linezolid and Levaquin are the antibiotic which is supposed to take for next 5 days. Take Levaquin 1 time a day and linezolid 2 times a day. Discharge Attestations Time Spent in Discharge Care*: greater than 30 min Specific Discharge Activities: educating patient, educating and/or supporting family/caregiver, discussing with pcp/other providers, discussing with registered nurse hh case manager/social workers/dc planners, documenting/other paperwork and evaluating patient/reviewing data Status at Discharge: Cognitive status at discharge: cognitively intact , Behavioral status at discharge: cooperative , Functional status at discharge: wheelchair bound , Overall status at discharge: patient is back to baseline Quality Metrics Clinical Quality Measures [ Acute Myocardial Infaction { Clinical Trial Participant: No; Contraindication to aspirin: None; Aspirin prescribed; Contraindication to statin: None; Statin prescribed; Contraindication to PCI: None; PCI performed;}] Coding Level of Care Code 99696 Total time (in minutes) for Discharge: 65 Diagnoses NSTEMI (non-ST elevated myocardial infarction) I21.4 Acute hypoxemic respiratory failure J96.01 Pneumonia J18.9 Pulmonary edema J81.1 Left ventricular systolic dysfunction (LVSD), NYHA class 3 I51.89 Ischemic congestive cardiomyopathy I25.5; I42.0 Multiple subsegmental pulmonary emboli without acute cor pulmonale I26.94 Pulmonary embolism type: multiple subsegmental (without acute cor pulmonale) End stage kidney disease N18.6 Chronic hypertension I10 Diabetic peripheral neuropathy associated with type 2 diabetes mellitus E11.42
[2024-10-18] MEDS: heparin, porcine 1,000 unit/mL INJ 10 mL 1000 UNIT IV (17:16)
[2024-10-18] MEDS: heparin, porcine 1,000 unit/mL INJ 10 mL 10000 UNIT INTRACATH (17:16)
== END 2024-10-18 21:58 | disposition home or self-care (01) | DRG 321 ==
LOC: ER 16:05 → ICU 16:14 → MEDSURG 10-17 17:25
PROVIDERS: Hospitalist; Internal Medicine; Internal Medicine Cardiovascular Disease; Student in an Organized Health Care Education/Training Program; Admitting Provider Internal Medicine; Emergency Provider Emergency Medicine; PCP Family Medicine; Visit Provider Student in an Organized Health Care Education/Training Program
PROC: 027034Z Dilation of Coronary Artery, One Artery with Drug-eluting Intraluminal Device, Percutaneous Approach (ICD-10-PCS; principal; 2024-10-15 07:00)
PROC: 027034Z Dilation of Coronary Artery, One Artery with Drug-eluting Intraluminal Device, Percutaneous Approach (ICD-10-PCS; 2024-10-15 07:00)
DX: T82.855A Stenosis of coronary artery stent, initial encounter (principal); I50.23 Acute on chronic systolic (congestive) heart failure; J18.9 Pneumonia, unspecified organism; N18.6 End stage renal disease; J96.01 Acute respiratory failure with hypoxia; I13.2 Hypertensive heart and chronic kidney disease with heart failure and with stage 5 chronic kidney disease, or end stage renal disease; I48.20 Chronic atrial fibrillation, unspecified; Y71.8 Miscellaneous cardiovascular devices associated with adverse incidents, not elsewhere classified; E11.22 Type 2 diabetes mellitus with diabetic chronic kidney disease; I25.5 Ischemic cardiomyopathy; E11.42 Type 2 diabetes mellitus with diabetic polyneuropathy; I16.0 Hypertensive urgency; E87.5 Hyperkalemia; D63.1 Anemia in chronic kidney disease; G25.81 Restless legs syndrome; I25.10 Atherosclerotic heart disease of native coronary artery without angina pectoris; Z79.02 Long term (current) use of antithrombotics/antiplatelets; Z86.73 Personal history of transient ischemic attack (TIA), and cerebral infarction without residual deficits; Z86.16 Personal history of COVID-19; Z86.711 Personal history of pulmonary embolism; Z95.1 Presence of aortocoronary bypass graft; Z95.5 Presence of coronary angioplasty implant and graft
CPT/HCPCS: 36415; 36416; 36600; 51702; 71045; 71275; 80048; 80053; 80061; 80202; 80306; 82803; 82962; 83036; 83735; 83880; 84145; 84443; 84484; 85025; 85347; 85610; 85730; 86403; 86706; 87040; 87340; 87449; 87486; 87581; 87633; 90935; 93005; 93010; 93308; 93455; 94660; 94664; 96365; 96366; 96367; 96372; 96375; 96376; 97162; 97530; 99152; 99153; 99291; C1725; C1760; C1769; C1874; C1887; C1894; C9600; G0269; J1644; J1650; J2250; J2543; J3010; J3370; J3372; J3490; J7030; J9999; Q0163; Q3014; Q9967

== ENCOUNTER 2024-11-12 17:42 | Inpatient (IN) | payer MEDICARE, SELFPAY ==
--- OUTSIDE RECORDS SUMMARY | 2022-06-22 04:00 | XMS_ITS | Continuity of Care Document ---
Author Organization [facility] Address [id number] [address] Phone Care Team Providers Care Testing Manager Name Role Phone Ne Burton Unavailable Unavaila ble Allergies, Adverse Reactions, Alerts Substance Reaction Status Criticality No Known Allergies Active No Inform ation Medications Medication Instructions Dosage Effective Dates (start - stop) Status Comments Venlafaxine HCl 75 MG Oral Tablet TAKE 1 TABLET BY MOUTH THREE TIMES DAILY WITH FOOD 75 MG - Active buspirone 5 mg tablet Take 1 tablet by oral route up to 3 times daily as needed - Active hydrALAZINE HCl 100 MG Oral Tablet TAKE 1 TABLET BY MOUTH THREE TIMES DAILY WITH FOOD - Active gabapentin 100 mg capsule take 1 capsule by oral route every bedtime 100 MG - Active Lantus U-100 Insulin 100 unit/mL subcutaneous solution inject 10 units by subcutaneous route at bedtime - Active Humalog U-100 Insulin 100 unit/mL subcutaneous cartridge inject 2-8 units by subcutaneous route with meals per sliding scale insulin. Max 40 max - Active aspirin 325 mg tablet,delayed release take 1 tablet by oral route every day 325 MG - Active ReliOn Prime Test Strips apply by to machine route 2 times every day Not Available - Active bumetanide 2 mg tablet take 1 tablet by oral route 2 times every day 2 MG - Active cardiology lisinopril 40 mg tablet take 1 tablet by oral route every day 40 MG - Active diltiazem ER 120 mg capsule,extended release 12 hr take 1 capsule by oral route every day 120 MG - Active cardiology clonidine HCl 0.3 mg tablet take 1/2 tablet by oral route 2 times every day - Active cardiology atorvastatin 20 mg tablet take 1 tablet by oral route every day 20 MG - Active carvedilol 25 mg tablet take 1 tablet by oral route 2 times every day with food 25 MG - Active clopidogrel 75 mg tablet take 1 tablet by oral route every day 75 MG - Active famotidine 20 mg tablet take 1 tablet by oral route 2 times every day 20 MG - Active GlucaGen HypoKit 1 mg Injection inject 1 milliliter by subcutaneous route once in thigh, upper arm, or buttocks - Active isosorbide dinitrate 20 mg tablet take 1 tablet by oral route 2 times every day 20 MG - Active Nitrostat 0.[address] 1 tablet by sublingual route at 1st sign of attack; may repeat every 5 minutes up to 3 tabs; if norelief seek medical help 0.4 MG - Active Procedures Procedure Date No Charge Finalize Template Workaround Behavioral Health Consult Resin-Based Composite One Surface, Posterior Resin-Based Composite One Surface, Posterior Resin-Based Composite Two Surfaces, Posterior No Charge Patient Left / No Show Bitewings Four Films Periodic Oral Eval Est Patient - Adult Medicaid Prophylaxis Adult Resin-Based Composite Two Surfaces, Posterior Resin-Based Composite One Surface, Posterior Resin-Based Composite Three Surfaces, Posterior Resin-Based Composite One Surface, Posterior Extraction, Erupted Tooth Or Exposed Sharon t (Elevati Extraction, Erupted Tooth Or Exposed Sharon t (Elevati EDR Approval Note Finalize Template Workaround OFFICE/OUTPATIENT VISIT EST DIS SITE TELE [facility] Resin-Based Composite Two Surfaces, Anterior Resin-Based Composite Four Or More Surfaces Or I Resin-Based Composite Four Or More Surfaces Or I Resin-Based Composite Four Or More Surfaces Or I EDR Approval Note OFFICE/OUTPATIENT VISIT EST COMPLETE CBC W/AUTO DIFF WBC COMPREHEN METABOLIC PANEL GLYCOSYLATED HEMOGLOBIN TEST HG A1C LEVEL LT 7.0% LIPID PANEL ROUTINE VENIPUNCTURE Extraction, Erupted Tooth Or Exposed Sharon t (Elevati Extraction, Erupted Tooth Or Exposed Sharon t (Elevati Extraction, Erupted Tooth Or Exposed Sharon t (Elevati Resin-Based Composite One Surface, Posterior Resin-Based Composite Two Surfaces, Posterior Oral Hygiene Instructions Caries High Risk Exempt From Sealant Measure EDR Approval Note OFFICE/OUTPATIENT VISIT, EST OFFICE/OUTPATIENT VISIT, EST Perio Probing Prophylaxis Adult EDR Approval Note Bitewings Four Films Intraoral Periapical First Film Intraoral Periapical Each Additional Film Intraoral Periapical Each Additional Film Intraoral Periapical Each Additional Film Panoramic Film Comprehensive Oral Evaluatio n New Or Established EDR Approval Note OFFICE/OUTPATIENT VISIT EST GLYCOSYLATED HEMOGLOBIN TEST COMPREHEN METABOLIC PANEL GLYCOSYLATED HEMOGLOBIN TEST COMPLETE CBC W/AUTO DIFF WBC LIPID PANEL ROUTINE VENIPUNCTURE MICROALBUMIN SEMIQUANT ASSAY OF URINE CREATININE OFFICE/OUTPATIENT VISIT, NEW NO CHARGE Advance Directives Directive Yes / No Effective Date File Name No Information Encounters Encounter Description Practice Location Reason(s) For Visit Diagnoses Date Provider Providers Copied on Encounter [facility], [id number]- [facility], [place], [place], [address], [place] tel:[phone] [facility] No Information 3 Aniceto Olivia. [address], [place], [id number], [place]. tel:[phone] [facility], [id number] [id number], [address], [place] tel:[phone] Family Medicine F1 No Information 2 Aniceto Olivia. [address], [place], [address], [place]. tel:[phone] [facility], [id number] [id number], [address], [place] tel:[phone] [facility] No Information 2 Holtmtrinidader Ne. [address], [place], [address], [place]. tel:[phone] Referring Provider: Ne Moreland, [address] [place], [address]. tel:[phone] [facility], [id number] 5862349SP- [place], [address], [place] tel:[phone] [facility] No Information 2 Aniceto Hiie. [address], [place], [address], [place]. tel:[phone] [facility], [id number] [id number]- [place], [address], [place] tel:[phone] [facility] Other specified counseling 2 Roger Dominguez. [address], [place], [address], [place]. tel:[phone] Referring Provider: Angelica Adamsonney, [address] [place], [address]. tel:[phone] [facility], [id number] 4371288FLIn[place], [place], [address], [place] tel:[phone] [facility] No Information 2 Elton Wellington. [address] [place], [address], [place]. tel:[phone] Referring Provider: Eliz Lentz, [address] [place], [address]. tel:[phone] [facility], [id number], [address], [place] tel:[phone] [facility] No Information 2 Aniceto Olivia. [address], [place], [address], [place]. tel:[phone] Referring Provider: Ne Moreland, [address] [place], [address]. tel:[phone] [facility], [id number], [address], [place] tel:[phone] [facility] No Information 2 Aniceto Olivia. [address], [place], [address], [place]. tel:[phone] Referring Provider: Ne Moreland, [address] [place], [address]. tel:[phone] [facility], [id number] [id number]- [place], [address], [place] tel:[phone] [facility] No Information 2 Robert Raman. [address] [place], [address], [place]. tel:[phone] Referring Provider: Danisha Lentz, [address] [place], [address]. tel:[phone] [facility], [id number] 7440306CU- [place], [address], [place] tel:[phone] [facility] No Information 2 Moralesnnenstie kenny Raman. [address] [place], [address], [place]. tel:[phone] Referring Provider: Danisha Lentz, [address] [place], [address]. tel:[phone] [facility], [id number]- [place], [address], [place] tel:[phone] [facility] depression (chief complaint)ev aluation to drive (chief complaint) Anxiety disorder, unspecifiedC erebrovascul ar accident (CVA) of basal gangliaHisto ry of non-ST elevation myocardial infarction (NSTEMI)Marble Cleaner nayan kidney disease, stage 5, kidney failureChron ic combined systolic (congestive) and diastolic (congestive) heart failure 2 Aniceto Olivia. [address], [place], [address], [place]. tel:[phone] Referring Provider: Ne Moreland, [address] [place], [address]. tel:[phone] [facility], [id number] [facility], [place], [place], [address], [place] tel:[phone] [facility] No Information 1 Robert Raman. [address] [place], [address], [place]. tel:[phone] Referring Provider: Danisha Lentz, [address] [place], [address]. tel:[phone] OFFICE/OUTPA TIENT VISIT [facility], [id number] [id number], [place], [address], [place] tel:[phone] [facility] Follow Up of HTN (chief complaint)hy pertension (chief complaint) Essential (primary) hypertension Hyperlipidem iaType 2 diabetes mellitus with diabetic neuropathy, unsp 1 Aniceto Olivia. [address], [place], [address], [place]. tel:[phone] Referring Provider: Ne Moreland, [address] [place], [address]. tel:[phone] [facility], [id number], [place], [address], [place] tel:[phone] [facility] Encounter for dental exam and cleaning w/o abnormal findings 1 Robert Raman. [address] [place], [address], [place]. tel:[phone] Referring Provider: Danisha Lentz, [address] [place], [address]. tel:[phone] OFFICE/OUTPA TIENT VISIT, [facility], [id number], [place], [address], [place] tel:[phone] [facility] hypertension (chief complaint)tr acheotomy (chief complaint) History of tracheostomy Essential (primary) hypertension Decreased stamina 1 Aniceto Olivia. [address], [place], [address], [place]. tel:[phone] Referring Provider: Ne Moreland, [address] [place] [address], [address]. tel:[phone] [facility], [id number] [id number], [place], [address], [place] tel:[phone] [facility] No Information 1 Aniceto Olivia. [address] [place] [address], [id number], [place]. tel:[phone] OFFICE/OUTPA TIENT VISIT, [facility], [id number], [place], [address], [place] tel:[phone] [facility] Establish care (chief complaint) Type 2 diabetes mellitus with diabetic neuropathy, unspEssentia l (primary) hypertension Hyperlipidem iaCKD (chronic kidney disease) requiring chronic dialysisDepe ndence on renal dialysisEnco unter to establish careAnxiety disorder, unspecifiedH istory of non-ST elevation myocardial infarction (NSTEMI)H/O coronary artery bypass surgeryBilat eral lower extremity edemaAtheros clerosis of [place] coronary artery of [place] heart with unstable angina pectorisChro nayan combined systolic (congestive) and diastolic (congestive) heart failureCereb rovascular accident (CVA) of basal gangliaChron ic kidney disease, stage 5, kidney failure 1 Aniceto Olivia. [address] [place] [address], [id number], [place]. tel:[phone] Referring Provider: Ne Moreland, [address] [place] [address], [address]. tel:[phone] [facility], [id number]- [place], [address], [place] tel:[phone] [facility] Encounter for dental exam and cleaning w/o abnormal findings 0 Facundo Luna. [address] [place], [address], [place]. tel:[phone] Referring Provider: Cheryl Loredo, [address] [place], [address]. tel:[phone] [facility], [id number]- [place], [place], [address], [place] tel:[phone] [facility] Encounter for dental exam and cleaning w/o abnormal findings 0 Robert Raman. [address] [place], [address], [place]. tel:[phone] Referring Provider: Danisha Lentz, [address] [place], [address]. tel:[phone] OFFICE/OUTPA TIENT VISIT EST [facility], [id number]- [place], [place], [address], [place] tel:[phone] Family Medicine F1 Follow Up of diabetes (chief complaint)Fo llow Up of hypertension (chief complaint) Type 2 diabetes with hyperglycemi aHypertensiv e urgencyAnxie ty disorder, unspecifiedH yperlipidemi aType 2 diabetes mellitus with diabetic neuropathy, unsp 8 No Information [facility], [id number]- [place], [place], [address], [place] tel:[phone] Family Medicine F1 Type 2 diabetes mellitus with diabetic neuropathy, unsp 8 No Information [facility], [id number] 6756088PZ- [place], [place], [address], [place] tel:[phone] Family Medicine F1 Type 2 diabetes mellitus with diabetic neuropathy, unsp No Information OFFICE/OUTPA TIENT VISIT, [facility], [id number]- [facility], [place], [place], [address], [place] tel:[phone] Family Medicine F1 Est Pt (chief complaint)di abetes (chief complaint)hy pertension (chief complaint) Type 2 diabetes mellitus with diabetic neuropathy, unspEssentia l (primary) hypertension Anxiety disorder, unspecified No Information [facility], [id number]- [place], [place], [address], tel:[phone] Family Medicine F1 No Information René Davis. [address], [place], [address], [place]. tel:[phone] Referring Provider: Ryan Merritt, [address], [address]. tel:[phone] Family History Family Member Type Diagnosis Age At Onset Problem (finding) Family history of Diabe leonides mellitus Problem (finding) Family history of hyper tension Problem (finding) Family history of Cardi ovascular disease Immunizations Vaccine Date Status Comments Pneumo (2 yrs or older) (PPV23) administe red Source: Other Provider Td (7 yrs or older) Multi dose administer ed Source: Other Provider Payers Payer name Insurance type Covered green party ID Nolberto augustine(s) Liane Medicare PPS MB [id number] M [place] Medicaid MC [id number] Social History Type Description Quantity Date Captured Comments Sex Male Smoking Status No Information Sexual Orientation Heterosexual Gender Identity Male Chief Complaint And Reason For Visit No Information Reason For Referral Reason For Referral No Information Plan Of Treatment Date Type Action Status Goal Tobacco cessation counseling completed Referral Ordered: Referrals: Outpatient OT for driving assessment. Location: [facility] Evaluate and treat. Diagnostic testing ordered Referral Ordered: Referrals: Otolaryngology. Location: [facility]. Evaluate and treat ordered History Of Present Illness Encounter Date Complaint History Of Prese nt Illness evaluation to drive pt was told he should no longer drive after having a stroke. He would like to see if he is able to start driving again. Pt has not seen neurology in over 1 year. He is unsure who told him he should no longer drive. He just remembers being told this while being in the hospital at the time of his stroke. depression The client prese nts with anxious/fearful thoughts, compulsive thoughts, depressed mood, difficulty concentrating, difficulty falling asleep, diminished interest or pleasure and excessive worry but denies difficulty staying asleep, hallucinations, racing thoughts or thoughts of or suicide. hypertension Risk factors inc lude male gender. Follow Up of HTN tracheotomy Pt had tracheoto my on June 2019 due to intubation needed for a few weeks at [facility] due to pneumonia. This was removed while at [facility] in [place]. 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 He is concerned he may have had damage to vocal cords from trach. Pt would like to see ENT for further evaluation. hypertension Risk factors inc lude male gender. Pertinent negatives include chest pain and irregular heartbeat/palpitations. Additional information: Pt saw cardiology last week. BP was good at cardiology. Last home reading was 156/84 before dialysis last night. Establish care Pt was seeing Dr Lazaro Conley at [facility] and would like to establish care at . Pt see cardiology at [facility] at [facility].Pt seeing Dr. Rojas at [facility] [facility] and has dialysis at home with equipment and testing at [facility]. Pt is on the transplant list at [facility] in .Pt has been recommended to see endocrinology for DM control but he has not done this yet. Last A1C was 6.2.Pt had stroke in 06/2019. Pt has been D/C'd from treatment.Pt also has HTN. Follow Up of hypertension Risk f actors include male gender. Follow Up of hyperte nsion (comments) Pt states he has been out of meds for 2 weeks and has been having mild headaches for the last few days. He denies a headcahe today. He also deneis any chest pain or shortness of breath or edema. Follow Up of diabetes He Has bee n managed with oral medications. Follow Up of diabetes (comments) Pt states he ran out of all his medications about 2 weeks ago. He states he took his Levemir once nightly but never checked his glucose and rwe. He states he has felt tired a lot and has been urinating 3-4 times per noght recently. He deneis any vison chnages or extremity nmbness Est Pt diabetes hypertension Risk factors inc lude male gender. hypertension (comments) Pt state s his BP has been wlevated recently because he ran out of 2 of his BP meds and has only been taking lisinopril and clonidine diabetes (comments) Pt states wh en he was first diagnosed with DM in 2008 , he was strated on metformin and told he had Type 2 DM. he states shorthyp after that he was started ion insulin and currently takes Levemir 25 U once daily. he does not know his last Hgba1C which he thinks was done about 4 months ago. Functional Status Date Functional Assessmen t No Information Instructions Date Instruction Additional Infor akanksha See #2 above. Related to Chron ic kidney disease, stage 5, kidney failure See #2 above. 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 Related to Histo ry of non-ST elevation myocardial infarction (NSTEMI) Pt would like referr al for driving evaluation sent to [facility]. Pt will be notified of results. POC will be discussed further at that time.Referral for neurology will be sent to [facility] for F/U of stroke.Call sooner with questions or concerns. Related to Cerebrovascular accident (CVA) of basal ganglia [facility] This visi t was conducted with the use of interactive audio and video telecommunications system which permits real-time, two -way communication between the patient and the provider. The patient has given consent for this visit. Patient is located at- home [facility] minutesPt to start buspirone 5mg BID.Continue other medications as prescribed.. Discussed sources of support and positive coping skills pt can utilize to better manage depression and anxiety.. Pt agrees to call 911 or go to the nearest emergency room with concern for harm to self or others.. F/U in 1 month.Call sooner with questions or concerns. Related to Anxiety disorder, unspecified Weight control education Related to Anxiety disorder, unspecified Hypertension education Related t o Anxiety disorder, unspecified Continue medications and insulin as prescribed.FreeStyle Maia ordered for pt to assist with BG monitoring.. Labs drawn today. Pt will be notified of results. POC will be discussed further at that time.. Education given on the importance of healthy low carb diet and exercise.. F/U in 3 months.Call sooner with questions or concerns. Related to Type 2 diabetes mellitus with diabetic neuropathy, [facility] HTN well controlled on current medications. Continue as prescribed.. Labs drawn today. Pt will be notified of results. POC will be discussed further at that time.. Lifestyle modification education completed: encouraged to decrease salt intake, increase activity, and monitor blood pressure periodically.Notify office for blood pressure readings greater than 140 systolic and/or 90 diastolic on more then 2 separate occasions.. Seek immediate care at the nearest emergency room for blood pressure reading greater than 160 systolic and/or greater than 95 diastolic with any chest pain/pressure, shortness of breath, arm, back, or neck/jaw pain, nausea, diaphoresis, headache, numbness/tingling that is new/unilateral, difficulty speaking/swallowing, facial droop, or change in mentation.. F/U in 3-6 months.Call sooner with questions or concerns. Related to Essential (primary) hypertension See #1 above. Related to Hyper lipidemia Weight control education Related to Essential (primary) hypertension Hypertension education Related t o Essential (primary) hypertension Referral sent to ENT at [facility] per pt request.Pt is concerned he may have vocal cord damage from tracheostomy in at [facility].Pt is having difficulty with stamina singing through 1 song and he is in a band.Will consider referral to pulmonology if ENT reports no concerns.Call sooner with questions or concerns. Related to History of tracheostomy See #2 above. Related to Decre ased stamina Pt had F/U with card iology last week. Records will be reviewed.Pt to take hydralazine and monitor home BP readings.Pt to call cardiology office to report elevated BP reading.. Lifestyle modification education completed: encouraged to decrease salt intake, increase activity, and monitor blood pressure periodically.Notify office for blood pressure readings greater than 140 systolic and/or 90 diastolic on more then 2 separate occasions.. Seek immediate care at the nearest emergency room for blood pressure reading greater than 160 systolic and/or greater than 95 diastolic with any chest pain/pressure, shortness of breath, arm, back, or neck/jaw pain, nausea, diaphoresis, headache, numbness/tingling that is new/unilateral, difficulty speaking/swallowing, facial droop, or change in mentation.. F/U in 1 month.Call sooner with questions or concerns. Related to Essential (primary) hypertension Weight control education Related to Essential (primary) hypertension Hypertension education Related t o Essential (primary) hypertension DEBORAH signed for previ ous providers and nephrology.Records will be reviewed including recent labs, medications and diagnoses.UPDATE 07-03-20:Records reviewed.Labs from 06-20-20:A1C 6.1WBC 15.7 HRBC 3.92 LHgb 11.1 LBUN 27 HCreatinine 4.86 HGFR 13 LCardiology note from 02-15-2020Pt to continue bumex, lisinopril, isisirbide, hyddralazineaspirin, Plavix, atorvastatin, coreg, Imdur, and sublingua, l Nitroglycerin PRN.F/U in 6 monthsDiagnoses, meds, procedures, and family hx updated from last PCP note on 06/20/20atus post CABG Z95.1 12/29/2017Basal ganglia CVA 07/2019 Related to Encounter to establish care Continue atorvastati n as prescribed.DEBORAH signed for previous PCP. Will review labs.. F/U in 6 months.Call sooner with questions or concerns. Related to Hyperlipidemia HTN well controlled on current medications. Continue as prescribed.Pt to continue F/U with cardiology at [facility].. Lifestyle modification education completed: encouraged to decrease salt intake, increase activity, and monitor blood pressure periodically.Notify office for blood pressure readings greater than 140 systolic and/or 90 diastolic on more then 2 separate occasions.. Seek immediate care at the nearest emergency room for blood pressure reading greater than 160 systolic and/or greater than 95 diastolic with any chest pain/pressure, shortness of breath, arm, back, or neck/jaw pain, nausea, diaphoresis, headache, numbness/tingling that is new/unilateral, difficulty speaking/swallowing, facial droop, or change in mentation.. F/U in 3 months.Call sooner with questions or concerns. Related to Essential (primary) hypertension Pt reports last A1C was 6.2.Continue insulin as prescribed.Pt declines endocrinology referral at this time due to BG being well controlled on current insulin dosing.. Education given on the importance of healthy low carb diet and exercise.. F/U in 3 months.Call sooner with questions or concerns. Related to Type 2 diabetes mellitus with diabetic neuropathy, unsp See #2 above. Related to Víctor smyth on renal dialysis Pt to continue F/U w kemal Rojas at [facility].Call sooner with questions or concerns. Related to CKD (chronic kidney disease) requiring chronic dialysis PHQ of 11 today.Pt t o continue venlafaxine 75mg TID.Referral sent to [facility] for counseling services before adding medication.Pt having increased anxiety due to chronic illness.. Discussed sources of support and positive coping skills pt can utilize to better manage depression and anxiety.. Pt agrees to call 911 or go to the nearest emergency room with concern for harm to self or others.. F/U as needed.Call sooner with questions or concerns. Related to Anxiety disorder, unspecified Mental health care education Rel ated to Essential (primary) hypertension Hypertension education Related t o Essential (primary) hypertension Weight control education Related to Essential (primary) hypertension Lifestyle education Related to D ental Examination Assessments Type Assessment Date No Information Patient Care Teams Name Effective Dates (start - stop) Status Members No Information
[2024-11-12] VITALS (7 sets, daily range): BP systolic 205–232; BP diastolic 113–131; PULSE 83–112; RESP 17–28; TEMP 36.8; O2SAT 95–100; BMI 19.4
--- OUTSIDE RECORDS SUMMARY | 2024-11-12 17:48 | XMS_ITS | Encounter Summary ---
Author Organization [facility] Address [address] [place] [address] Phone Care Team Providers Care Station Installer And Repairer Name Role Phone Savanah Garibay MD Primary Care Prov ider Reason for Visit * Reason Comments Med Refill Encounter Details Date Type Department Care Team (Late st Contact Info) Description 02/20/2023 Refill [facility] [address] [place] [address] Daisy Rojas MD [address] [place] [address] Social History Tobacco Use Types Packs/Day Years Used Date Smoking Tobacco: Former Cigarettes Q uit: 12/19/2017 Smokeless Tobacco: Never Alcohol Use Standard Drinks/Week Comments Never 0 (1 standard drink = 0.6 oz pur e alcohol) AUDIT-C Answer Date Recorded Frequency of Alcohol Consumption Never 01/11/2019 Average Number of Drinks Not on file 019 Frequency of Binge Drinking Not on file 06/2018 Sex and Gender Information Value Date Recorded Sex Assigned at Not on file Legal Sex Male 10:14 AM EDT Gender Identity Not on file Sexual Orientation Not on file documented as of this encounter Plan of Treatment Not on file documented as of this encounter Visit Diagnoses Not on filedocumented in this encounter Care Teams Station Installer And Repairer Relationship Specialty Start Date End Date Savanah Garibay MD [address] [place] [address] PCP - General Geriatric Medicine 10/19/18 documented as of this encounter
--- OUTSIDE RECORDS SUMMARY | 2024-11-12 17:48 | XMS_ITS | Clinical Summary ---
Author Organization [facility] Address [address] [facility] [address] [place] [address] Phone Care Team Providers Care Retort Unloader Name Role Phone Savanah Garibay MD Primary Care Prov ider Allergies No known active allergies Medications * This document contains information received from the source organization and may not represent a complete record from that organization. nitroglycerin (NITROSTAT) 0.4 MG SL tablet DISSOLVE ONE TABLET UNDER THE TONGUE EVERY 5 MINUTES NEEDED FOR CHEST PAIN. DO NOT EXCEED A TOTAL OF 3 DOSES IN 15 MINUTES 11 9 Active insulin NPH, Isophane, (HumuLIN,NovoLIN) 100 UNIT/ML injection Per sliding scale 9 Active hydrALAZINE (APRESOLINE) 25 MG tablet TAKE 1 TABLET BY MOUTH THREE TIMES DAILY 3 9 Active cloNIDine (CATAPRES) 0.2 MG tablet Take 0.2 mg by mouth twice a day 9 Active carvedilol (COREG) 25 MG tablet Take 25 mg by mouth 2 (two) times a day with meals 11 9 Active insulin aspart (NovoLOG) 100 UNIT/ML injection Inject 4 Units under the skin every night Active GABAPENTIN PO Take 300 mg by mouth every night Active sodium bicarbonate 650 MG tablet Take 1 tablet (650 mg total) by mouth 2 (two) times a day 60 tablet 3 0 Active bumetanide (BUMEX) 2 MG tablet Take 1 tablet (2 mg total) by mouth 2 (two) times a day 60 tablet 3 0 Active ergocalciferol 1.25 MG (43034 UT) capsule TAKE 1 CAPSULE BY MOUTH ONCE EVERY MONTH (EVERY 30 DAYS) 3 capsule 2 Active Additional Information Patient taking differently: 50,000 Units Oral Weekly, Reported on 01/30/2024 busPIRone (BUSPAR) 5 MG tablet Take 1 tablet by mouth in the morning and 1 tablet at noon and 1 tablet in the evening. 2 Active mirtazapine (REMERON) 15 MG tablet Take 7.5 mg by mouth every night 4 Active lisinopril 40 MG tablet Take 40 mg by mouth in the morning. 0 Active pantoprazole (PROTONIX) 40 MG EC tablet Take 40 mg by mouth 1 (one) time each day before breakfast 3 Active rOPINIRole (REQUIP) 0.5 MG tablet Take 0.5 mg by mouth at bed time Active sevelamer carbonate (RENVELA) 800 MG tablet Take 800 mg by mouth in the morning and 800 mg at noon and 800 mg in the evening. Take with meals. 2 tabs with high phosphorous meals. 1 Active Vancomycin HCl 1 g reconstituted solution Infuse 1 vial into a venous catheter 4 Active traMADol (ULTRAM) 50 MG tablet Take 50 mg by mouth Active oxyCODONE-acetami nophen (PERCOCET) 10-325 MG per tablet Take 1 tablet by mouth every 4 (four) hours if needed Active venlafaxine (EFFEXOR) 75 MG tablet Take 75 mg by mouth in the morning and 75 mg in the evening. 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 Resolved Problems Problem Noted Date Diagnosed Date Resolved Date Chronic kidney disease, stage 3 (moderate) 01/11/2019 12/28/2019 Hypertension 12/05/2014 01/11/2019 Encounters Date Type Department Care Team Description 11/08/[address] [facility], [facility] [address] [place] [address] Agnes Alvarado MD 11/06/[address] [facility], [facility] [address] [place] [address] Agnes Alvarado MD 11/01/[address] [facility], [facility] [address] [place] [address] Agnes Alvarado MD 10/30/[address] [facility], [facility] [address] [place] [address] Agnes Alvarado MD 10/30/[address] [place] [address], [facility] [address] [place] [address] Agnes Alvarado MD End stage renal disease; Dependence on renal dialysis 10/25/[address] [facility], [facility] [address] [place] [address] Agnes Alvarado MD 10/23/2024 Orders Only [facility], [facility] [address] [place] [address] Agnes Alvarado MD 10/23/2024 TCM in Dialysis Clinic [address] [place] [address], [facility] [address] [place] [address] Jaky Roberts NP 10/23/[address] [place] [address], [facility] [address] [place] [address] Jaky Roberts NP End stage renal disease; Dependence on renal dialysis 10/19/2024 Documentation Only [facility], [facility] [address] [place] [address] Alana Pantoja MA 10/19/2024 Telephone [facility], [facility] [address] [place] [address] Hawa Franco NP 10/11/2024 Orders Only [facility], [facility] [address] [place] [address] Agnes Alvarado MD 10/09/2024 Orders Only [facility], [facility] [address] [place] [address] Agnes Alvarado MD 10/09/2024 Treatment [facility], [facility] [address] [place] [phone] Hawa Franco NP End stage renal disease; Dependence on renal dialysis 10/04/2024 Orders Only [facility], [facility] [address] [place] [address] Agnes Alvarado MD 10/02/2024 Orders Only [facility], [facility] [address] [place] [address] Agnes Alvarado MD 10/02/2024 Treatment 8[facility], [facility] [address] [place] [address] Jaky Roberts NP End stage renal disease; Dependence on renal dialysis 09/27/2024 Orders Only [facility], [facility] [address] [place] [address] Agnes Alvarado MD 09/27/2024 [facility], [facility] [address] [place] [address] Agnes Alvarado MD End stage renal disease; Dependence on renal dialysis 09/25/2024 Orders Only [facility], [facility] [address] [place] [address] Agnes Alvarado MD 09/20/2024 Orders Only [facility], [facility] [address] [place] [address] Agnes Alvarado MD 09/18/2024 Orders Only [facility], [facility] [address] [place] [address] Agnes Alvarado MD 09/18/[address] [place] [address], [facility] [address] [place] [address] Jaky Roberts NP End stage renal disease; Dependence on renal dialysis 09/13/2024 Orders Only [facility], [facility] [address] [place] [address] Agnes Alvarado MD 09/12/2024 Telephone [facility], [facility] [address] [place] [address] Agnes Alvarado MD 09/11/2024 Orders Only [facility], [facility] [address] [place] [address] Agnes Alvarado MD 09/11/[address] [place] [address], [facility] [address] [place] [address] Jaky Roberts NP End stage renal disease; Dependence on renal dialysis 09/06/2024 Orders Only [facility], [facility] [address] [place] [address] Agnes Alvarado MD 09/06/[address] [place], [place] [address]rology [facility], [facility] [address] [place] [address] Agnes Alvarado MD End stage renal disease; Dependence on renal dialysis 09/04/2024 Orders Only [facility], [facility] [address] [place] [address] Agnes Alvarado MD 08/30/2024 Orders Only [facility], [facility] [address] [place] [address] Agnes Alvarado MD 08/28/2024 Treatment [facility], [facility] [address] [place] [address] Hawa Franco NP End stage renal disease; Dependence on renal dialysis 08/28/2024 Telephone [facility], [facility] [address] [place] [address] Daisy Rojas MD 08/23/2024 Orders Only [facility], [facility] [address] [place] [address] Agnes Alvarado MD 08/16/2024 Refill [facility], [facility] [address] [place] [address] Agnes Alvarado MD 08/14/2024 Orders Only [facility], [facility] [address] [place] [address] Agnes Alvarado MD 08/14/[address] [place] [address] [facility] [address] [place] [address] Hawa Franco NP End stage renal disease; Dependence on renal dialysis 08/12/2024 Refill [facility], [facility] [address] [place] [address] Agnes Alvarado MD from Last 3 Months Immunizations Immunization Administration Dates Next Due Influenza TIV (IM) 08/10/2019 Pneumococcal Polysaccharide 11/10/2015 Td 05/12/2015 Family History Medical History Relation Comments Diabetes Brother Kidney disease Brother Heart disease Father Hypertension Father Diabetes Mother Heart disease Mother Hypertension Mother Stroke Mother Relation Status Comments Brother Father Mother Social History Tobacco Use Types Packs/Day Years [...] Sign Reading Time Taken Comments Blood Pressure 142/90 12/28/2019 4:21 PM CDT Pulse 68 12/28/2019 4:21 PM CDT Temperature 36.8 C (98.3 F) 12/28/2019 4:21 PM CDT Respiratory Rate - - Oxygen Saturation - - Inhaled Oxygen Concentration - - Weight 110 kg (241 lb 12.8 oz) 12/28/2019 4:21 P M CDT Height 182.9 cm (6') 12/28/2019 4:21 PM CDT Body Mass Index 32.79 12/28/2019 4:21 PM CDT Plan of Treatment Health Maintenance Due Date Last Done Comments Hepatitis B Vaccine (1 of 5 - Risk Dialysis 4-dose series) 1999 06/05/2020, 02/25/2020, 01/21/2020 Diabetes: Ophthalmology Exam 10/19/2018 Diabetes: Pedal Pulse Checked 10/19/2018 Diabetes: Sensory Foot Exam 10/19/2018 Diabetes: Visual Foot Exam 10/19/2018 Influenza Vaccine (#1) 2024 4, 01/21/2023, 12/31/2021, Additional history exists Diabetes: Hemoglobin A1C 12/14/2024 025, 06/14/2024, 03/15/2024, Additional history exists Pneumococcal Vaccine: Peds ( 0 to 5 Years) and At-Risk Patients (6 to 49 Years) (4 of 4 - PCV20 or PCV21) 10/13/2029 07/12/2023, 02/01/2020, 11/10/2015 Pneumococcal Vaccine: 50+ Years Discontinued 07/12/2023, 02/01/2020, 11/10/2015 Procedures Procedure Name Priority Date/Time Associated Diagnosis Comments HEMATOLOGY Routine 11/08/2024 HEMATOLOGY Routine 11/06/2024 CHEMISTRY Routine 11/01/2024 HEMATOLOGY Routine 11/01/2024 HEMATOLOGY Routine 10/30/2024 HEMATOLOGY Routine 10/30/2024 HEMATOLOGY Routine 10/25/2024 HEMATOLOGY Routine 10/23/2024 HEMATOLOGY Routine 10/23/2024 [facility] RES[facility] Routine 10/11/2024 HD KINETICS Routine 10/11/2024 POST CHEMISTRY Routine 10/11/2024 CHEMISTRY Routine 10/11/2024 HEMATOLOGY Routine 10/11/2024 HEMATOLOGY Routine 10/09/2024 HEMATOLOGY Routine 10/09/2024 HEMATOLOGY Routine 10/04/2024 HEMATOLOGY Routine 10/02/2024 HEMATOLOGY Routine 09/27/2024 HEMATOLOGY Routine 09/25/2024 HEMATOLOGY Routine 09/20/2024 HEMATOLOGY Routine 09/18/2024 [facility] RES[facility] Routine 09/13/2024 HD KINETICS Routine 09/13/2024 POST CHEMISTRY Routine 09/13/2024 CHEMISTRY Routine 09/13/2024 SPECIAL CHEMISTRY Routine 09/13/2024 HEMATOLOGY Routine 09/13/2024 CHEMISTRY Routine 09/13/2024 HEMATOLOGY Routine 09/11/2024 HEMATOLOGY Routine 09/06/2024 HEMATOLOGY Routine 09/04/2024 HEMATOLOGY Routine 08/30/2024 HEMATOLOGY Routine 08/28/2024 [facility] RES[facility] Routine 08/23/2024 HD KINETICS Routine 08/23/2024 POST CHEMISTRY Routine 08/23/2024 CHEMISTRY Routine 08/23/2024 HEMATOLOGY Routine 08/23/2024 CHEMISTRY Routine 08/16/2024 HEMATOLOGY Routine 08/16/2024 HEMATOLOGY Routine 08/14/2024 from Last 3 Months Results * (ABNORMAL) HEMATOLOGY (11/08/2024) Only the most recent of26 resultswithin the time period is included. Hemoglobin 10.9(L) 14.0 - 18.0 g/dL [facility] Hemoglobin x 3 32.7(L) 42.0 - 54.0 % [facility] 11/08/2024 11/09/2024 9:1 6 AM CDT Narrative [facility] - 11/09/2024 Unless otherwise specified, test(s) performed at: [facility], [address] [place], [place] [id number] COMIC BOOK WRITER: Roman Sanchez M.D. For any questions, please call customer service at FREQUENCY:OTHER Resulting Agency Comment Specimen source: Blood us Agnes Alvarado MD LAB BLOOD ORDERABLES Final Re sult Performing Organization Address [facility] de Phone Number [facility] See order comments or contact performing lab Unknown, [place] * (ABNORMAL) [facility] (11/01/2024) Only the most recent of6 resultswithin the time period is included. Ferritin 886(H) 22 - 322 ng/mL [facility] 11/01/2024 11/02/2024 9:0 1 AM CDT Narrative [facility] - 11/02/2024 Unless otherwise specified, test(s) performed at: [facility], [address] [place] [id number] COMIC BOOK WRITER: Roman Sanchez M.D. For any questions, please call customer service at FREQUENCY:OTHER Resulting Agency Comment Specimen source: Serum us Agnes Alvarado MD LAB BLOOD ORDERABLES Final Re sult Performing Organization Address [facility] de Phone Number [facility] See order comments or contact performing lab Unknown, [place] * HD KINETICS (10/11/2024) Only the most recent of3 resultswithin the time period is included. % Urea Reduction 76 65 - 80 % [facility] 10/11/2024 10/13/2024 10: 47 AM CDT Narrative Resulting Agency Comment Specimen source: Plasma us Agnes Alvarado MD LAB BLOOD ORDERABLES Final Re sult Performing Organization Address [facility] de Phone Number [facility] See order comments or contact performing lab Unknown, [place] * POST CHEMISTRY (10/11/2024) Only the most recent of3 resultswithin the time period is included. BUN Post Dialysis 10 6 - 19 mg/dL [facility] 10/11/2024 10/13/2024 10: 47 AM CDT Narrative [facility] - 10/13/2024 Unless otherwise specified, test(s) performed at: [facility], [address] [place] [id number] COMIC BOOK WRITER: Roman Sanchez M.D. For any questions, please call customer service at FREQUENCY:MONTHLY Resulting Agency Comment Specimen source: Plasma Agnes Alvarado MD LAB BLOOD ORDERABLES Final Re sult [facility] See order comments or contact performing lab Unknown, [place] * [facility] Results (10/11/2024) Only the most recent of3 resultswithin the time period is included. Pathologist [facility] spKt/V Gotch 1.60 [facility] spKt/V (Daugirdas II) 1.59 [facility] eKt/V ([place]) 1.39 [facility] PCR 46.15 [facility] eKt/V Gotch 1.39 [facility] e Center nPCR_HD 0.77 [facility] WSTDKT/V 2.5 [facility] eNPCR 0.73 [facility] eKdrt/V 1.39 [facility] 10/11/2024 10/11/2024 [facility] [place] LAB BLOOD ORDERABLES Final Result [facility] Contact Performing lab Unknown, [place] * SPECIAL CHEMISTRY (09/13/2024) Pathologist [facility] Hemoglobin A1C 5.0 4.8 - 5.9 % [facility] 09/13/2024 09/14/2024 9:4 4 AM CDT Narrative [facility] - 09/14/2024 Unless otherwise specified, test(s) performed at: [facility], [address] [place] [id number] COMIC BOOK WRITER: Roman Sanchez M.D. For any questions, please call customer service at FREQUENCY:MONTHLY Resulting Agency Comment Specimen source: Blood Agnes Alvarado MD LAB BLOOD BANK TEST ORDERABLE S Final Result [facility] See order comments or contact performing lab Unknown, [place] from Last 3 Months Insurance Adv ([id number]) [place] [address] Adv ([id number]) Care Teams Retort Unloader Relationship Specialty Start Date End Date Savanah Garibay MD [address] [place] [address] PCP - General Geriatric Medicine 10/19/18
--- OUTSIDE RECORDS SUMMARY | 2024-11-12 17:48 | XMS_ITS | Encounter Summary ---
Author Organization [facility] Address [address] [place] [address] Phone Care Team Providers Care Mobile Homes Repairer Name Role Phone Savanah Garibay MD Primary Care Prov ider Reason for Visit * Reason Comments Med Refill Encounter Details Date Type Department Care Team (Late st Contact Info) Description 11/28/2022 Refill [facility] [address] [place] [address] Daisy Rojas MD [address] [place] [address] Social History Tobacco Use Types [...] on filedocumented in this encounter Care Teams Mobile Homes Repairer Relationship Specialty Start Date End Date Savanah Garibay MD [address] [place] [address] PCP - General Geriatric Medicine 10/19/18 documented as of this encounter
--- OUTSIDE RECORDS SUMMARY | 2024-11-12 17:48 | XMS_ITS | Encounter Summary ---
Author Organization [facility] Address [address] [place] [address] Phone Care Team Providers Care S[employer]rib[employer] Consultant Name Role Phone Savanah Garibay MD Primary Care Prov ider Reason for Visit * Reason Comments Med Refill Encounter Details Date Type Department Care Team (Late st Contact Info) Description 03/09/2023 Refill [facility] [address] [place] [address] Daisy Rojas MD [address] [place] [address] Social History Tobacco Use Types [...] on filedocumented in this encounter Care Teams [employer] Consultant Relationship Specialty Start Date End Date Savanah Garibay MD [address] [place] [address] PCP - General Geriatric Medicine 10/19/18 documented as of this encounter
--- OUTSIDE RECORDS SUMMARY | 2024-11-12 17:48 | XMS_ITS | Encounter Summary ---
Author Organization [facility] Address [address] [place] [address] Phone Care Team Providers Care Firmware Test Engineer Name Role Phone Savanah Garibay MD Primary Care Prov ider Reason for Visit * Reason Comments Med Refill Encounter Details Date Type Department Care Team (Late st Contact Info) Description 03/28/2020 Refill [facility] [address] [place] [address] Juana Castellon CNP Social History Tobacco Use Types Packs/Day Years [...] on filedocumented in this encounter Care Teams Firmware Test Engineer Relationship Specialty Start Date End Date Savanah Garibay MD [address] [place] [address] PCP - General Geriatric Medicine 10/19/18 documented as of this encounter
--- OUTSIDE RECORDS SUMMARY | 2024-11-12 17:48 | XMS_ITS | Encounter Summary ---
Author Organization [facility] [employer], [facility] Address [address] [place] [address] Phone Care Team Providers Care Local Company Flatbed Truck Driver Name Role Phone Savanah Garibay MD Primary Care Prov ider Encounter Details Date Type Department Care Team (Late st Contact Info) Description 10/23/2024 TCM in Dialysis Clinic [facility] [employer], [facility] [address] [place] [address] Roberta Cortez NP [address] [place] [address] Social History Tobacco Use Types [...] on file documented as of this encounter Progress Notes * Roberta Cortez NP - 10/23/2024 12:00 AM CDT Patient: Jose Guadalupe Claudio : 1980 Note Type: Dialysis TCM Service Date: 10/23/2024 The patient was seen for a [id number] visit as part of Transitional Care Management services. Attending Health Coordinator: KSENIA CRUZ Dialysis Location: [facility] Schedule: Shift: 2 INTERACTIVE CONTACT Contact with the patient or caregiver was made or attempted within 2 business days of discharge - details in the medical record. HOSPITALIZATION SUMMARY Patient transitioned from: Hospital Patient transitioned to: Home Admit Date: 10/13/2024 Discharge Date: 10/18/2024 Discharged info reviewed: Followed-up on or reviewed need for pending tests/treatments as noted Reason for admission: CP- heart cath with stent placement COMMENTS: follow up with cardiology HOME MEDICATIONS Discharge med list reviewed - changes reconciled and discussed with patient. Active treatment medication orders reviewed with changes noted. TREATMENT MEDICATIONS ORDERS Heparin Sodium (Porcine) 1,000 Units/mL Catheter Lock Arterial 1800 units Arterial Red Port Every Treatment Post Dialysis 02/02/2024 - 01/31/2025 Heparin Sodium (Porcine) 1,000 Units/mL Catheter Lock Venous 1800 units Venous Blue Port Every Treatment Post Dialysis 02/02/2024 - 01/31/2025 Heparin Sodium (Porcine) 1,000 Units/mL Systemic 6000 units IVP Every Treatment 01/24/2024 - 01/22/2025 Iron Sucrose (Venofer) 100 mg IVP 3X Week During Dialysis 10/16/2024 - 10/25/2024 PHYSICAL EXAM Exam performed. Vital Signs Reviewed. Lungs - Clear. CV - Blood pressure noted. 1+ edema. DIALYSIS PRESCRIPTION Dry weight during admission reviewed - no change to EDW. Treatment Data Treatment Date: 10/23/2024 started at: 11:34 AM Dialysate / Machine Temp (prescribed): 37.0*C Dialysate / Machine Temp (actual): 35.5*C BFR (prescribed): 450 BFR (actual): 450 DFR (prescribed): Autoflow 2.0 DFR (actual): 800 Prescribed Time: 04:00 EDW (kg): 63.0 Dialyzer: 180NRe Optiflux Dialysate: 2.0 K, 2.5 Ca, 1.0 Mg, 100 Dextrose (G2251) Sodium: 138 Bicarb: 35 Pre Dialysis Vitals Pre BP Sit: 106/76 Pre Wt (kg): 66.0 EDW Deviation (kg): 3.0 Temp: 97.8*F Current Dialysis Vitals BP Sit: 97/71 AP/MANAGER ADVERTISING: -- Pulse: 71 CARE COORDINATION Post-discharge follow-up appointments reviewed with the patient. EDUCATION Education relevant to the discharge diagnosis provided to the patient or caregiver IMPRESSION & PLAN COMMENTS: chest pain?status post heart catheter with stent placement. Started on Imdur and Plavix ESRD?continue dialysis TTS VISIT DIAGNOSES CPT Code 21110 - High complexity, seen within 7 days of discharge. N18.6 End stage renal disease I21.4 Non-ST elevation (NSTEMI) myocardial infarction Signed by: ROBERTA CORTEZ NP on 10/23/2024 at 03:15:23 PM Transcribed by: ROBERTA CORTEZ NP on 10/23/2024 at 03:15:23 PM documented in this encounter Plan of Treatment Not on file documented as of this encounter Visit Diagnoses Not on filedocumented in this encounter Care Teams Local Company Flatbed Truck Driver Relationship Specialty Start Date End Date Savanah Garibay MD [address] [facility] [address] [place] [address] PCP - General Geriatric Medicine 10/19/18 documented as of this encounter
--- OUTSIDE RECORDS SUMMARY | 2024-11-12 17:48 | XMS_ITS | Encounter Summary ---
Author Organization [facility] Address [address] [place] [address] Phone Care Team Providers Care Cutlet Maker Pork Name Role Phone Savanah Garibay MD Primary Care Prov ider Reason for Visit * Reason Comments Med Refill Encounter Details Date Type Department Care Team (Late st Contact Info) Description 05/16/2020 Refill [facility] [address] [place] [address] Juana Castellon CNP Social History [...] on filedocumented in this encounter Care Teams Cutlet Maker Pork Relationship Specialty Start Date End Date Savanah Garibay MD [address] [place] [address] PCP - General Geriatric Medicine 10/19/18 documented as of this encounter
--- OUTSIDE RECORDS SUMMARY | 2024-11-12 17:48 | XMS_ITS | Encounter Summary ---
Author Organization [email or web address] Address [address] [place] [address] Phone Care Team Providers Care Psychiatric Nursing Assistant Name Role Phone Savanah Garibay MD Primary Care Prov ider Reason for Visit * Reason Comments Med Refill Encounter Details Date Type Department Care Team (Late st Contact Info) Description 06/26/2020 Refill [facility] [address] [place] [address] Juana Castellon CNP Social History [...] on filedocumented in this encounter Care Teams Psychiatric Nursing Assistant Relationship Specialty Start Date End Date Savanah Garibay MD [address] [place] [address] PCP - General Geriatric Medicine 10/19/18 documented as of this encounter
--- OUTSIDE RECORDS SUMMARY | 2024-11-12 17:48 | XMS_ITS | Encounter Summary ---
Author Organization [facility] Address [address] [place] [address] Phone Care Team Providers Care Conveyor Line Bakery Worker Name Role Phone Savanah Garibay MD Primary Care Prov ider Reason for Visit * Reason Comments Med Refill Encounter Details Date Type Department Care Team (Late st Contact Info) Description 04/06/2023 Refill [facility] [address] [place] [address] Melia Lomeli MD [address] [place] [address] Social History Tobacco Use Types Packs/Day Years [...] on filedocumented in this encounter Care Teams Conveyor Line Bakery Worker Relationship Specialty Start Date End Date Savanah Garibay MD [address] [place] [address] PCP - General Geriatric Medicine 10/19/18 documented as of this encounter
--- OUTSIDE RECORDS SUMMARY | 2024-11-12 17:48 | XMS_ITS | Encounter Summary ---
Author Organization [facility] Address [address] [place] [address] Phone Care Team Providers Care Turf Manager Name Role Phone Savanah Garibay MD Primary Care Prov ider Reason for Visit * Reason Comments Med Refill Encounter Details Date Type Department Care Team (Late st Contact Info) Description 06/14/2020 Refill [facility] [address] [place] [address] Juana Castellon CNP Social History [...] on filedocumented in this encounter Care Teams Turf Manager Relationship Specialty Start Date End Date Savanah Garibay MD [address] [place] [address] PCP - General Geriatric Medicine 10/19/18 documented as of this encounter
--- OUTSIDE RECORDS SUMMARY | 2024-11-12 17:48 | XMS_ITS | Encounter Summary ---
Author Organization [facility] Address [address] [place] [address] Phone Care Team Providers Care Senior Payroll Administrator Name Role Phone Savanah Garibay MD Primary Care Prov ider Reason for Visit * Reason Comments Med Refill Encounter Details Date Type Department Care Team (Late st Contact Info) Description 03/12/2023 Refill [facility] [address] [place] [address] Daisy Rojas MD [address] [place] [address] Social History Tobacco Use Types [...] on filedocumented in this encounter Care Teams Senior Payroll Administrator Relationship Specialty Start Date End Date Savanah Garibay MD [address] [place] [address] PCP - General Geriatric Medicine 10/19/18 documented as of this encounter
--- OUTSIDE RECORDS SUMMARY | 2024-11-12 17:48 | XMS_ITS | Encounter Summary ---
Author Organization [facility] Address [address] [place] [address] Phone Care Team Providers Care Treating Plant Supervisor Name Role Phone Savanah Garibay MD Primary Care Prov ider Reason for Visit * Reason Comments Med Refill Encounter Details Date Type Department Care Team (Late st Contact Info) Description 07/10/2023 Refill [facility] [address] [place] [address] Melia Lomeli MD [address] [place] [address] Social History Tobacco Use Types Packs/Day [...] on filedocumented in this encounter Care Teams Treating Plant Supervisor Relationship Specialty Start Date End Date Savanah Garibay MD [address] [place] [address] PCP - General Geriatric Medicine 10/19/18 documented as of this encounter
--- OUTSIDE RECORDS SUMMARY | 2024-11-12 17:49 | XMS_ITS | Encounter Summary ---
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) Social History Tobacco Use Types Packs/Day Years Used Date Smoking Tobacco: Never Assessed Sex and Gender Information Value Date Recorded Sex Assigned at Not on file Legal Sex Male 10:14 AM EDT Gender Identity Not on file Sexual Orientation Not on file documented as of this encounter Plan of Treatment Not on file documented as of this encounter Visit Diagnoses Diagnosis 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
--- OUTSIDE RECORDS SUMMARY | 2024-11-12 17:49 | XMS_ITS | Encounter Summary ---
Author Organization [facility] [employer] [employer] Address [address] [place] [address] Phone Care Team Providers Care Perch Mender Name Role Phone Savanah Garibay MD Primary Care Prov ider Encounter Details Date Type Department Care Team (Late st Contact Info) Description 11/08/2024 Orders Only [facility] [address] [place] [address] Agnes Alvarado MD [address] [place] [address] Social History Tobacco Use Types [...] on file documented as of this encounter Procedures Procedure Name Priority Date/Time Associated Diagnosis Comments HEMATOLOGY Routine 11/08/2024 documented in this encounter Results * (ABNORMAL) HEMATOLOGY (11/08/2024) Hemoglobin 10.9(L) 14.0 - 18.0 g/dL [facility] Hemoglobin x 3 32.7(L) 42.0 - 54.0 % [facility] 11/08/2024 11/09/2024 9:1 6 AM CDT Narrative [facility] - 11/09/2024 Unless otherwise specified, test(s) performed at: [facility], [address] [place] [id number] PROCESS DEVELOPMENT CHEMIST: Roman Sanchez M.D. For any questions, please call customer service at [facility]:OTHER Resulting Agency Comment Specimen source: Blood us Agnes Alvarado MD LAB BLOOD ORDERABLES Final Re sult [facility] See order comments or contact performing lab Unknown, [place] documented in this encounter Visit Diagnoses Not on filedocumented in this encounter Care Teams Perch Mender Relationship Specialty Start Date End Date Savanah Garibay MD [address] [facility] [address] [place] [address] PCP - General Geriatric Medicine 10/19/18 documented as of this encounter
--- OUTSIDE RECORDS SUMMARY | 2024-11-12 17:49 | XMS_ITS | Encounter Summary ---
Author Organization [facility] Address [address] [place] [address] Phone Care Team Providers Care Glass Technician Name Role Phone Savanah Garibay MD Primary Care Prov ider Reason for Visit * Reason Comments Med Refill Encounter Details Date Type Department Care Team (Late st Contact Info) Description 09/27/2022 Refill [facility] [address] [place] [address] Daisy Rojas MD [address] [place] [address] Social History Tobacco Use Types [...] on filedocumented in this encounter Care Teams Glass Technician Relationship Specialty Start Date End Date Savanah Garibay MD [address] [place] [address] PCP - General Geriatric Medicine 10/19/18 documented as of this encounter
--- OUTSIDE RECORDS SUMMARY | 2024-11-12 17:49 | XMS_ITS | Encounter Summary ---
Author Organization [facility] [employer], [facility] Address [address] [place] [address] Phone Care Team Providers Care Production Foreman Name Role Phone Savanah Garibay MD Primary Care Prov ider Encounter Details Date Type Department Care Team (Late st Contact Info) Description 01/31/2024 TCM in Dialysis Clinic [facility] [employer], [facility] [address] [place] [address] Agnes Alvarado MD [address] [place] [address] Social History Tobacco Use Types [...] as of this encounter Progress Notes * Agnes Alvarado MD - 01/31/2024 12:00 AM CDT Patient: Jose Guadalupe Claudio, 1980, 43y, M Dialysis Location: [facility] Attending Wireless Cellular Technician: Agnes Alvarado Service Date: 01/31/2024 Service Provider: Agnes Alvarado MD I met face to face with the patient today. INITIAL PATIENT CONTACT Comments: He is feeling better and has a better appetite. This face to face visit occurred within 2 business days of the patient?s discharge HOSPITALIZATION SUMMARY Patient has transitioned in the past 30 days from: Hospital. Setting patient transitioned to: Home. Admission Date: 01/20/2024 Discharge Date: 01/29/2024 Reason for admission: Fungal peritonitis Discharge diagnosis: Fungal peritonitis Discharge information reviewed: Followed up on or reviewed need for pending tests / treatments as noted Comments: Had PD catheter removed. HD tunneled catheter placed. DIAGNOSES Conditions addressed during visit: E11.21 Type 2 diabetes mellitus with diabetic nephropathy Comments: DM with better hga1c To follow up with PCP for DM management. N18.6 End stage renal disease Comments: Transitioned from PD to HD. Now on HD TTS. T85.71xD Infection and inflammatory reaction due to peritoneal dialysis catheter, subsequent encounter Comments: PD catheter removed. Now on Diflucan for total of 2 weeks. MEDICATIONS Comments: He is to bring all of his current pill bottles to the dialysis unit to make sure he is not taking any prior medications that were discontinued or changed during his hospital stay. Discharge med list reviewed - changes reconciled and discussed with patient. PHYSICAL EXAM Comments: Affect us better. NAD Exam Performed. Vital Signs Reviewed. CV - Blood pressure noted. EXT - No edema. EXT - No ulcers. DIALYSIS PRESCRIPTION Dry weight during admission reviewed - no change to EDW. EDUCATION Education relevant to the discharge diagnosis provided to the patient or caregiver IMPRESSION & PLAN Comments: Continue current treatment plan. HD TTS Signed By: Agnes Alvarado MD on 01/31/2024 3:44:05 PM documented in this encounter Plan of Treatment Not on file documented as of this encounter Visit Diagnoses Not on filedocumented in this encounter Care Teams Production Foreman Relationship Specialty Start Date End Date Savanah Garibay MD [address] [facility] [address] [place] [address] PCP - General Geriatric Medicine 10/19/18 documented as of this encounter
--- OUTSIDE RECORDS SUMMARY | 2024-11-12 17:49 | XMS_ITS | Encounter Summary ---
Author Organization [facility] Address [address] [place] [address] Phone Care Team Providers Care Signaler Name Role Phone Savanah Garibay MD Primary Care Prov ider Reason for Visit * Reason Comments Med Refill Encounter Details Date Type Department Care Team (Late st Contact Info) Description 10/27/2020 Refill [facility] [address] [place] [address] Daisy Rojas MD [address] [place] [address] Social History Tobacco Use Types [...] on filedocumented in this encounter Care Teams Signaler Relationship Specialty Start Date End Date Savanah Garibay MD [address] [place] [address] PCP - General Geriatric Medicine 10/19/18 documented as of this encounter
--- OUTSIDE RECORDS SUMMARY | 2024-11-12 17:49 | XMS_ITS | Encounter Summary ---
Author Organization [facility] [employer] Address [address] [place] [address] Phone Care Team Providers Care Contract Modeler Name Role Phone Savanah Garibay MD Primary Care Prov ider Reason for Visit * Reason Comments Med Refill Encounter Details Date Type Department Care Team (Late st Contact Info) Description 07/09/2021 Refill [facility] [address] [place] [address] Juana Castellon CNP Social History [...] on filedocumented in this encounter Care Teams Contract Modeler Relationship Specialty Start Date End Date Savanah Garibay MD [address] [place] [address] PCP - General Geriatric Medicine 10/19/18 documented as of this encounter
--- OUTSIDE RECORDS SUMMARY | 2024-11-12 17:49 | XMS_ITS | Clinical Summary ---
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 [address] [place] [address] Provider, Abstract Needing General Surgery 08/16/2024 Telephone [facility] [address] [place] [address] Esteban Bucio Appointment Notification 08/15/2024 Telephone [facility] [place] [address] [place] [address] Odette Batista MD Appointment Notification 08/14/2024 External Device Data STL ABSTRACTION Provider, Abstract 08/13/2024 Telephone [facility] [place] [address] [place] [address] Odette Batista MD Surgery Talk [...] drink = 0.6 oz pur e alcohol) Sex and Gender Information Value Date Recorded Sex Assigned at Not on file Legal Sex Male 3:36 AM CONSUMER LENDING MANAGER Gender Identity Not on file Sexual Orientation [...] 07/09/2024 9:30 AM CDT Plan of Treatment Health Maintenance Due Date Last Done Comments HPV VACCINES (1 - Male 3-dos e series) 10/13/1994 DIABETES ANNUAL RETINAL EXAM 10/13/1997 HEPATITIS B VACCINES (1 of 3 - Risk Dialysis 4-dose series) 1999 06/05/2020, 02/25/2020, 01/21/2020 DIABETES ANNUAL FOOT EXAM 12/01/2016 12/02/2015 DIABETES MICROALBUMIN ANNUAL SCREEN 10/22/2020 10/23/2019, 07/01/2018, 04/08/2016, Additional history exists LDL CHOLESTEROL ANNUAL 10/22/2020 , 07/01/2018, 12/27/2017, Additional history exists COVID-19 Vaccine (3 - 2023-2 5 season) 2023 07/30/2020, 06/30/2020 FIT-DNA Q 3 years 10/13/2024 FIT/FOBT Q 1 year 10/13/2024 Flex Sig/CT Colonography Q 5 years 10/13/2024 INFLUENZA VACCINE (#1) 2024 , 01/21/2023, 12/31/2021, Additional history exists DIABETES HBA1C Q 6 MONTHS 12/15/20242024, 06/20/2020, 06/20/2020, Additional history exists DTAP/TDAP/TD VACCINES (2 - T d or Tdap) 12/02/2031 12/01/2021, 05/12/2015 COLORECTAL SCREENING 05/11/2032 05/11/2022, 05/11/19 Colorectal Cancer Screening 05/11/2032 Medical Devices Implanted Type Area Cyber Security Architect Device Identifier Shelf Expiration Date Model / Serial / Lot Cath Dialysis Glidepath 14.5fr 23cm Std [id number]/22/[id number] 0 Implanted:Qty: 1 on 01/01/2020 by Sudha Montes MD Catheter Right: Chest CR BARD[employer] [id number] 04/10/2021 [id number] / / [id number] Cath Pd Jez Curl 2cuff 63550-241 - [id number] Implanted:Qty: 1 on 01/10/2020 by Adryan Witt DO Catheter N/A: Abdomen MED[employer] - COVIDIEN [id number] 07/08/2024 [id number] / / [id number] Cath Dialysis Glidepath 14.5fr 24cm Std [id number] - [id number] Implanted:Qty: 1 on 01/23/2024 by Willie Umaña MD at [facility] Catheter Right: Chest BARD DAGMAR VASC [id number] 07/09/2025 [id number] / / [id number] Hemostatic Surgifoam Sz100 1973 - [id number] Implanted:Qty: 1 on 12/29/2017 by Martinez Rodrigues MD Hemostatic N/A: Chest J[employer]J- [employer]ON [employer] 09/19/20211973 / / [id number] Ring Vein Marking 10mm [id number] - [id number] Implanted:Qty: 2 on 12/29/2017 by Martinez Rodrigues MD Other N/A: Chest TELEFLEX- PILL WECK LILY L P [id number] / / Description:scan # [id number] Sealant Fibrin Evicel 5ml 3905 - [id number] Implanted:Qty: 1 on 12/29/2017 by Martinez Rodrigues MD Other N/A: Heart J&J- ETHICON INC 08/08/2020 [id number] / / [id number] Fiatt Ptfe Thck 1.6mmx2.5x10.2cm [id number] - [id number] Implanted:Qty: 1 on 12/29/2017 by Martinez Rodrigues MD Tissue N/A: Heart CR BARD[employer] 10/06/2022 [id number] / / [id number] Procedures Procedure Name Priority Date/Time Associated Diagnosis Comments COLONOSCOPY REPORT 05/11/2022 9: 02 AM CONSUMER LENDING MANAGER HEMOGLOBIN A1C Routine 06/20/2020 9:34 AM CONSUMER LENDING MANAGER MICROALBUMIN/CREATIN INE RATIO, RANDOM UR Routine 10/23/2019 12:52 PM CDT LIPID PANEL Routine 10/23/2019 12:49 PM CDT from Last 3 Months or Most Recently Relevant to Health Maintenance Results * COLONOSCOPY REPORT (05/11/2022 9:02 AM CONSUMER LENDING MANAGER) Narrative Procedure Note Gwendolyn Marks MD (John) - 05/11/2022 9:01 AM CST [facility] GI Patient Name: Jose Guadalupe Claudio Procedure [...] Withdrawal Time Scope In: Scope Out: 100 HUSAM Carter Gwendolyn Marks MD (John) GI PROCEDURE ORDERABLES Final Result * (ABNORMAL) HEMOGLOBIN A1C (06/20/2020 9:34 AM CONSUMER LENDING MANAGER) HEMOGLOBIN A1C 6.1(H) <=5.6 % 06/20/2020 10:34 AM [facility] EST. AVG GLUCOSE, A1C 128 mg/dL 06/20/2020 10:34 AM [facility] Blood Collection / Unknown 06/20/2020 9:34 AM CONSUMER LENDING MANAGER 06/20/2020 9:37 AM CONSUMER LENDING MANAGER Narrative [facility] - 06/20/2020 10:34 AM CONSUMER LENDING MANAGER HGB A1C INTERPRETATION NORMAL: <5.7% PRE-DIABETES: 5.7 - 6.4% DIABETES: 6.5% OR GREATER Falsely low A1C measurements can occur when: 1. Anemia and/or hemolytic anemia is present. 2. Hemoglobin variants present. 3. Renal failure. 4. Transfusion of blood product in the last 120 days. We recommend ordering a fructosamine test([id number]) to more accurately assess glycemic status if any of the above conditions are present. Savanah Garibay MD CHEMISTRY ORDERABL ES Final Result Performing Organization Address [facility] Co de Phone Number [facility] [place] CLIA# [id number] [address] [place] [address] [facility] [place] CLIA# [id number] [address] [place] [address] * MICROALBUMIN/CREATININE RATIO, RANDOM UR (10/23/2019 12:52 PM CDT) MICROALBUMIN, URINE >440.0 No Reference Range mg/dL 10/23/2019 6:47 PM CDT [facility] CREATININE, URINE 76.4 40.0 - 278.0 mg/dL 10/23/2019 6:47 PM CDT [facility] Comment:Reference Range vari es with fluid intake and diet. Urine URINE SPECIMEN OBTAINED BY CLEAN CATCH PROCEDURE / Unknown Collection / Unknown 10/23/2019 12:52 PM CDT 10/23/2019 3:00 PM CDT Narrative [facility] - 10/23/2019 6:47 PM CDT Condition Microalbumin/Creat ratio Normal Males <17 Normal Females <25 Microalbuminuria Males 17-299 Microalbuminuria Females 25-299 Overt proteinuria >=300 Savanah Garibay MD URINE ORDERABLES F inal Result Performing Organization Address City/[facility]/ZIP Co de Phone Number [facility] CLIA# [id number] [address] [place] [address] * (ABNORMAL) LIPID PANEL (10/23/2019 12:49 PM CDT) CHOLESTEROL 137 <200 mg/dL 10/23/2019 4:25 PM CDT [facility] TRIGLYCERIDE 35 <150 mg/dL 10/23/2019 4:25 PM CDT [facility] HDL 62(H) 40 - 59 mg/dL 10/23/2019 4:25 PM CDT [facility] LDL CALCULATED 68 <100 mg/dL 10/23/2019 4:25 PM T [facility] NON-HDL CHOLESTEROL 75 <130 mg/dL 10/23/2019 4:25 PM CDT [facility] Blood Venipuncture / Unknown 10/23/2019 12:49 PM CDT 10/23/2019 3:00 PM CDT Narrative [facility] - 10/23/2019 4:25 PM [...] Reference Ranges for Lipid Panels (NCEP/AMA) . Savanah Garibay MD CHEMISTRY ORDERABL ES Final Result [facility] IA# [id number] [facility] [place] [address] from Last 3 Months or Most Recently Relevant to Health Maintenance Insurance RX [facility] Medicare Part D [facility] MEDICARE HMO Advance Directives For more information, please contact: [phone] * Full Code (Latest Code Status on [...] 12:59 AM 10/08/2022 8:54 PM Care Teams Glory Hole Tender Relationship Specialty Start Date End Date Yaniv Moe MD [facility] [place] [address] PCP - General Family Practice 10/27/23
--- OUTSIDE RECORDS SUMMARY | 2024-11-12 17:49 | XMS_ITS | Encounter Summary ---
Author Organization [facility] Address [address] [place] [address] Phone Care Team Providers Care Candy Decorator Name Role Phone Savanah Garibay MD Primary Care Prov ider Reason for Visit * Reason Comments Med Refill Encounter Details Date Type Department Care Team (Late st Contact Info) Description 06/13/2022 Refill [facility] [address] [place] [address] Daisy Rojas MD [address] [place] [address] Social History Tobacco Use Types [...] on filedocumented in this encounter Care Teams Candy Decorator Relationship Specialty Start Date End Date Savanah Garibay MD [address] [place] [address] PCP - General Geriatric Medicine 10/19/18 documented as of this encounter
--- OUTSIDE RECORDS SUMMARY | 2024-11-12 17:49 | XMS_ITS | Encounter Summary ---
Author Organization [facility] Address [address] [place] [address] Phone Care Team Providers Care Ballet Teacher Name Role Phone Savanah Garibay MD Primary Care Prov ider Reason for Visit * Reason Comments Med Refill Encounter Details Date Type Department Care Team (Late st Contact Info) Description 03/15/2022 Refill [facility] [address] [place] [address] Juana Castellon CNP Social History [...] on filedocumented in this encounter Care Teams Ballet Teacher Relationship Specialty Start Date End Date Savanah Garibay MD [address] [place] [address] PCP - General Geriatric Medicine 10/19/18 documented as of this encounter
--- OUTSIDE RECORDS SUMMARY | 2024-11-12 17:49 | XMS_ITS | Encounter Summary ---
Author Organization [facility] [employer] Address [address] [place] [address] Phone Care Team Providers Care Thermodynamic Physicist Name Role Phone Savanah Garibay MD Primary Care Prov ider Encounter Details Date Type Department Care Team (Late st Contact Info) Description 11/06/2024 Orders Only [facility] [address] [place] [address] Agnes Alvarado MD [address] [place] [address] Social History Tobacco Use Types [...] Priority Date/Time Associated Diagnosis Comments HEMATOLOGY Routine 11/06/2024 documented in this encounter Results * (ABNORMAL) HEMATOLOGY (11/06/2024) Hemoglobin 10.4(L) 14.0 - 18.0 g/dL [facility] Hemoglobin x 3 31.2(L) 42.0 - 54.0 % [facility] 11/06/2024 11/07/2024 9:0 4 AM CDT Narrative [facility] - 11/07/2024 Unless otherwise specified, test(s) performed at: [facility], [address] [place] [id number] PRINTED CIRCUIT BOARD DRAFTER: Roman Sanchez M.D. For any questions, please call customer service at FREQUENCY:OTHER Resulting Agency Comment Specimen source: Blood us Agnes Alvarado MD LAB BLOOD ORDERABLES Final Re sult [facility] See order comments or contact performing lab Unknown, [place] documented in this encounter Visit Diagnoses Not on filedocumented in this encounter Care Teams Thermodynamic Physicist Relationship Specialty Start Date End Date Savanah Garibay MD [address] [facility] [address] [place] [address] PCP - General Geriatric Medicine 10/19/18 documented as of this encounter
--- OUTSIDE RECORDS SUMMARY | 2024-11-12 17:49 | XMS_ITS | Encounter Summary ---
Author Organization [facility] Address [address] [place] [address] Phone Care Team Providers Care J2Ee Consultant Name Role Phone Savanah Garibay MD Primary Care Prov ider Encounter Details Date Type Department Care Team (Late st Contact Info) Description 11/20/2019 Orders Only [facility] [address] [place] [address] Acute kidney failure with lesion of tubular necrosis (HCC); Iron deficiency anemia, not otherwise specified Social History Tobacco Use Types Packs/Day Years [...] on file Sexual Orientation Not on file COVID-19 Exposure Response Date Recorded In the last month, have you been in contact with someone who was confirmed or suspected to have Coronavirus / COVID-19? No / Unsure 11/09/2019 3:53 PM EDT documented as of this encounter Progress Notes * Juana Castellon CNP - 11/20/2019 2:34 AM CDT Please call the patient regarding his abnormal results. Renal function down slightly. Stop Losartanimmediately. Decrease Lasix to 40 mg po q am. Keep daily weight log and blood pressure log with these directions... I am aware cardiology just adjusted Coreg but I need to stop the Losartan due to kidney function. If his weight goes up by more that 5# he needs to call us. Also please keep fluid restriction to no more than 64 ounces unless less per cardiology and low sodium diet. Thank you! Recheck RFP in 1 week. Blood pressure monitoring education: Monitor home blood pressure values after sitting for 5 minutes with back and arm support. Check blood pressure first thing in the morning and then again in either the afternoon or evening x 1 week. Call the office with readings. Bring your log and blood pressure cuff to your next visit. * Juana Castellon CNP - 11/20/2019 2:34 AM CDT Waiting for patient's repeat RFP. Would you please make sure he is having it done? Thank you. documented in this encounter Plan of Treatment Not on file documented as of this encounter Procedures Procedure Name Priority Date/Time Associated Diagnosis Comments PROTEIN / CREATININE RATIO, URINE Routine 12/11/2019 12:10 PM CDT Acute kidney failure with lesion of tubular necrosis (HCC) IRON PANEL (FE, TIBC, TSAT) Routine 11/20/2019 12:33 PM CDT Iron deficiency anemia, not otherwise specified Acute kidney failure with lesion of tubular necrosis (HCC) RENAL FUNCTION PANEL Routine 11/20/2019 12:33 PM CDT Acute kidney failure with lesion of tubular necrosis (HCC) documented in this encounter Results * (ABNORMAL) Protein / creatinine ratio, urine (12/11/2019 12:10 PM CDT) Protein, Ur > 600(H) 0 - 20 mg/dL [facility] Comment:Unable to calculate urine protein/creatinine ratio because urine protein result is outside of reportable range. Creatinine, Urine 76.6 40.0 - 278.0 mg/dL [facility] Comment: Reference Range varies with fluid intake and diet. Specimen Source: Urine, unspecified source Performed at: [facility] [address] [id number] Vp Of Digital Marketing: Yony Malik MD CLIA # [id number] Urine specimen (specimen) Urine specimen obtained by clean catch procedure / Unknown 12/11/2019 12:10 PM CDT 11/20/2019 4:52 PM CDT [facility] URINE ORDERABLES Final Re sult Performing Organization Address City/[facility] Co de Phone Number [facility] * (ABNORMAL) Iron Panel (Fe, TIBC, TSAT) (11/20/2019 12:33 PM CDT) Iron 35(L) 59 - 158 ug/dL [facility] TIBC 192(L) 250 - 450 ug/dL [facility] Iron Saturation (TSat) 18 15 - 60 % [facility] Comment: Performed at: [facility] [address] [id number] Vp Of Digital Marketing: Yony Malik MD CLIA # [id number] Blood specimen (specimen) Venous blood / Unknown 11/20/2019 12:33 PM CDT 11/20/2019 4:52 PM CDT [facility] BLOOD ORDERABLES Final Re sult [facility] * (ABNORMAL) Renal funtion panel (11/20/2019 12:33 PM CDT) Sodium 142 136 - 145 mmol/L [facility] Potassium 4.2 3.5 - 5.1 mmol/L [facility] Chloride 107 98 - 107 mmol/L [facility] Carbon Dioxide (CO2) 22 22 - 29 mmol/L [facility] Calcium 8.2(L) 8.6 - 10.0 mg/dL [facility] BUN 48(H) 6 - 20 mg/dL [facility] Creatinine 4.25(H) 0.67 - 1.17 mg/dL [facility] Glucose 185(H) 74 - 99 mg/dL [facility] Albumin 2.8(L) 3.5 - 5.2 g/dL [facility] Phosphorus, Serum 5.4(H) 2.5 - 4.5 mg/dL [facility] eGFR Non- 16(L) >=60 mL/min/1.7 3 sq meter [facility] Comment: eGFR has not been validated for use in the elderly (> 70 years of age), women, patients with serious co-morbid conditions, or persons with extremes of body size or muscle mass and should also be interpreted with caution in patients with acute kidney failure, dialysis dependent patients, patients reporting exceptional dietary intake (e.g. vegetarian diet, high protein diets, creatine supplementation), and patients with severe liver disease. Based on National Kidney Disease Education Program If patient is , please refer to the GFR result. eGFR 19(L) >=60 mL/min/1.7 3 sq meter [facility] Anion Gap 13 9 - 20 mmol/L [facility] Comment: TEST COMMENT: Fasting?->No Performed at: [facility] [address] Vp Of Digital Marketing: MD SCARLETT Cardoso # [id number] Blood specimen (specimen) Venous blood / Unknown 11/20/2019 12:33 PM CDT 11/20/2019 4:52 PM CDT [facility] LAB BLOOD ORDERABLES Final Re sult [facility] documented in this encounter Visit Diagnoses Diagnosis Acute kidney failure with lesion of tubular necrosis (HCC) Acute kidney failure with lesion of tubular necrosis Iron deficiency anemia, not otherwise specified documented in this encounter Care Teams J2Ee Consultant Relationship Specialty Start Date End Date Savanah Garibay MD [address] [place] [address] PCP - General Geriatric Medicine 10/19/18 documented as of this encounter
--- OUTSIDE RECORDS SUMMARY | 2024-11-12 17:49 | XMS_ITS | Encounter Summary ---
Author Organization [facility] Address [address] [place] [address] Phone Care Team Providers Care Cv/Cvn Cv Tsc System Operator Name Role Phone Savanah Garibay MD Primary Care Prov ider Reason for Visit * Reason Comments Med Refill Encounter Details Date Type Department Care Team (Late st Contact Info) Description 07/24/2024 Refill [facility] [address] [place] [address] Agnes Alvarado MD [address] [place] [address] Social History Tobacco Use [...] on filedocumented in this encounter Care Teams Cv/Cvn Cv Tsc System Operator Relationship Specialty Start Date End Date Savanah Garibay MD [address] [place] [address] PCP - General Geriatric Medicine 10/19/18 documented as of this encounter
--- OUTSIDE RECORDS SUMMARY | 2024-11-12 17:49 | XMS_ITS | Encounter Summary ---
Author Organization [facility] Address [address] [place] [address] Phone Care Team Providers Care Customs Collector Name Role Phone Savanah Garibay MD Primary Care Prov ider Reason for Visit * Reason Comments Med Refill Encounter Details Date Type Department Care Team (Late st Contact Info) Description 10/12/2022 Refill [facility] [address] [place] [address] Daisy Rojas MD [address] [place] [address] Social History Tobacco Use Types [...] on filedocumented in this encounter Care Teams Customs Collector Relationship Specialty Start Date End Date Savanah Garibay MD [address] [place] [address] PCP - General Geriatric Medicine 10/19/18 documented as of this encounter
--- OUTSIDE RECORDS SUMMARY | 2024-11-12 17:49 | XMS_ITS | Encounter Summary ---
Author Organization [facility] Address [address] [place] [address] Phone Care Team Providers Care Well Tester Name Role Phone Savanah Garibay MD Primary Care Prov ider Reason for Visit * Reason Comments Med Refill Encounter Details Date Type Department Care Team (Late st Contact Info) Description 06/01/2021 Refill [facility] [address] [place] [address] Juana Castellon CNP Social History [...] on filedocumented in this encounter Care Teams Well Tester Relationship Specialty Start Date End Date Savanah Garibay MD [address] [place] [address] PCP - General Geriatric Medicine 10/19/18 documented as of this encounter
--- OUTSIDE RECORDS SUMMARY | 2024-11-12 17:49 | XMS_ITS | Encounter Summary ---
Author Organization [facility] Address [address] [place] [address] Phone Care Team Providers Care Software Developer Consultant Name Role Phone Savanah Garibay MD Primary Care Prov ider Reason for Visit * Reason Comments Med Refill Encounter Details Date Type Department Care Team (Late st Contact Info) Description 05/15/2021 Refill [facility] [address] [place] [address] Juana Castellon CNP Social History [...] on filedocumented in this encounter Care Teams Software Developer Consultant Relationship Specialty Start Date End Date Savanah Garibay MD [address] [place] [address] PCP - General Geriatric Medicine 10/19/18 documented as of this encounter
--- OUTSIDE RECORDS SUMMARY | 2024-11-12 17:49 | XMS_ITS | Encounter Summary ---
Author Organization [facility] Address [address] [place] [address] Phone Care Team Providers Care Pre Sales Network Engineer Name Role Phone Savanah Garibay MD Primary Care Prov ider Encounter Details Date Type Department Care Team (Late st Contact Info) Description 12/25/2019 Orders Only [facility] [address] [place] [address] Daisy Rojas MD [address] [place] [address] Stage 5 chronic kidney disease (HCC) Social History Tobacco Use Types Packs/Day [...] have Coronavirus / COVID-19? No / Unsure 12/28/2019 4:09 PM EDT documented as of this encounter Plan of Treatment Not on file documented as of this encounter Visit Diagnoses Diagnosis Stage 5 chronic kidney disease (HCC) documented in this encounter Care Teams Pre Sales Network Engineer Relationship Specialty Start Date End Date Savanah Garibay MD [address] [facility] [address] [place] [address] PCP - General Geriatric Medicine 10/19/18 documented as of this encounter
--- OUTSIDE RECORDS SUMMARY | 2024-11-12 17:49 | XMS_ITS | Encounter Summary ---
Author Organization [email or web address] Address [address] [place] [address] Phone Care Team Providers Care Ammonia Technician Name Role Phone Savanah Garibay MD Primary Care Prov ider Encounter Details Date Type Department Care Team (Late st Contact Info) Description 12/07/2019 Orders Only [facility] [address] [place] [address] Acute kidney failure with lesion of tubular necrosis (HCC); Iron deficiency anemia, not otherwise specified; Vitamin D deficiency, not otherwise specified Social History Tobacco Use [...] as of this encounter Progress Notes * Hawa Franco NP - 12/07/2019 11:59 PM CDT Given his complicated situation and your familiarity, I am forwarding this one to you. His Vit D is5: I have placed an order to start him on Ergo 55774 IU once a week x 8 weeks, then monthly. Hawa Franco NP * Hawa Franco NP - 12/07/2019 11:59 PM CDT Have patient begin ergocalciferol 63687 IU [place] mouth [place] 8 [place] [address] U ergocalciferol by mouth monthly: recheck Vit D in 6 months. Hawa Franco NP * Juana Castellon CNP - 12/07/2019 11:59 PM CDT Please call the patient and get a current weight and ask about any uremic symptoms. Repeat stat RFPtoday. If weight < 200# have him stop Lasix now and keep daily weight log for one week. Will call him with lab results. Thank you. documented in this encounter Plan of Treatment Not on file documented as of this encounter Procedures Procedure Name Priority Date/Time Associated Diagnosis Comments VITAMIN D 25 HYDROXY Routine 11/29/2019 12:00 PM CDT Vitamin D deficiency, not otherwise specified Acute kidney failure with lesion of tubular necrosis (HCC) CBC Routine 11/29/2019 12:00 PM CDT Iron deficiency anemia, not otherwise specified Acute kidney failure with lesion of tubular necrosis (HCC) PTH, INTACT Routine 11/29/2019 12:00 PM CDT Vitamin D deficiency, not otherwise specified Acute kidney failure with lesion of tubular necrosis (HCC) RENAL FUNCTION PANEL Routine 11/29/2019 12:00 PM CDT Acute kidney failure with lesion of tubular necrosis (HCC) documented in this encounter Results * (ABNORMAL) Vit D 25 hydroxy (11/29/2019 12:00 PM CDT) Vitamin D, 25-Hydroxy 5(L) 30 - 100 ng/mL [facility] Comment: Interpretive Data Chart: Deficient: 0 - 20 ng/mL Insufficient: 21 - 29 ng/mL Sufficient: 30 - 100 ng/mL Increased Risk of Hypercalciuria: >100 ng/ml Toxic: >150 ng/ml Performed at: [facility] [place] [address] Contract Admin: Yony Malik MD CLIA # [id number] Blood specimen (specimen) Venous blood / Unknown 11/29/2019 12:00 PM CDT 11/29/2019 9:59 PM CDT Juana [facility] LAB BLOOD ORDERABLES Final Re sult Performing Organization Address [facility] Co de Phone Number [facility] * (ABNORMAL) PTH, intact (11/29/2019 12:00 PM CDT) Pathologist [facility] Parathyroid Hormone, Intact 100(H) 15 - 65 pg/mL [facility] Comment: Test Performed by: [place] [address] Contract Admin: Wilmer Be M.D. Ph.D.; CLIA# [id number] Blood specimen (specimen) Venous blood / Unknown 11/29/2019 12:00 PM CDT 11/29/2019 9:59 PM CDT [facility] LAB BLOOD ORDERABLES Final Re sult [facility] * (ABNORMAL) CBC (11/29/2019 12:00 PM CDT) Pathologist [facility] WBC 11.3(H) 4.5 - 11.0 K/uL [facility] Red Blood Cells 2.97(L) 4.60 - 6.20 M/uL [facility] Hgb 8.6(L) 14.0 - 18.0 g/dL [facility] Hematocrit 26.2(L) 41.0 - 53.0 % [facility] MCV 88.2 84.0 - 103.0 fL [facility] MCH 29.0 27.0 - 34.0 pg [facility] MCHC 32.8 30.0 - 35.0 g/dL [facility] Platelets 277 140 - 440 K/uL [facility] MPV 9.9 8.9 - 12.8 fL [facility] RDW 13.8 11.0 - 14.5 % [facility] RDW-SD 44.6 37.0 - 54.0 fL [facility] Comment: Performed at: [facility] [place] [address] Contract Admin: Yony Malik MD CLIA # [id number] Blood specimen (specimen) Venous blood / Unknown 11/29/2019 12:00 PM CDT 11/29/2019 9:59 PM CDT [facility] Final Re sult [facility] * (ABNORMAL) Renal function panel (11/29/2019 12:00 PM CDT) Sodium 139 136 - 145 mmol/L [facility] Potassium 3.7 3.5 - 5.1 mmol/L [facility] Chloride 104 98 - 107 mmol/L [facility] Carbon Dioxide (CO2) 23 22 - 29 mmol/L [facility] Calcium 8.1(L) 8.6 - 10.0 mg/dL [facility] BUN 36(H) 6 - 20 mg/dL [facility] Creatinine 4.10(H) 0.67 - 1.17 mg/dL [facility] Glucose 261(H) 74 - 99 mg/dL [facility] Albumin 2.5(L) 3.5 - 5.2 g/dL [facility] Phosphorus, Serum 5.1(H) 2.5 - 4.5 mg/dL [facility] [...] please refer to the GFR result. eGFR 20(L) >=60 mL/min/1.7 3 sq meter [facility] Anion Gap 12 9 - 20 mmol/L [facility] Comment: TEST COMMENT: Fasting?->No Performed at: [facility] [address] [address] Contract Admin: Yony Malik MD CLIA # [id number] Blood specimen (specimen) Venous blood / Unknown 11/29/2019 12:00 PM CDT 11/29/2019 9:59 PM CDT [facility] LAB BLOOD ORDERABLES Final Re sult [facility] documented in this encounter Visit Diagnoses Diagnosis Acute kidney failure with lesion of tubular necrosis (HCC) Acute kidney failure with lesion of tubular necrosis Iron deficiency anemia, not otherwise specified Vitamin D deficiency, not otherwise specified documented in this encounter Care Teams Ammonia Technician Relationship Specialty Start Date End Date Savanah Garibay MD [address] [facility] [address] [place] [address] PCP - General Geriatric Medicine 10/19/18 documented as of this encounter
--- OUTSIDE RECORDS SUMMARY | 2024-11-12 17:49 | XMS_ITS | Encounter Summary ---
Author Organization [facility] Address [address] [place] [address] Phone Care Team Providers Care Petroleum Engineer Name Role Phone Savanah Garibay MD Primary Care Prov ider Reason for Visit * Reason Comments Med Refill Encounter Details Date Type Department Care Team (Late st Contact Info) Description 03/16/2021 Refill [facility] [address] [place] [address] Daisy Rojas MD [address] [place] [address] Social History Tobacco Use Types [...] on filedocumented in this encounter Care Teams Petroleum Engineer Relationship Specialty Start Date End Date Savanah Garibay MD [address] [place] [address] PCP - General Geriatric Medicine 10/19/18 documented as of this encounter
--- OUTSIDE RECORDS SUMMARY | 2024-11-12 17:49 | XMS_ITS | Encounter Summary ---
Author Organization [facility] Address [address] [place] [address] Phone Care Team Providers Care Primer Boxer Name Role Phone Savanah Garibay MD Primary Care Prov ider Reason for Visit * Reason Comments Med Refill Encounter Details Date Type Department Care Team (Late st Contact Info) Description 04/20/2021 Refill [facility] [address] [place] [address] Juana Castellon CNP Social History [...] on filedocumented in this encounter Care Teams Primer Boxer Relationship Specialty Start Date End Date Savanah Garibay MD [address] [place] [address] PCP - General Geriatric Medicine 10/19/18 documented as of this encounter
--- OUTSIDE RECORDS SUMMARY | 2024-11-12 17:49 | XMS_ITS | Encounter Summary ---
Author Organization [facility] Address [address] [place] [address] Phone Care Team Providers Care Survey Analyst Name Role Phone Savanah Garibay MD Primary Care Prov ider Encounter Details Date Type Department Care Team (Late st Contact Info) Description 01/04/2020 Orders Only [facility] [address] [place] [address] Juana Castellon CNP Stage 5 chronic kidney disease (HCC) Social [...] (HCC) documented in this encounter Care Teams Survey Analyst Relationship Specialty Start Date End Date Savanah Garibay MD [address] [place] [address] PCP - General Geriatric Medicine 10/19/18 documented as of this encounter
--- NOTE | 2024-11-12 17:51 | ECG_ITS ---
[facility] [place] Date: 2024-11-12 Pat Name: Jose Guadalupe Claudio Department: Room: Gender: Male Software Designer: : 1980 Requested By: Abhinav Lentz Order Number: [id number] Cristobal MD: Ursula Lyn M.D. Measurements Intervals [place] Rate: 81 P: 58 MT: 160 QRS: 38 QRSD: 108 T: 51 QT: 402 QTc: 468 Interpretive Statements SINUS RHYTHM POSSIBLE LEFT ATRIAL ENLARGEMENT [-0.1mV P-WAVE IN V1/V2] ANTEROSEPTAL MYOCARDIAL INFARCTION , OF INDETERMINATE AGE [40+ ms Q WAVE IN V1-V4] Compared to ECG 10/13/2024 13:34:34 T-wave abnormality no longer present Possible ischemia no longer present Myocardial infarct finding still present Electronically Signed On 11-13-2024 23:04:45 CDT by Ursula Lyn M.D. [email or web address]
[2024-11-12 18:14] LABS: Hematocrit 37.9 % (37-53); Hemoglobin 12.00 g/dL (11.27-16.99); Mean Corpuscular HGB Conc 31.7 g/dL (30-55); Mean Corpuscular Hemoglobin 28.1 pg (27-33); Mean Corpuscular Volume 88.8 fl (82-101); Nucleated Red Blood Cells % 0 %; Platelet Count 246 10^3/cmm (157-399); Red Blood Count 4.27 10^6/uL (3.85-5.65); White Blood Count 8.82 10^3/uL (3.29-11.43)
--- NOTE | 2024-11-12 18:18 | W.ED.GENADLT ---
HPI - General Adult General: Chief complaint: General Medical Stated complaint: BP High Time Seen by Provider: 11/12/24 18:05 History of Present Illness: Patient is a 44-year-old male with history of ESRD on HD TTS, makes some urine, CAD with LHC and PTCA 10/15/2024 with NSTEMI 10/13/24, HTN, DVT/clotting disorder, presented to ED with hypertension. Patient's blood pressure was elevated in the 200s and therefore he reported to the ED. He denies any other symptoms. In triage is 205/113. In the room it is 220/120. He had stopped his carvedilol, hydralazine due to request from cardiology when his blood pressure was low on admission. He is due to see his obstetrics nurse practitioner tomorrow at dialysis. He is currently only on losartan, and took a clonidine today. Patient stated he had a cold earlier today, however no shortness of breath. He states compliance to all of his medications. I did verify he is taking his apixaban, clopidogrel today. Associated symptoms: Deny chest pain, dyspnea, headache(s), nausea, rash, palpitations or vomiting Related Data Home Medications ?Medication ?Instructions ?Recorded ?Confirmed bumetanide 2 mg tablet 2 mg PO DAILY PRN dialysis days 06/09/24 10/29/24 only buspirone 5 mg tablet 5 mg PO TID 06/09/24 10/29/24 hydralazine 100 mg tablet 100 mg PO TID 06/09/24 10/29/24 Held on 10/29/24. Instructions: hypotension loperamide 2 mg capsule See Rx Instructions .Route .COMPLEX 06/09/24 10/29/24 megestrol 40 mg tablet 40 mg PO BID 06/09/24 10/29/24 mirtazapine 15 mg tablet 7.5 mg PO QPM 06/09/24 10/29/24 pantoprazole 40 mg tablet,delayed 40 mg PO DAILY 06/09/24 10/29/24 release ropinirole 0.5 mg tablet 0.5 mg PO QPM 06/09/24 10/29/24 sevelamer carbonate 800 mg tablet See Rx Instructions .Route .COMPLEX 06/09/24 10/29/24 venlafaxine 150 mg 150 mg PO DAILY 06/09/24 10/29/24 capsule,extended release 24 hr sodium bicarbonate 325 mg tablet 325 mg PO DAILY PRN Stomach ACID 09/19/24 10/29/24 vit B,C-folic ac 800 mcg-zinc 12.5 See Rx Instructions .Route .COMPLEX 10/13/24 10/29/24 mg-selen-D3 2,000 unit-vit E tablet (RenaPlex-D) clonidine HCl 0.3 mg tablet 0.3 mg PO TID PRN 10/29/24 10/29/24 Previous Rx's ?Medication ?Instructions ?Recorded clopidogrel 75 mg tablet 75 mg PO DAILY 30 days #30 tabs 08/22/24 apixaban 5 mg tablet (Eliquis) 5 mg PO BID@0900,2100 #60 tabs 10/18/24 nifedipine 30 mg tablet,extended 90 mg (3 x 30 mg) PO DAILY 30 days 10/18/24 release 24 hr #90 tabs Held on 10/29/24. Instructions: Dose Change carvedilol 25 mg tablet 25 mg PO BID #60 tabs 10/29/24 losartan 25 mg tablet 25 mg PO DAILY #30 tabs 10/29/24 Allergies Allergy/AdvReac Type Severity Reaction Status Date / Time No Known Allergies Allergy Verified 10/29/24 14:54 Review of Systems General: Reports: 10 or more systems reviewed and unremarkable except in HPI and below Const: Denies: fever(s) or chills Eyes: Denies: change in vision or blurry vision ENMT: Reports: nasal discharge; Denies: throat pain or mouth pain Card: Denies: chest pain or palpitations Resp: Denies: dyspnea or non-productive cough GI: Denies: abdominal pain, nausea or vomiting : Denies: flank pain or difficulty urinating Musc: Denies: neck pain, back pain or extremity pain Skin/Breast: Denies: rash or pruritus Neuro: Denies: headache(s) or numbness in extremities [place]/Lymph: Denies: easy bruising or easy bleeding All/Imm: Denies: urticaria or throat swelling PFSH ED PFSH: Medical History (Updated 11/12/24 @ 23:10 by Canelo Fox MD) Left ventricular systolic dysfunction (LVSD), NYHA class 3 Chronic hypertension ESRD (end stage renal disease) Diabetic peripheral neuropathy associated with type 2 diabetes mellitus Ingrowing toenail of left foot Hematoma of leg Non-pressure chronic ulcer of 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 Bilateral pes planus Medical non-compliance Hypertensive urgency Closed right trimalleolar fracture Restless leg syndrome Peritonitis CAD (coronary artery disease) Depression End-stage renal disease on peritoneal dialysis Anemia Surgical History Hx of CABG Social History Smoking and tobacco/nicotine status: current every day tobacco/nicotine user (Cannabis/ Quit cigarettes 5 years ago) Alcohol intake: never Substance/Drug Use: current Other substance/drug use details: Medical marijuana Physical Exam Const: COMMON NORMALS: no acute distress, average body habitus, patient oriented x3, no limitations, healthy appearing, alert and well nourished HENMT: COMMON NORMALS: normocephalic and atraumatic HEAD & SCALP: normocephalic and atraumatic Chest: COMMONS NORMALS: normal inspection of the chest and normal palpation of entire chest wall Resp: COMMON NORMALS: normal respiratory effort, No retractions and clear to auscultation bilaterally AUSCULTATION: clear to auscultation bilaterally Cardio: COMMON NORMALS: regular rate and regular rhythm RATE: regular rate RHYTHM: regular rhythm GI: COMMON NORMALS: Normal to inspection, nondistended, normoactive bowel sounds present, Soft to palpation and non-tender PALPATION: Yes Soft to palpation : COMMON NORMALS: Yes no CVA tenderness BLADDER/KIDNEY EXAM: Yes no CVA tenderness Back/Pelvis: COMMON NORMALS: no CVA tenderness Extremity: COMMON NORMALS: normal to inspection, full ROM and capillary refill normal Neuro: COMMON NORMALS: patient oriented x3 SENSORIUM/ORIENTATION: Yes alert Course Reevaluation(s): Reevaluation #1: No issues, no changes. K is 5.6, no peaked T's on EKG. Will give insulin, glucose, Kayexalate. Dialysis is tomorrow. Reevaluation #2: Patient had worsening shortness of breath. First physical examination was clear, now he has crackles posterior one half distally. Ordered chest x-ray, Bumex. Suspect flash pulmonary edema based on blood pressure. O2 sats 80s on 15 L high flow. Will check ABG Reevaluation #3: Doing better Additional Reevaluation(s): Patient started having more tachypnea and oxygen saturation decreasing, placed on BiPAP as per hospitalist. Hospitalist has now assumed care. Consultations: Consultation #1: Dr. Fox will eval patient for icu. Requested nephrology called for urgent dialysis. Consultation #2: Nephrology called back, accepted c/s for urgent hd Vital Signs: Vital signs: Vital Signs Temperature 98.6 F 11/13/24 01:23 Pulse Rate 75 11/13/24 01:23 Respiratory Rate 15 11/13/24 01:23 Blood Pressure 207/125 11/13/24 01:23 Pulse Oximetry 100 11/13/24 01:18 Oxygen Delivery Me thod BiPAP 11/13/24 01:18 Oxygen Flow Rate 45 11/12/24 21:11 Fraction of Inspir ed Oxygen 70 11/13/24 00:52 MDM - General Adult Medical Decision Making Patient reports to ED with hypertension without symptoms. States he is no longer on nifedipine, carvedilol, hydralazine. He did take a clonidine 0.3, and his losartan 25 mg today. Hydralazine will be given x 1. Routine labs to ensure they are at baseline. Physical examination did not offer any concerns. Patient is going to follow-up with nephrology tomorrow and contact cardiology if he needs to. He has hydralazine, nifedipine, carvedilol at home. I did encourage him to restart carvedilol however to discuss with nephrology/cardiology. Patient states understanding. After waiting laboratory data, patient became short of breath, oxygen saturation in the 80s. He is compliant to his Eliquis. He stated he had some upper respiratory symptoms earlier today however had not been having any until more recent after he took a nap in the ED while awaiting labs. ABG shows acid-base stable with respiratory failure with hypoxia, and hypoxemia. PO2 was 52. Patient was switched to high flow heated system. Will call hospitalist for admission. Bumex given with concern initially of flash pulmonary edema, although chest x-ray does not appear to have consistent findings. Lung sounds did have crackles posterior one half distally on second evaluation. He had difficulty speaking full sentences. He does make some urine he states. Chest x-ray did not have acute CHF findings and previous infiltrate was improved. Still suspect there is flash pulmonary edema given the clinical change in breath sounds. Discussed the case with Dr. Fox that recommends urgent dialysis. I called nephrology on-call. Initially they were not answering, however was notified to add hemodialysis order in the chart, for on-call nurse. Nephrology has now responded and is happy to take a consult. Troponin was also elevated during his evaluation, however his 301 troponin baseline, is identical to previous troponin when he was not having NSTEMI. This did decrease on the second evaluation. I do suspect a supply/demand mismatch on his elevated troponin. This is most likely secondary to his uncontrolled hypertension. Called by lab. COVID is positive. Will give dexamethasone and remdesivir Medical Records I reviewed the patient's medical records. Lab Data I reviewed the patient's lab results. 11/12/24 18:01 11/12/24 18:01 Radiology Impressions Chest X-Ray 11/12/24 19:32 IMPRESSION: Improvement in appearance of patchy multifocal opacities suggesting improvement or resolution of prior pneumonia. Chest CTA 11/12/24 21:47 IMPRESSION: No definitive radiographic evidence of significant pulmonary embolism. Aortic coronary atherosclerosis. Scattered multifocal patchy opacities throughout the bilateral lungs, [id number]-dzvp-left, nonspecific although concerning for pneumonia or edema with other etiologies not excluded. Dependent changes, likely atelectasis though superimposed airspace disease from other etiologies not excluded. Laboratory Results WBC 8.82 10^3/uL (3.29-11.43) 11/12/24 18: RBC 4.27 10^6/uL (3.85-5.65) 11/12/24 18: Hgb 12.00 g/dL (11.27-16.99) 11/12/24 18: Hct 37.9 % (37-53) 11/12/24 18: MCV 88.8 fl (82-101) 11/12/24 18: MCH 28.1 pg (27-33) 11/12/24 18: MCHC 31.7 g/dL (30-55) 11/12/24 18:01 RDW 16.0 % (12.1-15.1) H 11/12/24 18:01 Plt Count 246 10^3/cmm (157-399) 11/12/24 18: MPV 9.3 fL (7.4-10.4) 11/12/24 18:01 Neut % (Auto) 82.1 % 11/12/24 18:01 Lymph % (Auto) 6.2 % 11/12/24 18:01 Keith % (Auto) 5.6 % 11/12/24 18:01 Eos % (Auto) 4.9 % 11/12/24 18:01 Baso % (Auto) 0.9 % 11/12/24 18:01 Neut # (Auto) 7.24 10^3/uL (1.8-7.7) 11/12/24 18:01 Lymph # (Auto) 0.6 10^3/uL (0.8-4.8) L 11/12/24 18:01 Keith # (Auto) 0.5 10^3/uL (0.2-0.9) 11/12/24 18:01 Eos # (Auto) 0.4 10^3/uL (0.0-0.8) 11/12/24 18:01 Baso # (Auto) 0.1 10^3/uL (0.0-0.1) 11/12/24 18:01 Nucleated RBC % (auto) 0 % 11/12/24 18:01 Nucleated RBCs # 0.0 /100WBC 11/12/24 18:01 Specimen Type Arterial 11/12/24 19:38 Sample Site Brachial, right 11/12/24 19:38 ABG pH 7.47 (7.35-7.45) H 11/12/24 19:38 ABG pCO2 33.1 mmHg (35-45) L 11/12/24 19:38 ABG pO2 52.0 mmHg (80.0-100.0) L 11/12/24 19:38 ABG HCO3 23.8 mmol/L (22-26) 11/12/24 19:38 ABG Base Excess 0.5 mmol/L (-2.0-2.0) 11/12/24 19:38 Otoniel Test N/a 11/12/24 19:38 Hematocrit 36.7 % (42-52) L 11/12/24 19:38 O2 Delivery Device Nrb 11/12/24 19:38 O2 Liters/Min 15.0 % 11/12/24 19:38 Retrimmer ID [email or web address] 11/12/24 19:38 Sodium 137 mmol/L (136-145) 11/12/24 18:01 Potassium 5.6 mmol/L (3.5-5.1) H 11/12/24 18:01 Chloride 96 mmol/L (98-107) L 11/12/24 18:01 Carbon Dioxide 24 mmol/L (22-29) 11/12/24 18:01 Anion Gap 22.6 (5-19) H 11/12/24 18:01 BUN 51 mg/dL (6-20) H 11/12/24 18:01 Creatinine 5.9 mg/dL (0.7-1.2) H* 11/12/24 18:01 GFR Calculation 10.4 mL/min (90-130) L 11/12/24 18:01 Glucose 145 mg/dL (65-115) H 11/12/24 18:01 POC Glucose 228 mg/dL (70-110) H 11/12/24 20:11 Calculated Osmolality 300 mOsm/kg (285-295) H 11/12/24 18:01 Calcium 9.7 mg/dL (8.5-10.5) 11/12/24 18:01 Total Bilirubin 0.5 mg/dL (0.15-1.2) 11/12/24 18:01 AST 16 U/L (0-40) 11/12/24 18:01 ALT 11 U/L (0-41) 11/12/24 18:01 Alkaline Phosphatase 77 U/L (40-130) 11/12/24 18:01 Troponin T Baseline 301 ng/L (0-15) H* 11/12/24 18:01 Troponin T 120 Minute 264.8 ng/L (0-15) H 11/12/24 19:50 Delta Troponin T -36.2 ABS# (0-10) L 11/12/24 19:50 C-Reactive Protein 26.3 mg/L (0.0-4.9) H 11/12/24 18:01 NT-Pro-B Natriuret Pep > 29784 pg/mL (0-125) H 11/12/24 18:01 Total Protein 8.3 g/dL (6.6-8.7) 11/12/24 18:01 Albumin 3.8 g/dL (3.5-5.2) 11/12/24 18:01 Globulin 4.5 g/dL (1.3-4.6) 11/12/24 18:01 Lipase 535 U/L (13-60) H 11/12/24 18:01 Procalcitonin 0.41 ng/mL (0-0.5) 11/12/24 18:01 Influenza A (PCR) Negative (Negative) 11/12/24 21:16 Influenza Type B (PCR) Negative (Negative) 11/12/24 21:16 RSV (PCR) Negative (Negative) 11/12/24 21:16 SARS-CoV-2 (PCR) Positive (Negative) A 11/12/24 21:16 All radiology interpretation(s) finalized by discharge EKG Data EKG 1: Interpretation: Sinus rhythm, normal axis, no peaked T waves, left atrial enlargement (biphasic V1 P wave). No change from previous Computer generated interpretation: Chest X-Ray 11/12/24 19:32 IMPRESSION: Improvement in appearance of patchy multifocal opacities suggesting improvement or resolution of prior pneumonia. Chest CTA 11/12/24 21:47 IMPRESSION: No definitive radiographic evidence of significant pulmonary embolism. Aortic coronary atherosclerosis. Scattered multifocal patchy opacities throughout the bilateral lungs, [id number]-[id number]-left, nonspecific although concerning for pneumonia or edema with other etiologies not excluded. Dependent changes, likely atelectasis though superimposed airspace disease from other etiologies not excluded. EKG 2: Interpretation: No change from first EKG. Computer generated interpretation: Chest X-Ray 11/12/24 19:32 IMPRESSION: Improvement in appearance of patchy multifocal opacities suggesting improvement or resolution of prior pneumonia. Chest CTA 11/12/24 21:47 IMPRESSION: No definitive radiographic evidence of significant pulmonary embolism. Aortic coronary atherosclerosis. Scattered multifocal patchy opacities throughout the bilateral lungs, [id number]-[id number]-kjkt-left, nonspecific although concerning for pneumonia or edema with other etiologies not excluded. Dependent changes, likely atelectasis though superimposed airspace disease from other etiologies not excluded. Discharge Plan Discharge Patient Disposition: Admitted As Inpatient Admit Provider: Canelo Fox Clinical Impression: Pulmonary edema due to fluid overload, Acute hypoxemic respiratory failure, ESRD (end stage renal disease) on dialysis, Acute hyperkalemia, Elevated troponin level not due to acute coronary syndrome, Elevated lipase Condition: Stable Coding Level of Care Code ED Chronic Condition Nurse for Chg Fwpricila
[2024-11-12 18:26] LABS: Alanine Aminotransferase 11 U/L (0-41); Albumin Level 3.8 g/dL (3.5-5.2); Alkaline Phosphatase 77 U/L (40-130); Anion Gap 22.6 (5-19); Aspartate Amino Transferase 16 U/L (0-40); Blood Urea Nitrogen 51 mg/dL (6-20); Calcium 9.7 mg/dL (8.5-10.5); Carbon Dioxide 24 mmol/L (22-29); Chloride 96 mmol/L (98-107); Creatinine Clr Calc Pharmacy 16.2269; Globulin 4.5 g/dL (1.3-4.6); Glucose 145 mg/dL (65-115); Osmolality Calculated 300 mOsm/kg (285-295); Potassium 5.6 mmol/L (3.5-5.1); Sodium 137 mmol/L (136-145); Total Protein 8.3 g/dL (6.6-8.7)
[2024-11-12 18:34] LABS: Lipase 535 U/L (13-60)
[2024-11-12 19:13] LABS: Troponin(5th) Baseline 301 ng/L (0-15)
--- NOTE | 2024-11-12 19:32 | XRR_ITS ---
PROCEDURE INFORMATION: Exam: XR Chest Exam date and time: 11/12/2024 7:36 PM Age: 44 years old Clinical indication: Shortness of breath; Prior surgery; Surgery date: 6+ months; Surgery type: Open heart dialysis cath; PT has life vest on; Additional info: Short of breath TECHNIQUE: Imaging protocol: Radiologic exam of the chest. Views: 1 view. COMPARISON: CR (CHEST, ) 10/13/2024 12:36 PM FINDINGS: Tubes, catheters, and devices: Sternotomy wires and postsurgical clips. Right chest tunneled line. Multiple leads and wires obscure underlying detail. Lungs: Probable improvement in previously visualized patchy pulmonary opacities. Pleural spaces: Unremarkable. No pleural effusion. No pneumothorax. Heart/Mediastinum: Unremarkable. No cardiomegaly. Bones/joints: Probable mild degenerative changes of AC joints. Deformity of the left proximal humerus compatible with prior fracture. Otherwise Unremarkable. XR/XR chest 1V portable [id number] IMPRESSION: Improvement in appearance of patchy multifocal opacities suggesting improvement or resolution of prior pneumonia.
[2024-11-12 19:49] LABS: ABG PCO2 33.1 mmHg (35-45); ABG PH Result 7.47 (7.35-7.45); Arterial Blood Gas Hematocrit 36.7 % (42-52); Blood Gas LPM 15.0 %; Blood Gas Sample Site Brachial, right; Blood Gas Sample Type Arterial; HCO3 ABG 23.8 mmol/L (22-26); PO2 ABG 52.0 mmHg (80.0-100.0)
--- NOTE | 2024-11-12 19:56 | ECG_ITS ---
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 Measurements Intervals Independence Rate: 92 P: 59 UT: 154 QRS: 7 QRSD: 104 T: 50 QT: 390 QTc: 483 Interpretive Statements SINUS RHYTHM POSSIBLE LEFT ATRIAL ENLARGEMENT [-0.1mV P-WAVE IN V1/V2] ANTEROSEPTAL MYOCARDIAL INFARCTION , OF INDETERMINATE AGE [40+ ms Q WAVE IN V1-V4] Compared to ECG 11/12/2024 17:51:55 No significant changes Electronically Signed On 11-14-2024 09:28:57 CDT by Ursula Lyn M.D. [email or web address]
[2024-11-12] MEDS: bumetanide 0.25 mg/mL SDV 10 mL 2 MG IVP (20:01)
[2024-11-12] MEDS: insulin regular-human 100 units/1 mL 10 UNIT IVP (20:07)
[2024-11-12 20:19] LABS: Troponin 5 2HR 264.8 ng/L (0-15); Troponin 5 2HR Delta -36.2 ABS# (0-10)
--- NOTE | 2024-11-12 21:47 | CTR_ITS ---
PROCEDURE INFORMATION: Exam: CTA Chest With Contrast Exam date and time: 11/12/2024 10:10 PM Age: 44 years old Clinical indication: Dyspnea; Prior surgery; Surgery date: 6+ months; Surgery type: Stent, open heart, port; Additional info: Resp failure TECHNIQUE: Imaging protocol: Computed tomographic angiography of the chest with contrast. Exam focused on the arteries. 3D rendering (Not supervised by radiologist): MIP and/or 3D reconstructed images were created by the technologist. Radiation optimization: All CT scans at this facility use at least one of these dose optimization techniques: automated exposure control; mA and/or kV adjustment per patient size (includes targeted exams where dose is matched to clinical indication); or iterative reconstruction. Contrast material: OMBNI 350; Contrast volume: 68 ml; Contrast route: INTRAVENOUS (IV); COMPARISON: CT angio chest PE protcl [id number] 10/13/2024 12:31 PM RADIATION DOSE METRICS: Total DLP (mGy-cm): 372.17 FINDINGS: Pulmonary arteries: Normal. No pulmonary emboli. Aorta: Aortic and coronary atherosclerosis. Lungs: Scattered multifocal patchy opacities throughout the bilateral lungs, [id number]-[id number]-left, nonspecific although concerning for pneumonia or edema with other etiologies not excluded. Dependent changes, likely atelectasis though superimposed airspace disease from other etiologies not excluded. Pleural spaces: Small bilateral pleural effusions. Heart: Post cardiac surgery residuals. Otherwise Unremarkable. No cardiomegaly. No pericardial effusion. Lymph nodes: Shotty mediastinal adenopathy. Bones/joints: Unremarkable. No acute fracture. Soft tissues: Probable gynecomastia. CT/CT angio chest PE protcl [id number] IMPRESSION: No definitive radiographic evidence of significant pulmonary embolism. Aortic coronary atherosclerosis. Scattered multifocal patchy opacities throughout the bilateral lungs, [id number]-[id number]-left, nonspecific although concerning for pneumonia or edema with other etiologies not excluded. Dependent changes, likely atelectasis though superimposed airspace disease from other etiologies not excluded.
--- NOTE | 2024-11-12 21:53 | PM.CONSULT ---
Providers/Reason For Consult Consulting Physician/Specialty*: Donavan Flanagan MD/tele-nephrology Reason for Consult*: ESRD care Requesting Physician: Dr. Canelo العراقي Attending Physician: Dr Canelo Fox Primary Care Provider: Yaniv Moe MD History of Present Illness History of Present Illness Jose Guadalupe Claudio is a 44 year old male history of end-stage renal disease on dialysis Tuesday, CAD status post CABG recent non-ST elevation AL, severe LV dysfunction, recent pneumonia recent angiogram in October 2024 with PCI of ostial diagonal branch. Patient also has history of hypertension diabetes. Patient is here tonight with headaches hypertension renal was called as he is hyperkalemic hypotensive and short of breath. Review of Systems Narrative: Headaches, shortness of breath, hypertension patient is due for dialysis tomorrow. Positive chest pressure. However states chest pressure has been the same for 2 weeks no nausea no vomiting no diarrhea. Positive headaches Medications/Allergies Home Medications ?Medication ?Instructions ?Recorded ?Confirmed ?Last Taken ?Type bumetanide 2 mg tablet 2 mg PO DAILY PRN dialysis days 06/09/24 10/29/24 08/16/24 History only buspirone 5 mg tablet 5 mg PO TID 06/09/24 10/29/24 10/13/24 07:00 History hydralazine 100 mg tablet 100 mg PO TID 06/09/24 10/29/24 10/13/24 07:00 History Held on 10/29/24. Instructions: hypotension loperamide 2 mg capsule See Rx Instructions .Route .COMPLEX 06/09/24 10/29/24 10/13/24 08:00 History megestrol 40 mg tablet 40 mg PO BID 06/09/24 10/29/24 10/13/24 History mirtazapine 15 mg tablet 7.5 mg PO QPM 06/09/24 10/29/24 10/12/24 19:00 History pantoprazole 40 mg tablet,delayed 40 mg PO DAILY 06/09/24 10/29/24 10/13/24 History release ropinirole 0.5 mg tablet 0.5 mg PO QPM 06/09/24 10/29/24 10/12/24 19:00 History sevelamer carbonate 800 mg tablet See Rx Instructions .Route .COMPLEX 0310/29/24 10/13/24 08:00 History venlafaxine 150 mg 150 mg PO DAILY 06/09/24 10/29/24 10/13/24 History capsule,extended release 24 hr clopidogrel 75 mg tablet 75 mg PO DAILY 30 days #30 tabs 08/22/24 10/29/24 10/13/24 Rx sodium bicarbonate 325 mg tablet 325 mg PO DAILY PRN Stomach ACID 09/19/24 10/29/24 Unknown History vit B,C-folic ac 800 mcg-zinc 12.5 See Rx Instructions .Route .COMPLEX 10/13/24 10/29/24 Unknown History mg-selen-D3 2,000 unit-vit E tablet (RenaPlex-D) apixaban 5 mg tablet (Eliquis) 5 mg PO BID@0900,2100 #60 tabs 10/18/24 10/29/24 Unknown Rx nifedipine 30 mg tablet,extended 90 mg (3 x 30 mg) PO DAILY 30 days 10/18/24 10/29/24 Unknown Rx release 24 hr #90 tabs Held on 10/29/24. Instructions: Dose Change carvedilol 25 mg tablet 25 mg PO BID #60 tabs 10/29/24 10/29/24 Unknown Rx clonidine HCl 0.3 mg tablet 0.3 mg PO TID PRN 10/29/24 10/29/24 Unknown History losartan 25 mg tablet 25 mg PO DAILY #30 tabs 10/29/24 10/29/24 Unknown Rx Allergies Allergy/AdvReac Type Severity Reaction Status Date / Time No Known Allergies Allergy Verified 10/29/24 14:54 PFSH Acute PFSH: Medical History (Updated 11/12/24 @ 21:50 by AJIT Mcpherson) Left ventricular systolic dysfunction (LVSD), NYHA class 3 Chronic hypertension ESRD (end stage renal disease) Diabetic peripheral neuropathy associated with type 2 diabetes mellitus Ingrowing toenail of left foot Hematoma of leg Non-pressure chronic ulcer of 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 Bilateral pes planus Medical non-compliance Hypertensive urgency Closed right trimalleolar fracture Restless leg syndrome Peritonitis CAD (coronary artery disease) Depression End-stage renal disease on peritoneal dialysis Anemia Surgical History Hx of CABG Social History Smoking and tobacco/nicotine status: current every day tobacco/nicotine user (Cannabis/ Quit cigarettes 5 years ago) Alcohol intake: never Substance/Drug Use: current Other substance/drug use details: Medical marijuana Vitals/I&O/Wt Last Vital Signs Temp 98.2 F 11/12/24 17:48 Pulse 112 H 11/12/24 21:40 Resp 24 H 11/12/24 21:11 BP 205/113 11/12/24 17:48 Pulse Ox 98 11/12/24 21:40 O2 Flow Rate 45 11/12/24 21:11 FiO2 70 11/12/24 21:40 Weight last 48 hrs Weight 65 kg Physical Exam Narrative: Uncomfortable on BiPAP blood pressure elevated. HEENT normocephalic atraumatic. Neck is supple lungs have crackles Heart is regular with systolic murmur. Abdomen soft positive bowel sounds. Extremities 1+ edema. Dialysis access right IJ. Neuro awake alert oriented x 3. Positive distal neuropathy Data 11/12/24 18:01 11/12/24 18:01 A&P Assessment and plan 1. ESRD (end stage renal disease) on dialysis: 44-year-old man coronary artery disease status post CABG and stents, hypertension diabetes ESRD. Patient recent stent last month. Patient now here with hypertensive urgency and volume overload shortness of breath. 1. Will dialyze the patient tonight for hyperkalemia to see if we can remove fluids. 2. Please call cardiology to see the patient. 3. Hypertension after we remove fluids please attempt to put back on outpatient medications and we will work with cardiology to optimize his regimen. 4. TSH 10.43 last month. Would recheck and ensure he is treated The patient was seen and examined using audiovisual equipment with the aid of a nurse. The patient consents to hemodialysis and to telehealth. Case discussed in detail with Dr. Canelo Fox. Plan: Dialysis tonight on BiPAP. PDMP PDMP Reviewed: Not Reviewed Consult Attestations Medical Necessity Statement: Hypertensive urgency, volume overload, known coronary artery disease and ESRD Time Spent in Patient Care: Greater than 35 minutes (>than 50% of time spent in counselling and/or direct pt care on unit). Coding Level of Care Code Acute Code for Chg Fwd Diagnoses ESRD (end stage renal disease) on dialysis N18.6; Z99.2
[2024-11-12 22:06] LABS: Respiratory Syncytial Virus Ce NEGATIVE (Negative)
[2024-11-12 22:08] LABS: SARS-CoV-2 PCR Positive (Negative)
[2024-11-12] MEDS: iohexol 350 mg/mL 500 mL Btl (per mL) IV (22:13)
--- NOTE | 2024-11-12 22:20 | USCV_ITS ---
Jose Guadalupe Claudio Age: 44 Gender: M : 1980 Exam Date: 11/12/2024 23:07 Ordering Phys: Canelo Fox MD Technologist: JALEESA [place] [facility] [place]: nstemi, end-stage renal dz, CAD s/p PCI,, hx prior nstemi, HTN, previous DVT BP: 201 / 117 HR: 85 Rhythm: Sinus Technical Quality: Adequate MEASUREMENTS (Male / Female) Normal Values 2D ECHO LV Diastolic Diameter PLAX 4.4 cm 4.2 - 5.9 / 3.9 - 5.3 cm IVS Diastolic Thickness 1.3 cm 0.6 - 1.0 / 0.6 - 0.9 cm IVS Systolic Thickness 1.2 cm LVPW Diastolic Thickness 1.4 cm 0.6 - 1.0 / 0.6 - 0.9 cm LVPW Systolic Thickness 1.1 cm LVOT Diameter 1.9 cm LV Ejection Fraction 2D Teich 30.8 % LV Ejection Fraction MOD 4C 36.0 % LV Ejection Fraction MOD 2C 38.2 % LV Ejection Fraction 2C AL 39.0 % LA Diameter 5.2 cm Aorta at Sinotubular Diameter 2.6 cm IVC Diameter 1.6 cm M-MODE LA Ao Ratio MM 1.8 AV Cusp Separation MM 1.7 cm DOPPLER AV Peak Velocity 162.0 cm/s LVOT Peak Velocity 119.0 cm/s AV Area Cont Eq vti 2.3 cm squared AV Area Cont Eq pk 2.1 cm squared MV Peak Velocity 144.0 cm/s MV Area PHT 5.2 cm squared Mitral E to A Ratio 1.7 TV Peak Velocity 246.0 cm/s TR Peak Velocity 249.0 cm/s TR Peak Gradient 24.8 mmHg TV Peak E Velocity 53.0 cm/s PV Peak Velocity 105.0 cm/s FINDINGS Left Ventricle Diffuse hypokinesia of the left ventricular ejection fraction of 36%. Mildly dilated LV cavity Right Ventricle Normal right ventricular size. Mildly decreased right ventricular systolic function. Right Atrium Mildly increased right atrial size. Left Atrium Moderately increased left atrial size. Mitral Valve Mild mitral annular calcification. Mild mitral valve regurgitation. Aortic Valve Thickened aortic valve. Tricuspid Valve Trace to mild tricuspid valve regurgitation. Estimated pulmonary artery peak systolic pressure within normal limits Pulmonic Valve Mild to moderate pulmonary valve regurgitation. Pericardium No pericardial effusion. Aorta Normal aortic annulus size. IVC Normal inferior vena cava. CONCLUSIONS Diffuse hypokinesia of the left ventricular ejection fraction of 36%. Mildly dilated LV cavity. Normal right ventricular size. Mildly decreased right ventricular systolic function. Mildly increased right atrial size. Moderately increased left atrial size. Mild mitral annular calcification. Mild mitral valve regurgitation. Thickened aortic valve. Trace to mild tricuspid valve regurgitation. Mild to moderate pulmonary valve regurgitation. Estimated pulmonary artery peak systolic pressure within normal limits., This could be an underestimation because of the poor Doppler signals. Mild to moderate pulmonary valve regurgitation. There is no pericardial effusion. There are no intracardiac masses. Compared to the study from 10/14/2024, there may not be a significant change Dr Ursula Lyn MD [facility] (Electronically Signed) Final Date: 12 November 2024 23:56 S
--- NOTE | 2024-11-12 22:38 | PM.HP ---
Providers/Chief Complaint Admitting Physician: Canelo Fox MD Primary Care Provider: Yaniv Moe MD Chief Complaint: BP High History of Present Illness Jose Guadalupe Claudio is a 44 year old male with a past medical history of CAD, recent history of stenting, history of CABG, history of hyper per glycemia, end-stage renal disease on dialysis, history of systolic CHF EF 35%, history of pulmonary embolism on Eliquis, who presents to [facility] due to concerns for elevated blood pressure. According to patient, his systolic blood pressures in the high 200s, and he felt short of breath, so he presented to emergency room, no chest pain on evaluation. According to patient, recently his carvedilol, hydralazine were stopped due to concerns for low blood pressure. He did receive dialysis on Tuesday. In the emergency room patient's blood pressures were 205/113, he has received 100 mg of p.o. hydralazine, due to concern for fluid overload and shortness of breath he was given 2 mg IV push Bumex, initially when he had arrived he was placed on nasal cannula, does not use oxygen at home, then subsequently was placed on heated high flow up to 100%, during my examination, he is on 70% heated high flow, he is in moderate respiratory failure with nasal flaring, intercostal retractions, suprasternal retractions, nasal flaring tachypnea, tachycardia, short breath after a few words, denies any fevers, no chills, no cough, no chest pain, does report shortness of breath, he is adamant that he is use all his blood thinners as prescribed, he did receive dialysis on Tuesday, discussed with respiratory therapy to place patient on BiPAP, discussed goals of care with Jose Guadalupe, he confirms that he is a full code he wants everything to be done, discussed my concern for acute flash pulmonary edema as a consequence of the patient's hypertensive emergency, will place him on BiPAP urgently consult nephrology for urgent dialysis due to my concerns for acute fluid overload. However he was recently hospitalized with concern for pneumonia certainly there is a concerns for possible healthcare associate pneumonia I will place him on broad-spectrum antibiotic therapy for concerns for healthcare associated pneumonia and sepsis, his COVID-19 is currently pending, order placed for CT angiogram of the chest, he was also found to have troponins over 301, no acute ST-T wave changes placed patient on heparin drip, as patient's blood pressures remain in the systolics of 200s, diastolic 117 with acute flash pulm edema, will place him on nitroglycerin drip, plans to move to the ICU. Spoke to nephrology for urgent dialysis. Spoke to cardiology about recent stent placement elevated troponins, patient's respiratory failure. Checked up on patient in the urgency room, he is more comfortable on BiPAP. Patient's COVID-19 came back positive, placed in isolation, we will start patient on remdesivir and Decadron Review of Systems Const: Reports: fatigue; Denies: fever(s) or chills Card: Denies: chest pain Resp: Reports: dyspnea GI: Denies: abdominal pain : Denies: flank pain Medications/Allergies Home Medications ?Medication ?Instructions ?Recorded ?Confirmed ?Last Taken ?Type bumetanide 2 mg tablet 2 mg PO DAILY PRN dialysis days 06/09/24 10/29/24 08/16/24 History only buspirone 5 mg tablet 5 mg PO TID 06/09/24 10/29/24 10/13/24 07:00 History hydralazine 100 mg tablet 100 mg PO TID 06/09/24 10/29/24 10/13/24 07:00 History Held on 10/29/24. Instructions: hypotension loperamide 2 mg capsule See Rx Instructions .Route .COMPLEX 06/09/24 10/29/24 10/13/24 08:00 History megestrol 40 mg tablet 40 mg PO BID 06/09/24 10/29/24 10/13/24 History mirtazapine 15 mg tablet 7.5 mg PO QPM 06/09/24 10/29/24 10/12/24 19:00 History pantoprazole 40 mg tablet,delayed 40 mg PO DAILY 06/09/24 10/29/24 10/13/24 History release ropinirole 0.5 mg tablet 0.5 mg PO QPM 06/09/24 10/29/24 10/12/24 19:00 History sevelamer carbonate 800 mg tablet See Rx Instructions .Route .COMPLEX 06/09/24 10/29/24 10/13/24 08:00 History venlafaxine 150 mg 150 mg PO DAILY 06/09/24 10/29/2425 History capsule,extended release 24 hr clopidogrel 75 mg tablet 75 mg PO DAILY 30 days #30 tabs 08/22/24 10/29/24 10/13/24 Rx sodium bicarbonate 325 mg tablet 325 mg PO DAILY PRN Stomach ACID 09/19/24 10/29/24 Unknown History vit B,C-folic ac 800 mcg-zinc 12.5 See Rx Instructions .Route .COMPLEX 10/13/24 10/29/24 Unknown History mg-selen-D3 2,000 unit-vit E tablet (RenaPlex-D) apixaban 5 mg tablet (Eliquis) 5 mg PO BID@0900,2100 #60 tabs 10/18/24 10/29/24 Unknown Rx nifedipine 30 mg tablet,extended 90 mg (3 x 30 mg) PO DAILY 30 days 10/18/24 10/29/24 Unknown Rx release 24 hr #90 tabs Held on 10/29/24. Instructions: Dose Change carvedilol 25 mg tablet 25 mg PO BID #60 tabs 10/29/24 10/29/24 Unknown Rx clonidine HCl 0.3 mg tablet 0.3 mg PO TID PRN 10/29/24 10/29/24 Unknown History losartan 25 mg tablet 25 mg PO DAILY #30 tabs 10/29/24 10/29/24 Unknown Rx Allergies Allergy/AdvReac Type Severity Reaction Status Date / Time No Known Allergies Allergy Verified 10/29/24 14:54 PFSH Acute PFSH: Medical History Left ventricular systolic dysfunction (LVSD), NYHA class 3 Chronic hypertension ESRD (end stage renal disease) Diabetic peripheral neuropathy associated with type 2 diabetes mellitus Ingrowing toenail of left foot Hematoma of leg Non-pressure chronic ulcer of 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 Bilateral pes planus Medical non-compliance Hypertensive urgency Closed right trimalleolar fracture Restless leg syndrome Peritonitis CAD (coronary artery disease) Depression End-stage renal disease on peritoneal dialysis Anemia Surgical History Hx of CABG Social History Smoking and tobacco/nicotine status: current every day tobacco/nicotine user (Cannabis/ Quit cigarettes 5 years ago) Alcohol intake: never Substance/Drug Use: current Other substance/drug use details: Medical marijuana Vitals/I&O/Wt Last Vital Signs Temp 98.2 F 11/12/24 17:48 Pulse 102 H 11/12/24 22:00 Resp 28 H 11/12/24 22:00 BP 207/117 11/12/24 22:00 Pulse Ox 100 11/12/24 22:00 O2 Del Method BiPAP 11/12/24 22:00 O2 Flow Rate 45 11/12/24 21:11 FiO2 70 11/12/24 22:00 Weight last 48 hrs Weight 65 kg Physical Exam Const: COMMON NORMALS: patient oriented x3 Eye: COMMON NORMALS: Equal, round and reactive pupils present and EOMs intact bilaterally Resp: OTHER: Suprasternal retractions, intercostal retractions, nasal flaring, tachypnea, respiratory 28, tachycardia heart rates in the 110s, sinus tachycardia, short of breath after a few words Cardio: COMMON NORMALS: regular rhythm, S1 normal heart sound present and S2 normal heart sound present RATE: tachycardic RHYTHM: abnormal rhythm irregularly irregular HEART SOUNDS: S1 normal heart sound present and S2 normal heart sound present GI: COMMON NORMALS: Normal to inspection, nondistended, normoactive bowel sounds present, Soft to palpation and non-tender Extremity: COMMON NORMALS: no calf tenderness and no pedal edema Neuro: COMMON NORMALS: patient oriented x3, CN's II-XII intact bilaterally and moves all extremities Data 11/12/24 18:01 11/12/24 18:01 A&P Assessment and plan 1. ESRD (end stage renal disease) on dialysis: 2. Acute hypoxic respiratory failure: 3. Pulmonary edema: 4. Systolic CHF: 5. Hx of CAB. Ischemic congestive cardiomyopathy: 7. Chronic hypertension: 8. NSTEMI (non-ST elevated myocardial infarction): 9. Acute hyperkalemia: 10. Healthcare-associated pneumonia: 11. COVID-19: 12. Hyperglycemia: 13. Sepsis: 14. Hypertensive emergency: Plan: Acute hypoxic respiratory failure - With evidence of moderate respiratory distress - Multifactorial - COVID-19 pneumonia - Healthcare associated pneumonia - Acute flash pulmonary edema, fluid overload, systolic CHF, ischemic cardiomyopathy -History EF of EF of 35%, severely decreased left ventricular systolic function -History of multiple subsegmental pulmonary emboli ct angio CT/CT angio chest PE protcl [id number] IMPRESSION: No definitive radiographic evidence of significant pulmonary embolism. Aortic coronary atherosclerosis. Scattered multifocal patchy opacities throughout the bilateral lungs, [id number], nonspecific although concerning for pneumonia or edema with other etiologies not excluded. Dependent changes, likely atelectasis though superimposed airspace disease from other etiologies not excluded. Plan - Admit to ICU - Monitor respiratory status closely - Continue BiPAP therapy - DuoNeb - Budesonide - Decadron - Remdesivir - Vancomycin - Zosyn - Urgent dialysis tonight - Nitroglycerin drip for hypertensive emergency - NSTEMI heparin drip - Blood cultures - Sputum culture - Full code - Heparin drip for DVT prophylaxis Sepsis - Etiology likely healthcare associated pneumonia, COVID-19 NSTEMI -With history of ischemic cardiomyopathy,'s EF of 35% History of CABG- - With recent history of cardiac stenting, PCI to ostial diagonal branch with 1 drug-eluting stent for severe in-stent restenosis, 10/15 - Continue aspirin, statin, Plavix - Heparin drip - Cardiac echo - Cardiology consulted Hypertensive emergency -With NSTEMI, acute flash pulm edema - Nitroglycerin drip Hyperglycemia - Recent A1c 5.6 - Will be on Decadron, concern for hyperglycemia - Low-dose sliding scale End-stage renal disease on dialysis - Nephrology consulted for dialysis History of pulmonary embolism, switch to heparin drip Hyperkalemia - Has received hyperkalemia protocol in the emergency room including Kayexalate, insulin - Will receive dialysis tonight PDMP PDMP Reviewed: Not Reviewed Attestations Medical Necessity Statement*: Patient requires hospitalization, inpatient, greater than 2 midnights, for acute hypoxic respiratory failure, COVID-19, pneumonia, systolic CHF, NSTEMI, healthcare associated pneumonia, hyperkalemia, end-stage renal disease on dialysis, hypertensive emergency Coding Level of Care Code Critical Care >/= 30 minutes Critical care time (in minutes): 50 The high probability of a clinically significant, sudden or life threatening deterioration, as referenced in this documentation, required my full and direct attention, intervention and personal management. The critical care time shown is in addition to time spent performing any reported separately billable procedures and includes the following: [x] Data and vital sign review and interpretation [x] Patient assessment, examination and intervention [x] Medication orders and management [x] Patient/Family updates as able [x] Care Coordination and Documentation. Diagnoses ESRD (end stage renal disease) on dialysis N18.6; Z99.2 Acute hypoxic respiratory failure J96.01 Pulmonary edema J81.1 Systolic CHF I50.20 Hx of CABG Z95.1 Ischemic congestive cardiomyopathy I25.5; I42.0 Chronic hypertension I10 NSTEMI (non-ST elevated myocardial infarction) I21.4 Acute hyperkalemia E87.5 Healthcare-associated pneumonia J18.9 COVID-19 U07.1 Hyperglycemia R73.9 Sepsis A41.9 Hypertensive emergency I16.1 Sepsis Event Note Evaluation Current stage of sepsis: sepsis Possible source: pulmonary Focused Exam Vital Signs Temp Pulse Pulse Pulse Resp Resp Resp 11/12/24 22:00 102 H 28 H 11/12/24 21:40 112 H 11/12/24 21:11 91 24 H 11/12/24 21:00 96 25 H 11/12/24 20:08 88 28 H 11/12/24 17:48 98.2 F 83 17 BP Pulse Ox Pulse Ox Pulse Ox O2 Del Method O2 Flow Rate O2 Flow Rate 11/12/24 22:00 207/117 100 BiPAP 11/12/24 21:40 98 11/12/24 21:11 99 45 11/12/24 21:00 232/131 100 High Flow Nasal Cannula 11/12/24 20:08 95 50 11/12/24 17:48 205/113 96 FiO2 FiO2 FiO2 11/12/24 22:00 70 11/12/24 21:40 70 11/12/24 21:11 75 11/12/24 21:00 75 11/12/24 20:08 90 11/12/24 17:48 Respiratory exam: Present accessory muscle use and respiratory distress Cardiovascular exam: Present tachycardia Capillary refill: > 3 Seconds Peripheral pulse strength: 2+ Slightly Diminished Peripheral pulse location: Pedal Skin exam: normal turgor Date exam was performed: 11/12/24 Time exam was performed: 23:06 Problem List 1. ESRD (end stage renal disease) on dialysis: Status: Acute 2. Acute hypoxic respiratory failure: Status: Acute 3. Pulmonary edema: Status: Acute 4. Systolic CHF: Status: Acute 5. Hx of CABG: Status: Acute 6. Ischemic congestive cardiomyopathy: Status: Acute 7. Chronic hypertension: Status: Acute 8. NSTEMI (non-ST elevated myocardial infarction): Status: Acute 9. Acute hyperkalemia: Status: Acute 10. Healthcare-associated pneumonia: Status: Acute 11. COVID-19: Status: Acute 12. Hyperglycemia: Status: Acute 13. Sepsis: Status: Resolved 14. Hypertensive emergency: Status: Acute
[2024-11-12 22:43] LABS: Procalcitonin 0.41 ng/mL (0-0.5)
[2024-11-12 23:22] LABS: INR 0.98 (0.8-1.2); Prothrombin Time 13.70 SECONDS (12.1-14.9)
[2024-11-12 23:29] LABS: Lactic Sepsis W/Reflex 2.2 mmol/L (0.5-2.2)
[2024-11-13] VITALS (82 sets, daily range): BP systolic 144–207; BP diastolic 87–131; PULSE 75–108; RESP 12–49; TEMP 36.1–37.1; O2SAT 89–100
[2024-11-13 00:11] LABS: NT Pro B Type Natriuretic Pept > 70000 pg/mL (0-125)
[2024-11-13 00:43] LABS: Troponin 5 6HR 346.9 ng/L (0-15); Troponin 5 6HR Delta 45.9 ng/L (0-12)
--- NOTE | 2024-11-13 00:44 | ECG_ITS ---
[facility] 2024[facility]13 Pat Name: Jose Guadalupe Claudio Department: Room: [id number] Gender: Male [employer]: : 1980 Requested By: Sylvia Rivera Order Number: [id number] Cristobal MD: Ursula Lyn M.D. Measurements Intervals [place] Rate: 83 P: 66 IA: 142 QRS: 33 QRSD: 105 T: 64 QT: 413 QTc: 488 Interpretive Statements SINUS RHYTHM ANTEROSEPTAL MYOCARDIAL INFARCTION , OF INDETERMINATE AGE [40+ ms Q WAVE IN V1-V4] Compared to ECG 11/12/2024 19:56:38 No significant changes Electronically Signed On 11-14-2024 09:28:24 CDT by Ursula Lyn M.D. [email or web address]
[2024-11-13 00:53] LABS: Reflex Lactate Order REFLEX LACTIC ORDERD
[2024-11-13] MEDS: heparin, porcine 1,000 unit/mL INJ 10 mL 2000 UNIT IV (01:03)
[2024-11-13] MEDS: heparin 5,000 unit/mL INJ 1 mL IVP (01:22)
[2024-11-13] MEDS: heparin drip 25,000 UNIT/500 ML PREMIX 20 UNIT IV (01:22)
[2024-11-13] MEDS: remdesivir 200 MG in sodium chloride 0.9% (100 ml) 60 ML 100 MG IV (02:00)
[2024-11-13 03:02] LABS: Lactic Acid level (Lactate) 1.1 mmol/L (0.5-2.2)
[2024-11-13] MEDS: nitroglycerin drip 50 MG/250 ML PREMIX IV (04:32)
[2024-11-13] MEDS: piperacillin-tazobactam 2.25 GM in sodium chloride 0.9% (plus) 50 ML IV (05:12)
[2024-11-13 05:33] LABS: Hematocrit 33.2 % (37-53); Hemoglobin 10.80 g/dL (11.27-16.99); Mean Corpuscular HGB Conc 32.5 g/dL (30-55); Mean Corpuscular Hemoglobin 28.7 pg (27-33); Mean Corpuscular Volume 88.3 fl (82-101); Nucleated Red Blood Cells % 0 %; Platelet Count 235 10^3/cmm (157-399); Red Blood Count 3.76 10^6/uL (3.85-5.65); White Blood Count 10.23 10^3/uL (3.29-11.43)
[2024-11-13 06:15] LABS: Alanine Aminotransferase 9 U/L (0-41); Albumin Level 3.6 g/dL (3.5-5.2); Alkaline Phosphatase 74 U/L (40-130); Anion Gap 22.6 (5-19); Aspartate Amino Transferase 17 U/L (0-40); Blood Urea Nitrogen 16 mg/dL (6-20); Calcium 9.3 mg/dL (8.5-10.5); Carbon Dioxide 22 mmol/L (22-29); Chloride 96 mmol/L (98-107); Creatinine Clr Calc Pharmacy 37.5331; Globulin 4.3 g/dL (1.3-4.6); Glucose 148 mg/dL (65-115); Magnesium 2.0 mg/dL (1.7-2.3); Osmolality Calculated 288 mOsm/kg (285-295); Potassium 3.6 mmol/L (3.5-5.1); Sodium 137 mmol/L (136-145); Total Protein 7.9 g/dL (6.6-8.7)
[2024-11-13 06:45] LABS: NT Pro B Type Natriuretic Pept > 70000 pg/mL (0-125)
[2024-11-13 07:05] LABS: Thyroid Stimulating Hormone 4.31 uIU/mL (0.27-4.20)
--- NOTE | 2024-11-13 07:58 | P.CONIM_ITS ---
Providers/Reason For Consult 2 Consulting Physician/Specialty*: JESSICA Lyn MD/cardiology Reason for Consult*: Patient with recent coronary intervention, presenting with acute pulmonary edema and accelerated hypertension Requesting Physician: Dr. Fox Attending Physician: Canelo Fox MD Primary Care Provider: Yaniv Moe MD History of Present Illness History of Present Illness Jose Guadalupe Claudio is a 44 year old male with multiple medical problems including atherosclerotic heart disease, coronary bypass surgery x 4, status post recent PCIs in August and October of this year presented to the emergency room yesterday with uncontrolled blood pressure. Apparently he went into acute pulmonary edema while being in the emergency room. He was placed on a BiPAP and subsequently got admitted to the hospital for further evaluation management. His baseline troponin T was elevated. Cardiology consult is requested for further cardiac evaluation and recommendations. This patient was recently discharged in the hospital, 3 weeks ago where he presented with features of a non-ST elevation myocardial infarction. The cardiac catheterization revealed high-grade in-stent stenosis in the second diagonal branch of the Left anterior descending artery. He underwent PCI of this lesion. He was discharged home in stable condition. He is on chronic hemodialysis, 3 times a week. According to the patient, he did not have any chest pain or unusual shortness of breath. For the last few days, his blood pressure started going up. Yesterday morning the pressure was in the 220 range, systolic and the diastolic blood pressure was in the 120-140 range. He did not have chest pain. He started having shortness of breath in the emergency room. He had a cough for the last few days. The PCR for COVID came back positive. Currently he is on isolation. According to him, he did not have any fever or chills. He has been coughing up mostly whitish sputum. His troponin T has been persistently elevated since last year. He has no significant delta so far. This patient has a very complicated history. He had four-vessel bypass surgery in 2018 at the [facility] in [place]. He presented with a heart attack at that time. In 2019, he was admitted to [facility] in [facility] with respiratory distress and altered mental status. He was diagnosed with COVID-19 pneumonia? At that time. He was intubated for a long time. He underwent tracheostomy during that hospital stay. He also developed stroke during the hospital stay. Patient attributes this to withholding his blood pressure medication during the hospital admission?. He almost recovered completely from this with some very of the residual right upper extremity weakness. He also developed kidney failure during that hospital admission. He was initially on peritoneal dialysis and currently on hemodialysis through a subclavian catheter on the right side. He had MRSA infection also during the hospital stay. Apparently the patient remarkably improved since then. He has been doing okay with no significant issues. He is being followed up by a binding printer in [place] for his cardiac condition-Dr. Nash?. He had a Myocardial perfusion imaging couple of years ago and was told to be okay. He has a history of multiple episodes of pneumonia. Has a history of hypertension, dyslipidemia, type 2 diabetes and reactive airway disease. No history for liver disease or bleeding disorders. He used to smoke heavily and has cut back since 2019. He smokes marijuana and is a licensed marijuana user. He has a strong family history of premature atherosclerotic heart disease. His father had myocardial infarction at age of 41 and of the same. Mother had myocardial infarction at the age of 49 and had a coronary artery bypass surgery. No other relevant family history. He is and has 4 children. He has 3 siblings and apparently have no major medical problems . Currently has no chest pain or chest tightness. He was found to have both segmental and subsegmental pulmonary emboli. Some features of pulmonary infarct in the right upper lobe. Patchy densities in the lower lobe area, suggestive of inflammatory process. No evidence of any right ventricular strain Review of Systems 2 Narrative: CONSTITUTIONAL: No fever or chills. EYES: No blurring of vision or other visual disturbances lately. ENT: No hoarseness of voice, auditory disturbances or sore throat. CARDIOVASCULAR: As mentioned above. RESPIRATORY: Acute onset of shortness of breath as mentioned above GASTROINTESTINAL: No hematemesis or melena. GENITOURINARY: No dysuria or hematuria. INTEGUMENTARY: No skin rashes or history of skin cancer. NEURO: No transient ischemic attacks or amaurosis. PSYCHIATRIC: No history of psychosis or major depression. HEMATOLOGIC: On long-term oral anticoagulation for the DVT/PE ENDOCRINE: No history of polyuria or polydipsia. MUSCULOSKELETAL: No recent joint pain or swelling. ALLERGY/IMMUNOLOGY: As mentioned above. Medications/Allergies Home Medications ?Medication ?Instructions ?Recorded ?Confirmed ?Last Taken ?Type buspirone 5 mg tablet 5 mg PO TID 06/09/24 5 10/13/24 07:00 History hydralazine 100 mg tablet 100 mg PO TID 06/09/2411/1310/13/24 07:00 History Held on 10/29/24. Instructions: hypotension loperamide 2 mg capsule See Rx Instructions .Route . COMPLEX 06/09/24 11/13/24 10/13/24 08:00 History mirtazapine 15 mg tablet 7.5 mg PO QPM 06/09/2411/1310/12/24 19:00 History pantoprazole 40 mg tablet,delayed 40 mg PO DAILY 06/0911/13/24 10/13/24 History release ropinirole 0.5 mg tablet 0.5 mg PO QPM 06/09/2411/1310/12/24 19:00 History sevelamer carbonate 800 mg tablet See Rx Instructions .Route .COMPLEX 06/09/24 11/13/24 10/13/24 08:00 History venlafaxine 150 mg 150 mg PO DAILY 06/09/2409/0210/13/24 History capsule,extended release 24 hr clopidogrel 75 mg tablet 75 mg PO DAILY 30 days #30 t abs 08/22/24 11/13/24 10/13/24 Rx sodium bicarbonate 325 mg tablet 325 mg PO DAILY PRN S tomach ACID 09/19/24 11/13/24 Unknown History vit B,C-folic ac 800 mcg-zinc 12.5 See Rx Instructions .Route .COMPLEX 10/13/24 11/13/24 Unknown History mg-selen-D3 2,000 unit-vit E tablet (RenaPlex-D) apixaban 5 mg tablet (Eliquis) 5 mg PO BID@0900,2100 # 60 tabs 10/18/24 11/13/24 Unknown Rx nifedipine 30 mg tablet,extended 90 mg (3 x 30 mg) PO DAILY 30 days 10/18/24 11/13/24 Unknown Rx release 24 hr #90 tabs Held on 10/29/24. Instructions: Dose Change clonidine HCl 0.3 mg tablet 0.3 mg PO TID PRN bp 10/2911/13/24 Unknown History amlodipine 5 mg tablet 5 mg PO QPM 11/13/24 5 Unknown History calcitriol 0.25 mcg capsule 0.75 mcg PO DAILY 11/13/24 11/13/24 Unknown History carvedilol 25 mg tablet 50 mg PO TID 11/13/24 Unknown History insulin lispro 100 unit/mL 15 unit SUBCUT TID 11/13/24 11/13/24 Unknown History subcutaneous pen lisinopril 20 mg tablet 20 mg PO DAILY 11/13/2409/02 Unknown History losartan 50 mg tablet 100 mg PO DAILY 11/13/2409/02 Unknown History megestrol 400 mg/10 mL (40 mg/mL) 400 mg PO BID 11/13/24 Unknown History oral suspension warfarin 5 mg tablet 5 mg PO DAILY 11/13/2411/13 Unknown History Allergies Allergy/AdvReac Type Severity Reaction Status Date / Time No Known Allergies Allergy Verified 10/29/24 14:54 Current Medications Generic Name Dose Route Start Last Admin Trade Name Freq PRN Reason Stop Dose Admin Albuterol/Ipratropium 3 ml 11/13/24 04:00 11/13/24 04:32 Ipratropium-Albuterol 3 Ml Neb INHALATION 3 ml Q4H.RESPIRATORY JAQUELINE Administration Aspirin 81 mg 11/13/24 00:47 11/13/24 02:06 Aspirin 81 Mg Ec Tablet PO 81 mg DAILY JAQUELINE Administration Dexamethasone 6 mg 11/13/24 01:30 11/13/24 02:01 Dexamethasone 10 Mg/Ml Inj IVP 6 mg Q24H JAQUELINE Administration Heparin Sodium/Sodium Chloride 25,000 unit in 500 mls @ 0 mls/hr 11/12/24 22:00 11/13/24 01:22 Heparin Drip IV 14.08 unit/kg/hr CONT JAQUELINE 20 mls/hr Protocol Administration Per Protocol Nitroglycerin/Dextrose 50 mg in 250 mls @ 0 mls/hr 11/12/24 22:00 11/13/24 06:27 Nitroglycerin Drip IV 20 mcg/min .Q0M JAQUELINE 6 mls/hr Protocol Titration Per Protocol Piperacillin Sod/Tazobactam 50 mls @ 100 mls/hr 11/13/24 02:00 11/13/24 06:26 Sod 2.25 gm/ Sodium Chloride IV Infused Q12H JAQUELINE Infusion PFSH Acute 2 PFSH: Medical History Left ventricular systolic dysfunction (LVSD), NYHA class 3 Chronic hypertension ESRD (end stage renal disease) Diabetic peripheral neuropathy associated with type 2 diabetes mellitus Ingrowing toenail of left foot Hematoma of leg Non-pressure chronic ulcer of 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 Bilateral pes planus Medical non-compliance Hypertensive urgency Closed right trimalleolar fracture Restless leg syndrome Peritonitis CAD (coronary artery disease) Depression End-stage renal disease on peritoneal dialysis Anemia Surgical History Hx of CABG Social History Smoking and tobacco/nicotine status: current every day tobacco/nicotine user (Cannabis/ Quit cigarettes 5 years ago) Alcohol intake: never Substance/Drug Use: current Other substance/drug use details: Medical marijuana Vitals/I&O/Wt Last Vital Signs Temp 97.0 F L 11/13/24 05:09 Pulse 94 11/13/24 05:59 Resp 15 11/13/24 05:09 BP 195/122 11/13/24 05:09 Pulse Ox 100 11/13/24 04:32 O2 Del Method BiPAP 11/13/24 04:32 O2 Flow Rate 45 11/12/24 21:11 FiO2 50 11/13/24 04:32 11/12/24 11/13/24 11/13/24 22:59 06:59 14:59 Intake Total 357.525 / 357.525 Output Total 3300 / 3300 Balance -2942.475 / -2942.475 Weight last 48 hrs Weight 151 lb 4.8 oz Weight 151 lb 0.266 oz Weight 156 lb 8.451 oz Weight 143 lb 4.807 oz Physical Exam 2 Narrative: GENERAL: The patient is alert and oriented times three. Not in any acute distress. HEENT: No significant pallor, icterus or lymphadenopathy.Oral cavity: There are no mucous membrane lesions. NECK: Trachea appears to be central. No masses noted. No JVD or thyromegaly appreciated. RESPIRATORY: Chest is symmetrical. No intercostals muscle retraction or any accessory muscle activation. There is no chest wall tenderness. Breath sounds are heard bilaterally. No rales or rhonchi heard. No evidence of any consolidation. BREASTS: Deferred. HEART: The heart sounds are normal. No S3 or S4. No significant murmurs. No pericardial rub ABDOMEN: No vessel pulsations or distention. No tenderness. No organomegaly appreciated. Bowel sounds are normally heard. : Deferred. RECTAL: Deferred. LYMPHATIC: No lymphadenopathy noted in the neck. EXTREMITIES: No edema or cyanosis. No clubbing. MUSCULOSKELETAL: No acute joint deformities or swelling SKIN: There are no significant rashes or ecchymosis NEUROPSYCHIATRIC: The patient is alert and oriented x3. Appears to be in a good mood. No tremors or rigidity noted. Data 11/13/24 05:02 11/13/24 05:02 Other Labs: Laboratory Last Values WBC 10.23 10^3/uL (3.29-11.43) 11/13/24 05:02 RBC 3.76 10^6/uL (3.85-5.65) L 11/13/24 05:02 Hgb 10.80 g/dL (11.27-16.99) L 11/13/24 05:02 Hct 33.2 % (37-53) L 11/13/24 05:02 MCV 88.3 fl (82-101) 11/13/24 05:02 MCH 28.7 pg (27-33) 11/13/24 05:02 MCHC 32.5 g/dL (30-55) 11/13/24 05:02 RDW 16.3 % (12.1-15.1) H 11/13/24 05:02 Plt Count 235 10^3/cmm (157-399) 11/13/24 05:02 MPV 9.5 fL (7.4-10.4) 11/13/24 05:02 Neut % (Auto) 91.6 % 11/13/24 05:02 Lymph % (Auto) 4.1 % 11/13/24 05:02 [place] % (Auto) 2.3 % 11/13/24 05:02 Eos % (Auto) 0.5 % 11/13/24 05:02 Baso % (Auto) 0.9 % 11/13/24 05:02 Neut # (Auto) 9.37 10^3/uL (1.8-7.7) H 11/13/24 05:02 Lymph # (Auto) 0.4 10^3/uL (0.8-4.8) L 11/13/24 05:02 [place] # (Auto) 0.2 10^3/uL (0.2-0.9) 11/13/24 05:02 Eos # (Auto) 0.1 10^3/uL (0.0-0.8) 11/13/24 05:02 Baso # (Auto) 0.1 10^3/uL (0.0-0.1) 11/13/24 05:02 Nucleated RBC % (auto) 0 % 11/13/24 05:02 Nucleated RBCs # 0.0 /100WBC 11/13/24 05:02 PT 13.70 SECONDS (12.1-14.9) 11/12/24 22:45 INR 0.98 (0.8-1.2) 11/12/24 22:45 D-Dimer 1.22 ug/mLFEU (0-0.59) H 11/12/24 22:45 Specimen Type Arterial 11/12/24 19:38 Sample Site Brachial, right 11/12/24 19:38 ABG pH 7.47 (7.35-7.45) H 11/12/24 19:38 ABG pCO2 33.1 mmHg (35-45) L 11/12/24 19:38 ABG pO2 52.0 mmHg (80.0-100.0) L 11/12/24 19:38 ABG HCO3 23.8 mmol/L (22-26) 11/12/24 19:38 ABG Base Excess 0.5 mmol/L (-2.0-2.0) 11/12/24 19:38 Otoniel Test N/a 11/12/24 19:38 Hematocrit 36.7 % (42-52) L 11/12/24 19:38 O2 Delivery Device Nrb 11/12/24 19:38 O2 Liters/Min 15.0 % 11/12/24 19:38 Temperer ID [email or web address] 11/12/24 19:38 Sodium 137 mmol/L (136-145) 11/13/24 05:02 Potassium 3.6 mmol/L (3.5-5.1) 11/13/24 05:02 Chloride 96 mmol/L (98-107) L 11/13/24 05:02 Carbon Dioxide 22 mmol/L (22-29) 11/13/24 05:02 Anion Gap 22.6 (5-19) H 11/13/24 05:02 BUN 16 mg/dL (6-20) 11/13/24 05:02 Creatinine 2.6 mg/dL (0.7-1.2) H 11/13/24 05:02 GFR Calculation 26.8 mL/min (90-130) L 11/13/24 05:02 Glucose 148 mg/dL (65-115) H 11/13/24 05:02 POC Glucose 117 mg/dL (70-110) H 11/13/24 00:51 Calculated Osmolality 288 mOsm/kg (285-295) 11/13/24 05:02 Lactic Acid 2.2 mmol/L (0.5-2.2) 11/12/24 22:45 Lactic Acid (Sepsis) 1.1 mmol/L (0.5-2.2) 11/13/24 02:10 Calcium 9.3 mg/dL (8.5-10.5) 11/13/24 05:02 Phosphorus 2.4 mg/dL (2.5-4.5) L 11/13/24 05:02 Magnesium 2.0 mg/dL (1.7-2.3) 11/13/24 05:02 Total Bilirubin 0.6 mg/dL (0.15-1.2) 11/13/24 05:02 AST 17 U/L (0-40) 11/13/24 05:02 ALT 9 U/L (0-41) 11/13/24 05:02 Alkaline Phosphatase 74 U/L (40-130) 11/13/24 05:02 Troponin T Baseline 301 ng/L (0-15) H* 11/12/24 18:01 Troponin T 120 Minute 264.8 ng/L (0-15) H 11/12/24 19:50 Delta Troponin T -36.2 ABS# (0-10) L 11/12/24 19:50 Troponin T Hi Sens 6Hr 346.9 ng/L (0-15) H 11/13/24 00:13 Troponin T Hi Sens 6Hr Delta 45.9 ng/L (0-12) H* 11/13/24 00:13 C-Reactive Protein 26.3 mg/L (0.0-4.9) H 11/12/24 18:01 NT-Pro-B Natriuret Pep > 35116 pg/mL (0-125) H 11/13/24 05:02 Total Protein 7.9 g/dL (6.6-8.7) 11/13/24 05:02 Albumin 3.6 g/dL (3.5-5.2) 11/13/24 05:02 Globulin 4.3 g/dL (1.3-4.6) 11/13/24 05:02 Lipase 535 U/L (13-60) H 11/12/24 18:01 Procalcitonin 0.41 ng/mL (0-0.5) 11/12/24 18:01 TSH 4.31 uIU/mL (0.27-4.20) H 11/13/24 05:02 Influenza A (PCR) Negative (Negative) 11/12/24 21:16 Influenza Type B (PCR) Negative (Negative) 11/12/24 21:16 RSV (PCR) Negative (Negative) 11/12/24 21:16 SARS-CoV-2 (PCR) Positive (Negative) A 11/12/24 21:16 Micro: Microbiology 11/12/24 22:50 Blood Culture - Preliminary Blood SPECIMEN COLLECTED 11/12/24 22:45 Blood Culture - Preliminary Blood SPECIMEN COLLECTED Other data: EKG from 12/13/2024 Sinus rhythm with a poor R wave progression. Features of old anteroseptal HI. Some nonspecific ST changes. Otherwise unremarkable. No new changes. Echocardiogram from 11/12/2024 Diffuse hypokinesia of the left ventricular ejection fraction of 36%. Mildly dilated LV cavity. Normal right ventricular size. Mildly decreased right ventricular systolic function. Mildly increased right atrial size. Moderately increased left atrial size. Mild mitral annular calcification. Mild mitral valve regurgitation. Thickened aortic valve. Trace to mild tricuspid valve regurgitation. Mild to moderate pulmonary valve regurgitation. Estimated pulmonary artery peak systolic pressure within normal limits., This could be an underestimation because of the poor Doppler signals. Mild to moderate pulmonary valve regurgitation. There is no pericardial effusion. There are no intracardiac masses. Compared to the study from 10/14/2024, there may not be a significant change Most recent cardiac catheterization on 10/13/2024 Diagnostic Findings * Left Main has no disease. * Mid Left Anterior Descending: total occlusion, JAZMYNE: 0 flow. * Left Internal Mammary Artery to Mid Left Anterior Descending graft: patent. * Mid Right Coronary Artery: moderate 50% stenosis, JAZMYNE: 3 flow. * Proximal Circumflex: total occlusion, JAZMYNE: 0 flow. * Distal Circumflex to Right Posterior AV collaterallization. * Ascending Aorta to 1st Diagonal graft: total occlusion, JAZMYNE: 0 flow. * 1st Diagonal: severe 90% stenosis, JAZMYNE: 3 flow. * Sequential SVG graft from 1st Diagonal to First Obtuse Marginal Branch Segment: patent. * Ascending Aorta to Second Obtuse Marginal Branch Segment graft: total occlusion, JAZMYNE: 0 flow. * Four grafts visualized. * Coronary angiography shows right dominance. A&P Assessment and plan 1. Atherosclerosis of [place] coronary artery of [place] heart without angina pectoris: Patient status post multiple PCI's in the recent past. Currently has no chest pain. Persistently elevated troponin T wave most likely due to the kidney failure 2. Elevated troponin: Patient has a persistent elevated troponin T since last year. There is no significant delta. I reviewed the echocardiogram. The LV ejection fraction is unchanged or if it all there maybe a slight improvement. 3. Acute pulmonary edema: Most likely this is related to the x-ray of the hypertension. There is no evidence of any acute ischemic event. 4. Multiple subsegmental pulmonary emboli without acute cor pulmonale: The patient may be kept on the long-term oral anticoagulant. For myocardial standpoint, patient does not require any specific cardiac intervention at this point. 5. Accelerated hypertension: The antihypertensive medications need to be optimized. The dose of the amlodipine may be increased to 10 mg p.o. daily. 6. ESRD (end stage renal disease) on dialysis: Continue with hemodialysis as per schedule 7. Ischemic congestive cardiomyopathy: Patient is on a LifeVest. This may be continued. Plan: Other problems COVID-19 positive Type 2 diabetes Diabetic neuropathy IV diuresis/hemodialysis Optimize antihypertensive medications Closely monitor on telemetry Patient may not require any cardiac intervention at this point. He has no evidence of any myocardial injury except for the chronically elevated troponin T. Based on the clinical progress, further recommendations will be made Thank you for the opportunity to evaluate this patient and make these recommendations PDMP PDMP Reviewed: Not Reviewed Coding Level of Care Code 83444 Diagnoses Atherosclerosis of [place] coronary artery of [place] heart without angina pectoris I25.10 Coronary Disease-Associated Artery/Lesion type: [place] artery Elevated troponin R79.89 Acute pulmonary edema J81.0 Chronicity: acute Multiple subsegmental pulmonary emboli without acute cor pulmonale I26.94 Pulmonary embolism type: multiple subsegmental (without acute cor pulmonale) Accelerated hypertension I10 ESRD (end stage renal disease) on dialysis N18.6; Z99.2 Ischemic congestive cardiomyopathy I25.5; I42.0
[2024-11-13] MEDS: NIFEdipine ER (24 hr) 30 mg Tablet 90 MG PO (08:16)
[2024-11-13] MEDS: pantoprazole 40 mg SDV IVP ×2 (08:17→20:54)
[2024-11-13] MEDS: venlafaxine ER (24HR) 150 mg Capsule PO (08:17)
[2024-11-13 09:39] LABS: Partial Thromboplastin Time 114.8 SECONDS (23.9-36.7)
--- NOTE | 2024-11-13 10:03 | PC.PHAR ---
Pt unable to verify medications and uses 3 pharmacies. Duplication on blood thinners. See Below: [facility]: Clopidogrel 75mg daily, Loperamide 2mg 1qam and 2qpm, Warfarin 5mg daily, Linsinopril 20mg daily, Amlodipine 5mg qpm, and Venlafaxine 150mg daily. [facility]: Eliquis 5mg bid, Losartan 50mg 2 daily, and Nifedipine 30mg 90mg daily. [facility]: Buspirone 5mg tid, Carvedilol 25mg 2 tid, Clonidine Hcl 0.3mg tid prn, Hydralazine 100mg tid, Calcitriol 00.25mg 3 daily, Lispro Insulin 15 units tid, Megestrol 40mg/ml susp. 1 ml bid, Mirtazapine 15mg 0.5 tablet qpm, Pantoprazole 40mg daily,, Renaplex d 800mg 1 daily after dialysis, Ropinirole 0.5mg qpm, Sevelamre Carb. 800mg 2 with largest meal and 1 with others daily, and Sodium Bicarb. 325mg 1 daily prn.
--- NOTE | 2024-11-13 10:27 | P.PN_ITS ---
Subjective 2 Subjective: feels better. no n/v/f/c/tanner/d/sob. Medications: Reviewed: Yes Medication Review Details: Current Medications Acetaminophen (Acetaminophen 325 Mg Tablet) 650 mg PO Q6H PRN PRN Reason: Mild/Mod Pain Or Temp >/= 101 Albuterol/Ipratropium (Ipratropium-Albuterol 3 Ml Neb) 3 ml INHALATION Q4H.RESPIRATORY [facility] Last Admin: 11/13/24 08:22 Dose: 3 ml Aspirin (Aspirin 81 Mg Ec Tablet) 81 mg PO DAILY [facility] Last Admin: 11/13/24 08:16 Dose: 81 mg Budesonide (Budesonide 0.5 Mg/2 Ml Neb) 0.5 mg INHALATION BID.RESPIRATORY [facility] Last Admin: 11/13/24 08:22 Dose: 0.5 mg Buspirone HCl (Buspirone 10 Mg Tablet) 5 mg PO TID [facility] Last Admin: 11/13/24 08:17 Dose: 5 mg Carvedilol (Carvedilol 25 Mg Tablet) 25 mg PO BID [facility] Last Admin: 11/13/24 08:17 Dose: 25 mg Clopidogrel Bisulfate (Clopidogrel 75 Mg Tablet) 75 mg PO DAILY [facility] Last Admin: 11/13/24 08:18 Dose: 75 mg Dexamethasone (Dexamethasone 10 Mg/Ml Inj) 6 mg IVP Q24H [facility] Last Admin: 11/13/24 02:01 Dose: 6 mg Glucagon (Glucagon 1 Mg/Ml Kit 1 Ml) 1 mg IM ONCE PRN; Protocol PRN Reason: Adult Acute Hypoglycemia Nursing Prot. Heparin Sodium (Porcine) (Heparin 5,000 Unit/Ml Inj 1 Ml) 0 unit IVP PRN PRN; Protocol PRN Reason: Heparin Weight Based Protocol -Subsequent Bolus Hydralazine HCl (Hydralazine 50 Mg Tablet) 100 mg PO TID [facility] Last Admin: 11/13/24 08:16 Dose: 100 mg Heparin Sodium/Sodium Chloride (Heparin Drip) 25,000 unit in 500 mls @ 0 mls/hr IV CONT [facility]; Protocol Last Titration: 11/13/24 09:43 Dose: 11.27 unit/kg/hr, 16 mls/hr Nitroglycerin/Dextrose (Nitroglycerin Drip) 50 mg in 250 mls @ 0 mls/hr IV .Q0M [facility]; Protocol Last Titration: 11/13/24 06:27 Dose: 20 mcg/min, 6 mls/hr Albumin Human (Albumin) 12.5 gm in 50 mls @ 60 mls/hr IV PRN PRN PRN Reason: Hypotension and/or symptomatic Dextrose (D5w) 500 mls @ 0 mls/hr IV ONCE PRN; Protocol PRN Reason: Adult Acute Hypoglycemia Prot Dextrose (D10w) 125 mls @ 750 mls/hr IV PRN PRN; Protocol PRN Reason: Adult Acute Hypoglycemia Nursing Protocol Dextrose (D10w) 250 mls @ 1,000 mls/hr IV PRN PRN; Protocol PRN Reason: Adult Acute Hypoglycemia Nursing Protocol Remdesivir 100 mg/ Sodium (Chloride) 100 mls @ 100 mls/hr IV Q24H [facility] Stop: 11/16/24 18:59 Vancomycin HCl / Sodium (Chloride) 250 mls @ 0 mls/hr [id number] PROTOCOL [facility]; Protocol Piperacillin Sod/Tazobactam (Sod / Sodium Chloride) 50 mls @ 0 mls/hr [id number] CONT [facility]; Protocol Piperacillin Sod/Tazobactam (Sod 2.25 gm/ Sodium Chloride) 50 mls @ 100 mls/hr IV Q12H [facility] Last Infusion: 11/13/24 06:26 Dose: Infused Losartan Potassium (Losartan 50 Mg Tablet) 25 mg PO DAILY [facility] Last Admin: 11/13/24 08:16 Dose: 25 mg Mirtazapine (Mirtazapine 15 Mg Tablet) 7.5 mg PO QPM [facility] Morphine Sulfate (Morphine 4 Mg/Ml Sdv 1 Ml) 2 mg IVP Q4H PRN PRN Reason: SEVERE PAIN Nifedipine (Nifedipine Er (24 Hr) 30 Mg Tablet) 90 mg PO DAILY [facility] Last Admin: 11/13/24 08:16 Dose: 90 mg Non-Formulary Medication (Vit B,H-Sy-Hedm-Selen-Vit D3-E [Renaplex-D]) 0 tab .ROUTE .COMPLEX [facility] Ondansetron HCl (Ondansetron 2 Mg/Ml Sdv 2 Ml) 4 mg IVP Q8H PRN PRN Reason: vomiting, or N/V if npo Pantoprazole Sodium (Pantoprazole 40 Mg Sdv) 40 mg IVP Q12H [facility] Last Admin: 11/13/24 08:17 Dose: 40 mg Ropinirole HCl (Ropinirole 0.25 Mg Tablet) 0.5 mg PO QPM [facility] Sevelamer Carbonate (Sevelamer 800 Mg Tablet) 1,600 mg PO SUPPER [facility] Sevelamer Carbonate (Sevelamer 800 Mg Tablet) 800 mg PO BID@0800,1300 [facility] Last Admin: 11/13/24 08:20 Dose: 800 mg Vancomycin HCl (Vancomycin 1,000 Mg Sdv (Pharmacy Mix)) 0 mg XX PRN PRN PRN Reason: Pharmacy to Dose Venlafaxine HCl (Venlafaxine Er (24hr) 150 Mg Capsule) 150 mg PO DAILY [facility] Last Admin: 11/13/24 08:17 Dose: 150 mg Vitals/I&O/Wt Last Vital Signs Temp 97.0 F L 11/13/24 05:09 Pulse 96 11/13/24 10:00 Resp 21 H 11/13/24 10:00 BP 189/115 11/13/24 10:00 Pulse Ox 91 11/13/24 10:00 O2 Del Method Room Air 11/13/24 08:20 O2 Flow Rate 45 11/12/24 21:11 FiO2 50 11/13/24 04:32 11/12/24 11/13/24 11/13/24 22:59 06:59 14:59 Intake Total 357.525 / 357.525 167 / 167 Output Total 3300 / 3300 Balance -2942.475 / -2942.475 167 / 167 Weight last 48 hrs Weight 68.629 kg Weight 68.5 kg Weight 71 kg Weight 65 kg Physical Exam 2 Narrative: comfortable, NARD. blood pressure elevated. HEENT normocephalic atraumatic. Neck is supple lungs have crackles Heart is regular with systolic murmur. Abdomen soft positive bowel sounds. Extremities - dec b/l leg edema. Dialysis access right IJ. Neuro awake alert oriented x 3. Positive distal neuropathy Data 11/13/24 05:02 11/13/24 05:02 Micro: Microbiology 11/12/24 22:50 Blood Culture - Preliminary Blood SPECIMEN COLLECTED 11/12/24 22:45 Blood Culture - Preliminary Blood SPECIMEN COLLECTED A&P Assessment and plan 1. ESRD (end stage renal disease) on dialysis: 44-year-old man coronary artery disease status post CABG and stents, hypertension diabetes ESRD. Patient recent stent last month. Patient now here with hypertensive urgency and volume overload shortness of breath. 1. ESRD- s/p HD last night. repeat HD tomorrow 2. Hypertension - hydralazine 100 tid, losartan 25 d- can add amlodipine. 3. anemia hgb 10.8- no epo till bp improves 4. TSH 4.3 improved 5. k improved 6. resp alkalosis- h/o PE The patient was seen and examined using audiovisual equipment with the aid of a nurse. The patient consents to hemodialysis and to telehealth. Case discussed in detail with pt and RN Plan: as above PDMP PDMP Reviewed: Not Reviewed Attestations 2 Medical Necessity Statement*: htn Time Spent in Patient Care: 16 - 35 minutes (>than 50% of time sp ent in counselling and/or direct pt care on unit) . Coding Level of Care Code Acute Code for Chg Fwd Diagnoses ESRD (end stage renal disease) on dialysis N18.6; Z99.2
--- NOTE | 2024-11-13 11:50 | PHA.VACGOAL ---
Vancomycin Goal - Goal Vancomycin Goal:: 15-20 mg/L Vancomycin Indication:: Pneumonia - Therapy Day of therpy:: Day []of [] . Actual body weight (kg): 151 lb 4.8 oz - Data Labs: WBC 10.23 10^3/uL (3.29-11.43) 11/13/24 05:02 RBC 3.76 10^6/uL (3.85-5.65) L 11/13/24 05:02 Hgb 10.80 g/dL (11.27-16.99) L 11/13/24 05:02 Hct 33.2 % (37-53) L 11/13/24 05:02 MCV 88.3 fl (82-101) 11/13/24 05:02 MCH 28.7 pg (27-33) 11/13/24 05:02 MCHC 32.5 g/dL (30-55) 11/13/24 05:02 RDW 16.3 % (12.1-15.1) H 11/13/24 05:02 Sodium 137 mmol/L (136-145) 11/13/24 05:02 Potassium 3.6 mmol/L (3.5-5.1) 11/13/24 05:02 Chloride 96 mmol/L (98-107) L 11/13/24 05:02 Carbon Dioxide 22 mmol/L (22-29) 11/13/24 05:02 Anion Gap 22.6 (5-19) H 11/13/24 05:02 BUN 16 mg/dL (6-20) 11/13/24 05:02 Creatinine 2.6 mg/dL (0.7-1.2) H 11/13/24 05:02 GFR Calculation 26.8 mL/min (90-130) L 11/13/24 05:02 Treatment plan:: new consult Regimen:: iHD patient, give dose after next dialysis session
--- NOTE | 2024-11-13 16:08 | P.PN_ITS ---
Subjective 2 Subjective: overnight labs and H&P reviewed. States that he feels better with regards to his breathing at this time. Medications: Reviewed: Yes Medication Review Details: Current Medications Acetaminophen (Acetaminophen 325 Mg Tablet) 650 mg PO Q6H PRN PRN Reason: Mild/Mod Pain Or Temp >/= 101 Albuterol/Ipratropium (Ipratropium-Albuterol 3 Ml Neb) 3 ml INHALATION Q4H.RESPIRATORY [facility] Last Admin: 11/13/24 08:22 Dose: 3 ml Aspirin (Aspirin 81 Mg Ec Tablet) 81 mg PO DAILY [facility] Last Admin: 11/13/24 08:16 Dose: 81 mg Budesonide (Budesonide 0.5 Mg/2 Ml Neb) 0.5 mg INHALATION BID.RESPIRATORY [facility] Last Admin: 11/13/24 08:22 Dose: 0.5 mg Buspirone HCl (Buspirone 10 Mg Tablet) 5 mg PO TID [facility] Last Admin: 11/13/24 08:17 Dose: 5 mg Carvedilol (Carvedilol 25 Mg Tablet) 25 mg PO BID [facility] Last Admin: 11/13/24 08:17 Dose: 25 mg Clopidogrel Bisulfate (Clopidogrel 75 Mg Tablet) 75 mg PO DAILY [facility] Last Admin: 11/13/24 08:18 Dose: 75 mg Dexamethasone (Dexamethasone 10 Mg/Ml Inj) 6 mg IVP Q24H [facility] Last Admin: 11/13/24 02:01 Dose: 6 mg Glucagon (Glucagon 1 Mg/Ml Kit 1 Ml) 1 mg IM ONCE PRN; Protocol PRN Reason: Adult Acute Hypoglycemia Nursing Prot. Heparin Sodium (Porcine) (Heparin 5,000 Unit/Ml Inj 1 Ml) 0 unit IVP PRN PRN; Protocol PRN Reason: Heparin Weight Based Protocol -Subsequent Bolus Hydralazine HCl (Hydralazine 50 Mg Tablet) 100 mg PO TID [facility] Last Admin: 11/13/24 08:16 Dose: 100 mg Heparin Sodium/Sodium Chloride (Heparin Drip) 25,000 unit in 500 mls @ 0 mls/hr IV CONT [facility]; Protocol Last Titration: 11/13/24 09:43 Dose: 11.27 unit/kg/hr, 16 mls/hr Nitroglycerin/Dextrose (Nitroglycerin Drip) 50 mg in 250 mls @ 0 mls/hr IV .Q0M [facility]; Protocol Last Titration: 11/13/24 06:27 Dose: 20 mcg/min, 6 mls/hr Albumin Human (Albumin) 12.5 gm in 50 mls @ 60 mls/hr IV PRN PRN PRN Reason: Hypotension and/or symptomatic Dextrose (D5w) 500 mls @ 0 mls/hr IV ONCE PRN; Protocol PRN Reason: Adult Acute Hypoglycemia Prot Dextrose (D10w) 125 mls @ 750 mls/hr IV PRN PRN; Protocol PRN Reason: Adult Acute Hypoglycemia Nursing Protocol Dextrose (D10w) 250 mls @ 1,000 mls/hr IV PRN PRN; Protocol PRN Reason: Adult Acute Hypoglycemia Nursing Protocol Remdesivir 100 mg/ Sodium (Chloride) 100 mls @ 100 mls/hr IV Q24H [facility] Stop: 11/16/24 18:59 Vancomycin HCl / Sodium (Chloride) 250 mls @ 0 mls/hr [id number] PROTOCOL [facility]; Protocol Piperacillin Sod/Tazobactam (Sod / Sodium Chloride) 50 mls @ 0 mls/hr [id number] CONT [facility]; Protocol Piperacillin Sod/Tazobactam (Sod 2.25 gm/ Sodium Chloride) 50 mls @ 100 mls/hr IV Q12H [facility] Last Infusion: 11/13/24 06:26 Dose: Infused Losartan Potassium (Losartan 50 Mg Tablet) 25 mg PO DAILY [facility] Last Admin: 11/13/24 08:16 Dose: 25 mg Mirtazapine (Mirtazapine 15 Mg Tablet) 7.5 mg PO QPM [facility] Morphine Sulfate (Morphine 4 Mg/Ml Sdv 1 Ml) 2 mg IVP Q4H PRN PRN Reason: SEVERE PAIN Nifedipine (Nifedipine Er (24 Hr) 30 Mg Tablet) 90 mg PO DAILY [facility] Last Admin: 11/13/24 08:16 Dose: 90 mg Non-Formulary Medication (Vit B,C-Qp-Yzva-Selen-Vit D3-E [Renaplex-D]) 0 tab .ROUTE .COMPLEX [facility] Ondansetron HCl (Ondansetron 2 Mg/Ml Sdv 2 Ml) 4 mg IVP Q8H PRN PRN Reason: vomiting, or N/V if npo Pantoprazole Sodium (Pantoprazole 40 Mg Sdv) 40 mg IVP Q12H [facility] Last Admin: 11/13/24 08:17 Dose: 40 mg Ropinirole HCl (Ropinirole 0.25 Mg Tablet) 0.5 mg PO QPM [facility] Sevelamer Carbonate (Sevelamer 800 Mg Tablet) 1,600 mg PO SUPPER [facility] Sevelamer Carbonate (Sevelamer 800 Mg Tablet) 800 mg PO BID@0800,1300 [facility] Last Admin: 11/13/24 08:20 Dose: 800 mg Vancomycin HCl (Vancomycin 1,000 Mg Sdv (Pharmacy Mix)) 0 mg XX PRN PRN PRN Reason: Pharmacy to Dose Venlafaxine HCl (Venlafaxine Er (24hr) 150 Mg Capsule) 150 mg PO DAILY [facility] Last Admin: 11/13/24 08:17 Dose: 150 mg Vitals/I&O/Wt Last Vital Signs Temp 97.0 F L 11/13/24 05:09 Pulse 98 11/13/24 16:00 Resp 20 H 11/13/24 16:00 BP 162/89 11/13/24 16:00 Pulse Ox 91 11/13/24 16:00 O2 Del Method Room Air 11/13/24 15:15 O2 Flow Rate 45 11/12/24 21:11 FiO2 50 11/13/24 04:32 11/13/24 11/13/24 11/13/24 06:59 14:59 22:59 Intake Total 357.525 / 357.525 167 / 167 Output Total 3300 / 3300 Balance -2942.475 / -2942.475 167 / 167 Weight last 48 hrs Weight 68.629 kg Weight 68.5 kg Weight 71 kg Weight 65 kg Physical Exam 2 Narrative: General: No acute distress, AO x3 HEENT: PERRLA, pupils bilaterally equal and reactive, pallors not present Chest: Normal vesicular breath sounds, no added sounds, equal good air entry bilaterally CVS: S1-S2 regular, no murmurs, no tachycardia, no gallops, no rubs Abdomen: Soft, nontender, no organomegaly, bowel sounds present Neuro: No focal deficits, no facial deformity, AO x3, power 5/5 in all limbs Data 11/13/24 05:02 11/13/24 05:02 Micro: Microbiology 11/12/24 22:50 Blood Culture - Preliminary Blood SPECIMEN COLLECTED 11/12/24 22:45 Blood Culture - Preliminary Blood SPECIMEN COLLECTED A&P Assessment and plan 1. ESRD (end stage renal disease) on dialysis: 2. Acute hypoxic respiratory failure: 3. Pulmonary edema: 4. Systolic CHF: 5. Hx of CAB. Ischemic congestive cardiomyopathy: 7. Chronic hypertension: 8. NSTEMI (non-ST elevated myocardial infarction): 9. Acute hyperkalemia: 10. Healthcare-associated pneumonia: 11. COVID-19: 12. Hyperglycemia: 13. Sepsis: 14. Hypertensive emergency: Plan: Acute hypoxic respiratory failure - With evidence of moderate respiratory distress - Multifactorial - COVID-19 pneumonia - Healthcare associated pneumonia - Acute flash pulmonary edema, fluid overload, systolic CHF, ischemic cardiomyopathy -History EF of EF of 35%, severely decreased left ventricular systolic function -History of multiple subsegmental pulmonary emboli ct angio CT/CT angio chest PE protcl [id number] IMPRESSION: No definitive radiographic evidence of significant pulmonary embolism. Aortic coronary atherosclerosis. Scattered multifocal patchy opacities throughout the bilateral lungs, [id number], nonspecific although concerning for pneumonia or edema with other etiologies not excluded. Dependent changes, likely atelectasis though superimposed airspace disease from other etiologies not excluded. Plan - Admit to ICU - Monitor respiratory status closely - Continue BiPAP therapy - DuoNeb - Budesonide - Decadron - Remdesivir - Vancomycin - Zosyn - Urgent dialysis tonight - Nitroglycerin drip for hypertensive emergency - NSTEMI heparin drip - Blood cultures - Sputum culture - Full code - Heparin drip for DVT prophylaxis Sepsis - Etiology likely healthcare associated pneumonia, COVID-19 NSTEMI -With history of ischemic cardiomyopathy,'s EF of 35% History of CABG- - With recent history of cardiac stenting, PCI to ostial diagonal branch with 1 drug-eluting stent for severe in-stent restenosis, 10/15 - Continue aspirin, statin, Plavix - Heparin drip - Cardiac echo - Cardiology consulted Hypertensive emergency -With NSTEMI, acute flash pulm edema - Nitroglycerin drip Hyperglycemia - Recent A1c 5.6 - Will be on Decadron, concern for hyperglycemia - Low-dose sliding scale End-stage renal disease on dialysis - Nephrology consulted for dialysis History of pulmonary embolism, switch to heparin drip Hyperkalemia - Has received hyperkalemia protocol in the emergency room including Kayexalate, insulin - Will receive dialysis tonight November 13, 2024 Patient continues to be on a nitroglycerin drip at this time at 20 mics.States that he used to take clonidine 0.1 mg 3 times daily previously however this was discontinued after a recent cardiac procedurevibrantly to he takes clonidine only as needed. . We will resume clonidine 0.1 mg p.o. 3 times daily in an effort to wean off the nitroglycerin drip. He denies any chest pain at this time. Saturating well on room air. Continue remdesivir and dexamethasone for COVID-19 pneumonia with infiltrates bilaterally. Continue empiric antibiotics at this time. Appreciate cardiology and nephrology recommendations. PDMP PDMP Reviewed: Not Reviewed Attestations 2 Medical Necessity Statement*: Add clonidine 0.1 mg 3 times daily, attempt to wean off nitroglycerin infusion, plan dialysis tomorrow. Coding Level of Care Code Acute Code for Chg Fwd High MDM includes number and complexity of problems actively addressed during encounter, amount and/or complexity of data reviewed/ordered and described risk of complication, morbidity or mortality of management as documented Diagnoses ESRD (end stage renal disease) on dialysis N18.6; Z99.2 Acute hypoxic respiratory failure J96.01 Pulmonary edema J81.1 Systolic CHF I50.20 Hx of CABG Z95.1 Ischemic congestive cardiomyopathy I25.5; I42.0 Chronic hypertension I10 NSTEMI (non-ST elevated myocardial infarction) I21.4 Acute hyperkalemia E87.5 Healthcare-associated pneumonia J18.9 COVID-19 U07.1 Hyperglycemia R73.9 Sepsis A41.9 Hypertensive emergency I16.1
[2024-11-13 16:44] LABS: Partial Thromboplastin Time 63.5 SECONDS (23.9-36.7)
[2024-11-13] MEDS: remdesivir 100 MG in sodium chloride 0.9% (100 ml) 80 ML IV (17:50)
[2024-11-13 22:46] LABS: Hepatitis B Surface Antigen Non-Reactive (Nonreactive)
[2024-11-13 23:41] LABS: Partial Thromboplastin Time 210.2 SECONDS (23.9-36.7)
[2024-11-14] VITALS (74 sets, daily range): BP systolic 93–205; BP diastolic 56–121; PULSE 69–103; RESP 13–37; TEMP 36.3–37.7; O2SAT 89–100
--- NOTE | 2024-11-14 00:33 | PC.NURSE ---
ptt resulted at 210. Turned off Heparin GTT and notified Dr. Espinal. Given orders to recheck PTT in 4 hours.
[2024-11-14 04:46] LABS: Hematocrit 30.7 % (37-53); Hemoglobin 9.80 g/dL (11.27-16.99); Mean Corpuscular HGB Conc 31.9 g/dL (30-55); Mean Corpuscular Hemoglobin 28.0 pg (27-33); Mean Corpuscular Volume 87.7 fl (82-101); Nucleated Red Blood Cells % 0 %; Platelet Count 212 10^3/cmm (157-399); Red Blood Count 3.50 10^6/uL (3.85-5.65); White Blood Count 9.33 10^3/uL (3.29-11.43)
[2024-11-14 04:57] LABS: Partial Thromboplastin Time 36.2 SECONDS (23.9-36.7)
[2024-11-14 05:01] LABS: Alanine Aminotransferase 8 U/L (0-41); Albumin Level 3.5 g/dL (3.5-5.2); Alkaline Phosphatase 63 U/L (40-130); Anion Gap 26.3 (5-19); Aspartate Amino Transferase 14 U/L (0-40); Blood Urea Nitrogen 38 mg/dL (6-20); Calcium 9.2 mg/dL (8.5-10.5); Carbon Dioxide 20 mmol/L (22-29); Chloride 92 mmol/L (98-107); Creatinine Clr Calc Pharmacy 19.1479; Globulin 4.0 g/dL (1.3-4.6); Glucose 294 mg/dL (65-115); Magnesium 2.2 mg/dL (1.7-2.3); Osmolality Calculated 298 mOsm/kg (285-295); Potassium 4.3 mmol/L (3.5-5.1); Sodium 134 mmol/L (136-145); Total Protein 7.5 g/dL (6.6-8.7)
[2024-11-14] MEDS: heparin drip 25,000 UNIT/500 ML PREMIX 14 UNIT IV (06:20)
--- NOTE | 2024-11-14 06:53 | P.PN_ITS ---
Subjective 2 Subjective: seen and examined. feels well. he has a headache. no n/v/f/c/d/cp/sob Medications: Reviewed: Yes Medication Review Details: Current Medications Acetaminophen (Acetaminophen 325 Mg Tablet) 650 mg PO Q6H PRN PRN Reason: Mild/Mod Pain Or Temp >/= 101 Albuterol/Ipratropium (Ipratropium-Albuterol 3 Ml Neb) 3 ml INHALATION Q4H.RESPIRATORY [facility] Last Admin: 11/14/24 03:42 Dose: Not Given Aspirin (Aspirin 81 Mg Ec Tablet) 81 mg PO DAILY [facility] Last Admin: 11/13/24 08:16 Dose: 81 mg Budesonide (Budesonide 0.5 Mg/2 Ml Neb) 0.5 mg INHALATION BID.RESPIRATORY [facility] Last Admin: 11/13/24 19:52 Dose: 0.5 mg Buspirone HCl (Buspirone 10 Mg Tablet) 5 mg PO TID [facility] Last Admin: 11/13/24 20:53 Dose: 5 mg Carvedilol (Carvedilol 25 Mg Tablet) 50 mg PO TID [facility] Last Admin: 11/13/24 21:36 Dose: 50 mg Clonidine HCl (Clonidine 0.1 Mg Tablet) 0.1 mg PO TID [facility] Last Admin: 11/13/24 20:53 Dose: 0.1 mg Clopidogrel Bisulfate (Clopidogrel 75 Mg Tablet) 75 mg PO DAILY [facility] Last Admin: 11/13/24 08:18 Dose: 75 mg Dexamethasone (Dexamethasone 10 Mg/Ml Inj) 6 mg IVP Q24H [facility] Last Admin: 11/14/24 02:02 Dose: 6 mg Glucagon (Glucagon 1 Mg/Ml Kit 1 Ml) 1 mg IM ONCE PRN; Protocol PRN Reason: Adult Acute Hypoglycemia Nursing Prot. Heparin Sodium (Porcine) (Heparin 5,000 Unit/Ml Inj 1 Ml) 0 unit IVP PRN PRN; Protocol PRN Reason: Heparin Weight Based Protocol -Subsequent Bolus Heparin Sodium (Porcine) (Heparin, Porcine 1,000 Unit/Ml Inj 10 Ml) 1,000 unit IV ONCE ONE Stop: 11/14/24 09:01 Hydralazine HCl (Hydralazine 50 Mg Tablet) 100 mg PO TID [facility] Last Admin: 11/13/24 20:54 Dose: 100 mg Heparin Sodium/Sodium Chloride (Heparin Drip) 25,000 unit in 500 mls @ 0 mls/hr IV CONT [facility]; Protocol Last Admin: 11/14/24 06:20 Dose: 9.86 unit/kg/hr, 14 mls/hr Nitroglycerin/Dextrose (Nitroglycerin Drip) 50 mg in 250 mls @ 0 mls/hr IV .Q0M [facility]; Protocol Last Titration: 11/13/24 06:27 Dose: 20 mcg/min, 6 mls/hr Albumin Human (Albumin) 12.5 gm in 50 mls @ 60 mls/hr IV PRN PRN PRN Reason: Hypotension and/or symptomatic Dextrose (D5w) 500 mls @ 0 mls/hr IV ONCE PRN; Protocol PRN Reason: Adult Acute Hypoglycemia Prot Dextrose (D10w) 125 mls @ 750 mls/hr IV PRN PRN; Protocol PRN Reason: Adult Acute Hypoglycemia Nursing Protocol Dextrose (D10w) 250 mls @ 1,000 mls/hr IV PRN PRN; Protocol PRN Reason: Adult Acute Hypoglycemia Nursing Protocol Remdesivir 100 mg/ Sodium (Chloride) 100 mls @ 100 mls/hr IV Q24H [facility] Stop: 11/16/24 18:59 Last Infusion: 11/13/24 19:30 Dose: Infused Piperacillin Sod/Tazobactam (Sod 2.25 gm/ Sodium Chloride) 50 mls @ 100 mls/hr IV Q12H [facility] Last Admin: 11/14/24 02:20 Dose: Not Given Losartan Potassium (Losartan 50 Mg Tablet) 100 mg PO DAILY [facility] Mirtazapine (Mirtazapine 15 Mg Tablet) 7.5 mg PO QPM [facility] Last Admin: 11/13/24 17:18 Dose: 7.5 mg Morphine Sulfate (Morphine 4 Mg/Ml Sdv 1 Ml) 2 mg IVP Q4H PRN PRN Reason: SEVERE PAIN Nifedipine (Nifedipine Er (24 Hr) 30 Mg Tablet) 90 mg PO DAILY [facility] Last Admin: 11/13/24 08:16 Dose: 90 mg Ondansetron HCl (Ondansetron 2 Mg/Ml Sdv 2 Ml) 4 mg IVP Q8H PRN PRN Reason: vomiting, or N/V if npo Pantoprazole Sodium (Pantoprazole 40 Mg Sdv) 40 mg IVP Q12H [facility] Last Admin: 11/13/24 20:54 Dose: 40 mg Ropinirole HCl (Ropinirole 0.25 Mg Tablet) 0.5 mg PO QPM [facility] Last Admin: 11/13/24 17:18 Dose: 0.5 mg Sevelamer Carbonate (Sevelamer 800 Mg Tablet) 1,600 mg PO SUPPER [facility] Last Admin: 11/13/24 17:19 Dose: 1,600 mg Sevelamer Carbonate (Sevelamer 800 Mg Tablet) 800 mg PO BID@0800,1300 [facility] Last Admin: 11/13/24 13:46 Dose: 800 mg Vancomycin HCl (Vancomycin 1,000 Mg Sdv (Pharmacy Mix)) 0 mg XX PRN PRN PRN Reason: Pharmacy to Dose Venlafaxine HCl (Venlafaxine Er (24hr) 150 Mg Capsule) 150 mg PO DAILY [facility] Last Admin: 11/13/24 08:17 Dose: 150 mg Vitals/I&O/Wt Last Vital Signs Temp 97.0 F L 11/13/24 05:09 Pulse 93 11/14/24 05:50 Resp 29 H 11/14/24 04:22 BP 164/106 11/14/24 04:22 Pulse Ox 89 L 11/14/24 04:22 O2 Del Method Room Air 11/13/24 23:24 O2 Flow Rate 45 11/12/24 21:11 FiO2 50 11/13/24 04:32 11/13/24 11/13/24 11/14/24 14:59 22:59 06:59 Intake Total 167 / 167 551.467 / 718.467 92.533 / 811.000 Balance 167 / 167 551.467 / 718.467 92.533 / 811.000 Weight last 48 hrs Weight 68.629 kg Weight 68.5 kg Weight 71 kg Weight 65 kg Physical Exam 2 Narrative: comfortable, NARD. blood pressure elevated, but improving. HEENT normocephalic atraumatic. Neck is supple lungs have crackles Heart is regular with systolic murmur. Abdomen soft positive bowel sounds. Extremities - dec b/l leg edema. Dialysis access right IJ. Neuro awake alert oriented x 3. Positive distal neuropathy Data 11/14/24 04:25 11/14/24 04:25 Micro: Microbiology 11/12/24 22:50 Blood Culture - Preliminary Blood NEGATIVE TO DATE 11/12/24 22:45 Blood Culture - Preliminary Blood NEGATIVE TO DATE A&P Assessment and plan 1. ESRD (end stage renal disease) on dialysis: 44-year-old man coronary artery disease status post CABG and stents, hypertension diabetes ESRD. Patient recent stent last month. Patient now here with hypertensive urgency and volume overload shortness of breath. 1. ESRD- HD today- 3.5 hr, remove 3 l. 2. Hypertension - hydralazine 100 tid, losartan 25 d- can add amlodipine. would wean off clonidine 3. anemia hgb 9.8- if BP improves, then start epo 4. cardiology input appreciated The patient was seen and examined using audiovisual equipment with the aid of a nurse. The patient consents to hemodialysis and to telehealth. Case discussed in detail with pt and RN Plan: as above PDMP PDMP Reviewed: Not Reviewed Attestations 2 Medical Necessity Statement*: per hospitalist Time Spent in Patient Care: 16 - 35 minutes (>than 50% of time sp ent in counselling and/or direct pt care on unit) . Coding Level of Care Code Acute Code for Chg Fwd Diagnoses ESRD (end stage renal disease) on dialysis N18.6; Z99.2
[2024-11-14] MEDS: heparin, porcine 1,000 unit/mL INJ 10 mL 1000 UNIT IV (07:28)
[2024-11-14] MEDS: pantoprazole 40 mg SDV IVP ×2 (09:03→20:40)
[2024-11-14] MEDS: NIFEdipine ER (24 hr) 30 mg Tablet 90 MG PO (09:03)
[2024-11-14] MEDS: venlafaxine ER (24HR) 150 mg Capsule PO (09:03)
[2024-11-14 10:48] LABS: Partial Thromboplastin Time 113.7 SECONDS (23.9-36.7)
[2024-11-14] MEDS: heparin drip 25,000 UNIT/500 ML PREMIX 10 UNIT IV (13:29)
[2024-11-14] MEDS: cefTRIAXone 1,000 mg SDV 1000 MG IVP (14:27)
--- NOTE | 2024-11-14 16:36 | PM.PN ---
Subjective Subjective: The patient is doing okay. He has no chest pain. He seems to be saturating okay on room air. Telemetry shows normal sinus rhythm. No significant arrhythmias. Blood pressure is under control. Medications: Medication Review Details: Current Medications Acetaminophen (Acetaminophen 325 Mg Tablet) 650 mg PO Q6H PRN PRN Reason: Mild/Mod Pain Or Temp >/= 101 Albuterol/Ipratropium (Ipratropium-Albuterol 3 Ml Neb) 3 ml INHALATION Q4H.RESPIRATORY [facility] Last Admin: 11/14/24 16:01 Dose: 3 ml Aspirin (Aspirin 81 Mg Ec Tablet) 81 mg PO DAILY [facility] Last Admin: 11/14/24 09:02 Dose: 81 mg Budesonide (Budesonide 0.5 Mg/2 Ml Neb) 0.5 mg INHALATION BID.RESPIRATORY COUNT INCLUDES [facility] Last Admin: 11/14/24 09:16 Dose: 0.5 mg Buspirone HCl (Buspirone 10 Mg Tablet) 5 mg PO TID COUNT INCLUDES [facility] Last Admin: 11/14/24 14:27 Dose: 5 mg Carvedilol (Carvedilol 25 Mg Tablet) 50 mg PO TID COUNT INCLUDES [facility] Last Admin: 11/14/24 14:27 Dose: 50 mg Ceftriaxone Sodium (Ceftriaxone 1,000 Mg Sdv) 1,000 mg IVP Q24H COUNT INCLUDES [facility]; Protocol Last Admin: 11/14/24 14:27 Dose: 1,000 mg Clonidine HCl (Clonidine 0.1 Mg Tablet) 0.1 mg PO TID COUNT INCLUDES [facility] Last Admin: 11/14/24 14:26 Dose: 0.1 mg Clopidogrel Bisulfate (Clopidogrel 75 Mg Tablet) 75 mg PO DAILY COUNT [facility]CLUDES [facility] Last Admin: 11/14/24 09:03 Dose: 75 mg Dexamethasone (Dexamethasone 10 Mg/Ml Inj) 6 mg IVP Q24H [facility] Last Admin: 11/14/24 02:02 Dose: 6 mg Gabapentin (Gabapentin 300 Mg Capsule) 300 mg PO BEDTIME [facility] Last Admin: 11/14/24 14:27 Dose: 300 mg Glucagon (Glucagon 1 Mg/Ml Kit 1 Ml) 1 mg IM ONCE PRN; Protocol PRN Reason: Adult Acute Hypoglycemia Nursing Prot. Hydralazine HCl (Hydralazine 50 Mg Tablet) 100 mg PO TID COUNT [facility]CLUDES [facility] Last Admin: 11/14/24 14:27 Dose: 100 mg Albumin Human (Albumin) 12.5 gm in 50 mls @ 60 mls/hr IV PRN PRN PRN Reason: Hypotension and/or symptomatic Dextrose (D5w) 500 mls @ 0 mls/hr IV ONCE PRN; Protocol PRN Reason: Adult Acute Hypoglycemia Prot Dextrose (D10w) 125 mls @ 750 mls/hr IV PRN PRN; Protocol PRN Reason: Adult Acute Hypoglycemia Nursing Protocol Dextrose (D10w) 250 mls @ 1,000 mls/hr IV PRN PRN; Protocol PRN Reason: Adult Acute Hypoglycemia Nursing Protocol Remdesivir 100 mg/ Sodium (Chloride) 100 mls @ 100 mls/hr IV Q24H COUNT INCLUDES [facility] Stop: 11/16/24 18:59 Last Titration: 11/13/24 19:30 Dose: 0 mls/hr Insulin Human Lispro (Insulin Lispro 100 Unit/1 Ml) 0 unit SUBCUT WM&BEDTIME [facility]; Protocol Isosorbide Mononitrate (Isosorbide Mononitrate Er 60 Mg Tablet) 60 mg PO DAILY COUNT [facility]CLUDES [facility] Losartan Potassium (Losartan 50 Mg Tablet) 100 mg PO DAILY COUNT INCLUDES [facility] Last Admin: 11/14/24 09:04 Dose: 100 mg Mirtazapine (Mirtazapine 15 Mg Tablet) 7.5 mg PO QPM COUNT INCLUDES [facility] Last Admin: 11/13/24 17:18 Dose: 7.5 mg Morphine Sulfate (Morphine 4 Mg/Ml Sdv 1 Ml) 2 mg IVP Q4H PRN PRN Reason: SEVERE PAIN Nifedipine (Nifedipine Er (24 Hr) 30 Mg Tablet) 90 mg PO DAILY COUNT [facility]CLUDES [facility] Last Admin: 11/14/24 09:03 Dose: 90 mg Nitroglycerin (Nitroglycerin 0.1 Mg Patch) 1 patch TRANSDERMA Q24H COUNT INCLUDES [facility] Last Admin: 11/14/24 12:42 Dose: 1 patch Ondansetron HCl (Ondansetron 2 Mg/Ml Sdv 2 Ml) 4 mg IVP Q8H PRN PRN Reason: vomiting, or N/V if npo Pantoprazole Sodium (Pantoprazole 40 Mg Sdv) 40 mg IVP Q12H COUNT INCLUDES [facility] Last Admin: 11/14/24 09:03 Dose: 40 mg Ropinirole HCl (Ropinirole 0.25 Mg Tablet) 0.5 mg PO QPM COUNT INCLUDES [facility] Last Admin: 11/13/24 17:18 Dose: 0.5 mg Sevelamer Carbonate (Sevelamer 800 Mg Tablet) 1,600 mg PO SUPPER COUNT INCLUDES [facility] Last Admin: 11/13/24 17:19 Dose: 1,600 mg Sevelamer Carbonate (Sevelamer 800 Mg Tablet) 800 mg PO BID@0800,1300 COUNT [facility]CLUDES [facility] Last Admin: 11/14/24 12:43 Dose: 800 mg Venlafaxine HCl (Venlafaxine Er (24hr) 150 Mg Capsule) 150 mg PO DAILY COUNT INCLUDES [facility] Last Admin: 11/14/24 09:03 Dose: 150 mg Vitals/I&O/Wt Last Vital Signs Temp 97.3 F L 11/14/24 11:28 Pulse 80 11/14/24 16:09 Resp 19 H 11/14/24 16:00 BP 145/85 11/14/24 16:00 Pulse Ox 95 11/14/24 16:00 O2 Del Method Room Air 11/14/24 16:00 O2 Flow Rate 45 11/12/24 21:11 FiO2 50 11/13/24 04:32 11/14/24 11/14/24 11/14/24 06:59 14:59 22:59 Intake Total 92.533 / 374.801 5851.201 / 1023.201 Output Total 3300 / 3300 Balance 92.533 / 811.000 -2276.799 / -2276.799 Weight last 48 hrs Weight 146 lb 9.718 oz Weight 151 lb 4.8 oz Weight 151 lb 0.266 oz Weight 156 lb 8.451 oz Weight 143 lb 4.807 oz Physical Exam Narrative: GENERAL: The patient is alert and oriented times three. Not in any acute distress. HEENT: No significant pallor, icterus or lymphadenopathy.Oral cavity: There are no mucous membrane lesions. NECK: Trachea appears to be central. No masses noted. No JVD or thyromegaly appreciated. RESPIRATORY: Chest is symmetrical. No intercostals muscle retraction or any accessory muscle activation. There is no chest wall tenderness. Breath sounds are heard bilaterally. No rales or rhonchi heard. No evidence of any consolidation. BREASTS: Deferred. HEART: The heart sounds are normal. No S3 or S4. No significant murmurs. No pericardial rub ABDOMEN: No vessel pulsations or distention. No tenderness. No organomegaly appreciated. Bowel sounds are normally heard. : Deferred. RECTAL: Deferred. LYMPHATIC: No lymphadenopathy noted in the neck. EXTREMITIES: No edema or cyanosis. No clubbing. MUSCULOSKELETAL: No acute joint deformities or swelling SKIN: There are no significant rashes or ecchymosis NEUROPSYCHIATRIC: The patient is alert and oriented x3. Appears to be in a good mood. No tremors or rigidity noted. Data 11/14/24 04:25 11/14/24 04:25 Other Labs: Laboratory Last Values WBC 9.33 10^3/uL (3.29-11.43) 11/14/24 04:25 RBC 3.50 10^6/uL (3.85-5.65) L 11/14/24 04:25 Hgb 9.80 g/dL (11.27-16.99) L 11/14/24 04:25 Hct 30.7 % (37-53) L 11/14/24 04:25 MCV 87.7 fl (82-101) 11/14/24 04:25 MCH 28.0 pg (27-33) 11/14/24 04:25 MCHC 31.9 g/dL (30-55) 11/14/24 04:25 RDW 16.8 % (12.1-15.1) H 11/14/24 04:25 Plt Count 212 10^3/cmm (157-399) 11/14/24 04:25 MPV 9.4 fL (7.4-10.4) 11/14/24 04:25 Neut % (Auto) 91.9 % 11/14/24 04:25 Lymph % (Auto) 3.8 % 11/14/24 04:25 [place] % (Auto) 3.0 % 11/14/24 04:25 Eos % (Auto) 0.4 % 11/14/24 04:25 Baso % (Auto) 0.5 % 11/14/24 04:25 Neut # (Auto) 8.57 10^3/uL (1.8-7.7) H 11/14/24 04:25 Lymph # (Auto) 0.4 10^3/uL (0.8-4.8) L 11/14/24 04:25 [place] # (Auto) 0.3 10^3/uL (0.2-0.9) 11/14/24 04:25 Eos # (Auto) 0.0 10^3/uL (0.0-0.8) 11/14/24 04:25 Baso # (Auto) 0.1 10^3/uL (0.0-0.1) 11/14/24 04:25 Nucleated RBC % (auto) 0 % 11/14/24 04:25 Nucleated RBCs # 0.0 /100WBC 11/14/24 04:25 PT 13.70 SECONDS (12.1-14.9) 11/12/24 22:45 INR 0.98 (0.8-1.2) 11/12/24 22:45 APTT 113.7 SECONDS (23.9-36.7) H D 11/14/24 10:21 D-Dimer 1.22 ug/mLFEU (0-0.59) H 11/12/24 22:45 Specimen Type Arterial 11/12/24 19:38 Sample Site Brachial, right 11/12/24 19:38 ABG pH 7.47 (7.35-7.45) H 11/12/24 19:38 ABG pCO2 33.1 mmHg (35-45) L 11/12/24 19:38 ABG pO2 52.0 mmHg (80.0-100.0) L 11/12/24 19:38 ABG HCO3 23.8 mmol/L (22-26) 11/12/24 19:38 ABG Base Excess 0.5 mmol/L (-2.0-2.0) 11/12/24 19:38 Otoniel Test N/a 11/12/24 19:38 Hematocrit 36.7 % (42-52) L 11/12/24 19:38 O2 Delivery Device Nrb 11/12/24 19:38 O2 Liters/Min 15.0 % 11/12/24 19:38 City Magistrate ID [email or web address] 11/12/24 19:38 Sodium 134 mmol/L (136-145) L 11/14/24 04:25 Potassium 4.3 mmol/L (3.5-5.1) 11/14/24 04:25 Chloride 92 mmol/L (98-107) L 11/14/24 04:25 Carbon Dioxide 20 mmol/L (22-29) L 11/14/24 04:25 Anion Gap 26.3 (5-19) H 11/14/24 04:25 BUN 38 mg/dL (6-20) H 11/14/24 04:25 Creatinine 5.1 mg/dL (0.7-1.2) H 11/14/24 04:25 GFR Calculation 12.3 mL/min (90-130) L 11/14/24 04:25 Glucose 294 mg/dL (65-115) H 11/14/24 04:25 POC Glucose 188 mg/dL (70-110) H 11/14/24 11:28 Calculated Osmolality 298 mOsm/kg (285-295) H 11/14/24 04:25 Lactic Acid 2.2 mmol/L (0.5-2.2) 11/12/24 22:45 Lactic Acid (Sepsis) 1.1 mmol/L (0.5-2.2) 11/13/24 02:10 Calcium 9.2 mg/dL (8.5-10.5) 11/14/24 04:25 Phosphorus 4.1 mg/dL (2.5-4.5) D 11/14/24 04:25 Magnesium 2.2 mg/dL (1.7-2.3) 11/14/24 04:25 Total Bilirubin 0.5 mg/dL (0.15-1.2) 11/14/24 04:25 AST 14 U/L (0-40) 11/14/24 04:25 ALT 8 U/L (0-41) 11/14/24 04:25 Alkaline Phosphatase 63 U/L (40-130) 11/14/24 04:25 Troponin T Baseline 301 ng/L (0-15) H* 11/12/24 18:01 Troponin T 120 Minute 264.8 ng/L (0-15) H 11/12/24 19:50 Delta Troponin T -36.2 ABS# (0-10) L 11/12/24 19:50 Troponin T Hi Sens 6Hr 346.9 ng/L (0-15) H 11/13/24 00:13 Troponin T Hi Sens 6Hr Delta 45.9 ng/L (0-12) H* 11/13/24 00:13 C-Reactive Protein 26.3 mg/L (0.0-4.9) H 11/12/24 18:01 NT-Pro-B Natriuret Pep > 09843 pg/mL (0-125) H 11/13/24 05:02 Total Protein 7.5 g/dL (6.6-8.7) 11/14/24 04:25 Albumin 3.5 g/dL (3.5-5.2) 11/14/24 04:25 Globulin 4.0 g/dL (1.3-4.6) 11/14/24 04:25 Lipase 535 U/L (13-60) H 11/12/24 18:01 Procalcitonin 0.41 ng/mL (0-0.5) 11/12/24 18:01 TSH 4.31 uIU/mL (0.27-4.20) H 11/13/24 05:02 Vancomycin Trough 19.7 ug/mL (10-15) H 11/14/24 07:55 Hep Bs Antigen Non-reactive (Nonreactive) 11/12/24 18:01 Hep Bs Antibody 83.1 (11.5-1000) 11/12/24 18:01 Hepatitis C Antibody Non-reactive (Nonreactive) 11/12/24 18:01 Influenza A (PCR) Negative (Negative) 11/12/24 21:16 Influenza Type B (PCR) Negative (Negative) 11/12/24 21:16 RSV (PCR) Negative (Negative) 11/12/24 21:16 SARS-CoV-2 (PCR) Positive (Negative) A 11/12/24 21:16 Micro: Microbiology 11/12/24 22:50 Blood Culture - Preliminary Blood NEGATIVE TO DATE 11/12/24 22:45 Blood Culture - Preliminary Blood NEGATIVE TO DATE A&P Assessment and plan 1. Atherosclerosis of [place] coronary artery of [place] heart without angina pectoris: Patient status post multiple PCI's in the recent past. Currently has no chest pain. Patient had a PCI of the diagonal lesion in August and in October. Currently the EKG showed no new changes. 2. Elevated troponin: Patient has a persistent elevated troponin T since last year. There is no significant delta. I reviewed the echocardiogram. The LV ejection fraction is unchanged or if it all there maybe a slight improvement. The troponin T never trended upwards, since admission. 3. Acute pulmonary edema: Most likely this is related to the accelerated hypertension. Currently the heart failure is compensated. 4. Multiple subsegmental pulmonary emboli without acute cor pulmonale: The patient may be kept on the long-term oral anticoagulant. For myocardial standpoint, patient does not require any specific cardiac intervention at this point. May discontinue the heparin and restart the Eliquis 5. Accelerated hypertension: The blood pressure seems to be getting under control. May continue on the current management. 6. ESRD (end stage renal disease) on dialysis: Continue with hemodialysis as per schedule 7. Ischemic congestive cardiomyopathy: Patient is on a LifeVest. This may be continued. Plan: Other problems COVID-19 positive Type 2 diabetes Diabetic neuropathy Since the patient continues to remain stable, he may not require any further cardiac evaluation at this point. May continue on the current measures. May continue the as needed Lasix Since her cardiac status seems to be stable, I may sign off. Discussed with Dr. Silva Feel free to contact me with any further questions on his cardiovascular status PDMP PDMP Reviewed: Not Reviewed Attestations Medical Necessity Statement*: Possible discharge home tomorrow Coding Level of Care Code Acute Code for [facility] Fwd Diagnoses Atherosclerosis of [place] coronary artery of [place] heart without angina pectoris I25.10 Coronary Disease-Associated Artery/Lesion type: [place] artery Elevated troponin R79.89 Acute pulmonary edema J81.0 Chronicity: acute Multiple subsegmental pulmonary emboli without acute cor pulmonale I26.94 Pulmonary embolism type: multiple subsegmental (without acute cor pulmonale) Accelerated hypertension I10 ESRD (end stage renal disease) on dialysis N18.6; Z99.2 Ischemic congestive cardiomyopathy I25.5; I42.0
[2024-11-14] MEDS: remdesivir 100 MG in sodium chloride 0.9% (100 ml) 80 ML IV (17:45)
--- NOTE | 2024-11-14 22:13 | PC.NURSE ---
contacted for BP being 117/58 after giving the coreg see JUN, and with 100 of hydralzine and 0.1 clonidine being due, ordered to hold both hydralzine and the clonidine
--- NOTE | 2024-11-14 22:41 | P.PN_ITS ---
Subjective 2 Subjective: seen and examined this morning at 9 AM S/p hemodialysis today Feels better on ROom air BP ranging 180s systolic today Medications: Reviewed: Yes Medication Review Details: Current Medications Acetaminophen (Acetaminophen 325 Mg Tablet) 650 mg PO Q6H PRN PRN Reason: Mild/Mod Pain Or Temp >/= 101 Albuterol/Ipratropium (Ipratropium-Albuterol 3 Ml Neb) 3 ml INHALATION Q4H.RESPIRATORY [facility] Last Admin: 11/14/24 16:01 Dose: 3 ml Aspirin (Aspirin 81 Mg Ec Tablet) 81 mg PO DAILY [facility] Last Admin: 11/14/24 09:02 Dose: 81 mg Budesonide (Budesonide 0.5 Mg/2 Ml Neb) 0.5 mg INHALATION BID.RESPIRATORY [facility] Last Admin: 11/14/24 09:16 Dose: 0.5 mg Buspirone HCl (Buspirone 10 Mg Tablet) 5 mg PO TID [facility] Last Admin: 11/14/24 14:27 Dose: 5 mg Carvedilol (Carvedilol 25 Mg Tablet) 50 mg PO TID [facility] Last Admin: 11/14/24 14:27 Dose: 50 mg Ceftriaxone Sodium (Ceftriaxone 1,000 Mg Sdv) 1,000 mg IVP Q24H [facility]; Protocol Last Admin: 11/14/24 14:27 Dose: 1,000 mg Clonidine HCl (Clonidine 0.1 Mg Tablet) 0.1 mg PO TID [facility] Last Admin: 11/14/24 14:26 Dose: 0.1 mg Clopidogrel Bisulfate (Clopidogrel 75 Mg Tablet) 75 mg PO DAILY [facility] Last Admin: 11/14/24 09:03 Dose: 75 mg Dexamethasone (Dexamethasone 10 Mg/Ml Inj) 6 mg IVP Q24H [facility] Last Admin: 11/14/24 02:02 Dose: 6 mg Gabapentin (Gabapentin 300 Mg Capsule) 300 mg PO BEDTIME [facility] Last Admin: 11/14/24 14:27 Dose: 300 mg Glucagon (Glucagon 1 Mg/Ml Kit 1 Ml) 1 mg IM ONCE PRN; Protocol PRN Reason: Adult Acute Hypoglycemia Nursing Prot. Hydralazine HCl (Hydralazine 50 Mg Tablet) 100 mg PO TID [facility] Last Admin: 11/14/24 14:27 Dose: 100 mg Albumin Human (Albumin) 12.5 gm in 50 mls @ 60 mls/hr IV PRN PRN PRN Reason: Hypotension and/or symptomatic Dextrose (D5w) 500 mls @ 0 mls/hr IV ONCE PRN; Protocol PRN Reason: Adult Acute Hypoglycemia Prot Dextrose (D10w) 125 mls @ 750 mls/hr IV PRN PRN; Protocol PRN Reason: Adult Acute Hypoglycemia Nursing Protocol Dextrose (D10w) 250 mls @ 1,000 mls/hr IV PRN PRN; Protocol PRN Reason: Adult Acute Hypoglycemia Nursing Protocol Remdesivir 100 mg/ Sodium (Chloride) 100 mls @ 100 mls/hr IV Q24H [facility] Stop: 11/16/24 18:59 Last Titration: 11/13/24 19:30 Dose: 0 mls/hr Insulin Human Lispro (Insulin Lispro 100 Unit/1 Ml) 0 unit SUBCUT WM&BEDTIME [facility]; Protocol Isosorbide Mononitrate (Isosorbide Mononitrate Er 60 Mg Tablet) 60 mg PO DAILY [facility] Losartan Potassium (Losartan 50 Mg Tablet) 100 mg PO DAILY [facility] Last Admin: 11/14/24 09:04 Dose: 100 mg Mirtazapine (Mirtazapine 15 Mg Tablet) 7.5 mg PO QPM [facility] Last Admin: 11/13/24 17:18 Dose: 7.5 mg Morphine Sulfate (Morphine 4 Mg/Ml Sdv 1 Ml) 2 mg IVP Q4H PRN PRN Reason: SEVERE PAIN Nifedipine (Nifedipine Er (24 Hr) 30 Mg Tablet) 90 mg PO DAILY [facility] Last Admin: 11/14/24 09:03 Dose: 90 mg Nitroglycerin (Nitroglycerin 0.1 Mg Patch) 1 patch TRANSDERMA Q24H [facility] Last Admin: 11/14/24 12:42 Dose: 1 patch Ondansetron HCl (Ondansetron 2 Mg/Ml Sdv 2 Ml) 4 mg IVP Q8H PRN PRN Reason: vomiting, or N/V if npo Pantoprazole Sodium (Pantoprazole 40 Mg Sdv) 40 mg IVP Q12H [facility] Last Admin: 11/14/24 09:03 Dose: 40 mg Ropinirole HCl (Ropinirole 0.25 Mg Tablet) 0.5 mg PO QPM [facility] Last Admin: 11/13/24 17:18 Dose: 0.5 mg Sevelamer Carbonate (Sevelamer 800 Mg Tablet) 1,600 mg PO SUPPER [facility] Last Admin: 11/13/24 17:19 Dose: 1,600 mg Sevelamer Carbonate (Sevelamer 800 Mg Tablet) 800 mg PO BID@0800,1300 [facility] Last Admin: 11/14/24 12:43 Dose: 800 mg Venlafaxine HCl (Venlafaxine Er (24hr) 150 Mg Capsule) 150 mg PO DAILY [facility] Last Admin: 11/14/24 09:03 Dose: 150 mg Vitals/I&O/Wt Last Vital Signs Temp 97.8 F 11/14/24 19:45 Pulse 72 11/14/24 21:30 Resp 20 H 11/14/24 21:30 BP 117/68 11/14/24 21:30 Pulse Ox 93 11/14/24 21:30 O2 Del Method Room Air 11/14/24 20:28 O2 Flow Rate 45 11/12/24 21:11 FiO2 50 11/13/24 04:32 11/14/24 11/14/24 11/14/24 06:59 14:59 22:59 Intake Total 92.533 / 373.908 9135.201 / 1023.201 340 / 1363.201 Output Total 3300 / 3300 Balance 92.533 / 811.000 -2276.799 / -2276.799 340 / -1936.799 Weight last 48 hrs Weight 66.5 kg Weight 68.629 kg Weight 68.5 kg Weight 71 kg Physical Exam 2 Narrative: General: No acute distress, AO x3 HEENT: PERRLA, pupils bilaterally equal and reactive, pallors not present Chest: Normal vesicular breath sounds, no added sounds, equal good air entry bilaterally CVS: S1-S2 regular, no murmurs, no tachycardia, no gallops, no rubs Abdomen: Soft, nontender, no organomegaly, bowel sounds present Neuro: No focal deficits, no facial deformity, AO x3, power 5/5 in all limbs Data 11/14/24 04:25 11/14/24 04:25 Micro: Microbiology 11/12/24 22:50 Blood Culture - Preliminary Blood NEGATIVE TO DATE 11/12/24 22:45 Blood Culture - Preliminary Blood NEGATIVE TO DATE A&P Assessment and plan 1. ESRD (end stage renal disease) on dialysis: 2. Acute hypoxic respiratory failure: 3. Acute pulmonary edema: 4. Systolic CHF: 5. Hx of CAB. Ischemic congestive cardiomyopathy: 7. Chronic hypertension: 8. NSTEMI (non-ST elevated myocardial infarction): 9. Acute hyperkalemia: 10. Healthcare-associated pneumonia: 11. COVID-19: 12. Hyperglycemia: 13. Sepsis: 14. Hypertensive emergency: Plan: Acute hypoxic respiratory failure - With evidence of moderate respiratory distress - Multifactorial - COVID-19 pneumonia - Healthcare associated pneumonia - Acute flash pulmonary edema, fluid overload, systolic CHF, ischemic cardiomyopathy -History EF of EF of 35%, severely decreased left ventricular systolic function -History of multiple subsegmental pulmonary emboli ct angio CT/CT angio chest PE protcl [id number] IMPRESSION: No definitive radiographic evidence of significant pulmonary embolism. Aortic coronary atherosclerosis. Scattered multifocal patchy opacities throughout the bilateral lungs, [id number], nonspecific although concerning for pneumonia or edema with other etiologies not excluded. Dependent changes, likely atelectasis though superimposed airspace disease from other etiologies not excluded. Plan - Admit to ICU - Monitor respiratory status closely - Continue BiPAP therapy - DuoNeb - Budesonide - Decadron - Remdesivir - Vancomycin - Zosyn - Urgent dialysis tonight - Nitroglycerin drip for hypertensive emergency - NSTEMI heparin drip - Blood cultures - Sputum culture - Full code - Heparin drip for DVT prophylaxis Sepsis - Etiology likely healthcare associated pneumonia, COVID-19 NSTEMI -With history of ischemic cardiomyopathy,'s EF of 35% History of CABG- - With recent history of cardiac stenting, PCI to ostial diagonal branch with 1 drug-eluting stent for severe in-stent restenosis, 10/15 - Continue aspirin, statin, Plavix - Heparin drip - Cardiac echo - Cardiology consulted Hypertensive emergency -With NSTEMI, acute flash pulm edema - Nitroglycerin drip Hyperglycemia - Recent A1c 5.6 - Will be on Decadron, concern for hyperglycemia - Low-dose sliding scale End-stage renal disease on dialysis - Nephrology consulted for dialysis History of pulmonary embolism, switch to heparin drip Hyperkalemia - Has received hyperkalemia protocol in the emergency room including Kayexalate, insulin - Will receive dialysis tonight November 13, 2024 Patient continues to be on a nitroglycerin drip at this time at 20 mics.States that he used to take clonidine 0.1 mg 3 times daily previously however this was discontinued after a recent cardiac procedurevibrantly to he takes clonidine only as needed. . We will resume clonidine 0.1 mg p.o. 3 times daily in an effort to wean off the nitroglycerin drip. He denies any chest pain at this time. Saturating well on room air. Continue remdesivir and dexamethasone for COVID-19 pneumonia with infiltrates bilaterally. Continue empiric antibiotics at this time. Appreciate cardiology and nephrology recommendations. November 14, 2024 Off nitroglycerin drip since overnight. SBP ranging 180s today. Will adjust antihypertensives. Increase clonidine to 0.2mg TID, continue nifedipine, hydralazine, losartan. Plan to add imdur if needed. S/p dislaysi today. Continue remdisivir and dexamethasone for Covid 19 pneumonia. Narrow abx from zosyn/vanc to ceftriaxone 1 g iv every 24 h PDMP PDMP Reviewed: Not Reviewed Attestations 2 Medical Necessity Statement*: continued adjustment of antihypertensives, dialysis today Coding Level of Care Code Acute Code for [facility] Fwd High MDM includes number and complexity of problems actively addressed during encounter, amount and/or complexity of data reviewed/ordered and described risk of complication, morbidity or mortality of management as documented Diagnoses ESRD (end stage renal disease) on dialysis N18.6; Z99.2 Acute hypoxic respiratory failure J96.01 Acute pulmonary edema J81.0 Chronicity: acute Systolic CHF I50.20 Hx of CABG Z95.1 Ischemic congestive cardiomyopathy I25.5; I42.0 Chronic hypertension I10 NSTEMI (non-ST elevated myocardial infarction) I21.4 Acute hyperkalemia E87.5 Healthcare-associated pneumonia J18.9 COVID-19 U07.1 Hyperglycemia R73.9 Sepsis A41.9 Hypertensive emergency I16.1
[2024-11-15] VITALS: BP 132/80; PULSE 74; RESP 22
[2024-11-15 03:49] LABS: Alanine Aminotransferase 8 U/L (0-41); Albumin Level 3.4 g/dL (3.5-5.2); Alkaline Phosphatase 55 U/L (40-130); Blood Urea Nitrogen 26 mg/dL (6-20); Calcium 9.2 mg/dL (8.5-10.5); Carbon Dioxide 25 mmol/L (22-29); Chloride 98 mmol/L (98-107); Creatinine Clr Calc Pharmacy 26.0893; Globulin 3.8 g/dL (1.3-4.6); Glucose 224 mg/dL (65-115); Magnesium 2.3 mg/dL (1.7-2.3); Osmolality Calculated 300 mOsm/kg (285-295); Sodium 139 mmol/L (136-145); Total Protein 7.2 g/dL (6.6-8.7)
[2024-11-15 03:55] LABS: Anion Gap 20.0 (5-19); Aspartate Amino Transferase 16 U/L (0-40); Potassium 4.0 mmol/L (3.5-5.1)
[2024-11-15 04:00] VITALS: BP 125/73; PULSE 76; RESP 23; TEMP 37.1; O2SAT 96
[2024-11-15 07:41] VITALS: BP 152/93; PULSE 88; RESP 15; TEMP 36.7; O2SAT 93
[2024-11-15 08:00] VITALS: PULSE 100; RESP 16
[2024-11-15 08:32] VITALS: PULSE 100; RESP 16; O2SAT 95
[2024-11-15] MEDS: pantoprazole 40 mg SDV IVP (09:05)
[2024-11-15] MEDS: NIFEdipine ER (24 hr) 30 mg Tablet 90 MG PO (09:06)
[2024-11-15] MEDS: venlafaxine ER (24HR) 150 mg Capsule PO (09:07)
--- NOTE | 2024-11-15 09:48 | PM.PN ---
Subjective Subjective: Patient seen and examined. No nausea vomiting shortness of breath or chest pain no headaches. Feels well wants to go home Medications: Reviewed: Yes Medication Review Details: Current Medications Acetaminophen (Acetaminophen 325 Mg Tablet) 650 mg PO Q6H PRN PRN Reason: Mild/Mod Pain Or Temp >/= 101 Albuterol/Ipratropium (Ipratropium-Albuterol 3 Ml Neb) 3 ml INHALATION Q4H.RESPIRATORY JAQUELINE Last Admin: 11/15/24 08:31 Dose: 3 ml Apixaban (Apixaban 5 Mg Tablet) 5 mg PO BID@0900,2100 JAQUELINE Last Admin: 11/15/24 09:06 Dose: 5 mg Aspirin (Aspirin 81 Mg Ec Tablet) 81 mg PO DAILY JAQUELINE Last Admin: 11/15/24 09:06 Dose: 81 mg Budesonide (Budesonide 0.5 Mg/2 Ml Neb) 0.5 mg INHALATION BID.RESPIRATORY JAQUELINE Last Admin: 11/15/24 08:31 Dose: 0.5 mg Buspirone HCl (Buspirone 10 Mg Tablet) 5 mg PO TID JAQUELINE Last Admin: 11/15/24 09:07 Dose: 5 mg Carvedilol (Carvedilol 25 Mg Tablet) 50 mg PO BID JAQUELINE Last Admin: 11/15/24 09:06 Dose: 50 mg Ceftriaxone Sodium (Ceftriaxone 1,000 Mg Sdv) 1,000 mg IVP Q24H [facility]; Protocol Last Admin: 11/14/24 14:27 Dose: 1,000 mg Clonidine HCl (Clonidine 0.1 Mg Tablet) 0.1 mg PO TID JAQUELINE On Hold: 11/14/24 22:40 Last Admin: 11/14/24 22:13 Dose: Not Given Clopidogrel Bisulfate (Clopidogrel 75 Mg Tablet) 75 mg PO DAILY JAQUELINE Last Admin: 11/15/24 09:06 Dose: 75 mg Dexamethasone (Dexamethasone 10 Mg/Ml Inj) 6 mg IVP Q24H JAQUELINE Last Admin: 11/15/24 01:12 Dose: 6 mg Gabapentin (Gabapentin 300 Mg Capsule) 300 mg PO BEDTIME JAQUELINE Last Admin: 11/14/24 20:39 Dose: 300 mg Glucagon (Glucagon 1 Mg/Ml Kit 1 Ml) 1 mg IM ONCE PRN; Protocol PRN Reason: Adult Acute Hypoglycemia Nursing Prot. Hydralazine HCl (Hydralazine 50 Mg Tablet) 75 mg PO TID [facility] Last Admin: 11/15/24 09:05 Dose: 75 mg Albumin Human (Albumin) 12.5 gm in 50 mls @ 60 mls/hr IV PRN PRN PRN Reason: Hypotension and/or symptomatic Dextrose (D5w) 500 mls @ 0 mls/hr IV ONCE PRN; Protocol PRN Reason: Adult Acute Hypoglycemia Prot Dextrose (D10w) 125 mls @ 750 mls/hr IV PRN PRN; Protocol PRN Reason: Adult Acute Hypoglycemia Nursing Protocol Dextrose (D10w) 250 mls @ 1,000 mls/hr IV PRN PRN; Protocol PRN Reason: Adult Acute Hypoglycemia Nursing Protocol Remdesivir 100 mg/ Sodium (Chloride) 100 mls @ 100 mls/hr IV Q24H [facility] Stop: 11/16/24 18:59 Last Infusion: 11/14/24 19:09 Dose: Infused Insulin Human Lispro (Insulin Lispro 100 Unit/1 Ml) 0 unit SUBCUT WM&BEDTIME [facility]; Protocol Last Admin: 11/15/24 08:16 Dose: Not Given Isosorbide Mononitrate (Isosorbide Mononitrate Er 60 Mg Tablet) 60 mg PO DAILY [facility] Last Admin: 11/15/24 09:06 Dose: 60 mg Losartan Potassium (Losartan 50 Mg Tablet) 100 mg PO DAILY [facility] Last Admin: 11/15/24 09:06 Dose: 100 mg Mirtazapine (Mirtazapine 15 Mg Tablet) 7.5 mg PO QPM [facility] Last Admin: 11/14/24 17:45 Dose: 7.5 mg Morphine Sulfate (Morphine 4 Mg/Ml Sdv 1 Ml) 2 mg IVP Q4H PRN PRN Reason: SEVERE PAIN Nifedipine (Nifedipine Er (24 Hr) 30 Mg Tablet) 90 mg PO DAILY [facility] Last Admin: 11/15/24 09:06 Dose: 90 mg Nitroglycerin (Nitroglycerin 0.1 Mg Patch) 1 patch TRANSDERMA Q24H [facility] Last Admin: 11/14/24 12:42 Dose: 1 patch Ondansetron HCl (Ondansetron 2 Mg/Ml Sdv 2 Ml) 4 mg IVP Q8H PRN PRN Reason: vomiting, or N/V if npo Pantoprazole Sodium (Pantoprazole 40 Mg Sdv) 40 mg IVP Q12H [facility] Last Admin: 11/15/24 09:05 Dose: 40 mg Ropinirole HCl (Ropinirole 0.25 Mg Tablet) 0.5 mg PO QPM [facility] Last Admin: 11/14/24 17:45 Dose: 0.5 mg Sevelamer Carbonate (Sevelamer 800 Mg Tablet) 1,600 mg PO SUPPER [facility] Last Admin: 11/14/24 17:45 Dose: 1,600 mg Sevelamer Carbonate (Sevelamer 800 Mg Tablet) 800 mg PO BID@0800,1300 [facility] Last Admin: 11/15/24 09:05 Dose: 800 mg Venlafaxine HCl (Venlafaxine Er (24hr) 150 Mg Capsule) 150 mg PO DAILY [facility] Last Admin: 11/15/24 09:07 Dose: 150 mg Vitals/I&O/Wt Last Vital Signs Temp 98.1 F 11/15/24 07:41 Pulse 100 11/15/24 08:32 Resp 16 11/15/24 08:32 BP 152/93 11/15/24 07:41 Pulse Ox 95 11/15/24 08:32 O2 Del Method Room Air 11/15/24 08:32 O2 Flow Rate 45 11/12/24 21:11 FiO2 50 11/13/24 04:32 11/14/24 11/15/24 11/15/24 22:59 06:59 14:59 Intake Total 460 / 1483.201 Balance 460 / -1816.799 Weight last 48 hrs Weight 66.5 kg Physical Exam Narrative: comfortable, NARD. Vital signs noted. HEENT normocephalic atraumatic. Neck is supple lungs are clear bilateral Heart is regular with systolic murmur. Abdomen soft positive bowel sounds. Extremities -no b/l leg edema. Dialysis access right IJ. Neuro awake alert oriented x 3. Positive distal neuropathy Data 11/14/24 04:25 11/15/24 02:38 A&P Assessment and plan 1. ESRD (end stage renal disease) on dialysis: 44-year-old man coronary artery disease status post CABG and stents, hypertension diabetes ESRD. Patient recent stent last month. Patient now here with hypertensive urgency and volume overload shortness of breath. 1. ESRD- HD Tuesday. Did well with dialysis yesterday. Can have repeat dialysis tomorrow either at his outpatient center or if he is here we will dialyze him in house. 2. Hypertension -improving continue to decrease weight on dialysis continue current blood pressure medications. 3. anemia hgb 9.8-can give Epogen with dialysis 4. Pneumonia patient being treated both for COVID and bacterial pneumonia currently on ceftriaxone. 5. cardiology input appreciated Renal is okay with discharge and outpatient dialysis tomorrow. The patient was seen and examined using audiovisual equipment with the aid of a nurse. The patient consents to hemodialysis and to telehealth. Case discussed in detail with pt and RN Plan: as above PDMP PDMP Reviewed: Not Reviewed Attestations Medical Necessity Statement*: Per hospitalist. Time Spent in Patient Care: 16 - 35 minutes (>than 50% of time spent in counselling and/or direct pt care on unit). Coding Level of Care Code Acute Code for Chg Fwd Diagnoses ESRD (end stage renal disease) on dialysis N18.6; Z99.2
--- NOTE | 2024-11-15 17:34 | P.DS_ITS ---
Discharge Providers Date of Admission: 11/12/24 21:39 Date of Discharge: December 03, 2024 Attending Provider at Admission: Canelo Fox MD Attending Provider at Discharge: Loreta Silva MD Primary Care Provider: Yaniv Moe MD Diagnoses at Discharge Discharge Diagnosis 1. ESRD (end stage renal disease) on dialysis: 2. COVID-19: 3. Hypertensive urgency: 4. Ischemic congestive cardiomyopathy: 5. Elevated troponin: 6. Multiple subsegmental pulmonary emboli without acute cor pulmonale: Reason for Visit Reason for Visit: BP High Hospital Course Hospital Course Jose Guadalupe Claudio is a 44 year old male with multiple medical problems including atherosclerotic heart disease, coronary bypass surgery x 4, status post recent PCIs in August and October of this year who presented to the emergency room with uncontrolled blood pressure. He went into acute pulmonary edema while being in the emergency room. He was placed on a BiPAP and subsequently got admitted to the hospital for further evaluation management. His baseline troponin T was elevated. Cardiology service was consulted, troponins were likely elevated related to known CKD. He was treated with nitro drip initially, thereafter titrated off when overlapped with oral medications. His anti hypertensives were adjusted and he discharged today in stable condition. He tested positive for COVID 19 during the admission and received treatment iwth anti virakls and steroids. Physical Exam Narrative: General: No acute distress, AO x3 HEENT: PERRLA, pupils bilaterally equal and reactive, pallors not present Chest: Normal vesicular breath sounds, no added sounds, equal good air entry bilaterally CVS: S1-S2 regular, no murmurs, no tachycardia, no gallops, no rubs Abdomen: Soft, nontender, no organomegaly, bowel sounds present Neuro: No focal deficits, no facial deformity, AO x3, power 5/5 in all limbs Discharge Data Studies Completed and Pending Completed Studies During Hospitalization Category Date Time Status CT angio chest PE protcl [id number] Stat Cat Scan 11/12/24 21:47 Completed XR chest 1V portable [id number] Stat Exams 11/12/24 19:32 Completed CV. echo complete* [id number] Stat Ultrasound 11/12/24 22:20 Completed Radiology Impressions Chest X-Ray 11/12/24 19:32 IMPRESSION: Improvement in appearance of patchy multifocal opacities suggesting improvement or resolution of prior pneumonia. Chest CTA 11/12/24 21:47 IMPRESSION: No definitive radiographic evidence of significant pulmonary embolism. Aortic coronary atherosclerosis. Scattered multifocal patchy opacities throughout the bilateral lungs, febet-[id number]-[id number]-left, nonspecific although concerning for pneumonia or edema with other etiologies not excluded. Dependent changes, likely atelectasis though superimposed airspace disease from other etiologies not excluded. Laboratory Results WBC 9.33 10^3/uL (3.29-11.43) 11/14/24 04:25 RBC 3.50 10^6/uL (3.85-5.65) L 11/14/24 04:25 Hgb 9.80 g/dL (11.27-16.99) L 11/14/24 04:25 Hct 30.7 % (37-53) L 11/14/24 04:25 MCV 87.7 fl (82-101) 11/14/24 04:25 MCH 28.0 pg (27-33) 11/14/24 04:25 MCHC 31.9 g/dL (30-55) 11/14/24 04:25 RDW 16.8 % (12.1-15.1) H 11/14/24 04:25 Plt Count 212 10^3/cmm (157-399) 11/14/24 04:25 MPV 9.4 fL (7.4-10.4) 11/14/24 04:25 Neut % (Auto) 91.9 % 11/14/24 04:25 Lymph % (Auto) 3.8 % 11/14/24 04:25 Petroleum % (Auto) 3.0 % 11/14/24 04:25 Eos % (Auto) 0.4 % 11/14/24 04:25 Baso % (Auto) 0.5 % 11/14/24 04:25 Neut # (Auto) 8.57 10^3/uL (1.8-7.7) H 11/14/24 04:25 Lymph # (Auto) 0.4 10^3/uL (0.8-4.8) L 11/14/24 04:25 Petroleum # (Auto) 0.3 10^3/uL (0.2-0.9) 11/14/24 04:25 Eos # (Auto) 0.0 10^3/uL (0.0-0.8) 11/14/24 04:25 Baso # (Auto) 0.1 10^3/uL (0.0-0.1) 11/14/24 04:25 Nucleated RBC % (auto) 0 % 11/14/24 04:25 Nucleated RBCs # 0.0 /100WBC 11/14/24 04:25 PT 13.70 SECONDS (12.1-14.9) 11/12/24 22:45 INR 0.98 (0.8-1.2) 11/12/24 22:45 APTT 113.7 SECONDS (23.9-36.7) H D 11/14/24 10:21 D-Dimer 1.22 ug/mLFEU (0-0.59) H 11/12/24 22:45 Specimen Type Arterial 11/12/24 19:38 Sample Site Brachial, right 11/12/24 19:38 ABG pH 7.47 (7.35-7.45) H 11/12/24 19:38 ABG pCO2 33.1 mmHg (35-45) L 11/12/24 19:38 ABG pO2 52.0 mmHg (80.0-100.0) L 11/12/24 19:38 ABG HCO3 23.8 mmol/L (22-26) 11/12/24 19:38 ABG Base Excess 0.5 mmol/L (-2.0-2.0) 11/12/24 19:38 Otoniel Test N/a 11/12/24 19:38 Hematocrit 36.7 % (42-52) L 11/12/24 19:38 O2 Delivery Device Nrb 11/12/24 19:38 O2 Liters/Min 15.0 % 11/12/24 19:38 Certified Low Vision Therapist ID [id number] 11/12/24 19:38 Sodium 139 mmol/L (136-145) 11/15/24 02:38 Potassium 4.0 mmol/L (3.5-5.1) 11/15/24 02:38 Chloride 98 mmol/L (98-107) 11/15/24 02:38 Carbon Dioxide 25 mmol/L (22-29) 11/15/24 02:38 Anion Gap 20.0 (5-19) H 11/15/24 02:38 BUN 26 mg/dL (6-20) H 11/15/24 02:38 Creatinine 3.7 mg/dL (0.7-1.2) H 11/15/24 02:38 GFR Calculation 17.9 mL/min (90-130) L 11/15/24 02:38 Glucose 224 mg/dL (65-115) H 11/15/24 02:38 POC Glucose 125 mg/dL (70-110) H 11/15/24 08:14 Calculated Osmolality 300 mOsm/kg (285-295) H 11/15/24 02:38 Lactic Acid 2.2 mmol/L (0.5-2.2) 11/12/24 22:45 Lactic Acid (Sepsis) 1.1 mmol/L (0.5-2.2) 11/13/24 02:10 Calcium 9.2 mg/dL (8.5-10.5) 11/15/24 02:38 Phosphorus 4.6 mg/dL (2.5-4.5) H 11/15/24 02:38 Magnesium 2.3 mg/dL (1.7-2.3) 11/15/24 02:38 Total Bilirubin 0.4 mg/dL (0.15-1.2) 11/15/24 02:38 AST 16 U/L (0-40) 11/15/24 02:38 ALT 8 U/L (0-41) 11/15/24 02:38 Alkaline Phosphatase 55 U/L (40-130) 11/15/24 02:38 Troponin T Baseline 301 ng/L (0-15) H* 11/12/24 18:01 Troponin T 120 Minute 264.8 ng/L (0-15) H 11/12/24 19:50 Delta Troponin T -36.2 ABS# (0-10) L 11/12/24 19:50 Troponin T Hi Sens 6Hr 346.9 ng/L (0-15) H 11/13/24 00:13 Troponin T Hi Sens 6Hr Delta 45.9 ng/L (0-12) H* 11/13/24 00:13 C-Reactive Protein 26.3 mg/L (0.0-4.9) H 11/12/24 18:01 NT-Pro-B Natriuret Pep > 56364 pg/mL (0-125) H 11/13/24 05:02 Total Protein 7.2 g/dL (6.6-8.7) 11/15/24 02:38 Albumin 3.4 g/dL (3.5-5.2) L 11/15/24 02:38 Globulin 3.8 g/dL (1.3-4.6) 11/15/24 02:38 Lipase 535 U/L (13-60) H 11/12/24 18:01 Procalcitonin 0.41 ng/mL (0-0.5) 11/12/24 18:01 TSH 4.31 uIU/mL (0.27-4.20) H 11/13/24 05:02 Vancomycin Trough 19.7 ug/mL (10-15) H 11/14/24 07:55 Hep Bs Antigen Non-reactive (Nonreactive) 11/12/24 18:01 Hep Bs Antibody 83.1 (11.5-1000) 11/12/24 18:01 Hepatitis C Antibody Non-reactive (Nonreactive) 11/12/24 18:01 Influenza A (PCR) Negative (Negative) 11/12/24 21:16 Influenza Type B (PCR) Negative (Negative) 11/12/24 21:16 RSV (PCR) Negative (Negative) 11/12/24 21:16 SARS-CoV-2 (PCR) Positive (Negative) A 11/12/24 21:16 Vitals Last Vital Signs Temp 98.1 F 11/15/24 07:41 Pulse 100 11/15/24 08:32 Resp 16 11/15/24 08:32 BP 152/93 11/15/24 07:41 Pulse Ox 95 11/15/24 08:32 O2 Del Method Room Air 11/15/24 08:32 O2 Flow Rate 45 11/12/24 21:11 FiO2 50 11/13/24 04:32 Discharge Plan Discharge Patient Disposition: Home Condition: Stable Prescriptions: New isosorbide mononitrate 30 mg tablet extended release 24 hr 30 mg PO DAILY Qty: 30 0RF Continued buspirone 5 mg tablet 5 mg PO TID loperamide 2 mg capsule See Rx Instructions .ROUTE .COMPLEX Rx Instructions: TAKE 1 CAPSULE BY MOUTH IN THE MORNING AND 3 IN THE EVENING venlafaxine 150 mg capsule,extended release 24hr 150 mg PO DAILY hydralazine 100 mg tablet 100 mg PO TID pantoprazole 40 mg tablet,delayed release (DR/EC) 40 mg PO DAILY ropinirole 0.5 mg tablet 0.5 mg PO QPM mirtazapine 15 mg tablet 7.5 mg PO QPM sevelamer carbonate 800 mg tablet See Rx Instructions .ROUTE .COMPLEX Rx Instructions: TAKE 2 TABLETS BY MOUTH WITH THE LARGEST MEAL OF THE DAY AND 1 TABLET WITH OTHER MEALS (4 TABLETS TOTAL PER DAY) sodium bicarbonate 325 mg tablet 325 mg PO DAILY PRN (Reason: Stomach ACID) clonidine HCl 0.3 mg tablet 0.3 mg PO TID PRN (Reason: bp) clopidogrel 75 mg Tablet 75 mg PO DAILY 30 Days Qty: 30 2RF RenaPlex-D 800 mcg-12.5 mg -2,000 unit tablet See Rx Instructions .ROUTE .COMPLEX Rx Instructions: TAKE 1 TABLET BY MOUTH EVERY DAY (ON DIALYSIS DAYS, TAKE AFTER DIALYSIS TREATMENT) Eliquis 5 mg Tablet 5 mg PO BID@0900,2100 Qty: 60 0RF losartan 50 mg tablet 100 mg PO DAILY megestrol 400 mg/10 mL (40 mg/mL) suspension 400 mg PO DAILY insulin lispro 100 unit/mL insulin pen 15 unit SUBCUT TID Changed carvedilol 25 mg tablet 50 mg PO BID 30 Days Qty: 120 0RF Discontinued lisinopril 20 mg tablet 20 mg PO DAILY amlodipine 5 mg tablet 5 mg PO QPM warfarin 5 mg tablet 5 mg PO DAILY No Action amlodipine 5 mg tablet 5 mg PO DAILY gabapentin 300 mg capsule 300 mg PO BEDTIME Discharge Order = DC NOW: Discharge Order (Routine); Ordered 11/15/24 Ordered By: Loreta Silva Referrals: Yaniv Moe MD [Primary Care Provider, Family Practice] - 11/21/24 2:30 pm Referral Note: You have an appointment with Dr. Moe on 11/21 at 2:30pm. Patient Instructions: Prednisone (By mouth) (Prednisone Intensol, Prednicot, Deltasone, Rebeca), Isosorbide Mononitrate (By mouth) (Imdur, Imdur ER, Ismo), Nirmatrelvir/Ritonavir (By mouth) (Paxlovid), Hypertensive Crisis (DC), Diabetic Hyperglycemia (DC), COVID-19 (Coronavirus Disease 2019) (DC), Opioid Safety, Patient Portal & Galindo Instructions Discharge Attestations Time Spent in Discharge Care*: greater than 30 min Status at Discharge: Cognitive status at discharge: cognitively intact , Behavioral status at discharge: cooperative , Quality Metrics Clinical Quality Measures [ No reported AMI, CVA or VTE this stay] Coding Level of Care Code Acute Code for Chg Fwd Diagnoses ESRD (end stage renal disease) on dialysis N18.6; Z99.2 COVID-19 U07.1 Hypertensive urgency I16.0 Ischemic congestive cardiomyopathy I25.5; I42.0 Elevated troponin R79.89 Multiple subsegmental pulmonary emboli without acute cor pulmonale I26.94 Pulmonary embolism type: multiple subsegmental (without acute cor pulmonale)
== END 2024-11-15 11:45 | disposition home or self-care (01) | DRG 177 ==
LOC: ER 21:51 → ICU 22:29 → CSU 11-14 22:17
PROVIDERS: Emergency Medicine; Internal Medicine Nephrology; Admitting Provider Family Medicine; Emergency Provider Physician Assistant; PCP Family Medicine; Visit Provider Student in an Organized Health Care Education/Training Program
DX: U07.1 COVID-19 (principal); I26.94 Multiple subsegmental thrombotic pulmonary emboli without acute cor pulmonale; N18.6 End stage renal disease; J18.9 Pneumonia, unspecified organism; J96.01 Acute respiratory failure with hypoxia; I13.2 Hypertensive heart and chronic kidney disease with heart failure and with stage 5 chronic kidney disease, or end stage renal disease; I50.20 Unspecified systolic (congestive) heart failure; E11.22 Type 2 diabetes mellitus with diabetic chronic kidney disease; Z99.2 Dependence on renal dialysis; I16.0 Hypertensive urgency; I25.5 Ischemic cardiomyopathy; I25.10 Atherosclerotic heart disease of native coronary artery without angina pectoris; Y95 Nosocomial condition; I95.9 Hypotension, unspecified; E87.5 Hyperkalemia; D63.1 Anemia in chronic kidney disease; F32.A Depression, unspecified; G25.81 Restless legs syndrome; E11.42 Type 2 diabetes mellitus with diabetic polyneuropathy; E11.65 Type 2 diabetes mellitus with hyperglycemia; I25.2 Old myocardial infarction; Z95.1 Presence of aortocoronary bypass graft; Z95.5 Presence of coronary angioplasty implant and graft; Z79.01 Long term (current) use of anticoagulants; Z79.02 Long term (current) use of antithrombotics/antiplatelets; Z79.4 Long term (current) use of insulin; Z82.49 Family history of ischemic heart disease and other diseases of the circulatory system; Z87.01 Personal history of pneumonia (recurrent); Z86.14 Personal history of Methicillin resistant Staphylococcus aureus infection; Z87.891 Personal history of nicotine dependence
CPT/HCPCS: 36415; 36416; 36600; 71045; 71275; 80053; 80202; 82803; 82962; 83605; 83690; 83735; 83880; 84100; 84145; 84443; 84484; 85025; 85378; 85610; 85730; 86140; 86706; 86803; 87040; 87340; 87637; 90935; 93005; 93306; 94640; 94660; 94664; 96365; 96366; 96367; 96372; 96375; 99285; J0248; J0696; J1100; J1644; J1815; J2470; J2543; J3373; J3490; J7626; J7799; J9999

== ENCOUNTER 2024-12-03 07:32 | Inpatient (IN) | payer MEDICARE, SELFPAY ==
[2024-12-03] VITALS (64 sets, daily range): BP systolic 91–220; BP diastolic 67–123; PULSE 70–98; RESP 4–34; TEMP 36.8–37.1; O2SAT 69–100
--- NOTE | 2024-12-03 07:31 | XR_ITS ---
WS: [id number] Exam: XR chest 1V portable [id number] Date/Time of Exam: 12/03/2024 7:31 AM Reason For Exam: dyspnea/cough Comparison 11/12/2024. Minimal residual infiltrate in the mid RIGHT lung. Remaining lung amado have cleared. There is hyperinflation. Normal cardiomediastinal silhouette. RIGHT subclavian double lumen dialysis catheter in good position. Status post CABG surgery. No pleural effusions or pneumothorax. Old proximal LEFT humeral fracture. XR/XR chest 1V portable [id number] IMPRESSION: 1. Mild residual infiltrate in the mid RIGHT lung. Remaining lung amado are cl ear. 2. Pulmonary hyperinflation, chronic interstitial changes.
--- NOTE | 2024-12-03 07:32 | ECG_ITS ---
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 Measurements Intervals [place] Rate: 86 P: 57 NV: 157 QRS: 40 QRSD: 103 T: 55 QT: 397 QTc: 477 Interpretive Statements SINUS RHYTHM POSSIBLE LEFT ATRIAL ENLARGEMENT [-0.1mV P-WAVE IN V1/V2] NONSPECIFIC ST & T-WAVE ABNORMALITY Compared to ECG 11/13/2024 00:44:47 T-wave abnormality now present Myocardial infarct finding no longer present Electronically Signed On 12-04-2024 08:08:45 CDT by Ursula Lyn M.D. [email or web address]
--- NOTE | 2024-12-03 07:36 | W.ED.GENADLT ---
HPI - General Adult General: Chief complaint: Shortness of Breath/Dyspnea Stated complaint: SOB - weakness History of Present Illness: 44-year-old male with a history of end-stage renal disease diabetes mellitus history of ischemic cardiomyopathy and coronary artery disease presents emergency room complaining of shortness of breath. Patient is severely hypertensive head O2 sats 60% on room air in the field is the low 70s on arrival here in mid 70s with nonrebreather mask. Patient denies chest pain at this time he does receive dialysis Tuesdays and Saturdays he did not miss any dialysis recently. Associated symptoms: Reports dyspnea; Deny chest pain or rash Related Data Home Medications ?Medication ?Instructions ?Recorded ?Confirmed buspirone 5 mg tablet 5 mg PO TID 06/09/24 11/13/24 hydralazine 100 mg tablet 100 mg PO TID 06/09/24 11/13/24 loperamide 2 mg capsule See Rx Instructions .Route .COMPLEX 06/09/24 11/13/24 mirtazapine 15 mg tablet 7.5 mg PO QPM 06/09/24 11/13/24 pantoprazole 40 mg tablet,delayed 40 mg PO DAILY 06/09/24 11/13/24 release ropinirole 0.5 mg tablet 0.5 mg PO QPM 06/09/24 11/13/24 sevelamer carbonate 800 mg tablet See Rx Instructions .Route .COMPLEX 06/09/24 11/13/24 venlafaxine 150 mg 150 mg PO DAILY 06/09/24 11/13/24 capsule,extended release 24 hr sodium bicarbonate 325 mg tablet 325 mg PO DAILY PRN Stomach ACID 09/19/24 11/13/24 vit B,C-folic ac 800 mcg-zinc 12.5 See Rx Instructions .Route .COMPLEX 10/13/24 11/13/24 mg-selen-D3 2,000 unit-vit E tablet (RenaPlex-D) clonidine HCl 0.3 mg tablet 0.3 mg PO TID PRN bp 10/29/24 11/13/24 calcitriol 0.25 mcg capsule 0.75 mcg PO DAILY 11/13/24 11/13/24 insulin lispro 100 unit/mL 15 unit SUBCUT TID 11/13/24 11/13/24 subcutaneous pen losartan 50 mg tablet 100 mg PO DAILY 11/13/24 11/13/24 megestrol 400 mg/10 mL (40 mg/mL) 400 mg PO BID 11/13/24 11/13/24 oral suspension gabapentin 300 mg tablet 300 mg PO DAILY 11/14/24 11/14/24 Previous Rx's ?Medication ?Instructions ?Recorded clopidogrel 75 mg tablet 75 mg PO DAILY 30 days #30 tabs 08/22/24 apixaban 5 mg tablet (Eliquis) 5 mg PO BID@0900,2100 #60 tabs 10/18/24 carvedilol 25 mg tablet 50 mg (2 x 25 mg) PO BID 30 days 11/15/24 #120 tabs isosorbide mononitrate 30 mg 30 mg PO DAILY #30 tabs 11/15/24 tablet,extended release 24 hr nirmatrelvir 150 mg (10)-ritonavir See Rx Instructions PO .COMPLEX 11/15/24 100 mg (10) tablets in a dose pack #20 ea (Paxlovid) Allergies Allergy/AdvReac Type Severity Reaction Status Date / Time No Known Allergies Allergy Verified 10/29/24 14:54 Review of Systems Const: Denies: fever(s) or chills Card: Denies: chest pain Resp: Reports: dyspnea, non-productive cough and chest congestion GI: Denies: abdominal pain : Denies: dysuria, urinary frequency or urinary urgency Musc: Denies: neck pain or back pain Skin/Breast: Denies: rash PFSH ED PFSH: Medical History Left ventricular systolic dysfunction (LVSD), NYHA class 3 Chronic hypertension ESRD (end stage renal disease) Diabetic peripheral neuropathy associated with type 2 diabetes mellitus Ingrowing toenail of left foot Hematoma of leg Non-pressure chronic ulcer of 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 Bilateral pes planus Medical non-compliance Hypertensive urgency Closed right trimalleolar fracture Restless leg syndrome Peritonitis CAD (coronary artery disease) Depression End-stage renal disease on peritoneal dialysis Anemia Surgical History Hx of CABG Social History Smoking and tobacco/nicotine status: current every day tobacco/nicotine user (Cannabis/ Quit cigarettes 5 years ago) Alcohol intake: never Substance/Drug Use: current Other substance/drug use details: Medical marijuana Physical Exam Const: GENERAL APPEARANCE: cooperative ORIENTATION/CONSCIOUSNESS: Yes awake, Yes oriented to person, Yes oriented to place and Yes oriented to time HENMT: COMMON NORMALS: normocephalic, atraumatic and hearing grossly normal bilaterally HEAD & SCALP: normocephalic and atraumatic Resp: EFFORT & INSPECTION: Yes tachypneic, Yes labored and Yes uses accessory muscles AUSCULTATION: crackles Cardio: COMMON NORMALS: regular rate, regular rhythm and No murmurs present (Cardio) RATE: regular rate RHYTHM: regular rhythm GI: COMMON NORMALS: Soft to palpation and No hepatosplenomegaly present AUSCULTATION: Yes normoactive bowel sounds PALPATION: Yes Soft to palpation, No Tenderness to palpation present (GI), No Guarding due to palpation present (GI) and Yes No hepatosplenomegaly present Extremity: COMMON NORMALS: normal to inspection, capillary refill normal, no clubbing, cyanosis or edema, no calf tenderness and no pedal edema Neuro: SENSORIUM/ORIENTATION: Yes oriented to person, Yes oriented to place and Yes oriented to time Skin: COMMON NORMALS: no rashes or lesions noted GENERAL SKIN EXAM: no rashes or lesions noted Course Vital Signs: Vital signs: Vital Signs Temperature 98.8 F 12/03/24 07:33 Pulse Rate 73 12/03/24 09:29 Respiratory Rate 34 H 12/03/24 08:45 Blood Pressure 197/111 12/03/24 09:29 Pulse Oximetry 95 12/03/24 09:29 Oxygen Delivery Me thod BiPAP 12/03/24 09:29 Oxygen Flow Rate 15 12/03/24 07:39 Fraction of Inspir ed Oxygen 100 12/03/24 08:55 MDM - General Adult Medical Decision Making He told nursing staff that they had advised an extra round of dialysis last week due to fluid overload he declined that. Initial blood gases a pO2 of 37.9 pH 7.5 is bicarb is 28.5 he was changed to a mask shortly after arrival his sats improved to nearly 80 with BiPAP he is now satting 100%. He denies any chest pain continues to be hypertensive he was given labetalol and hydralazine added but then started on a nitro drip. Patient states he is regularly taking all his medications particularly his Eliquis he did take all of his medications this morning. On the chest x-ray question may be possible right upper lobe pneumonia cultures been done we will start him on Zosyn. CTA of the chest to be done and route to the ICU. His patient will need emergent dialysis for his congestive heart failure. Medical Records Echocardiogram CONCLUSIONS Diffuse hypokinesia of the left ventricular ejection fraction of 36%. Mildly dilated LV cavity. Normal right ventricular size. Mildly decreased right ventricular systolic function. Mildly increased right atrial size. Moderately increased left atrial size. Mild mitral annular calcification. Mild mitral valve regurgitation. Thickened aortic valve. Trace to mild tricuspid valve regurgitation. Mild to moderate pulmonary valve regurgitation. Estimated pulmonary artery peak systolic pressure within normal limits., This could be an underestimation because of the poor Doppler signals. Mild to moderate pulmonary valve regurgitation. There is no pericardial effusion. There are no intracardiac masses. Compared to the study from 10/14/2024, there may not be a significant change Dr Ursula Lyn MD [facility] Lab Data 12/03/24 07:48 12/03/24 07:48 Radiology Impressions Chest X-Ray 12/03/24 07:31 IMPRESSION: 1. Mild residual infiltrate in the mid RIGHT lung. Remaining lung amado are clear. 2. Pulmonary hyperinflation, chronic interstitial changes. Chest CTA 12/03/24 07:56 IMPRESSION: 1. No evidence of pulmonary embolus. 2. Trace pleural fluid. Compressive atelectasis in the lung bases LEFT greater than RIGHT. A few patchy opacities in the LEFT lower lobe similar to previous. Few patchy opacities in the lingula. Recommend correlation for pneumonia. 3. No other acute findings. Laboratory Results WBC 26.46 10^3/uL (3.29-11.43) H 12/03/24 07:48 RBC 3.16 10^6/uL (3.85-5.65) L 12/03/24 07:48 Hgb 9.70 g/dL (11.27-16.99) L 12/03/24 07:48 Hct 30.2 % (37-53) L 12/03/24 07:48 MCV 95.6 fl (82-101) 12/03/24 07:48 MCH 30.7 pg (27-33) 12/03/24 07:48 MCHC 32.1 g/dL (30-55) 12/03/24 07:48 RDW 18.6 % (12.1-15.1) H 12/03/24 07:48 Plt Count 265 10^3/cmm (157-399) 12/03/24 07:48 MPV 9.2 fL (7.4-10.4) 12/03/24 07:48 Neut % (Auto) 89.8 % 12/03/24 07:48 Lymph % (Auto) 3.7 % 12/03/24 07:48 [place] % (Auto) 3.6 % 12/03/24 07:48 Eos % (Auto) 1.6 % 12/03/24 07:48 Baso % (Auto) 0.4 % 12/03/24 07:48 Neut # (Auto) 23.75 10^3/uL (1.8-7.7) H 12/03/24 07:48 Lymph # (Auto) 1.0 10^3/uL (0.8-4.8) 12/03/24 07:48 [place] # (Auto) 1.0 10^3/uL (0.2-0.9) H 12/03/24 07:48 Eos # (Auto) 0.4 10^3/uL (0.0-0.8) 12/03/24 07:48 Baso # (Auto) 0.1 10^3/uL (0.0-0.1) 12/03/24 07:48 Nucleated RBC % (auto) 0 % 12/03/24 07:48 Nucleated RBCs # 0.0 /100WBC 12/03/24 07:48 Specimen Type Arterial 12/03/24 07:40 Sample Site Radial, right 12/03/24 07:40 ABG pH 7.50 (7.35-7.45) H 12/03/24 07:40 ABG pCO2 36.5 mmHg (35-45) 12/03/24 07:40 ABG pO2 37.9 mmHg (80.0-100.0) L* 12/03/24 07:40 ABG HCO3 28.5 mmol/L (22-26) H 12/03/24 07:40 ABG O2 Saturation 73.9 12/03/24 07:40 ABG Base Excess 5.1 mmol/L (-2.0-2.0) H 12/03/24 07:40 Otoniel Test Pos 12/03/24 07:40 A-a O2 Gradient 8.8 mmHg (5-10) 12/03/24 07:40 Hematocrit 28.1 % (42-52) L 12/03/24 07:40 Hgb O2 Saturation 71.9 % (95-100) L 12/03/24 07:40 Carboxyhemoglobin 2.2 %THgb (0.4-20.1) 12/03/24 07:40 Methemoglobin 0.5 % (0.4-1.5) 12/03/24 07:40 Total Hemoglobin 9.2 g/dL (14-18) L 12/03/24 07:40 Sodium 138.0 mmol/L (131-143) 12/03/24 07:40 Potassium 3.9 mmol/L (3.5-5.0) 12/03/24 07:40 Glucose 327.0 mg/dL (70-115) H 12/03/24 07:40 Ionized Calcium 1.2 mmol/L (1.1-1.4) 12/03/24 07:40 O2 Delivery Device Nrb 12/03/24 07:40 Communications Manager ID Broma 12/03/24 07:40 Sodium 137 mmol/L (136-145) 12/03/24 07:48 Potassium 4.2 mmol/L (3.5-5.1) 12/03/24 07:48 Chloride 97 mmol/L (98-107) L 12/03/24 07:48 Carbon Dioxide 24 mmol/L (22-29) 12/03/24 07:48 Anion Gap 20.2 (5-19) H 12/03/24 07:48 BUN 34 mg/dL (6-20) H 12/03/24 07:48 Creatinine 4.5 mg/dL (0.7-1.2) H 12/03/24 07:48 GFR Calculation 14.2 mL/min (90-130) L 12/03/24 07:48 Glucose 323 mg/dL (65-115) H 12/03/24 07:48 Calculated Osmolality 304 mOsm/kg (285-295) H 12/03/24 07:48 Lactic Acid 1.3 mmol/L (0.5-2.2) 12/03/24 07:48 Calcium 9.1 mg/dL (8.5-10.5) 12/03/24 07:48 Total Bilirubin 0.6 mg/dL (0.15-1.2) 12/03/24 07:48 AST 18 U/L (0-40) 12/03/24 07:48 ALT 13 U/L (0-41) 12/03/24 07:48 Alkaline Phosphatase 85 U/L (40-130) 12/03/24 07:48 Troponin T Baseline 319 ng/L (0-15) H* 12/03/24 07:48 Total Protein 7.0 g/dL (6.6-8.7) 12/03/24 07:48 Albumin 3.6 g/dL (3.5-5.2) 12/03/24 07:48 Globulin 3.4 g/dL (1.3-4.6) 12/03/24 07:48 Serum Ketones Negative (Negative) 12/03/24 07:48 All radiology interpretation(s) finalized by discharge EKG Data EKG 1: Interpretation: EKG 12/03/2024 7:37 AM normal sinus rhythm rate of 86. #157 QTc [address] changes no ST elevation or depression. Compared to EKG 11/13/2024. There were repull changes in V1 through 3 that are not present on today's EKG there is also some lead placement changes with the V3 being more upright in today's EKG than previous. No significant changes compared to the older EKG. Computer generated interpretation: Chest X-Ray 12/03/24 07:31 IMPRESSION: 1. Mild residual infiltrate in the mid RIGHT lung. Remaining lung amado are clear. 2. Pulmonary hyperinflation, chronic interstitial changes. Chest CTA 12/03/24 07:56 IMPRESSION: 1. No evidence of pulmonary embolus. 2. Trace pleural fluid. Compressive atelectasis in the lung bases LEFT greater than RIGHT. A few patchy opacities in the LEFT lower lobe similar to previous. Few patchy opacities in the lingula. Recommend correlation for pneumonia. 3. No other acute findings. Discharge Plan Discharge Patient Disposition: Admitted As Inpatient Admit Provider: Chris Arnold Clinical Impression: Acute CHF, Chronic hypertension, Pneumonia, Elevated troponin, Ischemic congestive cardiomyopathy, ESRD (end stage renal disease) on dialysis, Acute hypoxic respiratory failure, Accelerated hypertension Condition: Stable Coding Level of Care Code ED Medical Voucher Clerk for Monik Riley
--- OUTSIDE RECORDS SUMMARY | 2024-12-03 07:39 | XMS_ITS | Encounter Summary ---
Author Organization [facility] Address [address] [place] [address] Phone Care Team Providers Care Snuff Box Finisher Name Role Phone Savanah Garibay MD Primary Care Prov ider Reason for Visit * Reason Comments Med Refill Encounter Details Date Type Department Care Team (Late st Contact Info) Description 07/10/2023 Refill [facility] [address] [place] [phone] Melia Lomeli MD [address] [facility] [phone] Social History Tobacco Use Types Packs/Day [...] on filedocumented in this encounter Care Teams Snuff Box Finisher Relationship Specialty Start Date End Date Savanah Garibay MD [address] [place] [address] PCP - General Geriatric Medicine 10/19/18 documented as of this encounter
--- OUTSIDE RECORDS SUMMARY | 2024-12-03 07:39 | XMS_ITS | Encounter Summary ---
Author Organization [facility] Address [address] [place] [address] Phone Care Team Providers Care Instrument And Electrical Technician Name Role Phone Savanah Garibay MD Primary Care Prov ider Encounter Details Date Type Department Care Team (Late st Contact Info) Description 11/27/2024 Orders Only [facility] [address] [place] [address] Agnes Alvarado MD [address] [place] [address] Social History Tobacco Use Types [...] Priority Date/Time Associated Diagnosis Comments HEMATOLOGY Routine 11/27/2024 documented in this encounter Results * (ABNORMAL) HEMATOLOGY (11/27/2024) Hemoglobin 8.9(L) 14.0 - 18.0 g/dL [facility] Hemoglobin x 3 26.7(L) 42.0 - 54.0 % [facility] 11/27/2024 11/28/2024 9:3 5 AM CDT Narrative [facility] - 11/28/2024 Unless otherwise specified, test(s) performed at: [facility], [address] [place], [place] [id number] MECHANICAL TEST ENGINEER: Roman Sanchez M.D. For any questions, please call customer service at FREQUENCY:OTHER Resulting Agency Comment Specimen source: Blood us Agnes Alvarado MD LAB BLOOD ORDERABLES Final Re sult [facility] See order comments or contact performing lab Unknown, [place] documented in this encounter Visit Diagnoses Not on filedocumented in this encounter Care Teams Instrument And Electrical Technician Relationship Specialty Start Date End Date Savanah Garibay MD [address] [facility] [address] [place] [address] PCP - General Geriatric Medicine 10/19/18 documented as of this encounter
--- OUTSIDE RECORDS SUMMARY | 2024-12-03 07:39 | XMS_ITS | Encounter Summary ---
Author Organization [facility] Address [address] [place] [address] Phone Care Team Providers Care Hardware Test Engineer Name Role Phone Savanah Garibay MD Primary Care Prov ider Reason for Visit * Reason Comments Med Refill Encounter Details Date Type Department Care Team (Late st Contact Info) Description 06/26/2020 Refill [facility] [address] [place] [address] Juana Castellon CNP Social History [...] on filedocumented in this encounter Care Teams Hardware Test Engineer Relationship Specialty Start Date End Date Savanah Garibay MD [address] [place] [address] PCP - General Geriatric Medicine 10/19/18 documented as of this encounter
--- OUTSIDE RECORDS SUMMARY | 2024-12-03 07:39 | XMS_ITS | Encounter Summary ---
Author Organization [facility] Address [address] [place] [address] Phone Care Team Providers Care Landscaper Helper Name Role Phone Savanah Garibay MD Primary Care Prov ider Reason for Visit * Reason Comments Med Refill Encounter Details Date Type Department Care Team (Late st Contact Info) Description 04/06/2023 Refill [facility] [address] [place] [phone] Melia Lomeli MD [address] [facility] [place] [address] Social History Tobacco Use Types Packs/Day [...] on filedocumented in this encounter Care Teams Landscaper Helper Relationship Specialty Start Date End Date Savanah Garibay MD [address] [place] [address] PCP - General Geriatric Medicine 10/19/18 documented as of this encounter
--- OUTSIDE RECORDS SUMMARY | 2024-12-03 07:39 | XMS_ITS | Encounter Summary ---
Author Organization [facility] Address [address] [place] [address] Phone Care Team Providers Care Chassis Driver Name Role Phone Savanah Garibay MD Primary Care Prov ider Reason for Visit * Reason Comments Med Refill Encounter Details Date Type Department Care Team (Late st Contact Info) Description 02/20/2023 Refill [facility] [address] [place] [address] Daisy Rojas MD [address] [place] [address] Social History Tobacco Use Types [...] on filedocumented in this encounter Care Teams Chassis Driver Relationship Specialty Start Date End Date Savanah Garibay MD [address] [place] [address] PCP - General Geriatric Medicine 10/19/18 documented as of this encounter
--- OUTSIDE RECORDS SUMMARY | 2024-12-03 07:39 | XMS_ITS | Encounter Summary ---
Author Organization [facility] Address [address] [place] [address] Phone Care Team Providers Care Quitline Counselor Name Role Phone Savanah Garibay MD Primary Care Prov ider Encounter Details Date Type Department Care Team (Late st Contact Info) Description 11/29/2024 Orders Only [facility] [address] [place] [address] Agnes Alvarado MD [address] [place] [address] Social History Tobacco Use Types [...] Priority Date/Time Associated Diagnosis Comments HEMATOLOGY Routine 11/29/2024 documented in this encounter Results * (ABNORMAL) HEMATOLOGY (11/29/2024) Hemoglobin 8.6(L) 14.0 - 18.0 g/dL [facility] Hemoglobin x 3 25.8(L) 42.0 - 54.0 % [facility] 11/29/2024 11/30/2024 10: 58 AM CDT Narrative [facility] - 11/30/2024 Unless otherwise specified, test(s) performed at: [facility], [address] [place], [place] [id number] TOP STEEP TENDER: Roman Sanchez M.D. For any questions, please call customer service at FREQUENCY:OTHER Resulting Agency Comment Specimen source: Blood us Agnes Alvarado MD LAB BLOOD ORDERABLES Final Re sult [facility] See order comments or contact performing lab Unknown, [place] documented in this encounter Visit Diagnoses Not on filedocumented in this encounter Care Teams Quitline Counselor Relationship Specialty Start Date End Date Savanah Garibay MD [address] [facility] [address] [place] [address] PCP - General Geriatric Medicine 10/19/18 documented as of this encounter
--- OUTSIDE RECORDS SUMMARY | 2024-12-03 07:39 | XMS_ITS | Encounter Summary ---
Author Organization [facility] Address [address] [place] [address] Phone Care Team Providers Care Senior Asset Manager Name Role Phone Savanah Garibay MD Primary Care Prov ider Encounter Details Date Type Department Care Team (Late st Contact Info) Description 11/27/2024 Treatment [facility] [address] [place] [address] Agnes Alvarado MD [address] [place] [address] End stage renal disease; Dependence on renal dialysis Social History Tobacco Use Types Packs/Day Years [...] on file documented as of this encounter Miscellaneous Notes * Dialysis Note - Agnes Alvarado MD - 11/27/2024 12:00 AM CDT Patient: Jose Guadalupe Claudio, 1980, 44y, M Dialysis Location: [facility] Attending Housecleaner: Agnes Alvarado Service Date: 11/27/2024 Service Provider: Agnes Alvarado MD I met face to face with the patient today. OVERVIEW The patient presented with ESRD on dialysis Primary cause of renal failure: Type 2 diabetes mellitus with diabetic chronic kidney disease Comments: VSS, seen on HD , denies concerns for me today History Lived in [place], [place]. Moved to [place], [place] to be near family. He has been on dialysis for about 4 years. Since 2019. He has mainly been on PD. PD now d/c due to fungal peritonitis and inadequate therapy. ESRD is secondary to DM II and hx of COVID/MRSA with vancomycin. He is doing better reports with increased energy and appetite. Medications and labs reviewed. LAST HOSPITALIZATION Discharge Diagnosis: U07.1 Covid-19 I16.9 Hypertensive crisis, unspecified E13.65 Other specified diabetes mellitus with hyperglycemia Admission Date 11/12/24 Discharge Date 11/15/24 DIALYSIS PRESCRIPTION IHD 3x Week Start date: 11/24/24 Dialyzer: 180NRe Optiflux BFR: 450 DFR: Autoflow 2 Potassium: 2.0 Sodium: 138 EDW: 66 Duration: 4:00 Calcium: 2.5 Bicarb: 35 Rx updated on: 11/24/2024 TREATMENT ASSESSMENT Comments: BPs have been stable at goal and at home at goal. One time had SBP higher. Monitor. BP Sit Pre 11/24/2024: 177/102 11/22/2024: 122/81 11/20/2024: 110/82 BP Sit Post 11/24/2024: 146/99 11/22/2024: 162/104 11/20/2024: 143/89 Tx Duration 11/24/2024: 4:02 11/22/2024: 3:54 11/20/2024: 4:00 Missed Treatments 0 - last 30 days 0 - last 60 days FLUID ASSESSMENT Comments: Doing some better with fluid gains. Ongoing education. EDW (kg) 11/24/2024: 66.4 11/22/2024: 68.5 11/20/2024: 68.5 Weight Pre (kg) 11/24/2024: 68.6 11/22/2024: 68.1 11/20/2024: 67.3 Weight Post (kg) 11/24/2024: 66.0 11/22/2024: 66.4 11/20/2024: 66.9 PWV (kg) 11/24/2024: -0.4 11/22/2024: -2.1 11/20/2024: -1.6 UF Rate (mL/kg/hr) 11/24/2024: 9.8 11/22/2024: 6.6 11/20/2024: 1.5 ADEQUACY ASSESSMENT Comments: Stable trend. Can not lower time for has hx of larger fluid gains. spKt/V, URR 11/17/2024: 2.06, 82.0 10/11/2024: 1.59, 76.0 09/13/2024: 2.07, 81.0 ACCESS ASSESSMENT Access Type: CVCatheter Access SubType: Tunneled Access Status: Active (In Use) - 01/30/2024 Access Location: Chest Placed: 01/23/2024 Comments: He had stents placed for CAD and on eliquis. Will not be able for AVF until after the first of the year. Vascular access reviewed. Current access is permanent and functioning well. ANEMIA ASSESSMENT Comments: On IV iron and GIANCARLO protocol. HGB, TSAT 11/22/2024: 9.8, - 11/20/2024: 9.2, - 11/17/2024: 9.6, 72.0 Ferritin 11/01/2024: 886.0 09/13/2024: 921.0 07/19/2024: 1181.0 Mircera, IVP (mcg) 10/02/2024: 150 09/11/2024: 200 08/28/2024: 200 Iron Sucrose (Venofer) (mg) 10/25/2024: 100 10/23/2024: 100 10/20/2024: 100 BMM ASSESSMENT Comments: Stable. Phos almost at goal. Referred to dietitian. PTH, Intact 09/13/2024: 243.0 06/14/2024: 221.0 Calcium, Phosphorus 11/17/2024: 8.9, 5.8 10/11/2024: 9.3, 5.6 09/13/2024: 9.2, 5.5 NUTRITION ASSESSMENT Comments: Albumin steady. Ed to eat protein in diet. Potassium, Albumin 11/17/2024: 5.1, 3.5 10/11/2024: 5.1, 3.7 09/13/2024: 4.1, 3.7 eNPCR 10/11/2024: 0.73 09/13/2024: 0.62 07/12/2024: 1.08 PHYSICAL EXAM Exam Performed. Vital Signs Reviewed. CV - Blood pressure noted. EXT - No edema. EXT - No ulcers. DIAGNOSIS Chief Complaint: N18.6 End stage renal disease Patient is stable. Patient data updated 11/27/2024 at 3:08 PM Signed By: Agnes Alvarado MD on 11/27/2024 3:15:06 PM documented in this encounter Plan of Treatment Not on file documented as of this encounter Visit Diagnoses Diagnosis End stage renal disease Dependence on renal dialysis documented in this encounter Care Teams Senior Asset Manager Relationship Specialty Start Date End Date Savanah Garibay MD [address] [facility] [address] [place] [address] PCP - General Geriatric Medicine 10/19/18 documented as of this encounter
--- OUTSIDE RECORDS SUMMARY | 2024-12-03 07:39 | XMS_ITS | Clinical Summary ---
Author Organization [facility] Address [address] [facility] [address] [place] [address] Phone Care Team Providers Care Marine Equipment Sales Engineer Name Role Phone Savanah Garibay MD [...] tablet 3 0 Active ergocalciferol 1.25 MG (16133 UT) capsule TAKE 1 CAPSULE BY MOUTH [...] Encounters Date Type Department Care Team Description 11/29/2024 Orders Only [facility] [address] [place] [address] Agnes Alvarado MD 11/27/2024 Orders Only [facility] [address] [place] [address] Agnes Alvarado MD 11/27/2024 Treatment [facility] [employer], [facility] [address] [place] [address] Agnes Alvarado MD End stage renal disease; Dependence on renal dialysis 11/22/2024 Orders Only [facility] [address] [place] [address] Agnes Alvarado MD 11/20/2024 Orders Only [facility] [address] [place] [address] Agnes Alvarado MD 11/20/2024 Treatment [facility] [employer], [facility] [address] [place] [address] Jaky Roberts, MICHELLE End stage renal disease; Dependence on renal dialysis 11/17/2024 Orders Only [facility] [address] [place] [address] Agnes Alvarado MD 11/08/2024 Orders Only [facility] [address] [place] [address] Agnes Alvarado MD 11/06/2024 Orders Only [facility], [facility] [address] [place] [address] Agnes Alvarado MD 11/01/2024 Orders Only [facility], [facility] [address] [place] [address] Agnes Alvarado MD 10/30/2024 Orders Only [facility], [facility] [address] [place] [address] Agnes Alvarado MD 10/30/[address] [place] [address], [facility] [address] [place] [address] Agnes Alvarado MD End stage renal disease; Dependence on renal dialysis 10/25/2024 Orders Only [facility], [facility] [address] [place] [address] Agnes Alvarado MD 10/23/2024 Orders Only [facility], [facility] [address] [place] [address] Agnes Alvarado MD 10/23/2024 TCM in Dialysis Clinic [address] [place] [address], [facility] [address] [place] [address] Jaky Roberts NP 10/23/[address] [place] [address], [facility] [address] [place] [address] Jaky Roberts, MICHELLE End stage renal disease; Dependence on renal dialysis 10/19/2024 Documentation Only [facility], [facility] [address] [place] [address] Alana Pantoja MA 10/19/2024 Telephone [facility], [facility] [address] [place] [address] Hawa Franco NP 10/11/2024 Orders Only [facility], [facility] [address] [place] [address] Agnes Alvarado MD 10/09/2024 Orders Only [facility], [facility] [address] [place] [address] Agnes Alvarado MD 10/09/[address] [place], [place] [address]rology [facility], [facility] [address] [place] [address] Hawa Franco, MICHELLE End stage renal disease; Dependence on renal dialysis 10/04/2024 Orders Only [facility], [facility] [address] [place] [address] Agnes Alvarado MD 10/02/2024 Orders Only [facility], [facility] [address] [place] [address] Agnes Alvarado MD 10/02/2024 Treatment [facility], [facility] [address] [place] [address] Jaky Roberts NP End stage renal disease; Dependence on renal dialysis 09/27/2024 Orders Only [facility], [facility] [address] [place] [address] Agnes Alvarado MD 09/27/[address] [place], [place] [address]rology [facility], [facility] [address] [place] [address] Agnes Alvarado MD End stage renal disease; Dependence on renal dialysis 09/25/2024 Orders Only [facility], [facility] [address] [place] [address] Agnes Alvarado MD 09/20/2024 Orders Only [facility], [facility] [address] [place] [address] Agnes Alvarado MD 09/18/2024 Orders Only [facility], [facility] [address] [place] [address] Agnes Alvarado MD 09/18/[address] [place] [address] Nephrology [facility], [facility] [address] [place] [address] Jaky Roberts NP End stage renal disease; Dependence on renal dialysis 09/13/2024 Orders Only [facility], [facility] [address] [place] [address] Agnes Alvarado MD 09/12/2024 Telephone [facility], [facility] [address] [place] [address] Agnes Alvarado MD 09/11/2024 Orders Only [facility], [facility] [address] [place] [address] Agnes Alvarado MD 09/11/[address] [place], [place] [address]rology [facility], [facility] [address] [place] [address] Jaky Roberts NP End stage renal disease; Dependence on renal dialysis 09/06/2024 Orders Only [facility], [facility] [address] [place] [address] Agnes Alvarado MD 09/06/[address] [place], [place] [address]rology [facility], [facility] [address] [place] [address] Agnes Alvarado MD End stage renal disease; Dependence on renal dialysis 09/04/2024 Orders Only [facility], [facility] [address] [place] [address] Agnes Alvarado MD from Last [...] Date/Time Associated Diagnosis Comments HEMATOLOGY Routine 11/29/2024 HEMATOLOGY Routine 11/27/2024 HEMATOLOGY Routine 11/22/2024 HEMATOLOGY Routine 11/20/2024 [facility] RESULTS Routine 11/17/2024 HD KINETICS Routine 11/17/2024 CHEMISTRY Routine 11/17/2024 POST CHEMISTRY Routine 11/17/2024 HEMATOLOGY Routine 11/17/2024 HEMATOLOGY Routine 11/08/2024 HEMATOLOGY Routine 11/06/2024 CHEMISTRY [...] 09/11/2024 HEMATOLOGY Routine 09/06/2024 HEMATOLOGY Routine 09/04/2024 from Last 3 Months Results * (ABNORMAL) HEMATOLOGY (11/29/2024) Only the most recent of26 resultswithin the time period is included. Hemoglobin 8.6(L) 14.0 - 18.0 g/dL [facility] Hemoglobin x 3 25.8(L) 42.0 - 54.0 % [facility] 11/29/2024 11/30/2024 10: 58 AM CDT Narrative [facility] - 11/30/2024 Unless otherwise specified, test(s) performed at: [facility], [address] [place], [place] [id number] TOOL COORDINATOR: Roman Sanchez M.D. For any questions, please call customer service at FREQUENCY:OTHER Resulting Agency Comment Specimen source: Blood us Agnes Alvarado MD LAB BLOOD ORDERABLES Final Re sult Performing Organization Address [facility] Co de Phone Number [facility] See order comments or contact performing lab Unknown, [place] * (ABNORMAL) HD KINETICS (11/17/2024) Only the most recent of3 resultswithin the time period is included. % Urea Reduction 82(H) 65 - 80 % [facility] 11/17/2024 11/20/2024 10: 53 AM CDT Narrative [facility] - 11/20/2024 Unless otherwise specified, test(s) performed at: [facility], [address] [place] [address] TOOL COORDINATOR: Roman Sanchez M.D. For any questions, please call customer service at FREQUENCY:MONTHLY Resulting Agency Comment Specimen source: Plasma us Agnes Alvarado MD LAB BLOOD ORDERABLES Final Re sult Performing Organization Address [facility] de Phone Number [facility] See order comments or contact performing lab Unknown, [place] * POST CHEMISTRY (11/17/2024) Only the most recent of3 resultswithin the time period is included. Pathologist [facility] BUN Post Dialysis 13 6 - 19 mg/dL [facility] 11/17/2024 11/20/2024 10: 53 AM CDT Narrative [facility] - 11/20/2024 Unless otherwise specified, test(s) performed at: [facility], [address] [place], [place] [id number] TOOL COORDINATOR: Roman Sanchez M.D. For any questions, please call customer service at FREQUENCY:MONTHLY Resulting Agency Comment Specimen source: Plasma us Agnes Alvarado MD LAB BLOOD ORDERABLES Final Re sult Performing Organization Address [facility] Co de Phone Number [facility] See order comments or contact performing lab Unknown, [place] * (ABNORMAL) [facility] (11/17/2024) Only the most recent of5 resultswithin the time period is included. BUN 74(H) 6 - 19 mg/dL [facility] Creatinine 7.64(H) 0.60 - 1.30 mg/dL [facility] BUN/Creatinine Ratio 9.7(L) 10.0 - 20.0 [facility] Sodium 138 136 - 145 mEq/L [facility] Potassium 5.1 3.5 - 5.1 mEq/L [facility] Chloride 99 96 - 108 mEq/L [facility] Bicarbonate (CO2) 22 22 - 29 mEq/L [facility] Calcium 8.9 8.4 - 10.2 mg/dL [facility] Corrected Calcium 9.3 8.4 - 10.2 mg/dL [facility] Comment: Corrected Calcium is not equivalent to measured Ionized Calcium. Phosphorus 5.8(H) 2.6 - 4.5 mg/dL [facility] Calcium Phosphorus Product 52 0 - 54 [facility] Calcium Phosporus Product, Cor 54 0 - 54 [facility] Total Protein 7.2 6.0 - 8.5 g/dL [facility] Albumin 3.5 3.5 - 5.2 g/dL [facility] Globulin, Total 3.7 2.0 - 4.0 g/dL [facility] A/G Ratio 0.9(L) 1.0 - 2.0 [facility] Glucose 260(H) 70 - 100 mg/dL [facility] Iron 126 45 - 160 mcg/dL [facility] UIBC 48(L) 155 - 355 mcg/dL [facility] TIBC 174(L) 185 - 515 mcg/dL [facility] Iron Saturation (TSat) 72(H) 20 - 55 % [facility] 11/17/2024 11/20/2024 12: 58 PM CDT Narrative [facility] - 11/20/2024 Unless otherwise specified, test(s) performed at: [facility], [address] [place] [id number] TOOL COORDINATOR: Roman Sanchez M.D. For any questions, please call customer service at FREQUENCY:MONTHLY Resulting Agency Comment Specimen source: Serum Agnes Alvarado MD LAB BLOOD ORDERABLES Final Re sult [facility] See order comments or contact performing lab Unknown, [place] * [facility] Results (11/17/2024) Only the most recent of3 resultswithin the time period is included. eKt/V (Tattersall) 1.80 [facility] WSTDKT/V 0.9 Knowledge Center spKt/V (Daugirdas II) 2.06 [facility] 11/17/2024 11/17/2024 [facility] Ordering Provider LAB BLOOD ORDERABLES Final Result Performing Organization Address [facility] Co de Phone Number [facility] Contact Performing lab Unknown, [place] * SPECIAL CHEMISTRY (09/13/2024) Pathologist [facility] Hemoglobin A1C 5.0 4.8 - 5.9 % [facility] 09/13/2024 09/14/2024 9:4 4 AM CDT Narrative [facility] - 09/14/2024 Unless otherwise specified, test(s) performed at: [facility], [address] [place] [id number] TOOL COORDINATOR: Roman Sanchez M.D. For any questions, please call customer service at FREQUENCY:MONTHLY Resulting Agency Comment Specimen source: Blood Agnes Alvarado MD LAB BLOOD BANK TEST ORDERABLE S Final Result Performing Organization Address [facility] Co de Phone Number [facility] See order comments or contact performing lab Unknown, [place] from Last 3 Months Insurance [facility] [place] Adv ([id number]) [place][id number]) Care Teams Marine Equipment Sales Engineer Relationship Specialty Start Date End Date Savanah Garibay MD [address] [facility] [address] [place] [address] PCP - General Geriatric Medicine 10/19/18
--- OUTSIDE RECORDS SUMMARY | 2024-12-03 07:39 | XMS_ITS | Encounter Summary ---
Author Organization [facility] [employer] Address [address] [place] [address] Phone Care Team Providers Care Solicitor Patent Name Role Phone Savanah Garibay MD Primary Care Prov ider Reason for Visit * Reason Comments Med Refill Encounter Details Date Type Department Care Team (Late st Contact Info) Description 03/28/2020 [facility] [address] [place] [address] Juana Castellon CNP Social History [...] on filedocumented in this encounter Care Teams Solicitor Patent Relationship Specialty Start Date End Date Savanah Garibay MD [address] [place] [address] PCP - General Geriatric Medicine 10/19/18 documented as of this encounter
--- OUTSIDE RECORDS SUMMARY | 2024-12-03 07:39 | XMS_ITS | Encounter Summary ---
Author Organization [facility] Address [address] [place] [address] Phone Care Team Providers Care Corporate Security Manager Name Role Phone Savanah Garibay MD Primary Care Prov ider Reason for Visit * Reason Comments Med Refill Encounter Details Date Type Department Care Team (Late st Contact Info) Description 05/16/2020 Refill [facility] [address] [place] [address] Juana Castellon CNP Social History [...] on filedocumented in this encounter Care Teams Corporate Security Manager Relationship Specialty Start Date End Date Savanah Garibay MD [address] [place] [address] PCP - General Geriatric Medicine 10/19/18 documented as of this encounter
--- OUTSIDE RECORDS SUMMARY | 2024-12-03 07:39 | XMS_ITS | Encounter Summary ---
Author Organization [facility] Address [address] [place] [address] Phone Care Team Providers Care Supervising Broker Name Role Phone Savanah Garibay MD Primary Care Prov ider Reason for Visit * Reason Comments Med Refill Encounter Details Date Type Department Care Team (Late st Contact Info) Description 03/09/2023 Refill [facility] [address] [place] [address] Daisy Rojas MD [address] [place] [address] Social History Tobacco Use Types [...] on filedocumented in this encounter Care Teams Supervising Broker Relationship Specialty Start Date End Date Savanah Garibay MD [address] [place] [address] [place] [address] PCP - General Geriatric Medicine 10/19/18 documented as of this encounter
--- OUTSIDE RECORDS SUMMARY | 2024-12-03 07:39 | XMS_ITS | Encounter Summary ---
Author Organization [facility] Address [address] [place] [address] Phone Care Team Providers Care Guard Museum Name Role Phone Savanah Garibay MD Primary Care Prov ider Reason for Visit * Reason Comments Med Refill Encounter Details Date Type Department Care Team (Late st Contact Info) Description 03/12/2023 Refill [facility] [address] [place] [address] Daisy Rojas MD [address] [place] [address] Social History Tobacco Use Types [...] on filedocumented in this encounter Care Teams Guard Museum Relationship Specialty Start Date End Date Savanah Garibay MD [address] [place] [address] PCP - General Geriatric Medicine 10/19/18 documented as of this encounter
--- OUTSIDE RECORDS SUMMARY | 2024-12-03 07:39 | XMS_ITS | Encounter Summary ---
Author Organization [facility] [employer], [facility] Address [address] [place] [address] Phone Care Team Providers Care Janitor Cleaner Name Role Phone Savanah Garibay MD Primary Care Prov ider Encounter Details Date Type Department Care Team (Late st Contact Info) Description 10/23/2024 TCM in Dialysis Clinic [facility] [employer], [facility] [address] [place] [address] Roberta Cortez NP [address] [place] [address] Social History Tobacco Use Types [...] 10/23/2024 The patient was seen for a aryh-ju-wfvs visit as part of Transitional Care Management services. Attending Medical Records Field Technician: KSENIA CRUZ Dialysis Location: [facility] Schedule: Shift: 2 INTERACTIVE CONTACT Contact [...] 97.8*F Current Dialysis Vitals BP Sit: 97/71 AP/FLEET MANAGER: -- Pulse: 71 CARE COORDINATION Post-discharge follow-up appointments reviewed with the patient. EDUCATION Education relevant to the discharge diagnosis provided to the patient or caregiver IMPRESSION & PLAN COMMENTS: chest pain?status post heart catheter with stent placement. Started on Imdur and Plavix ESRD?continue dialysis TTS VISIT DIAGNOSES CPT Code 36986 - High complexity, seen within 7 days [...] on filedocumented in this encounter Care Teams Janitor Cleaner Relationship Specialty Start Date End Date Savanah Garibay MD [address] [facility] [address] [place] [address] PCP - General Geriatric Medicine 10/19/18 documented as of this encounter
--- OUTSIDE RECORDS SUMMARY | 2024-12-03 07:39 | XMS_ITS | Encounter Summary ---
Author Organization [facility] [employer] Address [address] [place] [address] Phone Care Team Providers Care Insurance Defense Attorney Name Role Phone Savanah Garibay MD Primary Care Prov ider Reason for Visit * Reason Comments Med Refill Encounter Details Date Type Department Care Team (Late st Contact Info) Description 06/14/2020 Refill [facility] [address] [place] [address] Juana Castellon CNP Social History [...] on filedocumented in this encounter Care Teams Insurance Defense Attorney Relationship Specialty Start Date End Date Savanah Garibay MD [address] [place] [address] PCP - General Geriatric Medicine 10/19/18 documented as of this encounter
--- OUTSIDE RECORDS SUMMARY | 2024-12-03 07:40 | XMS_ITS | Encounter Summary ---
Author Organization [facility] Address [address] [place] [address] Phone Care Team Providers Care Petrography Teacher Name Role Phone Savanah Garibay MD Primary Care Prov ider Reason for Visit * Reason Comments Med Refill Encounter Details Date Type Department Care Team (Late st Contact Info) Description 07/09/2021 Refill [facility] [address] [place] [address] Juana Castellon CNP Social History [...] on filedocumented in this encounter Care Teams Petrography Teacher Relationship Specialty Start Date End Date Savanah Garibay MD [address] [place] [address] PCP - General Geriatric Medicine 10/19/18 documented as of this encounter
--- OUTSIDE RECORDS SUMMARY | 2024-12-03 07:40 | XMS_ITS | Encounter Summary ---
Author Organization [facility] Address [address] [place] [address] Phone Care Team Providers Care House Steward/Stewardess Name Role Phone Savanah Garibay MD Primary Care Prov ider Reason for Visit * Reason Comments Med Refill Encounter Details Date Type Department Care Team (Late st Contact Info) Description 09/27/2022 Refill [facility] [address] [place] [address] Daisy Rojas MD [address] [place] [address] Social History Tobacco Use Types [...] on filedocumented in this encounter Care Teams House Steward/Stewardess Relationship Specialty Start Date End Date Savanah Garibay MD [address] [place] [address] PCP - General Geriatric Medicine 10/19/18 documented as of this encounter
--- OUTSIDE RECORDS SUMMARY | 2024-12-03 07:40 | XMS_ITS | Encounter Summary ---
Author Organization [facility] [employer], [facility] Address [address] [place] [address] Phone Care Team Providers Care Vp Project Name Role Phone Savanah Garibay MD Primary Care Prov ider Encounter Details Date Type Department Care Team (Late st Contact Info) Description 01/31/2024 TCM in Dialysis Clinic [facility] [employer], [facility] [address] [place] [address] Agnes Alvarado MD [address] [place] [address] Social History Tobacco Use Types [...] Guadalupe Claudio, 1980, 43y, M Dialysis Location: [facility] Attending Mushroom Farmer: Agnes Alvarado Service Date: 01/31/2024 Service Provider: [...] on filedocumented in this encounter Care Teams Vp Project Relationship Specialty Start Date End Date Savanah Garibay MD [address] [facility] [address] [place] [address] PCP - General Geriatric Medicine 10/19/18 documented as of this encounter
--- OUTSIDE RECORDS SUMMARY | 2024-12-03 07:40 | XMS_ITS | Encounter Summary ---
Author Organization [facility] [employer] [employer] Address [address] [place] [address] Phone Care Team Providers Care Eyelet Punch Operator Name Role Phone Savanah Garibay MD Primary Care Prov ider Reason for Visit * Reason Comments Med Refill Encounter Details Date Type Department Care Team (Late st Contact Info) Description 07/24/2024 Refill [facility] [address] [place] [address] Agnes Alvarado MD [address] [place] [address] Social History Tobacco Use Types [...] on filedocumented in this encounter Care Teams Eyelet Punch Operator Relationship Specialty Start Date End Date Savanah Garibay MD [address] [place] [address] PCP - General Geriatric Medicine 10/19/18 documented as of this encounter
--- OUTSIDE RECORDS SUMMARY | 2024-12-03 07:40 | XMS_ITS | Encounter Summary ---
Author Organization [facility] Address [address] [place] [address] Phone Care Team Providers Care Unpaid Intern Name Role Phone Savanah Garibay MD Primary Care Prov ider Reason for Visit * Reason Comments Med Refill Encounter Details Date Type Department Care Team (Late st Contact Info) Description 03/16/2021 Refill [facility] [address] [place] [address] Daisy Rojas MD [address] [place] [address] Social History Tobacco Use Types [...] on filedocumented in this encounter Care Teams Unpaid Intern Relationship Specialty Start Date End Date Savanah Garibay MD [address] [place] [address] PCP - General Geriatric Medicine 10/19/18 documented as of this encounter
--- OUTSIDE RECORDS SUMMARY | 2024-12-03 07:40 | XMS_ITS | Encounter Summary ---
Author Organization [facility] [email or web address] Address [address] [place] [address] Phone Care Team Providers Care Glassworker Name Role Phone Savanah Garibay MD Primary Care Prov ider Encounter Details Date Type Department Care Team (Late st Contact Info) Description 12/07/2019 Orders Only [facility] [address] [place] [address] Acute kidney failure with lesion [...] an order to start him on Ergo 40299 IU once a week x 8 weeks, then monthly. Hawa Franco NP * Hawa Franco NP - 12/07/2019 11:59 PM CDT Have patient begin ergocalciferol 01097 IU [place] mouth [place], [place] [address] U ergocalciferol by mouth monthly: recheck Vit [...] D, 25-Hydroxy 5(L) 30 - 100 ng/mL [facility] Comment: Interpretive Data Chart: Deficient: 0 - 20 ng/mL Insufficient: 21 - 29 ng/mL Sufficient: 30 - 100 ng/mL Increased Risk of Hypercalciuria: >100 ng/ml Toxic: >150 ng/ml Performed at: [facility] [place] [address] Salvage Inspector: Yony Malik MD CLIA # [id number] Blood specimen (specimen) Venous blood / Unknown 11/29/2019 12:00 PM CDT 11/29/2019 9:59 PM CDT [facility] LAB BLOOD ORDERABLES Final Re sult Performing Organization Address [facility] Co de Phone Number [facility] * (ABNORMAL) PTH, intact (11/29/2019 12:00 PM CDT) Pathologist [facility] Parathyroid Hormone, Intact 100(H) 15 - 65 pg/mL [facility] Comment: Test Performed by: [place] [address] Salvage Inspector: Wilmer Be M.D. Ph.D.; CLIA# [id number] Blood specimen (specimen) Venous blood / Unknown 11/29/2019 12:00 PM CDT 11/29/2019 9:59 PM CDT [facility] LAB BLOOD ORDERABLES Final Re sult [facility] * (ABNORMAL) CBC (11/29/2019 12:00 PM CDT) Pathologist [facility] WBC 11.3(H) 4.5 - 11.0 K/uL [facility] Red Blood Cells 2.97(L) 4.60 - 6.20 M/uL [facility] Hgb 8.6(L) 14.0 - 18.0 g/dL [...] fL [facility] Comment: Performed at: [facility] [place] [address] Salvage Inspector: Yony Malik MD CLIA # [id number] Blood specimen (specimen) Venous blood / Unknown 11/29/2019 12:00 PM CDT 11/29/2019 9:59 PM CDT [facility] BLOOD ORDERABLES Final Re sult [...] [facility]NA Comment: TEST COMMENT: Fasting?->No Performed at: [facility] [address] [address] Salvage Inspector: Yony Malik MD CLIA # [id number] Blood specimen (specimen) Venous blood / Unknown 11/29/2019 12:00 PM CDT 11/29/2019 9:59 PM CDT [facility] LAB BLOOD ORDERABLES Final Re sult [facility] documented in this encounter Visit Diagnoses Diagnosis Acute kidney failure with lesion of tubular necrosis (HCC) Acute kidney failure with lesion of tubular necrosis Iron deficiency anemia, not otherwise specified Vitamin D deficiency, not otherwise specified documented in this encounter Care Teams Glassworker Relationship Specialty Start Date End Date Savanah Garibay MD [address] [facility] [address] [place] [address] PCP - General Geriatric Medicine 10/19/18 documented as of this encounter
--- OUTSIDE RECORDS SUMMARY | 2024-12-03 07:40 | XMS_ITS | Encounter Summary ---
Author Organization [facility] [employer] Address [address] [place] [address] Phone Care Team Providers Care Industrial Accountant Name Role Phone Savanah Garibay MD Primary Care Prov ider Encounter Details Date Type Department Care Team (Late st Contact Info) Description 01/04/2020 Orders Only [facility] [address] [place] [address] Juana Castellon CNP Stage 5 [...] (HCC) documented in this encounter Care Teams Industrial Accountant Relationship Specialty Start Date End Date Savanah Garibay MD [address] [place] [address] PCP - General Geriatric Medicine 10/19/18 documented as of this encounter
--- OUTSIDE RECORDS SUMMARY | 2024-12-03 07:40 | XMS_ITS | Encounter Summary ---
Author Organization [facility] [employer] [employer] Address [address] [place] [address] Phone Care Team Providers Care Credit Operations Processor Name Role Phone Savanah Garibay MD Primary Care Prov ider Encounter Details Date Type Department Care Team (Late st Contact Info) Description 11/20/2019 Orders Only [facility] [address] [place] [address] Acute kidney failure with lesion [...] Specimen Source: Urine, unspecified source Performed at: [place] [address] [id number] Steel Finisher: Yony Malik MD CLIA # [id number] Urine specimen (specimen) Urine specimen obtained by clean catch procedure / Unknown 12/11/2019 12:10 PM CDT 11/20/2019 4:52 PM CDT [facility] LAB URINE ORDERABLES Final Re sult Performing Organization Address City/[facility] Co de Phone Number [facility] * (ABNORMAL) Iron Panel (Fe, TIBC, TSAT) (11/20/2019 12:33 PM CDT) Iron 35(L) 59 - 158 ug/dL [facility] TIBC 192(L) 250 - 450 ug/dL [facility] Iron Saturation (TSat) 18 15 - 60 % [facility] Comment: Performed at: [place] [address] [id number] Steel Finisher: Yony Malik MD CLIA # [id number] Blood specimen (specimen) Venous blood / Unknown 11/20/2019 12:33 PM CDT 11/20/2019 4:52 PM CDT [facility] LAB BLOOD ORDERABLES Final Re [...] SNA Comment: TEST COMMENT: Fasting?->No Performed at: [facility] Services[address] [address] Steel Finisher: MD SCARLETT Cardoso # [id number] Blood specimen (specimen) Venous blood / Unknown 11/20/2019 12:33 PM CDT 11/20/2019 4:52 PM CDT [facility] LAB BLOOD ORDERABLES Final Re sult [facility] documented in this encounter Visit Diagnoses Diagnosis Acute kidney failure with lesion of tubular necrosis (HCC) Acute kidney failure with lesion of tubular necrosis Iron deficiency anemia, not otherwise specified documented in this encounter Care Teams Credit Operations Processor Relationship Specialty Start Date End Date Savanah Garibay MD [address] [place] [address] PCP - General Geriatric Medicine 10/19/18 documented as of this encounter
--- OUTSIDE RECORDS SUMMARY | 2024-12-03 07:40 | XMS_ITS | Encounter Summary ---
Author Organization [facility] Address [address] [place] [address] Phone Care Team Providers Care Video Presentation Operator Name Role Phone Savanah Garibay MD Primary Care Prov ider Reason for Visit * Reason Comments Med Refill Encounter Details Date Type Department Care Team (Late st Contact Info) Description 11/28/2022 Refill [facility] [address] [place] [address] Daisy Rojas MD [address] [place] [address] Social History Tobacco Use Types [...] on filedocumented in this encounter Care Teams Video Presentation Operator Relationship Specialty Start Date End Date Savanah Garibay MD [address] [place] [address] PCP - General Geriatric Medicine 10/19/18 documented as of this encounter
--- OUTSIDE RECORDS SUMMARY | 2024-12-03 07:40 | XMS_ITS | Encounter Summary ---
Author Organization [facility] [email or web address] Address [address] [place] [address] Phone Care Team Providers Care Almond Blancher Hand Name Role Phone Savanah Garibay MD Primary Care Prov ider Encounter Details Date Type Department Care Team (Late st Contact Info) Description 08/01/2018 Orders Only [facility] [address] [place] [address] Hypertensive heart AND chronic kidney [...] (HCC) documented in this encounter Care Teams Almond Blancher Hand Relationship Specialty Start Date End Date Savanah Garibay MD [address] [place], [place] [address] PCP - General Geriatric Medicine 10/19/18 documented as of this encounter
--- OUTSIDE RECORDS SUMMARY | 2024-12-03 07:40 | XMS_ITS | Encounter Summary ---
Author Organization [facility] Address [address] [place] [address] Phone Care Team Providers Care Test Administrator Name Role Phone Savanah Garibay MD Primary Care Prov ider Reason for Visit * Reason Comments Med Refill Encounter Details Date Type Department Care Team (Late st Contact Info) Description 06/13/2022 Refill [facility] [address] [place] [address] Daisy Rojas MD [address] [place] [address] Social History Tobacco Use Types [...] on filedocumented in this encounter Care Teams Test Administrator Relationship Specialty Start Date End Date Savanah Garibay MD [address] [place] [address] PCP - General Geriatric Medicine 10/19/18 documented as of this encounter
--- OUTSIDE RECORDS SUMMARY | 2024-12-03 07:40 | XMS_ITS | Encounter Summary ---
Author Organization [facility] Address [address] [place] [address] Phone Care Team Providers Care Clinical Data Coordinator Name Role Phone Savanah Garibay MD Primary Care Prov ider Encounter Details Date Type Department Care Team (Late st Contact Info) Description 12/25/2019 Orders Only [facility] [address] [place] [address] Daisy Rojas MD [address] [place] [address] Stage 5 chronic kidney disease [...] (HCC) documented in this encounter Care Teams Clinical Data Coordinator Relationship Specialty Start Date End Date Savanah Garibay MD [address] [facility] [address] [place] [address] PCP - General Geriatric Medicine 10/19/18 documented as of this encounter
--- OUTSIDE RECORDS SUMMARY | 2024-12-03 07:40 | XMS_ITS | Encounter Summary ---
Author Organization [facility] Address [address] [place] [address] Phone Care Team Providers Care Milk And Cream Grader Name Role Phone Savanah Garibay MD Primary Care Prov ider Reason for Visit * Reason Comments Med Refill Encounter Details Date Type Department Care Team (Late st Contact Info) Description 03/15/2022 Refill [facility] [address] [place] [address] Juana Castellon CNP Social History [...] on filedocumented in this encounter Care Teams Milk And Cream Grader Relationship Specialty Start Date End Date Savanah Garibay MD [address] [place] [address] PCP - General Geriatric Medicine 10/19/18 documented as of this encounter
--- OUTSIDE RECORDS SUMMARY | 2024-12-03 07:40 | XMS_ITS | Encounter Summary ---
Author Organization [facility] Address [address] [place] [address] Phone Care Team Providers Care Author Agent Name Role Phone Savanah Garibay MD Primary Care Prov ider Reason for Visit * Reason Comments Med Refill Encounter Details Date Type Department Care Team (Late st Contact Info) Description 10/12/2022 Refill [facility] [address] [place] [address] Daisy Rojas MD [address] [place] [address] Social History Tobacco Use [...] on filedocumented in this encounter Care Teams Author Agent Relationship Specialty Start Date End Date Savanah Garibay MD [address] [place] [address] PCP - General Geriatric Medicine 10/19/18 documented as of this encounter
--- OUTSIDE RECORDS SUMMARY | 2024-12-03 07:40 | XMS_ITS | Encounter Summary ---
Author Organization [facility] [email or web address] Address [address] [place] [address] Phone Care Team Providers Care Strike Plate Attacher Name Role Phone Savanah Garibay MD Primary Care Prov ider Reason for Visit * Reason Comments Med Refill Encounter Details Date Type Department Care Team (Late st Contact Info) Description 06/01/2021 Refill [facility] [address] [place] [address] Juana Castellon CNP Social History [...] on filedocumented in this encounter Care Teams Strike Plate Attacher Relationship Specialty Start Date End Date Savanah Garibay MD [address] [place] [address] PCP - General Geriatric Medicine 10/19/18 documented as of this encounter
--- OUTSIDE RECORDS SUMMARY | 2024-12-03 07:40 | XMS_ITS | Encounter Summary ---
Author Organization [facility] Address [address] [place] [address] Phone Care Team Providers Care Blood Tester Fowl Name Role Phone Savanah Garibay MD Primary Care Prov ider Reason for Visit * Reason Comments Med Refill Encounter Details Date Type Department Care Team (Late st Contact Info) Description 10/27/2020 Refill [facility] [address] [place] [address] Daisy Rojas MD [address] [place] [address] Social History Tobacco Use Types [...] on filedocumented in this encounter Care Teams Blood Tester Fowl Relationship Specialty Start Date End Date Savanah Garibay MD [address] [place] [address] PCP - General Geriatric Medicine 10/19/18 documented as of this encounter
--- OUTSIDE RECORDS SUMMARY | 2024-12-03 07:40 | XMS_ITS | Clinical Summary ---
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 01/03/2018 Status [...] Encounters Date Type Department Care Team Description 11/14/2024 External Device Data STL ABSTRACTION Provider, Abstract 11/13/2024 External Device Data ST[facility] ABSTRACTION Provider, Abstract 10/02/2024 External Device Data [facility] ABSTRACTION Provider, Abstract 09/11/2024 External Device Data [facility] ABSTRACTION Provider, Abstract from Last 3 Months Immunizations Immunization Administration [...] on file Legal Sex Male 3:36 AM 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 Gender Identity Not on file Sexual Orientation [...] 12/27/2017, Additional history exists COVID-19 Vaccine (3 2023-2 5 season) 2023 07/30/2020, 06/30/2020 FIT-DNA [...] Screening 05/11/2032 Medical Devices Implanted Type Area Telecommunications Facility Examiner Device Identifier Shelf Expiration Date Model / Serial / Lot Cath Dialysis Glidepath 14.5fr 23cm Std [id number]/22/202 0 Implanted:Qty: 1 on 01/01/2020 by Sudha Montes MD Catheter Right: Chest CR [employer] [id number] 04/10/2021 [id number] / / [id number] Cath Pd Jez Curl 2cuff 23365-312 - [id number] Implanted:Qty: 1 on 01/10/2020 by Adryan Witt DO Catheter N/A: Abdomen [employer] [id number] 07/08/2024 [id number] / / [id number] Cath Dialysis Glidepath 14.5fr 24cm Std [id number] - [id number] Implanted:Qty: 1 on 01/23/2024 by Willie Uma[facility] MD at [facility] Catheter Right: Chest BARD [employer] [id number] 07/09/2025 [id number] / / [id number] Hemostatic Surgifoam Sz100 1973 - [id number] Implanted:Qty: 1 on 12/29/2017 by Martinez Rodrgiues MD Hemostatic N/A: Chest [employer] 09/19/20211973 / / [id number] Ring Vein Marking 10mm 35-8931 - [id number] Implanted:Qty: 2 on 12/29/2017 by Martinez Rodrigues MD Other N/A: Chest TELEFLEX- PILL WECK ARRIBA L P 80-4765 / / Description:scan # [id number] Sealant Fibrin Evicel 5ml 390 - [id number] Implanted:Qty: 1 on 12/29/2017 by Martinez Rodrigues MD Other N/A: Heart [employer] 08/08/2020 [id number] / / [id number] De Lancey Ptfe Thck 1.6mmx2.5x10.2cm [id number] - [id number] Implanted:Qty: 1 on 12/29/2017 by Martinez Rodrigues MD Tissue N/A: Heart CR [employer] 10/06/2022 [id number] / / [id number] Procedures Procedure Name Priority Date/Time Associated Diagnosis Comments COLONOSCOPY REPORT 05/11/2022 9: 02 AM CLINICAL 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 HEMOGLOBIN A1C Routine 06/20/2020 9:34 AM CLINICAL 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 MICROALBUMIN/CREATIN INE RATIO, RANDOM UR Routine 10/23/2019 12:52 PM CDT LIPID PANEL Routine 10/23/2019 12:49 PM CDT from Last 3 Months or Most Recently Relevant to Health Maintenance Results * COLONOSCOPY REPORT (05/11/2022 9:02 AM CLINICAL 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) Narrative Procedure Note Gwendolyn Marks MD (John) - 05/11/2022 9:01 AM CST [facility] Patient Name: Jose Guadalupe Claudio Procedure Date: [...] In: Scope Out: 100 HUSAM Carter Gwendolyn (Yolie Marks MD GI PROCEDURE ORDERABLES Final Result * (ABNORMAL) HEMOGLOBIN A1C (06/20/2020 9:34 AM CLINICAL 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) HEMOGLOBIN A1C 6.1(H) <=5.6 % 06/20/2020 10:34 AM [facility] EST. AVG GLUCOSE, A1C 128 mg/dL 06/20/2020 10:34 AM [facility] Blood Collection / Unknown 06/20/2020 9:34 AM CLINICAL 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 06/20/2020 9:37 AM CLINICAL 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 Narrative [facility] - 06/20/2020 10:34 AM CLINICAL 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 HGB A1C INTERPRETATION NORMAL: <5.7% PRE-DIABETES: 5.7 - 6.4% DIABETES: 6.5% OR GREATER Falsely low A1C measurements can occur when: 1. Anemia and/or hemolytic anemia is present. 2. Hemoglobin variants present. 3. Renal failure. 4. Transfusion of blood product in the last 120 days. We recommend ordering a fructosamine test([id number]) to more accurately assess glycemic status if any of the above conditions are present. Savanah Garibay MD CHEMISTRY ORDERABL ES Final Result [facility] CLIA# [id number] [address] [place] [address] [facility] [place] CLIA# [id number] [address] [place] [address] * MICROALBUMIN/CREATININE RATIO, RANDOM UR (10/23/2019 12:52 PM CDT) MICROALBUMIN, URINE >440.0 No Reference Range mg/dL 10/23/2019 6:47 PM CDT [facility] CREATININE, URINE 76.4 40.0 - 278.0 mg/dL 10/23/2019 6:47 PM CDT [facility] Comment:Reference Range vari es with fluid intake and diet. Urine URINE SPECIMEN OBTAINED BY CLEAN CATCH PROCEDURE / Unknown Collection / Unknown 10/23/2019 12:52 PM CDT 10/23/2019 3:00 PM CDT Narrative [facility] - 10/23/2019 6:47 PM CDT Condition Microalbumin/Creat ratio Normal Males <17 Normal Females <25 Microalbuminuria Males 17-299 Microalbuminuria Females 25-299 Overt proteinuria >=300 Savanah Garibay MD URINE ORDERABLES F inal Result [facility] CLIA# [id number] [address] [place] [id number] * (ABNORMAL) LIPID PANEL (10/23/2019 12:49 PM CDT) CHOLESTEROL 137 <200 mg/dL 10/23/2019 4:25 PM CDT [facility] TRIGLYCERIDE 35 <150 mg/dL 10/23/2019 4:25 PM CDT [facility] HDL 62(H) 40 - 59 mg/dL 10/23/2019 4:25 PM CDT [facility] LDL CALCULATED 68 <100 mg/dL 10/23/2019 4:25 PM CDT [facility] NON-HDL CHOLESTEROL 75 <130 mg/dL 10/23/2019 4:25 PM CDT [facility] Blood Venipuncture / Unknown 10/23/2019 12:49 PM CDT 10/23/2019 3:00 PM CDT Narrative [facility] - 10/23/2019 4:25 [...] Garibay MD CHEMISTRY ORDERABL ES Final Result [facility] IA# [id number] [address] [place] [address] from Last 3 Months or Most Recently Relevant to Health Maintenance Insurance RX [facility] Medicare Part D [facility] MEDICARE HMO [id number] [id number] Advance Directives For more information, please contact: [phone] * Full Code (Latest Code Status on [...] 12:59 AM 10/08/2022 8:54 PM Care Teams Hand Scudder Relationship Specialty Start Date End Date Yaniv Moe MD [address] [place] [address] PCP - General Family Practice 10/27/23
--- OUTSIDE RECORDS SUMMARY | 2024-12-03 07:40 | XMS_ITS | Encounter Summary ---
Author Organization [facility] Address [address] [place] [address] Phone Care Team Providers Care Saw Repairer Name Role Phone Savanah Garibay MD Primary Care Prov ider Reason for Visit * Reason Comments Med Refill Encounter Details Date Type Department Care Team (Late st Contact Info) Description 05/15/2021 Refill [facility] [address] [place] [address] Juana Castellon CNP Social History [...] on filedocumented in this encounter Care Teams Saw Repairer Relationship Specialty Start Date End Date Savanah Garibay MD [address] [place] [address] PCP - General Geriatric Medicine 10/19/18 documented as of this encounter
--- OUTSIDE RECORDS SUMMARY | 2024-12-03 07:40 | XMS_ITS | Encounter Summary ---
Author Organization [facility] Address [address] [place] [address] Phone Care Team Providers Care Table Assembler Metal Name Role Phone Savanah Garibay MD Primary Care Prov ider Reason for Visit * Reason Comments Med Refill Encounter Details Date Type Department Care Team (Late st Contact Info) Description 04/20/2021 Refill [facility] [address] [place] [address] Juana Castellon CNP Social History [...] on filedocumented in this encounter Care Teams Table Assembler Metal Relationship Specialty Start Date End Date Savanah Garibay MD [address] [place] [address] PCP - General Geriatric Medicine 10/19/18 documented as of this encounter
[2024-12-03] MEDS: hyDRALAzine 20 mg/mL INJ 1 mL IVP (07:54)
[2024-12-03] MEDS: nitroglycerin drip 50 MG/250 ML PREMIX IV (07:54)
[2024-12-03] MEDS: labetalol 5 mg/mL SDV 20mL 10 MG IVP (07:54)
[2024-12-03 07:56] LABS: Hematocrit 30.2 % (37-53); Hemoglobin 9.70 g/dL (11.27-16.99); Mean Corpuscular HGB Conc 32.1 g/dL (30-55); Mean Corpuscular Hemoglobin 30.7 pg (27-33); Mean Corpuscular Volume 95.6 fl (82-101); Nucleated Red Blood Cells % 0 %; Platelet Count 265 10^3/cmm (157-399); Red Blood Count 3.16 10^6/uL (3.85-5.65); White Blood Count 26.46 10^3/uL (3.29-11.43)
--- NOTE | 2024-12-03 07:56 | CT_ITS ---
WS: [id number] CTA OF THE CHEST WITH PULMONARY EMBOLISM PROTOCOL TECHNIQUE: High-resolution contrast enhanced CTA of the chest with coronal and sagittal reformatted images with pulmonary embolism protocol. MIP images are also reviewed. CLINICAL INFORMATION: Hypoxia COMPARISON: 11/12/2024 DLP: 397.[address] scans at [facility] use at least one of these dose optimization techniques: automated exposure control; mA and/or kV adjustment per patient size (includes targeted exams where dose is matched to clinical indication); or iterative reconstruction. FINDINGS: Proximal main pulmonary arteries are normal. Normal segmental and subsegmental pulmonary arteries. No evidence of pulmonary embolus. Prior sternotomy. RIGHT central venous catheter. Normal sized mediastinal and parabronchial lymph nodes. Normal caliber thoracic aorta. Aortic calcification. Coronary calcification. Splenic artery calcification. Adrenal glands are normal. Small esophageal hiatal hernia. Small splenule. Mild thoracic curve. Mild thoracic kyphosis. CT/CT angio chest PE protcl [id number] IMPRESSION: 1. No evidence of pulmonary embolus. 2. Trace pleural fluid. Compressive atelectasis in the lung bases LEFT greater than RIGHT. A few patchy opacities in the LEFT lower lobe similar to previous. Few patchy opacities in the lingula. Recommend correlation for pneumonia. 3. No other acute findings.
[2024-12-03 08:14] LABS: Troponin(5th) Baseline 319 ng/L (0-15)
[2024-12-03 08:19] LABS: Lactic Sepsis W/Reflex 1.3 mmol/L (0.5-2.2)
[2024-12-03 08:20] LABS: Alanine Aminotransferase 13 U/L (0-41); Albumin Level 3.6 g/dL (3.5-5.2); Alkaline Phosphatase 85 U/L (40-130); Anion Gap 20.2 (5-19); Aspartate Amino Transferase 18 U/L (0-40); Blood Urea Nitrogen 34 mg/dL (6-20); Calcium 9.1 mg/dL (8.5-10.5); Carbon Dioxide 24 mmol/L (22-29); Chloride 97 mmol/L (98-107); Creatinine Clr Calc Pharmacy 22.1637; Globulin 3.4 g/dL (1.3-4.6); Glucose 323 mg/dL (65-115); Osmolality Calculated 304 mOsm/kg (285-295); Potassium 4.2 mmol/L (3.5-5.1); Sodium 137 mmol/L (136-145); Total Protein 7.0 g/dL (6.6-8.7)
[2024-12-03 08:27] LABS: ABG PCO2 36.5 mmHg (35-45); ABG PH Result 7.50 (7.35-7.45); Alveolar-Arterial Oxygen Gradi 8.8 mmHg (5-10); Arterial Blood Gas Hematocrit 28.1 % (42-52); Blood Gas Allen Test Pos; Blood Gas Operator Identificat BROMA; Blood Gas Sample Site Radial, right; Blood Gas Sample Type Arterial; Carboxyhemoglobin 2.2 %THgb (0.4-20.1); Glucose Level-ABG 327.0 mg/dL (70-115); HCO3 ABG 28.5 mmol/L (22-26); Ionized Calcium Level - ABG 1.2 mmol/L (1.1-1.4); Methemoglobin 0.5 % (0.4-1.5); Oxygen Saturation ABG 73.9; PO2 ABG 37.9 mmHg (80.0-100.0); Potassium Level - ABG 3.9 mmol/L (3.5-5.0); Sodium Level - ABG 138.0 mmol/L (131-143)
[2024-12-03 08:34] LABS: Ketone (Acetest) Serum Negative (Negative)
[2024-12-03] MEDS: piperacillin-tazobactam 3.375 GM in sodium chloride 0.9% (plus) 50 ML IV ×2 (08:43→20:27)
[2024-12-03 08:50] LABS: ABG PCO2 35.1 mmHg (35-45); ABG PH Result 7.51 (7.35-7.45); Arterial Blood Gas Hematocrit 26.9 % (42-52); Blood Gas Allen Test Pos; Blood Gas Sample Type Arterial; Carboxyhemoglobin 1.3 %THgb (0.4-20.1); Glucose Level-ABG 361.0 mg/dL (70-115); HCO3 ABG 27.8 mmol/L (22-26); Ionized Calcium Level - ABG 1.1 mmol/L (1.1-1.4); Methemoglobin 0.7 % (0.4-1.5); Oxygen Saturation ABG > 99.1; PO2 ABG 197.0 mmHg (80.0-100.0); Potassium Level - ABG 4.1 mmol/L (3.5-5.0); Sodium Level - ABG 136.0 mmol/L (131-143)
[2024-12-03 08:51] LABS: Alveolar-Arterial Oxygen Gradi 61.3 mmHg (5-10); Blood Gas Operator Identificat MONRO; Blood Gas Sample Site Radial, left; PO2 FiO2 Ratio Arterial Blood 197
--- NOTE | 2024-12-03 09:15 | PM.HP ---
Providers/Chief Complaint Admitting Physician: Chris Arnold Primary Care Provider: Yaniv Moe MD Chief Complaint: SOB - weakness History of Present Illness Jose Guadalupe Claudio is a 44 year old gentleman with end-stage renal disease (ESRD) on thrice-weekly hemodialysis (patient clarifies Tuesday/Tuesday/Tuesday) who presents after the sudden onset of dyspnea and generalized weakness earlier today. Emergency medical services documented oxygen saturations in the 60 % range; supplementation with a non-rebreather mask, then bilevel positive airway pressure (BiPAP), improved saturation only into the low 70 % during transport. In the emergency department (ED) he remained on BiPAP and was started on an intravenous nitroglycerin infusion after blood pressure measured 202/112 mmHg. Past admissions for decompensated congestive heart failure (CHF) were noted earlier this month. He denies fever, chills, sore throat, cough, or sputum production, though white blood cell (WBC) count is markedly elevated at 26 ? 10?/?L. Chest X-ray shows mild [id number] infiltrate versus chronic changes. He reports full adherence to medications and dialysis, typically removing 3.5 kg per session. Home blood pressures usually run ~140/90 mmHg; clonidine is taken only PRN and infrequently in the past two weeks. Reported ?dry? weight is 67 kg, but admission weight is 75 kg. Urine output is minimal. He drinks approximately one beer daily and denies current tobacco use. No known allergies. Review of Systems Const: Denies: fever(s), chills, body aches or malaise ENMT: Denies: throat pain Card: Denies: chest pain, edema, pre-syncope or dyspnea on exertion Resp: Reports: dyspnea and other (No couth, some phlegm production); Denies: change in phlegm color or hemoptysis GI: Denies: abdominal pain, nausea, vomiting, diarrhea, constipation, hematochezia or melena : Denies: flank pain, difficulty urinating, urinary frequency or hematuria Musc: Denies: back pain, joint swelling or joint redness Skin/Breast: Denies: rash or new lesions Neuro: Denies: headache(s) or confusion Medications/Allergies Home Medications ?Medication ?Instructions ?Recorded ?Confirmed ?Last Taken ?Type buspirone 5 mg tablet 5 mg PO TID 06/09/24 11/13/24 10/13/24 07:00 History hydralazine 100 mg tablet 100 mg PO TID 06/09/24 11/13/24 10/13/24 07:00 History loperamide 2 mg capsule See Rx Instructions .Route .COMPLEX 06/09/24 11/13/24 10/13/24 08:00 History mirtazapine 15 mg tablet 7.5 mg PO QPM 06/09/24 11/13/24 10/12/24 19:00 History pantoprazole 40 mg tablet,delayed 40 mg PO DAILY 06/09/24 11/13/24 10/13/24 History release ropinirole 0.5 mg tablet 0.5 mg PO QPM 06/09/24 11/13/24 10/12/24 19:00 History sevelamer carbonate 800 mg tablet See Rx Instructions .Route .COMPLEX 06/09/24 11/13/24 10/13/24 08:00 History venlafaxine 150 mg 150 mg PO DAILY 06/09/24 11/13/24 10/13/24 History capsule,extended release 24 hr clopidogrel 75 mg tablet 75 mg PO DAILY 30 days #30 tabs 08/22/24 11/13/24 10/13/24 Rx sodium bicarbonate 325 mg tablet 325 mg PO DAILY PRN Stomach ACID 09/19/24 11/13/24 Unknown History vit B,C-folic ac 800 mcg-zinc 12.5 See Rx Instructions .Route .COMPLEX 10/13/24 11/13/24 Unknown History mg-selen-D3 2,000 unit-vit E tablet (RenaPlex-D) apixaban 5 mg tablet (Eliquis) 5 mg PO BID@0900,2100 #60 tabs 10/18/24 11/13/24 Unknown Rx clonidine HCl 0.3 mg tablet 0.3 mg PO TID PRN bp 10/29/24 11/13/24 Unknown History insulin lispro 100 unit/mL 15 unit SUBCUT TID 11/13/24 11/13/24 Unknown History subcutaneous pen losartan 50 mg tablet 100 mg PO DAILY 11/13/24 11/13/24 Unknown History megestrol 400 mg/10 mL (40 mg/mL) 400 mg PO BID 11/13/24 11/13/24 Unknown History oral suspension carvedilol 25 mg tablet 50 mg (2 x 25 mg) PO BID 30 days 11/15/24 11/13/24 Unknown Rx #120 tabs isosorbide mononitrate 30 mg 30 mg PO DAILY #30 tabs 11/15/24 Unknown Rx tablet,extended release 24 hr amlodipine 5 mg tablet 5 mg PO DAILY 12/03/24 12/03/24 12/02/24 18:00 History gabapentin 300 mg capsule 300 mg PO BEDTIME 12/03/24 12/03/24 12/02/24 20:00 History Allergies Allergy/AdvReac Type Severity Reaction Status Date / Time No Known Allergies Allergy Verified 10/29/24 14:54 PFSH Acute PFSH: Medical History Hypertensive urgency Left ventricular systolic dysfunction (LVSD), NYHA class 3 Chronic hypertension ESRD (end stage renal disease) Diabetic peripheral neuropathy associated with type 2 diabetes mellitus Ingrowing toenail of left foot Hematoma of leg Non-pressure chronic ulcer of 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 Bilateral pes planus Medical non-compliance Closed right trimalleolar fracture Restless leg syndrome Peritonitis CAD (coronary artery disease) Depression End-stage renal disease on peritoneal dialysis Anemia Surgical History Hx of CABG Social History Smoking and tobacco/nicotine status: current every day tobacco/nicotine user (Cannabis/ Quit cigarettes 5 years ago) Alcohol intake: never Substance/Drug Use: current Other substance/drug use details: Medical marijuana Vitals/I&O/Wt Last Vital Signs Temp 98.8 F 12/03/24 07:33 Pulse 79 12/03/24 08:45 Resp 34 H 12/03/24 08:45 BP 201/106 12/03/24 08:45 Pulse Ox 100 12/03/24 08:45 O2 Del Method BiPAP 12/03/24 08:45 O2 Flow Rate 15 12/03/24 07:39 FiO2 100 12/03/24 08:00 12/02/24 12/03/24 12/03/24 22:59 06:59 14:59 Intake Total 0.725 / 0.725 Balance 0.725 / 0.725 Weight last 48 hrs Weight 72.575 kg Physical Exam Const: COMMON NORMALS: patient oriented x3 and alert GENERAL APPEARANCE: cooperative ORIENTATION/CONSCIOUSNESS: Yes awake HENMT: COMMON NORMALS: oropharynx normal Neck/C-Spine: COMMON NORMALS: no JVD Resp: AUSCULTATION: crackles (Min crackles at bases) Cardio: COMMON NORMALS: no JVD, regular rhythm, S1 normal heart sound present, S2 normal heart sound present and No murmurs present (Cardio) RHYTHM: regular rhythm HEART SOUNDS: S1 normal heart sound present and S2 normal heart sound present GI: COMMON NORMALS: Normal to inspection, nondistended, normoactive bowel sounds present, Soft to palpation and non-tender PALPATION: Yes Soft to palpation Extremity: COMMON NORMALS: no joint enlargement and no pedal edema Neuro: COMMON NORMALS: patient oriented x3 and moves all extremities SENSORIUM/ORIENTATION: Yes alert Skin: COMMON NORMALS: no rashes or lesions noted GENERAL SKIN EXAM: no rashes or lesions noted Data 12/03/24 07:48 12/03/24 07:48 Micro: Microbiology 12/03/24 08:40 Blood Culture - Preliminary Blood SPECIMEN COLLECTED 12/03/24 08:16 Blood Culture - Preliminary Blood SPECIMEN COLLECTED A&P Assessment and plan 1. Acute hypoxemic respiratory failure: Presented with O2 saturation in the 60s requiring non-rebreather then BiPAP. Differential includes volume overload from CHF versus infectious etiology; hypoxemia improved on BiPAP. Reviewed vitals, CBC, ABG, repeat ABG, CMP, EKG on my interpretation with nonspecific changes, pending official read. Reviewed chest x-ray, CTA. Reviewed ED provider note, discussed with ED provider. - Continue BiPAP support, wean as tolerated while maintaining oxygenation. - Treat underlying conditions with acute CHF, in the setting of his ESRD, possible pneumonia with possible hospital-acquired pneumonia with recent hospitalizations - Respiratory therapy to assist with treatment. - CLD for now 2. Hypertensive urgency: Blood pressure 202/112 mmHg, as high as 220/123 this morning. With shortness of breath; contributory to acute systolic CHF decompensation and respiratory failure. - Continue nitroglycerin drip in intensive care; target systolic BP <=180 mmHg. Resume home medications. Requested to confirm. He takes clonidine PRN, but has not taken it for any consecutive stretches recently. - Optimize blood pressure control per inpatient protocol. 3. Acute CHF: I cute systolic CHF: Possibly secondary to hypertensive urgency, versus fluid overload in setting of ESRD with known low EF. States has not missed any dialysis, dry weight is around 67 kg. Currently 75 kg. Normally 3-1/2 L removed during dialysis. He does not necessarily quantitatively limit fluid intake, but discussed with him attempts to limit. He has only minimal urine output. History of systolic CHF (EF 35 %); admission weight 8 kg above stated dry weight; fluid overload suspected contributor to dyspnea. - Fluid restrict to 1 L per day. -Complete troponin EKG series to assess for ischemia - Monitor intake and output. - Extra hemodialysis session today to remove excess fluid. 4. ESRD (end stage renal disease) on dialysis: ESRD on regular HD on kidney transplant list; possible inadequate fluid removal leading to volume overload. Reports dry weight is 67 kg. - Arrange extra hemodialysis session today (per nephrology). - Fluid restrict to 1 L Plan: Possible pneumonia : WBC 26 ? 10?/?L and mild right-sided infiltrate on chest X-ray raise concern for superimposed pneumonia; pulmonary versus CHF etiology uncertain. - Continue antibiotic therapy initiated, continue to better coverage with Zosyn and vancomycin for possible hospital-acquired pneumonia. - Collect sputum culture. - Obtain MRSA PCR (nasal) per protocol. Coronary artery disease with chronic troponin elevation : Known CAD with baseline mildly elevated troponin attributed to renal failure; monitoring needed to rule out acute ischemia. - Complete serial troponin panel for cardiac ischemia assessment. - Type 2 diabetes mellitus: Consistent carb diet, monitor POC glucose, sliding scale insulin - Hypertension - Coronary artery disease: plavix, carveduilol - Anemia of chronic disease - Diabetic neuropathy - Restless leg syndrome - Depression - Hx of PE: on Eliquis PDMP PDMP Reviewed: Not Reviewed Attestations Medical Necessity Statement*: Admission over 2 midnights anticipated for assessment management of acute hypoxic respiratory failure, hypertensive urgency, acute CHF and gentleman with underlying ESRD, possible hospital-acquired pneumonia with recent hospitalizations. Coding Level of Care Code Critical Care >/= 30 minutes Critical care time (in minutes): 35 The high probability of a clinically significant, sudden or life threatening deterioration, as referenced in this documentation, required my full and direct attention, intervention and personal management. The critical care time shown is in addition to time spent performing any reported separately billable procedures and includes the following: [x] Data and vital sign review and interpretation [x] Patient assessment, examination and intervention [x] Medication orders and management [x] Patient/Family updates as able [x] Care Coordination and Documentation. Diagnoses Acute hypoxemic respiratory failure J96.01 Hypertensive urgency I16.0 Acute CHF I50.9 ESRD (end stage renal disease) on dialysis N18.6; Z99.2
[2024-12-03] MEDS: iohexol 350 mg/mL 500 mL Btl (per mL) IV (09:16)
[2024-12-03 09:26] LABS: Troponin 5 2HR 318.8 ng/L (0-15); Troponin 5 2HR Delta -0.2 ABS# (0-10)
--- NOTE | 2024-12-03 10:08 | PC.PHAR ---
I called Patient's to confirm medication. states Patient took morning medications 30 minutes before the ambulance came .
--- NOTE | 2024-12-03 10:23 | ECG_ITS ---
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 Measurements Intervals [place] Rate: 77 P: 60 GA: 157 QRS: 40 QRSD: 102 T: 29 QT: 411 QTc: 465 Interpretive Statements SINUS RHYTHM POSSIBLE LEFT ATRIAL ENLARGEMENT [-0.1mV P-WAVE IN V1/V2] POSSIBLE INFERIOR MYOCARDIAL INFARCTION , PROBABLY OLD [30 ms Q WAVE IN II/aVF] Compared to ECG 12/03/2024 07:37:09 Myocardial infarct finding now present T-wave abnormality no longer present Electronically Signed On 12-04-2024 18:34:21 CDT by Ursula Lyn M.D. [id number] [id number]
[2024-12-03] MEDS: heparin, porcine 1,000 unit/mL INJ 10 mL 1000 UNIT IV (10:25)
[2024-12-03] MEDS: pantoprazole 40 mg SDV IVP (11:50)
[2024-12-03 13:46] LABS: Troponin 5 6HR 368.4 ng/L (0-15); Troponin 5 6HR Delta 49.4 ng/L (0-12)
--- NOTE | 2024-12-03 14:12 | ECG_ITS ---
[facility] Test Date: 2024-12-03 Pat Name: Jose Guadalupe Claudio Department: Room: [facility] Gender: Male [place]: : 1980 Requested By: Abhinav Lentz Order Number: [id number] Cristobal MD: Ursula Lyn M.D. Measurements Intervals [place] Rate: 71 P: 62 [place]: 144 QRS: 35 QRSD: 106 T: 60 QT: 446 QTc: 485 Interpretive Statements SINUS RHYTHM POSSIBLE LEFT ATRIAL ENLARGEMENT [-0.1mV P-WAVE IN V1/V2] PROBABLE INFERIOR MYOCARDIAL INFARCTION , PROBABLY OLD [35 ms Q WAVE IN II/aVF] Compared to ECG 12/03/2024 10:23:[address] changes in the anterolateral leads No significant changes Electronically Signed On 12-04-2024 18:27:39 CDT by Ursula Lyn M.D. [id number]
--- NOTE | 2024-12-03 15:07 | PHA.VACGOAL ---
Vancomycin Goal - Goal Vancomycin Goal:: 15-20 mg/L Vancomycin Indication:: Other - Therapy Current therapy:: Pip/Tazo Day of therpy:: Day []of [] . Actual body weight (kg): 164 lb 3.2 oz - Data Labs: WBC 26.46 10^3/uL (3.29-11.43) H 12/03/24 07:48 RBC 3.16 10^6/uL (3.85-5.65) L 12/03/24 07:48 Hgb 9.70 g/dL (11.27-16.99) L 12/03/24 07:48 Hct 30.2 % (37-53) L 12/03/24 07:48 MCV 95.6 fl (82-101) 12/03/24 07:48 MCH 30.7 pg (27-33) 12/03/24 07:48 MCHC 32.1 g/dL (30-55) 12/03/24 07:48 RDW 18.6 % (12.1-15.1) H 12/03/24 07:48 Sodium 137 mmol/L (136-145) 12/03/24 07:48 Potassium 4.2 mmol/L (3.5-5.1) 12/03/24 07:48 Chloride 97 mmol/L (98-107) L 12/03/24 07:48 Carbon Dioxide 24 mmol/L (22-29) 12/03/24 07:48 Anion Gap 20.2 (5-19) H 12/03/24 07:48 BUN 34 mg/dL (6-20) H 12/03/24 07:48 Creatinine 4.5 mg/dL (0.7-1.2) H 12/03/24 07:48 GFR Calculation 14.2 mL/min (90-130) L 12/03/24 07:48 Last dialysis session:: Last session (TODAY 12/03) Treatment plan:: new consult Regimen:: INITIAL LOADING DOSE OF 1750 MG (25 MG/KG) PER DOSING PROTOCOL. WILL DOSE PER HD SCHEDULE. Follow up:: WILL CONTINUE TO MONITOR AND FOLLOW UP DAILY
[2024-12-03] MEDS: heparin, porcine 1,000 unit/mL INJ 10 mL 10000 UNIT INTRACATH (15:15)
[2024-12-03] MEDS: vancomycin 1,750 MG/350 ML PIGGYBACK 175 MG IV (15:29)
[2024-12-03 16:00] LABS: Glucose Urine UA 1+ (Normal); Nitrate Urine Negative (Negative); Specific Gravity, Urine 1.014 (1.005-1.030)
--- NOTE | 2024-12-03 16:01 | PC.NURSE ---
1445 -- Patient diaphoretic and reports just does not feel good. EKG done. Blood pressure 190s systolic, restarted NTG at 10. 1453 -- Blood glucose 632, juice and jello given to patient. Notified Dr. Arnold of patient status change. States to use the Nitro as needed and would look over patients home meds and restart as needed. 1540 -- IV to left hand pulled out due to dressing not adhering due to patient sweating. Restarted 20G IV to left hand and 20G ultrasound guided IV started per HEENA Murphy to Right upper arm.
[2024-12-03 16:05] LABS: Add Urine Microscopic? YES
[2024-12-03 16:18] LABS: MRSA PCR OZH (swab) MRSA Detected (Negative)
--- NOTE | 2024-12-03 20:55 | PM.CONSULT ---
Providers/Reason For Consult Consulting Physician/Specialty*: kommana/Nephrology Reason for Consult*: ESRD Attending Physician: Chris Arnold Primary Care Provider: Yaniv Moe MD History of Present Illness History of Present Illness Jose Guadalupe Claudio is a 44 year old male 44-year-old male with end-stage renal disease on dialysis on TTS schedule presented due to shortness of breath and generalized weakness. Patient was hypoxic to 60%. Lab data reviewed. Patient was placed on BiPAP due to acute respiratory distress and admitted to ICU. Blood pressures elevated into the systolic 200s in the ED. Review of Systems Narrative: negative Medications/Allergies Home Medications ?Medication ?Instructions ?Recorded ?Confirmed ?Last Taken ?Type buspirone 5 mg tablet 5 mg PO TID 06/09/24 12/03/24 12/03/24 07:00 History hydralazine 100 mg tablet 100 mg PO TID 06/09/24 12/03/24 12/03/24 07:00 History loperamide 2 mg capsule See Rx Instructions .Route .COMPLEX 06/09/24 12/03/24 12/03/24 07:30 History mirtazapine 15 mg tablet 7.5 mg PO QPM 06/09/24 12/03/24 12/02/24 19:00 History pantoprazole 40 mg tablet,delayed 40 mg PO DAILY 06/09/24 12/03/24 12/03/24 07:30 History release ropinirole 0.5 mg tablet 0.5 mg PO QPM 06/09/24 12/03/24 12/02/24 19:35 History sevelamer carbonate 800 mg tablet See Rx Instructions .Route .COMPLEX 06/09/24 12/03/24 12/02/24 History venlafaxine 150 mg 150 mg PO DAILY 06/09/24 12/03/24 12/03/24 07:00 History capsule,extended release 24 hr clopidogrel 75 mg tablet 75 mg PO DAILY 30 days #30 tabs 08/22/24 12/03/24 12/03/24 07:30 Rx sodium bicarbonate 325 mg tablet 325 mg PO DAILY PRN Stomach ACID 09/19/24 12/03/24 12/03/24 07:00 History vit B,C-folic ac 800 mcg-zinc 12.5 See Rx Instructions .Route .COMPLEX 10/13/24 12/03/24 12/03/24 07:30 History mg-selen-D3 2,000 unit-vit E tablet (RenaPlex-D) apixaban 5 mg tablet (Eliquis) 5 mg PO BID@0900,2100 #60 tabs 10/18/24 12/03/24 12/02/24 Rx clonidine HCl 0.3 mg tablet 0.3 mg PO TID PRN bp 10/29/24 12/03/24 12/03/24 07:35 History insulin lispro 100 unit/mL 15 unit SUBCUT TID 11/13/24 12/03/24 12/02/24 History subcutaneous pen losartan 50 mg tablet 100 mg PO DAILY 11/13/24 12/03/24 12/03/24 07:30 History megestrol 400 mg/10 mL (40 mg/mL) 400 mg PO DAILY 11/13/24 12/03/24 12/03/24 07:35 History oral suspension carvedilol 25 mg tablet 50 mg (2 x 25 mg) PO BID 30 days 11/15/24 12/03/24 12/03/24 07:35 Rx #120 tabs isosorbide mononitrate 30 mg 30 mg PO DAILY #30 tabs 11/15/24 12/03/24 12/03/24 07:35 Rx tablet,extended release 24 hr amlodipine 5 mg tablet 5 mg PO DAILY 12/03/24 12/03/24 12/02/24 18:00 History gabapentin 300 mg capsule 300 mg PO BEDTIME 12/03/24 12/03/24 12/02/24 20:00 History Allergies Allergy/AdvReac Type Severity Reaction Status Date / Time No Known Allergies Allergy Verified 10/29/24 14:54 Current Medications Generic Name Dose Route Start Last Admin Trade Name Freq PRN Reason Stop Dose Admin Apixaban 5 mg 12/03/24 21:00 12/03/24 20:26 Apixaban 5 Mg Tablet PO 5 mg BID@0900,2100 JAQUELINE Administration Nitroglycerin/Dextrose 50 mg in 250 mls @ 0 mls/hr 12/03/24 07:45 12/03/24 20:18 Nitroglycerin Drip IV 85 mcg/min .Q0M JAQUELINE 25.5 mls/hr Protocol Titration Per Protocol Piperacillin Sod/Tazobactam 50 mls @ 12.5 mls/hr 12/03/24 20:00 12/03/24 20:27 Sod 3.375 gm/ Sodium Chloride IV 12.5 mls/hr Q12H JAQUELINE Administration Protocol Insulin Human Lispro 0 unit 12/03/24 12:00 12/03/24 20:21 Insulin Lispro 100 Unit/1 Ml SUBCUT Not Given WM&BEDTIME JAQUELINE Protocol Pantoprazole Sodium 40 mg 12/03/24 10:00 12/03/24 11:50 Pantoprazole 40 Mg Sdv IVP 40 mg Q24H JAQUELINE Administration PFSH Acute PFSH: Medical History (Updated 12/03/24 @ 10:04 by Abhinav Torres DO) Hypertensive urgency Left ventricular systolic dysfunction (LVSD), NYHA class 3 Chronic hypertension ESRD (end stage renal disease) Diabetic peripheral neuropathy associated with type 2 diabetes mellitus Ingrowing toenail of left foot Hematoma of leg Non-pressure chronic ulcer of 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 Bilateral pes planus Medical non-compliance Closed right trimalleolar fracture Restless leg syndrome Peritonitis CAD (coronary artery disease) Depression End-stage renal disease on peritoneal dialysis Anemia Surgical History Hx of CABG Social History Smoking and tobacco/nicotine status: current every day tobacco/nicotine user (Cannabis/ Quit cigarettes 5 years ago) Alcohol intake: never Substance/Drug Use: current Other substance/drug use details: Medical marijuana Vitals/I&O/Wt Last Vital Signs Temp 98.6 F 12/03/24 16:12 Pulse 71 12/03/24 16:12 Resp 18 12/03/24 16:12 BP 137/98 12/03/24 16:12 Pulse Ox 94 12/03/24 16:00 O2 Del Method Nasal Cannula 12/03/24 16:00 O2 Flow Rate 2 12/03/24 16:00 FiO2 50 12/03/24 12:30 12/03/24 12/03/24 12/03/24 06:59 14:59 22:59 Intake Total 76.825 / 76.825 1445.95 / 1522.775 Output Total 4000 / 4000 6393 / 3834 Balance -3923.175 / -3923.175 -3307.05 / -7230.225 Weight last 48 hrs Weight 75.3 kg Weight 74.48 kg Weight 72.575 kg Physical Exam Narrative: awake , alert , on BIPAP PEERLA S1S2 RRR perr report Lung clear perr eport Abd soft , non tender no edema Data 12/03/24 07:48 12/03/24 07:48 Micro: Microbiology 12/03/24 08:40 Blood Culture - Preliminary Blood SPECIMEN COLLECTED 12/03/24 08:16 Blood Culture - Preliminary Blood SPECIMEN COLLECTED A&P Assessment and plan 1. ESRD (end stage renal disease) on dialysis: Plan: 1. End-stage renal disease: On TTS schedule, now presented with volume overload, emergent HD today and likely will require repeat HD tomorrow 2. Acute respiratory failure: On BiPAP, due to volume overload, HD as above and ultrafiltration as tolerated 3. Anemia: Hemoglobin 9.7, will order GIANCARLO 4. Hypertensive urgency, resume home meds and review after HD done 5. Possible pneumonia, antibiotics per primary team 6. History of coronary artery disease Patient evaluated using audiovisual cart. Time spent 40 minutes. PDMP PDMP Reviewed: Not Reviewed Coding Level of Care Code Acute Code for Chg Fwd Diagnoses ESRD (end stage renal disease) on dialysis N18.6; Z99.2
--- NOTE | 2024-12-03 22:06 | PC.NURSE ---
Nitro gtt: Upon arrival to shift nitro gtt was running at 80mcg/min, MAR updated to reflect dose.
[2024-12-04] VITALS (87 sets, daily range): BP systolic 127–202; BP diastolic 69–118; PULSE 68–85; RESP 5–35; TEMP 36.8–36.9; O2SAT 89–100; BMI 21.3
[2024-12-04] MEDS: nitroglycerin drip 50 MG/250 ML PREMIX 30 MG IV (01:04)
[2024-12-04 03:47] LABS: Hematocrit 24.2 % (37-53); Hemoglobin 7.80 g/dL (11.27-16.99); Mean Corpuscular HGB Conc 32.2 g/dL (30-55); Mean Corpuscular Hemoglobin 29.8 pg (27-33); Mean Corpuscular Volume 92.4 fl (82-101); Nucleated Red Blood Cells % 0 %; Platelet Count 238 10^3/cmm (157-399); Red Blood Count 2.62 10^6/uL (3.85-5.65); White Blood Count 12.74 10^3/uL (3.29-11.43)
[2024-12-04 04:17] LABS: Alanine Aminotransferase 11 U/L (0-41); Albumin Level 3.2 g/dL (3.5-5.2); Alkaline Phosphatase 68 U/L (40-130); Anion Gap 16.6 (5-19); Aspartate Amino Transferase 12 U/L (0-40); Blood Urea Nitrogen 19 mg/dL (6-20); Calcium 8.9 mg/dL (8.5-10.5); Carbon Dioxide 25 mmol/L (22-29); Chloride 99 mmol/L (98-107); Creatinine Clr Calc Pharmacy 28.9071; Globulin 3.0 g/dL (1.3-4.6); Glucose 144 mg/dL (65-115); Osmolality Calculated 289 mOsm/kg (285-295); Potassium 3.6 mmol/L (3.5-5.1); Sodium 137 mmol/L (136-145); Total Protein 6.2 g/dL (6.6-8.7)
[2024-12-04] MEDS: nitroglycerin drip 50 MG/250 ML PREMIX 34.5 MG IV (08:33)
[2024-12-04] MEDS: piperacillin-tazobactam 3.375 GM in sodium chloride 0.9% (plus) 50 ML IV ×2 (08:41→19:09)
[2024-12-04] MEDS: pantoprazole 40 mg SDV IVP (09:30)
[2024-12-04] MEDS: venlafaxine ER (24HR) 150 mg Capsule PO (10:05)
--- NOTE | 2024-12-04 11:05 | P.PN_ITS ---
Subjective 2 Subjective: He is feeling much better this morning. Breathing much easier. Has weaned off BiPAP and nasal cannula oxygen. Denies chest pain or pressure. Vitals/I&O/Wt Last Vital Signs Temp 98.5 F 12/04/24 07:15 Pulse 82 12/04/24 09:00 Resp 14 12/04/24 09:00 BP 183/109 12/04/24 10:05 Pulse Ox 93 12/04/24 09:00 O2 Del Method Room Air 12/04/24 09:00 O2 Flow Rate 2 12/04/24 08:41 FiO2 50 12/03/24 12:30 12/03/24 12/04/24 12/04/24 22:59 06:59 14:59 Intake Total 1852.425 / 1929.250 158.750 / 2088.000 508.775 / 508.775 Output Total 4753 / 8753 Balance -2900.575 / -6823.750 158.750 / -6665.000 508.775 / 508.775 Weight last 48 hrs Weight 71.441 kg Weight 75.3 kg Weight 74.48 kg Weight 72.575 kg Physical Exam 2 Const: COMMON NORMALS: patient oriented x3 and alert GENERAL APPEARANCE: c ooperative ORIENTATION/CONSCIOUSNESS: Yes awake HENMT: COMMON NORMALS: oropharynx normal Neck/C-Spine: COMMON NORMALS: no JVD Resp: COMMON NORMALS: clear to auscultation bilaterally AUSCULTATION: clear to auscultation bilaterally Cardio: COMMON NORMALS: no JVD, regular rhythm, S1 normal heart sound present, S2 normal heart sound present and No murmurs present (Cardio) RHYTHM: regular rhythm HEART SOUNDS: S1 normal heart sound present and S2 normal heart sound present GI: COMMON NORMALS: Normal to inspection, nondistended, normoactive bowel sounds present, Soft to palpation and non-tender PALPATION: Yes Soft to palpation Extremity: COMMON NORMALS: no joint enlargement and no pedal edema Neuro: COMMON NORMALS: patient oriented x3 and moves all extremities S ENSORIUM/ORIENTATION: Yes alert Skin: COMMON NORMALS: no rashes or lesions noted GENERAL SKIN EXAM: no rashes or lesions noted Data 12/04/24 03:24 12/04/24 03:24 Micro: Microbiology 12/03/24 08:40 Blood Culture - Preliminary Blood NEGATIVE TO DATE 12/03/24 08:16 Blood Culture - Preliminary Blood NEGATIVE TO DATE A&P Assessment and plan 1. Hypertensive urgency: Blood pressures better compared to admission, however, still elevated. Resumed his usual morning home medications including amlodipine, carvedilol, hydralazine, Imdur, losartan, wean off nitro drip. If blood pressure showing improvement and able to wean off nitro drip, will be able to transfer out of intensive care unit. On presentation blood pressure as high as 220/123 this morning. With shortness of breath; contributory to acute systolic CHF decompensation and respiratory failure. - Continue nitroglycerin drip in intensive care; target systolic BP <=180 mmHg. Resume home medications. Requested to confirm. He takes clonidine PRN, but has not taken it for any consecutive stretches recently. Discussed with him risk of rebound hypertension. - Optimize blood pressure control per inpatient protocol. 2. Anemia: Hemoglobin reviewed down to 7.8 today from 9.7 yesterday platelets reviewed, normal. He has not noted any outward bleeding. Denies any hematochezia or melanotic stools. No hematemesis, no hematuria or other obvious blood loss. Without hypotension or tachycardia. Requested Hemoccult. Will check iron studies. Likely anemia of chronic disease, however, did decrease from yesterday, possible spurious lab value. Will follow-up hemoglobin requested repeat for this afternoon. - Held Eliquis for now switch to prophylactic Lovenox, reassess hemoglobin. 3. Acute hypoxemic respiratory failure: With significant improvement, weaned off BiPAP and nasal cannula oxygen. As well as hemodialysis with 4 L removed. Continue treatment of pneumonia. Phlegm improving/resolved. Sample cannot be collected. Reviewed MRSA PCR, noted detected. Continue vancomycin. Monitor for risk of cytopenia, SJS, C. difficile with antibiotics. - Respiratory therapy to assist with treatment. - Advance diet 4. Acute CHF: Status post 4 L removed during dialysis. With significant respiratory improvement. Weight is down to 71.5 kg. Possibly secondary to hypertensive urgency, versus fluid overload in setting of ESRD with known low EF. States has not missed any dialysis, dry weight is around 67 kg. On admission 75 kg. Normally 3-1/2 L removed during dialysis. He does not necessarily quantitatively limit fluid intake, but discussed with him attempts to limit. He has only minimal urine output. History of systolic CHF (EF 35 %); admission weight 8 kg above stated dry weight; fluid overload suspected contributor to dyspnea. - Fluid restrict to 1 L per day. -Complete troponin EKG series to assess for ischemia - Monitor intake and output. - Extra hemodialysis session today to remove excess fluid. 5. ESRD (end stage renal disease) on dialysis: ESRD on regular HD on kidney transplant list; possible inadequate fluid removal leading to volume overload. Reports dry weight is 67 kg. Reviewed nephrology note. Consideration of repeat HD. - Arrange extra hemodialysis session today (per nephrology). - Fluid restrict to 1 L Plan: Possible pneumonia : Reviewed CBC, noted decrease in WBC from 26 ? 10?/?L and mild right-sided infiltrate on chest X-ray raise concern for superimposed pneumonia; pulmonary versus CHF etiology uncertain. - Continue antibiotic therapy initiated, continue to better coverage with Zosyn and vancomycin for possible hospital-acquired pneumonia. - No further phlegm production to collect sputum culture. - Reviewed MRSA PCR (nasal), positive Coronary artery disease with chronic troponin elevation : Known CAD with baseline elevated troponin attributed to renal failure; monitoring needed to rule out acute ischemia. - Reviewed serial troponin panel for cardiac ischemia assessment. - Type 2 diabetes mellitus: Consistent carb diet, monitor POC glucose, sliding scale insulin - Hypertension - Coronary artery disease: plavix, carveduilol - Anemia of chronic disease - Diabetic neuropathy - Restless leg syndrome - Depression - Hx of PE: on Eliquis previously PDMP PDMP Reviewed: Not Reviewed Attestations 2 Medical Necessity Statement*: Continue admission for assessment and management of hypertensive urgency, resistant hypertension, optimization of control, with acute CHF, possible hospital-acquired pneumonia and abdomen with underlying ESRD on hemodialysis and other comorbidities. Coding Level of Care Code Critical Care >/= 30 minutes Critical care time (in minutes): 35 The high probability of a clinically significant, sudden or life threatening deterioration, as referenced in this documentation, required my full and direct attention, intervention and personal management. The critical care time shown is in addition to time spent performing any reported separately billable procedures and includes the following: [x] Data and vital sign review and interpretation [x ] Patient assessment, examination and intervention [x] Medication orders and management [x] Patient/Family updates as able [x] Care Coordination and Documentation. Diagnoses Hypertensive urgency I16.0 Anemia D64.9 Acute hypoxemic respiratory failure J96.01 Acute CHF I50.21 Heart failure type: systolic ESRD (end stage renal disease) on dialysis N18.6; Z99.2
[2024-12-04 11:55] LABS: Iron 44 ug/dL (59-158); Total Iron Binding Capacity 133 mcg/dl; Unsaturated Iron Binding 89 ug/dL (112-347)
[2024-12-04 12:07] LABS: Ferritin 1445 ng/mL (30-400)
[2024-12-04 12:13] LABS: Hemoglobin 7.80 g/dL (11.27-16.99)
--- NOTE | 2024-12-04 14:17 | P.PN_ITS ---
Subjective 2 Subjective: no new c/o on 1L nc Medications: Reviewed: Yes Vitals/I&O/Wt Last Vital Signs Temp 98.5 F 12/04/24 07:15 Pulse 84 12/04/24 12:30 Resp 21 H 12/04/24 12:30 BP 146/83 12/04/24 12:30 Pulse Ox 98 12/04/24 12:30 O2 Del Method Nasal Cannula 12/04/24 12:30 O2 Flow Rate 1 12/04/24 12:30 FiO2 50 12/03/24 12:30 12/03/24 12/04/24 12/04/24 22:59 06:59 14:59 Intake Total 1852.425 / 1929.250 158.750 / 2088.000 818.200 / 818.200 Output Total 4753 / 8753 Balance -2900.575 / -6823.750 158.750 / -6665.000 818.200 / 818.200 Weight last 48 hrs Weight 71.441 kg Weight 75.3 kg Weight 74.48 kg Weight 72.575 kg Physical Exam 2 Narrative: awake , alert , on BIPAP PEERLA S1S2 RRR perr report Lung clear perr eport Abd soft , non tender no edema Data 12/04/24 12:02 12/04/24 03:24 Micro: Microbiology 12/03/24 08:40 Blood Culture - Preliminary Blood NEGATIVE TO DATE 12/03/24 08:16 Blood Culture - Preliminary Blood NEGATIVE TO DATE A&P Assessment and plan 1. ESRD (end stage renal disease) on dialysis: Plan: 1. End-stage renal disease: On TTS schedule,HD yesterday and HD again today 2. Acute respiratory failure: s/p BiPAP, now on 1L NC 3. Anemia: Hemoglobin 7.8 , will order GIANCARLO 4. Hypertensive urgency, adjusting meds 5. Possible pneumonia, antibiotics per primary team 6. History of coronary artery disease Patient evaluated using audiovisual cart. Time spent 40 minutes. PDMP PDMP Reviewed: Not Reviewed Attestations 2 Medical Necessity Statement*: per medicine Coding Level of Care Code Acute Code for Chg Fwd Diagnoses ESRD (end stage renal disease) on dialysis N18.6; Z99.2
[2024-12-04] MEDS: heparin, porcine 1,000 unit/mL INJ 10 mL 10000 UNIT INTRACATH (14:30)
[2024-12-04] MEDS: heparin, porcine 1,000 unit/mL INJ 10 mL 1000 UNIT IV (14:30)
[2024-12-05] VITALS (80 sets, daily range): BP systolic 129–203; BP diastolic 74–116; PULSE 66–86; RESP 4–29; TEMP 37.1–37.6; O2SAT 93–100
[2024-12-05 04:14] LABS: Hematocrit 26.9 % (37-53); Hemoglobin 8.30 g/dL (11.27-16.99); Mean Corpuscular HGB Conc 30.9 g/dL (30-55); Mean Corpuscular Hemoglobin 28.6 pg (27-33); Mean Corpuscular Volume 92.8 fl (82-101); Nucleated Red Blood Cells % 0 %; Platelet Count 214 10^3/cmm (157-399); Red Blood Count 2.90 10^6/uL (3.85-5.65); White Blood Count 8.67 10^3/uL (3.29-11.43)
[2024-12-05 04:43] LABS: Alanine Aminotransferase 10 U/L (0-41); Albumin Level 3.1 g/dL (3.5-5.2); Alkaline Phosphatase 66 U/L (40-130); Anion Gap 15.2 (5-19); Aspartate Amino Transferase 9 U/L (0-40); Blood Urea Nitrogen 15 mg/dL (6-20); Calcium 8.9 mg/dL (8.5-10.5); Carbon Dioxide 25 mmol/L (22-29); Chloride 100 mmol/L (98-107); Creatinine Clr Calc Pharmacy 30.9807; Globulin 3.2 g/dL (1.3-4.6); Glucose 151 mg/dL (65-115); Osmolality Calculated 288 mOsm/kg (285-295); Potassium 3.2 mmol/L (3.5-5.1); Sodium 137 mmol/L (136-145); Total Protein 6.3 g/dL (6.6-8.7)
[2024-12-05] MEDS: venlafaxine ER (24HR) 150 mg Capsule PO (08:18)
[2024-12-05] MEDS: piperacillin-tazobactam 3.375 GM in sodium chloride 0.9% (plus) 50 ML IV ×2 (08:19→19:12)
[2024-12-05] MEDS: pantoprazole 40 mg SDV IVP (09:47)
--- NOTE | 2024-12-05 12:15 | P.PN_ITS ---
Subjective 2 Subjective: Despite his blood pressure worsening he otherwise feels all right. Denies any new symptoms. Breathing has been good. Vitals/I&O/Wt Last Vital Signs Temp 98.8 F 12/05/24 07:45 Pulse 85 12/05/24 09:30 Resp 17 12/05/24 09:30 BP 151/84 12/05/24 09:30 Pulse Ox 96 12/05/24 09:30 O2 Del Method Room Air 12/05/24 09:30 O2 Flow Rate 1 12/05/24 08:48 FiO2 50 12/03/24 12:30 12/04/24 12/05/24 12/05/24 22:59 06:59 14:59 Intake Total 799.375 / 1617.575 74.000 / 1691.575 264.050 / 264.050 Balance 799.375 / 1617.575 74.000 / 1691.575 264.050 / 264.050 Weight last 48 hrs Weight 71.6 kg Weight 71.441 kg Weight 75.3 kg Physical Exam 2 Const: COMMON NORMALS: patient oriented x3 and alert GENERAL APPEARANCE: c ooperative ORIENTATION/CONSCIOUSNESS: Yes awake HENMT: COMMON NORMALS: oropharynx normal Neck/C-Spine: COMMON NORMALS: no JVD Resp: COMMON NORMALS: clear to auscultation bilaterally AUSCULTATION: clear to auscultation bilaterally and crackles (Min crackles at bases) Cardio: COMMON NORMALS: no JVD, regular rhythm, S1 normal heart sound present, S2 normal heart sound present and No murmurs present (Cardio) RHYTHM: regular rhythm HEART SOUNDS: S1 normal heart sound present and S2 normal heart sound present GI: COMMON NORMALS: Normal to inspection, nondistended, normoactive bowel sounds present, Soft to palpation and non-tender PALPATION: Yes Soft to palpation Extremity: COMMON NORMALS: no joint enlargement and no pedal edema Neuro: COMMON NORMALS: patient oriented x3 and moves all extremities S ENSORIUM/ORIENTATION: Yes alert Skin: COMMON NORMALS: no rashes or lesions noted GENERAL SKIN EXAM: no rashes or lesions noted Data 12/05/24 03:59 12/05/24 03:59 Micro: Microbiology 12/03/24 08:40 Blood Culture - Preliminary Blood NEGATIVE TO DATE 12/03/24 08:16 Blood Culture - Preliminary Blood NEGATIVE TO DATE A&P Assessment and plan 1. Hypertensive urgency: Yesterday weaned off nitroglycerin drip, but overnight blood pressure increased again, requiring resumption of nitro drip. Has received all his home medications today. Increase amlodipine to 10 mg. Discussed with him consideration of making clonidine scheduled in case unable to wean off nitro drip with adjustment of medications. Monitor for risk of methemoglobinemia. He otherwise is on maximum doses of carvedilol, hydralazine and losartan. On presentation blood pressure as high as 220/123 this morning. With shortness of breath; contributory to acute systolic CHF decompensation and respiratory failure. - Continue nitroglycerin drip in intensive care; target systolic BP <=180 mmHg. Resume home medications. Requested to confirm. He takes clonidine PRN, but has not taken it for any consecutive stretches recently. Discussed with him risk of rebound hypertension. - Optimize blood pressure control per inpatient protocol. 2. Anemia: Reviewed hemoglobin up to 8.3. Platelets reviewed and normal. No leukocytosis. Reviewed iron studies, noted elevated ferritin without otherwise no evidence of iron deficiency. Hemoccult not yet collected. Normocytic. Check B12, folic acid. Likely anemia of chronic disease, however, did decrease from yesterday, possible spurious lab value. Monitor for further drop/evidence of bleeding. - Held Eliquis for now switch to prophylactic Lovenox, reassess hemoglobin. 3. Acute hypoxemic respiratory failure: With significant improvement, weaned off BiPAP and nasal cannula oxygen. As well as hemodialysis with 4 L removed. Continue treatment of pneumonia. Phlegm improving/resolved. Sample cannot be collected. Reviewed MRSA PCR, noted detected. Continue vancomycin. Monitor for risk of cytopenia, SJS, C. difficile with antibiotics. - Respiratory therapy to assist with treatment. - Advance diet 4. Acute CHF: Closer to euvolemia. Weight 71.6. Reports dry weight is 67. Additional dialysis yesterday. Neck session on . Possibly secondary to hypertensive urgency, versus fluid overload in setting of ESRD with known low EF. States has not missed any dialysis, dry weight is around 67 kg. On admission 75 kg. Normally 3-1/2 L removed during dialysis. He does not necessarily quantitatively limit fluid intake, but discussed with him attempts to limit. He has only minimal urine output. History of systolic CHF (EF 35 %); admission weight 8 kg above stated dry weight; fluid overload suspected contributor to dyspnea. - Fluid restrict to 1 L per day. -Complete troponin EKG series to assess for ischemia - Monitor intake and output. - Extra hemodialysis session today to remove excess fluid. 5. ESRD (end stage renal disease) on dialysis: ESRD on regular HD on kidney transplant list; possible inadequate fluid removal leading to volume overload. Reports dry weight is 67 kg. Reviewed nephrology note. Consideration of repeat HD. - Arrange extra hemodialysis session today (per nephrology). - Fluid restrict to 1 L Plan: Possible pneumonia : Leukocytosis resolved. Continue treatment of possible pneumonia. - Continue antibiotic therapy initiated, continue to better coverage with Zosyn and vancomycin for possible hospital-acquired pneumonia. - No further phlegm production to collect sputum culture. - Reviewed MRSA PCR (nasal), positive Coronary artery disease with chronic troponin elevation : Known CAD with prior coronary stenting with baseline elevated troponin attributed to renal failure. Remains free of chest pain. - Reviewed serial troponin panel for cardiac ischemia assessment. - Type 2 diabetes mellitus: Consistent carb diet, monitor POC glucose, sliding scale insulin - Hypertension - Coronary artery disease: plavix, carveduilol - Anemia of chronic disease - Diabetic neuropathy - Restless leg syndrome - Depression - Hx of PE: on Eliquis previously PDMP PDMP Reviewed: Not Reviewed Attestations 2 Medical Necessity Statement*: Continue admission for optimization of resistant hypertension with hypertensive urgency, weaning off intravenous antihypertensive and gentleman with continue treatment of pneumonia, CHF with underlying ESRD on dialysis. Coding Level of Care Code Critical Care >/= 30 minutes Critical care time (in minutes): 35 The high probability of a clinically significant, sudden or life threatening deterioration, as referenced in this documentation, required my full and direct attention, intervention and personal management. The critical care time shown is in addition to time spent performing any reported separately billable procedures and includes the following: [x] Data and vital sign review and interpretation [x ] Patient assessment, examination and intervention [x] Medication orders and management [x] Patient/Family updates as able [x] Care Coordination and Documentation. Diagnoses Hypertensive urgency I16.0 Anemia D64.9 Anemia type: due to chronic kidney disease Acute hypoxemic respiratory failure J96.01 Acute CHF I50.21 Heart failure type: systolic ESRD (end stage renal disease) on dialysis N18.6; Z99.2
[2024-12-05 13:22] LABS: Vitamin B12 343 pg/mL (232-1245)
--- NOTE | 2024-12-05 14:21 | P.PN_ITS ---
Subjective 2 Subjective: no new c/o Medications: Reviewed: Yes Vitals/I&O/Wt Last Vital Signs Temp 98.8 F 12/05/24 07:45 Pulse 79 12/05/24 13:50 Resp 15 12/05/24 12:30 BP 149/88 12/05/24 12:30 Pulse Ox 99 12/05/24 12:30 O2 Del Method Room Air 12/05/24 12:30 O2 Flow Rate 1 12/05/24 08:48 FiO2 50 12/03/24 12:30 12/04/24 12/05/24 12/05/24 22:59 06:59 14:59 Intake Total 799.375 / 1617.575 74.000 / 1691.575 504.050 / 504.050 Balance 799.375 / 1617.575 74.000 / 1691.575 504.050 / 504.050 Weight last 48 hrs Weight 71.6 kg Weight 71.441 kg Weight 75.3 kg Physical Exam 2 Narrative: awake , alert , on BIPAP PEERLA S1S2 RRR perr report Lung clear perr eport Abd soft , non tender no edema Data 12/05/24 03:59 12/05/24 03:59 A&P Assessment and plan 1. ESRD (end stage renal disease) on dialysis: Plan: 1. End-stage renal disease: On TTS schedule,HD tomorrow 2. Acute respiratory failure: s/p BiPAP, now on 1L NC 3. Anemia: Hemoglobin 7.8 , will order GIANCARLO 4. Hypertensive urgency, adjusting meds 5. Possible pneumonia, antibiotics per primary team 6. History of coronary artery disease Patient evaluated using audiovisual cart. Time spent 40 minutes. PDMP PDMP Reviewed: Not Reviewed Attestations 2 Medical Necessity Statement*: per medicine Coding Level of Care Code Acute Code for Chg Fwd Diagnoses ESRD (end stage renal disease) on dialysis N18.6; Z99.2
--- NOTE | 2024-12-05 15:19 | PC.SOCIAL ---
IMM UPDATED IMM dated and initialed copy given to patient and copy placed in chart.
[2024-12-06] VITALS (51 sets, daily range): BP systolic 102–197; BP diastolic 66–114; PULSE 66–90; RESP 2–30; TEMP 36.6–36.9; O2SAT 92–100
[2024-12-06 04:12] LABS: Hematocrit 27.8 % (37-53); Hemoglobin 8.70 g/dL (11.27-16.99); Mean Corpuscular HGB Conc 31.3 g/dL (30-55); Mean Corpuscular Hemoglobin 29.4 pg (27-33); Mean Corpuscular Volume 93.9 fl (82-101); Nucleated Red Blood Cells % 0 %; Platelet Count 241 10^3/cmm (157-399); Red Blood Count 2.96 10^6/uL (3.85-5.65); White Blood Count 9.62 10^3/uL (3.29-11.43)
[2024-12-06] MEDS: nitroglycerin drip 50 MG/250 ML PREMIX 12 MG IV (04:19)
[2024-12-06 04:42] LABS: Alanine Aminotransferase 8 U/L (0-41); Albumin Level 3.3 g/dL (3.5-5.2); Alkaline Phosphatase 70 U/L (40-130); Anion Gap 22.0 (5-19); Aspartate Amino Transferase 8 U/L (0-40); Blood Urea Nitrogen 29 mg/dL (6-20); Calcium 9.0 mg/dL (8.5-10.5); Carbon Dioxide 22 mmol/L (22-29); Chloride 99 mmol/L (98-107); Creatinine Clr Calc Pharmacy 19.4553; Globulin 2.5 g/dL (1.3-4.6); Glucose 113 mg/dL (65-115); Osmolality Calculated 295 mOsm/kg (285-295); Potassium 4.0 mmol/L (3.5-5.1); Sodium 139 mmol/L (136-145); Total Protein 5.8 g/dL (6.6-8.7)
[2024-12-06] MEDS: heparin, porcine 1,000 unit/mL INJ 10 mL 1000 UNIT IV (07:20)
[2024-12-06] MEDS: piperacillin-tazobactam 3.375 GM in sodium chloride 0.9% (plus) 50 ML IV (09:01)
[2024-12-06] MEDS: venlafaxine ER (24HR) 150 mg Capsule PO (09:02)
[2024-12-06] MEDS: pantoprazole 40 mg SDV IVP (09:07)
--- NOTE | 2024-12-06 13:00 | PC.NURSE ---
Nitro gtt stopped. SBP consistently less than 160. Dr Arnold notified.
--- NOTE | 2024-12-06 13:05 | P.PN_ITS ---
Subjective 2 Subjective: getting hD Medications: Reviewed: Yes Vitals/I&O/Wt Last Vital Signs Temp 98.1 F 12/06/24 10:52 Pulse 79 12/06/24 12:30 Resp 17 12/06/24 12:30 BP 140/83 12/06/24 12:30 Pulse Ox 97 12/06/24 12:30 O2 Del Method Room Air 12/06/24 12:30 O2 Flow Rate 1 12/06/24 07:30 FiO2 50 12/03/24 12:30 12/05/24 12/06/24 12/06/24 22:59 06:59 14:59 Intake Total 170 / 674.050 94.125 / 768.175 576.325 / 576.325 Output Total 0 / 0 3300 / 3300 Balance 170 / 674.050 94.125 / 768.175 -2723.675 / -2723.675 Weight last 48 hrs Weight 70.6 kg Weight 71.6 kg Physical Exam 2 Narrative: awake , alert , PEERLA S1S2 RRR perr report Lung clear perr eport Abd soft , non tender no edema Data 12/06/24 03:54 12/06/24 03:54 Micro: Microbiology 12/06/24 00:05 Occult Blood (FIT) - Final Stool - Stool Aspirate A&P Assessment and plan 1. ESRD (end stage renal disease) on dialysis: Plan: 1. End-stage renal disease: On TTS schedule,HD today 2. Acute respiratory failure: s/p BiPAP, now on 1L NC 3. Anemia: Hemoglobin 7.8 , will order GIANCARLO 4. Hypertensive urgency, adjusting meds , BP improved post HD 5. Possible pneumonia, antibiotics per primary team 6. History of coronary artery disease Patient evaluated using audiovisual cart. Time spent 40 minutes. PDMP PDMP Reviewed: Not Reviewed Attestations 2 Medical Necessity Statement*: per medicine Coding Level of Care Code Acute Code for Chg Fwd Diagnoses ESRD (end stage renal disease) on dialysis N18.6; Z99.2
--- NOTE | 2024-12-06 14:57 | P.PN_ITS ---
Subjective 2 Subjective: Undergoing dialysis. No issues so far. Vitals/I&O/Wt Last Vital Signs Temp 97.8 F 12/06/24 13:30 Pulse 73 12/06/24 14:00 Resp 15 12/06/24 13:30 BP 102/66 12/06/24 14:00 Pulse Ox 100 12/06/24 14:00 O2 Del Method Room Air 12/06/24 14:00 O2 Flow Rate 1 12/06/24 07:30 FiO2 50 12/03/24 12:30 12/05/24 12/06/24 12/06/24 22:59 06:59 14:59 Intake Total 170 / 674.050 94.125 / 768.175 828.825 / 828.825 Output Total 0 / 0 3300 / 3300 Balance 170 / 674.050 94.125 / 768.175 -2471.175 / -2471.175 Weight last 48 hrs Weight 70.6 kg Weight 71.6 kg Physical Exam 2 Const: COMMON NORMALS: patient oriented x3 and alert GENERAL APPEARANCE: c ooperative ORIENTATION/CONSCIOUSNESS: Yes awake HENMT: COMMON NORMALS: oropharynx normal Neck/C-Spine: COMMON NORMALS: no JVD Resp: COMMON NORMALS: clear to auscultation bilaterally AUSCULTATION: clear to auscultation bilaterally and crackles (Min crackles at bases) Cardio: COMMON NORMALS: no JVD, regular rhythm, S1 normal heart sound present, S2 normal heart sound present and No murmurs present (Cardio) RHYTHM: regular rhythm HEART SOUNDS: S1 normal heart sound present and S2 normal heart sound present GI: COMMON NORMALS: Normal to inspection, nondistended, normoactive bowel sounds present, Soft to palpation and non-tender PALPATION: Yes Soft to palpation Extremity: COMMON NORMALS: no joint enlargement and no pedal edema Neuro: COMMON NORMALS: patient oriented x3 and moves all extremities S ENSORIUM/ORIENTATION: Yes alert Skin: COMMON NORMALS: no rashes or lesions noted GENERAL SKIN EXAM: no rashes or lesions noted Data 12/06/24 03:54 12/06/24 03:54 Micro: Microbiology 12/06/24 00:05 Occult Blood (FIT) - Final Stool - Stool Aspirate A&P Assessment and plan 1. Hypertensive urgency: Transiently weaned off nitroglycerin drip yesterday, but had to be restarted again. Requested scheduled clonidine, increase Imdur dose to 60 mg. Discussed with him. Undergoing dialysis today. In the afternoon he is weaned off nitroglycerin drip. Blood pressure 102/66. Continue to monitor. Monitor for risk of hypotension. Weight appears closer to euvolemia today 70.6 kg. In case successfully weaned off nitroglycerin drip maintaining blood pressure, no hypotension, may be able to discharge home. Discussed with nurse, casework manager. Continue increased dose amlodipine at 10 mg. Discussed with him consideration of making clonidine scheduled in case unable to wean off nitro drip with adjustment of medications. Monitor for risk of methemoglobinemia. He otherwise is on maximum doses of carvedilol, hydralazine and losartan. On presentation blood pressure as high as 220/123. With shortness of breath; contributory to acute systolic CHF decompensation and respiratory failure. - Continue nitroglycerin drip in intensive care; target systolic BP <=180 mmHg. Resume home medications. Requested to confirm. He takes clonidine PRN, but has not taken it for any consecutive stretches recently. Discussed with him risk of rebound hypertension. - Optimize blood pressure control per inpatient protocol. 2. Anemia: Reviewed hemoglobin up to 8.3. Platelets reviewed and normal. No leukocytosis. Reviewed iron studies, noted elevated ferritin, no evidence of iron deficiency. Hemoccult not yet collected. Normocytic. Reviewed B12, folic acid. Normal. Likely anemia of chronic disease, however, did decrease from yesterday, possible spurious lab value. Monitor for further drop/evidence of bleeding. - Held Eliquis for now switch to prophylactic Lovenox, reassess hemoglobin. 3. Acute hypoxemic respiratory failure: With significant improvement, weaned off BiPAP and nasal cannula oxygen. As well as hemodialysis with 4 L removed. Continue treatment of pneumonia. Phlegm improving/resolved. Sample cannot be collected. Reviewed MRSA PCR, noted detected. Continue vancomycin. Monitor for risk of cytopenia, SJS, C. difficile with antibiotics. - Respiratory therapy to assist with treatment. - Advance diet 4. Acute CHF: Closer to euvolemia weight today at 70.6 kg. Weight 71.6. Reports dry weight is 67. Reviewed nephro note. HD today. Possibly secondary to hypertensive urgency, versus fluid overload in setting of ESRD with known low EF. States has not missed any dialysis, dry weight is around 67 kg. On admission 75 kg. Normally 3-1/2 L removed during dialysis. He does not necessarily quantitatively limit fluid intake, but discussed with him attempts to limit. He has only minimal urine output. History of systolic CHF (EF 35 %); admission weight 8 kg above stated dry weight; fluid overload suspected contributor to dyspnea. - Fluid restrict to 1 L per day. - Monitor intake and output. Resume dialysis after discharge. Discussed with casework manager. 5. ESRD (end stage renal disease) on dialysis: ESRD on regular HD on kidney transplant list; possible inadequate fluid removal leading to volume overload. Reports dry weight is 67 kg. Reviewed nephrology note. HD today. - Arrange extra hemodialysis session today (per nephrology). - Fluid restrict to 1 L Plan: Possible pneumonia : Leukocytosis resolved. Continue treatment of possible pneumonia. - Continue antibiotic therapy initiated, continue to better coverage with Zosyn and vancomycin for possible hospital-acquired pneumonia. - No further phlegm production to collect sputum culture. - Reviewed MRSA PCR (nasal), positive Coronary artery disease with chronic troponin elevation : Known CAD with prior coronary stenting with baseline elevated troponin attributed to renal failure. Remains free of chest pain. - Reviewed serial troponin panel for cardiac ischemia assessment. - Type 2 diabetes mellitus: Consistent carb diet, monitor POC glucose, sliding scale insulin - Hypertension - Coronary artery disease: plavix, carveduilol - Anemia of chronic disease - Diabetic neuropathy - Restless leg syndrome - Depression - Hx of PE: on Eliquis previously PDMP PDMP Reviewed: Not Reviewed Attestations 2 Medical Necessity Statement*: Continue admission for optimization of control of resistant hypertension after hypertensive urgency, recurrent requirement for intravenous antihypertensive and gentleman with underlying ESRD, continued volume optimization for CHF, treatment of pneumonia. and High MDM includes amount and/or complexity of data reviewed/ordered [ resulted lab(s)/test(s), ordered lab(s)/test(s) and other healthcare professional discussion] and described risk of complication, morbidity or mortality of management as documented Diagnoses Hypertensive urgency I16.0 Anemia D64.9 Anemia type: due to chronic kidney disease Acute hypoxemic respiratory failure J96.01 Acute CHF I50.21 Heart failure type: systolic ESRD (end stage renal disease) on dialysis N18.6; Z99.2
--- NOTE | 2024-12-06 18:14 | PM.DCS ---
Discharge Providers Date of Admission: 12/03/24 08:17 Date of Discharge: December 06, 2024 Attending Provider at Admission: Chris Arnold Attending Provider at Discharge: Chris Arnold Primary Care Provider: Yaniv Moe MD Diagnoses at Discharge Discharge Diagnosis 1. Hypertensive urgency: 2. Anemia: 3. Acute hypoxemic respiratory failure: 4. Acute CHF: 5. ESRD (end stage renal disease) on dialysis: Reason for Visit Reason for Visit: SOB - weakness Brief History: Jose Guadalupe Claudio is a 44 year old gentleman with end-stage renal disease (ESRD) on thrice-weekly hemodialysis (patient clarifies Tuesday/Tuesday/Tuesday) who presents after the sudden onset of dyspnea and generalized weakness earlier today. Emergency medical services documented oxygen saturations in the 60 % range; supplementation with a non-rebreather mask, then bilevel positive airway pressure (BiPAP), improved saturation only into the low 70 % during transport. In the emergency department (ED) he remained on BiPAP and was started on an intravenous nitroglycerin infusion after blood pressure measured 202/112 mmHg. Past admissions for decompensated congestive heart failure (CHF) were noted earlier this month. He denies fever, chills, sore throat, cough, or sputum production, though white blood cell (WBC) count is markedly elevated at 26 ? 10?/?L. Chest X-ray shows mild [id number] infiltrate versus chronic changes. He reports full adherence to medications and dialysis, typically removing 3.5 kg per session. Home blood pressures usually run ~140/90 mmHg; clonidine is taken only PRN and infrequently in the past two weeks. Reported ?dry? weight is 67 kg, but admission weight is 75 kg. Urine output is minimal. He drinks approximately one beer daily and denies current tobacco use. No known allergies. Hospital Course Hospital Course He was admitted to intensive care unit with treatment of hypertensive urgency with nitroglycerin drip, underwent additional dialysis, maintained on 1 L fluid restriction daily, pneumonia treated with Zosyn and vancomycin, continued on BiPAP support, weaned off BiPAP and transitioned briefly to nasal cannula, then to room air. Respiratory status improved significantly. Leukocytosis resolved. Breathing remained good on room air. With anemia iron studies were obtained, without iron deficiency, normocytic anemia, B12 and folic acid were normal. Hemoccult is found positive. Hemoglobin remained steady without need for transfusion. He is continued on PPI. Please reassess and refer for endoscopic evaluation. Blood pressures remained a challenge, with resistant hypertension requiring returning to IV antihypertensives on several occasions despite resuming and escalating home regimen of multiple antihypertensive several which are at max doses including carvedilol, hydralazine, losartan, and also on amlodipine and Imdur. Amlodipine dose was increased, clonidine was added scheduled at 0.1 mg twice daily and Imdur dose is increased to 60 mg daily. He was able to wean off nitroglycerin drip today and has maintained blood pressures through the day, wanting to return home today with outpatient follow-up. Please reassess blood pressures and continue to optimize. Consider further assessment for additional secondary causes of hypertension, including assessment for renal artery stenosis. Physical Exam Const: COMMON NORMALS: patient oriented x3 and alert GENERAL APPEARANCE: cooperative ORIENTATION/CONSCIOUSNESS: Yes awake HENMT: COMMON NORMALS: oropharynx normal Neck/C-Spine: COMMON NORMALS: no JVD Resp: COMMON NORMALS: clear to auscultation bilaterally AUSCULTATION: clear to auscultation bilaterally and crackles (Min crackles at bases) Cardio: COMMON NORMALS: no JVD, regular rhythm, S1 normal heart sound present, S2 normal heart sound present and No murmurs present (Cardio) RHYTHM: regular rhythm HEART SOUNDS: S1 normal heart sound present and S2 normal heart sound present GI: COMMON NORMALS: Normal to inspection, nondistended, normoactive bowel sounds present, Soft to palpation and non-tender PALPATION: Yes Soft to palpation Extremity: COMMON NORMALS: no joint enlargement and no pedal edema Neuro: COMMON NORMALS: patient oriented x3 and moves all extremities SENSORIUM/ORIENTATION: Yes alert Skin: COMMON NORMALS: no rashes or lesions noted GENERAL SKIN EXAM: no rashes or lesions noted Discharge Data Studies Completed and Pending Completed Studies During Hospitalization Category Date Time Status CT angio chest PE protcl [id number] Stat Cat Scan 12/03/24 07:56 Completed XR chest 1V portable [id number] Stat Exams 12/03/24 07:31 Completed Pending at discharge Category Date Time Status Basic Metabolic Panel AM LABS Lab 12/07/24 04:00 Ordered Blood Culture Stat Lab 12/03/24 08:40 Results CBC Auto Diff [Complete Blood Count w/Auto] AM LABS Lab 12/07/24 04:00 Ordered Sputum Culture and Gram Stain Routine Lab 12/03/24 10:02 Uncollected Vancomycin Random AM LABS Lab 12/07/24 04:00 Ordered Radiology Impressions Chest X-Ray 12/03/24 07:31 IMPRESSION: 1. Mild residual infiltrate in the mid RIGHT lung. Remaining lung amado are clear. 2. Pulmonary hyperinflation, chronic interstitial changes. Chest CTA 12/03/24 07:56 IMPRESSION: 1. No evidence of pulmonary embolus. 2. Trace pleural fluid. Compressive atelectasis in the lung bases LEFT greater than RIGHT. A few patchy opacities in the LEFT lower lobe similar to previous. Few patchy opacities in the lingula. Recommend correlation for pneumonia. 3. No other acute findings. Laboratory Results WBC 9.62 10^3/uL (3.29-11.43) 12/06/24 03:54 RBC 2.96 10^6/uL (3.85-5.65) L 12/06/24 03:54 Hgb 8.70 g/dL (11.27-16.99) L 12/06/24 03:54 Hct 27.8 % (37-53) L 12/06/24 03:54 MCV 93.9 fl (82-101) 12/06/24 03:54 MCH 29.4 pg (27-33) 12/06/24 03:54 MCHC 31.3 g/dL (30-55) 12/06/24 03:54 RDW 19.4 % (12.1-15.1) H 12/06/24 03:54 Plt Count 241 10^3/cmm (157-399) 12/06/24 03:54 MPV 9.0 fL (7.4-10.4) 12/06/24 03:54 Neut % (Auto) 71.5 % 12/06/24 03:54 Lymph % (Auto) 13.7 % 12/06/24 03:54 Mercer % (Auto) 8.7 % 12/06/24 03:54 Eos % (Auto) 4.7 % 12/06/24 03:54 Baso % (Auto) 0.8 % 12/06/24 03:54 Neut # (Auto) 6.87 10^3/uL (1.8-7.7) 12/06/24 03:54 Lymph # (Auto) 1.3 10^3/uL (0.8-4.8) 12/06/24 03:54 Mercer # (Auto) 0.8 10^3/uL (0.2-0.9) 12/06/24 03:54 Eos # (Auto) 0.5 10^3/uL (0.0-0.8) 12/06/24 03:54 Baso # (Auto) 0.1 10^3/uL (0.0-0.1) 12/06/24 03:54 Nucleated RBC % (auto) 0 % 12/06/24 03:54 Nucleated RBCs # 0.0 /100WBC 12/06/24 03:54 Specimen Type Arterial 12/03/24 08:38 Sample Site Radial, left 12/03/24 08:38 ABG pH 7.51 (7.35-7.45) H 12/03/24 08:38 ABG pCO2 35.1 mmHg (35-45) 12/03/24 08:38 ABG pO2 197.0 mmHg (80.0-100.0) H 12/03/24 08:38 ABG PO2/FiO2 Ratio 197 12/03/24 08:38 ABG HCO3 27.8 mmol/L (22-26) H 12/03/24 08:38 ABG O2 Saturation > 99.1 12/03/24 08:38 ABG Base Excess 4.5 mmol/L (-2.0-2.0) H 12/03/24 08:38 Otoniel Test Pos 12/03/24 08:38 A-a O2 Gradient 61.3 mmHg (5-10) H 12/03/24 08:38 Hematocrit 26.9 % (42-52) L 12/03/24 08:38 Hgb O2 Saturation 97.9 % (95-100) 12/03/24 08:38 Carboxyhemoglobin 1.3 %THgb (0.4-20.1) 12/03/24 08:38 Methemoglobin 0.7 % (0.4-1.5) 12/03/24 08:38 Total Hemoglobin 8.8 g/dL (14-18) L 12/03/24 08:38 Sodium 136.0 mmol/L (131-143) 12/03/24 08:38 Potassium 4.1 mmol/L (3.5-5.0) 12/03/24 08:38 Glucose 361.0 mg/dL (70-115) H 12/03/24 08:38 Ionized Calcium 1.1 mmol/L (1.1-1.4) 12/03/24 08:38 O2 Delivery Device Bipap 12/03/24 08:38 FiO2 100.0 % 12/03/24 08:38 Wearing Apparel Presser ID Monro 12/03/24 08:38 Sodium 139 mmol/L (136-145) 12/06/24 03:54 Potassium 4.0 mmol/L (3.5-5.1) 12/06/24 03:54 Chloride 99 mmol/L (98-107) 12/06/24 03:54 Carbon Dioxide 22 mmol/L (22-29) 12/06/24 03:54 Anion Gap 22.0 (5-19) H 12/06/24 03:54 BUN 29 mg/dL (6-20) H 12/06/24 03:54 Creatinine 5.1 mg/dL (0.7-1.2) H 12/06/24 03:54 GFR Calculation 12.3 mL/min (90-130) L 12/06/24 03:54 Glucose 113 mg/dL (65-115) 12/06/24 03:54 POC Glucose 149 mg/dL (70-110) H 12/06/24 17:47 Calculated Osmolality 295 mOsm/kg (285-295) 12/06/24 03:54 Lactic Acid 1.3 mmol/L (0.5-2.2) 12/03/24 07:48 Calcium 9.0 mg/dL (8.5-10.5) 12/06/24 03:54 Iron 44 ug/dL (59-158) L 12/04/24 03:24 TIBC 133 mcg/dl 12/04/24 03:24 % Saturation 33.0 % (20-50) 12/04/24 03:24 Unsat Iron Binding 89 ug/dL (112-347) L 12/04/24 03:24 Ferritin 1445 ng/mL (30-400) H 12/04/24 03:24 Total Bilirubin 0.5 mg/dL (0.15-1.2) 12/06/24 03:54 AST 8 U/L (0-40) 12/06/24 03:54 ALT 8 U/L (0-41) 12/06/24 03:54 Alkaline Phosphatase 70 U/L (40-130) 12/06/24 03:54 Troponin T Baseline 319 ng/L (0-15) H* 12/03/24 07:48 Troponin T 120 Minute 318.8 ng/L (0-15) H 12/03/24 08:40 Delta Troponin T -0.2 ABS# (0-10) L 12/03/24 08:40 Troponin T Hi Sens 6Hr 368.4 ng/L (0-15) H 12/03/24 13:16 Troponin T Hi Sens 6Hr Delta 49.4 ng/L (0-12) H* 12/03/24 13:16 Total Protein 5.8 g/dL (6.6-8.7) L 12/06/24 03:54 Albumin 3.3 g/dL (3.5-5.2) L 12/06/24 03:54 Globulin 2.5 g/dL (1.3-4.6) 12/06/24 03:54 Vitamin B12 343 pg/mL (232-1245) 12/05/24 03:59 Folate 15.0 ng/mL (4.5-32.2) 12/05/24 13:09 Urine Color Yellow (Yellow) 12/03/24 15:00 Urine Appearance Clear (CLEAR) 12/03/24 15:00 Urine pH >=9.0 (5-7) A 12/03/24 15:00 Ur Specific Ashkum 1.014 (1.005-1.030) 12/03/24 15:00 Urine Protein 3+ (Negative) A 12/03/24 15:00 Urine Glucose (UA) 1+ (Normal) H 12/03/24 15:00 Urine Ketones Negative (Negative) 12/03/24 15:00 Urine Blood Negative (Negative) 12/03/24 15:00 Urine Nitrate Negative (Negative) 12/03/24 15:00 Urine Bilirubin Negative (Negative) 12/03/24 15:00 Urine Urobilinogen 0.2 mg/dL (Negative) 12/03/24 15:00 Ur Leukocyte Esterase Negative (Negative) 12/03/24 15:00 Urine RBC 0-2 /hpf (0-2) 12/03/24 15:00 Urine WBC 0-5 /hpf (0-5) 12/03/24 15:00 Ur Squamous Epith Cells 0-5 /hpf (0-5) 12/03/24 15:00 Amorphous Sediment Not Reportable 12/03/24 15:00 Urine Bacteria None seen /hpf (NONE) 12/03/24 15:00 Hyaline Casts 0.81 /lpf 12/03/24 15:00 Nasal MRSA (PCR) Mrsa detected (Negative) A 12/03/24 10:15 Random Vancomycin 29.6 ug/mL (20.0-40.0) 12/06/24 03:54 Serum Ketones Negative (Negative) 12/03/24 07:48 Vitals Last Vital Signs Temp 97.8 F 12/06/24 17:30 Pulse 76 12/06/24 18:00 Resp 19 H 12/06/24 18:00 BP 153/99 12/06/24 18:07 Pulse Ox 97 12/06/24 18:00 O2 Del Method Room Air 12/06/24 18:00 O2 Flow Rate 1 12/06/24 07:30 FiO2 50 12/03/24 12:30 Discharge Plan Discharge Patient Disposition: Home Condition: Stable Prescriptions: New cefdinir 300 mg capsule 300 mg PO BID 5 Days Qty: 10 0RF doxycycline hyclate 100 mg capsule 100 mg PO BID 5 Days Qty: 10 0RF clonidine HCl 0.1 mg Tablet 0.1 mg PO BID Qty: 60 0RF Continued buspirone 5 mg tablet 5 mg PO TID loperamide 2 mg capsule See Rx Instructions .ROUTE .COMPLEX Rx Instructions: TAKE 1 CAPSULE BY MOUTH IN THE MORNING AND 3 IN THE EVENING venlafaxine 150 mg capsule,extended release 24hr 150 mg PO DAILY hydralazine 100 mg tablet 100 mg PO TID pantoprazole 40 mg tablet,delayed release (DR/EC) 40 mg PO DAILY ropinirole 0.5 mg tablet 0.5 mg PO QPM mirtazapine 15 mg tablet 7.5 mg PO QPM sevelamer carbonate 800 mg tablet See Rx Instructions .ROUTE .COMPLEX Rx Instructions: TAKE 2 TABLETS BY MOUTH WITH THE LARGEST MEAL OF THE DAY AND 1 TABLET WITH OTHER MEALS (4 TABLETS TOTAL PER DAY) sodium bicarbonate 325 mg tablet 325 mg PO DAILY PRN (Reason: Stomach ACID) clopidogrel 75 mg Tablet 75 mg PO DAILY 30 Days Qty: 30 2RF RenaPlex-D 800 mcg-12.5 mg -2,000 unit tablet See Rx Instructions .ROUTE .COMPLEX Rx Instructions: TAKE 1 TABLET BY MOUTH EVERY DAY (ON DIALYSIS DAYS, TAKE AFTER DIALYSIS TREATMENT) Eliquis 5 mg Tablet 5 mg PO BID@0900,2100 Qty: 60 0RF losartan 50 mg tablet 100 mg PO DAILY megestrol 400 mg/10 mL (40 mg/mL) suspension 400 mg PO DAILY insulin lispro 100 unit/mL insulin pen 15 unit SUBCUT TID carvedilol 25 mg tablet 50 mg PO BID 30 Days Qty: 120 0RF gabapentin 300 mg capsule 300 mg PO BEDTIME Changed amlodipine 5 mg tablet 10 mg PO DAILY Qty: 90 0RF isosorbide mononitrate 30 mg tablet extended release 24 hr 60 mg PO DAILY Qty: 90 0RF Discontinued clonidine HCl 0.3 mg tablet 0.3 mg PO TID PRN (Reason: bp) Discharge Order = DC NOW: Discharge Order (Routine); Ordered 12/06/24 Ordered By: Chris Arnold Referrals: [facility] [Outside] Yaniv Moe MD [Primary Care Provider, Family Practice] - 4-7 days Patient Instructions: Opioid Safety, Patient Portal & Galindo Instructions Activity Restrictions/Additional Instructions: Follow-up with your primary provider and with nephrology for reassessment after acute CHF, as well as hypertensive urgency with resistant/difficult to treat hypertension with medication adjustments. Continue to monitor blood pressures at home, continue target blood pressures below 130/90. Avoid hypotension, if blood pressures are decreasing to below 100 systolic or less than 60 diastolic, please go back to your previous medication doses. Your Imdur dose is increased to 60 mg daily and clonidine is started scheduled at 0.1 mg twice daily. In case of difficulty controlling blood pressure or persistent blood pressure above 180/110 despite taking her medications, seek medical attention. Restrict fluid intake to 1 L/day. Continue dialysis. Continue to track weights. Continue renal/dialysis, diabetic diet. Complete antibiotics for pneumonia and follow-up with your primary doctor for reassessment. Have your primary doctor reassess anemia with noted decrease in hemoglobin down at 8.7 without iron deficiency with anemia of chronic disease. In case you notice any bleeding, including blood in stool dark black stool, or any other symptoms, seek medical attention. Please note that small amount of occult blood were found in the stool, continue pantoprazole. Please follow-up with your primary doctor for reassessment of anemia with positive Hemoccult, arrangements for endoscopic evaluation if not done recently. Seek medical attention in case of any worsening or new concerning symptoms. Discharge Attestations Time Spent in Discharge Care*: greater than 30 min Status at Discharge: Cognitive status at discharge: cognitively intact, Behavioral status at discharge: cooperative, Quality Metrics Clinical Quality Measures [ No reported AMI, CVA or VTE this stay] Coding Level of Care Code 20942 Total time (in minutes) for Discharge: 45 Diagnoses Hypertensive urgency I16.0 Anemia D64.9 Anemia type: due to chronic kidney disease Acute hypoxemic respiratory failure J96.01 Acute CHF I50.21 Heart failure type: systolic ESRD (end stage renal disease) on dialysis N18.6; Z99.2
--- NOTE | 2024-12-06 20:02 | PC.NURSE ---
Discharge Education Discharge information and education provided to patient and family. Patient as well as verbalized understanding and stated they understand everything No further questions verbalized. Patient off unit at 1934 via wheelchair. All patient belongings with patient at time of discharge.
== END 2024-12-06 19:34 | disposition home or self-care (01) | DRG 193 ==
LOC: ER 08:09 → ICU 08:17
PROVIDERS: Admitting Provider Internal Medicine; Emergency Provider Family Medicine; PCP Family Medicine; Visit Provider Internal Medicine
DX: J18.9 Pneumonia, unspecified organism (principal); I50.21 Acute systolic (congestive) heart failure; J96.01 Acute respiratory failure with hypoxia; N18.6 End stage renal disease; I13.2 Hypertensive heart and chronic kidney disease with heart failure and with stage 5 chronic kidney disease, or end stage renal disease; I16.0 Hypertensive urgency; Z99.2 Dependence on renal dialysis; Z87.891 Personal history of nicotine dependence; D63.8 Anemia in other chronic diseases classified elsewhere; I25.10 Atherosclerotic heart disease of native coronary artery without angina pectoris; E11.40 Type 2 diabetes mellitus with diabetic neuropathy, unspecified; G25.81 Restless legs syndrome; F32.A Depression, unspecified; Z86.711 Personal history of pulmonary embolism; Z79.01 Long term (current) use of anticoagulants; Z79.02 Long term (current) use of antithrombotics/antiplatelets
CPT/HCPCS: 36415; 36416; 36600; 71045; 71275; 80051; 80053; 80202; 81001; 82009; 82274; 82330; 82607; 82728; 82746; 82805; 82962; 83540; 83550; 83605; 84484; 85018; 85025; 87040; 90935; 93005; 94660; 94664; 96365; 96366; 96372; 96375; 99291; J0360; J1644; J1650; J1815; J2470; J2543; J3372; J3373; J3490; J7050; J9999; Q3014; Q5105

== ENCOUNTER → 2024-12-27 12:43 | Outpatient (BNVA) | payer MEDICARE, SELFPAY | PROVIDERS: PCP Family Medicine; Visit Provider Internal Medicine | DX: I13.2 Hypertensive heart and chronic kidney disease with heart failure and with stage 5 chronic kidney disease, or end stage renal disease (principal); E11.22 Type 2 diabetes mellitus with diabetic chronic kidney disease; N18.6 End stage renal disease; I50.23 Acute on chronic systolic (congestive) heart failure; Z99.2 Dependence on renal dialysis; I25.10 Atherosclerotic heart disease of native coronary artery without angina pectoris; I42.0 Dilated cardiomyopathy; I25.5 Ischemic cardiomyopathy; Z95.1 Presence of aortocoronary bypass graft; Z79.01 Long term (current) use of anticoagulants; Z79.4 Long term (current) use of insulin | CPT/HCPCS: 99214 ==

== ENCOUNTER 2025-02-06 09:00 | Inpatient (IN) | payer MEDICARE, SELFPAY ==
[2025-02-06] VITALS (63 sets, daily range): BP systolic 110–264; BP diastolic 67–127; PULSE 67–101; RESP 11–38; TEMP 36.7–37.4; O2SAT 85–97; BMI 21.4; BMI 24.5
--- OUTSIDE RECORDS SUMMARY | 2025-02-06 09:25 | XMS_ITS | Clinical Summary ---
Author Organization [facility] Address [address] [place] [address] Phone Care Team Providers Care Door To Door Sales Representative Name Role Phone Yaniv Moe MD Primary Care Provider [phone] Allergies No known active allergies Medications insulin [...] to other specified organism s 02/20/2019 Old PR (myocardial infarction) 07/21/2018 Chronic combined systolic and diastolic heart fa ilure 04/26/2018 Bilateral leg edema 01/16/2018 Atherosclerosis of [place] co ronary artery of [place] heart with unstable angina pectoris 01/03/2018 Status [...] Encounters Date Type Department Care Team Description 01/08/2025 External Device Data [facility] ABSTRACTION Provider, Abstract 12/25/2024 External Device Data [facility] ABSTRACTION Provider, Abstract 11/14/2024 External Device Data [facility] ABSTRACTION Provider, [...] on file Legal Sex Male 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 Gender Identity Not on file Sexual Orientation [...] Dialysis 4-dose series) 1999 06/05/2020, 02/25/2020, 01/21/2020 HPV VACCINES (1 - 3-dose SCD M series) 10/13/2006 DIABETES ANNUAL FOOT EXAM 12/01/2016 12/02/2015 DIABETES MICROALBUMIN ANNUAL SCREEN 10/22/2020 10/23/2019, 07/01/2018, 04/08/2016, Additional history exists LDL CHOLESTEROL ANNUAL 10/22/2020 0, 07/01/2018, 12/27/2017, Additional history exists FIT-DNA Q 3 years 10/13/2024 FIT/FOBT Q 1 year 10/13/2024 Flex Sig/CT Colonography Q 5 years 10/13/2024 INFLUENZA VACCINE (#1) 2024 4, 01/21/2023, 12/31/2021, Additional history exists COVID-19 Vaccine (3 - 2024-2 6 season) 2024 07/30/2020, 06/30/2020 DIABETES HBA1C Q 6 MONTHS 12/15/20242024, 06/20/2020, 06/20/2020, Additional history exists DTAP/TDAP/TD VACCINES (2 - T d or Tdap) 12/02/2031 12/01/2021, 05/12/2015 COLORECTAL SCREENING 05/11/2032 05/11/2022, 05/11/19 Colorectal Cancer Screening 05/11/2032 Medical Devices Implanted Type Area Drying Frame Operator Device Identifier Shelf Expiration Date Model / Serial / Lot Cath Dialysis Glidepath 14.5fr 23cm Std [id number] 0 Implanted:Qty: 1 on 01/01/2020 by Sudha Montes MD Catheter Right: Chest CR [employer]ARD[employer] [id number] 04/10/2021 [id number] / / [id number] Cath Pd Jez Curl 2cuff [id number] - [id number] Implanted:Qty: 1 on 01/10/2020 by Adryan Witt DO Catheter N/A: Abdomen [employer] - COVIDIEN [id number] 07/08/2024 [id number] / / [id number] Cath Dialysis Glidepath 14.5fr 24cm Std [id number] - [id number] Implanted:Qty: 1 on 01/23/2024 by Willie Umaña MD at [facility] Catheter Right: Chest BARD DAGMAR VASC [id number] 07/09/2025 [id number] / / [id number] Hemostatic Surgifoam Sz100 1973 - [id number] Implanted:Qty: 1 on 12/29/2017 by Martinez Rodrigues MD Hemostatic N/A: Chest J[employer] 09/19/20211973 / / [id number] Ring Vein Marking 10mm 35-4262 - [id number] Implanted:Qty: 2 on 12/29/2017 by Martinez Rodrigues MD Other N/A: Chest TELEFLEX- PILL WECK DERRY L P [id number] / / Description:scan # [id number] Sealant Fibrin Evicel 5ml 390 - [id number] Implanted:Qty: 1 on 12/29/2017 by Martinez Rodrigues MD Other N/A: Heart J[employer]- [employer] 08/08/2020 [id number] / / [id number] [place] Ptfe Thck 1.6mmx2.5x10.2cm [id number] - [id number] Implanted:Qty: 1 on 12/29/2017 by Martinez Rodrigues MD Tissue N/A: Heart CR [employer]ARD[employer] 10/06/2022 [id number] / / [id number] Procedures Procedure Name Priority Date/Time Associated Diagnosis Comments COLONOSCOPY REPORT 05/11/2022 9: 02 AM GETTER FILLER HEMOGLOBIN A1C Routine 06/20/2020 9:34 AM GETTER FILLER MICROALBUMIN/CREATIN INE RATIO, RANDOM UR Routine 10/23/2019 12:52 PM CDT LIPID PANEL Routine 10/23/2019 12:49 PM CDT from Last 3 Months or Most Recently Relevant to Health Maintenance Results * COLONOSCOPY REPORT (05/11/2022 9:02 AM GETTER FILLER) Narrative Procedure Note Gwendolyn Marks MD (John) - 05/11/2022 9:01 AM CST [facility] Patient Name: Jose Guadalupe Claudio Procedure Date: [...] * (ABNORMAL) HEMOGLOBIN A1C (06/20/2020 9:34 AM GETTER FILLER) HEMOGLOBIN A1C 6.1(H) <=5.6 % 06/20/2020 10:34 AM [facility] EST. AVG GLUCOSE, A1C 128 mg/dL 06/20/2020 10:34 AM [place] Blood Collection / Unknown 06/20/2020 9:34 AM GETTER FILLER 06/20/2020 9:37 AM GETTER FILLER Narrative [facility] - 06/20/2020 10:34 AM GETTER FILLER HGB A1C INTERPRETATION NORMAL: <5.7% PRE-DIABETES: 5.7 - 6.4% DIABETES: 6.5% OR GREATER Falsely low A1C measurements can occur when: 1. Anemia and/or hemolytic anemia is present. 2. Hemoglobin variants present. 3. Renal failure. 4. Transfusion of blood product in the last 120 days. We recommend ordering a fructosamine test(PSV6686) to more accurately assess glycemic status if any of the above conditions are present. Savanah Garibay MD CHEMISTRY ORDERABL ES Final Result [facility] CLIA# [id number] [address] [place] [address] [facility] [place] CLIA# [id number] [address] [place] [address] * MICROALBUMIN/CREATININE RATIO, RANDOM UR (10/23/2019 12:52 PM CDT) MICROALBUMIN, URINE >440.0 No Reference Range mg/dL 10/23/2019 6:47 PM CDT [facility] CREATININE, URINE 76.4 40.0 - 278.0 mg/dL 10/23/2019 6:47 PM CDT [facility] Comment:Reference Range vari es with fluid intake and diet. Urine URINE SPECIMEN OBTAINED BY CLEAN CATCH PROCEDURE / Unknown Collection / Unknown 10/23/2019 12:52 PM CDT 10/23/2019 3:00 PM CDT Narrative [facility] - 10/23/2019 6:47 PM CDT Condition Microalbumin/Creat ratio Normal Males <17 Normal Females <25 Microalbuminuria Males 17-299 Microalbuminuria Females 25-299 Overt proteinuria >=300 Savanah Garibay MD URINE ORDERABLES F inal Result [facility] CLIA# [id number] [address] [place] [address] * (ABNORMAL) LIPID PANEL (10/23/2019 12:49 PM CDT) CHOLESTEROL 137 <200 mg/dL 10/23/2019 4:25 PM CDT [facility] TRIGLYCERIDE 35 <150 mg/dL 10/23/2019 4:25 PM CDT [facility] HDL 62(H) 40 - 59 mg/dL 10/23/2019 4:25 PM CDT [facility] LDL CALCULATED 68 <100 mg/dL 10/23/2019 4:25 PM CDT [facility] NON-HDL CHOLESTEROL 75 <130 mg/dL 10/23/2019 4:25 PM CDT [facility] Blood Venipuncture / Unknown 10/23/2019 12:49 PM CDT 10/23/2019 3:00 PM CDT Narrative [facility] - 10/23/2019 4:25 [...] Garibay MD CHEMISTRY ORDERABL ES Final Result [facility] IA# [id number] [address] [place] [address] from Last 3 Months or Most Recently Relevant to Health Maintenance Insurance RX [facility] Medicare Part D [facility] MEDIC[facility] HMO [id number] [id number] Advance Directives For more information, please contact: [phone] * Full Code (Latest Code Status on [...] 12:59 AM 10/08/2022 8:54 PM Care Teams Door To Door Sales Representative Relationship Specialty Start Date End Date Yaniv Moe MD [address] [place] [id number] PCP - General Family Practice 10/27/23
[2025-02-06] MEDS: hyDRALAzine 20 mg/mL INJ 1 mL IVP ×2 (09:45→11:17)
[2025-02-06] MEDS: labetalol 5 mg/mL SDV 20mL 10 MG IVP (09:45)
--- NOTE | 2025-02-06 09:48 | XR_ITS ---
WS: [email or web address] Exam: XR hip RT 2-3V wo/w pel* [id number] Date/Time of Exam: 02/06/2025 9:52 AM Reason For Exam: Trauma Nondisplaced basocervical fracture of the RIGHT hip noted. There may be extension of the fracture into the intertrochanteric region. No other fractures. The visualized pelvis is intact. Moderate DJD of the joint compartment. Extensive vascular calcifications in the pelvis and about the hips. XR/XR hip RT 2-3V wo/w pel* [id number] IMPRESSION: 1. Basocervical fracture of the RIGHT femur. There may be fracture lines extend ing into the greater trochanteric region.
--- NOTE | 2025-02-06 09:53 | W.ED.EXTPRO ---
HPI - Extremity Problem General: Chief complaint: Extremity Injury, Lower Stated complaint: Fell out of wheelchair History of Present Illness: 44-year-old male presents emergency room he fell out of his wheelchair at home landed on his right hip he is complaining of right hip pain. He is extremely hypertensive denies any chest or abdominal pain denies any other injuries. Associated symptoms: Deny chest pain, fever(s) or rash Related Data Home Medications ?Medication ?Instructions ?Recorded ?Confirmed buspirone 5 mg tablet 5 mg PO TID 06/09/24 02/06/25 hydralazine 100 mg tablet 100 mg PO TID 06/09/24 02/06/25 loperamide 2 mg capsule See Rx Instructions .Route .COMPLEX 06/09/24 02/06/25 mirtazapine 15 mg tablet 7.5 mg PO QPM 06/09/24 02/06/25 ropinirole 0.5 mg tablet 0.5 mg PO QPM 06/09/24 02/06/25 sevelamer carbonate 800 mg tablet See Rx Instructions .Route .COMPLEX 06/09/24 02/06/25 venlafaxine 150 mg 150 mg PO DAILY 06/09/24 02/06/25 capsule,extended release 24 hr sodium bicarbonate 325 mg tablet 325 mg PO DAILY PRN Stomach ACID 09/19/24 02/06/25 vit B,C-folic ac 800 mcg-zinc 12.5 See Rx Instructions .Route .COMPLEX 10/13/24 02/06/25 mg-selen-D3 2,000 unit-vit E tablet (RenaPlex-D) insulin lispro 100 unit/mL See Rx Instructions .Route .COMPLEX 11/13/24 02/06/25 subcutaneous pen losartan 50 mg tablet 50 mg PO DAILY 11/13/24 02/06/25 megestrol 400 mg/10 mL (40 mg/mL) 400 mg PO DAILY 11/13/24 02/06/25 oral suspension gabapentin 300 mg capsule 300 mg PO BEDTIME 12/03/24 02/06/25 furosemide 40 mg tablet (Lasix) 40 mg PO DAILY 12/27/24 02/06/25 amlodipine 5 mg tablet 5 mg PO QPM 02/06/25 02/06/25 carvedilol 25 mg tablet 25 mg PO TID 02/06/25 02/06/25 clonidine HCl 0.3 mg tablet 0.3 mg PO TID 02/06/25 02/06/25 insulin glargine 100 unit/mL (3 10 unit SUBCUT QPM 02/06/25 02/06/25 mL) subcutaneous pen (Lantus Solostar U-100 Insulin) isosorbide mononitrate 30 mg 30 mg PO DAILY 02/06/25 02/06/25 tablet,extended release 24 hr Previous Rx's ?Medication ?Instructions ?Recorded pantoprazole 40 mg tablet,delayed 40 mg PO BIDWM #84 tabs 12/06/24 release apixaban 5 mg tablet (Eliquis) 5 mg PO BID@0900,2100 #60 tabs 12/07/24 clopidogrel 75 mg tablet 75 mg PO DAILY #90 tabs 12/27/24 Allergies Allergy/AdvReac Type Severity Reaction Status Date / Time No Known Allergies Allergy Verified 12/27/24 12:54 Review of Systems Const: Denies: fever(s) or chills Card: Denies: chest pain Resp: Denies: dyspnea GI: Denies: abdominal pain : Denies: dysuria, urinary frequency or urinary urgency Musc: Reports: joint pain (Right hip); Denies: neck pain or back pain Skin/Breast: Denies: rash PFSH ED PFSH: Medical History Anemia Hypertensive urgency Left ventricular systolic dysfunction (LVSD), NYHA class 3 Chronic hypertension ESRD (end stage renal disease) Diabetic peripheral neuropathy associated with type 2 diabetes mellitus Ingrowing toenail of left foot Hematoma of leg Non-pressure chronic ulcer of 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 Bilateral pes planus Medical non-compliance Closed right trimalleolar fracture Restless leg syndrome Peritonitis CAD (coronary artery disease) Depression End-stage renal disease on peritoneal dialysis Surgical History Hx of CABG Social History Smoking and tobacco/nicotine status: current every day tobacco/nicotine user (Cannabis/ Quit cigarettes 5 years ago) Alcohol intake: never Substance/Drug Use: current Other substance/drug use details: Medical marijuana Physical Exam Const: GENERAL APPEARANCE: cooperative ORIENTATION/CONSCIOUSNESS: Yes awake, Yes oriented to person, Yes oriented to place and Yes oriented to time HENMT: COMMON NORMALS: normocephalic, atraumatic and hearing grossly normal bilaterally HEAD & SCALP: normocephalic and atraumatic Resp: COMMON NORMALS: normal respiratory effort, No retractions, No use of accessory muscles and clear to auscultation bilaterally AUSCULTATION: clear to auscultation bilaterally Cardio: COMMON NORMALS: regular rate, regular rhythm and No murmurs present (Cardio) RATE: regular rate RHYTHM: regular rhythm GI: COMMON NORMALS: Soft to palpation and No hepatosplenomegaly present AUSCULTATION: Yes normoactive bowel sounds PALPATION: Yes Soft to palpation, No Tenderness to palpation present (GI), No Guarding due to palpation present (GI) and Yes No hepatosplenomegaly present Extremity: COMMON NORMALS: normal to inspection, capillary refill normal, no clubbing, cyanosis or edema, no calf tenderness and no pedal edema Neuro: SENSORIUM/ORIENTATION: Yes oriented to person, Yes oriented to place and Yes oriented to time Skin: COMMON NORMALS: no rashes or lesions noted GENERAL SKIN EXAM: no rashes or lesions noted Course Vital Signs: Vital signs: Vital Signs Temperature 98.6 F 02/06/25 17:30 Pulse Rate 100 02/06/25 17:30 Respiratory Rate 16 02/06/25 17:30 Blood Pressure 170/93 02/06/25 17:30 Pulse Oximetry 91 02/06/25 17:30 Oxygen Delivery Me thod Room Air 02/06/25 17:30 Fraction of Inspir ed Oxygen 21 02/06/25 12:03 MDM - Extremity (Nontraumatic) Medical Decision Making Patient has a right hip fracture at the base of the neck of the femur. No other injuries noted. Patient unfortunately also has extensive coronary artery disease he is on Eliquis and Plavix he last took his Eliquis last night. Discussed with hospitalist and orthopedist will admit. Hospitalist to stabilize anticipating patient will need 1 to 2 days off Eliquis before they can proceed with surgery. Pain medications given the emergency room discussed with patient and his family. Patient also has accelerated hypertension despite pain medication we are unable to get his blood pressure improved and ultimately did start him on nicardipine. Medical Records I reviewed the patient's medical records. Lab Data I reviewed the patient's lab results. 02/06/25 10:17 02/06/25 10:17 Radiology Impressions Hip/Pelvis X-Ray 02/06/25 09:48 IMPRESSION: 1. Basocervical fracture of the RIGHT femur. There may be fracture lines extending into the greater trochanteric region. Chest X-Ray 02/06/25 10:14 IMPRESSION: 1. No acute cardiopulmonary finding. Femur X-Ray 02/06/25 10:15 IMPRESSION: 1. Fracture of the proximal femur with coxa vera deformity. The remainder of the femur is normal. Hip CT 02/06/25 11:34 IMPRESSION: 1. Acute RIGHT hip fracture. Fracture extends through the femoral neck and continues inferiorly to the the lesser trochanter. No significant displacement. 2. Extensive atherosclerotic calcified plaque in the arteries. Laboratory Results WBC 18.25 10^3/uL (3.29-11.43) H 02/06/25 10:17 RBC 4.15 10^6/uL (3.85-5.65) 02/06/25 10:17 Hgb 12.40 g/dL (11.27-16.99) 02/06/25 10:17 Hct 38.6 % (37-53) 02/06/25 10:17 MCV 93.0 fl (82-101) 02/06/25 10:17 MCH 29.9 pg (27-33) 02/06/25 10:17 MCHC 32.1 g/dL (30-55) 02/06/25 10:17 RDW 14.6 % (12.1-15.1) 02/06/25 10:17 Plt Count 213 10^3/cmm (157-399) 02/06/25 10:17 MPV 9.9 fL (7.4-10.4) 02/06/25 10:17 Neut % (Auto) 85.6 % 02/06/25 10:17 Lymph % (Auto) 6.4 % 02/06/25 10:17 [place] % (Auto) 5.5 % 02/06/25 10:17 Eos % (Auto) 1.6 % 02/06/25 10:17 Baso % (Auto) 0.4 % 02/06/25 10:17 Neut # (Auto) 15.59 10^3/uL (1.8-7.7) H 02/06/25 10:17 Lymph # (Auto) 1.2 10^3/uL (0.8-4.8) 02/06/25 10:17 [place] # (Auto) 1.0 10^3/uL (0.2-0.9) H 02/06/25 10:17 Eos # (Auto) 0.3 10^3/uL (0.0-0.8) 02/06/25 10:17 Baso # (Auto) 0.1 10^3/uL (0.0-0.1) 02/06/25 10:17 Nucleated RBC % (auto) 0 % 02/06/25 10:17 Nucleated RBCs # 0.0 /100WBC 02/06/25 10:17 Sodium 133 mmol/L (136-145) L 02/06/25 10:17 Potassium 6.2 mmol/L (3.5-5.1) H 02/06/25 10:17 Chloride 91 mmol/L (98-107) L 02/06/25 10:17 Carbon Dioxide 23 mmol/L (22-29) 02/06/25 10:17 Anion Gap 25.2 (5-19) H 02/06/25 10:17 BUN 54 mg/dL (6-20) H 02/06/25 10:17 Creatinine 6.4 mg/dL (0.7-1.2) H* 02/06/25 10:17 GFR Calculation 9.5 mL/min (90-130) L 02/06/25 10:17 Glucose 181 mg/dL (65-115) H 02/06/25 10:17 Calculated Osmolality 295 mOsm/kg (285-295) 02/06/25 10:17 Calcium 9.9 mg/dL (8.5-10.5) 02/06/25 10:17 Total Bilirubin 0.3 mg/dL (0.15-1.2) 02/06/25 10:17 AST 18 U/L (0-40) 02/06/25 10:17 ALT 10 U/L (0-41) 02/06/25 10:17 Alkaline Phosphatase 75 U/L (40-130) 02/06/25 10:17 Total Protein 7.4 g/dL (6.6-8.7) 02/06/25 10:17 Albumin 4.1 g/dL (3.5-5.2) 02/06/25 10:17 Globulin 3.3 g/dL (1.3-4.6) 02/06/25 10:17 All radiology interpretation(s) finalized by discharge EKG Data EKG 1: I personally reviewed and interpreted this EKG as follows: Interpretation: EKG 02/06/2025 10:56 AM sinus rhythm rate of 69. [place] 1-66 QTc [address] changes noted. Nonspecific ST changes laterally. Compared to EKG 12/03/2024 no significant change. Discharge Plan Discharge Patient Disposition: Admitted As Inpatient Admit Provider: Chris Arnold Clinical Impression: Closed right hip fracture, Chronic hypertension, Multiple subsegmental pulmonary emboli without acute cor pulmonale, Ischemic congestive cardiomyopathy, Accelerated hypertension Condition: Stable Coding Level of Care Code ED Health Social Work Professor for Monik Riley
[2025-02-06] MEDS: fentaNYL 50 mcg/mL INJ 2mL IVP (09:58)
[2025-02-06] MEDS: ondansetron 2 mg/ML SDV 2 mL 4 MG IVP (09:58)
--- NOTE | 2025-02-06 10:14 | XR_ITS ---
WS: [email or web address] Exam: XR chest 1V portable [id number] Date/Time of Exam: 02/06/2025 10:14 AM Reason For Exam: FALL Comparison 12/03/2024. The lungs are fully inflated and clear. Cardiomediastinal silhouette is unremarkable. Signs of previous CABG surgery. A RIGHT subclavian double lumen dialysis catheter is in satisfactory position ending near the cavoatrial junction. XR/XR chest 1V portable [id number] IMPRESSION: 1. No acute cardiopulmonary finding.
--- NOTE | 2025-02-06 10:15 | XR_ITS ---
WS: [email or web address] Exam: XR femur RT min 2V* [id number] Date/Time of Exam: 02/06/2025 10:15 AM Reason For Exam: FALL Basocervical fracture of the RIGHT hip noted with some coxa vera deformity. The remainder of the femur is intact. Extensive vascular calcifications about the femur. XR/XR femur RT min 2V* [id number] IMPRESSION: 1. Fracture of the proximal femur with coxa vera deformity. The remainder of th e femur is normal.
[2025-02-06 10:36] LABS: Hematocrit 38.6 % (37-53); Hemoglobin 12.40 g/dL (11.27-16.99); Mean Corpuscular HGB Conc 32.1 g/dL (30-55); Mean Corpuscular Hemoglobin 29.9 pg (27-33); Mean Corpuscular Volume 93.0 fl (82-101); Nucleated Red Blood Cells % 0 %; Platelet Count 213 10^3/cmm (157-399); Red Blood Count 4.15 10^6/uL (3.85-5.65); White Blood Count 18.25 10^3/uL (3.29-11.43)
[2025-02-06 10:55] LABS: Alanine Aminotransferase 10 U/L (0-41); Albumin Level 4.1 g/dL (3.5-5.2); Alkaline Phosphatase 75 U/L (40-130); Anion Gap 25.2 (5-19); Aspartate Amino Transferase 18 U/L (0-40); Blood Urea Nitrogen 54 mg/dL (6-20); Calcium 9.9 mg/dL (8.5-10.5); Carbon Dioxide 23 mmol/L (22-29); Chloride 91 mmol/L (98-107); Creatinine Clr Calc Pharmacy 15.5091; Globulin 3.3 g/dL (1.3-4.6); Glucose 181 mg/dL (65-115); Osmolality Calculated 295 mOsm/kg (285-295); Potassium 6.2 mmol/L (3.5-5.1); Sodium 133 mmol/L (136-145); Total Protein 7.4 g/dL (6.6-8.7)
--- NOTE | 2025-02-06 10:56 | ECG_ITS ---
[facility]: 2025-02-06 Pat Name: Jose Guadalupe Claudio Department: Room: Gender: Male Icer Hand: : 1980 Requested By: Abhinav Lentz Order Number: [id number] Cristobal MD: Jerald Garza M.D. Measurements Intervals [place] Rate: 69 P: 66 WA: 166 QRS: 80 QRSD: 113 T: 90 QT: 444 QTc: 478 Interpretive Statements SINUS RHYTHM POSSIBLE LEFT ATRIAL ENLARGEMENT [-0.1mV P-WAVE IN V1/V2] ANTEROSEPTAL MYOCARDIAL INFARCTION , OF INDETERMINATE AGE [40+ ms Q WAVE IN V1-V4] Compared to ECG 12/03/2024 14:12:34 ST DEPRESSION NO LONGER PRESENT IN THE ANTEROLATERAL LEADS Electronically Signed On 02-07-2025 19:34:08 CDT by Jerald Garza M.D. [email or web address]
[2025-02-06] MEDS: fentaNYL 50 mcg/mL INJ 2mL 100 MCG IVP (10:59)
--- NOTE | 2025-02-06 11:34 | CT_ITS ---
WS: [id number] CT RIGHT HIP, NONCONTRAST HISTORY: Preoperative planning, hip fracture Technique: All CT scans at [facility] use at least one of these dose optimization techniques: automated exposure control; mA and/or kV adjustment per patient size (includes targeted exams where dose is matched to clinical indication); or iterative reconstruction. DLP: 380.73 mGy.cm COMPARISON: Femur 02/06/2025, RIGHT hip 02/06/2025 Study is compromised by motion artifact. Patient's extremity is held in external rotation. Fracture extends through the mid femoral neck. Fracture extends inferiorly to the lesser trochanter. No significant displacement. Pubic rami are intact. No acetabular fracture. No displacement of the femoral head from the acetabulum. Extensive atherosclerotic calcifications in the iliac and femoral arteries. Soft tissue edema surrounding the hip. CT/CT hip RT wo con* [id number] IMPRESSION: 1. Acute RIGHT hip fracture. Fracture extends through the femoral neck and con tinues inferiorly to the the lesser trochanter. No significant displacement. 2. Extensive atherosclerotic calcified plaque in the arteries.
[2025-02-06] MEDS: HYDROmorphone 0.5 MG/0.5 ML INJ IVP ×3 (12:11→20:02)
[2025-02-06] MEDS: sodium bicarbonate 150 MEQ in dextrose 5% 250 ML 700 MEQ IV (12:15)
[2025-02-06] MEDS: calcium gluconate 0.1 gm/mL 10% SDV 10mL 1 GM IVP (12:15)
[2025-02-06] MEDS: insulin regular-human 100 units/1 mL 10 UNIT IVP (13:04)
[2025-02-06] MEDS: nicardipine 20 MG/200 ML PREMIX 5 MG IV (13:25)
--- NOTE | 2025-02-06 14:57 | PM.HP ---
Documented by User: JOHNNA Holley STDNT 02/06/25 16:50 Providers/Chief Complaint Admitting Physician: Chris Arnold Primary Care Provider: Yaniv Moe MD Chief Complaint: Fell out of wheelchair History of Present Illness Jose Guadalupe Claudio is a 44 year old male with history of NYHA class 3 left ventricular systolic dysfunction (LVSD), chronic hypertension with recurrent hypertensive crises, end-stage renal disease on hemodialysis, type 2 diabetes mellitus with diabetic peripheral neuropathy, pulmonary embolism coronary artery disease s/p stent last performed 11/02, and depression. He is wheelchair-bound. Patient fell asleep in his wheelchair and fell out of it. He did not lose consciousness and did not hit his head. He is currently at an 8 out of 10 pain that shoots to 15/10 whenever his leg spasms due to his restless leg syndrome. His current pain medications only take the edge off but do not adequately provide relief. He wishes to have muscle relaxants to stop the spasms from occurring. He was unable to take any of his antihypertensives this morning. He had a blood pressure of 246/127. He reported no headache, changes in vision, chest pain, shortness of breath, abdominal pain, melena, hematochezia, hematuria. He does endorse chronic diarrhea. His last stent was performed in October 2024, and he follows up with Dr. Monaco in cardiology. He is on chronic anticoagulation with Eliquis and Plavix. He reports no missed doses of his blood thinners. He last took his Plavix yesterday and last took his Eliquis last night. Patient receives hemodialysis 3 times a week on [facility]. He was scheduled for dialysis today. He has never had to shorten duration of dialysis nor missed dialysis. Patient currently lives at home with his and kids. He has no advance directive and assumes his is direct power of windows server administrator. He expresses wish to be a full code. Review of Systems Const: Denies: fever(s) or chills Eyes: Denies: change in vision Card: Denies: chest pain or palpitations Resp: Denies: dyspnea or non-productive cough GI: Reports: diarrhea (chronic, takes loperamide); Denies: abdominal pain, nausea, vomiting or hematochezia : Denies: hematuria Neuro: Denies: headache(s) Medications/Allergies Home Medications ?Medication ?Instructions ?Recorded ?Confirmed ?Last Taken ?Type buspirone 5 mg tablet 5 mg PO TID 06/09/24 02/06/25 02/05/25 History hydralazine 100 mg tablet 100 mg PO TID 06/09/24 02/06/25 02/05/25 History loperamide 2 mg capsule See Rx Instructions .Route .COMPLEX 06/09/24 02/06/25 02/05/25 History mirtazapine 15 mg tablet 7.5 mg PO QPM 06/09/24 02/06/25 02/05/25 History ropinirole 0.5 mg tablet 0.5 mg PO QPM 06/09/24 02/06/25 02/05/25 History sevelamer carbonate 800 mg tablet See Rx Instructions .Route .COMPLEX 06/09/24 02/06/25 02/05/25 History venlafaxine 150 mg 150 mg PO DAILY 06/09/24 02/06/25 02/05/25 History capsule,extended release 24 hr sodium bicarbonate 325 mg tablet 325 mg PO DAILY PRN Stomach ACID 09/19/24 02/06/25 12/03/24 07:00 History vit B,C-folic ac 800 mcg-zinc 12.5 See Rx Instructions .Route .COMPLEX 10/13/24 02/06/25 02/04/25 History mg-selen-D3 2,000 unit-vit E tablet (RenaPlex-D) insulin lispro 100 unit/mL See Rx Instructions .Route .COMPLEX 11/13/24 02/06/25 12/02/24 History subcutaneous pen losartan 50 mg tablet 50 mg PO DAILY 11/13/24 02/06/25 02/05/25 History megestrol 400 mg/10 mL (40 mg/mL) 400 mg PO DAILY 11/13/24 02/06/25 02/05/25 History oral suspension gabapentin 300 mg capsule 300 mg PO BEDTIME 12/03/24 02/06/25 02/05/25 History pantoprazole 40 mg tablet,delayed 40 mg PO BIDWM #84 tabs 12/06/24 02/06/25 02/05/25 Rx release apixaban 5 mg tablet (Eliquis) 5 mg PO BID@0900,2100 #60 tabs 0802/06/25 02/05/25 Rx clopidogrel 75 mg tablet 75 mg PO DAILY #90 tabs 12/27/24 02/06/25 02/05/25 Rx furosemide 40 mg tablet (Lasix) 40 mg PO DAILY 12/27/24 02/06/25 02/05/25 History amlodipine 5 mg tablet 5 mg PO QPM 02/06/25 02/06/25 02/05/25 History carvedilol 25 mg tablet 25 mg PO TID 02/06/25 02/06/25 02/05/25 History clonidine HCl 0.3 mg tablet 0.3 mg PO TID 02/06/25 02/06/25 02/05/25 History insulin glargine 100 unit/mL (3 10 unit SUBCUT QPM 02/06/25 02/06/25 Unknown History mL) subcutaneous pen (Lantus Solostar U-100 Insulin) isosorbide mononitrate 30 mg 30 mg PO DAILY 02/06/25 02/06/25 02/05/25 History tablet,extended release 24 hr Allergies Allergy/AdvReac Type Severity Reaction Status Date / Time No Known Allergies Allergy Verified 12/27/24 12:54 PFSH Acute PFSH: Medical History Anemia Hypertensive urgency Left ventricular systolic dysfunction (LVSD), NYHA class 3 Chronic hypertension ESRD (end stage renal disease) Diabetic peripheral neuropathy associated with type 2 diabetes mellitus Ingrowing toenail of left foot Hematoma of leg Non-pressure chronic ulcer of 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 Bilateral pes planus Medical non-compliance Closed right trimalleolar fracture Restless leg syndrome Peritonitis CAD (coronary artery disease) Depression End-stage renal disease on peritoneal dialysis Surgical History Hx of CABG Social History Smoking and tobacco/nicotine status: current every day tobacco/nicotine user (Cannabis/ Quit cigarettes 5 years ago) Alcohol intake: never Substance/Drug Use: current Other substance/drug use details: Medical marijuana Vitals/I&O/Wt Last Vital Signs Temp 98.1 F 02/06/25 09:06 Pulse 89 02/06/25 14:25 Resp 25 H 02/06/25 14:25 BP 179/92 02/06/25 14:25 Pulse Ox 91 02/06/25 14:25 O2 Del Method Room Air 02/06/25 13:33 FiO2 21 02/06/25 12:03 02/05/25 02/06/25 02/06/25 22:59 06:59 14:59 Intake Total 412.25 / 412.25 Balance 412.25 / 412.25 Weight last 48 hrs Weight 71.668 kg Physical Exam Narrative: Lower extremity and lower abdominal exam deferred due to hip pain. Const: COMMON NORMALS: patient oriented x3 and alert GENERAL APPEARANCE: in distress HENMT: COMMON NORMALS: atraumatic Resp: COMMON NORMALS: normal respiratory effort and clear to auscultation bilaterally Cardio: COMMON NORMALS: regular rate, regular rhythm, S1 normal heart sound present and S2 normal heart sound present GI: AUSCULTATION: Yes normoactive bowel sounds Neuro: COMMON NORMALS: patient oriented x3 Psych: COMMON NORMALS: mental status grossly normal and Normal thought process present Skin: COMMON NORMALS: no rashes or lesions noted Data 02/06/25 10:17 02/06/25 10:17 A&P Assessment and plan 1. Hypertensive urgency: 2. Closed right hip fracture: Plan: 1. Acute hip fracture Imaging: Hip and pelvis x-ray performed read to have a basocervical fracture of the right femur. Fracture of the proximal femur with coxa vera deformity read on femur x-ray. Hip CT confirms acute right hip fracture that extends through the femoral neck and continues inferiorly to the lesser trochanter without significant displacement. - Given patient's history of coronary artery disease, pulmonary embolism, ischemic stroke, stent thrombosis, and stent restenosis, there is a large risk of thrombus formation or thromboembolism if clopidogrel or apixaban are stopped in order to perform repair of the femoral fracture. Discussion will need to be made with cardiology and orthopedic surgery to assess options of either stopping Plavix for the surgery or doing the surgery on Plavix. Cardiology recommends not to withhold Plavix during the surgery, but if the surgeon is uncomfortable performing the surgery with Plavix, it can be withheld and replaced with aspirin. - Heparin started for thromboembolism (TE) prophylaxis - Megestrol held as TE prophylaxis 2. End-stage renal disease with dialysis - Leukocytosis at 18,000 - Potassium 6.2. Patient was given 15gm Kayexalate and 20mg Albuterol inhaler in ED. - Creatinine 6.4 and BUN 54. - Patient originally scheduled for dialysis today. 3. Left ventricular systolic dysfunction, NYHA class 3 - No crackles or signs of fluid overload assessed on exam, cardiopulmonary chest x-ray was normal without findings of fluid overload. 4. Hypertensive urgency - patient had 264/127 during ED triage, currently 179/92 with administration of 40mg hydralazine, 10mg labetalol, and 150 mcg fentanyl done in the ED. Patient remains on IV nicardipine. Causes may be multifactorial with rebound hypertension from missing clonidine dose, missing all other antihypertensives this morning, severe pain, scheduled dialysis. - will resume all oral home antihypertensives. - Target systolic blood pressure range is 160-170. 5. Severe acute pain - Will order dilaudid for pain. - Will order Flexeril for muscle spasm control with caution with ESRD affecting medication clearance and possible overmedication. 6. Type 2 diabetes mellitus with peripheral neuropathy - Will start sliding scale insulin. - Continue home gabapentin. Plan currently is to finalize discussion plan for anticoagulation pre-operatively, maintain and slowly improve blood pressure status to normotensive, and monitor for new onset thromboembolism. Tristin Mclean, MS3 PDMP PDMP Reviewed: Not Reviewed Attestations Medical Necessity Statement*: Repair of hip fracture with attention to thromboembolism risk, monitor of hypertensive crisis, expected to stay past 2 midnights. Coding Level of Care Code 63368 Diagnoses Hypertensive urgency I16.0 Closed right hip fracture S72.001A Documented by User: Chris Arnold MD 02/06/25 17:46 Providers/Chief Complaint Chief Complaint: Fell out of wheelchair Medications/Allergies Home Medications ?Medication ?Instructions ?Recorded ?Confirmed ?Last Taken ?Type buspirone 5 mg tablet 5 mg PO TID 06/09/24 02/06/25 02/05/25 History hydralazine 100 mg tablet 100 mg PO TID 06/09/24 02/06/25 02/05/25 History loperamide 2 mg capsule See Rx Instructions .Route .COMPLEX 06/09/24 02/06/25 02/05/25 History mirtazapine 15 mg tablet 7.5 mg PO QPM 06/09/24 02/06/25 02/05/25 History ropinirole 0.5 mg tablet 0.5 mg PO QPM 06/09/24 02/06/25 02/05/25 History sevelamer carbonate 800 mg tablet See Rx Instructions .Route .COMPLEX 06/09/24 02/06/25 02/05/25 History venlafaxine 150 mg 150 mg PO DAILY 06/09/24 02/06/25 02/05/25 History capsule,extended release 24 hr sodium bicarbonate 325 mg tablet 325 mg PO DAILY PRN Stomach ACID 09/19/24 02/06/25 12/03/24 07:00 History vit B,C-folic ac 800 mcg-zinc 12.5 See Rx Instructions .Route .COMPLEX 10/13/24 02/06/25 02/04/25 History mg-selen-D3 2,000 unit-vit E tablet (RenaPlex-D) insulin lispro 100 unit/mL See Rx Instructions .Route .COMPLEX 11/13/24 02/06/25 12/02/24 History subcutaneous pen losartan 50 mg tablet 50 mg PO DAILY 11/13/24 02/06/25 02/05/25 History megestrol 400 mg/10 mL (40 mg/mL) 400 mg PO DAILY 11/13/24 02/06/25 02/05/25 History oral suspension gabapentin 300 mg capsule 300 mg PO BEDTIME 12/03/24 02/06/25 02/05/25 History pantoprazole 40 mg tablet,delayed 40 mg PO BIDWM #84 tabs 12/06/24 02/06/25 02/05/25 Rx release apixaban 5 mg tablet (Eliquis) 5 mg PO BID@0900,2100 #60 tabs 12/07/24 02/06/25 02/05/25 Rx clopidogrel 75 mg tablet 75 mg PO DAILY #90 tabs 12/27/24 02/06/25 02/05/25 Rx furosemide 40 mg tablet (Lasix) 40 mg PO DAILY 12/27/24 02/06/25 02/05/25 History amlodipine 5 mg tablet 5 mg PO QPM 02/06/25 02/06/25 02/05/25 History carvedilol 25 mg tablet 25 mg PO TID 02/06/25 02/06/25 02/05/25 History clonidine HCl 0.3 mg tablet 0.3 mg PO TID 02/06/25 02/06/25 02/05/25 History insulin glargine 100 unit/mL (3 10 unit SUBCUT QPM 02/06/25 02/06/25 Unknown History mL) subcutaneous pen (Lantus Solostar U-100 Insulin) isosorbide mononitrate 30 mg 30 mg PO DAILY 02/06/25 02/06/25 02/05/25 History tablet,extended release 24 hr Allergies Allergy/AdvReac Type Severity Reaction Status Date / Time No Known Allergies Allergy Verified 12/27/24 12:54 PFSH Acute PFSH: Medical History Anemia Hypertensive urgency Left ventricular systolic dysfunction (LVSD), NYHA class 3 Chronic hypertension ESRD (end stage renal disease) Diabetic peripheral neuropathy associated with type 2 diabetes mellitus Ingrowing toenail of left foot Hematoma of leg Non-pressure chronic ulcer of 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 Bilateral pes planus Medical non-compliance Closed right trimalleolar fracture Restless leg syndrome Peritonitis CAD (coronary artery disease) Depression End-stage renal disease on peritoneal dialysis Surgical History Hx of CABG Social History Smoking and tobacco/nicotine status: current every day tobacco/nicotine user (Cannabis/ Quit cigarettes 5 years ago) Alcohol intake: never Substance/Drug Use: current Other substance/drug use details: Medical marijuana Data 02/06/25 10:17 02/06/25 10:17 A&P Assessment and plan 1. Hypertensive urgency: 2. Closed right hip fracture: Plan: 1. Acute hip fracture Imaging: Hip and pelvis x-ray performed read to have a basocervical fracture of the right femur. Fracture of the proximal femur with coxa vera deformity read on femur x-ray. Hip CT confirms acute right hip fracture that extends through the femoral neck and continues inferiorly to the lesser trochanter without significant displacement. - Given patient's history of coronary artery disease, pulmonary embolism, ischemic stroke, stent thrombosis, and stent restenosis, there is a large risk of thrombus formation or thromboembolism if clopidogrel or apixaban are stopped in order to perform repair of the femoral fracture. Discussion will need to be made with cardiology and orthopedic surgery to assess options of either stopping Plavix for the surgery or doing the surgery on Plavix. Cardiology recommends not to withhold Plavix during the surgery, but if the surgeon is uncomfortable performing the surgery with Plavix, it can be withheld and replaced with aspirin. - Heparin started for thromboembolism (TE) prophylaxis - Megestrol held as TE prophylaxis 2. End-stage renal disease with dialysis - Leukocytosis at 18,000 - Potassium 6.2. Patient was given 15gm Kayexalate and 20mg Albuterol inhaler in ED. - Creatinine 6.4 and BUN 54. - Patient originally scheduled for dialysis today. 3. Left ventricular systolic dysfunction, NYHA class 3 - No crackles or signs of fluid overload assessed on exam, cardiopulmonary chest x-ray was normal without findings of fluid overload. 4. Hypertensive urgency - patient had 264/127 during ED triage, currently 179/92 with administration of 40mg hydralazine, 10mg labetalol, and 150 mcg fentanyl done in the ED. Patient remains on IV nicardipine. Causes may be multifactorial with rebound hypertension from missing clonidine dose, missing all other antihypertensives this morning, severe pain, scheduled dialysis. - will resume all oral home antihypertensives. - Target systolic blood pressure range is 160-170. 5. Severe acute pain - Will order dilaudid for pain. - Will order Flexeril for muscle spasm control with caution with ESRD affecting medication clearance and possible overmedication. 6. Type 2 diabetes mellitus with peripheral neuropathy - Will start sliding scale insulin. - Continue home gabapentin. Plan currently is to finalize discussion plan for anticoagulation pre-operatively, maintain and slowly improve blood pressure status to normotensive, and monitor for new onset thromboembolism. Tristin Mclean, MS3 Patient seen and examined independently and assessment and documentation reviewed with medical student. This is a 44-year-old man with end-stage renal disease on hemodialysis, coronary artery disease with prior coronary artery bypass grafting and percutaneous coronary interventions, hypertension, type 2 diabetes mellitus, anemia, depression, congestive heart failure, history of pulmonary emboli on anticoagulation, and prior stroke (wheelchair-bound) who presents after falling from his wheelchair when he fell asleep and landed on a hardwood floor. Reports severe right hip pain rated 8?9/10 at baseline with intermittent muscle spasms that increase pain to 15/10 and are described as blinding, mind-altering. Denies loss of consciousness or head strike. Reports taking apixaban (Eliquis) nightly; last dose last night. Reports taking clopidogrel (Plavix) with last dose yesterday. States manages medications due to memory issues after prior stroke. Blood pressure medications include hydralazine and clonidine; typically takes clonidine three times daily and missed doses today (last taken ~2 a.m. last night). Reports regular hemodialysis sessions without missed or shortened treatments. Review of systems: Denies chest pain, shortness of breath, vision changes, headaches, abdominal pain, nausea, or vomiting. Endorses diarrhea yesterday and reports recurrent/chronic diarrhea; denies significant blood in stool and denies hemoptysis. Denies marijuana use and denies current cigarette/cigar use; drinks about one beer per day; denies illicit drugs. Lives with and two children. Code status discussed: desires full resuscitation ( do everything ). Uncertain about durable power of windows server administrator, likely . PE Gen: Antalgic positioning with elevated RLE. Intermittent muscle cramps with pain. Awake and alert. CV: no JVD, RRR, no MRG Pulm: CTAB Abdo: soft,NT ND, scars after past HD cath Ext: no edema or rash AP Right femoral neck fracture (right hip fracture) after fall : Hip/pelvis X-ray showed a basic cervical fracture of the right femur, possibly extending toward the greater trochanteric region. Orthopedics consulted; pending assessment for surgical intervention. Reviewed vitals, CBC, CMP, hip and pelvis x-ray right femur x-ray right hip CT chest x-ray, EKG with sinus rhythm heart on my interpretation, pending official read, reviewed ED provider note, discussed with ED provider. Discussed with orthopedic surgeon. And got in touch with financial manager. He otherwise has been at baseline state of health, overall with multiple comorbidities including cardiovascular comorbidities with history of CAD, CABG, 2 stents including in August and October. Discussed with patient. Given recent stenting if possible to continue Plavix through the surgery, continue, otherwise may have to consider withholding, possibly with low-dose aspirin instead. With history of PE continue to need question with bridging with heparin drip, with holding Eliquis with anticipation of surgery. - Orthopedics consulted for further assessment and management. - Pending assessment for surgical intervention for right hip repair after fracture. Procedure tentatively may be planned for Tuesday after holding Eliquis. - Continue optimization of blood pressure control the meantime. Pain control, contributing to hypertension. Acetaminophen as needed hydrocodone as needed for moderate pain, IV Dilaudid as needed for severe breakthrough pain which she has been requiring. Additionally with muscle spasms contributing to painful episodes, Flexeril as needed. Discussed with him and nursing staff risk of mental status change, respiratory depression with these medications particularly in the setting of ESRD. Hypertensive emergency : Presented with blood pressure 264/127 mmHg; improved to 179/92 mmHg after hydralazine and labetalol. ICU admission with nicardipine drip initiated. - Admit to ICU with nicardipine drip (continue and wean as able). - Maintain blood pressure without further rapid decrease at this time. - Resume home antihypertensives: amlodipine, carvedilol, clonidine, hydralazine, isosorbide mononitrate (Imdur), losartan. Wean off nicardipine drip. Requesting current target blood pressures 165/95. Gradually continue to lower beyond that over next 24-48 hours. Monitor for risk of hypotension. Pending nephrology assessment for continued hemodialysis. Hyperkalemia : Potassium 6.2 mmol/L in ED; received temporizing therapies. - Administered calcium gluconate, sodium bicarbonate, sodium polystyrene sulfonate (Kayexalate), and insulin for hyperkalemia. - Reassess chemistry after treatment. - Due for dialysis today pending nephrology evaluation. End-stage renal disease on hemodialysis : Reports adherence to full dialysis sessions; nephrology consulted in ED. - Continue hemodialysis. - Nephrology consultation obtained in ED; proceed per nephrology recommendations. Anticoagulation management with recent drug-eluting stents : History of pulmonary emboli on apixaban (last dose last night) and recent coronary stents with clopidogrel (last dose yesterday). Surgical planning requires interruption of apixaban; management of clopidogrel to be coordinated with cardiology given recent stenting. - Hold apixaban (Eliquis) for anticipated surgery. - Bridge with heparin drip while off apixaban (given history of pulmonary emboli). - Discussed clopidogrel (Plavix) management with cardiology; consider continuing Plavix if possible for surgery, otherwise consider holding with switch to aspirin if necessary. - Coordinating timing of surgery with required antiplatelet/anticoagulant management. Severe acute pain with muscle spasms : Significant right hip pain with intermittent severe spasms; IV opioids provided partial relief. - Continue intravenous hydromorphone (Dilaudid) as needed for severe breakthrough pain. - Hydrocodone as needed for moderate pain. - Consider muscle relaxer as needed for spasms with caution due to end-stage renal disease (monitor for sedation). Type 2 diabetes mellitus : On insulin glargine and sliding scale insulin; diet addressed. - Continue insulin glargine (Lantus). - Use sliding scale insulin. - Consistent carbohydrate diet. - Monitor postprandial glucose. Congestive heart failure/cardiomyopathy : Prior low ejection fraction reported; monitor volume status. - Monitor for signs of fluid overload; currently without decompensation. Cardiac diet. - Continue hemodialysis. Continue Lasix. Continue cardiac medications as above including ARB. Chronic diarrhea : Reports recurrent/chronic diarrhea; uses loperamide as needed. - Continue loperamide (Imodium) as needed. Monitor for risk of constipation with opioids. Chris Arnold MD PDMP PDMP Reviewed: Not Reviewed Attestations Medical Necessity Statement*: Admission of over 2 midnights anticipated for assessment management of repair of hip fracture with attention to thromboembolism risk, monitor of hypertensive crisis and gentleman with underlying coronary disease with recent stenting on antiplatelet and additional comorbidities. and High MDM includes amount and/or complexity of data reviewed/ordered [ previous or external records, resulted lab(s)/test(s), ordered lab(s)/test(s), independent test interpretation and other healthcare professional discussion] and described risk of complication, morbidity or mortality of management as documented Diagnoses Hypertensive urgency I16.0 Closed right hip fracture S72.001A
--- NOTE | 2025-02-06 15:00 | PC.NURSE ---
Called Dr Arnold- re: patient reporting pain 9/10 in rt leg and he has been crying out. Verbal order to give his Dilaudid 0.5mg Q 3hrs until he gets to ICU. rbvo.
[2025-02-06] MEDS: nicardipine 20 MG/200 ML PREMIX 150 MG IV ×5 (17:10→23:11)
[2025-02-06] MEDS: HYDROcodone-acetaminophen 5-325 mg Tablet 1 TAB PO ×2 (17:28→23:07)
--- NOTE | 2025-02-06 17:56 | PC.NURSE ---
Dr. Arnold ordered to get a PTT blood draw before starting the heparin drip.
[2025-02-06] MEDS: insulin glargine 100 units/1 mL 10 UNIT SUBCUT (18:03)
[2025-02-06 18:56] LABS: Partial Thromboplastin Time 36.8 SECONDS (23.9-36.7)
[2025-02-06 19:01] LABS: Potassium 4.4 mmol/L (3.5-5.1)
--- NOTE | 2025-02-06 19:03 | PM.CONSULT ---
Providers/Reason For Consult Consulting Physician/Specialty*: Aram Liao DO/orthopedic surgery Reason for Consult*: Right hip fracture Requesting Physician: Dr. Torres Attending Physician: Chris Arnold Primary Care Provider: Yaniv Moe MD History of Present Illness History of Present Illness Jose Guadalupe Claudio is a 44 year old male who fell out of his wheelchair at home and landed on his right hip is complaining of right hip pain presents emergency department and was found to have a displaced right proximal femur fracture consistent with basicervical with intertrochanteric extension. Patient has significant past medical history of coronary artery disease end-stage renal disease on dialysis chronic hypertension recent stent placed back in October 2024 and is on Plavix he also has Eliquis that he takes daily which he had his last dose just last night. Also has history of pulmonary embolism he is wheelchair-bound at baseline sounds as though he will do some transfers. Patient complaining of right hip pain denies any pain elsewhere. Currently receiving dialysis in ICU upon my evaluation. Brother at bedside. Review of Systems General: Reports: 10 or more systems reviewed and unremarkable except in HPI and below Medications/Allergies Home Medications ?Medication ?Instructions ?Recorded ?Confirmed ?Last Taken ?Type buspirone 5 mg tablet 5 mg PO TID 06/09/24 02/06/25 02/05/25 History hydralazine 100 mg tablet 100 mg PO TID 06/09/24 02/06/25 02/05/25 History loperamide 2 mg capsule See Rx Instructions .Route .COMPLEX 06/09/24 02/06/25 02/05/25 History mirtazapine 15 mg tablet 7.5 mg PO QPM 06/09/24 02/06/25 02/05/25 History ropinirole 0.5 mg tablet 0.5 mg PO QPM 06/09/24 02/06/25 02/05/25 History sevelamer carbonate 800 mg tablet See Rx Instructions .Route .COMPLEX 06/09/24 02/06/25 02/05/25 History venlafaxine 150 mg 150 mg PO DAILY 06/09/24 02/06/25 02/05/25 History capsule,extended release 24 hr sodium bicarbonate 325 mg tablet 325 mg PO DAILY PRN Stomach ACID 09/19/24 02/06/25 12/03/24 07:00 History vit B,C-folic ac 800 mcg-zinc 12.5 See Rx Instructions .Route .COMPLEX 10/13/24 02/06/25 02/04/25 History mg-selen-D3 2,000 unit-vit E tablet (RenaPlex-D) insulin lispro 100 unit/mL See Rx Instructions .Route .COMPLEX 11/13/24 02/06/25 12/02/24 History subcutaneous pen losartan 50 mg tablet 50 mg PO DAILY 11/13/24 02/06/25 02/05/25 History megestrol 400 mg/10 mL (40 mg/mL) 400 mg PO DAILY 11/13/24 02/06/25 02/05/25 History oral suspension gabapentin 300 mg capsule 300 mg PO BEDTIME 12/03/24 02/06/25 02/05/25 History pantoprazole 40 mg tablet,delayed 40 mg PO BIDWM #84 tabs 12/06/24 02/06/25 02/05/25 Rx release apixaban 5 mg tablet (Eliquis) 5 mg PO BID@0900,2100 #60 tabs 12/07/24 02/06/25 02/05/25 Rx clopidogrel 75 mg tablet 75 mg PO DAILY #90 tabs 12/27/24 02/06/25 02/05/25 Rx furosemide 40 mg tablet (Lasix) 40 mg PO DAILY 12/27/24 02/06/25 02/05/25 History amlodipine 5 mg tablet 5 mg PO QPM 02/06/25 02/06/25 02/05/25 History carvedilol 25 mg tablet 25 mg PO TID 02/06/25 02/06/25 02/05/25 History clonidine HCl 0.3 mg tablet 0.3 mg PO TID 02/06/25 02/06/25 02/05/25 History insulin glargine 100 unit/mL (3 10 unit SUBCUT QPM 02/06/25 02/06/25 Unknown History mL) subcutaneous pen (Lantus Solostar U-100 Insulin) isosorbide mononitrate 30 mg 30 mg PO DAILY 02/06/25 02/06/25 02/05/25 History tablet,extended release 24 hr Allergies Allergy/AdvReac Type Severity Reaction Status Date / Time No Known Allergies Allergy Verified 12/27/24 12:54 Current Medications Generic Name Dose Route Start Last Admin Trade Name Freq PRN Reason Stop Dose Admin Hydrocodone Bitart/Acetaminophen 1 tab 02/06/25 16:34 02/06/25 17:28 Hydrocodone-Acetaminophen 5-325 Mg Tablet PO 1 tab Q4H PRN Administration MODERATE TO SEVERE PAIN Amlodipine Besylate 5 mg 02/06/25 17:00 02/06/25 17:11 Amlodipine 5 Mg Tablet PO 5 mg QPM JAQUELINE Administration Clopidogrel Bisulfate 75 mg 02/06/25 17:25 02/06/25 17:28 Clopidogrel 75 Mg Tablet PO 75 mg DAILY@0900 JAQUELINE Administration Cyclobenzaprine HCl 5 mg 02/06/25 16:21 02/06/25 17:31 Cyclobenzaprine 10 Mg Tablet PO 5 mg TID PRN Administration MUSCLE SPASMS Hydromorphone HCl 0.5 mg 02/06/25 11:30 02/06/25 15:05 Hydromorphone 0.5 Mg/0.5 Ml Inj IVP 0.5 mg Q4H PRN Administration PAIN Nicardipine/Sodium Chloride 20 mg in 200 mls @ 0 mls/hr 02/06/25 11:30 02/06/25 18:35 Cardene IV 15 mg/hr .Q0M JAQUELINE 150 mls/hr Protocol Administration Per Protocol Insulin Glargine 10 unit 02/06/25 17:30 02/06/25 18:03 Insulin Glargine 100 Units/1 Ml SUBCUT 10 unit QPM JAQUELINE Administration Mirtazapine 7.5 mg 02/06/25 17:00 02/06/25 17:11 Mirtazapine 15 Mg Tablet PO 7.5 mg QPM JAQUELINE Administration Pantoprazole Sodium 40 mg 02/06/25 18:00 02/06/25 17:[address] 40 Mg Tablet PO 40 mg BIDWM JAQUELINE Administration Sevelamer Carbonate 800 - 1,600 mg 02/06/25 18:00 02/06/25 18:03 Sevelamer 800 Mg Tablet PO 1,600 mg TIDWM JAQUELINE Administration PFSH Acute PFSH: Medical History (Updated 02/06/25 @ 18:11 by Abhinav Torres DO) Anemia Hypertensive urgency Left ventricular systolic dysfunction (LVSD), NYHA class 3 Chronic hypertension ESRD (end stage renal disease) Diabetic peripheral neuropathy associated with type 2 diabetes mellitus Ingrowing toenail of left foot Hematoma of leg Non-pressure chronic ulcer of 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 Bilateral pes planus Medical non-compliance Closed right trimalleolar fracture Restless leg syndrome Peritonitis CAD (coronary artery disease) Depression End-stage renal disease on peritoneal dialysis Surgical History Hx of CABG Social History Smoking and tobacco/nicotine status: current every day tobacco/nicotine user (Cannabis/ Quit cigarettes 5 years ago) Alcohol intake: never Substance/Drug Use: current Other substance/drug use details: Medical marijuana Vitals/I&O/Wt Last Vital Signs Temp 98.6 F 02/06/25 17:30 Pulse 100 02/06/25 17:30 Resp 16 02/06/25 17:30 BP 170/93 02/06/25 17:30 Pulse Ox 91 02/06/25 17:30 O2 Del Method Room Air 02/06/25 17:30 FiO2 21 02/06/25 12:03 02/06/25 02/06/25 02/06/25 06:59 14:59 22:59 Intake Total 412.25 / 412.25 387.750 / 800.000 Balance 412.25 / 412.25 387.750 / 800.000 Weight last 48 hrs Weight 180 lb 12.465 oz Weight 158 lb Physical Exam Narrative: Patient is able to to follow commands and perform a standard?examination. Patient in significant pain and discomfort unable to tolerate much of exam to the lower extremity on the right side. Examination right lower?extremity: Examination of the right lower?extremity demonstrates patient has tenderness palpation of the right?hip?as well as the right lower?extremity is shortened and?externally rotated pt has unable to tolerate a logroll examination or Stinchfield examination secondary to pain patient will subtly wiggle toes but guarded secondary to pain he denies any ability of plantarflexion dorsiflexion of the ankle as he states he had his ankle fused in the past. Patient does endorse that he has sensation intact light touch from touching to the foot. Distal pulses are palpable right lower?extremity is warm and perfused. Secondary survey?examination unremarkable For any acute pathology to the bilateral upper?extremities or contralateral lower?extremity.? pt? has no tenderness to palpation to the bilateral upper?extremities joints and no noticeable deformities.? ?Gross sensation intact to bilateral upper extremities and contralateral lower?extremity has no tenderness to the?hip?knee or ankle with no appreciable deformities and is able to plantarflex and dorsiflex ankle sensations intact to light touch distally as well as wiggle toes.? Distal pulses palpable.? Data 02/06/25 10:17 02/06/25 18:04 Xray Ortho: Radiologist's impression: Patient: Jose Guadalupe Claudio Unit #: [id number] : 1980 Age/Sex: 44 / M ADM Date: 02/06/25 Loc: ER Room/Bed: Attending Dr: Ordering Provider/Ordering MD: Abhinav Torres DO Date of Service: 02/06/25 Procedure(s): XR femur RT min 2V* 67115 Accession Number(s): [id number] Report Number: [id number] WS: [id number] Exam: XR femur RT min 2V* 48537 Date/Time of Exam: 02/06/2025 10:15 AM Reason For Exam: FALL Basocervical fracture of the RIGHT hip noted with some coxa vera deformity. The remainder of the femur is intact. Extensive vascular calcifications about the femur. XR/XR femur RT min 2V* 51200 IMPRESSION: 1. Fracture of the proximal femur with coxa vera deformity. The remainder of the femur is normal. Patient: Jose Guadalupe Claudio Unit #: [id number] : 1980 Age/Sex: 44 / M ADM Date: 02/06/25 Loc: ER Room/Bed: Attending Dr: Ordering Provider/Ordering MD: Abhinav Torres DO Date of Service: 02/06/25 Procedure(s): XR hip RT 2-3V wo/w pel* 27375 Accession Number(s): [id number] Report Number: [id number] WS: [email or web address] Exam: XR hip RT 2-3V wo/w pel* 30596 Date/Time of Exam: 02/06/2025 9:52 AM Reason For Exam: Trauma Nondisplaced basocervical fracture of the RIGHT hip noted. There may be extension of the fracture into the intertrochanteric region. No other fractures. The visualized pelvis is intact. Moderate DJD of the joint compartment. Extensive vascular calcifications in the pelvis and about the hips. XR/XR hip RT 2-3V wo/w pel* 10692 IMPRESSION: 1. Basocervical fracture of the RIGHT femur. There may be fracture lines extending into the greater trochanteric region. Patient: Jose Guadalupe Claudio Unit #: [id number] : 1980 Age/Sex: 44 / M ADM Date: 02/06/25 Loc: ER IP Room/Bed: [place] [address]: Chris Arnold MD Ordering Provider/Ordering MD: Abhinav Torres DO Date of Service: 02/06/25 Procedure(s): CT hip RT wo con* 12815 Accession Number(s): [id number] Report Number: [id number] WS: [id number] CT RIGHT HIP, NONCONTRAST HISTORY: Preoperative planning, hip fracture Technique: All [facility] scans at [facility] use at least one of these dose optimization techniques: automated exposure control; mA and/or kV adjustment per patient size (includes targeted exams where dose is matched to clinical indication); or iterative reconstruction. DLP: 380.73 mGy.cm COMPARISON: Femur 02/06/2025, RIGHT hip 02/06/2025 Study is compromised by motion artifact. Patient's extremity is held in external rotation. Fracture extends through the mid femoral neck. Fracture extends inferiorly to the lesser trochanter. No significant displacement. Pubic rami are intact. No acetabular fracture. No displacement of the femoral head from the acetabulum. Extensive atherosclerotic calcifications in the iliac and femoral arteries. Soft tissue edema surrounding the hip. CT/CT hip RT wo con* [id number] IMPRESSION: 1. Acute RIGHT hip fracture. Fracture extends through the femoral neck and continues inferiorly to the the lesser trochanter. No significant displacement. 2. Extensive atherosclerotic calcified plaque in the arteries. A&P Assessment and plan 1. Closed right hip fracture: Plan: Orthopedics consulted Hospitalist admitted patient is primary Imaging reviewed?displaced right hip basicervical/intertrochanteric femur fracture CT reviewed and does demonstrate intertrochanteric extension into the lesser trochanter Labs reviewed Pain control Nonweightbearing right lower extremity May have a diet today N.p.o. at midnight on night Currently takes Plavix for recent stent as well as Eliquis for PE history Plan to add on for surgery Tuesday morning for a right hip short?trochanteric femur nail Ortho will continue to follow MDM: Patient 44-year-old male who sustained a fall and has a displaced right hip basicervical/intertrochanteric femur fracture.? Patient at this point in time has significant medical comorbidities currently had a history of a stent placed in October and currently on Plavix and taking this. He also is on Eliquis for history of PE as well. History of coronary artery disease as well as a CABG has end-stage renal disease and on dialysis as well he has been nonambulatory for the past 2 to 3 years per the patient after he had a stroke. He states he has a fusion on his right lower extremity. He sustained a fall today and has a displaced basicervical femur fracture that extends into the intertrochanteric region. At this point in time I talked about his treatment options in detail with patient as well as his brother who is at bedside in the ICU today. This point time patient last took his Eliquis just last night. He also is currently taking his Plavix as well. At this point in time patient presents complex sounds from the standpoint of patient being on multiple blood thinners as well as a displaced femoral neck fracture and already having an acute stent previously placed within the last 6 months. At this point in time talked about patient's case with the family as well as with the hospitalist provider. This point in time patient's been stopped on his Eliquis and the plan will be to hold this with goals of getting this held for roughly 48 hours. Plan would be for him to get optimized she is getting dialysis today get him optimized for surgery with a plan on Tuesday he is currently going to be on a heparin drip per the primary team. This will now get him over 48 hours from his Eliquis. Fortunately discussing with the hospitalist I do feel as though him having recent stents and Plavix it is recommended that he continues to stay on this if at all possible I feel at this point in time risk-benefit I feel we can perform this procedure as he did break this into the intertrochanteric region which a short trochanteric femur nail would hopefully accommodate for lesser blood loss and be more amendable for continuing his Plavix. At this point time I did discuss with patient as well as the brother that anemia could definitely be an issue postoperatively and he may require transfusions at this point in time he will be on a heparin drip and stop prior to surgery this will allow us to be and we will plan on getting him fixed on Tuesday with a right hip short trochanteric femur nail. We talked about the ins and outs and the risk the benefits complication alternatives with surgical nonsurgical treatment options.? Risk of surgery include but not limited to make it better make it worse, injury to nerves vessels or tendons, blood clot, postop anemia requiring transfusions, persistent pain decreased mobility, hip failure of hardware.? Understanding risk of surgery patient? understands and agrees with current?plan.? All questions have been answered at this time.? Through shared decision-making patient elects to proceed with surgical intervention for a right hip?trochanteric femur nail.? Benefits of treatment we talked at this time would be for for pain control and given that patient is nonambulatory at baseline and wheelchair-bound this may help with some stabilization and transfers as well as him being more comfortable in the wheelchair. Understanding this elects proceed with surgical intervention with plan for Tuesday, all questions answered at this time.? PDMP PDMP Reviewed: Not Reviewed Coding Level of Care Code Acute Code for Chg Fwd Diagnoses Closed right hip fracture S72.001A Time Spent (min) 50
[2025-02-06] MEDS: heparin drip 25,000 UNIT/500 ML PREMIX 23 UNIT IV (20:09)
--- NOTE | 2025-02-06 20:20 | PM.CONSULT ---
Providers/Reason For Consult Consulting Physician/Specialty*: kommana /Nephrology Reason for Consult*: ESRD Attending Physician: Chris Arnold Primary Care Provider: Yaniv Moe MD History of Present Illness History of Present Illness Jose Guadalupe Claudio is a 44 year old male patient is a 44-year-old male with past medical history significant renal disease on dialysis per TTS schedule, hypertension, diabetes, CHF, peripheral neuropathy, history of PE, coronary artery disease status post 7 stents presented after he had a fall out of his wheelchair. Patient did not take his blood show medications in the morning and initial blood pressure in the ER was 246/127 and was placed on Cardene drip. Lab data significant for potassium of 6.2 creatinine was 6.4, sodium was 133. Patient currently getting dialysis. Review of Systems Narrative: negative Medications/Allergies Home Medications ?Medication ?Instructions ?Recorded ?Confirmed ?Last Taken ?Type buspirone 5 mg tablet 5 mg PO TID 06/09/24 02/06/25 02/05/25 History hydralazine 100 mg tablet 100 mg PO TID 06/09/24 02/06/25 02/05/25 History loperamide 2 mg capsule See Rx Instructions .Route .COMPLEX 06/09/24 02/06/25 02/05/25 History mirtazapine 15 mg tablet 7.5 mg PO QPM 06/09/24 02/06/25 02/05/25 History ropinirole 0.5 mg tablet 0.5 mg PO QPM 06/09/24 02/06/25 02/05/25 History sevelamer carbonate 800 mg tablet See Rx Instructions .Route .COMPLEX 06/09/24 02/06/25 02/05/25 History venlafaxine 150 mg 150 mg PO DAILY 06/09/24 02/06/25 02/05/25 History capsule,extended release 24 hr sodium bicarbonate 325 mg tablet 325 mg PO DAILY PRN Stomach ACID 09/19/24 02/06/25 12/03/24 07:00 History vit B,C-folic ac 800 mcg-zinc 12.5 See Rx Instructions .Route .COMPLEX 10/13/24 02/06/25 02/04/25 History mg-selen-D3 2,000 unit-vit E tablet (RenaPlex-D) insulin lispro 100 unit/mL See Rx Instructions .Route .COMPLEX 11/13/24 02/06/25 12/02/24 History subcutaneous pen losartan 50 mg tablet 50 mg PO DAILY 11/13/24 02/06/25 02/05/25 History megestrol 400 mg/10 mL (40 mg/mL) 400 mg PO DAILY 11/13/24 02/06/25 02/05/25 History oral suspension gabapentin 300 mg capsule 300 mg PO BEDTIME 12/03/24 02/06/25 02/05/25 History pantoprazole 40 mg tablet,delayed 40 mg PO BIDWM #84 tabs 12/06/24 02/06/25 02/05/25 Rx release apixaban 5 mg tablet (Eliquis) 5 mg PO BID@0900,2100 #60 tabs 12/07/24 02/06/25 02/05/25 Rx clopidogrel 75 mg tablet 75 mg PO DAILY #90 tabs 12/27/24 02/06/25 02/05/25 Rx furosemide 40 mg tablet (Lasix) 40 mg PO DAILY 12/27/24 02/06/25 02/05/25 History amlodipine 5 mg tablet 5 mg PO QPM 02/06/25 02/06/25 02/05/25 History carvedilol 25 mg tablet 25 mg PO TID 02/06/25 02/06/25 02/05/25 History clonidine HCl 0.3 mg tablet 0.3 mg PO TID 02/06/25 02/06/25 02/05/25 History insulin glargine 100 unit/mL (3 10 unit SUBCUT QPM 02/06/25 02/06/25 Unknown History mL) subcutaneous pen (Lantus Solostar U-100 Insulin) isosorbide mononitrate 30 mg 30 mg PO DAILY 02/06/25 02/06/25 02/05/25 History tablet,extended release 24 hr Allergies Allergy/AdvReac Type Severity Reaction Status Date / Time No Known Allergies Allergy Verified 12/27/24 12:54 Current Medications Generic Name Dose Route Start Last Admin Trade Name Freq PRN Reason Stop Dose Admin Hydrocodone Bitart/Acetaminophen 1 tab 02/06/25 16:34 02/06/25 17:28 Hydrocodone-Acetaminophen 5-325 Mg Tablet PO 1 tab Q4H PRN Administration MODERATE TO SEVERE PAIN Amlodipine Besylate 5 mg 02/06/25 17:00 02/06/25 17:11 Amlodipine 5 Mg Tablet PO 5 mg QPM JAQUELINE Administration Clopidogrel Bisulfate 75 mg 02/06/25 17:25 02/06/25 17:28 Clopidogrel 75 Mg Tablet PO 75 mg DAILY@0900 JAQUELINE Administration Cyclobenzaprine HCl 5 mg 02/06/25 16:21 02/06/25 17:31 Cyclobenzaprine 10 Mg Tablet PO 5 mg TID PRN Administration MUSCLE SPASMS Hydromorphone HCl 0.5 mg 02/06/25 11:30 02/06/25 20:02 Hydromorphone 0.5 Mg/0.5 Ml Inj IVP 0.5 mg Q4H PRN Administration PAIN Nicardipine/Sodium Chloride 20 mg in 200 mls @ 0 mls/hr 02/06/25 11:30 02/06/25 19:57 Cardene IV 15 mg/hr .Q0M JAQUELINE 150 mls/hr Protocol Administration Per Protocol Heparin Sodium/Sodium Chloride 25,000 unit in 500 mls @ 0 mls/hr 02/06/25 16:45 02/06/25 20:09 Heparin Drip IV 14.02 unit/kg/hr CONT JAQUELINE 23 mls/hr Protocol Administration Per Protocol Insulin Glargine 10 unit 02/06/25 17:30 02/06/25 18:03 Insulin Glargine 100 Units/1 Ml SUBCUT 10 unit QPM JAQUELINE Administration Mirtazapine 7.5 mg 02/06/25 17:00 02/06/25 17:11 Mirtazapine 15 Mg Tablet PO 7.5 mg QPM JAQUELINE Administration Pantoprazole Sodium 40 mg 02/06/25 18:00 02/06/25 17:[address] 40 Mg Tablet PO 40 mg BIDWM JAQUELINE Administration Sevelamer Carbonate 800 - 1,600 mg 02/06/25 18:00 02/06/25 18:03 Sevelamer 800 Mg Tablet PO 1,600 mg TIDWM JAQUELINE Administration PFSH Acute PFSH: Medical History (Updated 02/06/25 @ 18:11 by Abhinav Torres DO) Anemia Hypertensive urgency Left ventricular systolic dysfunction (LVSD), NYHA class 3 Chronic hypertension ESRD (end stage renal disease) Diabetic peripheral neuropathy associated with type 2 diabetes mellitus Ingrowing toenail of left foot Hematoma of leg Non-pressure chronic ulcer of 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 Bilateral pes planus Medical non-compliance Closed right trimalleolar fracture Restless leg syndrome Peritonitis CAD (coronary artery disease) Depression End-stage renal disease on peritoneal dialysis Surgical History Hx of CABG Social History Smoking and tobacco/nicotine status: current every day tobacco/nicotine user (Cannabis/ Quit cigarettes 5 years ago) Alcohol intake: never Substance/Drug Use: current Other substance/drug use details: Medical marijuana Vitals/I&O/Wt Last Vital Signs Temp 98.6 F 02/06/25 17:30 Pulse 100 02/06/25 17:30 Resp 16 02/06/25 17:30 BP 170/93 02/06/25 17:30 Pulse Ox 91 02/06/25 17:30 O2 Del Method Room Air 02/06/25 17:30 FiO2 21 02/06/25 12:03 02/06/25 02/06/25 02/06/25 06:59 14:59 22:59 Intake Total 412.25 / 412.25 587.750 / 1000.000 Balance 412.25 / 412.25 587.750 / 1000.000 Weight last 48 hrs Weight 82 kg Weight 71.668 kg Physical Exam Narrative: awake , alert , no distress No JVD s1s2 RRR Lungs clear per report Abd soft , non tender Ext no edema Data 02/07/25 02:17 02/07/25 02:17 A&P Assessment and plan 1. ESRD (end stage renal disease) on dialysis: Plan: 1. End-stage renal disease: On TTS schedule, now presented with hypertensive urgency and hyperkalemia plan for dialysis today and will repeat dialysis again in the morning 2. Hypertensive urgency, resumed on home meds and reevaluate after HD 3. Hyperkalemia: HD as above on low potassium diet 4. Hip fracture, management per primary team , likely conservative management due to multiple comorbidities Patient evaluated using audiovisual cart. Time spent 40 minutes. PDMP PDMP Reviewed: Not Reviewed Consult Attestations Medical Necessity Statement: per demetrio Coding Level of Care Code Acute Code for Chg Fwd Diagnoses ESRD (end stage renal disease) on dialysis N18.6; Z99.2
[2025-02-07] VITALS (47 sets, daily range): BP systolic 121–170; BP diastolic 62–97; PULSE 60–98; RESP 0–31; TEMP 36.1–37; O2SAT 87–96
[2025-02-07] MEDS: HYDROmorphone 0.5 MG/0.5 ML INJ IVP ×5 (00:20→19:59)
[2025-02-07] MEDS: nicardipine 20 MG/200 ML PREMIX 150 MG IV ×4 (00:28→04:48)
[2025-02-07 02:29] LABS: Hematocrit 41.4 % (37-53); Hemoglobin 13.30 g/dL (11.27-16.99); Mean Corpuscular HGB Conc 32.1 g/dL (30-55); Mean Corpuscular Hemoglobin 29.1 pg (27-33); Mean Corpuscular Volume 90.6 fl (82-101); Nucleated Red Blood Cells % 0 %; Platelet Count 182 10^3/cmm (157-399); Red Blood Count 4.57 10^6/uL (3.85-5.65); White Blood Count 11.36 10^3/uL (3.29-11.43)
[2025-02-07 02:46] LABS: Anion Gap 23.7 (5-19); Blood Urea Nitrogen 25 mg/dL (6-20); Calcium 9.8 mg/dL (8.5-10.5); Carbon Dioxide 23 mmol/L (22-29); Chloride 94 mmol/L (98-107); Creatinine Clr Calc Pharmacy 24.6925; Glucose 220 mg/dL (65-115); Osmolality Calculated 293 mOsm/kg (285-295); Potassium 4.7 mmol/L (3.5-5.1); Sodium 136 mmol/L (136-145)
[2025-02-07 02:50] LABS: Partial Thromboplastin Time 80.6 SECONDS (23.9-36.7)
[2025-02-07] MEDS: HYDROcodone-acetaminophen 5-325 mg Tablet 1 TAB PO ×4 (03:27→21:36)
[2025-02-07] MEDS: venlafaxine ER (24HR) 150 mg Capsule PO (04:33)
[2025-02-07] MEDS: nicardipine 20 MG/200 ML PREMIX 125 MG IV (06:13)
[2025-02-07] MEDS: nicardipine 20 MG/200 ML PREMIX 100 MG IV ×2 (08:08→10:13)
--- NOTE | 2025-02-07 08:52 | P.PN_ITS ---
Subjective 2 Subjective: Overall slightly better but is still bothered by pain in the right hip still some cramping unrelieved by pain medication so far. Vitals/I&O/Wt Last Vital Signs Temp 99.4 F 02/06/25 21:00 Pulse 90 02/07/25 06:57 Resp 19 H 02/07/25 04:00 BP 165/87 02/07/25 04:33 Pulse Ox 92 02/07/25 04:00 O2 Del Method Room Air 02/07/25 04:00 FiO2 21 02/06/25 12:03 02/06/25 02/07/25 02/07/25 22:59 06:59 14:59 Intake Total 1487.750 / 2541.519 4878.017 / 3064.017 188.333 / 188.333 Output Total 3500 / 3500 Balance -2012.250 / -9387.757 8810.017 / -435.983 188.333 / 188.333 Weight last 48 hrs Weight 82 kg Weight 80.1 kg Weight 82 kg Weight 71.668 kg Physical Exam 2 Narrative: Antalgic positioning of the right hip with partial flexion. Const: COMMON NORMALS: patient oriented x3 and alert GENERAL APPEARANCE: c ooperative ORIENTATION/CONSCIOUSNESS: Yes awake HENMT: COMMON NORMALS: oropharynx normal Neck/C-Spine: COMMON NORMALS: no JVD Chest: OTHER: HD catheter in the right chest. Resp: COMMON NORMALS: normal respiratory effort and clear to auscultation bilaterally AUSCULTATION: clear to auscultation bilaterally Cardio: COMMON NORMALS: no JVD, regular rhythm, S1 normal heart sound present, S2 normal heart sound present and No murmurs present (Cardio) RHYTHM: regular rhythm HEART SOUNDS: S1 normal heart sound present and S2 normal heart sound present GI: COMMON NORMALS: Normal to inspection, nondistended, normoactive bowel sounds present, Soft to palpation and non-tender PALPATION: Yes Soft to palpation Extremity: COMMON NORMALS: no joint enlargement and no pedal edema N ARRATIVE EXTREMITY EXAM: RLE appears perfused. No edema. OTHER: Chronically fused right ankle. Neuro: COMMON NORMALS: patient oriented x3 and moves all extremities S ENSORIUM/ORIENTATION: Yes alert Skin: COMMON NORMALS: no rashes or lesions noted GENERAL SKIN EXAM: no rashes or lesions noted Data 02/07/25 02:17 02/07/25 02:17 A&P Assessment and plan 1. Hypertensive urgency: 2. Closed right hip fracture: Plan: Hypertensive urgency: Reviewed overnight blood pressures and nicardipine rate. Blood pressure gradual improving, this morning 150/80, however, continues on 10 of nicardipine. Home medications have been resumed. Nephrology plans were for dialysis last night and additional dialysis today. 3500 mL removed yesterday evening. Will give additional dose of amlodipine. Continue to wean down and off nicardipine drip requiring ICU admission. - Maintain blood pressure without further rapid decrease at this time. - Resume home antihypertensives: amlodipine, carvedilol, clonidine, hydralazine, isosorbide mononitrate (Imdur), losartan. Wean off nicardipine drip. Requesting current target blood pressures 165/95. Gradually continue to lower beyond that over next 24-48 hours. Monitor for risk of hypotension. Hyperkalemia : After temporizing treatments received dialysis. Potassium today on review is 4.7. End-stage renal disease on hemodialysis : Reports adherence to full dialysis sessions; nephrology consulted in ED. - Continue hemodialysis. - Nephrology consultation obtained in ED; proceed per nephrology recommendations. Anticoagulation management with recent drug-eluting stents : History of pulmonary emboli on apixaban (last dose last night) and recent coronary stents with clopidogrel (last dose 02/05 evening). Surgical planning requires interruption of apixaban; management of clopidogrel to be coordinated with cardiology given recent stenting. - Hold apixaban (Eliquis) for anticipated surgery. - Bridge with heparin drip while off apixaban (given history of pulmonary emboli). - Discussed clopidogrel (Plavix) management with cardiology and orthopedics; continue Plavix - Monitor with risk of bleeding. Severe acute pain with muscle spasms : Significant right hip pain with intermittent severe spasms; IV opioids provided partial relief. He is stable and in pain. Still wearing street close. Prescription nursing may require additional pain medication to help him out of the close, but are aware to hold in case of any respiratory depression or depression of mental status with risk of encephalopathy, respiratory failure with reduced medication clearance with underlying ESRD. - Continue intravenous hydromorphone (Dilaudid) as needed for severe breakthrough pain. - Hydrocodone as needed for moderate pain. - Consider muscle relaxer as needed for spasms with caution due to end-stage renal disease (monitor for sedation). Type 2 diabetes mellitus : On insulin glargine and sliding scale insulin; diet addressed. - Continue insulin glargine (Lantus). - Add sliding scale insulin. - Consistent carbohydrate diet. - Monitor POC glucose. Congestive heart failure/cardiomyopathy : Prior low ejection fraction reported; monitor volume status. - Monitor for signs of fluid overload; currently without decompensation. Cardiac diet. - Continue hemodialysis. Continue Lasix. Continue cardiac medications as above including ARB. Chronic diarrhea : Reports recurrent/chronic diarrhea; uses loperamide as needed. - Continue loperamide (Imodium) as needed. Monitor for risk of constipation with opioids. Discussed with nursing staff. PDMP PDMP Reviewed: Not Reviewed Attestations 2 Medical Necessity Statement*: Continue admission for optimization of blood pressure control with hypertensive urgency, requiring nicardipine drip, weaning off nicardipine, additional dialysis, bridging anticoagulation with heparin holding Eliquis, continue with platelets, pending surgical repair of right hip fracture and gentleman with multiple comorbidities. Coding Level of Care Code Critical Care >/= 30 minutes Critical care time (in minutes): 32 The high probability of a clinically significant, sudden or life threatening deterioration, as referenced in this documentation, required my full and direct attention, intervention and personal management. The critical care time shown is in addition to time spent performing any reported separately billable procedures and includes the following: [x] Data and vital sign review and interpretation [x ] Patient assessment, examination and intervention [x] Medication orders and management [x] Patient/Family updates as able [x] Care Coordination and Documentation. Diagnoses Hypertensive urgency I16.0 Closed right hip fracture S72.001A
[2025-02-07 09:27] LABS: Partial Thromboplastin Time 59.1 SECONDS (23.9-36.7)
--- NOTE | 2025-02-07 15:41 | P.PN_ITS ---
Subjective 2 Subjective: Patient seen and examined today. Received dialysis yesterday. Patient is ready to proceed with surgical intervention tomorrow. Vitals/I&O/Wt Last Vital Signs Temp 96.9 F L 02/07/25 06:30 Pulse 60 02/07/25 14:00 Resp 22 H 02/07/25 05:30 BP 139/73 02/07/25 12:30 Pulse Ox 93 02/07/25 12:30 O2 Del Method Room Air 02/07/25 04:00 FiO2 21 02/06/25 12:03 02/07/25 02/07/25 02/07/25 06:59 14:59 22:59 Intake Total 1164.017 / 3064.017 1007.500 / 1007.500 Balance 1164.017 / -234.522 1277.500 / 1007.500 Weight last 48 hrs Weight 180 lb 12.465 oz Weight 176 lb 9.444 oz Weight 180 lb 12.465 oz Weight 158 lb Physical Exam 2 Narrative: Patient is able to to follow commands and perform a standard?examination. Patient in significant pain and discomfort unable to tolerate much of exam to the lower extremity on the right side. 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 Patient does endorse that he has sensation intact light touch from touching to the foot. Distal pulses are palpable right lower?extremity is warm and perfused. ? Data 02/07/25 02:17 02/07/25 02:17 A&P Assessment and plan 1. Closed right hip fracture: Plan: Orthopedics consulted Hospitalist admitted patient is primary Imaging reviewed?displaced right hip basicervical/intertrochanteric femur fracture CT reviewed and does demonstrate intertrochanteric extension into the lesser trochanter Labs reviewed Pain control Nonweightbearing right lower extremity May have a diet today N.p.o. at midnight Currently takes Plavix for recent stent as well as Eliquis for PE history Plan to OR tomorrow for right hip trochanteric femur nail Ortho will continue to follow Patient understands and agrees with current plan. All questions answered. PDMP PDMP Reviewed: Not Reviewed Attestations 2 Medical Necessity Statement*: Right hip fracture requiring surgical intervention tomorrow, per primary Coding Level of Care Code Acute Code for Chg Fwd Diagnoses Closed right hip fracture S72.001A Time Spent (min) 10
[2025-02-07] MEDS: insulin glargine 100 units/1 mL 10 UNIT SUBCUT (17:39)
[2025-02-07] MEDS: heparin drip 25,000 UNIT/500 ML PREMIX 21 UNIT IV (18:53)
[2025-02-08] VITALS (36 sets, daily range): BP systolic 112–193; BP diastolic 72–115; PULSE 66–88; RESP 16–26; TEMP 36.5–37.1; O2SAT 90–97
[2025-02-08] MEDS: HYDROmorphone 0.5 MG/0.5 ML INJ IVP ×4 (00:22→20:09)
[2025-02-08] MEDS: HYDROcodone-acetaminophen 5-325 mg Tablet 1 TAB PO ×4 (04:03→19:26)
[2025-02-08] MEDS: venlafaxine ER (24HR) 150 mg Capsule PO (04:04)
[2025-02-08 04:09] LABS: Hematocrit 34.5 % (37-53); Hemoglobin 11.00 g/dL (11.27-16.99); Mean Corpuscular HGB Conc 31.9 g/dL (30-55); Mean Corpuscular Hemoglobin 29.6 pg (27-33); Mean Corpuscular Volume 93.0 fl (82-101); Nucleated Red Blood Cells % 0 %; Platelet Count 145 10^3/cmm (157-399); Red Blood Count 3.71 10^6/uL (3.85-5.65); White Blood Count 10.67 10^3/uL (3.29-11.43)
[2025-02-08 04:22] LABS: Partial Thromboplastin Time 61.2 SECONDS (23.9-36.7)
[2025-02-08 04:30] LABS: Anion Gap 23.8 (5-19); Blood Urea Nitrogen 37 mg/dL (6-20); Calcium 9.1 mg/dL (8.5-10.5); Carbon Dioxide 22 mmol/L (22-29); Chloride 96 mmol/L (98-107); Creatinine Clr Calc Pharmacy 18.0536; Glucose 91 mg/dL (65-115); Osmolality Calculated 292 mOsm/kg (285-295); Potassium 4.8 mmol/L (3.5-5.1); Sodium 137 mmol/L (136-145)
--- NOTE | 2025-02-08 10:46 | ANES.PREANE2 ---
Pre-Anesthetic Assessment Height/Weight: Height 1.83 m Weight 79.9 kg Temp Pulse Resp BP Pulse Ox O2 Del Method O2 Flow Rate 98.8 F 69 16 112/89 95 Nasal Cannula 2 02/08/25 08:00 02/08/25 08:00 02/08/25 08:00 02/08/25 08:00 02/08/25 08:00 02/08/25 08:00 02/08/25 08:00 FiO2 21 02/06/25 12:03 Operation Date: 02/08/25 12:00 Proposed Procedures p Trochanteric Femoral Nail(Right) - Aram [place], Familial anesthetic complications: none Was Beta Ivette taken within 24 hours: Yes Was Clonidine taken within 24 hours: N/A Last intake: Intake Last Liquid Date 02/08/25 Last Liquid Time 08:50 Last Solid Date 02/07/25 Social Alcohol and No alcohol Exam alert, oriented x 3, clear to auscultation bilaterally and regular rate & rhythm Airway Comments: Comments: fullb mckeon CV/HEM Coronary Artery Disease (CABG), Congestive Heart Failure, Hypertension and Myocardial Infarction plavix < 1 week ago 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 There is total occlusion coronary artery disease with three vessel disease. 2. Four coronary grafts visualized: two grafts patent, and two grafts occluded. 3. Patient has prior CABG. 4. 1st Diagonal was treated with a Balloon, Drug Eluting Stent, and Balloon. Chronic Renal Failure GI Gastroesophageal Reflux Disease Anesthetic Plan ASA status: 4 Anesthesia: General Risk of > 500 ml blood loss (7ml/kg in children): No Other Pertinent Information patient counseled on higher risk of perioperative MACE d/t baseline conditions Medications/Allergies Home Medications ?Medication ?Instructions ?Recorded ?Confirmed ?Last Taken ?Type buspirone 5 mg tablet 5 mg PO TID 06/09/24 02/06/25 02/05/25 History hydralazine 100 mg tablet 100 mg PO TID 06/09/24 02/06/25 02/05/25 History loperamide 2 mg capsule See Rx Instructions .Route .COMPLEX 06/09/24 02/06/25 02/05/25 History mirtazapine 15 mg tablet 7.5 mg PO QPM 06/09/24 02/06/25 02/05/25 History ropinirole 0.5 mg tablet 0.5 mg PO QPM 06/09/24 02/06/25 02/05/25 History sevelamer carbonate 800 mg tablet See Rx Instructions .Route .COMPLEX 06/09/24 02/06/25 02/05/25 History venlafaxine 150 mg 150 mg PO DAILY 06/09/24 02/06/25 02/05/25 History capsule,extended release 24 hr sodium bicarbonate 325 mg tablet 325 mg PO DAILY PRN Stomach ACID 09/19/24 02/06/25 12/03/24 07:00 History vit B,C-folic ac 800 mcg-zinc 12.5 See Rx Instructions .Route .COMPLEX 10/13/24 02/06/25 02/04/25 History mg-selen-D3 2,000 unit-vit E tablet (RenaPlex-D) insulin lispro 100 unit/mL See Rx Instructions .Route .COMPLEX 11/13/24 02/06/25 12/02/24 History subcutaneous pen losartan 50 mg tablet 50 mg PO DAILY 11/13/24 02/06/25 02/05/25 History megestrol 400 mg/10 mL (40 mg/mL) 400 mg PO DAILY 11/13/24 02/06/25 02/05/25 History oral suspension gabapentin 300 mg capsule 300 mg PO BEDTIME 12/03/24 02/06/25 02/05/25 History pantoprazole 40 mg tablet,delayed 40 mg PO BIDWM #84 tabs 12/06/24 02/06/25 02/05/25 Rx release apixaban 5 mg tablet (Eliquis) 5 mg PO BID@0900,2100 #60 tabs 12/07/24 02/06/25 02/05/25 Rx clopidogrel 75 mg tablet 75 mg PO DAILY #90 tabs 12/27/24 02/06/25 02/05/25 Rx furosemide 40 mg tablet (Lasix) 40 mg PO DAILY 12/27/24 02/06/25 02/05/25 History amlodipine 5 mg tablet 5 mg PO QPM 02/06/25 02/06/25 02/05/25 History carvedilol 25 mg tablet 25 mg PO TID 02/06/25 02/06/25 02/05/25 History clonidine HCl 0.3 mg tablet 0.3 mg PO TID 02/06/25 02/06/25 02/05/25 History insulin glargine 100 unit/mL (3 10 unit SUBCUT QPM 02/06/25 02/06/25 Unknown History mL) subcutaneous pen (Lantus Solostar U-100 Insulin) isosorbide mononitrate 30 mg 30 mg PO DAILY 02/06/25 02/06/25 02/05/25 History tablet,extended release 24 hr Allergies Allergy/AdvReac Type Severity Reaction Status Date / Time No Known Allergies Allergy Verified 12/27/24 12:54 Current Medications Generic Name Dose Route Start Last Admin Trade Name Freq PRN Reason Stop Dose Admin Hydrocodone Bitart/Acetaminophen 1 tab 02/06/25 16:34 02/08/25 08:42 Hydrocodone-Acetaminophen 5-325 Mg Tablet PO 1 tab Q4H PRN Administration MODERATE TO SEVERE PAIN Amlodipine Besylate 5 mg 02/06/25 17:00 02/07/25 17:35 Amlodipine 5 Mg Tablet PO 5 mg QPM JAQUELINE Administration Buspirone HCl 5 mg 02/06/25 21:00 02/08/25 04:04 Buspirone 5 Mg Tablet PO 5 mg TID JAQUELINE Administration Carvedilol 25 mg 02/06/25 21:00 02/08/25 04:04 Carvedilol 25 Mg Tablet PO 25 mg TID JAQUELINE Administration Clonidine HCl 0.3 mg 02/06/25 21:00 02/08/25 04:04 Clonidine 0.1 Mg Tablet PO 0.3 mg TID JAQUELINE Administration Clopidogrel Bisulfate 75 mg 02/06/25 17:25 02/08/25 08:39 Clopidogrel 75 Mg Tablet PO 75 mg DAILY@0900 JAQUELINE Administration Cyclobenzaprine HCl 5 mg 02/06/25 16:21 02/08/25 08:39 Cyclobenzaprine 10 Mg Tablet PO 5 mg TID PRN Administration MUSCLE SPASMS Furosemide 40 mg 02/07/25 05:00 02/08/25 04:04 Furosemide 40 Mg Tablet PO 40 mg DAILY JAQUELINE Administration Gabapentin 300 mg 02/06/25 21:00 02/07/25 20:07 Gabapentin 300 Mg Capsule PO 300 mg BEDTIME JAQUELINE Administration Hydralazine HCl 100 mg 02/06/25 21:00 02/08/25 04:03 Hydralazine 50 Mg Tablet PO 100 mg TID JAQUELINE Administration Hydromorphone HCl 0.5 mg 02/06/25 11:30 02/08/25 04:50 Hydromorphone 0.5 Mg/0.5 Ml Inj IVP 0.5 mg Q4H PRN Administration PAIN Nicardipine/Sodium Chloride 20 mg in 200 mls @ 0 mls/hr 02/06/25 11:30 02/07/25 12:27 Cardene IV 0 mg/hr .Q0M JAQUELINE 0 mls/hr Protocol Titration Per Protocol Heparin Sodium/Sodium Chloride 25,000 unit in 500 mls @ 0 mls/hr 02/06/25 16:45 02/08/25 06:52 Heparin Drip IV 0 unit/kg/hr On Hold: 02/08/25 07:57 CONT JAQUELINE 0 mls/hr Protocol Titration Per Protocol Insulin Glargine 10 unit 02/06/25 17:30 02/07/25 17:39 Insulin Glargine 100 Units/1 Ml SUBCUT 10 unit QPM JAQUELINE Administration Insulin Human Lispro 0 unit 02/07/25 12:00 02/08/25 08:44 Insulin Lispro 100 Unit/1 Ml SUBCUT Not Given WM&BEDTIME JAQUELINE Protocol Isosorbide Mononitrate 30 mg 02/07/25 05:00 02/08/25 04:04 Isosorbide Mononitrate Er 30 Mg Tablet PO 30 mg DAILY JAQUELINE Administration Losartan Potassium 50 mg 02/07/25 05:00 02/08/25 04:04 Losartan 50 Mg Tablet PO 50 mg DAILY JAQUELINE Administration Mirtazapine 7.5 mg 02/06/25 17:00 02/07/25 17:36 Mirtazapine 15 Mg Tablet PO 7.5 mg QPM JAQUELINE Administration Pantoprazole Sodium 40 mg 02/06/25 18:00 02/08/25 08:[address] 40 Mg Tablet PO 40 mg BIDWM JAQUELINE Administration Ropinirole HCl 0.5 mg 02/07/25 17:00 02/07/25 17:38 Ropinirole 0.25 Mg Tablet PO 0.5 mg QPM JAQUELINE Administration Sevelamer Carbonate 800 - 1,600 mg 02/06/25 18:00 02/08/25 08:43 Sevelamer 800 Mg Tablet PO Not Given TIDWM JAQUELINE Venlafaxine HCl 150 mg 02/07/25 05:00 02/08/25 04:04 Venlafaxine Er (24hr) 150 Mg Capsule PO 150 mg DAILY JAQUELINE Administration PFSH Anesthesia Medical History (Updated 02/06/25 @ 18:11 by Abhinav Torres DO) Anemia Hypertensive urgency Left ventricular systolic dysfunction (LVSD), NYHA class 3 Chronic hypertension ESRD (end stage renal disease) Diabetic peripheral neuropathy associated with type 2 diabetes mellitus Ingrowing toenail of left foot Hematoma of leg Non-pressure chronic ulcer of 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 Bilateral pes planus Medical non-compliance Closed right trimalleolar fracture Restless leg syndrome Peritonitis CAD (coronary artery disease) Depression End-stage renal disease on peritoneal dialysis Surgical History Hx of CABG Social History Smoking and tobacco/nicotine status: current every day tobacco/nicotine user (Cannabis/ Quit cigarettes 5 years ago) Alcohol intake: never Substance/Drug Use: current Other substance/drug use details: Medical marijuana Data Anesthesia 02/08/25 04:00 02/08/25 04:00 Short CBC 02/07/25 02/08/25 Range/Units 02:17 04:00 WBC 11.36 10.67 (3.29-11.43) 10^3/uL Hgb 13.30 11.00 L (11.27-16.99) g/dL Hct 41.4 34.5 L (37-53) % MCV 90.6 93.0 (82-101) fl Plt Count 182 145 L (157-399) 10^3/cmm Neut % (Auto) 82.3 76.9 % Neut # (Auto) 9.34 H 8.21 H (1.8-7.7) 10^3/uL BMP 02/06/25 02/06/25 02/07/25 10:17 18:04 02:17 Sodium 133 L 136 Potassium 6.2 H 4.4 4.7 Chloride 91 L 94 L Carbon Dioxide 23 23 BUN 54 H 25 H Creatinine 6.4 H* 4.2 H Glucose 181 H 220 H Calcium 9.9 9.8 02/08/25 04:00 Sodium 137 Potassium 4.8 Chloride 96 L Carbon Dioxide 22 BUN 37 H Creatinine 5.8 H* Glucose 91 Calcium 9.1 Liver Function 02/06/25 Range/Units 10:17 Total Bilirubin 0.3 (0.15-1.2) mg/dL AST 18 (0-40) U/L ALT 10 (0-41) U/L Alkaline Phosphatase 75 (40-130) U/L Albumin 4.1 (3.5-5.2) g/dL Coags 02/06/25 02/07/25 02/07/25 18:04 02:17 08:56 APTT 36.8 H 80.6 H D 59.1 H 02/08/25 04:00 APTT 61.2 H Cardiac Studies: Echocardiogram 11/12/24 Echocardiogram Limited Views 10/14/24 Sestamibi Stress Test (Cardiology) 10/24/23
--- NOTE | 2025-02-08 11:24 | W.PM.OPSUD ---
Surgery/Procedure H&P Update DATE OF PROCEDURE: February 08, 2025 DATE H&P PERFORMED: 02/06/25 H&P UPDATE INFORMATION: I have reviewed H&P completed within last 30 days, I have examined patient prior to procedure and No changes to prior documentation CHANGES TO PREVIOUS DOCUMENTATION: Patient's been medically optimized per the primary team has been off Eliquis, has been n.p.o. since midnight we did have to continue with his Plavix which she understands the risks of possible intraoperative/postoperative bleeding and need for transfusions, he was on a heparin drip which was discontinued this morning and optimized for surgical intervention. Once again detailed his ins and outs procedure risk benefits complication alternative surgical nonsurgical treatment options with his at bedside and through shared decision making they elect to proceed with surgical invention for right hip trochanteric femur nail. All questions answered. Consent was reviewed and signed with patient in the ICU today. PREOP DIAGNOSIS: Right hip basicervical intertrochanteric femur fracture PRIMARY INDICATION FOR PROCEDURE: Right hip basicervical intertrochanteric femur fracture PLANNED PROCEDURE: Operation Date: 02/08/25 12:00 Proposed Procedures p Trochanteric Femoral Nail(Right) - Aram Liao DO
--- NOTE | 2025-02-08 11:45 | PC.NURSE ---
To OR via bed with COMMERCIAL ART INSTRUCTOR and RN at bedside.
[2025-02-08] MEDS: ceFAZolin 2,000 mg SDV 2000 MG IVP (12:25)
--- NOTE | 2025-02-08 13:19 | XR_ITS ---
WS: [id number] Exam: XR hip RT 2-3V wo/w pel* [id number] Date/Time of Exam: 02/08/2025 1:19 PM Reason For Exam: OR PICS Intraoperative AP and lateral C-arm images of the RIGHT hip are submitted. There is internal fixation of an intertrochanteric fracture of the RIGHT hip with a femoral neck screw and intramedullary deandra. Alignment is anatomic for healing.
--- NOTE | 2025-02-08 13:43 | W.PM.BPON ---
Date of Procedure: 02/08/2025 Surgeon: Aram Liao DO Insurance Billing Specialist(s): None Procedure(s) performed: Right hip trochanteric femur nail Findings of the procedure(s): Patient underwent procedure as per without issues or complications taken back to ICU in stable condition Estimated blood loss: 100 mL Specimen(s) removed: None Post-operative diagnosis: Right hip displaced basicervical/intertrochanteric femur fracture
--- NOTE | 2025-02-08 13:44 | P.OP_ITS ---
Operative Report Date of procedure: February 08, 2025 Surgeon: Aram Liao DO Procedure: Post-op diagnosis: right displaced intertrochanteric femur fracture Procedure done: Right intertrochanteric femur fracture ORIF with trochanteric femur?nail Implants: [employer] gamma?nail?short 10 mm x 170 mm x 125 degree Lag screw 10.5 mm x [110 ]?mm Distal locking screw 5 mm x [37.5 ] mm Surgeon: Aram Liao DO Estimated blood loss: [100 ]mL IV fluids: See anesthesia record Urine output: See anesthesia record Complications: See operative report Findings: See operative report narrative Condition: stable Disposition: Floor Brief History: Patient sustained a fall and was found to have a right intertrochanteric hip fx.?Pt has?been unable to bear weight, right hip/lower extremity shortened and externally rotated.? At this point time Pt?was admitted by the hospitalist team and orthopedics was consulted.? Refer to consult note for detailed HPI.? We talked about treatment options as far as nonoperative and operative intervention. Recommend Right hip?trochanteric femur?nail.? At this point time patient would like to pursue surgical intervention for benefits of pain control and earlier mobilization.?? Patient understands the ins and outs of procedure, the risk benefits complication alternatives of surgical nonsurgical treatment options.? Understanding risk of surgery pt?agrees to proceed with surgical intervention all questions answered.? Consent obtained. Procedure: Patient seen evaluated in the ICU area.? Consent was obtained.? Correct extremity was then marked.? Once cleared by anesthesia and the hospitalist team patient was taken back to the operative suite.? Patient underwent anesthesia per the anesthesia department.? Once appropriately anesthetized patient was placed on a fracture [place] table.? Patient was appropriately secured to the bed.? All bony prominences were well-padded.? At this point time patient received appropriate preoperative antibiotics.? Final timeout was performed.? Prior to beginning surgery a standard closed reduction maneuver was placed on the [place] table and large C-arm was brought in.? After performing a closed reduction maneuver there was able to achieve satisfactory reduction of right intertrochanteric femur fracture.? Fracture site did not extend into the subtrochanteric region as result plan was for a short?nail.?? This point time the right lower extremity was then prepped and draped in standard orthopedic fashion. A standard longitudinal incision was made just proximal to the greater?trochanter roughly 4 cm in length sharp scalpel vision was made through skin and subcutaneous tissue.? I then utilized a blunt Giraldo to split? fascia and mobilized directly down to the greater?trochanter.? I then inserted my starting guidewire which was placed appropriate starting position the tip of the greater?trochanter.? This was advanced in AP and lateral films to be in center center position and advanced to the level lesser?trochanter.? This was confirmed to be in center center position on AP and lateral imaging.? Once this was done I then introduced my opening reamer which was then subsequently guide pin removed.? I selected a 10 mm x 170 mm x 125 degree. At this point time the?nail?was then loaded onto the [employer] gamma?trochanteric?nail?guide.? This was placed within the canal and confirmed with XR and the setscrew was then gently placed not locked.? The?nail?was then impacted to appropriate depth .? At this point time I then inserted my lag screw guide and subsequently made a small incision through skin and subcutaneous tissue splitting the IT band longitudin ally and the guide was placed directly onto bone.? Next I then subsequently placed the guidewire in center center position in the head with an appropriate tip to apex distance this was confirmed with multiple orthogonal images.? Once I was satisfied with my planned lag screw placement I then measured which was? [110 ]?mm.? I then set my cannulated drill and subsequently reamed this into the head at appropriate depth.? I then had my rep open the 10.5 mm x [110 ] mm lag screw which was then opened on the back table and subsequently screwed into place over my cannulated drill guide.? This was placed with excellent tip to apex distance.? Next I then utilized the compressing device and subsequently compressed my fracture after I let off traction.? This had excellent fracture compression and opposition and closing down to my fracture line.? Next I then locked the?nail?by locking my setscrew.? This point time the guidewire as well as the sleeve was then removed.? Next I plan for statically locking the?nail?distally.? This triple sleeve was then placed a small stab incision was made blunt dissection directly down to bone and the guide sleeve was placed and locked directly onto the bone.? I then inserted the drill bit and subsequently drilled bicortically measured appropriate length screw and then placed a [37.5 ]?mm distal interlocking screw and had excellent fixation was appropriate kenny monroy.? This point time is completed my construct I remove the outer jig and took final images of AP and lateral of the right intertrochanteric femur fracture which showed stable reduction and stable fixation.? Incision was then thoroughly irrigated.? Hemostasis was maintained with electrocautery.? I then once again thoroughly irrigated the incisions and then subsequently closed in layered fashion of 0 Vicryl 2-0 Vicryl and dominique.? Silverlon dressings applied.? Patient was then awakened from anesthesia transported onto the hospital bed and taken to PACU in stable condition.? Patient tolerated procedure without complications. Disposition: Patient taken to back to ICU in stable condition.? Postoperatively,? Patient to receive appropriate discharge instructions as well as pain medication, resume DVT prophylaxis postoperatively.? Patient?will be allowed weightbearing as tolerated right lower extremity.? Will receive appropriate postoperative antibiotics, PT/OT.? Patient to follow-up in the orthopedic office in 2 weeks.? Patients family understands and agrees with current plan.? All questions answered.
--- NOTE | 2025-02-08 14:22 | ANE.PACU2 ---
Inpatient post-anesthesia follow up: Airway intact: Yes Vital signs: Temperature 98.8 F Pulse Rate 74 Respiratory Rate 16 Blood Pressure 168/111 Pulse Oximetry 96 Oxygen Delivery Me thod [ Nasal Cannula Current Rate & Del marshall] Oxygen Delivery Me thod Nasal Cannula Oxygen Flow Rate [ Current Rate 2 & Delivery] Oxygen Flow Rate 5 Fraction of Inspir ed Oxygen 21 Hydration adequate: Yes Nausea and vomiting: No Pain level: 1 Mental status: Baseline
--- NOTE | 2025-02-08 16:46 | P.PN_ITS ---
Subjective 2 Subjective: gettting hd Medications: Reviewed: Yes Vitals/I&O/Wt Last Vital Signs Temp 98.2 F 02/08/25 16:00 Pulse 81 02/08/25 16:00 Resp 26 H 02/08/25 16:00 BP 150/88 02/08/25 16:00 Pulse Ox 95 02/08/25 16:00 O2 Del Method Nasal Cannula 02/08/25 16:00 O2 Flow Rate 2 02/08/25 16:00 FiO2 21 02/06/25 12:03 02/08/25 02/08/25 02/08/25 06:59 14:59 22:59 Intake Total 351.65 / 1854.100 300 / 300 500 / 800 Output Total 100 / 100 2971 / 3071 Balance 351.65 / 1854.100 200 / 200 -2471 / -2271 Weight last 48 hrs Weight 78 kg Weight 79.9 kg Weight 82 kg Weight 80.1 kg Physical Exam 2 Narrative: awake , alert , no distress No JVD s1s2 RRR Lungs clear per report Abd soft , non tender Ext no edema Data 02/08/25 04:00 02/08/25 04:00 A&P Assessment and plan 1. ESRD (end stage renal disease) on dialysis: Plan: 1. End-stage renal disease: On TTS schedule, now presented with hypertensive urgency and hyperkalemia HD today 2. Hypertensive urgency, resumed on home meds and reevaluate after HD 3. Hyperkalemia: HD as above on low potassium diet 4. Hip fracture, management per primary team , likely conservative management due to multiple comorbidities Patient evaluated using audiovisual cart. Time spent 40 minutes. PDMP PDMP Reviewed: Not Reviewed Attestations 2 Medical Necessity Statement*: per [facility] Coding Level of Care Code Acute Code for Chg Fwd Diagnoses ESRD (end stage renal disease) on dialysis N18.6; Z99.2
--- NOTE | 2025-02-08 17:33 | P.PN_ITS ---
Subjective 2 Subjective: This morning he is doing all right, pain is still exacerbated by cramping, muscle laxer is helping. Otherwise no shortness of breath, chest pain or pressure, or other complaints. Undergoing dialysis, n.p.o. for surgical procedure at noon. Vitals/I&O/Wt Last Vital Signs Temp 98.2 F 02/08/25 16:00 Pulse 81 02/08/25 16:00 Resp 26 H 02/08/25 16:00 BP 150/88 02/08/25 16:00 Pulse Ox 95 02/08/25 16:00 O2 Del Method Nasal Cannula 02/08/25 16:00 O2 Flow Rate 2 02/08/25 16:00 FiO2 21 02/06/25 12:03 02/08/25 02/08/25 02/08/25 06:59 14:59 22:59 Intake Total 351.65 / 1854.100 300 / 300 500 / 800 Output Total 100 / 100 2971 / 3071 Balance 351.65 / 1854.100 200 / 200 -2471 / -2271 Weight last 48 hrs Weight 78 kg Weight 79.9 kg Weight 82 kg Weight 80.1 kg Physical Exam 2 Narrative: Antalgic positioning of the right hip with partial flexion. Const: COMMON NORMALS: patient oriented x3 and alert GENERAL APPEARANCE: c ooperative ORIENTATION/CONSCIOUSNESS: Yes awake HENMT: COMMON NORMALS: oropharynx normal Neck/C-Spine: COMMON NORMALS: no JVD Chest: OTHER: HD catheter in the right chest. Undergoing Allises. Resp: COMMON NORMALS: normal respiratory effort and clear to auscultation bilaterally AUSCULTATION: clear to auscultation bilaterally Cardio: COMMON NORMALS: no JVD, regular rhythm, S1 normal heart sound present, S2 normal heart sound present and No murmurs present (Cardio) RHYTHM: regular rhythm HEART SOUNDS: S1 normal heart sound present and S2 normal heart sound present GI: COMMON NORMALS: Normal to inspection, nondistended, normoactive bowel sounds present, Soft to palpation and non-tender PALPATION: Yes Soft to palpation Extremity: COMMON NORMALS: no joint enlargement and no pedal edema N ARRATIVE EXTREMITY EXAM: RLE appears perfused. No edema. OTHER: Chronically fused right ankle. Neuro: COMMON NORMALS: patient oriented x3 and moves all extremities S ENSORIUM/ORIENTATION: Yes alert Skin: COMMON NORMALS: no rashes or lesions noted GENERAL SKIN EXAM: no rashes or lesions noted Data 02/08/25 04:00 02/08/25 04:00 A&P Assessment and plan 1. Hypertensive urgency: 2. Closed right hip fracture: Plan: Hypertensive urgency: Improved/resolved. Weaned off nicardipine. Undergoing additional dialysis. Amlodipine dose increased to 10 mg. Continue other home medications with carvedilol, clonidine, losartan, hydralazine, Imdur. Monitor vitals, monitor telemetry, monitor for risk of hypotension. Continue monitoring after surgical procedure overnight, if doing well should be able to transfer out of ICU. Right hip fracture: ORIF today. Reviewed vitals, CBC, PTT, BMP, EKG, orthopedic note. Resume anticoagulation once safe per orthopedics. PT eval requested. Initial tentative discharge disposition per patient was to go home, however, per discussion with CM depending on evaluation findings SNF rehabilitation may be a consideration. Continue pain control, had required IV Dilaudid, Flexeril for spasms exacerbating pain, but anticipate this should improve postoperatively. Add I-S. End-stage renal disease on hemodialysis : Reports adherence to full dialysis sessions; nephrology consulted in ED. HD today. Further HD per nephrology. Monitor blood pressures, hypertensive urgency resolved. Monitor for risk of hyper/hypotension. - Continue hemodialysis. - Nephrology consultation obtained in ED; proceed per nephrology recommendations. Anticoagulation management with recent drug-eluting stents : Heparin drip on hold perioperatively. Resume Eliquis versus heparin once safe per surgery. Monitor for risk of bleeding. Reassess blood counts. History of pulmonary emboli on apixaban (last dose last night) and recent coronary stents with clopidogrel (last dose 02/05 evening). Surgical planning requires interruption of apixaban; management of clopidogrel to be coordinated with cardiology given recent stenting. - Hold apixaban (Eliquis) for anticipated surgery. - Bridge with heparin drip while off apixaban (given history of pulmonary emboli). - continue Plavix - Monitor with risk of bleeding. Severe acute pain with muscle spasms : Significant right hip pain with intermittent severe spasms; IV opioids provided partial relief. He is stable and in pain. Still wearing street close. Prescription nursing may require additional pain medication to help him out of the close, but are aware to hold in case of any respiratory depression or depression of mental status with risk of encephalopathy, respiratory failure with reduced medication clearance with underlying ESRD. - Continue intravenous hydromorphone (Dilaudid) as needed for severe breakthrough pain. - Hydrocodone as needed for moderate pain. - muscle relaxer as needed for spasms with caution due to end-stage renal disease (monitor for sedation). Type 2 diabetes mellitus : On insulin glargine and sliding scale insulin; diet addressed. - Continue insulin glargine (Lantus). - sliding scale insulin. - Consistent carbohydrate diet. - Monitor POC glucose. Congestive heart failure/cardiomyopathy : Prior low ejection fraction reported; monitor volume status. - Monitor for signs of fluid overload; currently without decompensation. Cardiac diet. - Continue hemodialysis. Continue Lasix. Continue cardiac medications as above including ARB. Chronic diarrhea : Reports recurrent/chronic diarrhea; uses loperamide as needed. - Continue loperamide (Imodium) as needed. Monitor for risk of constipation with opioids. Hyperkalemia : After temporizing treatments received dialysis. Potassium today on review is 4.7. Discussed with CM, therapy. PDMP PDMP Reviewed: Not Reviewed Attestations 2 Medical Necessity Statement*: Continue admission for assessment and management after right hip fracture repair in a gentleman with history of PE on anticoagulation, recent coronary stents on antiplatelet, ESRD on dialysis, diabetes and additional comorbidities as above. and High MDM includes amount and/or complexity of data reviewed/ordered [ previous or external records, resulted lab(s)/test(s), ordered lab(s)/test(s) and other healthcare professional discussion] and described risk of complication, morbidity or mortality of management as documented Diagnoses Hypertensive urgency I16.0 Closed right hip fracture S72.001A
[2025-02-09] VITALS (18 sets, daily range): BP systolic 121–172; BP diastolic 77–95; PULSE 67–76; RESP 14–29; TEMP 36.5–36.9; O2SAT 90–100
[2025-02-09] MEDS: HYDROmorphone 0.5 MG/0.5 ML INJ IVP ×2 (00:56→06:36)
[2025-02-09 04:59] LABS: Hematocrit 32.1 % (37-53); Hemoglobin 10.00 g/dL (11.27-16.99); Mean Corpuscular HGB Conc 31.2 g/dL (30-55); Mean Corpuscular Hemoglobin 28.8 pg (27-33); Mean Corpuscular Volume 92.5 fl (82-101); Nucleated Red Blood Cells % 0 %; Platelet Count 140 10^3/cmm (157-399); Red Blood Count 3.47 10^6/uL (3.85-5.65); White Blood Count 7.38 10^3/uL (3.29-11.43)
[2025-02-09 05:15] LABS: Anion Gap 18.4 (5-19); Blood Urea Nitrogen 25 mg/dL (6-20); Calcium 9.0 mg/dL (8.5-10.5); Carbon Dioxide 23 mmol/L (22-29); Chloride 97 mmol/L (98-107); Creatinine Clr Calc Pharmacy 19.3585; Glucose 98 mg/dL (65-115); Osmolality Calculated 282 mOsm/kg (285-295); Potassium 4.4 mmol/L (3.5-5.1); Sodium 134 mmol/L (136-145)
[2025-02-09] MEDS: HYDROcodone-acetaminophen 5-325 mg Tablet 1 TAB PO ×2 (05:45→09:30)
[2025-02-09] MEDS: venlafaxine ER (24HR) 150 mg Capsule PO (05:46)
[2025-02-09] MEDS: HYDROcodone-acetaminophen 5-325 mg Tablet PO ×3 (10:50→19:35)
--- NOTE | 2025-02-09 11:32 | P.PN_ITS ---
Subjective 2 Subjective: Pt seen and examined in ICU. Pt complains of pain, hgb 10.0, will resume anticoag per primary. Vitals/I&O/Wt Last Vital Signs Temp 97.7 F 02/09/25 08:00 Pulse 69 02/09/25 08:00 Resp 29 H 02/09/25 08:00 BP 139/84 02/09/25 08:00 Pulse Ox 92 02/09/25 08:00 O2 Del Method Nasal Cannula 02/09/25 08:00 O2 Flow Rate 2 02/09/25 08:00 FiO2 2 02/09/25 00:00 02/08/25 02/09/25 02/09/25 22:59 06:59 14:59 Intake Total 700 / 1000 130 / 1130 222 / 222 Output Total 2971 / 3071 115 / 3186 Balance -227 / -1 222 / 222 Weight last 48 hrs Weight 174 lb 2.643 oz Weight 171 lb 15.369 oz Weight 176 lb 2.389 oz Physical Exam 2 Narrative: exam right hip dressing clean dry and intact, no saturations, distal pulses palpable, RLE warm and well perfused, normal TTP to right hip and normal postop swelling, compartments soft and compressible, pt able to tolerate log roll exam and resting RLE in comfortable position, pt endorses SILT distally and can wiggle toes Data 02/10/25 04:46 02/10/25 04:46 Other Labs: 11/ am labs hgb 10.0 wbc 7.38 cr 5.3 Xray Ortho: Radiologist's impression: Patient: Jose Guadalupe Claudio Unit #: [id number] : 1980 Age/Sex: 44 / M ADM Date: 02/06/25 Loc: ICU Room/Bed: [place] [address]: Chris Arnold MD Ordering Provider/Ordering MD: Aarm Liao Date of Service: 02/08/25 Procedure(s): XR hip RT 2-3V wo/w pel* 36590 Accession Number(s): [id number] Report Number: [id number] WS: [id number] Exam: XR hip RT 2-3V wo/w pel* [id number] Date/Time of Exam: 02/08/2025 1:19 PM Reason For Exam: OR PICS Intraoperative AP and lateral C-arm images of the RIGHT hip are submitted. There is internal fixation of an intertrochanteric fracture of the RIGHT hip with a femoral neck screw and intramedullary deandra. Alignment is anatomic for healing. A&P Assessment and plan 1. Closed right hip fracture: Plan: Orthopedics consulted Hospitalist admitted patient is primary Imaging reviewed?stable fixation right intertrochanteric femur fx Labs reviewed Pain control WBAT right lower extremity resume diet resume anticoag per primary Dressing change PRN if saturated Ortho will continue to follow Patient understands and agrees with current plan. All questions answered. PDMP PDMP Reviewed: Not Reviewed Attestations 2 Medical Necessity Statement*: on going care per primary s/p R hip troch nail Coding Level of Care Code Acute Code for Chg Fwd Diagnoses Closed right hip fracture S72.001A Time Spent (min) 10
--- NOTE | 2025-02-09 12:08 | PM.PN ---
Subjective Subjective: no new c/o Medications: Reviewed: Yes Vitals/I&O/Wt Last Vital Signs Temp 97.7 F 02/09/25 08:00 Pulse 69 02/09/25 08:00 Resp 29 H 02/09/25 08:00 BP 140/81 02/09/25 12:01 Pulse Ox 92 02/09/25 08:00 O2 Del Method Nasal Cannula 02/09/25 08:00 O2 Flow Rate 2 02/09/25 08:00 FiO2 2 02/09/25 00:00 02/08/25 02/09/25 02/09/25 22:59 06:59 14:59 Intake Total 700 / 1000 130 / 1130 222 / 222 Output Total 2971 / 3071 115 / 3186 Balance -2270 / -2070 222 / 222 Weight last 48 hrs Weight 79 kg Weight 78 kg Weight 79.9 kg Physical Exam Narrative: awake , alert , no distress No JVD s1s2 RRR Lungs clear per report Abd soft , non tender Ext no edema Data 02/09/25 04:36 02/09/25 04:36 A&P Assessment and plan 1. ESRD (end stage renal disease) on dialysis: Plan: 1. End-stage renal disease: On TTS schedule, now presented with hypertensive urgency and hyperkalemia HD done yesterday 2. Hypertensive urgency, resumed on home meds , improved 3. Hyperkalemia: HD as above on low potassium diet, improved 4. Hip fracture, management per primary team , likely conservative management due to multiple comorbidities Patient evaluated using audiovisual cart. Time spent 40 minutes. PDMP PDMP Reviewed: Not Reviewed Attestations Medical Necessity Statement*: per [facility] Coding Level of Care Code Acute Code for Chg Fwd Diagnoses ESRD (end stage renal disease) on dialysis N18.6; Z99.2
--- NOTE | 2025-02-09 13:59 | P.PN_ITS ---
Subjective 2 Subjective: - Patient was seen this morning - He is alert to person, to place, to ti me, follow commands - Has complaints of pain -deSpite hydrocodone continues to have p tiffanien - Discussed trial of anticoagulant thera py, given his CAD, hemoglobin is 10 - Will back on Eliquis, no chest pain Vitals/I&O/Wt Last Vital Signs Temp 97.7 F 02/09/25 08:00 Pulse 69 02/09/25 12:00 Resp 20 H 02/09/25 12:00 BP 140/81 02/09/25 12:01 Pulse Ox 95 02/09/25 12:00 O2 Del Method Nasal Cannula 02/09/25 12:00 O2 Flow Rate 2 02/09/25 08:00 FiO2 2 02/09/25 00:00 02/08/25 02/09/25 02/09/25 22:59 06:59 14:59 Intake Total 700 / 1000 130 / 1130 622 / 622 Output Total 2971 / 3071 115 / 3186 Balance -227 / -1 / -2055 622 / 622 Weight last 48 hrs Weight 79 kg Weight 78 kg Weight 79.9 kg Physical Exam 2 Const: COMMON NORMALS: no acute distress and patient oriented x3 Resp: COMMON NORMALS: normal respiratory effort, No retractions, No use of accessory muscles and clear to auscultation bilaterally AUSCULTATION: clear to auscultation bilaterally Cardio: COMMON NORMALS: regular rate, regular rhythm, S1 normal heart sound present and S2 normal heart sound present RATE: regular rate RHYTHM: r egular rhythm HEART SOUNDS: S1 normal heart sound present and S2 normal heart sound present GI: COMMON NORMALS: Normal to inspection, nondistended, normoactive bowel sounds present, non-tender and no masses Extremity: COMMON NORMALS: no pedal edema NARRATIVE EXTREMITY EXAM: Surgical site clean and dry Neuro: COMMON NORMALS: patient oriented x3 Psych: COMMON NORMALS: mental status grossly normal Data 02/09/25 04:36 02/09/25 04:36 A&P Assessment and plan 1. Hypertensive urgency: 2. Closed right hip fracture: Plan: Hypertensive urgency: - Resume home blood pressure medications Right hip fracture: -Right intertrochanteric femur fracture ORIF with cephalomedullary?nail Plan -Hydrocodone for pain control - Eliquis for DVT prophylaxis Monitor for postoperative anemia End-stage renal disease on hemodialysis : - Nephrology consulted Anticoagulation management with recent drug-eluting stents : -Continue Eliquis - continue Plavix - Monitor with risk of bleeding - Monitor hemoglobin this afternoon Severe acute pain with muscle spasms : - Pain control Type 2 diabetes mellitus : On insulin glargine and sliding scale insulin; diet addressed. - Continue Lantus - Insulin sliding scale - Consistent carbohydrate diet. Congestive heart failure/cardiomyopathy : - Continue Lasix Chronic diarrhea : - Monitor Hyperkalemia : Monitor Full code Eliquis for DVT prophylaxis PDMP PDMP Reviewed: Not Reviewed Attestations 2 Medical Necessity Statement*: Patient requires for hip fracture, postoperative anemia Diagnoses Hypertensive urgency I16.0 Closed right hip fracture S72.001A
--- NOTE | 2025-02-09 14:03 | PC.NURSE ---
Report called to Aleks, medical surgical floor, patient is to transfer to room 268.
--- NOTE | 2025-02-09 15:05 | PC.NURSE ---
Patient transferred via bed on room air to MS 268. Belongings which included shirt, pants and socks, gum, and medical supplies from this visit at bedside. Patient did not have phone, assistant unit forester, or wallet/money with him. Patient states his has his jewelry. Patient oriented to room, call light use, bed in lowest position. Patient denies any needs at the time of transport. Paper chart left at lockstitch front edge tape sewer with staff.
[2025-02-09 16:06] LABS: Hematocrit 29.8 % (37-53); Hemoglobin 9.60 g/dL (11.27-16.99)
[2025-02-09] MEDS: insulin glargine 100 units/1 mL 10 UNIT SUBCUT (17:26)
[2025-02-10] VITALS: BP 174/90; PULSE 64; RESP 17; TEMP 36.7; O2SAT 92
[2025-02-10] MEDS: HYDROcodone-acetaminophen 5-325 mg Tablet PO ×2 (01:54→07:59)
[2025-02-10 04:00] VITALS: BP 169/92; PULSE 68; RESP 16; TEMP 36.4; O2SAT 96
[2025-02-10] MEDS: venlafaxine ER (24HR) 150 mg Capsule PO (04:30)
[2025-02-10 05:08] LABS: Hematocrit 30.6 % (37-53); Hemoglobin 9.70 g/dL (11.27-16.99); Mean Corpuscular HGB Conc 31.7 g/dL (30-55); Mean Corpuscular Hemoglobin 29.4 pg (27-33); Mean Corpuscular Volume 92.7 fl (82-101); Nucleated Red Blood Cells % 0 %; Platelet Count 122 10^3/cmm (157-399); Red Blood Count 3.30 10^6/uL (3.85-5.65); White Blood Count 7.97 10^3/uL (3.29-11.43)
[2025-02-10 05:25] LABS: Alanine Aminotransferase < 5 U/L (0-41); Albumin Level 3.2 g/dL (3.5-5.2); Alkaline Phosphatase 60 U/L (40-130); Anion Gap 23.3 (5-19); Aspartate Amino Transferase 9 U/L (0-40); Blood Urea Nitrogen 46 mg/dL (6-20); Calcium 9.4 mg/dL (8.5-10.5); Carbon Dioxide 19 mmol/L (22-29); Chloride 95 mmol/L (98-107); Creatinine Clr Calc Pharmacy 14.7325; Globulin 3.4 g/dL (1.3-4.6); Glucose 167 mg/dL (65-115); Osmolality Calculated 292 mOsm/kg (285-295); Potassium 4.3 mmol/L (3.5-5.1); Sodium 133 mmol/L (136-145); Total Protein 6.6 g/dL (6.6-8.7)
[2025-02-10 05:48] VITALS: PULSE 60
[2025-02-10 07:48] VITALS: BP 196/95; PULSE 78; RESP 17; TEMP 36.4; O2SAT 91
[2025-02-10 07:53] LABS: Glucose Urine UA 2+ (Normal); Nitrate Urine Negative (Negative); Specific Gravity, Urine 1.014 (1.005-1.030)
[2025-02-10 07:58] LABS: Add Urine Microscopic? YES
--- NOTE | 2025-02-10 09:50 | P.DS_ITS ---
Discharge Providers Date of Admission: 02/06/25 12:00 Date of Discharge: February 10, 2025 Attending Provider at Admission: Chris Arnold Attending Provider at Discharge: Canelo Fox MD Primary Care Provider: Yaniv Moe MD Diagnoses at Discharge Discharge Diagnosis 1. Hypertensive urgency: 2. Closed right hip fracture: Reason for Visit Reason for Visit: Fell out of wheelchair Hospital Course Hospital Course This is a 39-year-old male with past medical history of systolic CHF, hypertension, end-stage renal disease on hemodialysis, type 2 diabetes mellitus, history of pulmonary embolism on Eliquis, CAD status post tenting, who presents to [facility] as he had fallen out of his wheelchair Patient presented to [facility] for closed right hip fracture - Status post right intertrochanteric femur fracture ORIF with cephalomedullary?nail -Received PT OT -Patient declines custodial placement -Discharged with outpatient rehab - Follow-up with primary care - Discharged on hydrocodone to be used sparingly for pain, do not drive or oper ate heavy machinery or drink while taking medication End-stage renal disease on hemodialysis, patient wants to go home today, declines inpatient hemodialysis, discussed for him to follow-up with his regular dialysis days tomorrow Tuesday For his history of CAD history of PE - He was monitored as inpatient - Continue Eliquis, Plavix on discharge - Hemoglobin stabilized at 9.7, no bloody black stools, follow-up with primary care provider to monitor hemoglobin as outpatient in 48 hours Physical Exam Const: COMMON NORMALS: no acute distress and patient oriented x3 Resp: COMMON NORMALS: normal respiratory effort, No retractions, No use of accessory muscles and clear to auscultation bilaterally AUSCULTATION: clear to auscultation bilaterally Cardio: COMMON NORMALS: regular rate, regular rhythm, S1 normal heart sound present and S2 normal heart sound present RATE: regular rate RHYTHM: regular rhythm HEART SOUNDS: S1 normal heart sound present and S2 normal heart sound present GI: COMMON NORMALS: Normal to inspection, nondistended, normoactive bowel sounds present and non-tender Extremity: COMMON NORMALS: no pedal edema Neuro: COMMON NORMALS: patient oriented x3 Psych: COMMON NORMALS: mental status grossly normal Discharge Data Studies Completed and Pending Completed Studies During Hospitalization Category Date Time Status CT hip RT wo con* [id number] Stat Cat Scan 02/06/25 11:34 Completed XR chest 1V portable [id number] Stat Exams 02/06/25 10:14 Completed XR femur RT min 2V* [id number] Stat Exams 02/06/25 10:15 Completed XR hip RT 2-3V wo/w pel* [id number] Routine Exams 02/08/25 13:19 Completed XR hip RT 2-3V wo/w pel* [id number] Stat Exams 02/06/25 09:48 Completed Pending at discharge Category Date Time Status C-arm Fluoroscopy [id number] Routine Exams 02/08/25 12:32 Taken Complete Blood Count w/Auto AM LABS Lab 02/11/25 04:00 Ordered Complete Blood Count w/Auto AM LABS Lab 02/12/25 04:00 Ordered Comprehensive Metabolic Panel AM LABS Lab 02/11/25 04:00 Ordered Comprehensive Metabolic Panel AM LABS Lab 02/12/25 04:00 Ordered Radiology Impressions Chest X-Ray 02/06/25 10:14 IMPRESSION: 1. No acute cardiopulmonary finding. Femur X-Ray 02/06/25 10:15 IMPRESSION: 1. Fracture of the proximal femur with coxa vera deformity. The remainder of the femur is normal. Hip CT 02/06/25 11:34 IMPRESSION: 1. Acute RIGHT hip fracture. Fracture extends through the femoral neck and con tinues inferiorly to the the lesser trochanter. No significant displacement. 2. Extensive atherosclerotic calcified plaque in the arteries. Laboratory Results WBC 7.97 10^3/uL (3.29-11.43) 02/10/25 04:46 RBC 3.30 10^6/uL (3.85-5.65) L 02/10/25 04:46 Hgb 9.70 g/dL (11.27-16.99) L 02/10/25 04:46 Hct 30.6 % (37-53) L 02/10/25 04:46 MCV 92.7 fl (82-101) 02/10/25 04:46 MCH 29.4 pg (27-33) 02/10/25 04:46 MCHC 31.7 g/dL (30-55) 02/10/25 04:46 RDW 14.6 % (12.1-15.1) 02/10/25 04:46 Plt Count 122 10^3/cmm (157-399) L 02/10/25 04:46 MPV 10.6 fL (7.4-10.4) H 02/10/25 04:46 Neut % (Auto) 76.2 % 02/10/25 04:46 Lymph % (Auto) 7.4 % 02/10/25 04:46 [place] % (Auto) 10.8 % 02/10/25 04:46 Eos % (Auto) 4.6 % 02/10/25 04:46 Baso % (Auto) 0.5 % 02/10/25 04:46 Neut # (Auto) 6.07 10^3/uL (1.8-7.7) 02/10/25 04:46 Lymph # (Auto) 0.6 10^3/uL (0.8-4.8) L 02/10/25 04:46 [place] # (Auto) 0.9 10^3/uL (0.2-0.9) 02/10/25 04:46 Eos # (Auto) 0.4 10^3/uL (0.0-0.8) 02/10/25 04:46 Baso # (Auto) 0.0 10^3/uL (0.0-0.1) 02/10/25 04:46 Nucleated RBC % (auto) 0 % 02/10/25 04:46 Nucleated RBCs # 0.0 /100WBC 02/10/25 04:46 APTT 61.2 SECONDS (23.9-36.7) H 02/08/25 04:00 Sodium 133 mmol/L (136-145) L 02/10/25 04:46 Potassium 4.3 mmol/L (3.5-5.1) 02/10/25 04:46 Chloride 95 mmol/L (98-107) L 02/10/25 04:46 Carbon Dioxide 19 mmol/L (22-29) L 02/10/25 04:46 Anion Gap 23.3 (5-19) H 02/10/25 04:46 BUN 46 mg/dL (6-20) H 02/10/25 04:46 Creatinine 7.0 mg/dL (0.7-1.2) H* 02/10/25 04:46 GFR Calculation 8.6 mL/min (90-130) L 02/10/25 04:46 Glucose 167 mg/dL (65-115) H 02/10/25 04:46 POC Glucose 176 mg/dL (70-110) H 02/10/25 06:17 Calculated Osmolality 292 mOsm/kg (285-295) 02/10/25 04:46 Calcium 9.4 mg/dL (8.5-10.5) 02/10/25 04:46 Total Bilirubin 0.3 mg/dL (0.15-1.2) 02/10/25 04:46 AST 9 U/L (0-40) 02/10/25 04:46 ALT < 5 U/L (0-41) 02/10/25 04:46 Alkaline Phosphatase 60 U/L (40-130) 02/10/25 04:46 Total Protein 6.6 g/dL (6.6-8.7) 02/10/25 04:46 Albumin 3.2 g/dL (3.5-5.2) L 02/10/25 04:46 Globulin 3.4 g/dL (1.3-4.6) 02/10/25 04:46 Urine Color Yellow (Yellow) 02/10/25 07:45 Urine Appearance Clear (CLEAR) 02/10/25 07:45 Urine pH 8.5 (5-7) A 02/10/25 07:45 Ur Specific [place] 1.014 (1.005-1.030) 02/10/25 07:45 Urine Protein 4+ (Negative) A 02/10/25 07:45 Urine Glucose (UA) 2+ (Normal) H 02/10/25 07:45 Urine Ketones Negative (Negative) 02/10/25 07:45 Urine Blood Negative (Negative) 02/10/25 07:45 Urine Nitrate Negative (Negative) 02/10/25 07:45 Urine Bilirubin Negative (Negative) 02/10/25 07:45 Urine Urobilinogen 0.2 mg/dL (Negative) 02/10/25 07:45 Ur Leukocyte Esterase Negative (Negative) 02/10/25 07:45 Urine RBC 0-2 /hpf (0-2) 02/10/25 07:45 Urine WBC 0-5 /hpf (0-5) 02/10/25 07:45 Ur Squamous Epith Cells 0-5 /hpf (0-5) 02/10/25 07:45 Amorphous Sediment Not Reportable 02/10/25 07:45 Urine Bacteria None seen /hpf (NONE) 02/10/25 07:45 Hyaline Casts 0-4 /lpf H 02/10/25 07:45 Blood Type AB Positive 02/08/25 12:04 Rho(D) Type Rh positive 02/08/25 12:04 Antibody Screen Negative 02/08/25 12:04 Vitals Last Vital Signs Temp 97.6 F 02/10/25 07:48 Pulse 78 02/10/25 07:48 Resp 17 02/10/25 07:48 BP 196/95 02/10/25 07:48 Pulse Ox 91 02/10/25 07:48 O2 Del Method Nasal Cannula 02/10/25 07:48 O2 Flow Rate 2 02/10/25 00:00 FiO2 2 02/09/25 00:00 Discharge Plan Discharge Patient Disposition: Home Condition: Stable Prescriptions: New hydrocodone-acetaminophen 5-325 mg tablet 1 tab PO Q6H PRN (Reason: pain) 5 Days Qty: 20 0RF Continued furosemide [Lasix] 40 mg tablet 40 mg PO DAILY Rx Instructions: On non dialysis days Eliquis 5 mg tablet 5 mg PO BID@0900,2100 Qty: 60 1RF clopidogrel 75 mg tablet 75 mg PO DAILY Qty: 90 3RF buspirone 5 mg tablet 5 mg PO TID loperamide 2 mg capsule See Rx Instructions .ROUTE .COMPLEX Rx Instructions: TAKE 1 CAPSULE BY MOUTH IN THE MORNING AND 3 IN THE EVENING venlafaxine 150 mg capsule,extended release 24hr 150 mg PO DAILY hydralazine 100 mg tablet 100 mg PO TID ropinirole 0.5 mg tablet 0.5 mg PO QPM mirtazapine 15 mg tablet 7.5 mg PO QPM sevelamer carbonate 800 mg tablet See Rx Instructions .ROUTE .COMPLEX Rx Instructions: TAKE 2 TABLETS BY MOUTH WITH THE LARGEST MEAL OF THE DAY AND 1 TABLET WITH OTHER MEALS (4 TABLETS TOTAL PER DAY) sodium bicarbonate 325 mg tablet 325 mg PO DAILY PRN (Reason: Stomach ACID) clonidine HCl 0.3 mg tablet 0.3 mg PO TID insulin glargine [Lantus Solostar U-100 Insulin] 100 unit/mL (3 mL) Insulin Pen 10 unit SUBCUT QPM carvedilol 25 mg tablet 25 mg PO TID isosorbide mononitrate 30 mg tablet extended release 24 hr 30 mg PO DAILY RenaPlex-D 800 mcg-12.5 mg -2,000 unit tablet See Rx Instructions .ROUTE .COMPLEX Rx Instructions: TAKE 1 TABLET BY MOUTH EVERY DAY (ON DIALYSIS DAYS, TAKE AFTER DIALYSIS TREATMENT) losartan 50 mg tablet 50 mg PO DAILY megestrol 400 mg/10 mL (40 mg/mL) suspension 400 mg PO DAILY insulin lispro 100 unit/mL insulin pen See Rx Instructions .ROUTE .COMPLEX Rx Instructions: Inject 15 units 3 times daily subcutaneously per sliding scale as needed for high blood sugar. gabapentin 300 mg capsule 300 mg PO BEDTIME pantoprazole 40 mg tablet,delayed release (DR/EC) 40 mg PO BIDWM Qty: 84 0RF Changed amlodipine 5 mg tablet 10 mg PO QPM 30 Days Qty: 60 0RF Referrals: Yaniv Moe MD [Primary Care Provider, Family Practice] Aram Liao DO [Physician, Orthopedics] Discharge Diet: Cardiac Discharge Activity: Resume usual activity Patient Instructions: Opioid Safety, Patient Portal & [place] Instructions Activity Restrictions/Additional Instructions: Orthopedic discharge instructions: Weightbearing as tolerated to the operative extremity Ice as needed for pain and swelling Encourage knee and hip range of motion as tolerated PT/OT Take pain medication as prescribed Take antinausea medication as needed Supplement with Citracal vitamin D for bone health and healing Take (blood thinner) as prescribed Take Colace as needed for constipation Leave Silverlon dressings on and in place for 7 days. After this they may be removed you may shower/rinse incisions with warm soapy water, pat dry redress with a dry dressing. Okay to sponge bath/shower with Silverlon dressings as they should be waterproof however if they do get saturated or wet please take these off dry the incision and redressed with a new dry sterile bandage. Follow-up in the orthopedic office with Dr. Liao in 2 weeks for repeat x-rays and incision check/staple removal Contact the office for any questions or concerns (i.e. increasing redness and drainage around the incision, fevers, or chills, or severe worsening in pain/change in symptoms) Discharge Attestations Time Spent in Discharge Care*: greater than 30 min Status at Discharge: Cognitive status at discharge: cognitively intact , Behavioral status at discharge: cooperative , Quality Metrics Clinical Quality Measures [ No reported AMI, CVA or VTE this stay] Coding Level of Care Code Acute Code for Chg Fwd Diagnoses Hypertensive urgency I16.0 Closed right hip fracture S72.001A
--- NOTE | 2025-02-10 10:16 | P.PN_ITS ---
Subjective 2 Subjective: no new c/o Medications: Reviewed: Yes Vitals/I&O/Wt Last Vital Signs Temp 97.6 F 02/10/25 07:48 Pulse 78 02/10/25 07:48 Resp 17 02/10/25 07:48 BP 196/95 02/10/25 07:48 Pulse Ox 91 02/10/25 07:48 O2 Del Method Nasal Cannula 02/10/25 07:48 O2 Flow Rate 2 02/10/25 00:00 FiO2 2 02/09/25 00:00 02/09/25 02/10/25 02/10/25 22:59 05:59 14:59 Intake Total 240 / 862 480 / 480 Output Total 0 / 0 650 / 650 200 / 200 Balance 0 / 622 -410 / 212 280 / 280 Weight last 48 hrs Weight 78.925 kg Weight 79 kg Weight 78 kg Physical Exam 2 Narrative: awake , alert , no distress No JVD s1s2 RRR Lungs clear per report Abd soft , non tender Ext no edema Data 02/10/25 04:46 02/10/25 04:46 A&P Assessment and plan 1. ESRD (end stage renal disease) on dialysis: Plan: 1. End-stage renal disease: On TTS schedule, now presented with hypertensive urgency and hyperkalemia HD done tuesday 2. Hypertensive urgency, resumed on home meds , improved 3. Hyperkalemia: HD as above on low potassium diet, improved 4. Hip fracture, management per primary team , likely conservative management due to multiple comorbidities Patient evaluated using audiovisual cart. Time spent 40 minutes. PDMP PDMP Reviewed: Not Reviewed Attestations 2 Medical Necessity Statement*: per medicne Coding Level of Care Code Acute Code for Chg Fwd Diagnoses ESRD (end stage renal disease) on dialysis N18.6; Z99.2
[2025-02-10 10:57] VITALS: BP 126/76; PULSE 63; RESP 15; TEMP 36.5; O2SAT 95
--- NOTE | 2025-02-10 14:08 | PM.PN ---
Subjective Subjective: Pt seen and examined on med surg. pt steadily improving and pain controlled with medications, planning on DC today Vitals/I&O/Wt Last Vital Signs Temp 97.7 F 02/10/25 10:57 Pulse 63 02/10/25 10:57 Resp 15 02/10/25 10:57 BP 126/76 02/10/25 10:57 Pulse Ox 95 02/10/25 10:57 O2 Del Method Nasal Cannula 02/10/25 10:57 O2 Flow Rate 2 02/10/25 00:00 FiO2 2 02/09/25 00:00 02/09/25 02/10/25 02/10/25 22:59 05:59 14:59 Intake Total 240 / 862 720 / 720 Output Total 0 / 0 650 / 650 200 / 200 Balance 0 / 622 -410 / 212 520 / 520 Weight last 48 hrs Weight 174 lb Weight 174 lb 2.643 oz Weight 171 lb 15.369 oz Physical Exam Narrative: exam right hip dressing clean dry and intact, no saturations, distal pulses palpable, RLE warm and well perfused, normal TTP to right hip and normal postop swelling, compartments soft and compressible, pt able to tolerate log roll exam and resting RLE in comfortable position, pt endorses SILT distally and can wiggle toes Data 02/10/25 04:46 02/10/25 04:46 A&P Assessment and plan 1. 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 pt to DC today and followup with Ortho in 2 wks Patient understands and agrees with current plan. All questions answered. PDMP PDMP Reviewed: Not Reviewed Attestations Medical Necessity Statement*: on going care per primary s/p R hip troch nail Coding Level of Care Code Acute Code for Chg Fwd Diagnoses Closed right hip fracture S72.001A Time Spent (min) 10
[2025-02-10 14:41] VITALS: BP 126/76; PULSE 95; RESP 15; TEMP 36.5; O2SAT 95
== END 2025-02-10 13:55 | disposition home or self-care (01) | DRG 480 ==
LOC: ER 10:08 → ER IP 12:01 → ICU 16:03 → MEDSURG 02-09 15:01
PROVIDERS: Internal Medicine; Student in an Organized Health Care Education/Training Program; Admitting Provider Internal Medicine; Emergency Provider Family Medicine; PCP Family Medicine; Visit Provider Family Medicine
PROC: 0QS604Z Reposition Right Upper Femur with Internal Fixation Device, Open Approach (ICD-10-PCS; CPT 27245; principal; 2025-02-08 12:00)
DX: S72.141A Displaced intertrochanteric fracture of right femur, initial encounter for closed fracture (principal); N18.6 End stage renal disease; I13.2 Hypertensive heart and chronic kidney disease with heart failure and with stage 5 chronic kidney disease, or end stage renal disease; I16.0 Hypertensive urgency; E11.42 Type 2 diabetes mellitus with diabetic polyneuropathy; G25.81 Restless legs syndrome; I25.10 Atherosclerotic heart disease of native coronary artery without angina pectoris; D63.1 Anemia in chronic kidney disease; F32.A Depression, unspecified; E11.22 Type 2 diabetes mellitus with diabetic chronic kidney disease; E87.5 Hyperkalemia; I50.9 Heart failure, unspecified; K52.9 Noninfective gastroenteritis and colitis, unspecified; I25.5 Ischemic cardiomyopathy; M62.838 Other muscle spasm; Z79.899 Other long term (current) drug therapy; Z79.4 Long term (current) use of insulin; Z79.01 Long term (current) use of anticoagulants; Z79.02 Long term (current) use of antithrombotics/antiplatelets; Z87.891 Personal history of nicotine dependence; Z86.711 Personal history of pulmonary embolism; Z95.5 Presence of coronary angioplasty implant and graft; W05.0XXA Fall from non-moving wheelchair, initial encounter; Z99.2 Dependence on renal dialysis; Z91.199 Patient's noncompliance with other medical treatment and regimen due to unspecified reason; Z86.73 Personal history of transient ischemic attack (TIA), and cerebral infarction without residual deficits; Z95.1 Presence of aortocoronary bypass graft; Y92.009 Unspecified place in unspecified non-institutional (private) residence as the place of occurrence of the external cause
CPT/HCPCS: 36415; 36416; 71045; 73502; 73552; 73700; 76000; 80048; 80053; 81001; 82962; 84132; 85014; 85018; 85025; 85730; 86850; 86900; 90935; 93005; 94640; 96372; 96374; 96375; 96376; 97162; 99291; C1713; J0360; J0612; J0690; J1100; J1171; J1644; J1815; J2404; J2405; J2704; J3010; J3490; J7060; J7611; J9999; P9045; Q3014

== ENCOUNTER → 2025-02-19 15:25 | Outpatient (BNVA) | payer MEDICARE, SELFPAY | PROVIDERS: PCP Family Medicine; Visit Provider Physician Assistant | DX: Z98.890 Other specified postprocedural states (principal) | CPT/HCPCS: 73502; 99024 ==

== ENCOUNTER 2025-02-24 13:35 | Inpatient (IN) | payer MEDICARE, SELFPAY ==
[2025-02-24] VITALS (13 sets, daily range): BP systolic 146–225; BP diastolic 87–131; PULSE 63–85; RESP 7–19; TEMP 36.4–36.8; O2SAT 92–100
--- OUTSIDE RECORDS SUMMARY | 2025-02-24 13:39 | XMS_ITS | Encounter Summary ---
Author Organization [facility] [employer] Address [address] [place] [address] Phone Care Team Providers Care Store Clerk Cashier Name Role Phone Savanah Garibay MD Primary Care Prov ider Reason for Visit * Reason Comments Med Refill Encounter Details Date Type Department Care Team (Late st Contact Info) Description 05/16/2020 Refill [facility] [address] [place] [address] Juana Castellon CNP Social History Tobacco Use Types Packs/Day Years Used Date Smoking Tobacco: Former Cigarettes 1 Q uit: 12/19/2017 Smokeless Tobacco: Never Alcohol [...] on filedocumented in this encounter Care Teams Store Clerk Cashier Relationship Specialty Start Date End Date Savanah Garibay MD [address] [place] [address] PCP - General Geriatric Medicine 10/19/18 documented as of this encounter
--- OUTSIDE RECORDS SUMMARY | 2025-02-24 13:39 | XMS_ITS | Encounter Summary ---
Author Organization [facility] [employer], [facility] Address [address] [place] [address] Phone Care Team Providers Care Accredited Farm Manager Name Role Phone Savanah Garibay MD Primary Care Prov ider Encounter Details Date Type Department Care Team (Late st Contact Info) Description 10/23/2024 [facility]CM [facility] [employer], [facility] [address] [place] [address] Roberta Cortez NP [address] [place] [address] Social History Tobacco Use Types [...] 10/23/2024 The patient was seen for a [id number] visit as part of Transitional Care Management services. Attending County Surveyor: KSENIA CRUZ Dialysis Location: [facility] Schedule: Shift: 2 INTERACTIVE CONTACT Contact [...] 97.8*F Current Dialysis Vitals BP Sit: 97/71 AP/MANAGING BROKER: -- Pulse: 71 CARE COORDINATION Post-discharge follow-up appointments reviewed with the patient. EDUCATION Education relevant to the discharge diagnosis provided to the patient or caregiver IMPRESSION & PLAN COMMENTS: chest pain?status post heart catheter with stent placement. Started on Imdur and Plavix ESRD?continue dialysis TTS VISIT DIAGNOSES CPT Code 30977 - High complexity, seen within 7 days [...] on filedocumented in this encounter Care Teams Accredited Farm Manager Relationship Specialty Start Date End Date Savanah Garibay MD [address] [facility] [address] [place] [address] PCP - General Geriatric Medicine 10/19/18 documented as of this encounter
--- OUTSIDE RECORDS SUMMARY | 2025-02-24 13:39 | XMS_ITS | Clinical Summary ---
Author Organization [facility] Address [address] [facility] [address] [place] [address] Phone Care Team Providers Care Break Out Man Name Role Phone Savanah Garibay MD Primary [...] tablet 3 0 Active ergocalciferol 1.25 MG (32816 UT) capsule TAKE 1 CAPSULE BY MOUTH [...] Encounters Date Type Department Care Team Description 02/20/2025 Orders Only [facility], [facility] [address] [place] [phone] Agnes Alvarado MD 02/18/2025 [facility], [facility] [address] [place] [address] Hawa Franco NP End stage renal disease; Dependence on renal dialysis 02/13/2025 Orders Only [facility], [facility] [address] [place] [address] Agnes Alvarado MD 02/11/2025 TCM in Dialysis [facility], [facility] [address] [place] [address] Hawa Franco NP 02/11/2025 Treatment [facility], [facility] [address] [place] [address] [phone] Hawa Franco NP End stage renal disease; Dependence on renal dialysis 02/04/2025 Treatment [facility], [facility] [address] [place] [address] Agnes Alvarado MD End stage renal disease; Dependence on renal dialysis 01/30/2025 Orders Only [facility], [facility] [address] [place] [address] Agnes Alvarado MD 01/28/2025 Treatment [facility], [facility] [address] [place] [phone] Hawa Franco NP End stage renal disease; Dependence on renal dialysis 01/23/2025 Orders Only [facility], [facility] [address] [place] [address] Agnes Alvarado MD 01/16/2025 [facility], [facility] [address] [place] [address] Agnes Alvarado MD 01/16/2025 Treatment [facility], [facility] [address] [place] [address] Jaky Roberts, MICHELLE End stage renal disease; Dependence on renal dialysis 01/09/2025 Treatment [facility], [facility] [address] [place] [address] Hawa Franco NP End stage renal disease; Dependence on renal dialysis 01/09/2025 [facility], [facility] [address] [place] [address] Agnes Alvarado MD 01/02/2025 Orders [facility], [facility] [address] [place] [address] Agnes Alvarado MD 12/31/[address] [place] [address], [facility] [address] [place] [address] Agnes Alvarado MD End stage renal disease; Dependence on renal dialysis 12/26/2024 [facility], [facility] [address] [place] [address] Agnes Alvarado MD 12/26/[address] [place], [place] [address]rology [facility], [facility] [address] [place] [address] Hawa Franco NP End stage renal disease; Dependence on renal dialysis 12/19/2024 Orders Only [facility], [facility] [address] [place] [address] Agnes Alvarado MD 12/17/[address] [place] [address] [facility] [address] [place] [address] Hawa Franco NP End stage renal disease; Dependence on renal dialysis 12/12/2024 Orders Only [facility], [facility] [address] [place] [address] Agnes Alvarado MD 12/12/[address] [place] [address] Nephrology [facility], [facility] [address] [place] [address] Jaky Roberts NP End stage renal disease; Dependence on renal dialysis 12/10/2024 Orders Only [facility], [facility] [address] [place] [address] Agnes Alvarado MD 11/29/2024 Orders Only [facility], [facility] [address] [place] [address] Agnes Alvarado MD 11/27/2024 Orders Only [facility], [facility] [address] [place] [address] Agnes Alvarado MD 11/27/[address] [place] [address] path [facility]ell[facility]cerology [facility], [facility] [address] [place] [address] Agnes Alvarado MD End stage renal disease; Dependence on renal dialysis from Last 3 Months Immunizations Immunization Administration [...] Exam 10/19/2018 Diabetes: Visual Foot Exam 10/19/2018 Diabetes: Hemoglobin A1C 04/18/2025 025, 12/12/2024, 09/13/2024, Additional history exists Pneumococcal Vaccine: Peds ( 0 to 5 Years) and At-Risk Patients (6 to 49 Years) (4 of 4 - PCV20 or PCV21) 10/13/2029 07/12/2023, 02/01/2020, 11/10/2015 Pneumococcal Vaccine: 50+ Years Discontinued 07/12/2023, 02/01/2020, 11/10/2015 Influenza Vaccine Completed 01/02/2025, , 01/21/2023, Additional history exists Procedures Procedure Name Priority Date/Time Associated Diagnosis Comments HEMOGLOBIN Routine 02/20/2025 [facility]IC LAB RESULTS Routine 02/13/2025 HEPATITIS B SURFACE ANTIGEN W/REFL CONFIRM Routine 02/13/2025 DIFFERENTIAL WITH WBC Routine 02/13/2025 CBC Routine 02/13/2025 PLATELET COUNT Routine 02/13/2025 POST DIALYSIS BUN Routine 02/13/2025 IRON AND TIBC Routine 02/13/2025 GLUCOSE, RANDOM Routine 02/13/2025 ALBUMIN Routine 02/13/2025 PROTEIN, TOTAL, SERUM Routine 02/13/2025 PHOSPHATE ( PHOSPHORUS) Routine 02/13/2025 CALCIUM Routine 02/13/2025 CO2, TOTAL Routine 02/13/2025 CHLORIDE Routine 02/13/2025 SODIUM Routine 02/13/2025 BUN Routine 02/13/2025 CREATININE, SERUM Routine 02/13/2025 POTASSIUM Routine 02/13/2025 HEMATOLOGY Routine 01/30/2025 HEMATOLOGY Routine 01/23/2025 SPECTRA ERIC LAB RESULTS Routine 01/16/2025 TRACE ELEMENTS Routine 01/16/2025 SPECIAL CHEMISTRY Routine 01/16/2025 HD KINETICS Routine 01/16/2025 POST CHEMISTRY Routine 01/16/2025 IMMUNO CHEMISTRY Routine 01/16/2025 SPECIAL CHEMISTRY Routine 01/16/2025 CHEMISTRY Routine 01/16/2025 CHEMISTRY Routine 01/16/2025 HEMATOLOGY Routine 01/16/2025 HEMATOLOGY Routine 01/09/2025 HEMATOLOGY Routine 01/02/2025 HEMATOLOGY Routine 12/26/2024 HEMATOLOGY Routine 12/19/2024 SPECTRA ERIC LAB RESULTS Routine 12/12/2024 HD KINETICS Routine 12/12/2024 POST CHEMISTRY Routine 12/12/2024 IMMUNO CHEMISTRY Routine 12/12/2024 TRACE ELEMENTS Routine 12/12/2024 CHEMISTRY Routine 12/12/2024 CHEMISTRY Routine 12/12/2024 SPECIAL CHEMISTRY Routine 12/12/2024 HEMATOLOGY Routine 12/12/2024 HEMATOLOGY Routine 12/10/2024 HEMATOLOGY Routine 11/29/2024 HEMATOLOGY Routine 11/27/2024 from Last 3 Months Results * (ABNORMAL) Hemoglobin (02/20/2025) Hemoglobin 8.7(L) 13.2 - 14.0 g/dL [facility] 02/20/2025 02/18/2025 5:5 6 PM LOAD TEST MECHANIC Narrative Resulting Agency Comment Performing Organization Information: Site ID: MATTY Name: [facility] Address: [address] [place], [place] [address] [address] Director: Phil Hernandez MD Agnes Alvarado MD LAB BLOOD ORDERABLES Final Re sult Performing Organization Address [facility] de Phone Number [facility] [address] [place] [phone] * (ABNORMAL) Iron and TIBC (02/13/2025) Iron, Total 68 50 - 180 mcg/dL [facility] TIBC 161(L) 250 - 425 mcg/dL (calc) [facility] Iron Saturation (TSat) 42 20 - 48 % (calc) [facility] 02/13/2025 02/11/2025 9:4 0 AM LOAD TEST MECHANIC Narrative Resulting Agency Comment Performing Organization Information: Site ID: MATTY Name: [facility] Address: [address] [place] [phone] Director: Phil Hernandez MD us Agnes Alvarado MD LAB BLOOD ORDERABLES Final Re sult Performing Organization Address [facility] Phone Number [facility] [address] * Hepatitis B Surface Ag w/Reflex Confirmation (02/13/2025) Hep B Surface Antigen NON-REACTIVE NON-REACT MARIELA [facility] Comment: For additional information, please refer to http://education.Vivoxid/faq/LDP131 (This link is being provided for informational/ educational purposes only.) Confirmation CANCELED [facility] Comment:Result canceled by richard najera. 02/13/2025 02/11/2025 9:4 0 AM LOAD TEST MECHANIC Narrative Resulting Agency Comment Performing Organization Information: Site ID: MATTY Name: [facility] Address: [address] [place] [address] Director: Phil Hernandez MD us Agnes Alvarado MD LAB BLOOD ORDERABLES Final Re sult Performing Organization Address City/[facility]/ZIP Co de Phone Number [facility] [address] [place] [address] * [facility] Lab Results (02/13/2025) Only the most recent of3 resultswithin the time period is included. eNPCR 0.89 [facility] WSTDKT/V 1.8 [facility] Center eKt/V (Tattersall) 1.70 [facility] spKt/V (Daugirdas II) 1.94 [facility] eKdrt/V 1.72 [facility] spKt/V Gotch 1.98 [facility] ge Center eKt/V Gotch 1.72 [facility] e Center PCR 54.00 [facility] Center nPCR_HD 0.94 [facility] 02/13/2025 02/13/2025 Eric Ordering Provider LAB BLOOD ORDERABLES Final Result Performing Organization Address [facility] Co de Phone Number [facility] Contact Performing lab Unknown, [place] * Post Dialysis BUN (02/13/2025) BUN Post Dialysis 9 7 - 25 mg/dL [facility] 02/13/2025 02/11/2025 9:4 0 AM LOAD TEST MECHANIC Narrative Resulting Agency Comment Performing Organization Information: Site ID: MATTY Name: [facility] Address: [address] [place] [phone] Director: Phil Hernandez MD Agnes Alvarado MD LAB BLOOD ORDERABLES Final Re sult [facility] [address] [facility] [place] [address] * (ABNORMAL) Differential with WBC (02/13/2025) WBC 7.0 3.8 - 10.8 Thousand/ uL [facility] Neutrophils Absolute 4,354 1,500 - 7,800 cells/uL [facility] Band Neutrophils Absolute, Manual Count CANCELED 0 - 750 cells/uL [facility] Comment:Result canceled by t he ancillary. Metamyelocytes Absolute CANCELED 0 cells/uL [facility] Comment:Result canceled by t he ancillary. Absolute Myelocytes CANCELED 0 cells/uL [facility] Comment:Result canceled by t he ancillary. Absolute Promyelocytes CANCELED 0 cells/uL [facility] Comment:Result canceled by t he ancillary. Lymphocytes Absolute 1,267 850 - 3,900 cells/uL [facility] Monocytes Absolute 770 200 - 950 cells/uL [facility] Eosinophils Absolute 560(H) 15 - 500 cells/uL [facility] Basophils Absolute 49 0 - 200 cells/uL [facility] Blasts Absolute CANCELED 0 cells/uL [facility] Comment:Result canceled by t he ancillary. NRBC Absolute CANCELED 0 cells/uL [facility] Comment:Result canceled by t he ancillary. Neutrophils Relative 62.2 % [facility] Bands Absolute CANCELED % [facility] Comment:Result canceled by t he ancillary. Metamyelocytes Percent CANCELED % [facility] Comment:Result canceled by t he ancillary. Myelocytes Relative CANCELED % [facility] Comment:Result canceled by t he ancillary. Promyelocytes Relative CANCELED % [facility] Comment:Result canceled by t he ancillary. Lymphocytes 18.1 % [facility] Variant lymphocytes/100 WBC (Bld) CANCELED 0 - 10 % [facility] Comment:Result canceled by t he ancillary. Monocytes 11.0 % [facility] Eosinophils 8.0 % [facility] Basophils Relative 0.7 % [facility] Blasts CANCELED % [facility] Comment:Result canceled by t he ancillary. nRBC CANCELED 0 /100 WBC [facility] Comment:Result canceled by t he ancillary. Comment(s) CANCELED [facility] Comment:Result canceled by t he ancillary. 02/13/2025 02/11/2025 9:4 0 AM LOAD TEST MECHANIC Narrative Resulting Agency Comment Performing Organization Information: Site ID: MD Name: [facility] Address: [address] [place] [phone] Director: Phil Hernandez MD Agnes Alvarado MD LAB BLOOD ORDERABLES Final Re sult Performing Organization Address [facility] Co de Phone Number [facility] [address] [place] [phone] * Platelet count (02/13/2025) Pathologist [facility] Platelets 253 140 - 400 Thousand/uL [facility] 02/13/2025 02/11/2025 9:4 0 AM LOAD TEST MECHANIC Narrative Resulting Agency Comment Performing Organization Information: Site ID: MATTY Name: [facility] Address: [address] [place] [phone] Director: Phil Hernandez MD Agnes Alvarado MD LAB BLOOD ORDERABLES Final Re sult Performing Organization Address [facility]/ZIP Co de Phone Number [facility] [id number] [place] [phone] * (ABNORMAL) CBC (02/13/2025) WBC 7.0 3.8 - 10.8 Thousand/u L [facility] RBC 3.13(L) 4.20 - 5.80 Million/uL [facility] Hemoglobin 9.2(L) 13.2 - 14.0 g/dL [facility] Hematocrit 28.8(L) 38.5 - 50.0 % [facility] MCV 92.0 80.0 - 100.0 fL [facility] MCH 29.4 27.0 - 33.0 pg [facility] MCHC 31.9(L) 32.0 - 36.0 g/dL [facility] Comment: For adults, a slight decrease in the calculated MCHC value (in the range of 30 to 32 g/dL) is most likely not clinically significant; however, it should be interpreted with caution in correlation with other red cell parameters and the patient's clinical condition. RDW 14.1 11.0 - 15.0 % [facility] 02/13/2025 02/11/2025 9:4 0 AM LOAD TEST MECHANIC Narrative Resulting Agency Comment Performing Organization Information: Site ID: MATTY Name: [facility] Address: [address] [place] [phone] Director: Phil Hernandez MD Agnes Alvarado MD LAB BLOOD ORDERABLES Final Re sult Performing Organization Address [facility]/ZIP Co de Phone Number [facility] [address] [place] [phone] * (ABNORMAL) BUN (02/13/2025) BUN 45(H) 7 - 25 mg/dL [facility] 02/13/2025 02/11/2025 9:4 0 AM LOAD TEST MECHANIC Narrative Resulting Agency Comment Performing Organization Information: Site ID: MD Name: [facility] Address: [address] [place] [phone] Director: Phil Hernandez MD us Agnes Alvarado MD LAB BLOOD ORDERABLES Final Re sult Performing Organization Address City/[facility]/ZIP Co de Phone Number [facility] [address] [place] [address] * Sodium (02/13/2025) Sodium 135 135 - 146 mmol/L [facility] 02/13/2025 02/11/2025 9:4 0 AM LOAD TEST MECHANIC Narrative Resulting Agency Comment Performing Organization Information: Site ID: MATTY Name: [facility] Address: [address] [place] [phone] Director: Phil Hernandez MD Agnes Alvarado MD LAB BLOOD ORDERABLES Final Re sult Performing Organization Address City/[facility]/ZIP Co de Phone Number [facility] [address] [place] [phone] * Protein, total (02/13/2025) Total Protein 7.1 6.1 - 8.1 g/dL [facility] 02/13/2025 02/11/2025 9:4 0 AM LOAD TEST MECHANIC Narrative Resulting Agency Comment Performing Organization Information: Site ID: MATTY Name: [facility] Address: [address] [place] [phone] Director: Phil Hernandez MD us Agnes Alvarado MD LAB BLOOD ORDERABLES Final Re sult Performing Organization Address City/[facility]/ZIP Co de Phone Number [facility] [address] [place] [phone] * Potassium (02/13/2025) Potassium 4.4 3.5 - 5.3 mmol/L [facility] 02/13/2025 02/11/2025 9:4 0 AM LOAD TEST MECHANIC Narrative Resulting Agency Comment Performing Organization Information: Site ID: MATTY Name: [facility] Address: [address] [place] [phone] Director: Phil Hernandez MD us Agnes Alvarado MD LAB BLOOD ORDERABLES Final Re sult Performing Organization Address [facility]/ZIP Co de Phone Number [facility] [address] [place] [phone] * (ABNORMAL) Phosphorus (02/13/2025) Phosphorus 6.6(H) 3.0 - 4.5 mg/dL [facility] 02/13/2025 02/11/2025 9:4 0 AM LOAD TEST MECHANIC Narrative Resulting Agency Comment Performing Organization Information: Site ID: MATTY Name: [facility] Address: [address] [place] [phone] Director: Phil Hernandez MD us Agnes Alvarado MD LAB BLOOD ORDERABLES Final Re sult Performing Organization Address [facility] Co de Phone Number [facility] [address] [place] [phone] * (ABNORMAL) Glucose, random (02/13/2025) Glucose 128(H) 65 - 99 mg/dL [facility] Comment: For someone without known diabetes, a glucose value >125 mg/dL indicates that they may have diabetes and this should be confirmed with a follow-up test. 02/13/2025 02/11/2025 9:4 0 AM LOAD TEST MECHANIC Narrative Resulting Agency Comment Performing Organization Information: Site ID: MATTY Name: [facility] Address: [address] [place] [phone] Director: Phil Hernandez MD us Agnes Alvarado MD LAB BLOOD ORDERABLES Final Re sult Performing Organization Address [facility] Co de Phone Number [facility] [address] [place] [phone] * (ABNORMAL) Creatinine, serum (02/13/2025) Creatinine 6.63(H) 0.60 - 1.29 mg/dL [facility] 02/13/2025 02/11/2025 9:4 0 AM LOAD TEST MECHANIC Narrative Resulting Agency Comment Performing Organization Information: Site ID: MATTY Name: [facility] Address: [address] [place] [phone] Director: Phil Hernandez MD us Agnes Alvarado MD LAB BLOOD ORDERABLES Final Re sult Performing Organization Address [facility] Co de Phone Number [facility] [address] [place] [phone] * (ABNORMAL) Chloride (02/13/2025) Chloride 93(L) 98 - 110 mmol/L [facility] 02/13/2025 02/11/2025 9:4 0 AM LOAD TEST MECHANIC Narrative Resulting Agency Comment Performing Organization Information: Site ID: MATTY Name: [facility] Address: [address] [place] [phone] Director: Phil Hernandez MD us Agnes Alvarado MD LAB BLOOD ORDERABLES Final Re sult Performing Organization Address [facility] de Phone Number [facility] [address] [place] [phone] * CO2 (02/13/2025) Bicarbonate (CO2) 21 20 - 29 mmol/L [facility] 02/13/2025 02/11/2025 9:4 0 AM LOAD TEST MECHANIC Narrative Resulting Agency Comment Performing Organization Information: Site ID: MATTY Name: [facility] Address: [address] [place] [phone] Director: Phil Hernandez MD us Agnes Alvarado MD LAB BLOOD ORDERABLES Final Re sult Performing Organization Address [facility] Co de Phone Number [facility] [address] [place] [phone] * Calcium (02/13/2025) Pathologist [facility] Calcium 9.3 8.6 - 10.0 mg/dL [facility] 02/13/2025 02/11/2025 9:4 0 AM LOAD TEST MECHANIC Narrative Resulting Agency Comment Performing Organization Information: Site ID: MATTY Name: [facility] Address: [address] [place] [phone] Director: Phil Hernandez MD us Agnes Alvarado MD LAB BLOOD ORDERABLES Final Re sult Performing Organization Address [facility] Co de Phone Number [facility] [phone] * Albumin (02/13/2025) [facility] Albumin 3.6 3.6 - 5.1 g/dL [facility] 02/13/2025 02/11/2025 9:4 0 AM LOAD TEST MECHANIC Narrative Resulting Agency Comment Performing Organization Information: Site ID: MATTY Name: [facility] Address: [address] [place] [phone] Director: Phil Hernandez MD Agnes Alvarado MD LAB BLOOD ORDERABLES Final Re sult Performing Organization Address City/[facility] Co de Phone Number [facility] [phone] * (ABNORMAL) HEMATOLOGY (01/30/2025) Only the most recent of11 resultswithin the time period is included. Hemoglobin 12.5(L) 14.0 - 18.0 g/dL [facility] Hemoglobin x 3 37.5(L) 42.0 - 54.0 % [facility] 01/30/2025 01/31/2025 11: 24 AM CDT Narrative [facility] - 01/31/2025 Unless otherwise specified, test(s) performed at: [facility], [address] [place] [address] SIDE STITCHING MACHINE OPERATOR: Roman Sanchez M.D. For any questions, please call customer service at FREQUENCY:OTHER Resulting Agency Comment Specimen source: Blood us Agnes Alvarado MD LAB BLOOD ORDERABLES Final Re sult Performing Organization Address [facility] de Phone Number [facility] See order comments or contact performing lab Unknown, [place] * HD KINETICS (01/16/2025) Only the most recent of2 resultswithin the time period is included. % Urea Reduction 76 65 - 80 % [facility] 01/16/2025 01/17/2025 11: 34 AM CDT Narrative Resulting Agency Comment Specimen source: Plasma us Agnes Alvarado MD LAB BLOOD ORDERABLES Final Re sult Performing Organization Address [facility] de Phone Number [facility] See order comments or contact performing lab Unknown, [place] * SPECIAL CHEMISTRY (01/16/2025) Only the most recent of3 resultswithin the time period is included. Hemoglobin A1C 5.8 4.8 - 5.9 % [facility] 01/16/2025 01/17/2025 11: 27 AM CDT Narrative [facility] - 01/17/2025 Unless otherwise specified, test(s) performed at: [facility], [address] [place] [id number] SIDE STITCHING MACHINE OPERATOR: Roman Sanchez M.D. For any questions, please call customer service at FREQUENCY:MONTHLY Resulting Agency Comment Specimen source: Blood Result Roby Alvarado MD LAB BLOOD BANK TEST ORDERABLE S Final Result Performing Organization Address [facility] de Phone Number [facility] See order comments or contact performing lab Unknown, [place] * POST CHEMISTRY (01/16/2025) Only the most recent of2 resultswithin the time period is included. BUN Post Dialysis 11 6 - 19 mg/dL [facility] 01/16/2025 01/17/2025 11: 34 AM CDT Narrative SHAR - 01/17/2025 Unless otherwise specified, test(s) performed at: [facility], [address] [place], [place] [id number] SIDE STITCHING MACHINE OPERATOR: Roman Sanchez M.D. For any questions, please call customer service at FREQUENCY:MONTHLY Resulting Agency Comment Specimen source: Plasma us Agnes Alvarado MD LAB BLOOD ORDERABLES Final Re sult [employer] [facility] See order comments or contact performing lab Unknown, [place] * IMMUNO CHEMISTRY (01/16/2025) Only the most recent of2 resultswithin the time period is included. Hepatitis B Surface Ab 58 mIU/mL [facility] Comment: The anti-HBs (Hepatitis B surface antibody) is greater than or equal to 10 mIU/mL and implies immunity. The patient has either had an antibody response to HBV vaccination, received a transfusion, or has recovered from HBV infection. For post-vaccination antibody testing guidelines for the general public, refer to MMWR April 02, 2005/Vol.54 (No. 16); 1-23, and for healthcare workers, refer to MMWR March 30, 2013/Vol.62 (No. 10); 1-18. Reference Range: <10 mIU/mL Non-Immune >=10 mIU/mL Immune The magnitude of the measured result above 10 mIU/mL is not indicative of the total amount of antibody present. Hep B Surface Ag Negative Negative [facility] Hep B Core Total Ab Negative Negative [facility] Comment: Hep B Core Ab, Total appears during the acute infection stage and remains reactive/positive throughout the recovery stage. The above test result was obtained using Siemens Centaur XP chemiluminescent method. Results obtained with different assay methods or kits cannot be used interchangeably. Hepatitis C Antibody Nonreactive Nonreactive [facility] Comment: No HCV antibody detected. The above test result was obtained using Siemens Centaur XP chemiluminescent method. Results obtained with different assay methods or kits cannot be used interchangeably. S/CO Ratio <0.02 0.00 - 0.79 [facility] Comment: s/co ratio Interpretation Supplemental testing <0.80 Nonreactive No further testing required. 0.80-0.99 Equivocal HCV RNA Quantitative Real-Time PCR is recommended. 1.00->11.00 Reactive HCV RNA Quantitative Real-Time PCR is recommended to distinguish active from resolved cases. 01/16/2025 01/17/2025 10: 08 AM CDT Narrative Resulting Agency Comment Specimen source: Serum us Agnes Alvarado MD LAB BLOOD ORDERABLES Edited R esult - Final Performing Organization Address [facility] de Phone Number [facility] See order comments or contact performing lab Unknown, [place] * TRACE ELEMENTS (01/16/2025) Only the most recent of2 resultswithin the time period is included. Aluminum <5 0 - 10 mcg/L [facility] Comment: This test was developed and its performance characteristics determined by [facility]. It has not been cleared or approved by the FDA. The laboratory is regulated under CLIA as qualified to perform high complexity testing. This test is used for clinical purposes. It should not be regarded as investigational or for research. 01/16/2025 01/17/2025 10: 36 AM CDT Narrative [facility]E - 01/17/2025 Unless otherwise specified, test(s) performed at: [facility], [address] [place] [id number] SIDE STITCHING MACHINE OPERATOR: Roman Sanchez M.D. For any questions, please call customer service at FREQUENCY:MONTHLY Resulting Agency Comment Specimen source: Serum us Agnes Alvarado MD LAB BLOOD ORDERABLES Final Re sult Performing Organization Address [facility] de Phone Number [facility] See order comments or contact performing lab Unknown, [place] * (ABNORMAL) [facility] Chemistry (01/16/2025) Only the most recent of4 resultswithin the time period is included. BUN 46(H) 6 - 19 mg/dL [facility] Creatinine 6.55(H) 0.60 - 1.30 mg/dL [facility] BUN/Creatinine Ratio 7.0(L) 10.0 - 20.0 [facility] Sodium 133(L) 136 - 145 mEq/L [facility] Potassium 4.9 3.5 - 5.1 mEq/L [facility] Chloride 94(L) 96 - 108 mEq/L [facility] Bicarbonate (CO2) 25 22 - 29 mEq/L [facility] Calcium 9.3 8.4 - 10.2 mg/dL [facility] Corrected Calcium 9.4 8.4 - 10.2 mg/dL [facility] Comment: Corrected Calcium is not equivalent to measured Ionized Calcium. Phosphorus 6.4(H) 2.6 - 4.5 mg/dL [facility] Calcium Phosphorus Product 60(H) 0 - 54 [facility] Calcium Phosporus Product, Cor 60(H) 0 - 54 [facility] Alkaline Phosphatase 60 40 - 129 U/L [facility] Total Protein 6.7 6.0 - 8.5 g/dL [facility] Albumin 3.9 3.5 - 5.2 g/dL [facility] Globulin, Total 2.8 2.0 - 4.0 g/dL [facility] A/G Ratio 1.4 1.0 - 2.0 [facility] Glucose 231(H) 70 - 100 mg/dL [facility] Magnesium 2.7(H) 1.6 - 2.6 mg/dL [facility] Iron 54 45 - 160 mcg/dL [facility] UIBC 149(L) 155 - 355 mcg/dL [facility] TIBC 203 185 - 515 mcg/dL [facility] Iron Saturation (TSat) 27 20 - 55 % [facility] Ferritin 808(H) 22 - 322 ng/mL [facility] 01/16/2025 01/17/2025 10: 08 AM CDT Narrative [facility]E - 01/17/2025 Unless otherwise specified, test(s) performed at: [facility], [address] [place] [address] SIDE STITCHING MACHINE OPERATOR: Roman Sanchez M.D. For any questions, please call customer service at FREQUENCY:MONTHLY Resulting Agency Comment Specimen source: Serum Agnes Alvarado MD LAB BLOOD ORDERABLES Edited R esult - Final [facility] See order comments or contact performing lab Unknown, [place] from Last 3 Months Insurance [place] Adv ([id number]) [facility] [place] MCR Adv ([id number]) Care Teams Break Out Man Relationship Specialty Start Date End Date Savanah Garibay MD [address] [facility] [address] [place] [address] PCP - General Geriatric Medicine 10/19/18
--- OUTSIDE RECORDS SUMMARY | 2025-02-24 13:40 | XMS_ITS | Encounter Summary ---
Author Organization [facility] Address [address] [place] [address] Phone Care Team Providers Care Rip Tailer Name Role Phone Savanah Garibay MD Primary Care Prov ider Reason for Visit * Reason Comments Med Refill Encounter Details Date Type Department Care Team (Late st Contact Info) Description 03/28/2020 Refill [facility] [address] [place] [address] Juana Castellon CNP Social History [...] on filedocumented in this encounter Care Teams Rip Tailer Relationship Specialty Start Date End Date Savanah Garibay MD [address] [place] [address] PCP - General Geriatric Medicine 10/19/18 documented as of this encounter
--- OUTSIDE RECORDS SUMMARY | 2025-02-24 13:40 | XMS_ITS | Encounter Summary ---
Author Organization [facility] Address [address] [place] [address] Phone Care Team Providers Care [place] Instructor Name Role Phone Savanah Garibay MD Primary Care Prov ider Reason for Visit * Reason Comments Med Refill Encounter Details Date Type Department Care Team (Late st Contact Info) Description 11/28/2022 Refill [facility] [address] [place] [address] Daisy Rojas MD [address] [place] [address] Social History Tobacco Use Types [...] on filedocumented in this encounter Care Teams [place] Instructor Relationship Specialty Start Date End Date Savanah Garibay MD [address] [facility] [address] [place] [address] PCP - General Geriatric Medicine 10/19/18 documented as of this encounter
--- OUTSIDE RECORDS SUMMARY | 2025-02-24 13:40 | XMS_ITS | Data Portability ---
Author Organization [facility] Marino Singh [facility] Address [address] [facility] [address] [place] [address] Care Team Providers Care Lead Machinist Name Role Phone ALEX MOE Primary Care Provider Assessment No assessment recorded. Plan of Treatment Reminders Order Date Submit Date Provider Last Modified By Organization Details Last Modified Time Details Appointments None recorded. Lab None recorded. Referral None recorded. Procedures None recorded. Surgeries None recorded. Imaging None recorded. Medication Orders gabapentin 300 mg capsule 2024 025 [facility], [address], [place], [address], 5 14:43:21 loperamide 2 mg tablet 2023 024 [facility], [address], [place], [address], 4 08:41:54 hydrocodone 5 mg-acetamin ophen 325 mg tablet 2023 024 [facility], [address], [place], [address], 4 10:08:57 Patient TargetsNo targets recorded. Patient InstructionsNo instructions recorded. Reason for Referral None Reported. Results Created Date Observation Date Name Description Value Unit Range Abnormal Flag Note LastModifiedBy Organization Detail LastModifiedTime Result Notes None recorded. Problems Name Problem SNOMED Code Status Onset Date Resolution Date Notes Provider Name and Address Organization Details Recorded Time Essential hypertensio n 11530220 Active 2023 ANGELITO webster [facility] 4 14:59:35 Heart disease 56714644 Active 2023 ANGELITO webster [facility] 4 14:59:48 Myocardial infarction 14928042 Active 2023 ANGELITO webster [facility] 4 15:00:05 Cerebrovasc ular accident 747523584 Active 2023 ANGELITO webster [facility] 4 15:00:20 Chronic kidney disease 329441738 Active 2023 ANGELITO webster [facility] 4 15:00:41 Depressive disorder 07693372 Active 2023 ANGELITO webster [facility] 4 17:11:56 Hematoma of lower leg 051937625 Active 2023 Alex Moe MD [address] [place] [address], [address], [facility] 4 14:37:43 Chronic diarrhea 161264221 Active 2023 ANGELITO webster [facility] 4 17:11:52 Hypertensiv e heart and renal disease with (congestive ) heart failure 002179095 Active 2023 ANGELITO webster [facility] 4 17:12:02 Coronary atheroscler osis 794077083 Active 2023 Alex Moe MD [address] [place] [address], [address], [facility] 5 09:34:12 Type 1 diabetes mellitus 01484846 Active 20[facility] 4 17:12:34 Sepsis 71182096 Active 2023 Alex Moe MD [address] [place] [address] 5, [facility] 4 17:33:45 Physical decondition ing 7164456596534 2 Active 2023 Alex Moe MD [address] [place] [address] 5, [facility] 4 11:08:36 Open wound of foot 392730464 Active 2023 Alex Moe MD [address] [place] [address] 5, [facility] 4 11:09:09 Pneumonia 455082969 Active 2024 Alex Moe MD [address] [place] [address] 5, [facility] 5 09:33:25 Pulmonary thromboembo lism 657488603 Active 2024 Alex Moe MD [address] [place] [address] 5, [facility] 5 09:33:34 Neuropathy 684565695 Active 2024 Alex Moe MD [address] [place] [address] 5, [facility] 5 14:42:26 Problem Notes None recorded. Procedures Surgical History Date Name Laterality Status Provider Name and Address Organization Details Recorded Time 5 Stent completed SUKHDEV DENSON [facility] 08/27/2024 11:25:03 D[address] system completed [facility], TaMaranda 09/12/2023 15:54:03 coronary artery bypass grafts x 4 completed [facility] 09/12/2023 15:54:55 Imaging Results None recorded. Procedure Notes None recorded. Medical Equipment None Reported. Allergies No known drug allergies Medications Name Sig Start Date Stop Date Status Note LastModified by Organization Details LastModified Time losartan 50 mg tablet take 2 tablets BY MOUTH DAILY active Not Available Not Available No t Available nifedipine ER 30 mg tablet,exte nded release 24 hr TAKE THREE TABLETS BY MOUTH DAILY active Not Available Not Available No t Available fluconazole 100 mg tablet TAKE 1 TABLET [...] t Available clonidine HCl 0.1 mg tablet TAKE 1 TABLET BY MOUTH TWICE DAILY active Not Available Not Available No t Available venlafaxine ER 75 mg capsule,ext ended release 24 hr TAKE 1 CAPSULE BY MOUTH THREE TIMES DAILY 01/31 completed Not Available Not Available Not Available doxycycline hyclate 100 mg capsule TAKE 1 CAPSULE BY MOUTH TWICE DAILY FOR 5 DAYS active Not Available Not Available No t Available venlafaxine 75 mg tablet TAKE 1 TABLET BY MOUTH THREE TIMES DAILY 08/27 completed Not Available Not Available Not Available bumetanide 2 mg tablet TAKE 1 TABLET BY MOUTH ONCE DAILY ON NON- active Not Available Not Available No t [...] completed Not Available Not Available Not Available isosorbide mononitrate ER 30 mg tablet,exte nded release 24 hr TAKE 1 TABLET BY MOUTH ONCE DAILY active Not Available Not Available No t Available clonidine HCl 0.3 mg tablet TAKE [...] tablet twice a day by oral route. 11/28 completed Not Available Not Available Not Available aspirin 81 mg tablet,laura yed release Take 1 tablet every day by oral route. active Not Available Not Available No t Available oxycodone-a cetaminophe n 10 mg-325 mg tablet TAKE ONE TABLET BY MOUTH EVERY 6 HOURS NEEDED FOR PAIN for SEVEN DAYS 08/27 completed Not Available Not Available Not Available linezolid 600 mg tablet TAKE ONE TABLET BY MOUTH TWICE DAILY for FIVE DAYS 11/28 completed Not Available Not Available Not Available [...] 1 TABLET BY MOUTH THREE TIMES DAILY 11/28 completed Not Available Not Available Not Available pantoprazol e 40 mg tablet,laura yed release TAKE 1 TABLET BY MOUTH EVERY DAY active Not Available Not Available No t Available ropinirole 0.5 mg tablet TAKE 1 TABLET BY MOUTH EVERY NIGHT active Not Available Not Available No t Available prednisone 50 mg tablet TAKE 1 TABLET BY MOUTH ONCE DAILY FOR 5 DAYS 11/28 completed Not Available Not Available Not Available warfarin 5 mg tablet TAKE 1 TABLET BY MOUTH ONCE DAILY 11/28 completed Not Available Not Available Not Available megestrol 40 mg tablet TAKE ONE TABLET BY MOUTH TWICE A DAY active Not Available Not Available No t Available gabapentin 300 mg capsule TAKE 1 CAPSULE BY MOUTH ONCE DAILY AT BEDTIME active Not Available Not Available [...] Not Available Not Available No t Available levofloxaci n 750 mg tablet TAKE ONE TABLET BY MOUTH EVERY 24 HOURS for FIVE DAYS 11/28 completed Not Available Not Available Not Available cefdinir 300 mg capsule TAKE 1 CAPSULE BY MOUTH TWICE DAILY FOR 5 DAYS active Not Available Not Available No t Available doxycycline hyclate 100 mg tablet TAKE [...] Available Not Available Xarelto 15 mg tablet TAKE 1 TABLET BY MOUTH ONCE DAILY 11/28 completed Not Available Not Available Not Available Eliquis 5 mg tablet TAKE ONE TABLET BY MOUTH TWICE DAILY AT 9am AND 9pm active Not Available Not Available No t Available Eliquis DVT-PE Treatment 30-Day Starter 5 mg (74 tablets) in dose pack TAKE DIRECTED 10/04 completed Not Available Not Available Not Available RenaPlex-D 800 mcg-12.5 mg-2,000 unit tablet TAKE 1 TABLET BY MOUTH EVERY DAY (ON DIALYSIS DAYS, TAKE AFTER DIALYSIS TREATMENT ) active Not Available Not Available No t Available Paxlovid 150 mg-100 mg tablets in a dose pack (Moderate Renal Dose) TAKE 150 MG TABLET OF NIRMATREL VIR WITH ONE 100 MG TAB OF RITONAVIR TWICE DAILY FOR 3 DAYS 11/28 completed Not Available Not Available Not Available insulin glargine (U-100) 100 unit/mL (3 mL) subcutaneou s pen, sensor Inject 10 units every day by subcutane ous route at bedtime. active Not Available Not Available No t Available Vitals Date Recorded Body height Provider Name an d Address Organization Details Last Updated DateTime 08/27/2024 182.88 cm [facility] 08/27/2024 11:18:05 Date Recorded Oxygen saturation Oxygen saturation in Arterial blood by Pulse oximetry Heart rate Body temperature Systolic And Diastolic Provider Name and Address Organization Details Last Updated DateTime 5 94 % 94 % 71 /min 97.6 [degF] 174/100 mm[Hg] Modesta [facility] 5 11:29:12 Date Recorded Body temperature Body weight Body mass index (BMI) Body height Oxygen saturation Oxygen saturation in Arterial blood by Pulse oximetry Heart rate Systolic And Diastolic Provider Name and Address Organization Details Last Updated DateTime 4 97.4 [degF] 34922.1 5 g 22.2 kg/m2 182.88 cm 97 % 97 % 71 /min 144/82 mm[Hg] SUKHDEV DENSON [facility] 4 14:10:55 Date Recorded Body height Body temperature Oxygen saturation Oxygen saturation in Arterial blood by Pulse oximetry Heart rate Body mass index (BMI) Body weight Systolic And Diastolic Provider Name and Address Organization Details Last Updated DateTime 5 182.88 cm 97.6 [degF] 98 % 98 % 64 /min 19.1 kg/m2 52594.5 2 g 186/94 mm[Hg] Modesta [facility] 5 14:20:54 Date Recorded Body height Body temperature Oxygen saturation Oxygen saturation in Arterial blood by Pulse oximetry Heart rate Systolic And Diastolic Provider Name and Address Organization Details Last Updated DateTime 4 182.88 cm 97.8 [degF] 98 % 98 % 76 /min 148/84 mm[Hg] SUKHDEV DENSON [facility] 4 14:27:10 Date Recorded Body height Respiratory rate Body mass index (BMI) Body weight Body temperature Oxygen saturation Oxygen saturation in Arterial blood by Pulse oximetry Heart rate Systolic And Diastolic Provider Name and Address Organization Details Last Updated DateTime 4 182.88 cm 20 /min 17.4 kg/m2 96929.8 2 g 97.4 [degF] 99 % 99 % 74 /min 140/80 mm[Hg] ANGELITO SELINA [facility] 4 13:01:26 Social History Question Answer Notes LastModified by [employer] Details LastModified Time Tobacco Smoking Status Former Smoker [facility] 09/12/2023 15:52:47 What Was The Date Of Your Most Recent Tobacco Screening? 11/28/2024 [email or web address] Information not available 11/28/2024 What Is Your Relationship Status? Information not available 09/12/2023 Sex: Unknown Functional Status Question Answer Note LastModified by [employer] Details LastModified Time Do you use any illicit or recreational drugs? Yes medical marijuana Information not available 09/12/2023 What is your level of alcohol consumption? Moderate Information not available 11/28/2024 Are you able to care for yourself independently? Yes Information not available 09/12/2023 Mental Status [...] preservative free, adsorbed 6 completed Not Available [facility] 11/28/2024 14:12:05 pneumococcal polysaccharide PPV23 6 completed Not Available [facility] 11/28/2024 14:12:05 COVID-19, mRNA, LNP-S, PF, 100 mcg/0.5mL dose or 50 mcg/0.25mL dose 1 completed Not Available [facility] 11/28/2024 14:12:05 COVID-19, mRNA, LNP-S, PF, 100 mcg/0.5mL dose or 50 mcg/0.25mL dose 1 completed Not Available [facility] 11/28/2024 14:12:05 Past Encounters Encounter ID Performer Location Encounter Start Date Encounter Closed Date Diagnosis/Indication Diagnosis SNOMED-CT Code Diagnosis ICD10 Code Diagnosis IMO Codes Diagnosis Note [id number] Alex Moe MD [facility] [address] [place] [address] 09/12/2023 15:35:17 09/12/2023 16:20:57 Depressive disorder 82589573 F32.A Will increase his venlafaxin e to 250 mg and see if this improves his mood further. Impaired mobility 106336 05 Z74.09 The patient would benefit from physical therapy and giving his underlying residual neurologic al deficits, he would also benefit from occupation al therapy. History of cerebrovascular accident 812630316 Z86.73 End stage renal failure on dialysis 733205063 Z99.2 The patient is having significan t weakness and sees his nephrologi st tomorrow. Recommend lab work, but however he will get that tomorrow through his nephrologi st [id number] Alex Moe MD [facility] [address] [place] [address] 09/26/2023 13:58:05 09/26/2023 14:41:51 Hematoma of lower leg 760246497 S80.12XD Patient was reassured. Based on informatio n obtained, likely hematoma. Discussed interventi ons including warm compresses and will provide some pain medication to help with pain management . Discussed possible aspiration if needed. [id number] Alex Moe MD [facility] [address] [place] [address] 12/07/2023 14:19:24 12/07/2023 15:09:18 Chronic diarrhea 293265063 K52.9 The patient does have chronic diarrhea [...] with nephrology . Chronic ki dney disease 765997055 N18.9 Essential hypertension 20731027 I10 Depressive disorder 3548 9007 F32.A Will increase his venlafaxin e to 250 mg and see if this improves his mood further. Hypertensi ve heart and renal disease with (congestive) heart failure 232952502 I13.2 Coronary atherosclerosis 496821772 I25.119 Type 1 jackelyn betes mellitus 58027771 E10.22 [id number] Alex Moe MD [facility] [address] [place] [address] 02/01/2024 12:53:48 02/01/2024 13:23:34 Sepsis 81318582 A41.9 Patient appears to have recovered from his severe infection. No further concerns at today's visit. Chronic ki dney disease 490821456 N18.5 Continue with hemodialys is. Physical deconditioning 1979888820 9102 R68.89 The patient would benefit from physical therapy for strengthen ing. Open wound of foot 16493 3008 S91.302A Patient has a wound developing on his foot and home health would be beneficial for wound care. [id number] Alex Moe MD [facility] [address] [place] [address] 08/27/2024 11:09:41 08/27/2024 11:48:06 Pneumonia 845304290 J18.9 [id number] Patient is recovering from pneumonia and has done well with antibiotic s. Pulmonary thromboembolism 734442682 I26.99 [id number] Patient is tolerating Eliquis well. Maintain follow-up with specialist . Coronary atherosclerosis 996739784 I25.10 [id number] Not currently having any chest pain after stent placement. Chronic ki dney disease 248701250 N18.5 Continue with hemodialys is. [id number] Alex Moe MD [facility] [address] [place] [phone] 11/28/2024 14:11:48 11/28/2024 15:24:52 Neuropathy 795138558 G62.9 [id number] The patient is struggling with neuropathy in his knee especially at night. Will restart his gabapentin at bedtime. Hypertensi ve heart and renal disease with (congestive) heart failure 602148580 I13.2 Discussed the importance of monitoring blood pressure and trying to keep it managed. Essential hypertension 07657211 I10 Nephrology is assisting with this. Monitor blood pressure twice daily. Chronic ki dney disease 395041884 N18.5 Continue with hemodialys is. Health Concerns Section Related Observation LastModified by Organization Detai ls LastModified Time None Recorded Concern Status LastModified by Organization Details LastModified Time None Recorded Advance Directives Directive None Recorded Payers Insurance Date Sequence Insurance Name Policy Number Policy Hidalgo Covered Member ID Hidalgo Member ID Guarantor Name 12/03/2024 1 [id number]/A DVANTAGE - PPO) [id number] Jose Guadalupe Claudio [id number] Jose Guadalupe González Notes Date Note Type Note Provider Name and Address Organization Details Recorded Time 09/26/2023 text/html Is a 42-year-old gentleman that [...] not been getting bigger. Alex Moe MD [address] [place] [address], [phone], [facility] 09/27/2023 16:00:04 12/07/2023 text/html DiarrheaReported by PatientHPIFor quality, patient reportssoftandloose. For onset/timing, patient reportsworse in the morningbut reportsfrequentand0-6 times per day. For severity, patient reportsmoderate. For duration, patient reportschronic (>1 month). For associated symptoms, patient reportsno abdominal pain,no nausea,no vomiting,no heartburn,no blood in stool,no black or tarry stools, andno dark yellow urine.ROS as noted in the HPI This is a 43-year-old gentleman seen today [...] very helpful for him. Alex Moe MD [address] [place] [address], [phone], [facility] 12/08/2023 13:09:42 02/01/2024 text/html This is a 43-year-old gentleman that comes in today for hospital [...] any acute needs today. Alex Moe MD [address] [place] [address], [phone], [facility] 02/20/2024 11:09:35 08/27/2024 text/html Pt is here for ICU f/u. Pt was in for pneumonia and found a blood clot in his lung. Pt also had a stent placed on 08-21-24. Pt states that he isn't having as much labored breathing and he continues to improve. He goes in for dialysis tomorrow. No acute needs today. Patient is tolerating Eliquis without difficulties. Patient has follow-up with specialist scheduled. Alex Moe MD [address] [place] [address], [phone], [facility] 08/30/2024 09:35:23 11/28/2024 text/html Pt seen at the ER on 11/13/24 for BP of 220/120Today's BP is 186/94Currently takes Losartan 50mg, Carvedilol 50mg BID, Clonidine BID PRN. Blood pressure is being managed by nephrology. Patient states that he would like to restart gabapentin as it was really helping with his neuropathy. Alex Moe MD [address] [place] [address], [phone], [facility] 12/02/2024 10:48:01
--- OUTSIDE RECORDS SUMMARY | 2025-02-24 13:40 | XMS_ITS | Encounter Summary ---
Author Organization [facility] Address [address] [place] [phone] Phone Care Team Providers Care Airplane Coverer Name Role Phone Savanah Garibay MD Primary Care Prov ider Reason for Visit * Reason Comments Med Refill Encounter Details Date Type Department Care Team (Late st Contact Info) Description 07/10/2023 Refill [facility] [address] [place] [phone] Melia Lomeli MD [address] [facility] [place] [address] Social History Tobacco Use Types Packs/Day [...] on filedocumented in this encounter Care Teams Airplane Coverer Relationship Specialty Start Date End Date Savanah Garibay MD [address] [facility] [address] [place] [address] PCP - General Geriatric Medicine 10/19/18 documented as of this encounter
--- OUTSIDE RECORDS SUMMARY | 2025-02-24 13:40 | XMS_ITS | Encounter Summary ---
Author Organization [facility] Address [address] [place] [address] Phone Care Team Providers Care Manpower Development Specialist Name Role Phone Savanah Garibay MD Primary Care Prov ider Reason for Visit * Reason Comments Med Refill Encounter Details Date Type Department Care Team (Late st Contact Info) Description 06/26/2020 Refill [facility] [address] [place] [address] Juana Castellon CNP Social History [...] on filedocumented in this encounter Care Teams Manpower Development Specialist Relationship Specialty Start Date End Date Savanah Garibay MD [address] [place] [address] PCP - General Geriatric Medicine 10/19/18 documented as of this encounter
--- OUTSIDE RECORDS SUMMARY | 2025-02-24 13:40 | XMS_ITS | Encounter Summary ---
Author Organization [facility] Address [address] [place] [address] Phone Care Team Providers Care Harvest Supervisor Name Role Phone Savanah Garibay MD Primary Care Prov ider Reason for Visit * Reason Comments Med Refill Encounter Details Date Type Department Care Team (Late st Contact Info) Description 03/09/2023 Refill [facility] [address] [place] [address] Daisy Rojas MD [address] [place] [address] Social History Tobacco Use Types [...] on filedocumented in this encounter Care Teams Harvest Supervisor Relationship Specialty Start Date End Date Savanah Garibay MD [address] [facility] [address] [place] [address] PCP - General Geriatric Medicine 10/19/18 documented as of this encounter
--- OUTSIDE RECORDS SUMMARY | 2025-02-24 13:40 | XMS_ITS | Encounter Summary ---
Author Organization [facility] Address [address] [place] [phone] Phone Care Team Providers Care Sand Temperer Name Role Phone Savanah Garibay MD Primary Care Prov ider Reason for Visit * Reason Comments Med Refill Encounter Details Date Type Department Care Team (Late st Contact Info) Description 04/06/2023 Refill [facility] [address] [place] [phone] Melia Lomeli MD [address] [place] [address] Social History Tobacco Use Types Packs/Day [...] on filedocumented in this encounter Care Teams Sand Temperer Relationship Specialty Start Date End Date Savanah Garibay MD [address] [facility] [address] [place] [address] PCP - General Geriatric Medicine 10/19/18 documented as of this encounter
--- OUTSIDE RECORDS SUMMARY | 2025-02-24 13:40 | XMS_ITS | Encounter Summary ---
Author Organization [facility] Address [address] [place] [address] Phone Care Team Providers Care Home Coordinator Name Role Phone Savanah Garibay MD Primary Care Prov ider Reason for Visit * Reason Comments Med Refill Encounter Details Date Type Department Care Team (Late st Contact Info) Description 03/12/2023 Refill [facility] [address] [place] [address] Daisy Rojas MD [address] [place] [address] Social History Tobacco Use Types [...] on filedocumented in this encounter Care Teams Home Coordinator Relationship Specialty Start Date End Date Savanah Garibay MD [address] [facility] [address] [place] [address] PCP - General Geriatric Medicine 10/19/18 documented as of this encounter
--- OUTSIDE RECORDS SUMMARY | 2025-02-24 13:40 | XMS_ITS | Encounter Summary ---
Author Organization [facility] Address [address] [place] [address] Phone Care Team Providers Care Receiving Associate Name Role Phone Savanah Garibay MD Primary Care Prov ider Reason for Visit * Reason Comments Med Refill Encounter Details Date Type Department Care Team (Late st Contact Info) Description 02/20/2023 Refill [facility] [address] [place] [address] Daisy Rojas MD [address] [place] [address] Social History Tobacco Use Types [...] on filedocumented in this encounter Care Teams Receiving Associate Relationship Specialty Start Date End Date Savanah Garibay MD [address] [facility] [address] [place] [address] PCP - General Geriatric Medicine 10/19/18 documented as of this encounter
--- OUTSIDE RECORDS SUMMARY | 2025-02-24 13:40 | XMS_ITS | Encounter Summary ---
Author Organization [facility] [employer] Address [address] [place] [address] Phone Care Team Providers Care Programmer Engineering And Scientific Name Role Phone Savanah Garibay MD Primary Care Prov ider Reason for Visit * Reason Comments Med Refill Encounter Details Date Type Department Care Team (Late st Contact Info) Description 06/14/2020 Refill [facility] [address] [place] [address] Juana Castellon CNP Social History [...] on filedocumented in this encounter Care Teams Programmer Engineering And Scientific Relationship Specialty Start Date End Date Savanah Garibay MD [address] [place] [address] PCP - General Geriatric Medicine 10/19/18 documented as of this encounter
--- OUTSIDE RECORDS SUMMARY | 2025-02-24 13:41 | XMS_ITS | Encounter Summary ---
Author Organization [facility] [employer] [employer] Address [address] [place] [address] Phone Care Team Providers Care Cuff Turner Machine Operator Name Role Phone Savanah Garibay MD Primary Care Prov ider Encounter Details Date Type Department Care Team (Late st Contact Info) Description 08/01/2018 Orders Only [facility] [employer] [employer] [address] [place] [address] Hypertensive heart AND chronic kidney [...] (HCC) documented in this encounter Care Teams Cuff Turner Machine Operator Relationship Specialty Start Date End Date Savanah Garibay MD [address] [place], [place] [id number] PCP - General Geriatric Medicine 10/19/18 documented as of this encounter
--- OUTSIDE RECORDS SUMMARY | 2025-02-24 13:41 | XMS_ITS | Encounter Summary ---
Author Organization [facility] Address [address] [place] [address] Phone Care Team Providers Care Retail Client Solutions Consultant Name Role Phone Savanah Garibay MD Primary Care Prov ider Reason for Visit * Reason Comments Med Refill Encounter Details Date Type Department Care Team (Late st Contact Info) Description 10/12/2022 Refill [facility] [address] [place] [address] Daisy Rojas MD [address] [place] [address] Social History Tobacco Use Types [...] on filedocumented in this encounter Care Teams Retail Client Solutions Consultant Relationship Specialty Start Date End Date Savanah Garibay MD [address] [place] [address] PCP - General Geriatric Medicine 10/19/18 documented as of this encounter
--- OUTSIDE RECORDS SUMMARY | 2025-02-24 13:41 | XMS_ITS | Encounter Summary ---
Author Organization [facility] [employer], [facility] Address [address] [place] [address] Phone Care Team Providers Care Combination Welder Apprentice Name Role Phone Savanah Garibay MD Primary Care Prov ider Encounter Details Date Type Department Care Team (Late st Contact Info) Description 02/18/2025 Treatment [facility] [employer] [address] [place] [address] Telly Allred NP [address] [place] [address] End stage renal disease; Dependence [...] encounter Miscellaneous Notes * Dialysis Note - Telly Allred NP - 02/18/2025 12:00 AM CST BASIC NOTE Patient: Jose Guadalupe Claudio : 1980 Note Author: TELLY ALLRED NP Service Date: 02/18/2025 This patient was personally seen [id number] for a basic visit as part of routine monthly dialysis care for end stage renal disease. Attending Supervisor Press Room: KSENIA CRUZ MD Dialysis Location: [facility] D[facility] Schedule: Shift: 2 OVERVIEW COMMENTS: Seen on Dialysis. Bp improved, not yet back to goal. Discharged from hospital post R broken hip with surgical repair: in severe pain. BP elevated, unsure if he took his medications this morning. Reviewed with patient follow up with surgeon regarding uncontrolled pain. DIALYSIS PRESCRIPTION Treatment Data Treatment Date: 02/18/2025 started at: 12:17 PM Dialysate / Machine Temp (prescribed): 37.0*C Dialysate / Machine Temp (actual): 37.0*C BFR (prescribed): 450 BFR (actual): 450 DFR (prescribed): Manual 800 DFR (actual): 800 Prescribed Time: 04:00 EDW (kg): 71.0 Dialyzer: 180NRe Optiflux Dialysate: 2.0 K, 2.5 Ca, 1.0 Mg, 100 Dextrose (G2251) Sodium: 138 Bicarb: 35 Pre Dialysis Vitals Pre BP Sit: 191/110 Pre Wt (kg): 73.8 EDW Deviation (kg): 2.8 Temp: 97.3*F Current Dialysis Vitals BP Sit: 96/65 AP/PIPE WELDER: 215/155 Pulse: 84 TREATMENT MEDICATIONS ORDERS Heparin Sodium (Porcine) 1,000 Units/mL Catheter Lock Arterial 1800 units Arterial Red Port Every Treatment Post Dialysis 12/14/2024 - 12/11/2025 Heparin Sodium (Porcine) 1,000 Units/mL Catheter Lock Venous 1800 units Venous Blue Port Every Treatment Post Dialysis 12/14/2024 - 12/11/2025 Heparin Sodium (Porcine) 1,000 Units/mL Systemic 6000 units IVP Every Treatment 12/14/2024 - 12/11/2025 Vitamin D (Calcitriol) Oral 0.25 mcg ORAL Every Treatment 12/31/2024 - 12/27/2025 BP AND FLUID ASSESSMENT COMMENTS: 148/89 Post BP Sit 173/95 - 02/15/2025 160/92 - 02/13/2025 96/73 - 02/11/2025 Post Wt (kg) 72.2 - 02/15/2025 72.0 - 02/13/2025 74.0 - 02/11/2025 EDW (kg) 71.0 - 02/15/2025 71.0 - 02/13/2025 71.0 - 02/11/2025 Deviation (kg) 1.2 - 02/15/2025 1.0 - 02/13/2025 3.0 - 02/11/2025 ADEQUACY ASSESSMENT spKt/V (Daugirdas II) 1.94 (02/13/25) 1.70 (01/16/25) 2.27 (12/12/24) eKdrt/V 1.72 (02/13/25) 1.51 (01/16/25) 1.95 (12/12/24) % Urea Reduction 76 (01/16/25) 84 (12/12/24) 82 (11/17/24) BUN 45 (02/13/25) 46 (01/16/25) 44 (12/12/24) BUN Post Dialysis 9 (02/13/25) 11 (01/16/25) 7 (12/12/24) Creatinine 6.63 (02/13/25) 6.55 (01/16/25) 6.15 (12/12/24) Bicarbonate (CO2) 21 (02/13/25) 25 (01/16/25) 23 (12/12/24) Sodium 135 (02/13/25) 133 (01/16/25) 137 (12/12/24) ACCESS ASSESSMENT COMMENTS: new stent now on plavix and will not be able to have fistula until Apr 2025 CVCatheter Tunneled Chest Active (In Use) - 01/30/2024 Placed - 01/23/2024 ANEMIA ASSESSMENT Hemoglobin 9.2 (02/13/25) 12.5 (01/30/25) 13.1 (01/23/25) Iron Saturation (TSat) 42 (02/13/25) 27 (01/16/25) 30 (12/12/24) Ferritin 808 (01/16/25) 817 (12/12/24) 886 (11/01/24) Iron, Total 68 (02/13/25) Iron 54 (01/16/25) 59 (12/12/24) 126 (11/17/24) TIBC 161 (02/13/25) 203 (01/16/25) 195 (12/12/24) MCV 92.0 (02/13/25) 97 (01/16/25) 99 (12/12/24) Folate 14.9 (01/16/25) 13.9 (06/14/24) Vitamin B-12 436 (01/16/25) 648 (06/14/24) Platelets 253 (02/13/25) 219 (01/16/25) 215 (12/12/24) BMM ASSESSMENT Calcium 9.3 02/13/25 9.3 01/16/25 8.6 12/12/24 Corrected Calcium 9.4 01/16/25 9.2 12/12/24 9.3 11/17/24 Phosphorus 6.6 02/13/25 6.4 01/16/25 5.7 12/12/24 Calcium Phosphorus Product 60 01/16/25 49 12/12/24 52 11/17/24 PTH 300 01/16/25 518 12/12/24 243 09/13/24 Vitamin D, 25-OH, Total 48.4 01/16/25 39.3 06/14/24 Magnesium 2.7 01/16/25 2.2 12/12/24 2.7 09/13/24 Alkaline Phosphatase 60 01/16/25 60 12/12/24 43 09/13/24 Aluminum ?5 01/16/25 ?5 12/12/24 ?5 06/14/24 NUTRITION ASSESSMENT Albumin 3.6 02/13/25 3.9 01/16/25 3.3 12/12/24 Potassium 4.4 02/13/25 4.9 01/16/25 4.6 12/12/24 eNPCR 0.89 02/13/25 0.85 01/16/25 0.76 12/12/24 Glucose 128 02/13/25 231 01/16/25 145 12/12/24 Hemoglobin A1C 5.8 01/16/25 5.8 12/12/24 5.0 09/13/24 ADDITIONAL LABS INR 1.95 (10/30/24) 3.00 (10/23/24) 1.68 (10/09/24) WBC 7.0 (02/13/25) 7.0 (02/13/25) 7.40 (01/16/25) Cholesterol 115 (06/14/24) HDL 52 (06/14/24) LDL Calculated 51 (06/14/24) Triglycerides 60 (06/14/24) Hepatitis B Surface Ab 58 (01/16/25) 64 (06/14/24) Chol/HDL Ratio 2.2 (06/14/24) Signed by: TELLY ALLRED NP on 02/18/2025 at 04:31:00 PM Transcribed by: TELLY ALLRED NP on 02/18/2025 at 04:31:00 PM documented in this encounter Plan of Treatment Not on file documented as of this encounter Visit Diagnoses Diagnosis End stage renal disease Dependence on renal dialysis documented in this encounter Care Teams Combination Welder Apprentice Relationship Specialty Start Date End Date Savanah Garibay MD [address] [facility] [address] [place] [address] PCP - General Geriatric Medicine 10/19/18 documented as of this encounter
--- OUTSIDE RECORDS SUMMARY | 2025-02-24 13:41 | XMS_ITS | Encounter Summary ---
Author Organization [facility] [employer] Address [address] [place] [address] Phone Care Team Providers Care Pacs Administrator Name Role Phone Savanah Garibay MD Primary Care Prov ider Encounter Details Date Type Department Care Team (Late st Contact Info) Description 01/04/2020 Orders Only [facility] [address] [place] [address] Juana Castellon CNP Stage 5 [...] (HCC) documented in this encounter Care Teams Pacs Administrator Relationship Specialty Start Date End Date Savanah Garibay MD [address] [place] [address] PCP - General Geriatric Medicine 10/19/18 documented as of this encounter
--- OUTSIDE RECORDS SUMMARY | 2025-02-24 13:41 | XMS_ITS | Encounter Summary ---
Author Organization [facility] [employer] Address [address] [place] [address] Phone Care Team Providers Care Product Safety Technical Assistant Name Role Phone Savanah Garibay MD Primary Care Prov ider Reason for Visit * Reason Comments Med Refill Encounter Details Date Type Department Care Team (Late st Contact Info) Description 05/15/2021 Refill [facility] [address] [place] [address] Juana Castellon CNP Social History [...] on filedocumented in this encounter Care Teams Product Safety Technical Assistant Relationship Specialty Start Date End Date Savanah Garibay MD [address] [place] [address] PCP - General Geriatric Medicine 10/19/18 documented as of this encounter
--- OUTSIDE RECORDS SUMMARY | 2025-02-24 13:41 | XMS_ITS | Encounter Summary ---
Author Organization [facility] Address [address] [place] [address] Phone Care Team Providers Care Clerk Travel Reservations Name Role Phone Savanah Garibay MD Primary Care Prov ider Reason for Visit * Reason Comments Med Refill Encounter Details Date Type Department Care Team (Late st Contact Info) Description 09/27/2022 Refill [facility] [address] [place] [address] Daisy Rojas MD [address] [place] [address] Social History Tobacco Use Types [...] on filedocumented in this encounter Care Teams Clerk Travel Reservations Relationship Specialty Start Date End Date Savanah Garibay MD [address] [facility] [address] [place] [address] PCP - General Geriatric Medicine 10/19/18 documented as of this encounter
--- OUTSIDE RECORDS SUMMARY | 2025-02-24 13:41 | XMS_ITS | Encounter Summary ---
Author Organization [facility] [employer], [facility] Address [address] [facility] [address] [place] [address] Phone Care Team Providers Care Darkroom Worker Name Role Phone Savanah Garibay MD Primary Care Prov ider Encounter Details Date Type Department Care Team (Late st Contact Info) Description 02/11/2025 TCM in Dialysis Clinic 8[facility] [employer], [facility] [address] [place] [address] Telly Allred NP [address] [place] [address] Social History Tobacco Use Types [...] as of this encounter Progress Notes * Telly Allred NP - 02/11/2025 12:00 AM CST Patient: Jose Guadalupe Claudio : 1980 Note Type: Dialysis TCM Service Date: 02/11/2025 The patient was seen for a [id number] visit as part of Transitional Care Management services. Attending Slurry Tank Operator: KSENIA CRUZ Dialysis Location: [facility] DIALYSIS Schedule: Shift: 2 INTERACTIVE CONTACT This fzey-kc-bill visit occurred within 2 business days of the patient?s discharge. COMMENTS: Surgical repair of right hip. Reviewed medication list and follow up with patient, no significant medication changes. HOSPITALIZATION SUMMARY Patient transitioned from: Hospital Patient transitioned to: Home Admit Date: 02/06/2025 Discharge Date: 02/10/2025 Discharged info reviewed: No outstanding diagnostic tests and treatments Reason for admission: R hip broken, surgical repair: limited records to review. Medication list reviewed, no pertinent changes beyond addition of [place] for pain management. Citing severe pain today. Reviewed following up with surgeon/PCP for pain management. HOME MEDICATIONS Discharge med list reviewed - changes reconciled and discussed with patient. Active treatment medication orders reviewed - no changes. COMMENTS: paint roller cover machine setter updating medication list Current [facility] Outpatient Medications buspirone 5 mg tablet Take 1 tablet by mouth three times a day. calcitriol 0.25 mcg capsule Take 3 capsule by mouth once a day. clopidogrel 75 mg tablet Take 1 tablet by mouth once a day. Eliquis 5 mg tablet Take 1 by mouth twice a day. [start on 08/27/24] gabapentin 100 mg capsule 3 by mouth every evening. hydralazine 100 mg tablet [TAKE 1 TABLET BY MOUTH EVERY 8 HOURS 3 x a day] insulin lispro 100 unit/mL insulin pen Inject 15 unit subcutaneously three times a day. Lantus Solostar U-100 Insulin 100 unit/mL (3 mL) insulin pen Inject 1 unit subcutaneously once a day. [Per sliding Scale] loperamide 2 mg capsule Take 1 capsule by mouth every morning. [take 3 in pm] losartan 100 mg tablet Take 1 tablet by mouth once a day. megestrol 400 mg/10 mL (10 mL) suspension Take 1 ml by mouth twice a day. mirtazapine 15 mg tablet Take 1/2 tablet by mouth every evening. nifedipine 90 mg tablet extended release 24hr Take 1 tablet by mouth once a day. nitroglycerin 0.4 mg tablet, sublingual [DISSOLVE ONE TABLET UNDER THE TONGUE EVERY 5 MIN[address] NEEDED FOR [address] PAIN. DO NOT EXCEED A TOTAL OF 3 DOSES IN 15 MINUTES] pantoprazole 40 mg tablet,delayed release (DR/EC) [Take 1 tablet (40mg) by mouth daily.] RenaPlex-D 800 mcg-12.5 mg-2,000 unit tablet Take 1 tablet by mouth once a day. ropinirole 0.5 mg tablet Take 1 tablet by mouth every night at bedtime. Sevelamer Carbonate Tablet 800 mg tablet Take 4 Tablet By Mouth Every 24 hours With Meals. [1 tablet with meals, 2 tablets with largest meal of the day.] sodium bicarbonate 325 mg tablet Take 1 tablet by mouth once a day. [as needed] venlafaxine 150 mg capsule,extended release 24hr Take 1 capsule by mouth once a day. Current [place] Allergies Allergen: No Known Allergies Allergen: No Known Drug Allergies Allergen: No Known Food Allergies TREATMENT MEDICATIONS ORDERS Heparin Sodium (Porcine) 1,000 [...] mcg ORAL Every Treatment 12/31/2024 - 12/27/2025 PHYSICAL EXAM Exam not performed. COMMENTS: In dialysis chair, in significant pain. No apparent bleeding. DIALYSIS PRESCRIPTION Dry weight during admission reviewed - no change to EDW. Treatment Data Treatment Date: 02/11/2025 started at: 12:14 PM Dialysate / Machine Temp (prescribed): 37.0*C Dialysate / Machine Temp (actual): 37.0*C BFR (prescribed): 450 BFR (average delivered): 450 DFR (prescribed): Manual 800 DFR (average delivered): 800 Prescribed Time: 04:00 Actual Time: 04:06 EDW (kg): 71.0 Dialyzer: 180NRe Optiflux Dialysate: 2.0 K, 2.5 Ca, 1.0 Mg, 100 Dextrose (G2251) Sodium: 138 Bicarb: 35 Pre Dialysis Vitals Pre BP Sit: 192/118 Pre Wt (kg): 77.1 EDW Deviation (kg): 6.1 Temp: 97.8*F Post Dialysis Vitals Post BP Sit: 96/73 Post Wt (kg): 74.0 CARE COORDINATION Post-discharge follow-up appointments reviewed with the patient. COMMENTS: Refer to SW to assist with any resource needs. EDUCATION Education relevant to the discharge diagnosis provided to the patient or caregiver IMPRESSION & PLAN COMMENTS: Monitor for s/sx bleeding, infection with dialysis treatments. VISIT DIAGNOSES CPT Code 88174 - High complexity, seen within 7 days of discharge. S72.001S Fracture of unspecified part of neck of right femur, sequela COMMENTS: Monitor for any indications of blood loss or infection. Offer resource support as needed. Signed by: TELLY ALLRED NP on 02/12/2025 at 07:18:40 AM Transcribed by: TELLY ALLRED NP on 02/12/2025 at 07:18:40 AM documented in this encounter Plan of Treatment Not on file documented as of this encounter Visit Diagnoses Not on filedocumented in this encounter Care Teams Darkroom Worker Relationship Specialty Start Date End Date Savanah Garibay MD [address] [facility] [address] [place] [address] PCP - General Geriatric Medicine 10/19/18 documented as of this encounter
--- OUTSIDE RECORDS SUMMARY | 2025-02-24 13:41 | XMS_ITS | Encounter Summary ---
Author Organization [employer], [facility] Address [address] [address] Phone Care Team Providers Care Offset Duplicating Machine Operator Name Role Phone Savanah Garibay MD Primary Care Prov ider Encounter Details Date Type Department Care Team (Late st Contact Info) Description 01/31/2024 TCM in Dialysis Clinic [facility] [email or web address], [facility] [address] [address] Agnes Alvarado MD [address] [address] Social History Tobacco Use Types Packs/Day [...] Guadalupe Claudio, 1980, 43y, M Dialysis Location: [facility] Attending Inside Plant Supervisor: Agnes Alvarado Service Date: 01/31/2024 Service Provider: [...] diabetic nephropathy Comments: DM with better hga1c ? 6%. To follow up with PCP for DM [...] on filedocumented in this encounter Care Teams Offset Duplicating Machine Operator Relationship Specialty Start Date End Date Savanah Garibay MD [address] [facility] [address] [address] PCP - General Geriatric Medicine 10/19/18 documented as of this encounter
--- OUTSIDE RECORDS SUMMARY | 2025-02-24 13:41 | XMS_ITS | Encounter Summary ---
Author Organization [facility] [employer] Address [address] [place] [address] Phone Care Team Providers Care Spa Assistant Manager Name Role Phone Savanah Garibay MD Primary Care Prov ider Reason for Visit * Reason Comments Med Refill Encounter Details Date Type Department Care Team (Late st Contact Info) Description 04/20/2021 Refill [facility] [address] [place] [address] Juana Castellon CNP Social History [...] on filedocumented in this encounter Care Teams Spa Assistant Manager Relationship Specialty Start Date End Date Savanah Garibay MD [address] [place] [address] PCP - General Geriatric Medicine 10/19/18 documented as of this encounter
--- OUTSIDE RECORDS SUMMARY | 2025-02-24 13:41 | XMS_ITS | Encounter Summary ---
Author Organization [facility] [employer] [employer] Address [address] [place] [address] Phone Care Team Providers Care Edi Programmer Analyst Name Role Phone Savanah Garibay MD Primary Care Prov ider Encounter Details Date Type Department Care Team (Late st Contact Info) Description 12/07/2019 Orders Only [facility] [employer] [address] [place] [address] Acute kidney failure with lesion [...] an order to start him on Ergo 90274 IU once a week x 8 weeks, then monthly. Hawa Franco NP * Hawa Franco NP - 12/07/2019 11:59 PM CDT Have patient begin ergocalciferol 88649 IU [place] mouth [place] 8 [place], [place] [address] U ergocalciferol by mouth monthly: recheck Vit [...] D, 25-Hydroxy 5(L) 30 - 100 ng/mL [facility] Comment: Interpretive Data Chart: Deficient: 0 - 20 ng/mL Insufficient: 21 - 29 ng/mL Sufficient: 30 - 100 ng/mL Increased Risk of Hypercalciuria: >100 ng/ml Toxic: >150 ng/ml Performed at: [facility] [place] [address] Card Lacer: Yony Malik MD CLIA # [id number] Blood specimen (specimen) Venous blood / Unknown 11/29/2019 12:00 PM CDT 11/29/2019 9:59 PM CDT [facility] LAB BLOOD ORDERABLES Final Re sult Performing Organization Address [facility] Co de Phone Number [facility] * (ABNORMAL) PTH, intact (11/29/2019 12:00 PM CDT) Pathologist [facility] Parathyroid Hormone, Intact 100(H) 15 - 65 pg/mL [facility] Comment: Test Performed by: [place] [address] Card Lacer: Wilmer Be M.D. Ph.D.; CLIA# [id number] Blood specimen (specimen) Venous blood / Unknown 11/29/2019 12:00 PM CDT 11/29/2019 9:59 PM CDT [facility] LAB BLOOD ORDERABLES Final Re sult [facility] * (ABNORMAL) CBC (11/29/2019 12:00 PM CDT) Pathologist [facility] WBC 11.3(H) 4.5 - 11.0 K/uL [facility] Red Blood Cells 2.97(L) 4.60 - 6.20 M/uL [facility] Hgb 8.6(L) 14.0 - 18.0 g/dL [...] fL [facility] Comment: Performed at: [facility] [place] [address] Card Lacer: Yony Malik MD CLIA # [id number] Blood specimen (specimen) Venous blood / Unknown 11/29/2019 12:00 PM CDT 11/29/2019 9:59 PM CDT [facility] LAB BLOOD ORDERABLES Final Re sult [facility] [...] [facility] Comment: TEST COMMENT: Fasting?->No Performed at: [facility] [address] Card Lacer: Yony Malik MD CLIA # [id number] Blood specimen (specimen) Venous blood / Unknown 11/29/2019 12:00 PM CDT 11/29/2019 9:59 PM CDT [facility] LAB BLOOD ORDERABLES Final Re sult [facility] documented in this encounter Visit Diagnoses Diagnosis Acute kidney failure with lesion of tubular necrosis (HCC) Acute kidney failure with lesion of tubular necrosis Iron deficiency anemia, not otherwise specified Vitamin D deficiency, not otherwise specified documented in this encounter Care Teams Edi Programmer Analyst Relationship Specialty Start Date End Date Savanah Garibay MD [address] [facility] [address] [place] [address] PCP - General Geriatric Medicine 10/19/18 documented as of this encounter
--- OUTSIDE RECORDS SUMMARY | 2025-02-24 13:41 | XMS_ITS | Clinical Summary ---
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 01/03/2018 Status [...] (leucocytosis) 06/20/2020 10/25/2022 Elevated troponin 01/09/2020 10/25/2022 EMRY (acute kidney injury) 01/02/2020 Anasarca 12/31/2019 10/25/2022 [...] Encounters Date Type Department Care Team Description 02/12/2025 External Device Data STL ABSTRACTION Provider, Abstract 01/08/2025 External Device Data STL ABSTRACTION Provider, [...] on file Legal Sex Male 3:36 AM MEASURING MACHINE TENDER Gender Identity Not on file Sexual Orientation [...] 10/22/2020 , 07/01/2018, 12/27/2017, Additional history exists FIT-DNA Q 3 years 10/13/2024 FIT/FOBT Q 1 year 10/13/2024 Flex Sig/CT Colonography Q 5 years 10/13/2024 INFLUENZA VACCINE (#1) 2024 , 01/21/2023, 12/31/2021, Additional history exists COVID-19 Vaccine (3 - 2024-2 6 season) 2024 07/30/2020, 06/30/2020 DIABETES HBA1C Q 6 MONTHS 12/15/20242024, 06/20/2020, 06/20/2020, Additional history exists DTAP/TDAP/TD VACCINES (2 - T d or Tdap) 12/02/2031 12/01/2021, 05/12/2015 COLORECTAL SCREENING 05/11/2032 05/11/2022, 05/11/19 Colorectal Cancer Screening 05/11/2032 Medical Devices Implanted Type Area Biodiesel Engine Specialist Device Identifier Shelf Expiration Date Model / Serial / Lot Cath Dialysis Glidepath 14.5fr 23cm Std [id number]/22/202 0 Implanted:Qty: 1 on 01/01/2020 by Sudha Montes MD Catheter Right: Chest CR BARD[employer] [id number] 04/10/2021 [id number] / / [id number] Cath Pd Jez Curl 2cuff 13386-554 - [id number] Implanted:Qty: 1 on 01/10/2020 by Adryan Witt DO Catheter N/A: Abdomen MED[employer]ONIC - COVIDIEN [id number] 07/08/2024 [id number] / / [id number] Cath Dialysis Glidepath 14.5fr 24cm Std [id number] - [id number] Implanted:Qty: 1 on 01/23/2024 by Willie Umaña MD at [facility] Catheter Right: Chest BARD DAGMAR VASC [id number] 07/09/2025 [id number] / / [id number] Hemostatic Surgifoam Sz100 1973 - [id number] Implanted:Qty: 1 on 12/29/2017 by Martinez Rodrigues MD Hemostatic N/A: Chest J[employer]J- [employer] 09/19/20211973 / / [id number] Ring Vein Marking 10mm [id number] - [id number] Implanted:Qty: 2 on 12/29/2017 by Martinez Rodrigues MD Other N/A: Chest TELEFLEX- PILL WECK STEVENSON RANCH L P [id number] / / Description:scan # [id number] Sealant Fibrin Evicel 5ml 390 - [id number] Implanted:Qty: 1 on 12/29/2017 by Martinez Rodrigues MD Other N/A: Heart J[employer]J- [employer] 08/08/2020 [id number] / / [id number] Sodus Ptfe Thck 1.6mmx2.5x10.2cm [id number] - [id number] Implanted:Qty: 1 on 12/29/2017 by Martinez Rodrigues MD Tissue N/A: Heart CR BARD[employer] 10/06/2022 [id number] / / [id number] Procedures Procedure Name Priority Date/Time Associated Diagnosis Comments COLONOSCOPY REPORT 05/11/2022 9: 02 AM MEASURING MACHINE TENDER HEMOGLOBIN A1C Routine 06/20/2020 9:34 AM MEASURING MACHINE TENDER MICROALBUMIN/CREATIN INE RATIO, RANDOM UR Routine 10/23/2019 12:52 PM CDT LIPID PANEL Routine 10/23/2019 12:49 PM CDT from Last 3 Months or Most Recently Relevant to Health Maintenance Results * COLONOSCOPY REPORT (05/11/2022 9:02 AM MEASURING MACHINE TENDER) Narrative Procedure Note Gwendolyn Marks MD (John) - 05/11/2022 9:01 AM CST [facility] Patient Name: Jose Guadalupe Claudio Procedure [...] Withdrawal Time Scope In: Scope Out: [address] [facility] HUSAM Mohamud Gwendolyn (Yolie Marks MD GI PROCEDURE ORDERABLES Final Result * (ABNORMAL) HEMOGLOBIN A1C (06/20/2020 9:34 AM MEASURING MACHINE TENDER) HEMOGLOBIN A1C 6.1(H) <=5.6 % 06/20/2020 10:34 AM [facility] EST. AVG GLUCOSE, A1C 128 mg/dL 06/20/2020 10:34 AM [facility] Blood Collection / Unknown 06/20/2020 9:34 AM MEASURING MACHINE TENDER 06/20/2020 9:37 AM MEASURING MACHINE TENDER Narrative [facility] - 06/20/2020 10:34 AM MEASURING MACHINE TENDER HGB A1C INTERPRETATION NORMAL: <5.7% PRE-DIABETES: 5.7 - 6.4% DIABETES: 6.5% OR GREATER Falsely low A1C measurements can occur when: 1. Anemia and/or hemolytic anemia is present. 2. Hemoglobin variants present. 3. Renal failure. 4. Transfusion of blood product in the last 120 days. We recommend ordering a fructosamine test([id number]) to more accurately assess glycemic status if any of the above conditions are present. Savanah Garibay MD CHEMISTRY ORDERABL ES Final Result [facility] CLIA# [id number] [address] [place] [address] [facility] CLIA# [id number] [address] [place] [address] * MICROALBUMIN/CREATININE RATIO, RANDOM UR (10/23/2019 12:52 [...] 12:52 PM CDT 10/23/2019 3:00 PM CDT [facility] - 10/23/2019 6:47 PM CDT Condition Microalbumin/Creat ratio Normal Males <17 Normal Females <25 Microalbuminuria Males 17-299 Microalbuminuria Females 25-299 Overt proteinuria >=300 Savanah Garibay MD URINE ORDERABLES F inal Result [facility] CLIA# [id number] [address] [place] [address] * (ABNORMAL) LIPID PANEL (10/23/2019 12:49 PM CDT) CHOLESTEROL 137 <200 mg/dL 10/23/2019 4:25 PM CDT [facility] TRIGLYCERIDE 35 <150 mg/dL 10/23/2019 4:25 PM CDT [facility] HDL 62(H) 40 - 59 mg/dL [...] [facility] CLIA# [id number] [address] [place] [address] from Last 3 Months or Most Recently Relevant to Health Maintenance Insurance [facility] [address] [address] RX [facility] Medicare Part D [facility] MEDICARE HMO Advance Directives For more information, please contact: [phone] * Full Code (Latest Code Status on [...] 12:59 AM 10/08/2022 8:54 PM Care Teams Commissioned Sales Associate Relationship Specialty Start Date End Date Yaniv Moe MD [address] [address] PCP - General Family Practice 10/27/23
--- OUTSIDE RECORDS SUMMARY | 2025-02-24 13:41 | XMS_ITS | Encounter Summary ---
Author Organization [facility] Address [address] [place] [address] Phone Care Team Providers Care Brick Setter Name Role Phone Savanah Garibay MD Primary Care Prov ider Reason for Visit * Reason Comments Med Refill Encounter Details Date Type Department Care Team (Late st Contact Info) Description 07/09/2021 Refill [facility] [address] [place] [address] Juana Castellon CNP Social History [...] on filedocumented in this encounter Care Teams Brick Setter Relationship Specialty Start Date End Date Savanah Garibay MD [address] [place] [address] PCP - General Geriatric Medicine 10/19/18 documented as of this encounter
--- OUTSIDE RECORDS SUMMARY | 2025-02-24 13:41 | XMS_ITS | Encounter Summary ---
Author Organization [facility] Address [address] [place] [address] Phone Care Team Providers Care Paper Hanger Name Role Phone Savanah Garibay MD Primary Care Prov ider Reason for Visit * Reason Comments Med Refill Encounter Details Date Type Department Care Team (Late st Contact Info) Description 06/13/2022 Refill [facility] [address] [place] [address] Daisy Rojas MD [address] [place] [address] Social History Tobacco Use Types [...] on filedocumented in this encounter Care Teams Paper Hanger Relationship Specialty Start Date End Date Savanah Garibay MD [address] [facility] [address] [place] [address] PCP - General Geriatric Medicine 10/19/18 documented as of this encounter
--- OUTSIDE RECORDS SUMMARY | 2025-02-24 13:41 | XMS_ITS | Encounter Summary ---
Author Organization [facility] [employer] Address [address] [place] [address] Phone Care Team Providers Care Transportation Manager Name Role Phone Savanah Garibay MD Primary Care Prov ider Encounter Details Date Type Department Care Team (Late st Contact Info) Description 11/20/2019 Orders Only [facility] [address] [place] [address] Acute kidney failure with lesion [...] Specimen Source: Urine, unspecified source Performed at: [place] [address] [id number] [employer] Plant Worker: Yony Malik MD CLIA # [id number] Urine specimen (specimen) Urine specimen obtained by clean catch procedure / Unknown 12/11/2019 12:10 PM CDT 11/20/2019 4:52 PM CDT [facility] URINE ORDERABLES Final Re sult Performing Organization Address [facility] Co de Phone Number [facility] * (ABNORMAL) Iron Panel (Fe, TIBC, TSAT) (11/20/2019 12:33 PM CDT) Iron 35(L) 59 - 158 ug/dL [facility] TIBC 192(L) 250 - 450 ug/dL [facility] Iron Saturation (TSat) 18 15 - 60 % [facility] Comment: Performed at: [place] [address] [place] [address] [employer] Worker: Yony Malik MD CLIA # [id number] Blood specimen (specimen) Venous blood / Unknown 11/20/2019 12:33 PM CDT 11/20/2019 4:52 PM CDT [facility] LAB BLOOD ORDERABLES Final Re sult Performing Organization Address City/[facility]/ZIP Co de Phone Number [facility]PS [facility] SNA * (ABNORMAL) Renal funtion [...] SNA Comment: TEST COMMENT: Fasting?->No Performed at: [facility] [address] [employer] Worker: Yony Malik MD IA # [id number] Blood specimen (specimen) Venous blood / Unknown 11/20/2019 12:33 PM CDT 11/20/2019 4:52 PM CDT [facility] LAB BLOOD ORDERABLES Final Re sult [facility] documented in this encounter Visit Diagnoses Diagnosis Acute kidney failure with lesion of tubular necrosis (HCC) Acute kidney failure with lesion of tubular necrosis Iron deficiency anemia, not otherwise specified documented in this encounter Care Teams Transportation Manager Relationship Specialty Start Date End Date Savanah Garibay MD [address] [place] [address] PCP - General Geriatric Medicine 10/19/18 documented as of this encounter
--- OUTSIDE RECORDS SUMMARY | 2025-02-24 13:41 | XMS_ITS | Encounter Summary ---
Author Organization [facility] Address [address] [place] [address] Phone Care Team Providers Care Hook Up Driver Name Role Phone Savanah Garibay MD Primary Care Prov ider Reason for Visit * Reason Comments Med Refill Encounter Details Date Type Department Care Team (Late st Contact Info) Description 03/16/2021 Refill [facility] [address] [place] [address] Daisy Rojas MD [address] [place] [address] Social History Tobacco Use Types [...] on filedocumented in this encounter Care Teams Hook Up Driver Relationship Specialty Start Date End Date Savanah Garibay MD [address] [facility] [address] [place] [address] PCP - General Geriatric Medicine 10/19/18 documented as of this encounter
--- OUTSIDE RECORDS SUMMARY | 2025-02-24 13:41 | XMS_ITS | Encounter Summary ---
Author Organization [facility] Address [address] [place] [address] Phone Care Team Providers Care Allergy Nurse Name Role Phone Savanah Garibay MD Primary Care Prov ider Encounter Details Date Type Department Care Team (Late st Contact Info) Description 02/20/2025 Orders Only [facility] [address] [place] [address] Agnes Alvarado MD [address] [place] [address] Social History Tobacco Use Types [...] Date/Time Associated Diagnosis Comments HEMOGLOBIN Routine 02/20/2025 documented in this encounter Results * (ABNORMAL) Hemoglobin (02/20/2025) Hemoglobin 8.7(L) 13.2 - 14.0 g/dL [facility] 02/20/2025 02/18/2025 5:5 6 PM VIBRATORY PILE DRIVER Narrative Resulting Agency Comment Performing Organization Information: Site ID: [place] Name: [facility] Address: [address] [place] [id number] Director: Phil Hernandez MD us Agnes Alvarado MD LAB BLOOD ORDERABLES Final Re sult [facility] [address] [place] [address] documented in this encounter Visit Diagnoses Not on filedocumented in this encounter Care Teams Allergy Nurse Relationship Specialty Start Date End Date Savanah Garibay MD [address] [facility] [address] [place] [address] PCP - General Geriatric Medicine 10/19/18 documented as of this encounter
--- OUTSIDE RECORDS SUMMARY | 2025-02-24 13:41 | XMS_ITS | Encounter Summary ---
Author Organization [facility] Address [address] [place] [address] Phone Care Team Providers Care Belt Sander Name Role Phone Savanah Garibay MD Primary Care Prov ider Reason for Visit * Reason Comments Med Refill Encounter Details Date Type Department Care Team (Late st Contact Info) Description 10/27/2020 Refill [facility] [address] [place] [address] Daisy Rojas MD [address] [place] [address] Social History Tobacco Use Types [...] on filedocumented in this encounter Care Teams Belt Sander Relationship Specialty Start Date End Date Savanah Garibay MD [address] [facility] [address] [place] [address] PCP - General Geriatric Medicine 10/19/18 documented as of this encounter
--- OUTSIDE RECORDS SUMMARY | 2025-02-24 13:41 | XMS_ITS | Encounter Summary ---
Author Organization [facility] Address [address] [place] [address] Phone Care Team Providers Care Gold And Silver Assayer Name Role Phone Savanah Garibay MD Primary Care Prov ider Reason for Visit * Reason Comments Med Refill Encounter Details Date Type Department Care Team (Late st Contact Info) Description 06/01/2021 Refill [facility] [address] [place] [address] Juana Castellon CNP Social History [...] on filedocumented in this encounter Care Teams Gold And Silver Assayer Relationship Specialty Start Date End Date Savanah Garibay MD [address] [place] [address] PCP - General Geriatric Medicine 10/19/18 documented as of this encounter
--- OUTSIDE RECORDS SUMMARY | 2025-02-24 13:41 | XMS_ITS | Encounter Summary ---
Author Organization [facility] Address [address] [place] [address] Phone Care Team Providers Care Meat Slicer Name Role Phone Savanah Garibay MD Primary Care Prov ider Reason for Visit * Reason Comments Med Refill Encounter Details Date Type Department Care Team (Late st Contact Info) Description 03/15/2022 Refill [facility] [address] [place] [address] Juana Castellon CNP Social History [...] on filedocumented in this encounter Care Teams Meat Slicer Relationship Specialty Start Date End Date Savanah Garibay MD [address] [place] [address] PCP - General Geriatric Medicine 10/19/18 documented as of this encounter
--- OUTSIDE RECORDS SUMMARY | 2025-02-24 13:41 | XMS_ITS | Encounter Summary ---
Author Organization [facility] Address [address] [place] [address] Phone Care Team Providers Care Senior Online Marketing Manager Name Role Phone Savanah Garibay MD Primary Care Prov ider Reason for Visit * Reason Comments Med Refill Encounter Details Date Type Department Care Team (Late st Contact Info) Description 07/24/2024 Refill [facility] [address] [place] [address] Agnes Alvarado MD [address] [place] [address] Social History Tobacco Use Types [...] filedocumented in this encounter Care Teams Senior Online Marketing Manager Relationship Specialty Start Date End Date Savanah Garibay MD [address] [place] [address] PCP - General Geriatric Medicine 10/19/18 documented as of this encounter
--- OUTSIDE RECORDS SUMMARY | 2025-02-24 13:41 | XMS_ITS | Encounter Summary ---
Author Organization [facility] Address [address] [place] [address] Phone Care Team Providers Care Life Insurance Actuary Name Role Phone Savanah Garibay MD Primary Care Prov ider Encounter Details Date Type Department Care Team (Late st Contact Info) Description 12/25/2019 Orders Only [facility] [address] [place] [address] Daisy Rojas MD [address] [place] [address] Stage 5 chronic kidney disease [...] PM EDT documented as of this encounter Functional Status * Question Answer Date of Assessment Author BP 142/90 12/28/2019 4:21 PM EDT Escobar KeilaRoberta, CONTACT CENTER CONSULTANT Temp 98.3 12/28/2019 4:21 PM EDT Roberta Escobar LPN Pulse 68 12/28/2019 4:21 PM EDT Escobar Roberta, CONTACT CENTER CONSULTANT Height 72 12/28/2019 4:21 PM EDT Keila Escobarsea, CONTACT CENTER CONSULTANT Weight 3868.8 12/28/2019 4:21 PM EDT Roberta Escobar CONTACT CENTER CONSULTANT * BMI (Calculated) Answer Date of Assessment Author 32.8 12/28/2019 4:21 PM EDT Edouard Escobara, CONTACT CENTER CONSULTANT * BP Location Answer Date of Assessment Author Left arm 12/28/2019 4:21 PM EDT Edouard Escobar CONTACT CENTER CONSULTANT * Question Answer Date of Assessment Author BP 142/90 12/28/2019 4:21 PM EDT Shawn Roberta, CONTACT CENTER CONSULTANT Height 72 12/28/2019 4:21 PM EDT Twanammon lizamaRoberta LPN Weight 3868.8 12/28/2019 4:21 PM EDT Jas Escobara CONTACT CENTER CONSULTANT * BMI (Calculated) Answer Date of Assessment Author 32.8 12/28/2019 4:21 PM EDT Edouard Escobar CONTACT CENTER CONSULTANT * BP Location Answer Date of Assessment Author Left arm 12/28/2019 4:21 PM EDT Edouard Escobar, CONTACT CENTER CONSULTANT documented as of this encounter Plan of Treatment Not on file documented as of this encounter Visit Diagnoses Diagnosis Stage 5 chronic kidney disease (HCC) documented in this encounter Care Teams Life Insurance Actuary Relationship Specialty Start Date End Date Savanah Garibay MD [address] [facility] [address] [place] [address] PCP - General Geriatric Medicine 10/19/18 documented as of this encounter
--- NOTE | 2025-02-24 13:46 | CTR_ITS ---
PROCEDURE INFORMATION: Exam: CT Head Without Contrast Exam date and time: 02/24/2025 1:51 PM Age: 44 years old Clinical indication: Stroke-like symptoms; Altered mental status/memory loss; Additional info: AMS TECHNIQUE: Imaging protocol: Computed tomography of the head without contrast. Radiation optimization: All CT scans at this facility use at least one of these dose optimization techniques: automated exposure control; mA and/or kV adjustment per patient size (includes targeted exams where dose is matched to clinical indication); or iterative reconstruction. Other technique: STROKE PROTOCOL was implemented. COMPARISON: No relevant prior studies available. RADIATION DOSE METRICS: Total DLP (mGy-cm): 1139.68 FINDINGS: Brain: No intracranial hemorrhage. There is global parenchymal volume loss. Periventricular white matter hypoattenuation is nonspecific but most likely due to small vessel disease. No evidence of acute territorial infarct or cerebral edema. No mass effect or midline shift. Nonacute lacunar infarct left basal ganglia. Cerebral ventricles: Prominent ventricles likely secondary to volume loss. Paranasal sinuses: Visualized sinuses are unremarkable. No fluid levels. Mastoid air cells: Visualized mastoid air cells are well aerated. Bones: Unremarkable. No acute fracture. Soft tissues: Unremarkable. CT/CT head wo con* [id number] IMPRESSION: No acute intracranial findings. ASSESSMENT: ASPECTS (Arlene Stroke Program Early CT Score) is 10.
--- NOTE | 2025-02-24 13:46 | CTR_ITS ---
PROCEDURE INFORMATION: Exam: CTA Head With Contrast, Arteriography Exam date and time: 02/24/2025 1:54 PM Age: 44 years old Clinical indication: Other: AMS; PT moving TECHNIQUE: Imaging protocol: Computed tomographic angiography of the head with contrast. Exam focused on the arteries. 3D rendering (Not supervised by radiologist): MIP and/or 3D reconstructed images were created by the technologist. Radiation optimization: All CT scans at this facility use at least one of these dose optimization techniques: automated exposure control; mA and/or kV adjustment per patient size (includes targeted exams where dose is matched to clinical indication); or iterative reconstruction. Contrast material: OMNI 350; Contrast volume: 100 ml; Contrast route: INTRAVENOUS (IV); COMPARISON: CT head wo con* [id number] 02/24/2025 1:51 PM RADIATION DOSE METRICS: Total DLP (mGy-cm): 472.85 FINDINGS: ANTERIOR CIRCULATION: Right internal carotid artery: Intracranial segment is patent with no significant stenosis. No aneurysm. Atherosclerotic calcification of the right carotid siphon. Right middle cerebral artery: No occlusion or significant stenosis. No aneurysm. Right anterior cerebral artery: No occlusion or significant stenosis. No aneurysm. Left internal carotid artery: Intracranial segment is patent with no significant stenosis. No aneurysm. Atherosclerotic calcification of the left carotid siphon. Left middle cerebral artery: No occlusion or significant stenosis. No aneurysm. Left anterior cerebral artery: No occlusion or significant stenosis. No aneurysm. POSTERIOR CIRCULATION: Right vertebral artery: No occlusion or significant stenosis. No aneurysm. Left vertebral artery: No occlusion or significant stenosis. No aneurysm. Basilar artery: No occlusion or significant stenosis. No aneurysm. Right posterior cerebral artery: No occlusion or significant stenosis. No aneurysm. Left posterior cerebral artery: No occlusion or significant stenosis. No aneurysm. Brain: Reported separately. PROCEDURE INFORMATION: Exam: CTA Neck With Contrast Exam date and time: 02/24/2025 1:54 PM Age: 44 years old Clinical indication: Other: AMS; PT moving TECHNIQUE: Imaging protocol: Computed tomographic angiography of the neck with contrast. Exam focused on the cervical segments of the vasculature. 3D rendering (Not supervised by radiologist): MIP and/or 3D reconstructed images were created by the technologist. Radiation optimization: All CT scans at this facility use at least one of these dose optimization techniques: automated exposure control; mA and/or kV adjustment per patient size (includes targeted exams where dose is matched to clinical indication); or iterative reconstruction. Contrast material: OMNI 350; Contrast volume: 100 ml; Contrast route: INTRAVENOUS (IV); COMPARISON: CT angio chest PE protcl [id number] 12/03/2024 9:04 AM RADIATION DOSE METRICS: Total DLP (mGy-cm): 472.85 FINDINGS: Limitations: Patient motion artifact obscures visualization of vascular structures, most prominently the proximal right ICA. Right common carotid artery: No stenosis. No dissection or occlusion. Right internal carotid artery: Calcified plaque with approximately 50% stenosis in the proximal right ICA. Right external carotid artery: No occlusion or stenosis of the origin. Left common carotid artery: No stenosis. No dissection or occlusion. Left internal carotid artery: No stenosis of the extracranial segment. No dissection or occlusion. Left external carotid artery: No occlusion or stenosis of the origin. Right vertebral artery: No stenosis. No dissection or occlusion. Left vertebral artery: No stenosis. No dissection or occlusion. Soft tissues: Normal. No significant soft tissue swelling. Bones/joints: Previous median sternotomy. CT/CT angio headneck* [id number] IMPRESSION: No large vessel stenosis or occlusion. IMPRESSION: 1. Patient motion artifact obscures visualization of vascular structures, most prominently the proximal right ICA. 2. Calcified plaque with approximately 50% stenosis in the proximal right ICA. REFERENCES: NASCET CRITERIA. The degree of stenosis in the cervical segment of the internal carotid artery is based on NASCET criteria. Normal is no stenosis. Mild is less than 50% stenosis. Moderate is 50-69% stenosis. Severe is 70% to 99% stenosis. Total occlusion is no detectable patent lumen.
--- NOTE | 2025-02-24 13:46 | XRR_ITS ---
PROCEDURE INFORMATION: Exam: XR Chest Exam date and time: 02/24/2025 2:33 PM Age: 44 years old Clinical indication: Other: AMS; Prior surgery; Surgery date: 6+ months; Surgery type: Heart TECHNIQUE: Imaging protocol: Radiologic exam of the chest. Views: 1 view. COMPARISON: CR XR chest 1V portable [id number] 02/06/2025 10:06 AM FINDINGS: Tubes, catheters and devices: Central line tip at atriocaval junction. Lungs: Unremarkable. No consolidation. Pleural spaces: Unremarkable. No pleural effusion. No pneumothorax. Heart/Mediastinum: Unremarkable. No cardiomegaly. Bones/joints: Previous median sternotomy. XR/XR chest 1V portable [id number] IMPRESSION: No acute findings.
--- NOTE | 2025-02-24 13:46 | ECG_ITS ---
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 Measurements Intervals [place] Rate: 78 P: 65 [place]: 172 QRS: 64 QRSD: 109 T: 61 QT: 439 QTc: 501 Interpretive Statements SINUS RHYTHM MILD INTRAVENTRICULAR CONDUCTION DELAY POSSIBLE LEFT ATRIAL ENLARGEMENT [-0.1mV P-WAVE IN V1/V2] SEPTAL MYOCARDIAL INFARCTION , PROBABLY OLD [40+ ms Q WAVE IN V1/V2] Compared to ECG 02/06/2025 10:56:14 No significant changes Electronically Signed On 02-24-2025 14:53:59 [employer] by Jerald Garza M.D. [id number]
[2025-02-24 13:54] LABS: Hematocrit 31.1 % (37-53); Hemoglobin 9.70 g/dL (11.27-16.99); Mean Corpuscular HGB Conc 31.2 g/dL (30-55); Mean Corpuscular Hemoglobin 29.0 pg (27-33); Mean Corpuscular Volume 92.8 fl (82-101); Nucleated Red Blood Cells % 0 %; Platelet Count 408 10^3/cmm (157-399); Red Blood Count 3.35 10^6/uL (3.85-5.65); White Blood Count 9.50 10^3/uL (3.29-11.43)
[2025-02-24 14:10] LABS: INR 1.11 (0.8-1.2); Prothrombin Time 15.10 SECONDS (12.1-14.9)
[2025-02-24] MEDS: labetalol 5 mg/mL SDV 20mL 10 MG IVP (14:10)
[2025-02-24] MEDS: iohexol 350 mg/mL 500 mL Btl (per mL) IV (14:10)
--- NOTE | 2025-02-24 14:14 | W.ED.NEUROSD ---
HPI - Neuro Symptoms/Deficit General: Chief Complaint: Neuro Symptoms/Deficit Stated Complaint: ams; nausea Time Seen by Provider: 02/24/25 13:40 Source: EMS Mode of arrival: EMS Limitations: altered mental status History of Present Illness: 44-year-old male history of multiple medical issues including hypertension end-stage renal disease on dialysis CHF, CABG, pulm emboli. Patient is here from home with increased confusion that started at 1230 today. Patient here is able to tell me his name and follow commands but is quite confused does not know the date. He has no slurred speech he had a recent right hip fracture surgery on the right hip 3 weeks ago. No known fevers. Related Data Home Medications ?Medication ?Instructions ?Recorded ?Confirmed buspirone 5 mg tablet 5 mg PO TID 06/09/24 02/24/25 hydralazine 100 mg tablet 100 mg PO TID 06/09/24 02/24/25 loperamide 2 mg capsule See Rx Instructions .Route .COMPLEX 06/09/24 02/24/25 mirtazapine 15 mg tablet 7.5 mg PO QPM 06/09/24 02/24/25 ropinirole 0.5 mg tablet 0.5 mg PO QPM 06/09/24 02/24/25 sevelamer carbonate 800 mg tablet See Rx Instructions .Route .COMPLEX 06/09/24 02/24/25 venlafaxine 150 mg 150 mg PO DAILY 06/09/24 02/24/25 capsule,extended release 24 hr sodium bicarbonate 325 mg tablet 325 mg PO DAILY PRN Stomach ACID 09/19/24 02/24/25 vit B,C-folic ac 800 mcg-zinc 12.5 See Rx Instructions .Route .COMPLEX 10/13/24 02/24/25 mg-selen-D3 2,000 unit-vit E tablet (RenaPlex-D) insulin lispro 100 unit/mL See Rx Instructions .Route .COMPLEX 11/13/24 02/24/25 subcutaneous pen megestrol 400 mg/10 mL (40 mg/mL) 400 mg PO DAILY 11/13/24 02/24/25 oral suspension gabapentin 300 mg capsule 300 mg PO BEDTIME 12/03/24 02/24/25 furosemide 40 mg tablet (Lasix) 40 mg PO DAILY 12/27/24 02/24/25 carvedilol 25 mg tablet 25 mg PO TID 02/06/25 02/24/25 clonidine HCl 0.3 mg tablet 0.3 mg PO TID 02/06/25 02/24/25 insulin glargine 100 unit/mL (3 10 unit SUBCUT QPM 02/06/25 02/24/25 mL) subcutaneous pen (Lantus Solostar U-100 Insulin) isosorbide mononitrate 30 mg 30 mg PO DAILY 02/06/25 02/24/25 tablet,extended release 24 hr bumetanide 2 mg tablet 20 mg PO DAILY 02/24/25 02/24/25 lisinopril 20 mg tablet 20 mg PO DAILY 02/24/25 02/24/25 Previous Rx's ?Medication ?Instructions ?Recorded pantoprazole 40 mg tablet,delayed 40 mg PO BIDWM #84 tabs 12/06/24 release apixaban 5 mg tablet (Eliquis) 5 mg PO BID@0900,2100 #60 tabs 12/07/24 clopidogrel 75 mg tablet 75 mg PO DAILY #90 tabs 12/27/24 amlodipine 5 mg tablet 10 mg (2 x 5 mg) PO QPM 30 days 02/10/25 #60 tabs oxycodone 5 mg tablet 5 mg PO Q6H PRN pain 7 days #28 02/19/25 tabs Allergies Allergy/AdvReac Type Severity Reaction Status Date / Time No Known Allergies Allergy Verified 02/19/25 15:12 Review of Systems General: Reports: ROS unobtainable due to mental status PFSH ED PFSH: Medical History Anemia Hypertensive urgency Left ventricular systolic dysfunction (LVSD), NYHA class 3 Chronic hypertension ESRD (end stage renal disease) Diabetic peripheral neuropathy associated with type 2 diabetes mellitus Ingrowing toenail of left foot Hematoma of leg Non-pressure chronic ulcer of 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 Bilateral pes planus Medical non-compliance Closed right trimalleolar fracture Restless leg syndrome Peritonitis CAD (coronary artery disease) Depression End-stage renal disease on peritoneal dialysis Surgical History Hx of CABG Social History Smoking and tobacco/nicotine status: current every day tobacco/nicotine user (medical cannibis) Alcohol intake: never Substance/Drug Use: current Other substance/drug use details: Medical marijuana NIH stroke score NIHSS: Level Of Consciousness - 1a: 0 Level Of Consciousness Questions - 1b: Both Correct Level Of Consciousness Commands - 1c: Both Correct Best Gaze - 2: Normal Visual Enriquez - 3: No Visual Loss Facial Palsy - 4: Normal Motor Arm Right - 5: No Drift Motor Arm Left - 5: No Drift Motor Leg Right - 6: No Drift Motor Leg Left - 6: No Drift Limb Ataxia - 7: Absent Sensory - 8: Normal Best Language - 9: No Aphasia Dysarthia - 10: Normal Extinction And Inattention - 11: 0 Score: Total Score: 0 Physical Exam Const: COMMON NORMALS: alert; negative for patient oriented x3 EXAM LIMITATIONS: altered mental status ORIENTATION/CONSCIOUSNESS: Yes oriented to person; not oriented to place and not oriented to time HENMT: COMMON NORMALS: normocephalic and atraumatic HEAD & SCALP: normocephalic and atraumatic Eye: COMMON NORMALS: conjunctivae normal CONJUNCTIVA: Yes conjunctivae normal Neck/C-Spine: COMMON NORMALS: full ROM and supple Chest: COMMONS NORMALS: normal inspection of the chest Resp: COMMON NORMALS: normal respiratory effort, No retractions, No use of accessory muscles and clear to auscultation bilaterally AUSCULTATION: clear to auscultation bilaterally Cardio: COMMON NORMALS: regular rate, regular rhythm and No murmurs present (Cardio) RATE: regular rate RHYTHM: regular rhythm GI: COMMON NORMALS: Normal to inspection, nondistended, normoactive bowel sounds present, Soft to palpation, non-tender and no masses PALPATION: Yes Soft to palpation Extremity: COMMON NORMALS: normal to inspection and full ROM Neuro: COMMON NORMALS: moves all extremities and no focal motor deficits; negative for patient oriented x3 SENSORIUM/ORIENTATION: Yes alert, Yes oriented to person, No oriented to place and No oriented to time CRANIAL NERVES: Yes CN normal except as noted SPEECH: speech normal MOTOR EXAM: 5/5 motor strength present throughout Psych: COMMON NORMALS: Normal thought process present and cooperative THOUGHT PROCESS: Normal thought process present Skin: COMMON NORMALS: no rashes or lesions noted and no wounds GENERAL SKIN EXAM: no rashes or lesions noted Course Vital Signs: Vital signs: Vital Signs Temperature 97.5 F L 02/24/25 13:49 Pulse Rate 74 02/24/25 15:00 Respiratory Rate 16 02/24/25 13:49 Blood Pressure 213/119 02/24/25 15:00 Pulse Oximetry 92 02/24/25 15:00 Oxygen Delivery Me thod Room Air 02/24/25 15:00 MDM - Neuro Symptoms/Deficit Medical Decision Making 44-year-old here with multiple comorbidities including CHF, hypertension, PE, right hip fracture, end-stage renal disease on dialysis. Patient presented here with confusion notes that started today. Patient has been confused here no focal deficits noted but able to only answer some questions. Head CT CTA here showed no signs of stroke or large vessel occlusion he is not a tPA candidate due to being on Eliquis. Labs showed no significant abnormalities from his baseline white count here was normal no fever no sign of infectious cause. He does have accelerated hypertension had a history of hypertension in the past. Did give him labetalol along with hydralazine with some slight improvement to his blood pressures. Did review his chest x-ray and interpret it showed no acute abnormalities. Did interpret his EKG that showed normal sinus rhythm heart rate [address] elevation QRS 109 QTc 472. Did go over all these findings with family I did speak to hospitalist Dr. Jimenez and will admit for his altered mental status along with his hypertension. critical care time 40 minThe high probability of a clinically significant, sudden or life threatening deterioration of the patient's neuro system(s) required my full and direct attention, intervention and personal management. The critical care time is as shown. This time is in addition to time spent performing any reported procedures but includes the following: [x] Data and vital sign review and interpretation [x] Patient assessment, examination and intervention [x] Documentation [x] Medication orders and management Medical Records I reviewed the patient's medical records. Lab Data I reviewed the patient's lab results. 02/24/25 13:49 02/24/25 13:49 Radiology Impressions Chest X-Ray 02/24/25 13:46 IMPRESSION: No acute findings. Head CT 02/24/25 13:46 IMPRESSION: No acute intracranial findings. ASSESSMENT: ASPECTS (Arlene Stroke Program Early CT Score) is 10. ADDENDUM: 02/24/25 [id number] THIS REPORT CONTAINS FINDINGS THAT MAY BE CRITICAL TO PATIENT CARE. The findings were verbally communicated via telephone conference with HARDY APPIAH at 2:10 PM HERBOLOGIST on 02/24/2025. The findings were acknowledged and understood. Head/Neck CTA 02/24/25 13:46 IMPRESSION: No large vessel stenosis or occlusion. IMPRESSION: 1. Patient motion artifact obscures visualization of vascular structures, most prominently the proximal right ICA. 2. Calcified plaque with approximately 50% stenosis in the proximal right ICA. REFERENCES: NASCET CRITERIA. The degree of stenosis in the cervical segment of the internal carotid artery is based on NASCET criteria. Normal is no stenosis. Mild is less than 50% stenosis. Moderate is 50-69% stenosis. Severe is 70% to 99% stenosis. Total occlusion is no detectable patent lumen. Laboratory Results WBC 9.50 10^3/uL (3.29-11.43) 02/24/25 13:49 RBC 3.35 10^6/uL (3.85-5.65) L 02/24/25 13:49 Hgb 9.70 g/dL (11.27-16.99) L 02/24/25 13:49 Hct 31.1 % (37-53) L 02/24/25 13:49 MCV 92.8 fl (82-101) 02/24/25 13:49 MCH 29.0 pg (27-33) 02/24/25 13:49 MCHC 31.2 g/dL (30-55) 02/24/25 13:49 RDW 16.1 % (12.1-15.1) H 02/24/25 13:49 Plt Count 408 10^3/cmm (157-399) H 02/24/25 13:49 MPV 9.5 fL (7.4-10.4) 02/24/25 13:49 Neut % (Auto) 64.9 % 02/24/25 13:49 Lymph % (Auto) 18.6 % 02/24/25 13:49 [place] % (Auto) 9.6 % 02/24/25 13:49 Eos % (Auto) 5.5 % 02/24/25 13:49 Baso % (Auto) 0.9 % 02/24/25 13:49 Neut # (Auto) 6.16 10^3/uL (1.8-7.7) 02/24/25 13:49 Lymph # (Auto) 1.8 10^3/uL (0.8-4.8) 02/24/25 13:49 [place] # (Auto) 0.9 10^3/uL (0.2-0.9) 02/24/25 13:49 Eos # (Auto) 0.5 10^3/uL (0.0-0.8) 02/24/25 13:49 Baso # (Auto) 0.1 10^3/uL (0.0-0.1) 02/24/25 13:49 Nucleated RBC % (auto) 0 % 02/24/25 13:49 Nucleated RBCs # 0.0 /100WBC 02/24/25 13:49 PT 15.10 SECONDS (12.1-14.9) H 02/24/25 13:49 INR 1.11 (0.8-1.2) 02/24/25 13:49 Sodium 139 mmol/L (136-145) 02/24/25 13:49 Potassium 4.5 mmol/L (3.5-5.1) 02/24/25 13:49 Chloride 94 mmol/L (98-107) L 02/24/25 13:49 Carbon Dioxide 28 mmol/L (22-29) 02/24/25 13:49 Anion Gap 21.5 (5-19) H 02/24/25 13:49 BUN 28 mg/dL (6-20) H 02/24/25 13:49 Creatinine 5.4 mg/dL (0.7-1.2) H 02/24/25 13:49 GFR Calculation 11.5 mL/min (90-130) L 02/24/25 13:49 Glucose 182 mg/dL (65-115) H 02/24/25 13:49 POC Glucose 186 mg/dL (70-110) H 02/24/25 13:52 Calculated Osmolality 298 mOsm/kg (285-295) H 02/24/25 13:49 Calcium 10.3 mg/dL (8.5-10.5) 02/24/25 13:49 Magnesium 2.5 mg/dL (1.7-2.3) H 02/24/25 13:49 Total Bilirubin 0.5 mg/dL (0.15-1.2) 02/24/25 13:49 AST 12 U/L (0-40) 02/24/25 13:49 ALT < 5 U/L (0-41) 02/24/25 13:49 Alkaline Phosphatase 103 U/L (40-130) 02/24/25 13:49 Total Protein 8.1 g/dL (6.6-8.7) 02/24/25 13:49 Albumin 3.9 g/dL (3.5-5.2) 02/24/25 13:49 Globulin 4.2 g/dL (1.3-4.6) 02/24/25 13:49 All radiology interpretation(s) finalized by discharge EKG Data EKG 1: I personally reviewed and interpreted this EKG as follows: EKG interpretation date: 02/24/25 EKG interpretation time: 14:07 Interpretation: nsr hr [address] elevation qrs 109 qtc 472 Critical Care Time Critical Care Time: Critical Care Time: Yes Total Critical Care Time: 40 Attestation: The high probability of a clinically significant, sudden or life threatening deterioration of the patient's neuro system(s) required my full and direct attention, intervention and personal management. The critical care time is as shown. This time is in addition to time spent performing any reported procedures but includes the following: [x] Data and vital sign review and interpretation [x] Patient assessment, examination and intervention [x] Documentation [x] Medication orders and management Discharge Plan Discharge Patient Disposition: Admitted As Inpatient Clinical Impression: ESRD (end stage renal disease) on dialysis, Accelerated hypertension, Altered mental status Condition: Stable Coding Level of Care Code ED Party Plan Sales Consultant for Monik Riley
[2025-02-24 14:20] LABS: Alanine Aminotransferase < 5 U/L (0-41); Albumin Level 3.9 g/dL (3.5-5.2); Alkaline Phosphatase 103 U/L (40-130); Anion Gap 21.5 (5-19); Aspartate Amino Transferase 12 U/L (0-40); Blood Urea Nitrogen 28 mg/dL (6-20); Calcium 10.3 mg/dL (8.5-10.5); Carbon Dioxide 28 mmol/L (22-29); Chloride 94 mmol/L (98-107); Globulin 4.2 g/dL (1.3-4.6); Glucose 182 mg/dL (65-115); Magnesium 2.5 mg/dL (1.7-2.3); Osmolality Calculated 298 mOsm/kg (285-295); Potassium 4.5 mmol/L (3.5-5.1); Sodium 139 mmol/L (136-145); Total Protein 8.1 g/dL (6.6-8.7)
--- NOTE | 2025-02-24 14:51 | PC.PHAR ---
Spouse states they dc'd Calcitriol 0.25mg
[2025-02-24] MEDS: hyDRALAzine 20 mg/mL INJ 1 mL 10 MG IVP (15:05)
--- NOTE | 2025-02-24 15:44 | PM.HP ---
Providers/Chief Complaint Admitting Physician: Canelo Fox MD Primary Care Provider: Yaniv Moe MD Chief Complaint: ams; nausea History of Present Illness Jsoe Guadalupe Claudio is a 44 year old male with a past medical history of pulmonary embolism on Eliquis, drug-eluting stents, type 2 diabetes mellitus CHF, recent history of right hip fracture who presents [facility] for altered mental status. Currently patient is alert to person, not to place, to time he can follow commands, but is diffusely encephalopathic he keeps repeating numbers, but he is able to answer some questions. He denies any pain complaints, no headache, no blurry vision, no headache, but remains diffusely encephalopathic he can follow some commands he is able to squeeze my fingers bilaterally move both legs, has equal entertainer or variety artist strength bilaterally, he is able to smile for me, he is able to track me around the room, pupils are equal round reactive to light, words that he does say I do not notice any slurring of his words or any facial droop, no family members at bedside, hypertensive blood pressure 173/108, pulse 78, respirate 16, temperature 97.5 100% on room air Review of Systems General: Reports: ROS unobtainable due to mental status Medications/Allergies Home Medications ?Medication ?Instructions ?Recorded ?Confirmed ?Last Taken ?Type buspirone 5 mg tablet 5 mg PO TID 06/09/24 02/24/25 02/23/25 History hydralazine 100 mg tablet 100 mg PO TID 06/09/24 02/24/25 02/23/25 History loperamide 2 mg capsule See Rx Instructions .Route .COMPLEX 06/09/24 02/24/25 02/23/25 History mirtazapine 15 mg tablet 7.5 mg PO QPM 06/09/24 02/24/25 02/23/25 History ropinirole 0.5 mg tablet 0.5 mg PO QPM 06/09/24 02/24/25 02/23/25 History sevelamer carbonate 800 mg tablet See Rx Instructions .Route .COMPLEX 06/09/24 02/24/25 02/23/25 History venlafaxine 150 mg 150 mg PO DAILY 06/09/24 02/24/25 02/23/25 History capsule,extended release 24 hr sodium bicarbonate 325 mg tablet 325 mg PO DAILY PRN Stomach ACID 09/19/24 02/24/25 12/03/24 07:00 History vit B,C-folic ac 800 mcg-zinc 12.5 See Rx Instructions .Route .COMPLEX 10/13/24 02/24/25 02/04/25 History mg-selen-D3 2,000 unit-vit E tablet (RenaPlex-D) insulin lispro 100 unit/mL See Rx Instructions .Route .COMPLEX 11/13/24 02/24/25 02/23/25 History subcutaneous pen megestrol 400 mg/10 mL (40 mg/mL) 400 mg PO DAILY 11/13/24 02/24/25 02/23/25 History oral suspension gabapentin 300 mg capsule 300 mg PO BEDTIME 12/03/24 02/24/25 02/23/25 History pantoprazole 40 mg tablet,delayed 40 mg PO BIDWM #84 tabs 12/06/24 02/24/25 02/23/25 Rx release apixaban 5 mg tablet (Eliquis) 5 mg PO BID@0900,2100 #60 tabs 12/07/24 02/24/25 02/23/25 Rx clopidogrel 75 mg tablet 75 mg PO DAILY #90 tabs 12/27/24 02/24/25 02/23/25 Rx furosemide 40 mg tablet (Lasix) 40 mg PO DAILY 12/27/24 02/24/25 02/05/25 History carvedilol 25 mg tablet 25 mg PO TID 02/06/25 02/24/25 02/23/25 History clonidine HCl 0.3 mg tablet 0.3 mg PO TID 02/06/25 02/24/25 02/23/25 History insulin glargine 100 unit/mL (3 10 unit SUBCUT QPM 02/06/25 02/24/25 02/23/25 History mL) subcutaneous pen (Lantus Solostar U-100 Insulin) isosorbide mononitrate 30 mg 30 mg PO DAILY 02/06/25 02/24/25 02/23/25 History tablet,extended release 24 hr amlodipine 5 mg tablet 10 mg (2 x 5 mg) PO QPM 30 days 02/10/25 02/24/25 02/23/25 Rx #60 tabs oxycodone 5 mg tablet 5 mg PO Q6H PRN pain 7 days #28 11/11/25 11/16/25 Unknown Rx tabs bumetanide 2 mg tablet 20 mg PO DAILY 02/24/25 02/24/25 Unknown History lisinopril 20 mg tablet 20 mg PO DAILY 02/24/25 02/24/25 02/23/25 History Allergies Allergy/AdvReac Type Severity Reaction Status Date / Time No Known Allergies Allergy Verified 02/19/25 15:12 PFSH Acute PFSH: Medical History Anemia Hypertensive urgency Left ventricular systolic dysfunction (LVSD), NYHA class 3 Chronic hypertension ESRD (end stage renal disease) Diabetic peripheral neuropathy associated with type 2 diabetes mellitus Ingrowing toenail of left foot Hematoma of leg Non-pressure chronic ulcer of 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 Bilateral pes planus Medical non-compliance Closed right trimalleolar fracture Restless leg syndrome Peritonitis CAD (coronary artery disease) Depression End-stage renal disease on peritoneal dialysis Surgical History Hx of CABG Social History Smoking and tobacco/nicotine status: current every day tobacco/nicotine user (medical cannibis) Alcohol intake: never Substance/Drug Use: current Other substance/drug use details: Medical marijuana Vitals/I&O/Wt Last Vital Signs Temp 97.5 F L 02/24/25 13:49 Pulse 75 02/24/25 15:30 Resp 16 02/24/25 13:49 BP 173/108 02/24/25 15:30 Pulse Ox 100 02/24/25 15:30 O2 Del Method Room Air 02/24/25 15:10 Physical Exam Const: COMMON NORMALS: no acute distress ORIENTATION/CONSCIOUSNESS: Yes awake, Yes oriented to person and Yes confused; not oriented to place and not oriented to time HENMT: COMMON NORMALS: normocephalic HEAD & SCALP: normocephalic Eye: COMMON NORMALS: Equal, round and reactive pupils present Neck/C-Spine: COMMON NORMALS: no meningeal signs and no JVD Lymph: LYMPHATIC: no lymphadenopathy noted Resp: COMMON NORMALS: normal respiratory effort, No retractions, No use of accessory muscles and clear to auscultation bilaterally AUSCULTATION: clear to auscultation bilaterally Cardio: COMMON NORMALS: regular rate, regular rhythm, S1 normal heart sound present and S2 normal heart sound present RATE: regular rate RHYTHM: regular rhythm HEART SOUNDS: S1 normal heart sound present and S2 normal heart sound present GI: COMMON NORMALS: Normal to inspection, nondistended, normoactive bowel sounds present, Soft to palpation and non-tender : COMMON NORMALS: Yes no CVA tenderness Extremity: COMMON NORMALS: no calf tenderness and no pedal edema Neuro: COMMON NORMALS: moves all extremities and no focal motor deficits OTHER: Does not follow extensive neurologic testing due to altered mental status, global encephalopathy Data 02/24/25 13:49 02/24/25 13:49 A&P Assessment and plan 1. Acute encephalopathy: 2. Hypertensive urgency: Plan: Acute metabolic encephalopathy CT head FINDINGS: Brain: No intracranial hemorrhage. There is global parenchymal volume loss. Periventricular white matter hypoattenuation is nonspecific but most likely due to small vessel disease. No evidence of acute territorial infarct or cerebral edema. No mass effect or midline shift. Nonacute lacunar infarct left basal ganglia. Cerebral ventricles: Prominent ventricles likely secondary to volume loss. Paranasal sinuses: Visualized sinuses are unremarkable. No fluid levels. Mastoid air cells: Visualized mastoid air cells are well aerated. Bones: Unremarkable. No acute fracture. Soft tissues: Unremarkable. CTA head and neck CT/CT angio headneck* [id number] IMPRESSION: No large vessel stenosis or occlusion. IMPRESSION: 1. Patient motion artifact obscures visualization of vascular structures, most prominently the proximal right ICA. 2. Calcified plaque with approximately 50% stenosis in the proximal right ICA. -Iron studies - UA pending - Chest x-ray no focal pneumonia -Blood cultures -TSH -Ammonia level -ESR, CRP, Pro-Yao pending - No nuchal rigidity, Kernig sign negative, brudunki sign negative - Blood pressure 173/108, could be hypertensive encephalopathy? - No clinical features associate with strokelike symptoms, nonetheless is on Eliquis, Plavix Plan - Neurochecks, no stroke scale - Workup as above - Start Cardene drip - Resume home blood pressure medications -Acute on chronic anemia, monitor - Full code - Eliquis for DVT prophylaxis PDMP PDMP Reviewed: Not Reviewed Attestations Medical Necessity Statement*: Patient requires hospitalization for acute encephalopathy, inpatient, greater than 2 midnights Diagnoses Acute encephalopathy G93.40 Hypertensive urgency I16.0
--- NOTE | 2025-02-24 15:58 | PC.NURSE ---
Patient transferred from ED to CSU via a bed at 1555.
[2025-02-24 16:09] LABS: Lactic Sepsis W/Reflex 1.4 mmol/L (0.5-2.2)
[2025-02-24 16:13] LABS: Procalcitonin 0.57 ng/mL (0-0.5)
[2025-02-24 16:43] LABS: Ammonia 21 umol/L (16-60)
--- NOTE | 2025-02-24 16:44 | PC.NURSE ---
Patient refusing to try to complete the NIH stroke scale.
[2025-02-24 16:52] LABS: Troponin(5th) Baseline 307 ng/L (0-15)
[2025-02-24 16:53] LABS: Iron 58 ug/dL (59-158); Thyroid Stimulating Hormone 3.62 uIU/mL (0.27-4.20); Total Iron Binding Capacity 144 mcg/dl; Unsaturated Iron Binding 86 ug/dL (112-347)
[2025-02-24 17:07] LABS: Ferritin 2158 ng/mL (30-400)
--- NOTE | 2025-02-24 17:29 | PC.NURSE ---
Nursing held selelamer 800mg at 1700 due to patient unable to take large pills at this time. He is also NPO. Patient was able to swallow the small pills with applesauce.
--- NOTE | 2025-02-24 17:37 | ECG_ITS ---
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 Measurements Intervals [place] Rate: 78 P: 61 UT: 160 QRS: 61 QRSD: 107 T: 46 QT: 465 QTc: 533 Interpretive Statements SINUS RHYTHM POSSIBLE LEFT ATRIAL ENLARGEMENT [-0.1mV P-WAVE IN V1/V2] SEPTAL MYOCARDIAL INFARCTION , PROBABLY OLD [40+ ms Q WAVE IN V1/V2] Compared to ECG 02/24/2025 14:07:26 NO SIGNIFICANT CHANGE Electronically Signed On 02-24-2025 17:45:56 EARTH OBSERVATIONS CHIEF SCIENTIST by Jerald Garza M.D. [id number]
--- NOTE | 2025-02-24 18:21 | USCV_ITS ---
Jose Guadalupe Claudio Age: 44 Gender: M : 1980 Exam Date: 02/24/2025 18:48 Ordering Phys: Canelo Fox MD Technologist: Marlon Serna Exam Location: [facility] Indication: nstemi BP: 172 / 102 HR: 66 Rhythm: Other Technical Quality: Adequate MEASUREMENTS (Male / Female) Normal Values 2D ECHO LV Diastolic Diameter PLAX 5.1 cm 4.2 - 5.9 / 3.9 - 5.3 cm IVS Diastolic Thickness 0.8 cm 0.6 - 1.0 / 0.6 - 0.9 cm IVS Systolic Thickness 1.0 cm LVPW Diastolic Thickness 0.8 cm 0.6 - 1.0 / 0.6 - 0.9 cm LVPW Systolic Thickness 1.2 cm LVOT Diameter 2.0 cm LV Ejection Fraction 2D Teich 39.1 % LV Ejection Fraction MOD 4C 68.0 % LV Ejection Fraction MOD 2C 74.1 % LV Ejection Fraction 2C AL 73.2 % LA Diameter 4.2 cm RA Systolic Volume 4C AL 17.4 ml RA Systolic Volume 4C MOD 16.8 ml LA Sys Volume AL 55.4 cm cubed LA Sys Volume Index AL 28.5 cm cubed/m squared Aorta at Sinotubular Diameter 2.2 cm IVC Diameter 1.4 cm M-MODE LA Ao Ratio MM 1.4 AV Cusp Separation MM 1.6 cm DOPPLER AV Peak Velocity 168.0 cm/s LVOT Peak Velocity 89.0 cm/s AV Area Cont Eq vti 1.8 cm squared AV Area Cont Eq pk 1.7 cm squared MV Peak Velocity 99.0 cm/s MV Area PHT 4.0 cm squared Mitral E to A Ratio 0.9 TV Peak Velocity 87.3 cm/s TR Peak Velocity 127.0 cm/s TR Peak Gradient 6.5 mmHg TR Mean Velocity 82.0 cm/s TR Mean Gradient 3.4 mmHg TR Velocity Time Integral 22.1 cm PV Peak Velocity 125.0 cm/s RV Ejection Time 0.3 s FINDINGS Left Ventricle Normal left ventricular size. Severe hypokinesis of the mid and basal inferoseptal, inferior and inferolateral wall segments with a mildly reduced EF of 50%. Grade II/IV diastolic dysfunction, moderately elevated filling pressures. Normal LV wall thickness. Right Ventricle Normal right ventricular size and systolic function. Right Atrium Normal right atrial size. Left Atrium Normal left atrial size. IA Septum Normal appearance of the interatrial septum. Mitral Valve Normal mitral valve structure. Mild regurgitation. Aortic Valve Normal aortic valve structure. No aortic valve stenosis or regurgitation. Tricuspid Valve Normal tricuspid valve structure. Trace regurgitation. Normal pulmonary pressure. Pulmonic Valve Normal pulmonic valve structure. No pulmonic valve stenosis or regurgitation. Pericardium No pericardial effusion. Aorta Normal diameter of the aortic root and ascending thoracic aorta. IVC Normal IVC diameter. CONCLUSIONS Normal left ventricular size. Severe hypokinesis of the mid and basal inferoseptal, inferior and inferolateral wall segments with a mildly reduced EF of 50%. Grade II/IV LV diastolic dysfunction, moderately elevated filling pressures. Normal right ventricular size and systolic function Mild mitral valve regurgitation Jerald Garza MD, FACC (Electronically Signed) Final Date: 25 February 2025 13:34 S
[2025-02-24 18:34] LABS: Respiratory Syncytial Virus Ce NEGATIVE (Negative); SARS-CoV-2 PCR NEGATIVE (Negative)
[2025-02-24 19:01] LABS: Troponin 5 2HR 323.8 ng/L (0-15); Troponin 5 2HR Delta 16.8 ABS# (0-10)
[2025-02-24] MEDS: morphine 4 mg/mL SDV 1 mL 2 MG IVP (19:24)
--- NOTE | 2025-02-24 19:58 | XRR_ITS ---
PROCEDURE INFORMATION: Exam: XR Right Hip Exam date and time: 02/24/2025 9:08 PM Age: 44 years old Clinical indication: Right hip; Prior surgery; Surgery date: <1 month; Surgery type: RT troch nail 02/08/2025; C/O RT hip pain. RT troch nail performed 02/08/2025. TECHNIQUE: Imaging protocol: Radiologic exam of the right hip. Views: 1 view hip with pelvis when performed. COMPARISON: CR XR hip RT 2-3V wo/w pel* [id number] 02/19/2025 3:32 PM FINDINGS: Bones/joints: Healing intertrochanteric fracture status post right femoral intramedullary deandra and transverse intertrochanteric fixation screw. Hardware intact. Soft tissues: Unremarkable. Vasculature: Vascular calcifications. XR/XR hip RT 2-3V wo/w pel* [id number] IMPRESSION: Healing intertrochanteric fracture status post right femoral intramedullary deandra and transverse intertrochanteric fixation screw. Hardware intact.
[2025-02-24] MEDS: nicardipine 20 MG/200 ML PREMIX 50 MG IV (20:07)
[2025-02-24] MEDS: piperacillin-tazobactam 3.375 GM in sodium chloride 0.9% (plus) 50 ML IV (20:23)
--- NOTE | 2025-02-24 22:32 | ECG_ITS ---
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 Measurements Intervals [place] Rate: 86 P: 70 [place]: 160 QRS: 64 QRSD: 101 T: 56 QT: 418 QTc: 500 Interpretive Statements SINUS RHYTHM POSSIBLE LEFT ATRIAL ENLARGEMENT [-0.1mV P-WAVE IN V1/V2] ANTEROSEPTAL MYOCARDIAL INFARCTION , OF INDETERMINATE AGE [40+ ms Q WAVE IN V1-V4] Compared to ECG 02/24/2025 17:37:18 No significant changes Electronically Signed On 02-28-2025 00:27:36 MODEL SET ARTIST by Ursula Lyn M.D. [email or web address] [id number]
[2025-02-24 23:04] LABS: Troponin 5 6HR 326.2 ng/L (0-15); Troponin 5 6HR Delta 19.2 ng/L (0-12)
[2025-02-25] VITALS (30 sets, daily range): BP systolic 107–190; BP diastolic 68–127; PULSE 73–109; RESP 8–24; TEMP 36.1–36.9; O2SAT 91–100
[2025-02-25] MEDS: nicardipine 20 MG/200 ML PREMIX 30 MG IV ×3 (01:41→21:23)
[2025-02-25] MEDS: morphine 4 mg/mL SDV 1 mL 2 MG IVP ×5 (03:30→22:15)
[2025-02-25 03:53] LABS: Hematocrit 29.4 % (37-53); Hemoglobin 9.20 g/dL (11.27-16.99); Mean Corpuscular HGB Conc 31.3 g/dL (30-55); Mean Corpuscular Hemoglobin 28.9 pg (27-33); Mean Corpuscular Volume 92.5 fl (82-101); Nucleated Red Blood Cells % 0 %; Platelet Count 362 10^3/cmm (157-399); Red Blood Count 3.18 10^6/uL (3.85-5.65); White Blood Count 12.09 10^3/uL (3.29-11.43)
[2025-02-25 04:15] LABS: Alanine Aminotransferase < 5 U/L (0-41); Albumin Level 3.5 g/dL (3.5-5.2); Alkaline Phosphatase 97 U/L (40-130); Anion Gap 23.9 (5-19); Aspartate Amino Transferase 12 U/L (0-40); Blood Urea Nitrogen 30 mg/dL (6-20); Calcium 10.1 mg/dL (8.5-10.5); Carbon Dioxide 26 mmol/L (22-29); Chloride 96 mmol/L (98-107); Globulin 4.0 g/dL (1.3-4.6); Glucose 148 mg/dL (65-115); Magnesium 2.5 mg/dL (1.7-2.3); Osmolality Calculated 301 mOsm/kg (285-295); Potassium 4.9 mmol/L (3.5-5.1); Sodium 141 mmol/L (136-145); Total Protein 7.5 g/dL (6.6-8.7)
[2025-02-25] MEDS: piperacillin-tazobactam 3.375 GM in sodium chloride 0.9% (plus) 50 ML IV ×2 (07:42→20:18)
--- NOTE | 2025-02-25 08:31 | PHA.VACGOAL ---
Vancomycin Goal - Goal Vancomycin Goal:: 15-20 mg/L Vancomycin Indication:: Other - Therapy Current therapy:: Pip/Tazo Day of therpy:: Day []of [] . Actual body weight (kg): 160 lb 0.889 oz - Data Labs: WBC 12.09 10^3/uL (3.29-11.43) H 02/25/25 03:20 RBC 3.18 10^6/uL (3.85-5.65) L 02/25/25 03:20 Hgb 9.20 g/dL (11.27-16.99) L 02/25/25 03:20 Hct 29.4 % (37-53) L 02/25/25 03:20 MCV 92.5 fl (82-101) 02/25/25 03:20 MCH 28.9 pg (27-33) 02/25/25 03:20 MCHC 31.3 g/dL (30-55) 02/25/25 03:20 RDW 16.1 % (12.1-15.1) H 02/25/25 03:20 Sodium 141 mmol/L (136-145) 02/25/25 03:20 Potassium 4.9 mmol/L (3.5-5.1) 02/25/25 03:20 Chloride 96 mmol/L (98-107) L 02/25/25 03:20 Carbon Dioxide 26 mmol/L (22-29) 02/25/25 03:20 Anion Gap 23.9 (5-19) H 02/25/25 03:20 BUN 30 mg/dL (6-20) H 02/25/25 03:20 Creatinine 6.1 mg/dL (0.7-1.2) H* 02/25/25 03:20 GFR Calculation 10.0 mL/min (90-130) L 02/25/25 03:20 Last dialysis session:: N/A Treatment plan:: new consult Regimen:: LOADING DOSE OF 1000 MG X1. PLAN TO PULSE DOSE DUE TO RENAL FUNCTION. Follow up:: ASHU FERRIS 02/25 @1999
--- NOTE | 2025-02-25 08:55 | PC.NURSE ---
Provider is at bedside and nursing updated about PO medications and not giving. Provider okay's due to is altered mental stasis. Provider updated that nursing will try and get his Eliquis in him.
--- NOTE | 2025-02-25 09:16 | P.CONIM_ITS ---
Providers/Reason For Consult 2 Consulting Physician/Specialty*: telenephrology/ brody singh md Reason for Consult*: ESRD Requesting Physician: Dr Canelo Fox Attending Physician: Canelo Fox MD Primary Care Provider: Yaniv Moe MD History of Present Illness History of Present Illness Jose Guadalupe Claudio is a 44 year old male with a past medical history of pulmonary embolism on Eliquis, drug-eluting stents, type 2 diabetes mellitus CHF, recent history of right hip fracture who presents [facility] for altered mental status. He is currently mumbling and unable to give me a history he moves a little he does look at the camera he is slurring. I am unable to get any further history. Patient had multiple CT scans yesterday Review of Systems 2 Narrative: Confused and mumbling unable to obtain a review of systems per the nurse the patient family stated that he did do dialysis on February 22. Medications/Allergies Home Medications ?Medication ?Instructions ?Recorded ?Confirmed ?Last Taken ?Type buspirone 5 mg tablet 5 mg PO TID 06/09/24 5 02/23/25 History hydralazine 100 mg tablet 100 mg PO TID 06/09/2402/2402/23/25 History loperamide 2 mg capsule See Rx Instructions .Route . COMPLEX 06/09/24 02/24/25 02/23/25 History mirtazapine 15 mg tablet 7.5 mg PO QPM 06/09/2402/2402/23/25 History ropinirole 0.5 mg tablet 0.5 mg PO QPM 06/09/2402/2402/23/25 History sevelamer carbonate 800 mg tablet See Rx Instructions .Route .COMPLEX 06/09/24 02/24/25 02/23/25 History venlafaxine 150 mg 150 mg PO DAILY 06/09/2402/23/25 History capsule,extended release 24 hr sodium bicarbonate 325 mg tablet 325 mg PO DAILY PRN S tomach ACID 09/19/24 02/24/25 12/03/24 07:00 History vit B,C-folic ac 800 mcg-zinc 12.5 See Rx Instructions .Route .COMPLEX 10/13/24 02/24/25 02/04/25 History mg-selen-D3 2,000 unit-vit E tablet (RenaPlex-D) insulin lispro 100 unit/mL See Rx Instructions .Route .COMPLEX 11/13/24 02/24/25 02/23/25 History subcutaneous pen megestrol 400 mg/10 mL (40 mg/mL) 400 mg PO DAILY 09/0202/24/25 02/23/25 History oral suspension gabapentin 300 mg capsule 300 mg PO BEDTIME 12/03/24 1 04/26/24 02/23/25 History pantoprazole 40 mg tablet,delayed 40 mg PO BIDWM #84 t abs 12/06/24 02/24/25 02/23/25 Rx release apixaban 5 mg tablet (Eliquis) 5 mg PO BID@0900,2100 # 60 tabs 12/07/24 02/24/25 02/23/25 Rx clopidogrel 75 mg tablet 75 mg PO DAILY #90 tabs 12/1002/24/25 02/23/25 Rx furosemide 40 mg tablet (Lasix) 40 mg PO DAILY 5 02/24/25 02/05/25 History carvedilol 25 mg tablet 25 mg PO TID 02/06/2502/23/25 History clonidine HCl 0.3 mg tablet 0.3 mg PO TID 02/06/2502/23/25 History insulin glargine 100 unit/mL (3 10 unit SUBCUT QPM 02/24/25 02/23/25 History mL) subcutaneous pen (Lantus Solostar U-100 Insulin) isosorbide mononitrate 30 mg 30 mg PO DAILY 02/06/25 1 04/26/24 02/23/25 History tablet,extended release 24 hr amlodipine 5 mg tablet 10 mg (2 x 5 mg) PO QPM 30 d ays 02/10/25 02/24/25 02/23/25 Rx #60 tabs oxycodone 5 mg tablet 5 mg PO Q6H PRN pain 7 days #28 02/19/25 02/24/25 Unknown Rx tabs bumetanide 2 mg tablet 20 mg PO DAILY 02/24/2502/09 Unknown History lisinopril 20 mg tablet 20 mg PO DAILY 02/24/2502/09/25 History Allergies Allergy/AdvReac Type Severity Reaction Status Date / Time No Known Allergies Allergy Verified 02/19/25 15:12 Current Medications Generic Name Dose Route Start Last Admin Trade Name Ever PRN Reason Stop Dose Admin Amlodipine Besylate 10 mg 02/24/25 17:00 02/24/25 17:10 Amlodipine 5 Mg Tablet PO 10 mg QPM JAQUELINE Administration Apixaban 5 mg 02/24/25 21:00 02/25/25 08:58 Apixaban 5 Mg Tablet PO 5 mg BID@0900,2100 [facility] Administration Buspirone HCl 5 mg 02/24/25 21:00 02/25/25 05:07 Buspirone 5 Mg Tablet PO Not Given TID [facility] Carvedilol 25 mg 02/24/25 17:00 02/25/25 05:07 Carvedilol 25 Mg Tablet PO Not Given BID [facility] Clonidine HCl 0.3 mg 02/24/25 21:00 02/25/25 05:07 Clonidine 0.1 Mg Tablet PO Not Given TID [facility] Clopidogrel Bisulfate 75 mg 02/25/25 05:00 02/25/25 05:07 Clopidogrel 75 Mg Tablet PO Not Given DAILY [facility] Furosemide 40 mg 02/25/25 05:00 02/25/25 05:08 Furosemide 40 Mg Tablet PO Not Given DAILY [facility] Gabapentin 300 mg 02/24/25 21:00 02/24/25 21:34 Gabapentin 300 Mg Capsule PO Not Given BEDTIME [facility] Hydralazine HCl 100 mg 02/24/25 21:00 02/25/25 05:08 Hydralazine 50 Mg Tablet PO Not Given TID [facility] Nicardipine/Sodium Chloride 20 mg in 200 mls @ 0 mls/hr 02/24/25 15:45 02/25/25 07:39 Cardene IV 3 mg/hr .Q0M JAQUELINE 30 mls/hr Protocol Administration Per Protocol Piperacillin Sod/Tazobactam 50 mls @ 12.5 mls/hr 02/24/25 19:30 02/25/25 07:42 Sod 3.375 gm/ Sodium Chloride IV 12.5 mls/hr Q12H JAQUELINE Administration Insulin Human Lispro 0 unit 02/24/25 18:00 02/25/25 08:55 Insulin Lispro 100 Unit/1 Ml SUBCUT Not Given TIDWM [facility] Protocol Isosorbide Mononitrate 30 mg 02/25/25 05:00 02/25/25 05:08 Isosorbide Mononitrate Er 30 Mg Tablet PO Not Given DAILY JAQUELINE Mirtazapine 7.5 mg 02/24/25 17:00 02/24/25 17:10 Mirtazapine 15 Mg Tablet PO 7.5 mg QPM JAQUELINE Administration Morphine Sulfate 2 mg 02/24/25 15:56 02/25/25 09:07 Morphine 4 Mg/Ml Sdv 1 Ml IVP 2 mg Q4H PRN Administration SEVERE PAIN Pantoprazole Sodium 40 mg 02/24/25 18:00 02/25/25 08:[address] 40 Mg Tablet PO Not Given BIDWM JAQUELINE Ropinirole HCl 0.5 mg 02/24/25 17:00 02/24/25 17:10 Ropinirole 1 Mg Tablet PO 0.5 mg QPM JAQUELINE Administration Sevelamer Carbonate 800 mg 02/24/25 18:00 02/25/25 08:55 Sevelamer 800 Mg Tablet PO Not Given BIDWM JAQUELINE Venlafaxine HCl 150 mg 02/25/25 05:00 02/25/25 05:08 Venlafaxine Er (24hr) 150 Mg Capsule PO Not Given DAILY JAQUELINE PFSH Acute 2 PFSH: Medical History (Updated 02/24/25 @ 15:49 by Canelo Fox MD) Anemia Hypertensive urgency Left ventricular systolic dysfunction (LVSD), NYHA class 3 Chronic hypertension ESRD (end stage renal disease) Diabetic peripheral neuropathy associated with type 2 diabetes mellitus Ingrowing toenail of left foot Hematoma of leg Non-pressure chronic ulcer of 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 Bilateral pes planus Medical non-compliance Closed right trimalleolar fracture Restless leg syndrome Peritonitis CAD (coronary artery disease) Depression End-stage renal disease on peritoneal dialysis Surgical History Hx of CABG Social History Smoking and tobacco/nicotine status: current every day tobacco/nicotine user (medical cannibis) Alcohol intake: never Substance/Drug Use: current Other substance/drug use details: Medical marijuana Vitals/I&O/Wt Last Vital Signs Temp 97 F L 02/25/25 08:00 Pulse 89 02/25/25 08:00 Resp 14 02/25/25 09:07 BP 174/100 02/25/25 08:00 Pulse Ox 94 02/25/25 09:07 O2 Del Method Room Air 02/25/25 08:00 02/24/25 02/25/25 02/25/25 22:59 06:59 14:59 Intake Total 270 / 270 205 / 475 179 / 179 Balance 270 / 270 205 / 475 179 / 179 Weight last 48 hrs Weight 72.6 kg Weight 74.5 kg Physical Exam 2 Narrative: Patient is comfortable in bed blood pressure elevated. No respiratory distress. His pupils are reactive Neck is supple Lungs have good air movement Heart regular Anterior chest wall right sided permacath Abdomen is soft positive bowel sounds. Extremities no significant edema. Neuro awake confused mumbling not answering questions appropriately. Data 02/25/25 03:20 02/25/25 03:20 Micro: Microbiology 02/24/25 16:11 Blood Culture - Preliminary Blood SPECIMEN COLLECTED 02/24/25 16:10 Blood Culture - Preliminary Blood SPECIMEN COLLECTED A&P Assessment and plan 1. ESRD (end stage renal disease) on dialysis: 44-year-old manwith a past medical history of pulmonary embolism on Eliquis, drug-eluting stents, type 2 diabetes mellitus CHF, recent history of right hip fracture who presents [facility] for altered mental status. 1. End-stage renal disease patient on dialysis Tuesday and Tuesday. Will dialyze the patient today. We want to see if the patient's mental status improves with dialysis if they can remove medications or if patient is having uremic symptoms however BUN is not elevated. Consider neurology evaluation. 2. Hypertensive urgency will attempt to decrease his blood pressure with dialysis and medications. 3. Altered mental status will try to limit medications. 4. Anemia hemoglobin 9.2 will monitor check iron studies. Patient was seen and examined using audiovisual equipment as a telehealth visit. Patient is confused and unable to consent at this time. Plan: See above PDMP PDMP Reviewed: Not Reviewed Consult Attestations 2 Medical Necessity Statement: Altered mental status hypertensive urgency end-stage renal disease Time Spent in Patient Care: Greater than 35 minutes (>than 50% of time spent in counselling and/or direct pt care on unit) . Coding Level of Care Code Acute Code for Chg Fwd Diagnoses ESRD (end stage renal disease) on dialysis N18.6; Z99.2
[2025-02-25 09:30] LABS: Troponin T (5th) Once 330 ng/L (0-15)
--- NOTE | 2025-02-25 09:42 | CT_ITS ---
WS: [id number] CT CHEST, ABDOMEN, AND PELVIS TECHNIQUE: Contrast-enhanced CT of the chest, abdomen, and pelvis with coronal and sagittal reformatted images. CLINICAL INFORMATION: ams, infection? source unclear DLP: 1407.[address] scans at [facility] use at least one of these dose optimization techniques: automated exposure control; mA and/or kV adjustment per patient size (includes targeted exams where dose is matched to clinical indication); or iterative reconstruction. CT CHEST: Lungs are well aerated. No acute pulmonary infiltrates. No focal pneumonia or pleural fluid. Cardiomegaly. Sternotomy. Aortic calcification. Dense coronary calcification. No mediastinal or hilar lymphadenopathy. No axillary lymphadenopathy. Small esophageal hiatal hernia. CT ABDOMEN AND PELVIS: Normal noncontrast liver and spleen. Small esophageal hiatal hernia. Fluid distended stomach with air-fluid level. Splenic artery calcification. Adrenal glands are normal. No hydronephrosis. Bilateral renal atrophy. Dense vascular calcification. Mild fluid distention of the gallbladder. No gallbladder wall thickening or pericholecystic fluid. Normal appendix. Tiny fat-containing umbilical hernia. Chronic appearing compression L1 vertebral body. CT/CT chest abdpel w/*[id number] IMPRESSION: 1. No acute chest findings. 2. Fluid distended stomach with air-fluid level. 3. Mild fluid distention of the gallbladder. No gallbladder wall thickening or pericholecystic fluid. 4. Bilateral renal atrophy. No hydronephrosis. 5. No acute findings in the abdomen or pelvis.
[2025-02-25 09:59] LABS: Calcium 9.7 mg/dL (8.5-10.5)
[2025-02-25 10:06] LABS: Hepatitis B Surface Antigen Non-Reactive (Nonreactive)
[2025-02-25 10:07] LABS: Iron 59 ug/dL (59-158); Thyroid Stimulating Hormone 4.08 uIU/mL (0.27-4.20); Total Iron Binding Capacity 148 mcg/dl; Unsaturated Iron Binding 89 ug/dL (112-347); Uric Acid 6.0 mg/dL (3.4-7.0); Vitamin B12 441 pg/mL (232-1245)
[2025-02-25 10:19] LABS: Ferritin 2161 ng/mL (30-400)
[2025-02-25] MEDS: iohexol 350 mg/mL 500 mL Btl (per mL) IV (11:49)
[2025-02-25] MEDS: nicardipine 20 MG/200 ML PREMIX 50 MG IV ×2 (13:17→17:18)
--- NOTE | 2025-02-25 13:25 | P.PN_ITS ---
Subjective 2 Subjective: Patient was seen this morning, he is alert to person, not to place, to time, he does awaken, to follow commands such as swallowing further he moves bilateral upper and lower extremities, remains diffusely encephalopathic, afebrile overnight, normotensive Vitals/I&O/Wt Last Vital Signs Temp 97.2 F L 02/25/25 11:18 Pulse 103 H 02/25/25 11:18 Resp 12 02/25/25 13:04 BP 184/101 02/25/25 13:00 Pulse Ox 95 02/25/25 13:04 O2 Del Method Room Air 02/25/25 11:18 02/24/25 02/25/25 02/25/25 22:59 06:59 14:59 Intake Total 270 / 270 205 / 475 429 / 429 Balance 270 / 270 205 / 475 429 / 429 Weight last 48 hrs Weight 72.6 kg Weight 74.5 kg Physical Exam 2 Const: COMMON NORMALS: no acute distress ORIENTATION/CONSCIOUSNESS: Yes awake, Yes oriented to person and Yes confused; not oriented to place and not oriented to time Eye: COMMON NORMALS: Equal, round and reactive pupils present PUPIL: Yes Equal, round and reactive pupils present Resp: COMMON NORMALS: normal respiratory effort, No retractions, No use of accessory muscles and clear to auscultation bilaterally AUSCULTATION: clear to auscultation bilaterally Cardio: COMMON NORMALS: regular rate, regular rhythm, S1 normal heart sound present and S2 normal heart sound present RATE: regular rate RHYTHM: r egular rhythm HEART SOUNDS: S1 normal heart sound present and S2 normal heart sound present GI: COMMON NORMALS: Normal to inspection, nondistended, normoactive bowel sounds present and non-tender Extremity: COMMON NORMALS: no pedal edema Neuro: SENSORIUM/ORIENTATION: Yes oriented to person, No oriented to place and No oriented to time Data 02/25/25 03:20 02/25/25 03:20 Micro: Microbiology 02/24/25 16:11 Blood Culture - Preliminary Blood SPECIMEN COLLECTED 02/24/25 16:10 Blood Culture - Preliminary Blood SPECIMEN COLLECTED A&P Assessment and plan 1. Acute encephalopathy: 2. Hypertensive urgency: Plan: Acute metabolic encephalopathy CT head FINDINGS: Brain: No intracranial hemorrhage. There is global parenchymal volume loss. Periventricular white matter hypoattenuation is nonspecific but most likely due to small vessel disease. No evidence of acute territorial infarct or cerebral edema. No mass effect or midline shift. Nonacute lacunar infarct left basal ganglia. Cerebral ventricles: Prominent ventricles likely secondary to volume loss. Paranasal sinuses: Visualized sinuses are unremarkable. No fluid levels. Mastoid air cells: Visualized mastoid air cells are well aerated. Bones: Unremarkable. No acute fracture. Soft tissues: Unremarkable. CTA head and neck CT/CT angio headneck* [id number] IMPRESSION: No large vessel stenosis or occlusion. IMPRESSION: 1. Patient motion artifact obscures visualization of vascular structures, most prominently the proximal right ICA. 2. Calcified plaque with approximately 50% stenosis in the proximal right ICA. -Iron studies ferritin 2161, iron 59 - UA pending - Chest x-ray no focal pneumonia -Blood cultures pending -TSH 4 -Ammonia level 21 -ESR 87, CRP 69.3, Pro-Yao 0.57 - No nuchal rigidity, Kernig sign negative, brudunki sign negative - Blood pressure 173/108, could be hypertensive encephalopathy? on Cardene drip, - No clinical features associate with strokelike symptoms, nonetheless is on Eliquis, Plavix Plan - Neurochecks, no stroke scale - Workup as above - Cardene drip - Resume home blood pressure medications -Acute on chronic anemia, monitor -On vancomycin, Zosyn -MRI brain -For NSTEMI, serial EKGs, serial troponins, telemetry monitoring, cardiac echo - Full code - Eliquis for DVT prophylaxis PDMP PDMP Reviewed: Not Reviewed Attestations 2 Medical Necessity Statement*: Patient requires hospitalization for altered mental status Diagnoses Acute encephalopathy G93.40 Hypertensive urgency I16.0
--- NOTE | 2025-02-25 14:38 | PC.NURSE ---
Patient left CSU for dialysis at 1440.
--- NOTE | 2025-02-25 17:19 | PC.NURSE ---
Provider is updated that Jose Guadalupe Claudio, his just came to me and said that she thinks that he may have been taking her baclofen 10mg by mistake, unsure of how many.
[2025-02-25 19:16] LABS: Platelet Count 381 10^3/cmm (157-399)
[2025-02-25] MEDS: heparin drip 25,000 UNIT/500 ML PREMIX 21 UNIT IV (20:15)
[2025-02-25] MEDS: heparin 5,000 unit/mL INJ 1 mL IVP (20:16)
[2025-02-25] MEDS: thiamine 100 mg/mL 2mL SDV 200 MG IVP (20:16)
[2025-02-26] VITALS (43 sets, daily range): BP systolic 99–196; BP diastolic 60–104; PULSE 67–98; RESP 6–30; TEMP 36.4–37.8; O2SAT 93–100
[2025-02-26 02:52] LABS: Partial Thromboplastin Time 102.9 SECONDS (23.9-36.7)
[2025-02-26] MEDS: nicardipine 20 MG/200 ML PREMIX 30 MG IV (04:04)
[2025-02-26] MEDS: morphine 4 mg/mL SDV 1 mL 2 MG IVP ×3 (04:07→12:43)
[2025-02-26] MEDS: venlafaxine ER (24HR) 150 mg Capsule PO (04:09)
[2025-02-26 06:47] LABS: Hematocrit 26.7 % (37-53); Hemoglobin 8.10 g/dL (11.27-16.99); Mean Corpuscular HGB Conc 30.3 g/dL (30-55); Mean Corpuscular Hemoglobin 29.8 pg (27-33); Mean Corpuscular Volume 98.2 fl (82-101); Nucleated Red Blood Cells % 0 %; Platelet Count 305 10^3/cmm (157-399); Red Blood Count 2.72 10^6/uL (3.85-5.65); White Blood Count 13.29 10^3/uL (3.29-11.43)
[2025-02-26 07:07] LABS: Alanine Aminotransferase < 5 U/L (0-41); Albumin Level 3.7 g/dL (3.5-5.2); Alkaline Phosphatase 97 U/L (40-130); Anion Gap 25.2 (5-19); Aspartate Amino Transferase 12 U/L (0-40); Blood Urea Nitrogen 16 mg/dL (6-20); Calcium 10.0 mg/dL (8.5-10.5); Carbon Dioxide 21 mmol/L (22-29); Chloride 100 mmol/L (98-107); Globulin 4.0 g/dL (1.3-4.6); Glucose 150 mg/dL (65-115); Magnesium 2.3 mg/dL (1.7-2.3); Osmolality Calculated 298 mOsm/kg (285-295); Potassium 4.2 mmol/L (3.5-5.1); Sodium 142 mmol/L (136-145); Total Protein 7.7 g/dL (6.6-8.7)
[2025-02-26] MEDS: piperacillin-tazobactam 3.375 GM in sodium chloride 0.9% (plus) 50 ML IV (07:47)
--- NOTE | 2025-02-26 07:48 | PM.PN ---
Subjective Subjective: The patient was seen and examined. Per the nurse she spoke this morning however he is not interactive with me at this time. He is very sleepy and lethargic. Medications: Reviewed: Yes Medication Review Details: Current Medications Acetaminophen (Acetaminophen 325 Mg Tablet) 650 mg PO Q6H PRN PRN Reason: Mild/Mod Pain Or Temp >/= 101 Amlodipine Besylate (Amlodipine 5 Mg Tablet) 10 mg PO QPM [facility] Last Admin: 02/25/25 20:14 Dose: 10 mg Aspirin (Aspirin 81 Mg Ec Tablet) 81 mg PO DAILY [facility] Last Admin: 02/26/25 04:08 Dose: 81 mg Buspirone HCl (Buspirone 5 Mg Tablet) 5 mg PO TID [facility] Last Admin: 02/26/25 04:08 Dose: 5 mg Carvedilol (Carvedilol 25 Mg Tablet) 25 mg PO BID [facility] Last Admin: 02/26/25 04:09 Dose: 25 mg Clonidine HCl (Clonidine 0.1 Mg Tablet) 0.3 mg PO TID [facility] Last Admin: 02/26/25 04:09 Dose: 0.3 mg Clopidogrel Bisulfate (Clopidogrel 75 Mg Tablet) 75 mg PO DAILY [facility] Last Admin: 02/26/25 04:07 Dose: 75 mg Furosemide (Furosemide 40 Mg Tablet) 40 mg PO DAILY [facility] Last Admin: 02/26/25 04:09 Dose: 40 mg Gabapentin (Gabapentin 300 Mg Capsule) 300 mg PO BEDTIME [facility] Last Admin: 02/25/25 20:17 Dose: 300 mg Glucagon (Glucagon 1 Mg/Ml Kit 1 Ml) 1 mg IM ONCE PRN; Protocol PRN Reason: Adult Acute Hypoglycemia Nursing Prot. Heparin Sodium (Porcine) (Heparin 5,000 Unit/Ml Inj 1 Ml) 0 unit IVP PRN PRN; Protocol PRN Reason: Heparin Weight Based Protocol -Subsequent Bolus Hydralazine HCl (Hydralazine 50 Mg Tablet) 100 mg PO TID [facility] Last Admin: 02/26/25 04:08 Dose: 100 mg Nicardipine/Sodium Chloride (Cardene) 20 mg in 200 mls @ 0 mls/hr IV .Q0M [facility]; Protocol Last Admin: 02/26/25 04:04 Dose: 3 mg/hr, 30 mls/hr Dextrose (D5w) 500 mls @ 0 mls/hr IV ONCE PRN; Protocol PRN Reason: Adult Acute Hypoglycemia Prot Dextrose (D10w) 125 mls @ 750 mls/hr IV PRN PRN; Protocol PRN Reason: Adult Acute Hypoglycemia Nursing Protocol Dextrose (D10w) 250 mls @ 1,000 mls/hr IV PRN PRN; Protocol PRN Reason: Adult Acute Hypoglycemia Nursing Protocol Piperacillin Sod/Tazobactam (Sod 3.375 gm/ Sodium Chloride) 50 mls @ 12.5 mls/hr IV Q12H [facility] Last Admin: 02/26/25 07:47 Dose: 12.5 mls/hr Heparin Sodium/Sodium Chloride (Heparin Drip) 25,000 unit in 500 mls @ 0 mls/hr IV CONT [facility]; Protocol Last Titration: 02/26/25 02:58 Dose: 11.71 unit/kg/hr, 17 mls/hr Insulin Human Lispro (Insulin Lispro 100 Unit/1 Ml) 0 unit SUBCUT TIDWM [facility]; Protocol Last Admin: 02/26/25 07:41 Dose: Not Given Isosorbide Mononitrate (Isosorbide Mononitrate Er 30 Mg Tablet) 30 mg PO DAILY [facility] Last Admin: 02/26/25 04:09 Dose: 30 mg Lisinopril (Lisinopril 20 Mg Tablet) 20 mg PO BID [facility] Last Admin: 02/26/25 04:08 Dose: 20 mg Mirtazapine (Mirtazapine 15 Mg Tablet) 7.5 mg PO QPM [facility] Last Admin: 02/25/25 20:16 Dose: 7.5 mg Morphine Sulfate (Morphine 4 Mg/Ml Sdv 1 Ml) 2 mg IVP Q4H PRN PRN Reason: SEVERE PAIN Last Admin: 02/26/25 04:07 Dose: 2 mg Naloxone HCl (Naloxone 0.4 Mg/Ml Sdv) 0.1 mg IVP Q2M PRN PRN Reason: OPIATERV Ondansetron HCl (Ondansetron 2 Mg/Ml Sdv 2 Ml) 4 mg IVP Q8H PRN PRN Reason: vomiting, or N/V if npo Pantoprazole Sodium (Pantoprazole Dr 40 Mg Tablet) 40 mg PO BIDWM [facility] Last Admin: 02/25/25 20:17 Dose: 40 mg Ropinirole HCl (Ropinirole 1 Mg Tablet) 0.5 mg PO QPM [facility] Last Admin: 02/25/25 20:15 Dose: 0.5 mg Sevelamer Carbonate (Sevelamer 800 Mg Tablet) 1,600 mg PO 1200 [facility] Last Admin: 02/25/25 12:52 Dose: Not Given Sevelamer Carbonate (Sevelamer 800 Mg Tablet) 800 mg PO BIDWM [facility] Last Admin: 02/25/25 19:57 Dose: Not Given Thiamine HCl (Thiamine 100 Mg/Ml 2ml Sdv) 200 mg IVP Q12H [facility] Last Admin: 02/25/25 20:16 Dose: 200 mg Vancomycin HCl (Vancomycin 1,000 Mg Sdv (Pharmacy Mix)) 0 mg XX PRN PRN PRN Reason: Pharmacy to Dose Venlafaxine HCl (Venlafaxine Er (24hr) 150 Mg Capsule) 150 mg PO DAILY [facility] Last Admin: 02/26/25 04:09 Dose: 150 mg Vitals/I&O/Wt Last Vital Signs Temp 98.3 F 02/26/25 04:00 Pulse 81 02/26/25 05:15 Resp 19 H 02/26/25 05:15 BP 133/79 02/26/25 05:15 Pulse Ox 94 02/26/25 04:00 O2 Del Method Room Air 02/26/25 04:00 02/25/25 02/26/25 02/26/25 22:59 06:59 14:59 Intake Total 900 / 1329 391.05 / 1720.05 Output Total 3086 / 3086 0 / 3086 Balance -2186 / -1757 391.05 / -1365.95 Weight last 48 hrs Weight 70.6 kg Weight 70.9 kg Weight 72.6 kg Weight 74.5 kg Physical Exam Narrative: Patient is comfortable in bed blood pressure stable. No respiratory distress. His pupils are reactive Neck is supple Lungs have good air movement Heart regular Anterior chest wall right sided permacath Abdomen is soft positive bowel sounds. Extremities no significant edema. Neuro -currently is very lethargic not responsive or following commands. He does respond to pain. Data 02/26/25 06:26 02/26/25 06:26 Micro: Microbiology 02/24/25 16:11 Blood Culture - Preliminary Blood NEGATIVE TO DATE 02/24/25 16:10 Blood Culture - Preliminary Blood NEGATIVE TO DATE A&P Assessment and plan 1. ESRD (end stage renal disease) on dialysis: 44-year-old manwith a past medical history of pulmonary embolism on Eliquis, drug-eluting stents, type 2 diabetes mellitus CHF, recent history of right hip fracture who presents [facility] for altered mental status. 1. End-stage renal disease patient on dialysis Tuesday and Tuesday. He is status post dialysis yesterday. Patient still has altered mental status and there is concern that he has been taking baclofen. 1 may consider asking the lab if it is possible to get a baclofen level. As there is concern that he took baclofen which is cleared by the kidneys and he has ESRD we will repeat dialysis today and monitor for mental status improvement. However given his ESRD and the amount of time of altered mental status may take time until neurological symptoms improve. 2. Hypertensive urgency --attempt to decrease Cardene. Patient is also on amlodipine 10 mg daily, carvedilol 25 twice daily clonidine 0.3 3 times daily which I will lower his it may be suppressing his mental status, furosemide and hydralazine. He is also taking lisinopril. Would consider renal artery duplex when stable 3. Anemia hemoglobin- 8.1-please assess for anemia and possible bleeding. Please note that last month his hemoglobin was as high as 11 it is now down to 8.1. - check iron studies. Patient was seen and examined using audiovisual equipment as a telehealth visit. Patient is confused and unable to consent at this time. Plan: See above PDMP PDMP Reviewed: Not Reviewed Attestations Medical Necessity Statement*: Hypertension, altered mental status, ESRD, anemia Time Spent in Patient Care: 16 - 35 minutes (>than 50% of time spent in counselling and/or direct pt care on unit). Coding Level of Care Code Acute Code for Chg Fwd Diagnoses ESRD (end stage renal disease) on dialysis N18.6; Z99.2
[2025-02-26] MEDS: thiamine 100 mg/mL 2mL SDV 200 MG IVP ×2 (07:49→17:18)
--- NOTE | 2025-02-26 08:00 | MR_ITS ---
WS: [id number] MRI BRAIN WITHOUT CONTRAST HISTORY: ams COMPARISON: CT head 02/24/2025 TECHNIQUE: Diffusion imaging, multiplanar T1, T2 and FLAIR imaging obtained. No evidence for acute infarct or hemorrhage. Gonzalez-white matter differentiation is normal. Mild symmetric cerebral and cerebellar atrophy. There are a few scattered T2 and FLAIR signal hyperintensities associated with small vessel disease. Mild bilateral small vessel disease in the patrice. No prior infarcts. Ventricles and extra-axial spaces are normal. No inferior displacement of cerebellar tonsils. The sella turcica and pituitary gland are unremarkable. Dural venous sinuses and ambler of Roche demonstrate no abnormality on this unenhanced studies. Paranasal sinuses: Mild mucoperiosteal thickening in the RIGHT sphenoid sinus. Mastoid air cells: Small amount of fluid in the mastoid air cells. Calvarium and scalp: Intact. MR/MR head wo con* [id number] IMPRESSION: 1. Normal diffusion imaging. No acute infarct. 2. Mild cerebral and cerebellar atrophy. 3. Mild small vessel changes in the supratentorial white matter and bilaterall y within the patrice. 4. RIGHT sphenoid sinus disease.
[2025-02-26 08:24] LABS: Iron 75 ug/dL (59-158); Uric Acid 3.4 mg/dL (3.4-7.0)
[2025-02-26 08:50] LABS: Ferritin 2312 ng/mL (30-400)
--- NOTE | 2025-02-26 08:59 | PC.NURSE ---
Nursing okay'd with provider to reenter the lorazepam 1mg IVP prior to MRI today.
[2025-02-26 09:43] LABS: Partial Thromboplastin Time 68.1 SECONDS (23.9-36.7)
[2025-02-26] MEDS: LORazepam 2 mg/mL INJ 1 mL 1 MG IVP (09:55)
--- NOTE | 2025-02-26 11:14 | PC.NURSE ---
Patient left CSU to MRI and then to dialysis at 1000.
--- NOTE | 2025-02-26 12:22 | PM.CONSULT ---
Providers/Reason For Consult Consulting Physician/Specialty*: JESSICA Lyn MD/cardiology Reason for Consult*: Patient with history of multiple PCI's, end-stage renal diseasee. Elevated troponin T and new wall motion abnormalities by echocardiogram Requesting Physician: Dr. Fox Attending Physician: Canelo Fox MD Primary Care Provider: Yaniv Moe MD History of Present Illness History of Present Illness Jose Guadalupe Claudio is a 44 year old male with history of coronary artery disease and end-stage renal disease, is admitted to the hospital with altered mental status. He was found to have elevated troponin T. Cardiology consult is requested for further cardiac evaluation recommendations. According to the patient, he never had any chest pain. His family brought him to the hospital mainly because of altered mental status. The altered mental status was thought to be related to the metabolic encephalopathy. He seems to be feeling much better at this time. He is getting hemodialysis 3 times a week. He seems to think that he might have taken the medications (? Baclofen )belonging to his accidentally?. Currently he has no chest pain or unusual shortness of breath. Has been having some nausea since he came back from the dialysis. Patient has a history of coronary disease and had a four-vessel bypass surgery in 2017. He had a cardiac catheterization done in August of this year. He was found to have total occlusion of the saphenous venous graft to the first diagonal branch. The first diagonal artery was found to have a high-grade ostial stenosis. The LEON to the LAD was found to be patent. Venous graft to the second obtuse marginal artery also was found to be totally occluded. The sequential graft to the first diagonal/obtuse marginal 1 was found to be patent. Patient underwent PCI of the first diagonal artery lesion. He came back to the hospital in October with acute pulmonary edema. Repeat angiogram revealed stent occlusion in the diagonal artery. This was reintervened. According to the patient, he been doing okay since the last coronary intervention. Approximately 2 weeks ago, he had a fall and sustained hip fracture on the right side. He underwent surgical intervention for this. Slowly recuperating He has a history of multiple episodes of pneumonia. Has a history of hypertension, dyslipidemia, type 2 diabetes and reactive airway disease. No history for liver disease or bleeding disorders. History of pulmonary embolism and he is on long-term oral anticoagulation. He used to smoke heavily and has cut back since 2019. He smokes marijuana and is a licensed marijuana user. He has a strong family history of premature atherosclerotic heart disease. His father had myocardial infarction at age of 41 and of the same. Mother had myocardial infarction at the age of 49 and had a coronary artery bypass surgery. No other relevant family history. He is and has 4 children. He has 3 siblings and apparently have no major medical problems . Currently has no chest pain or chest tightness. Review of Systems Narrative: CONSTITUTIONAL: Episodes of altered mental status EYES: No blurring of vision or other visual disturbances lately. [] ENT: No hoarseness of voice, auditory disturbances or sore throat. [] CARDIOVASCULAR: As mentioned above. [] RESPIRATORY: No significant cough. [] GASTROINTESTINAL: No hematemesis or melena. [] GENITOURINARY: End-stage renal disease on dialysis INTEGUMENTARY: No skin rashes or history of skin cancer. [] NEURO: No transient ischemic attacks or amaurosis. [] PSYCHIATRIC: No history of psychosis . HEMATOLOGIC: No bleeding disorders or significant anemia. [] ENDOCRINE: No history of polyuria or polydipsia. [] MUSCULOSKELETAL: No recent joint pain or swelling. [] ALLERGY/IMMUNOLOGY: As mentioned above. [] Medications/Allergies Home Medications ?Medication ?Instructions ?Recorded ?Confirmed ?Last Taken ?Type buspirone 5 mg tablet 5 mg PO TID 06/09/24 02/24/25 02/23/25 History hydralazine 100 mg tablet 100 mg PO TID 06/09/24 02/24/25 02/23/25 History loperamide 2 mg capsule See Rx Instructions .Route .COMPLEX 06/09/24 02/24/25 02/23/25 History mirtazapine 15 mg tablet 7.5 mg PO QPM 06/09/24 02/24/25 02/23/25 History ropinirole 0.5 mg tablet 0.5 mg PO QPM 06/09/24 02/24/25 02/23/25 History sevelamer carbonate 800 mg tablet See Rx Instructions .Route .COMPLEX 06/09/24 02/24/25 02/23/25 History venlafaxine 150 mg 150 mg PO DAILY 06/09/24 02/24/25 02/23/25 History capsule,extended release 24 hr sodium bicarbonate 325 mg tablet 325 mg PO DAILY PRN Stomach ACID 09/19/24 02/24/25 12/03/24 07:00 History vit B,C-folic ac 800 mcg-zinc 12.5 See Rx Instructions .Route .COMPLEX 10/13/24 02/24/25 02/04/25 History mg-selen-D3 2,000 unit-vit E tablet (RenaPlex-D) insulin lispro 100 unit/mL See Rx Instructions .Route .COMPLEX 11/13/24 02/24/25 02/23/25 History subcutaneous pen megestrol 400 mg/10 mL (40 mg/mL) 400 mg PO DAILY 11/13/24 02/24/25 02/23/25 History oral suspension gabapentin 300 mg capsule 300 mg PO BEDTIME 12/03/24 02/24/25 02/23/25 History pantoprazole 40 mg tablet,delayed 40 mg PO BIDWM #84 tabs 12/06/24 02/24/25 02/23/25 Rx release clopidogrel 75 mg tablet 75 mg PO DAILY #90 tabs 12/27/24 02/24/25 02/23/25 Rx furosemide 40 mg tablet (Lasix) 40 mg PO DAILY 12/27/24 02/24/25 02/05/25 History carvedilol 25 mg tablet 25 mg PO TID 02/06/25 02/24/25 02/23/25 History clonidine HCl 0.3 mg tablet 0.3 mg PO TID 02/06/25 02/24/25 02/23/25 History insulin glargine 100 unit/mL (3 10 unit SUBCUT QPM 02/06/25 02/24/25 02/23/25 History mL) subcutaneous pen (Lantus Solostar U-100 Insulin) isosorbide mononitrate 30 mg 30 mg PO DAILY 02/06/25 02/24/25 02/23/25 History tablet,extended release 24 hr amlodipine 5 mg tablet 10 mg (2 x 5 mg) PO QPM 30 days 02/10/25 02/24/25 02/23/25 Rx #60 tabs oxycodone 5 mg tablet 5 mg PO Q6H PRN pain 7 days #28 02/19/25 02/24/25 Unknown Rx tabs bumetanide 2 mg tablet 20 mg PO DAILY 02/24/25 02/24/25 Unknown History lisinopril 20 mg tablet 20 mg PO DAILY 02/24/25 02/24/25 02/23/25 History apixaban 5 mg tablet (Eliquis) See Rx Instructions .Route 02/25/25 Unknown Rx .COMPLEX #180 tabs Allergies Allergy/AdvReac Type Severity Reaction Status Date / Time No Known Allergies Allergy Verified 02/19/25 15:12 Current Medications Generic Name Dose Route Start Last Admin Trade Name Ever PRN Reason Stop Dose Admin Amlodipine Besylate 10 mg 02/24/25 17:00 02/25/25 20:14 Amlodipine 5 Mg Tablet PO 10 mg QPM JAQUELINE Administration Aspirin 81 mg 02/25/25 17:20 02/26/25 04:08 Aspirin 81 Mg Ec Tablet PO 81 mg DAILY JAQUELINE Administration Buspirone HCl 5 mg 02/24/25 21:00 02/26/25 04:08 Buspirone 5 Mg Tablet PO 5 mg TID JAQUELINE Administration Carvedilol 25 mg 02/24/25 17:00 02/26/25 04:09 Carvedilol 25 Mg Tablet PO 25 mg BID JAQUELINE Administration Clonidine HCl 0.3 mg 02/24/25 21:00 02/26/25 04:09 Clonidine 0.1 Mg Tablet PO 0.3 mg TID JAQUELINE Administration Clopidogrel Bisulfate 75 mg 02/25/25 05:00 02/26/25 04:07 Clopidogrel 75 Mg Tablet PO 75 mg DAILY JAQUELINE Administration Furosemide 40 mg 02/25/25 05:00 02/26/25 04:09 Furosemide 40 Mg Tablet PO 40 mg DAILY JAQUELINE Administration Hydralazine HCl 100 mg 02/24/25 21:00 02/26/25 04:08 Hydralazine 50 Mg Tablet PO 100 mg TID JAQUELINE Administration Nicardipine/Sodium Chloride 20 mg in 200 mls @ 0 mls/hr 02/24/25 15:45 02/26/25 07:58 Cardene IV 0 mg/hr .Q0M JAQUELINE 0 mls/hr Protocol Titration Per Protocol Piperacillin Sod/Tazobactam 50 mls @ 12.5 mls/hr 02/24/25 19:30 02/26/25 07:47 Sod 3.375 gm/ Sodium Chloride IV 12.5 mls/hr Q12H JAQUELINE Administration Heparin Sodium/Sodium Chloride 25,000 unit in 500 mls @ 0 mls/hr 02/25/25 20:00 02/26/25 09:45 Heparin Drip IV 11.71 unit/kg/hr CONT JAQUELINE 17 mls/hr Protocol Titration Per Protocol Insulin Human Lispro 0 unit 02/24/25 18:00 02/26/25 07:41 Insulin Lispro 100 Unit/1 Ml SUBCUT Not Given TIDWM [facility] Protocol Isosorbide Mononitrate 30 mg 02/25/25 05:00 02/26/25 04:09 Isosorbide Mononitrate Er 30 Mg Tablet PO 30 mg DAILY JAQUELINE Administration Lisinopril 20 mg 02/25/25 17:00 02/26/25 04:08 Lisinopril 20 Mg Tablet PO 20 mg BID JAQUELINE Administration Mirtazapine 7.5 mg 02/24/25 17:00 02/25/25 20:16 Mirtazapine 15 Mg Tablet PO 7.5 mg QPM JAQUELINE Administration Morphine Sulfate 2 mg 02/24/25 15:56 02/26/25 08:45 Morphine 4 Mg/Ml Sdv 1 Ml IVP 2 mg Q4H PRN Administration SEVERE PAIN Pantoprazole Sodium 40 mg 02/24/25 18:00 02/26/25 08:[address] 40 Mg Tablet PO Not Given BIDWM JAQUELINE Ropinirole HCl 0.5 mg 02/24/25 17:00 02/25/25 20:15 Ropinirole 1 Mg Tablet PO 0.5 mg QPM JAQUELINE Administration Sevelamer Carbonate 1,600 mg 02/25/25 12:00 02/25/25 12:52 Sevelamer 800 Mg Tablet PO Not Given 1200 [facility] Sevelamer Carbonate 800 mg 02/24/25 18:00 02/26/25 08:38 Sevelamer 800 Mg Tablet PO Not Given BIDWM JAQUELINE Thiamine HCl 200 mg 02/25/25 17:45 02/26/25 07:49 Thiamine 100 Mg/Ml 2ml Sdv IVP 200 mg Q12H JAQUELINE Administration Venlafaxine HCl 150 mg 02/25/25 05:00 02/26/25 04:09 Venlafaxine Er (24hr) 150 Mg Capsule PO 150 mg DAILY JAQUELINE Administration PFSH Acute PFSH: Medical History Anemia Hypertensive urgency Left ventricular systolic dysfunction (LVSD), NYHA class 3 Chronic hypertension ESRD (end stage renal disease) Diabetic peripheral neuropathy associated with type 2 diabetes mellitus Ingrowing toenail of left foot Hematoma of leg Non-pressure chronic ulcer of 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 Bilateral pes planus Medical non-compliance Closed right trimalleolar fracture Restless leg syndrome Peritonitis CAD (coronary artery disease) Depression End-stage renal disease on peritoneal dialysis Surgical History Hx of CABG Social History Smoking and tobacco/nicotine status: current every day tobacco/nicotine user (medical cannibis) Alcohol intake: never Substance/Drug Use: current Other substance/drug use details: Medical marijuana Vitals/I&O/Wt Last Vital Signs Temp 100.0 F H 02/26/25 11:32 Pulse 96 02/26/25 11:32 Resp 18 02/26/25 11:32 BP 168/104 02/26/25 11:32 Pulse Ox 97 02/26/25 08:45 O2 Del Method Room Air 02/26/25 08:00 02/25/25 02/26/25 02/26/25 22:59 06:59 14:59 Intake Total 900 / 1329 391.05 / 1720.05 232.317 / 232.317 Output Total 3086 / 3086 0 / 3086 Balance -2186 / -1757 391.05 / -1365.95 232.317 / 232.317 Weight last 48 hrs Weight 155 lb 10.342 oz Weight 156 lb 4.924 oz Weight 160 lb 0.889 oz Weight 164 lb 3.91 oz Physical Exam Narrative: GENERAL: The patient is alert and oriented times three. Not in any acute distress. Chronically ill looking HEENT: Mild pallor. No icterus or lymphadenopathy.Oral cavity: There are no mucous membrane lesions. NECK: Trachea appears to be central. No masses noted. No JVD or thyromegaly appreciated. RESPIRATORY: Chest is symmetrical. No intercostals muscle retraction or any accessory muscle activation. There is no chest wall tenderness. Breath sounds are heard bilaterally. No rales or rhonchi heard. No evidence of any consolidation. BREASTS: Deferred. HEART: The heart sounds are normal. No S3 or S4. Short systolic murmur at the lower sternal border. No diastolic murmurs. No pericardial rub ABDOMEN: No vessel pulsations or distention. No tenderness. No organomegaly appreciated. Bowel sounds are normally heard. : Deferred. RECTAL: Deferred. LYMPHATIC: No lymphadenopathy noted in the neck. EXTREMITIES: No edema or cyanosis. No clubbing. Patient has generalized wasting of muscles in the upper and lower extremities. MUSCULOSKELETAL: No acute joint deformities or swelling SKIN: There are no significant rashes or ecchymosis NEUROPSYCHIATRIC: The patient is alert and oriented x3. Appears to be in a good mood. No tremors or rigidity noted. Data 02/26/25 06:26 02/26/25 06:26 Other Labs: Laboratory Last Values WBC 13.29 10^3/uL (3.29-11.43) H 02/26/25 06:26 RBC 2.72 10^6/uL (3.85-5.65) L 02/26/25 06:26 Hgb 8.10 g/dL (11.27-16.99) L 02/26/25 06:26 Hct 26.7 % (37-53) L 02/26/25 06:26 MCV 98.2 fl (82-101) 02/26/25 06: MCH 29.8 pg (27-33) 02/26/25 06:26 MCHC 30.3 g/dL (30-55) 02/26/25 06:26 RDW 17.0 % (12.1-15.1) H 02/26/25 06:26 Plt Count 305 10^3/cmm (157-399) 02/26/25 06:26 MPV 9.0 fL (7.4-10.4) 02/26/25 06:26 Neut % (Auto) 75.5 % 02/26/25 06:26 Lymph % (Auto) 11.0 % 02/26/25 06:26 [place] % (Auto) 9.5 % 02/26/25 06:26 Eos % (Auto) 2.7 % 02/26/25 06:26 Baso % (Auto) 0.8 % 02/26/25 06:26 Neut # (Auto) 10.05 10^3/uL (1.8-7.7) H 02/26/25 06:26 Lymph # (Auto) 1.5 10^3/uL (0.8-4.8) 02/26/25 06:26 [place] # (Auto) 1.3 10^3/uL (0.2-0.9) H 02/26/25 06:26 Eos # (Auto) 0.4 10^3/uL (0.0-0.8) 02/26/25 06:26 Baso # (Auto) 0.1 10^3/uL (0.0-0.1) 02/26/25 06:26 Nucleated RBC % (auto) 0 % 02/26/25 06: Nucleated RBCs # 0.0 /100WBC 02/26/25 06:26 ESR 87 mm/hr (0-10) H 02/24/25 13:49 PT 15.10 SECONDS (12.1-14.9) H 02/24/25 13:49 INR 1.11 (0.8-1.2) 02/24/25 13:49 APTT 75.2 SECONDS (23.9-36.7) H 02/26/25 17:00 Sodium 142 mmol/L (136-145) 02/26/25 06:26 Potassium 4.2 mmol/L (3.5-5.1) 02/26/25 06:26 Chloride 100 mmol/L (98-107) 02/26/25 06:26 Carbon Dioxide 21 mmol/L (22-29) L 02/26/25 06:26 Anion Gap 25.2 (5-19) H 02/26/25 06:26 BUN 16 mg/dL (6-20) 02/26/25 06:26 Creatinine 4.2 mg/dL (0.7-1.2) H 02/26/25 06:26 GFR Calculation 15.4 mL/min (90-130) L 02/26/25 06:26 Glucose 150 mg/dL (65-115) H 02/26/25 06:26 POC Glucose 209 mg/dL (70-110) H 02/26/25 20:35 Calculated Osmolality 298 mOsm/kg (285-295) H 02/26/25 06:26 Lactic Acid 1.4 mmol/L (0.5-2.2) 02/24/25 13:49 Uric Acid 3.4 mg/dL (3.4-7.0) 02/26/25 06:26 Calcium 10.0 mg/dL (8.5-10.5) 02/26/25 06:26 Phosphorus 4.7 mg/dL (2.5-4.5) H 02/26/25 06:26 Magnesium 2.3 mg/dL (1.7-2.3) 02/26/25 06:26 Iron 75 ug/dL (59-158) 02/26/25 06:26 TIBC 148 mcg/dl 02/25/25 03:20 % Saturation 39.8 % (20-50) 02/25/25 03:20 Unsat Iron Binding 89 ug/dL (112-347) L 02/25/25 03:20 Ferritin 2312 ng/mL (30-400) H 02/26/25 06:26 Total Bilirubin 0.6 mg/dL (0.15-1.2) 02/26/25 06:26 AST 12 U/L (0-40) 02/26/25 06:26 ALT < 5 U/L (0-41) 02/26/25 06:26 Alkaline Phosphatase 97 U/L (40-130) 02/26/25 06:26 Ammonia 21 umol/L (16-60) 02/24/25 16:10 Troponin T 5th Gen ng/L 330 ng/L (0-15) H* 02/25/25 03:20 Troponin T Baseline 307 ng/L (0-15) H* 02/24/25 16:10 Troponin T 120 Minute 323.8 ng/L (0-15) H 02/24/25 18:10 Delta Troponin T 16.8 ABS# (0-10) H* 02/24/25 18:10 Troponin T Hi Sens 6Hr 326.2 ng/L (0-15) H 02/24/25 22:05 Troponin T Hi Sens 6Hr Delta 19.2 ng/L (0-12) H* 02/24/25 22:05 C-Reactive Protein 69.3 mg/L (0.0-4.9) H 02/24/25 13:49 Total Protein 7.7 g/dL (6.6-8.7) 02/26/25 06:26 Albumin 3.7 g/dL (3.5-5.2) 02/26/25 06:26 Globulin 4.0 g/dL (1.3-4.6) 02/26/25 06:26 Vitamin B12 441 pg/mL (232-1245) 02/25/25 03:20 Procalcitonin 0.57 ng/mL (0-0.5) H 02/24/25 13:49 TSH 4.08 uIU/mL (0.27-4.20) 02/25/25 03:20 PTH Intact 148.4 pg/mL (15-65) H 02/25/25 03:20 Calcium (PTH Intact) 9.7 mg/dL (8.5-10.5) 02/25/25 03:20 Vancomycin Trough 11.7 ug/mL (10-15) 02/25/25 20:37 Hep Bs Antigen Non-reactive (Nonreactive) 02/25/25 03:20 Hep Bs Antibody 65.0 (11.5-1000) 02/25/25 03:20 Hepatitis C Antibody Non-reactive (Nonreactive) 02/25/25 03:20 Influenza A (PCR) Negative (Negative) 02/24/25 17:39 Influenza Type B (PCR) Negative (Negative) 02/24/25 17:39 RSV (PCR) Negative (Negative) 02/24/25 17:39 SARS-CoV-2 (PCR) Negative (Negative) 02/24/25 17:39 Micro: Microbiology 02/24/25 16:11 Blood Culture - Preliminary Blood NEGATIVE TO DATE 02/24/25 16:10 Blood Culture - Preliminary Blood NEGATIVE TO DATE Other data: The echocardiogram from 02/24/2025 Normal left ventricular size. Severe hypokinesis of the mid and basal inferoseptal, inferior and inferolateral wall segments with a mildly reduced EF of 50%. Grade II/IV LV diastolic dysfunction, moderately elevated filling pressures. Normal right ventricular size and systolic function Mild mitral valve regurgitation Echocardiogram from 10/14/2024 Limited echocardiogram to assess LV function Moderately increased left ventricular cavity size. Severely decreased left ventricular systolic function. Left ventricular ejection fraction is estimated at 35 %. Global left ventricular hypokinesis with regional wall motion abnormality suggestive of lateral wall segmental severe hypokinesis There is no pericardial effusion. Right atrial pressure is around 15 mm of mercury. cardiac catheterization in October 2024 Left Main has no disease. * Mid Left Anterior Descending: total occlusion, JAZMYNE: 0 flow. * Left Internal Mammary Artery to Mid Left Anterior Descending graft: patent. * Mid Right Coronary Artery: moderate 50% stenosis, JAZMYNE: 3 flow. * Proximal Circumflex: total occlusion, JAZMYNE: 0 flow. * Distal Circumflex to Right Posterior AV collaterallization. * Ascending Aorta to 1st Diagonal graft: total occlusion, JAZMYNE: 0 flow. * 1st Diagonal: severe 90% stenosis, JAZMYNE: 3 flow. * Sequential SVG graft from 1st Diagonal to First Obtuse Marginal Branch Segment: patent. * Ascending Aorta to Second Obtuse Marginal Branch Segment graft: total occlusion, JAZMYNE: 0 flow. * Four grafts visualized. * Coronary angiography shows right dominance. PCI Status: Urgent PCI Indication: NSTE - ACS Interventional Findings * 1st Diagonal: 99% severe instent stenosis treated with a MDT NC EUPHORA RX [id number] BALLOON, MDT R MARILEE 3.0X12 DAY, and MDT NC EUPHORA RX [id number] BALLOON. 90% residual stenosis, JAZMYNE: 3 flow. A&P Assessment and plan 1. Elevated troponin: The troponin Ts seems to be chronically elevated since sublingual last year. Most likely this is from the end-stage renal disease and LV dysfunction. Since the patient has no specific symptoms of coronary insufficiency, he may not require any further intervention at this point. 2. Atherosclerosis of [place] coronary artery of [place] heart without angina pectoris: Patient had PCI of the diagonal lesion in August and October of this year. Currently seems to be stable. 3. Hx of CABG: Patient had quadruple bypass surgery. The LEON to the LAD was found to be patent. The sequential saphenous venous graft to the diagonal and the first obtuse marginal artery showed occlusion of the diagonal graft with a patent OM1 graft. The high degree diagonal lesion was intervened twice this year. He seems to be remaining stable. 4. Ischemic cardiomyopathy: The left ventricular ejection fraction of 36% by echocardiogram in October of this year. The most recent echocardiogram revealed ejection fraction of 50%. There is a significant improvement. Patient may continue the current medications. 5. Accelerated hypertension: Blood pressure seems to be getting under control. May continue on the current medications. The blood pressure needs to be closely monitored. 6. Multiple subsegmental pulmonary emboli without acute cor pulmonale: Patient is on long-term oral anticoagulation. This may be continued for the time being. Need to discuss about other options. 7. ESRD (end stage renal disease) on dialysis: Patient is getting hemodialysis 4 times a week. This may be continued. 8. Anemia due to stage 5 chronic kidney disease, not on chronic dialysis: 30 days of chronic illness specifically the chronic kidney disease. It seems to be stable. May continue on the current management. Plan: Other problems are as outlined before. Since the patient is fairly asymptomatic I may hold off on any further investigation at this point. He may be closely monitored on telemetry. Unless he has any specific symptoms of coronary insufficiency, may continue on the current management. PDMP PDMP Reviewed: Not Reviewed Coding Level of Care Code 99504 Diagnoses Elevated troponin R79.89 Atherosclerosis of [place] coronary artery of [place] heart without angina pectoris I25.10 Coronary Disease-Associated Artery/Lesion type: [place] artery Hx of CABG Z95.1 Ischemic cardiomyopathy I25.5 Accelerated hypertension I10 Multiple subsegmental pulmonary emboli without acute cor pulmonale I26.94 ESRD (end stage renal disease) on dialysis N18.6; Z99.2 Anemia due to stage 5 chronic kidney disease, not on chronic dialysis N18.5; D63.1 Anemia type: due to chronic kidney disease Chronic kidney disease stage: stage 5 (GFR < 15), not on chronic dialysis
--- NOTE | 2025-02-26 13:43 | PC.NURSE ---
Diet level 6 and mild thickener entered per provider.
--- NOTE | 2025-02-26 14:25 | P.PN_ITS ---
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, able to move both legs, able to smile for me, he does not remember the last 2 days, we had a discussion, his family that I met yesterday was concerned that he had taken too much of his muscle relaxer baclofen he is not exactly sure if he took too much of the baclofen he is complaining of diffuse musculoskeletal pain, no facial droop, no slurring of his words denies any chest pain, no shortness of breath Vitals/I&O/Wt Last Vital Signs Temp 100.0 F H 02/26/25 11:32 Pulse 96 02/26/25 11:32 Resp 15 02/26/25 12:43 BP 168/104 02/26/25 11:32 Pulse Ox 95 02/26/25 12:43 O2 Del Method Room Air 02/26/25 08:00 02/25/25 02/26/25 02/26/25 22:59 06:59 14:59 Intake Total 900 / 1329 391.05 / 1720.05 282.317 / 282.317 Output Total 3086 / 3086 0 / 3086 Balance -2186 / -1757 391.05 / -1365.95 282.317 / 282.317 Weight last 48 hrs Weight 70.6 kg Weight 70.9 kg Weight 72.6 kg Weight 74.5 kg Physical Exam 2 Const: COMMON NORMALS: no acute distress OTHER: During our conversation, he does really become tangential, requires frequent reorientation, but I cannot discern any facial droop no slurring his words, Eye: COMMON NORMALS: Equal, round and reactive pupils present and EOMs intact bilaterally PUPIL: Yes Equal, round and reactive pupils present Resp: COMMON NORMALS: normal respiratory effort, No retractions, No use of accessory muscles and clear to auscultation bilaterally AUSCULTATION: clear to auscultation bilaterally Cardio: COMMON NORMALS: regular rate, regular rhythm, S1 normal heart sound present and S2 normal heart sound present RATE: regular rate RHYTHM: r egular rhythm HEART SOUNDS: S1 normal heart sound present and S2 normal heart sound present GI: COMMON NORMALS: Normal to inspection, nondistended, normoactive bowel sounds present and non-tender : COMMON NORMALS: Yes no CVA tenderness BLADDER/KIDNEY EXAM: Yes no CVA tenderness Back/Pelvis: COMMON NORMALS: no CVA tenderness Extremity: COMMON NORMALS: no pedal edema Neuro: COMMON NORMALS: CN's II-XII intact bilaterally, moves all extremities and no focal motor deficits Data 02/26/25 06:26 02/26/25 06:26 Micro: Microbiology 02/24/25 16:11 Blood Culture - Preliminary Blood NEGATIVE TO DATE 02/24/25 16:10 Blood Culture - Preliminary Blood NEGATIVE TO DATE A&P Assessment and plan 1. Acute encephalopathy: 2. Hypertensive urgency: Plan: Acute metabolic encephalopathy - Clinically improving CT head FINDINGS: Brain: No intracranial hemorrhage. There is global parenchymal volume loss. Periventricular white matter hypoattenuation is nonspecific but most likely due to small vessel disease. No evidence of acute territorial infarct or cerebral edema. No mass effect or midline shift. Nonacute lacunar infarct left basal ganglia. Cerebral ventricles: Prominent ventricles likely secondary to volume loss. Paranasal sinuses: Visualized sinuses are unremarkable. No fluid levels. Mastoid air cells: Visualized mastoid air cells are well aerated. Bones: Unremarkable. No acute fracture. Soft tissues: Unremarkable. CTA head and neck CT/CT angio headneck* [id number] IMPRESSION: No large vessel stenosis or occlusion. IMPRESSION: 1. Patient motion artifact obscures visualization of vascular structures, most prominently the proximal right ICA. 2. Calcified plaque with approximately 50% stenosis in the proximal right ICA. -Iron studies ferritin 2161, iron 59 - UA pending - Chest x-ray no focal pneumonia -Blood cultures so far no growth, remains afebrile, stop antibiotics -TSH 4 -Ammonia level 21 -ESR 87, CRP 69.3, Pro-Yao 0.57 - No nuchal rigidity, Kernig sign negative, brudunki sign negative - Blood pressure 173/108, could be hypertensive encephalopathy? on Cardene drip, will wean off - No clinical features associate with strokelike symptoms, nonetheless is on Eliquis, Plavix Plan - Neurochecks, no stroke scale - Workup as above - Cardene drip currently off - Resume home blood pressure medications -Acute on chronic anemia, monitor -On vancomycin, Zosyn, discontinued as cultures negative -MRI brain pending - Potentially baclofen toxicity? Received dialysis yesterday mentation is significantly improved, will monitor mentation closely - Full code - Heparin drip for DVT prophylaxis NSTEMI - No chest pain complaints - History of CAD -Cardiac echo -CONCLUSIONS Normal left ventricular size. Severe hypokinesis of the mid and basal inferoseptal, inferior and inferolateral wall segments with a mildly reduced EF of 50%. Grade II/IV LV diastolic dysfunction, moderately elevated filling pressures. Normal right ventricular size and systolic function Mild mitral valve regurgitation -Coronary angiogram 10/2024 -Conclusions 1. There is total occlusion coronary artery disease with three vessel disease. 2. Four coronary grafts visualized: two grafts patent, and two grafts occluded. 3. Patient has prior CABG. 4. 1st Diagonal was treated with a Balloon, Drug Eluting Stent, and Balloon. Cardiac echo -CONCLUSIONS Normal left ventricular size. Severe hypokinesis of the mid and basal inferoseptal, inferior and inferolateral wall segments with a mildly reduced EF of 50%. Grade II/IV LV diastolic dysfunction, moderately elevated filling pressures. Normal right ventricular size and systolic function Mild mitral valve regurgitation Plan -Aspirin, statin, Plavix, heparin drip -cardiology consulted Plan for today PT OT, heparin drip, cardiology consultation, monitor mentation de-escalate off IV antibiotics PDMP PDMP Reviewed: Not Reviewed Attestations 2 Medical Necessity Statement*: Patient requires hospitalization for altered mental status, NSTEMI Diagnoses Acute encephalopathy G93.40 Hypertensive urgency I16.0
--- NOTE | 2025-02-26 14:45 | PC.NURSE ---
Patient returned to [facility] at 1445.
--- NOTE | 2025-02-26 15:00 | PC.NURSE ---
Provider is updated about Jose Guadalupe Claudio, can we do something different for his pain. He has morphine 2mg Q4hr. But just seems to be in pain all the time. Order enter.
[2025-02-26] MEDS: HYDROmorphone 0.5 MG/0.5 ML INJ 1 MG IVP ×2 (15:24→20:27)
[2025-02-26] MEDS: ondansetron 2 mg/ML SDV 2 mL 4 MG IVP (17:11)
[2025-02-26 17:58] LABS: Partial Thromboplastin Time 75.2 SECONDS (23.9-36.7)
[2025-02-27] VITALS (24 sets, daily range): BP systolic 106–161; BP diastolic 65–110; PULSE 62–79; RESP 10–26; TEMP 36.6–37.2; O2SAT 90–100
[2025-02-27] MEDS: HYDROmorphone 0.5 MG/0.5 ML INJ 1 MG IVP ×4 (00:51→13:08)
[2025-02-27 04:25] LABS: Hematocrit 24.4 % (37-53); Hemoglobin 7.30 g/dL (11.27-16.99); Mean Corpuscular HGB Conc 29.9 g/dL (30-55); Mean Corpuscular Hemoglobin 29.6 pg (27-33); Mean Corpuscular Volume 98.8 fl (82-101); Nucleated Red Blood Cells % 0 %; Platelet Count 290 10^3/cmm (157-399); Red Blood Count 2.47 10^6/uL (3.85-5.65); White Blood Count 9.31 10^3/uL (3.29-11.43)
[2025-02-27 04:42] LABS: Calcium 9.5 mg/dL (8.5-10.5)
[2025-02-27 04:43] LABS: Iron 65 ug/dL (59-158); Total Iron Binding Capacity 119 mcg/dl; Unsaturated Iron Binding 54 ug/dL (112-347)
[2025-02-27 04:45] LABS: Alanine Aminotransferase < 5 U/L (0-41); Albumin Level 3.4 g/dL (3.5-5.2); Alkaline Phosphatase 79 U/L (40-130); Anion Gap 20.1 (5-19); Aspartate Amino Transferase 10 U/L (0-40); Blood Urea Nitrogen 15 mg/dL (6-20); Calcium 9.9 mg/dL (8.5-10.5); Carbon Dioxide 25 mmol/L (22-29); Chloride 99 mmol/L (98-107); Globulin 3.7 g/dL (1.3-4.6); Glucose 131 mg/dL (65-115); Magnesium 2.1 mg/dL (1.7-2.3); Osmolality Calculated 293 mOsm/kg (285-295); Potassium 4.1 mmol/L (3.5-5.1); Sodium 140 mmol/L (136-145); Total Protein 7.1 g/dL (6.6-8.7)
[2025-02-27] MEDS: venlafaxine ER (24HR) 150 mg Capsule PO (04:52)
[2025-02-27] MEDS: thiamine 100 mg/mL 2mL SDV 200 MG IVP (08:03)
--- NOTE | 2025-02-27 08:30 | PM.PN ---
Subjective Subjective: Patient is feeling okay with no chest pain or shortness of breath. Vitals are stable. Medications: Medication Review Details: Current Medications Acetaminophen (Acetaminophen 325 Mg Tablet) 650 mg PO Q6H PRN PRN Reason: Mild/Mod Pain Or Temp >/= 101 Amlodipine Besylate (Amlodipine 5 Mg Tablet) 10 mg PO QPM REPLACED BY [facility] Last Admin: 02/26/25 17:20 Dose: 10 mg Apixaban (Apixaban 5 Mg Tablet) 5 mg PO Q12H REPLACED BY [facility] Last Admin: 02/26/25 23:04 Dose: 5 mg Buspirone HCl (Buspirone 5 Mg Tablet) 5 mg PO TID REPLACED BY [facility] Last Admin: 02/27/25 04:52 Dose: 5 mg Carvedilol (Carvedilol 25 Mg Tablet) 25 mg PO BID REPLACED BY [facility] Last Admin: 02/27/25 04:52 Dose: 25 mg Chlorthalidone (Chlorthalidone 25 Mg Tablet) 25 mg PO DAILY REPLACED BY [facility] Last Admin: 02/27/25 04:52 Dose: 25 mg Clonidine HCl (Clonidine 0.1 Mg Tablet) 0.3 mg PO TID REPLACED BY [facility] Last Admin: 02/27/25 04:52 Dose: 0.3 mg Clopidogrel Bisulfate (Clopidogrel 75 Mg Tablet) 75 mg PO DAILY REPLACED BY [facility] Last Admin: 02/27/25 04:52 Dose: 75 mg Furosemide (Furosemide 40 Mg Tablet) 40 mg PO DAILY REPLACED BY [facility] Last Admin: 02/27/25 04:52 Dose: 40 mg Glucagon (Glucagon 1 Mg/Ml Kit 1 Ml) 1 mg IM ONCE PRN; Protocol PRN Reason: Adult Acute Hypoglycemia Nursing Prot. Hydralazine HCl (Hydralazine 50 Mg Tablet) 100 mg PO TID REPLACED BY [facility] Last Admin: 02/27/25 04:52 Dose: 100 mg Hydromorphone HCl (Hydromorphone 0.5 Mg/0.5 Ml Inj) 1 mg IVP Q4H PRN PRN Reason: PAIN Last Admin: 02/27/25 04:45 Dose: 1 mg Dextrose (D5w) 500 mls @ 0 mls/hr IV ONCE PRN; Protocol PRN Reason: Adult Acute Hypoglycemia Prot Dextrose (D10w) 125 mls @ 750 mls/hr IV PRN PRN; Protocol PRN Reason: Adult Acute Hypoglycemia Nursing Protocol Dextrose (D10w) 250 mls @ 1,000 mls/hr IV PRN PRN; Protocol PRN Reason: Adult Acute Hypoglycemia Nursing Protocol Insulin Human Lispro (Insulin Lispro 100 Unit/1 Ml) 0 unit SUBCUT TIDWM REPLACED BY [facility]; Protocol Last Admin: 02/27/25 08:04 Dose: 4 unit Isosorbide Mononitrate (Isosorbide Mononitrate Er 30 Mg Tablet) 30 mg PO DAILY REPLACED BY [facility] Last Admin: 02/27/25 04:52 Dose: 30 mg Lisinopril (Lisinopril 20 Mg Tablet) 20 mg PO BID REPLACED BY [facility] Last Admin: 02/27/25 04:52 Dose: 20 mg Mirtazapine (Mirtazapine 15 Mg Tablet) 7.5 mg PO QPM REPLACED BY [facility] Last Admin: 02/26/25 17:21 Dose: 7.5 mg Naloxone HCl (Naloxone 0.4 Mg/Ml Sdv) 0.1 mg IVP Q2M PRN PRN Reason: OPIATERV Ondansetron HCl (Ondansetron 2 Mg/Ml Sdv 2 Ml) 4 mg IVP Q8H PRN PRN Reason: vomiting, or N/V if npo Last Admin: 02/26/25 17:11 Dose: 4 mg Pantoprazole Sodium (Pantoprazole Dr 40 Mg Tablet) 40 mg PO BIDWM REPLACED BY [facility] Last Admin: 02/27/25 08:03 Dose: 40 mg Ropinirole HCl (Ropinirole 1 Mg Tablet) 0.5 mg PO QPM REPLACED BY [facility] Last Admin: 02/26/25 17:19 Dose: 0.5 mg Sevelamer Carbonate (Sevelamer 800 Mg Tablet) 1,600 mg PO 1200 REPLACED BY [facility] Last Admin: 02/26/25 13:39 Dose: Not Given Sevelamer Carbonate (Sevelamer 800 Mg Tablet) 800 mg PO BIDWM REPLACED BY [facility] Last Admin: 02/27/25 08:03 Dose: 800 mg Sodium Chloride (Sodium Chloride 0.9% 100 Ml Bag) 50 ml IV PRN PRN PRN Reason: Blood transfusion prime and flush Stop: 02/28/25 08:08 Sucralfate (Sucralfate 1 Gm Tablet) 1 gm PO Q12H REPLACED BY [facility] Thiamine HCl (Thiamine 100 Mg/Ml 2ml Sdv) 200 mg IVP Q12H REPLACED BY [facility] Last Admin: 02/27/25 08:03 Dose: 200 mg Venlafaxine HCl (Venlafaxine Er (24hr) 150 Mg Capsule) 150 mg PO DAILY JAQU[facility]INE Last Admin: 02/27/25 04:52 Dose: 150 mg Vitals/I&O/Wt Last Vital Signs Temp 97.8 F 02/27/25 08:00 Pulse 73 02/27/25 08:00 Resp 21 H 02/27/25 08:00 BP 128/81 02/27/25 08:00 Pulse Ox 99 02/27/25 08:00 O2 Del Method Room Air 02/26/25 16:00 02/26/25 02/27/25 02/27/25 22:59 06:59 14:59 Intake Total 1147.717 / 1430.034 360 / 1790.034 Output Total 2137 / 2137 Balance -989.283 / -706.966 360 / -346.966 Weight last 48 hrs Weight 153 lb 12.8 oz Weight 155 lb 13.869 oz Weight 155 lb 10.342 oz Weight 156 lb 4.924 oz Physical Exam Narrative: GENERAL: The patient is alert and oriented times three. Not in any acute distress. Chronically ill looking HEENT: Mild pallor. No icterus or lymphadenopathy.Oral cavity: There are no mucous membrane lesions. NECK: Trachea appears to be central. No masses noted. No JVD or thyromegaly appreciated. RESPIRATORY: Chest is symmetrical. No intercostals muscle retraction or any accessory muscle activation. There is no chest wall tenderness. Breath sounds are heard bilaterally. No rales or rhonchi heard. No evidence of any consolidation. BREASTS: Deferred. HEART: The heart sounds are normal. No S3 or S4. Short systolic murmur at the lower sternal border. No diastolic murmurs. No pericardial rub ABDOMEN: No vessel pulsations or distention. No tenderness. No organomegaly appreciated. Bowel sounds are normally heard. : Deferred. RECTAL: Deferred. LYMPHATIC: No lymphadenopathy noted in the neck. EXTREMITIES: No edema or cyanosis. No clubbing. Patient has generalized wasting of muscles in the upper and lower extremities. MUSCULOSKELETAL: No acute joint deformities or swelling SKIN: There are no significant rashes or ecchymosis NEUROPSYCHIATRIC: The patient is alert and oriented x3. Appears to be in a good mood. No tremors or rigidity noted. Data 02/27/25 03:39 02/27/25 03:39 A&P Assessment and plan 1. Elevated troponin: The troponin Ts seems to be chronically elevated since December of last year. Most likely this is from the end-stage renal disease and LV dysfunction. Since the patient has no specific symptoms of coronary insufficiency, he may not require any further intervention at this point. 2. Atherosclerosis of [place] coronary artery of [place] heart without angina pectoris: Patient had PCI of the diagonal lesion in August and October of this year. Currently seems to be stable. 3. Hx of CABG: Patient had quadruple bypass surgery. The LEON to the LAD was found to be patent. The sequential saphenous venous graft to the diagonal and the first obtuse marginal artery showed occlusion of the diagonal graft with a patent OM1 graft. The high degree diagonal lesion was intervened twice this year. He seems to be remaining stable. 4. Ischemic cardiomyopathy: The left ventricular ejection fraction of 36% by echocardiogram in October of this year. The most recent echocardiogram revealed ejection fraction of 50%. There is a significant improvement. Patient may continue the current medications. 5. Accelerated hypertension: Blood pressure seems to be getting under control. May continue on the current medications. The blood pressure needs to be closely monitored. 6. Multiple subsegmental pulmonary emboli without acute cor pulmonale: Patient is on long-term oral anticoagulation. This may be continued for the time being. Need to discuss about other options. 7. ESRD (end stage renal disease) on dialysis: Patient is getting hemodialysis 4 times a week. This may be continued. 8. Anemia due to stage 5 chronic kidney disease, not on chronic dialysis: This could be related to the chronic illness specifically the chronic kidney disease. It seems to be stable. May continue on the current management. Plan: Other problems are as outlined before. Since the patient is fairly asymptomatic patient may not require any further investigations at this point. Since he is remaining stable, I may sign off PDMP PDMP Reviewed: Not Reviewed Attestations Medical Necessity Statement*: Disposition as per the primary Coding Level of Care Code 77471 Diagnoses Elevated troponin R79.89 Atherosclerosis of [place] coronary artery of [place] heart without angina pectoris I25.10 Coronary Disease-Associated Artery/Lesion type: [place] artery Hx of CABG Z95.1 Ischemic cardiomyopathy I25.5 Accelerated hypertension I10 Multiple subsegmental pulmonary emboli without acute cor pulmonale I26.94 ESRD (end stage renal disease) on dialysis N18.6; Z99.2 Anemia due to stage 5 chronic kidney disease, not on chronic dialysis N18.5; D63.1 Anemia type: due to chronic kidney disease Chronic kidney disease stage: stage 5 (GFR < 15), not on chronic dialysis
--- NOTE | 2025-02-27 09:34 | PM.PN ---
Subjective Subjective: Patient feels better. Still has chronic pain in his hip when he had recent hip surgery from hip fracture. No nausea vomiting or diarrhea. Patient admitted that he was taking baclofen he did not know that it was contraindicated with renal failure. He has no shortness of breath or chest pain at this time no headaches Medications: Reviewed: Yes Medication Review Details: Current Medications Acetaminophen (Acetaminophen 325 Mg Tablet) 650 mg PO Q6H PRN PRN Reason: Mild/Mod Pain Or Temp >/= 101 Amlodipine Besylate (Amlodipine 5 Mg Tablet) 10 mg PO QPM COUNTS INCLUDE 234 BEDS AT THE [facility] Last Admin: 02/26/25 17:20 Dose: 10 mg Apixaban (Apixaban 5 Mg Tablet) 5 mg PO Q12H COUNTS INCLUDE 234 BEDS AT THE [facility] Last Admin: 02/26/25 23:04 Dose: 5 mg Buspirone HCl (Buspirone 5 Mg Tablet) 5 mg PO TID COUNTS INCLUDE 234 BEDS AT THE [facility] Last Admin: 02/27/25 04:52 Dose: 5 mg Carvedilol (Carvedilol 25 Mg Tablet) 25 mg PO BID COUNTS INCLUDE 234 BEDS AT THE [facility] Last Admin: 02/27/25 04:52 Dose: 25 mg Chlorthalidone (Chlorthalidone 25 Mg Tablet) 25 mg PO DAILY COUNTS INCLUDE 234 BEDS AT THE [facility] Last Admin: 02/27/25 04:52 Dose: 25 mg Clonidine HCl (Clonidine 0.1 Mg Tablet) 0.3 mg PO TID COUNTS INCLUDE 234 BEDS AT THE [facility] Last Admin: 02/27/25 04:52 Dose: 0.3 mg Clopidogrel Bisulfate (Clopidogrel 75 Mg Tablet) 75 mg PO DAILY COUNTS INCLUDE 234 BEDS AT THE [facility] Last Admin: 02/27/25 04:52 Dose: 75 mg Furosemide (Furosemide 40 Mg Tablet) 40 mg PO DAILY COUNTS INCLUDE 234 BEDS AT [facility] Last Admin: 02/27/25 04:52 Dose: 40 mg Glucagon (Glucagon 1 Mg/Ml Kit 1 Ml) 1 mg IM ONCE PRN; Protocol PRN Reason: Adult Acute Hypoglycemia Nursing Prot. Hydralazine HCl (Hydralazine 50 Mg Tablet) 100 mg PO TID COUNTS INCLUDE 234 BEDS AT THE [facility] Last Admin: 02/27/25 04:52 Dose: 100 mg Hydromorphone HCl (Hydromorphone 0.5 Mg/0.5 Ml Inj) 1 mg IVP Q4H PRN PRN Reason: PAIN Last Admin: 02/27/25 09:11 Dose: 1 mg Dextrose (D5w) 500 mls @ 0 mls/hr IV ONCE PRN; Protocol PRN Reason: Adult Acute Hypoglycemia Prot Dextrose (D10w) 125 mls @ 750 mls/hr IV PRN PRN; Protocol PRN Reason: Adult Acute Hypoglycemia Nursing Protocol Dextrose (D10w) 250 mls @ 1,000 mls/hr IV PRN PRN; Protocol PRN Reason: Adult Acute Hypoglycemia Nursing Protocol Insulin Human Lispro (Insulin Lispro 100 Unit/1 Ml) 0 unit SUBCUT TIDWM COUNTS INCLUDE 234 BEDS AT THE [facility]; Protocol Last Admin: 02/27/25 08:04 Dose: 4 unit Isosorbide Mononitrate (Isosorbide Mononitrate Er 30 Mg Tablet) 30 mg PO DAILY COUNTS INCLUDE 234 BEDS AT THE [facility] Last Admin: 02/27/25 04:52 Dose: 30 mg Lisinopril (Lisinopril 20 Mg Tablet) 20 mg PO BID COUNTS INCLUDE 234 BEDS AT [facility] Last Admin: 02/27/25 04:52 Dose: 20 mg Mirtazapine (Mirtazapine 15 Mg Tablet) 7.5 mg PO QPM COUNTS INCLUDE 234 BEDS AT [facility] Last Admin: 02/26/25 17:21 Dose: 7.5 mg Naloxone HCl (Naloxone 0.4 Mg/Ml Sdv) 0.1 mg IVP Q2M PRN PRN Reason: OPIATERV Ondansetron HCl (Ondansetron 2 Mg/Ml Sdv 2 Ml) 4 mg IVP Q8H PRN PRN Reason: vomiting, or N/V if npo Last Admin: 02/26/25 17:11 Dose: 4 mg Pantoprazole Sodium (Pantoprazole Dr 40 Mg Tablet) 40 mg PO BIDWM COUNTS INCLUDE 234 BEDS AT [facility] Last Admin: 02/27/25 08:03 Dose: 40 mg Ropinirole HCl (Ropinirole 1 Mg Tablet) 0.5 mg PO QPM COUNTS INCLUDE 234 BEDS AT [facility] Last Admin: 02/26/25 17:19 Dose: 0.5 mg Sevelamer Carbonate (Sevelamer 800 Mg Tablet) 1,600 mg PO 1200 COUNTS INCLUDE 234 BEDS AT [facility] Last Admin: 02/26/25 13:39 Dose: Not Given Sevelamer Carbonate (Sevelamer 800 Mg Tablet) 800 mg PO BIDWM COUNTS INCLUDE 234 BEDS AT [facility] Last Admin: 02/27/25 08:03 Dose: 800 mg Sodium Chloride (Sodium Chloride 0.9% 100 Ml Bag) 50 ml IV PRN PRN PRN Reason: Blood transfusion prime and flush Stop: 02/28/25 08:08 Sucralfate (Sucralfate 1 Gm Tablet) 1 gm PO Q12H COUNTS INCLUDE 234 BEDS AT THE [facility] Last Admin: 02/27/25 09:11 Dose: 1 gm Thiamine HCl (Thiamine 100 Mg/Ml 2ml Sdv) 200 mg IVP Q12H COUNTS INCLUDE 234 BEDS AT THE [facility] Last Admin: 02/27/25 08:03 Dose: 200 mg Venlafaxine HCl (Venlafaxine Er (24hr) 150 Mg Capsule) 150 mg PO DAILY COUNTS INCLUDE 234 BEDS AT [facility] Last Admin: 02/27/25 04:52 Dose: 150 mg Vitals/I&O/Wt Last Vital Signs Temp 97.8 F 02/27/25 08:00 Pulse 73 02/27/25 08:00 Resp 21 H 02/27/25 08:00 BP 128/81 02/27/25 08:00 Pulse Ox 99 02/27/25 08:00 O2 Del Method Room Air 02/26/25 16:00 02/26/25 02/27/25 02/27/25 22:59 06:59 14:59 Intake Total 1147.717 / 1430.034 360 / 1790.034 480 / 480 Output Total 2137 / 2137 Balance -989.283 / -706.966 360 / -346.966 480 / 480 Weight last 48 hrs Weight 69.763 kg Weight 70.7 kg Weight 70.6 kg Weight 70.9 kg Physical Exam Narrative: Patient is comfortable in bed, blood pressure well controlled No respiratory distress. His pupils are reactive Neck is supple Lungs have good air movement Heart regular Anterior chest wall right sided permacath Abdomen is soft positive bowel sounds. Extremities no significant edema. Neuro -he is now awake and alert no distress moving all extremities. Data 02/27/25 03:39 02/27/25 03:39 A&P Assessment and plan 1. ESRD (end stage renal disease) on dialysis: 44-year-old manwith a past medical history of pulmonary embolism on Eliquis, drug-eluting stents, type 2 diabetes mellitus CHF, recent history of right hip fracture who presents [facility] for altered mental status. 1. End-stage renal disease patient on dialysis Tuesday and Tuesday. He is status post dialysis last 2 days. Mental status has improved. -Potassium is 4 bicarbonate 25 BUN of 15 will give a day off of dialysis today. 2. Hypertensive urgency --has improved. He is currently on amlodipine 10 mg a day, chlorthalidone 25 mg daily I am unsure if that works with ESRD, Coreg 25 twice daily, clonidine 0.3 3 times daily, furosemide 40 mg daily, hydralazine 100 mg 3 times daily, lisinopril 20 mg twice daily. Will attempted to start decreasing medications as of now will stop chlorthalidone. Would consider decreasing clonidine if possible. 3. Anemia hemoglobin- 7.3 -please assess for anemia and possible bleeding. The patient does not have significant swelling or tenderness by his hip however would be concerned if he possibly blood from there. His hemoglobin has decreased since recent surgery. Patient has an iron saturation 54% please do not give further iron. Will give Epogen. 4. Phosphorus well-controlled. Medications reviewed. Patient was seen and examined using audiovisual equipment as a telehealth visit. Patient is awake and alert and consents to hemodialysis and to telemedicine. Plan: See above PDMP PDMP Reviewed: Not Reviewed Attestations Medical Necessity Statement*: Anemia, ESRD. Hypertension Time Spent in Patient Care: 16 - 35 minutes (>than 50% of time spent in counselling and/or direct pt care on unit). Coding Level of Care Code Acute Code for g Fwd Diagnoses ESRD (end stage renal disease) on dialysis N18.6; Z99.2
--- NOTE | 2025-02-27 12:38 | PM.DCS ---
Discharge Providers Date of Admission: 02/24/25 15:05 Date of Discharge: February 27, 2025 Attending Provider at Admission: Canelo Fox MD Attending Provider at Discharge: Canelo Fox MD Primary Care Provider: Yaniv Moe MD Diagnoses at Discharge Discharge Diagnosis 1. ESRD (end stage renal disease) on dialysis: Reason for Visit Reason for Visit: ams; nausea Hospital Course Hospital Course Jose Guadalupe Claudio is a 44 year old male with a past medical history of pulmonary embolism on Eliquis, drug-eluting stents, type 2 diabetes mellitus CHF, recent history of right hip fracture who presents [facility] for altered mental status. Currently patient is alert to person, not to place, to time he can follow commands, but is diffusely encephalopathic he keeps repeating numbers, but he is able to answer some questions. He denies any pain complaints, no headache, no blurry vision, no headache, but remains diffusely encephalopathic he can follow some commands he is able to squeeze my fingers bilaterally move both legs, has equal artificial limb fitter strength bilaterally, he is able to smile for me, he is able to track me around the room, pupils are equal round reactive to light, words that he does say I do not notice any slurring of his words or any facial droop, no family members at bedside, hypertensive blood pressure 173/108, pulse 78, respirate 16, temperature 97.5 100% on room air Patient was admitted to [facility] for acute metabolic encephalopathy CT head FINDINGS: Brain: No intracranial hemorrhage. There is global parenchymal volume loss. Periventricular white matter hypoattenuation is nonspecific but most likely due to small vessel disease. No evidence of acute territorial infarct or cerebral edema. No mass effect or midline shift. Nonacute lacunar infarct left basal ganglia. Cerebral ventricles: Prominent ventricles likely secondary to volume loss. Paranasal sinuses: Visualized sinuses are unremarkable. No fluid levels. Mastoid air cells: Visualized mastoid air cells are well aerated. Bones: Unremarkable. No acute fracture. Soft tissues: Unremarkable. CTA head and neck CT/CT angio headneck* [id number] IMPRESSION: No large vessel stenosis or occlusion. IMPRESSION: 1. Patient motion artifact obscures visualization of vascular structures, most prominently the proximal right ICA. 2. Calcified plaque with approximately 50% stenosis in the proximal right ICA. -Iron studies ferritin 2161, iron 59 - Chest x-ray no focal pneumonia -Blood cultures so far no growth, remains afebrile, stop antibiotics -TSH 4 -Ammonia level 21 -ESR 87, CRP 69.3, Pro-Yao 0.57 MRI brain MR/MR head wo con* [id number] IMPRESSION: 1. Normal diffusion imaging. No acute infarct. 2. Mild cerebral and cerebellar atrophy. 3. Mild small vessel changes in the supratentorial white matter and bilaterally within the patrice. 4. RIGHT sphenoid sinus disease. - No nuchal rigidity, Kernig sign negative, brudunki sign negative - Blood pressure 173/108, could be hypertensive encephalopathy? on Cardene drip, will wean off, off Cardene drip, mentation had not improved much - No clinical features associate with strokelike symptoms, nonetheless is on Eliquis, Plavix - Patient was monitored as inpatient, received IV antibiotics blood cultures so far negative antibiotics discontinued - Patient's mentation significantly improved after a session of dialysis -Alert oriented x 3, following all commands, no focal neurologic deficits - Very suspicious that patient's mentation was caused by baclofen - Patient reports that he took baclofen from his - Denies any suicidal ideation, homicidal ideation, denies overdosing - Discussed morbidity and mortality associate with narcotics, muscle relaxers, especially with his end-stage renal disease, risk of overdose - He voiced understanding, all questions answered, all questions answered - I asked for him to avoid narcotics, avoid muscle relaxers - Due to not use any medication that is not prescribed to him NSTEMI - No chest pain complaints - History of CAD -Cardiac echo -CONCLUSIONS Normal left ventricular size. Severe hypokinesis of the mid and basal inferoseptal, inferior and inferolateral wall segments with a mildly reduced EF of 50%. Grade II/IV LV diastolic dysfunction, moderately elevated filling pressures. Normal right ventricular size and systolic function Mild mitral valve regurgitation -Coronary angiogram 10/2024 -Conclusions 1. There is total occlusion coronary artery disease with three vessel disease. 2. Four coronary grafts visualized: two grafts patent, and two grafts occluded. 3. Patient has prior CABG. 4. 1st Diagonal was treated with a Balloon, Drug Eluting Stent, and Balloon. Cardiac echo -CONCLUSIONS Normal left ventricular size. Severe hypokinesis of the mid and basal inferoseptal, inferior and inferolateral wall segments with a mildly reduced EF of 50%. Grade II/IV LV diastolic dysfunction, moderately elevated filling pressures. Normal right ventricular size and systolic function Mild mitral valve regurgitation - Patient was monitored as inpatient, received aspirin, statin, heparin drip - No pain complaints - Cardiology consulted - Rec mended outpatient follow-up with consideration of stress testing - Discharged on Plavix, Eliquis with close follow-up with cardiology For acute on chronic anemia hemoglobin 7.3 - No bloody black stools, hemodynamic compromise - Iron studies, no significant evidence of iron deficiency - But is on Eliquis and Plavix - Discussed risk and benefits with patient, he voiced understanding, all questions answered, agreed proceed with anticoagulant antiplatelet therapy with anemia - Certainly there is a difficult situation as patient needs to be on anticoagulation therapy given above findings - But does also have have anemia -I do believe some component of his anemia is anemia of chronic disease given his end-stage renal disease - Transfused 1 unit PRBC during hospitalization - Discharge Protonix Carafate - Follow up with general surgery for consideration of EGD and colonoscopy in 2 to 4 weeks - Recheck hemoglobin as outpatient in 48 hours - If hemoglobin drops below 7 come back to [facility] Physical Exam Const: COMMON NORMALS: no acute distress and patient oriented x3 Resp: COMMON NORMALS: normal respiratory effort, No retractions, No use of accessory muscles and clear to auscultation bilaterally AUSCULTATION: clear to auscultation bilaterally Cardio: COMMON NORMALS: regular rate, regular rhythm, S1 normal heart sound present and S2 normal heart sound present RATE: regular rate RHYTHM: regular rhythm HEART SOUNDS: S1 normal heart sound present and S2 normal heart sound present GI: COMMON NORMALS: Normal to inspection, nondistended, normoactive bowel sounds present and non-tender Extremity: COMMON NORMALS: no pedal edema Neuro: COMMON NORMALS: patient oriented x3 Psych: COMMON NORMALS: mental status grossly normal Discharge Data Studies Completed and Pending Completed Studies During Hospitalization Category Date Time Status CT angio headneck* [id number] Stat Cat Scan 02/24/25 13:[address] chest abdomen pelvis [CT chest abdpel w/*[id number] Cat Scan 02/25/25 09:42 Completed ] Stat CT head wo con* [id number] Stat Cat Scan 02/24/25 13:46 Completed XR chest 1V portable [id number] Stat Exams 02/24/25 13:46 Completed XR hip RT 2-3V wo/w pel* [id number] Routine Exams 02/24/25 19:58 Completed MR head wo con* [id number] Routine MRI 02/26/25 08:00 Completed CV. echo complete* [id number] Routine Ultrasound 02/24/25 18:21 Completed Pending at discharge Category Date Time Status Blood Culture Stat Lab 02/24/25 16:11 Results Comprehensive Metabolic Panel AM LABS Lab 02/28/25 04:00 Ordered Magnesium AM LABS Lab 02/28/25 04:00 Ordered Occult Blood Stool [Immunochemical Fecal OCB] Routine Lab 02/24/25 16:04 Uncollected Occult Blood Stool [Immunochemical Fecal OCB] Routine Lab 02/27/25 08:08 Uncollected Phosphorus AM LABS Lab 02/28/25 04:00 Ordered Urinalysis Stat Lab 02/24/25 13:46 Uncollected Vancomycin Trough Timed Lab 02/27/25 13:00 Ordered Radiology Impressions Chest X-Ray 02/24/25 13:46 IMPRESSION: No acute findings. Head CT 02/24/25 13:46 IMPRESSION: No acute intracranial findings. ASSESSMENT: ASPECTS (Arlene Stroke Program Early CT Score) is 10. ADDENDUM: 02/24/25 1412 THIS REPORT CONTAINS FINDINGS THAT MAY BE CRITICAL TO PATIENT CARE. The findings were verbally communicated via telephone conference with HARDY APPIAH at 2:10 PM DENTAL LABORATORY TECHNICIAN on 02/24/2025. The findings were acknowledged and understood. Head/Neck CTA 02/24/25 13:46 IMPRESSION: No large vessel stenosis or occlusion. IMPRESSION: 1. Patient motion artifact obscures visualization of vascular structures, most prominently the proximal right ICA. 2. Calcified plaque with approximately 50% stenosis in the proximal right ICA. REFERENCES: NASCET CRITERIA. The degree of stenosis in the cervical segment of the internal carotid artery is based on NASCET criteria. Normal is no stenosis. Mild is less than 50% stenosis. Moderate is 50-69% stenosis. Severe is 70% to 99% stenosis. Total occlusion is no detectable patent lumen. Hip/Pelvis X-Ray 02/24/25 19:58 IMPRESSION: Healing intertrochanteric fracture status post right femoral intramedullary deandra and transverse intertrochanteric fixation screw. Hardware intact. Chest/Abdomen/Pelvis CT 02/25/25 09:42 IMPRESSION: 1. No acute chest findings. 2. Fluid distended stomach with air-fluid level. 3. Mild fluid distention of the gallbladder. No gallbladder wall thickening or pericholecystic fluid. 4. Bilateral renal atrophy. No hydronephrosis. 5. No acute findings in the abdomen or pelvis. Head MRI 02/26/25 08:00 IMPRESSION: 1. Normal diffusion imaging. No acute infarct. 2. Mild cerebral and cerebellar atrophy. 3. Mild small vessel changes in the supratentorial white matter and bilaterally within the patrice. 4. RIGHT sphenoid sinus disease. Laboratory Results WBC 9.31 10^3/uL (3.29-11.43) 02/27/25 03:39 RBC 2.47 10^6/uL (3.85-5.65) L 02/27/25 03:39 Hgb 7.30 g/dL (11.27-16.99) L 02/27/25 03:39 Hct 24.4 % (37-53) L 02/27/25 03:39 MCV 98.8 fl (82-101) 02/27/25 03:39 MCH 29.6 pg (27-33) 02/27/25 03:39 MCHC 29.9 g/dL (30-55) L 02/27/25 03:39 RDW 16.9 % (12.1-15.1) H 02/27/25 03:39 Plt Count 290 10^3/cmm (157-399) 02/27/25 03:39 MPV 9.6 fL (7.4-10.4) 02/27/25 03:39 Neut % (Auto) 70.7 % 02/27/25 03:39 Lymph % (Auto) 14.4 % 02/27/25 03:39 [place] % (Auto) 10.5 % 02/27/25 03:39 Eos % (Auto) 3.1 % 02/27/25 03:39 Baso % (Auto) 1.0 % 02/27/25 03:39 Neut # (Auto) 6.58 10^3/uL (1.8-7.7) 02/27/25 03:39 Lymph # (Auto) 1.3 10^3/uL (0.8-4.8) 02/27/25 03:39 [place] # (Auto) 1.0 10^3/uL (0.2-0.9) H 02/27/25 03:39 Eos # (Auto) 0.3 10^3/uL (0.0-0.8) 02/27/25 03:39 Baso # (Auto) 0.1 10^3/uL (0.0-0.1) 02/27/25 03:39 Nucleated RBC % (auto) 0 % 02/27/25 03:39 Nucleated RBCs # 0.0 /100WBC 02/27/25 03:39 ESR 87 mm/hr (0-10) H 02/24/25 13:49 PT 15.10 SECONDS (12.1-14.9) H 02/24/25 13:49 INR 1.11 (0.8-1.2) 02/24/25 13:49 APTT 75.2 SECONDS (23.9-36.7) H 02/26/25 17:00 Sodium 140 mmol/L (136-145) 02/27/25 03:39 Potassium 4.1 mmol/L (3.5-5.1) 02/27/25 03:39 Chloride 99 mmol/L (98-107) 02/27/25 03:39 Carbon Dioxide 25 mmol/L (22-29) 02/27/25 03:39 Anion Gap 20.1 (5-19) H 02/27/25 03:39 BUN 15 mg/dL (6-20) 02/27/25 03:39 Creatinine 3.5 mg/dL (0.7-1.2) H 02/27/25 03:39 GFR Calculation 19.0 mL/min (90-130) L 02/27/25 03:39 Glucose 131 mg/dL (65-115) H 02/27/25 03:39 POC Glucose 187 mg/dL (70-110) H 02/27/25 06:39 Calculated Osmolality 293 mOsm/kg (285-295) 02/27/25 03:39 Lactic Acid 1.4 mmol/L (0.5-2.2) 02/24/25 13:49 Uric Acid 3.4 mg/dL (3.4-7.0) 02/26/25 06:26 Calcium 9.9 mg/dL (8.5-10.5) 02/27/25 03:39 Phosphorus 4.1 mg/dL (2.5-4.5) 02/27/25 03:39 Magnesium 2.1 mg/dL (1.7-2.3) 02/27/25 03:39 Iron 65 ug/dL (59-158) 02/27/25 03:39 TIBC 119 mcg/dl 02/27/25 03:39 % Saturation 54.6 % (20-50) H 02/27/25 03:39 Unsat Iron Binding 54 ug/dL (112-347) L 02/27/25 03:39 Ferritin 2312 ng/mL (30-400) H 02/26/25 06:26 Total Bilirubin 0.6 mg/dL (0.15-1.2) 02/27/25 03:39 AST 10 U/L (0-40) 02/27/25 03:39 ALT < 5 U/L (0-41) 02/27/25 03:39 Alkaline Phosphatase 79 U/L (40-130) 02/27/25 03:39 Ammonia 21 umol/L (16-60) 02/24/25 16:10 Troponin T 5th Gen ng/L 330 ng/L (0-15) H* 02/25/25 03:20 Troponin T Baseline 307 ng/L (0-15) H* 02/24/25 16:10 Troponin T 120 Minute 323.8 ng/L (0-15) H 02/24/25 18:10 Delta Troponin T 16.8 ABS# (0-10) H* 02/24/25 18:10 Troponin T Hi Sens 6Hr 326.2 ng/L (0-15) H 02/24/25 22:05 Troponin T Hi Sens 6Hr Delta 19.2 ng/L (0-12) H* 02/24/25 22:05 C-Reactive Protein 69.3 mg/L (0.0-4.9) H 02/24/25 13:49 Total Protein 7.1 g/dL (6.6-8.7) 02/27/25 03:39 Albumin 3.4 g/dL (3.5-5.2) L 02/27/25 03:39 Globulin 3.7 g/dL (1.3-4.6) 02/27/25 03:39 Vitamin B12 441 pg/mL (232-1245) 02/25/25 03:20 Procalcitonin 0.57 ng/mL (0-0.5) H 02/24/25 13:49 TSH 4.08 uIU/mL (0.27-4.20) 02/25/25 03:20 PTH Intact 139.0 pg/mL (15-65) H 02/27/25 03:39 Calcium (PTH Intact) 9.5 mg/dL (8.5-10.5) 02/27/25 03:39 Vancomycin Trough 11.7 ug/mL (10-15) 02/25/25 20:37 Hep Bs Antigen Non-reactive (Nonreactive) 02/25/25 03:20 Hep Bs Antibody 65.0 (11.5-1000) 02/25/25 03:20 Hepatitis C Antibody Non-reactive (Nonreactive) 02/25/25 03:20 Influenza A (PCR) Negative (Negative) 02/24/25 17:39 Influenza Type B (PCR) Negative (Negative) 02/24/25 17:39 RSV (PCR) Negative (Negative) 02/24/25 17:39 SARS-CoV-2 (PCR) Negative (Negative) 02/24/25 17:39 Blood Type AB Positive 02/27/25 08:27 Rho(D) Type Rh positive 02/27/25 08:27 Antibody Screen Negative 02/27/25 08:27 Crossmatch See Detail 02/27/25 08:27 Vitals Last Vital Signs Temp 98.9 F 02/27/25 11:58 Pulse 64 02/27/25 12:00 Resp 20 H 02/27/25 12:00 BP 121/84 02/27/25 12:00 Pulse Ox 98 02/27/25 12:00 O2 Del Method Room Air 02/26/25 16:00 Discharge Plan Discharge Patient Disposition: Home Condition: Stable Prescriptions: New sucralfate 1 gram Tablet 1 g PO Q12H 30 Days Qty: 60 0RF thiamine HCl (vitamin B1) 100 mg tablet 100 mg PO DAILY 30 Days Qty: 30 0RF Continued oxycodone 5 mg tablet 5 mg PO Q6H PRN (Reason: pain) 7 Days Qty: 28 0RF clopidogrel 75 mg tablet 75 mg PO DAILY Qty: 90 3RF Eliquis 5 mg tablet See Rx Instructions .ROUTE .COMPLEX Qty: 180 2RF Dose Instruction: TAKE ONE TABLET BY MOUTH TWICE DAILY AT 9am AND 9pm Rx Instructions: TAKE ONE TABLET BY MOUTH TWICE DAILY AT 9am AND 9pm buspirone 5 mg tablet 5 mg PO TID loperamide 2 mg capsule See Rx Instructions .ROUTE .COMPLEX Rx Instructions: TAKE 1 CAPSULE BY MOUTH IN THE MORNING AND 3 IN THE EVENING venlafaxine 150 mg capsule,extended release 24hr 150 mg PO DAILY hydralazine 100 mg tablet 100 mg PO TID ropinirole 0.5 mg tablet 0.5 mg PO QPM mirtazapine 15 mg tablet 7.5 mg PO QPM sevelamer carbonate 800 mg tablet See Rx Instructions .ROUTE .COMPLEX Rx Instructions: TAKE 2 TABLETS BY MOUTH WITH THE LARGEST MEAL OF THE DAY AND 1 TABLET WITH OTHER MEALS (4 TABLETS TOTAL PER DAY) sodium bicarbonate 325 mg tablet 325 mg PO DAILY PRN (Reason: Stomach ACID) clonidine HCl 0.3 mg tablet 0.3 mg PO TID insulin glargine [Lantus Solostar U-100 Insulin] 100 unit/mL (3 mL) Insulin Pen 10 unit SUBCUT QPM isosorbide mononitrate 30 mg tablet extended release 24 hr 30 mg PO DAILY amlodipine 5 mg tablet 10 mg PO QPM 30 Days Qty: 60 0RF RenaPlex-D 800 mcg-12.5 mg -2,000 unit tablet See Rx Instructions .ROUTE .COMPLEX Rx Instructions: TAKE 1 TABLET BY MOUTH EVERY DAY (ON DIALYSIS DAYS, TAKE AFTER DIALYSIS TREATMENT) megestrol 400 mg/10 mL (40 mg/mL) suspension 400 mg PO DAILY insulin lispro 100 unit/mL insulin pen See Rx Instructions .ROUTE .COMPLEX Rx Instructions: Inject 15 units 3 times daily subcutaneously per sliding scale as needed for high blood sugar. gabapentin 300 mg capsule 300 mg PO BEDTIME pantoprazole 40 mg tablet,delayed release (DR/EC) 40 mg PO BIDWM Qty: 84 0RF Changed bumetanide 2 mg tablet 2 mg PO DAILY 30 Days Qty: 30 0RF Rx Instructions: ON NON-DIALYSIS DAYS lisinopril 20 mg tablet 20 mg PO BIDWM 30 Days Qty: 60 0RF carvedilol 25 mg tablet 25 mg PO BID 30 Days Qty: 60 0RF Discontinued furosemide [Lasix] 40 mg tablet 40 mg PO DAILY Rx Instructions: On non dialysis days Discharge Order = DC NOW: Discharge Order (Routine); Ordered 02/27/25 Ordered By: Canelo Fox Referrals: Jose Guadalupe Teresa MD [Physician, General Surgery] - 1 week Discharge Diet: Cardiac Discharge Activity: Resume usual activity Patient Instructions: Anemia, Sucralfate (By mouth), Thiamine (By mouth), Chronic Hypertension (DC), End Stage Kidney Disease (DC), Encephalopathy (DC), Opioid Safety, Patient Portal & [place] Instructions Activity Restrictions/Additional Instructions: - Please avoid baclofen use, avoid narcotics - Please have your primary care provider recheck your hemoglobin in 24 hours - Please continue Plavix, Eliquis - If you develop bloody black stools go to the emergency room -Please have primary care provider recheck hemoglobin in 48 hours - Follow-up with general surgery in 2 to 4 weeks for consideration of EGD - Follow-up with cardiology in 1 week - If any chest pain go to the emergency room Discharge Attestations Time Spent in Discharge Care*: greater than 30 min Status at Discharge: Cognitive status at discharge: cognitively intact, Behavioral status at discharge: cooperative, Quality Metrics Clinical Quality Measures [ No reported AMI, CVA or VTE this stay] Coding Level of Care Code 34204 Total time (in minutes) for Discharge: 45 Diagnoses ESRD (end stage renal disease) on dialysis N18.6; Z99.2
--- NOTE | 2025-02-27 14:44 | PC.NURSE ---
1 unit prbc's infused.no s/sxs transfusion reaction or fluid overload noted
--- NOTE | 2025-02-27 15:31 | PC.NURSE ---
discharge instructions given and explained..pt verb understanding of instructions...discharged via w/c to exit at this time.spouse to drive pt home
== END 2025-02-27 15:32 | disposition home or self-care (01) | DRG 70 ==
LOC: ER 15:14 → CSU 15:24
PROVIDERS: Internal Medicine Nephrology; Admitting Provider Family Medicine; Emergency Provider Emergency Medicine; PCP Family Medicine; Visit Provider Family Medicine
DX: G93.41 Metabolic encephalopathy (principal); N18.6 End stage renal disease; I13.2 Hypertensive heart and chronic kidney disease with heart failure and with stage 5 chronic kidney disease, or end stage renal disease; I16.0 Hypertensive urgency; F17.200 Nicotine dependence, unspecified, uncomplicated; R79.89 Other specified abnormal findings of blood chemistry; E11.22 Type 2 diabetes mellitus with diabetic chronic kidney disease; J45.909 Unspecified asthma, uncomplicated; E11.42 Type 2 diabetes mellitus with diabetic polyneuropathy; E78.5 Hyperlipidemia, unspecified; I25.5 Ischemic cardiomyopathy; G25.81 Restless legs syndrome; D63.1 Anemia in chronic kidney disease; I50.9 Heart failure, unspecified; I25.10 Atherosclerotic heart disease of native coronary artery without angina pectoris; Z99.2 Dependence on renal dialysis; Z95.1 Presence of aortocoronary bypass graft; Z79.899 Other long term (current) drug therapy; Z79.4 Long term (current) use of insulin; Z79.01 Long term (current) use of anticoagulants; Z79.02 Long term (current) use of antithrombotics/antiplatelets; Z95.5 Presence of coronary angioplasty implant and graft; Z98.890 Other specified postprocedural states; Z91.148 Patient's other noncompliance with medication regimen for other reason; Z11.52 Encounter for screening for COVID-19; Z86.711 Personal history of pulmonary embolism
CPT/HCPCS: 36415; 36416; 36430; 70450; 70496; 70498; 70551; 71045; 71260; 73502; 74177; 80053; 80202; 82140; 82310; 82607; 82728; 82962; 83540; 83550; 83605; 83735; 83970; 84100; 84145; 84443; 84484; 84550; 85025; 85049; 85610; 85651; 85730; 86140; 86706; 86803; 86850; 86900; 86920; 87040; 87340; 87637; 90935; 92507; 92523; 92526; 92610; 93005; 93306; 94664; 96372; 96374; 96375; 97110; 97167; 99285; J0360; J1171; J1644; J1815; J2060; J2270; J2404; J2405; J2543; J3373; J3411; J3490; J7050; J9999; P9040; Q3014

== ENCOUNTER 2025-03-11 05:00 | Outpatient (RCR) | payer MEDICARE, SELFPAY | END 2025-04-10 23:59 | disposition home or self-care (01) | LOC: SPT 05:00 | PROVIDERS: PCP Family Medicine; Visit Provider Physician Assistant | DX: S72.001D Fracture of unspecified part of neck of right femur, subsequent encounter for closed fracture with routine healing (principal); X58.XXXD Exposure to other specified factors, subsequent encounter | CPT/HCPCS: 97110; 97163; 97530 ==